=== PATIENT | female | born 1995 | race Caucasian/White ===

== ENCOUNTER 2023-01-25 14:54 | Outpatient (OUT) | payer OTHER, SELFPAY ==
[2023-01-25 15:48] LABS: Basophils Absolute Auto 0.1 10^3/uL (0.0-0.1); Basophils Percent Auto 0.7 % (0.2-2.0); Eosinophils Absolute Auto 0.1 10^3/uL (0.0-0.7); Eosinophils Percent Auto 1.1 % (0.9-7.0); Hematocrit 38.8 % (36.0-48.0); Immature Granulocytes Abs Auto 0.04 10^3/uL (0.00-0.03); Immature Granulocytes Pct Auto 0.4 % (0.0-0.5); Lymphocytes Absolute Auto 3.5 10^3/uL (1.2-3.8); Lymphocytes Percent Auto 39.2 % (20.5-60.0); Mean Corpuscular HGB Conc 33.5 g/dL (29.9-35.2); Mean Corpuscular Hemoglobin 29.1 pg (26.7-34.0); Mean Platelet Volume 9.8 fL (9.5-13.5); Monocytes Absolute Auto 0.6 10^3/uL (0.3-0.8); Monocytes Percent Auto 6.6 % (1.7-12.0); Neutrophils Absolute Auto 4.6 10^3/uL (1.4-6.5); Platelet Count 337 10^3/uL (150-450); Red Blood Count 4.46 10^6/uL (4.20-5.40); Red Cell Distribution Width 12.4 % (11.0-15.0); White Blood Count 8.9 10^3/uL (4.0-11.0)
[2023-01-25 16:45] LABS: Percent Iron Saturation 22.5 %
[2023-01-25 17:31] LABS: Alanine Aminotransferase 46 U/L (14-59); Albumin Globulin Ratio 1.1; Alkaline Phosphatase 79 U/L (46-116); Aspartate Amino Transferase 17 U/L (15-37); Bilirubin Total 0.3 mg/dL (0.2-1.0); Calcium 8.3 mg/dL (8.5-10.1); Carbon Dioxide 25.7 mmol/L (21.0-32.0); Chloride 106 mmol/L (98-107); Estimated GFR (African America >60 (>=60); Estimated GFR (Non-African Ame >60 (>=60); Globulin 3.6 g/dL; Phosphorus 4.4 mg/dL (2.6-4.7); Potassium 3.7 mmol/L (3.5-5.1); Sodium 143 mmol/L (136-145); Total Protein 7.6 g/dL (6.4-8.2)
[2023-01-25 18:14] LABS: Glucose 47 mg/dL (74-106)
[2023-01-29 17:08] LABS: Vitamin B1 (Thiamine), Blood 143.1 nmol/L (66.5-200.0)
== END 2023-01-25 14:55 | disposition home or self-care (01) ==
LOC: LAB 14:54
DX: Z98.84 Bariatric surgery status (principal); K90.9 Intestinal malabsorption, unspecified
CPT/HCPCS: 36415; 80053; 80061; 82306; 82607; 82728; 82746; 83540; 83550; 83735; 84100; 84425; 85025

== ENCOUNTER 2023-08-13 11:31 | Outpatient (OUT) | payer OTHER, SELFPAY ==
--- NOTE | 2023-08-13 11:34 | US_ITS ---
The [address] [address] Patient Name: SAMREEN WEINER MRN: [id number] date: 1995 Sex: F Assigned Patient Location: [facility] Current Patient Location: [facility] Accession/Order Number: [id number] Exam Date: 08/13/2023 11:33 Report Date: 08/13/2023 14:53 At the request of: CLINTON GALLARDO Procedure: US pelvis w/ transvaginal EXAMINATION: US pelvis w/ transvaginal HISTORY: PELVIC PAIN COMPARISON: No relevant comparison available. FINDINGS: Transabdominal and transvaginal images The uterus is normal in size, contour and myometrial echotexture measuring 9.2 x 3.8 x 6.2 cm. The uterus is anteverted. No focal myometrial mass The endometrium measures 11 mm, normal. The right ovary is normal measuring 3.9 x 1.6 x 3.1 cm. Normal color Doppler flow. The left ovary measures 3.7 x 1.9 x 2.0 cm. Normal color Doppler flow. Area of anechoic echogenicity measuring 2.1 cm, simple cyst. No free fluid US/US pelvis w/ transvaginal IMPRESSION: No acute abnormality Electronically authenticated by: GENARO RODRÍGUEZ Date: 08/13/2023 14:53
== END 2023-08-13 11:32 | disposition home or self-care (01) ==
LOC: NOMS 11:32
PROVIDERS: PCP Family Medicine; Visit Provider Obstetrics & Gynecology
DX: R10.2 Pelvic and perineal pain (principal)
CPT/HCPCS: 76830; 76856

== ENCOUNTER 2023-11-05 20:33 | Outpatient (REF) | payer OTHER, SELFPAY | END 2023-11-05 20:34 | disposition home or self-care (01) | LOC: LAB 20:33 | PROVIDERS: PCP Family Medicine; Visit Provider Obstetrics & Gynecology | DX: Z01.419 Encounter for gynecological examination (general) (routine) without abnormal findings (principal) | CPT/HCPCS: 88175 ==

== ENCOUNTER 2024-02-03 15:54 | Outpatient (OUT) | payer OTHER, SELFPAY ==
[2024-02-03 16:30] LABS: Basophils Absolute Auto 0.1 10^3/uL (0.0-0.1); Basophils Percent Auto 0.6 % (0.2-2.0); Eosinophils Absolute Auto 0.1 10^3/uL (0.0-0.7); Eosinophils Percent Auto 0.9 % (0.9-7.0); Hematocrit 43.7 % (36.0-48.0); Hemoglobin 14.4 g/dL (12.0-16.0); Immature Granulocytes Abs Auto 0.03 10^3/uL (0.00-0.03); Immature Granulocytes Pct Auto 0.3 % (0.0-0.5); Lymphocytes Absolute Auto 4.2 10^3/uL (1.2-3.8); Lymphocytes Percent Auto 38.1 % (20.5-60.0); Mean Corpuscular Hemoglobin 28.5 pg (26.7-34.0); Mean Corpuscular Volume 86.4 fL (81.0-99.0); Mean Platelet Volume 9.8 fL (9.5-13.5); Monocytes Absolute Auto 0.7 10^3/uL (0.3-0.8); Monocytes Percent Auto 6.2 % (1.7-12.0); Neutrophils Absolute Auto 5.9 10^3/uL (1.4-6.5); Neutrophils Percent Auto 53.9 % (43.0-75.0); Platelet Count 430 10^3/uL (150-450); Red Blood Count 5.06 10^6/uL (4.20-5.40); Red Cell Distribution Width 12.4 % (11.0-15.0)
[2024-02-03 17:53] LABS: Alanine Aminotransferase 42 U/L (14-59); Albumin Globulin Ratio 1.1; Albumin Level 4.1 g/dL (3.4-5.0); Alkaline Phosphatase 77 U/L (46-116); Anion Gap 16.7; Aspartate Amino Transferase 22 U/L (15-37); BUN Creatinine Ratio 28.2; Bilirubin Total 0.3 mg/dL (0.2-1.0); Calcium 8.8 mg/dL (8.5-10.1); Carbon Dioxide 22.7 mmol/L (21.0-32.0); Chloride 101 mmol/L (98-107); Estimated GFR (African America >60 (>=60 mL/min/1.73m^2); Estimated GFR (Non-African Ame >60 (>=60 mL/min/1.73m^2); Globulin 3.8 g/dL; Glucose 96 mg/dL (74-106); Magnesium 1.9 mg/dL (1.8-2.4); Phosphorus 3.4 mg/dL (2.6-4.7); Potassium 3.4 mmol/L (3.5-5.1); Sodium 137 mmol/L (136-145); Total Protein 7.9 g/dL (6.4-8.2)
[2024-02-05 04:08] LABS: Vitamin B12 1080 pg/mL (232-1245)
== END 2024-02-03 15:55 | disposition home or self-care (01) ==
LOC: LAB 15:54
PROVIDERS: PCP Family Medicine; Visit Provider Nurse Practitioner Family
DX: K90.9 Intestinal malabsorption, unspecified (principal); Z98.84 Bariatric surgery status
CPT/HCPCS: 36415; 80053; 82306; 82607; 82728; 82746; 83540; 83550; 83735; 84100; 84425; 85025

== ENCOUNTER 2024-04-13 13:52 | Emergency (ER) | payer MEDICAID, SELFPAY ==
[2024-04-13 14:03] VITALS: BP 153/51; PULSE 74; TEMP 36.6; O2SAT 100; BMI 28.3
--- NOTE | 2024-04-13 14:14 | ED_ITS ---
HPI - Abdominal Pain General Chief Complaint: Abdominal Pain Stated Complaint: ABDOMINAL PAIN Time Seen by Provider: 04/13/24 14:08 History of Present Illness HPI narrative: 29 year old female presents to the ED for epigastric pain. Onset was this morning. Denies fever, chills, injury, N/V/D, urinary sx. She is 8 weeks ; she does not feel that is related to her pain today. States she has had numerous abd surgeries and has known abd hernias. Reports gastric sleeve in 2018. She had a revision with bypass surgery and a hernia repair in 2021. Reports abdominoplasty within the past 2-3 years as well. She has also had a c- section. Denies vaginal bleeding or discharge. Denies lower abd pain. Related Data Allergies Allergy/AdvReac Type Severity Reaction Status Date / Time clindamycin AdvReac Severe Anaphylaxis Verified 04/13/24 14:03 Penicillins AdvReac Severe Rash Verified 04/13/24 14:03 Review of Systems ROS Constitutional Denies: fever or chills Ears, nose, mouth, and throat Denies: throat pain or neck pain Cardiovascular Denies: chest pain Respiratory Denies: shortness of breath Gastrointestinal Reports: abdominal pain; Denies: nausea, vomiting or diarrhea Genitourinary Denies: painful urination or urinary frequency Musculoskeletal Denies: back pain or neck pain Integumentary/Breast Denies: rash Neurological Denies: headache or dizziness PFSH PFSH Social History Little interest or pleasure in doing things: not at all Feeling down, depressed, or hopeless: not at all Exam Constitutional Vital Signs, click to edit/add: Last Vital Signs Temp 97.9 F 04/13/24 14:03 Pulse 84 04/13/24 15:50 Resp 18 04/13/24 15:50 BP 120/84 04/13/24 15:50 Pulse Ox 98 04/13/24 15:50 O2 Del Method Room Air 04/13/24 15:50 Common normals: no apparent distress and oriented x3 General appearance: cooperative HENMT Mouth: lip normal and tongue normal Eye Common normals: conjunctivae normal and no scleral icterus Neck & C-Spine Common normals: supple Respiratory Common normals: normal respiratory effort Effort & inspection: able to speak in complete sentences Cardio Common normals: regular rate and regular rhythm GI Common normals: Normal to inspection, nondistended, normoactive bowel sounds present and soft to palpation Palpation: soft and tender Details: epigastric; no guarding and not rigid Neuro Common normals: oriented x3 and moves all extremities Sensorium/orientation: awake and alert Speech: speech normal Course Vital Signs Vital signs: Vital Signs Temperature 97.9 F 04/13/24 14:03 Pulse Rate 74 04/13/24 14:03 Respiratory Rate 18 04/13/24 14:03 Blood Pressure 153/51 H 04/13/24 14:03 Pulse Oximetry 100 04/13/24 14:03 Temperature 97.9 F 04/13/24 14:03 Pulse Rate 84 04/13/24 15:50 Respiratory Rate 18 04/13/24 15:50 Blood Pressure 120/84 04/13/24 15:50 Pulse Oximetry 98 04/13/24 15:50 Oxygen Delivery Method Room Air 04/13/24 15:50 MDM - Abdominal Pain MDM Narrative Medical decision making narrative: Laboratory studies were unremarkable. Pt is . She was given a GI cock tail and Tylenol with some improvement in her sx. She was comfortable being discharged home. Follow up with pcp, [facility], and bypass surgeon for a recheck, further evaluation and treatment. Differential Diagnosis Differential diagnosis: Likely abdominal pain, gastroenteritis and other (dyspepsia) Medical Records Attestation: I reviewed the patient's medical records. Lab Data Attestation: I reviewed the patient's lab results. Labs: Lab Results 04/13/24 04/13/24 Range/Units 14:10 14:55 WBC 12.0 H (4.0-11.0) 10^3/uL RBC 4.85 (4.20-5.40) 10^6/uL Hgb 14.0 (12.0-16.0) g/dL Hct 40.8 (36.0-48.0) % MCV 84.1 (81.0-99.0) fL MCH 28.9 (26.7-34.0) pg MCHC 34.3 (29.9-35.2) g/dL RDW 12.8 (11.0-15.0) % Plt Count 431 (150-450) 10^3/uL MPV 9.8 (9.5-13.5) fL Neut % (Auto) 61.4 (43.0-75.0) % Lymph % (Auto) 30.8 (20.5-60.0) % [place] % (Auto) 6.2 (1.7-12.0) % Eos % (Auto) 0.7 L (0.9-7.0) % Baso % (Auto) 0.6 (0.2-2.0) % Neut # (Auto) 7.4 H (1.4-6.5) 10^3/uL Lymph # (Auto) 3.7 (1.2-3.8) 10^3/uL [place] # (Auto) 0.7 (0.3-0.8) 10^3/uL Eos # (Auto) 0.1 (0.0-0.7) 10^3/uL Baso # (Auto) 0.1 (0.0-0.1) 10^3/uL Abs Immat Gran (auto) 0.04 H (0.00-0.03) 10^3/uL Imm/Tot Granulo (auto) 0.3 (0.0-0.5) % Sodium 138 (136-145) mmol/L Potassium 3.6 (3.5-5.1) mmol/L Chloride 103 (98-107) mmol/L Carbon Dioxide 23.5 (21.0-32.0) mmol/L Anion Gap 15.1 BUN 7.0 (7.0-18.0) mg/dL Creatinine 0.65 (0.55-1.02) mg/dL Est GFR ( Amer) >60 (>=60 mL/min/1.73m^2) Est GFR (Non-Af Amer) >60 (>=60 mL/min/1.73m^2) BUN/Creatinine Ratio 10.8 Glucose 85 (74-106) mg/dL Calcium 8.7 (8.5-10.1) mg/dL Total Bilirubin 0.3 (0.2-1.0) mg/dL AST 16 (15-37) U/L ALT 24 (14-59) U/L Alkaline Phosphatase 73 (46-116) U/L Total Protein 7.9 (6.4-8.2) g/dL Albumin 3.8 (3.4-5.0) g/dL Globulin 4.1 g/dL Albumin/Globulin Ratio 0.9 Lipase 46.0 (16.0-77.0) U/L Urine Color Lt. yellow (YELLOW) Urine Clarity Clear (CLEAR) Urine pH 5.5 (5.0-9.0) Ur Specific [place] >=1.030 A (1.005-1.025) Urine Protein Negative (NEG/TRACE) mg/dL Urine Glucose (UA) Negative (NEGATIVE) mg/dL Urine Ketones Negative (NEGATIVE) mg/dL Urine Occult Blood Negative (NEGATIVE) Urine Nitrite Negative (NEGATIVE) Urine Bilirubin Negative (NEGATIVE) Urine Urobilinogen 0.2 (0.2-1.0) EU/dL Ur Leukocyte Esterase Negative (NEGATIVE) Urine HCG, Qual Positive A (NEGATIVE) Discharge Plan Discharge Chief Complaint: Abdominal Pain Clinical Impression: Abdominal pain, epigastric Patient Disposition: Home, Self-Care Time of Disposition Decision: 16:31 Condition: Good Mode of Transportation: Private Vehicle Print Language: Bhutanese Instructions: Abdominal Pain in (ED), Epigastric Pain (ED) Additional Instructions: Return to the ER for worsening symptoms. Referrals: NARINDER HERNANDEZ [Primary Care Provider] - 1 week Discharge Date/Time: 04/13/24 16:59
[2024-04-13 14:25] LABS: Basophils Absolute Auto 0.1 10^3/uL (0.0-0.1); Basophils Percent Auto 0.6 % (0.2-2.0); Eosinophils Absolute Auto 0.1 10^3/uL (0.0-0.7); Eosinophils Percent Auto 0.7 % (0.9-7.0); Hematocrit 40.8 % (36.0-48.0); Immature Granulocytes Abs Auto 0.04 10^3/uL (0.00-0.03); Immature Granulocytes Pct Auto 0.3 % (0.0-0.5); Lymphocytes Absolute Auto 3.7 10^3/uL (1.2-3.8); Lymphocytes Percent Auto 30.8 % (20.5-60.0); Mean Corpuscular HGB Conc 34.3 g/dL (29.9-35.2); Mean Corpuscular Hemoglobin 28.9 pg (26.7-34.0); Mean Corpuscular Volume 84.1 fL (81.0-99.0); Mean Platelet Volume 9.8 fL (9.5-13.5); Monocytes Absolute Auto 0.7 10^3/uL (0.3-0.8); Monocytes Percent Auto 6.2 % (1.7-12.0); Neutrophils Absolute Auto 7.4 10^3/uL (1.4-6.5); Neutrophils Percent Auto 61.4 % (43.0-75.0); Platelet Count 431 10^3/uL (150-450); Red Blood Count 4.85 10^6/uL (4.20-5.40); Red Cell Distribution Width 12.8 % (11.0-15.0)
[2024-04-13 14:40] LABS: Alanine Aminotransferase 24 U/L (14-59); Albumin Globulin Ratio 0.9; Albumin Level 3.8 g/dL (3.4-5.0); Alkaline Phosphatase 73 U/L (46-116); Anion Gap 15.1; Aspartate Amino Transferase 16 U/L (15-37); BUN Creatinine Ratio 10.8; Bilirubin Total 0.3 mg/dL (0.2-1.0); Calcium 8.7 mg/dL (8.5-10.1); Carbon Dioxide 23.5 mmol/L (21.0-32.0); Chloride 103 mmol/L (98-107); Estimated GFR (African America >60 (>=60 mL/min/1.73m^2); Estimated GFR (Non-African Ame >60 (>=60 mL/min/1.73m^2); Globulin 4.1 g/dL; Glucose 85 mg/dL (74-106); Potassium 3.6 mmol/L (3.5-5.1); Sodium 138 mmol/L (136-145); Total Protein 7.9 g/dL (6.4-8.2)
[2024-04-13 15:04] LABS: Bilirubin Urine NEGATIVE (NEGATIVE); Blood Urine NEGATIVE (NEGATIVE); Clarity Urine CLEAR (CLEAR); Color Urine LT. YELLOW (YELLOW); Glucose Urine UA NEGATIVE (NEGATIVE); Ketones Urine NEGATIVE (NEGATIVE); Leukocyte Esterase Urine NEGATIVE (NEGATIVE); Nitrite Urine NEGATIVE (NEGATIVE); Protein Urine NEGATIVE (NEG/TRACE); Specific Gravity Urine >=1.030 (1.005-1.025); Urobilinogen Urine 0.2 EU/dL (0.2-1.0); pH Urine 5.5 (5.0-9.0)
[2024-04-13 15:07] LABS: HCG Qualitative Urine* POSITIVE (NEGATIVE); Internal Control Within Normal Limits
[2024-04-13 15:09] LABS: Urine Microscopic Indicated NO
[2024-04-13] MEDS: lidocaine HCL 15 ML, MAG HYDROX/ALUMINUM HYD/SIMETH 30 ML, HYOSCYAMINE SULFATE 0.25 MG PO (15:47)
[2024-04-13] MEDS: ACETAMINOPHEN 500 MG TABLET 1000 MG PO (15:48)
[2024-04-13 15:50] VITALS: BP 120/84; PULSE 84; O2SAT 98
== END 2024-04-13 16:59 | disposition home or self-care (01) ==
PROVIDERS: Nurse Practitioner Family; Emergency Provider Emergency Medicine; PCP Family Medicine
DX: O99.891 Other specified diseases and conditions complicating pregnancy (principal); R10.13 Epigastric pain; O99.841 Bariatric surgery status complicating pregnancy, first trimester; Z3A.08 8 weeks gestation of pregnancy; O34.219 Maternal care for unspecified type scar from previous cesarean delivery
CPT/HCPCS: 36415; 80053; 81003; 83690; 84703; 85025; 99284

== ENCOUNTER 2024-04-17 09:23 | Outpatient (OUT) | payer MEDICAID, SELFPAY ==
--- NOTE | 2024-04-17 09:27 | US_ITS ---
[address] [address] Patient Name: SAMREEN MARS MRN: [id number] date: 1995 Sex: F Assigned Patient Location: [facility] Current Patient Location: [facility] Accession/Order Number: [id number] Exam Date: 04/17/2024 09:28 Report Date: 04/17/2024 11:10 At the request of: CLINTON GALLARDO Procedure: US OB transvaginal EXAMINATION: US OB transvaginal HISTORY: MISSED MENSES COMPARISON: No relevant comparison available. FINDINGS: Transvaginal images Dooley intrauterine gestation Gestational sac: 3.53 cm, 8 weeks 5 days CRL: 2.72 cm Heart rate: 174 beats minute Cervix: Closed, 4.3 cm The uterus is normal, anteverted, anteflexed The ovaries are normal Clinical age: 9 weeks 1 day Clinical CALOS: 11/19/2024 Ultrasound age: 9 weeks 4 days Ultrasound [facility]OS: 11/16/2024 US/US OB transvaginal IMPRESSION: Viable dooley intrauterine gestation measuring 9 weeks 4 days Electronically authenticated by: GENARO RODRÍGUEZ Date: 04/17/2024 11:10
--- OUTSIDE RECORDS SUMMARY | 2024-04-17 09:46 | XMS_ITS | CCD ---
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 Name Role Phone XENA MCCALLUM Sheree Primary Care Physician [phone] DESMOND, DR DUNG English Admitting Unavailable COOK, DR DUNG English Attending Unavailable MARY, DR BARCENAS Primary Care Unavailable COOK, DR DUNG English Consulting Unavailable ZIEBSAHIL, DR MELLISSA Higgins Consulting Unavailable MISC, DR NINO Admitting Unavailable MISC, DR NINO Attending Unavailable MARY, DR BARCENAS Primary Care Unavailable MISC, DR NINO Consulting Unavailable MISC, DR NINO Admitting Unavailable MISC, DR NINO Attending Unavailable MARY, DR BARCENAS [facility] Care Unavailable MISC, DR NINO Consulting Unavailable PAULINA, DR ALONZO Admitting Unavailable PAULINA, DR ALONZO Attending Unavailable MARY, DR BARCENAS Primary Care Unavailable PAULINA, DR ALONZO Consulting Unavailable AGUBOSIM, BINU Consulting Unavailable UGBANA, KIMBERLEY Consulting Unavailable PAULINA, DR ALONZO Procedure Practitioner Unavailab CHERYL Reed Admitting Unavailable LALOR, CHERYL Attending Unavailable MARY, DR BARCENAS Primary Care Unavailable PAULINA, DR ALONZO Admitting Unavailable PAULINA, DR ALONZO Attending Unavailable MARY, DR BARCENAS [facility] Care Unavailable MISC, DR NINO Admitting Unavailable MISC, DR NINO Attending Unavailable MARY, DR BARCENAS Primary Care Unavailable MISC, DR NINO Consulting Unavailable LALORCHERYL Admitting Unavailable LALOR, CHERYL Attending Unavailable MARY, DR BARCENAS Primary Care Unavailable LACHERYL REYES Consulting Unavailable DESMOND, DR DUNG English Admitting Unavailable COOK, DR DUNG English Attending Unavailable MARY, DR BARCENAS Primary Care Unavailable COOK, DR DUNG English Consulting Unavailable MARCOS, DR GENARO Kwon Consulting Unavailable Dung LOGAN Attending Unavailable ISABEL MURERLL Attending Unavailable CLINTON LEWIS Attending Unavailable ISABEL MURRELL Attending Unavailable HANDY, ISABEL Higgins Attending Unavailable ISABEL MURRELL Attending Unavailable ISABEL MURRELL Attending Unavailable PAULINA, CLINTON Attending Unavailable XENA MCCALLUM Attending Unavailable XENA MCCALLUM Referring Unavailable Xena Mccallum MD Primary Care Provider Isabel Murrell NP Unavailable Allergies Allergy Classification Reported Allergen(s) Allergy Type Date of Onset Reaction(s) Facility (9 sources) Clindamycin; Translations: [clindamycin] Drug Allergy 4 Swelling [facility] (3 sources) Penicillin; Translations: [penicillin] Drug Allergy Rash [facility] (2 sources) Clindamycin Drug Allergy 1 [facility] (1 source) Penicillins Drug allergy (disorder) 4 [facility] (6 sources) Lamotrigine Allergy to substance 4 [facility] (6 sources) Morphine Drug Allergy 4 Hives [facility] (6 sources) Penicillins Drug Allergy 6 Rash, Unknown [facility] Medications Current Medications Medication Drug Class(es) Dates Sig (Normalized) Sig (Original) busPIRone hydrochloride 10 mg oral tablet (9 sources) Start: 12-10-2023 End: 01-08-2025 take 1 tablet by mouth every twenty-four hours as needed for anxiety and anxiety busPIRone (Buspar) 10 MG tablet Indications: Anxiety Take 1 tablet (10 mg) by mouth Daily as needed (anxiety) Taking half a tablet 90 tablet 1 01/09/2024 01/08/2025 Active Start: 03-22-2021 take 1 mg by mouth twice daily busPIRone 5 mg Tab mg tab(s), Oral, BID, Refills(s) 0 Start Date: 03/22/21 Status: Ordered cephalexin 500 mg oral capsule (2 sources) Cephalosporin Antibacterial Start: 03-22-2021 take 1 mg by mouth every twelve hours Keflex 500 mg Cap mg cap(s), Oral, q12hr, Refills(s) 0 Start Date: 03/22/21 Status: Ordered Metoclopramide (2 sources) Dopamine-2 Receptor Antagonist Start: 03-22-2021 Reglan Refills(s) 0 Start Date: 03/22/21 Status: Ordered Multi Vitamins oral tablet (2 sources) Start: 08-16-2021 Multi Vitamins oral tablet Oral, Daily Start Date: 08/16/21 Status: Ordered omeprazole 40 mg delayed release oral capsule (1 source) Proton Pump Inhibitor Start: 03-22-2021 take 1 mg by mouth once daily omeprazole 40 mg Cap-DR mg cap(s), Oral, Daily, Refills(s) 0 Start Date: 03/22/21 Status: Ordered omeprazole 40 mg Cap-DR (1 source) Start: 03-22-2021 take 1 mg by mouth once daily omeprazole 40 mg Cap-DR mg cap(s), Oral, Daily, Refills(s) 0 Start Date: 03/22/21 Status: Ordered oxybutynin (2 sources) Cholinergic Muscarinic Antagonist Start: 03-22-2021 Ditropan XL Oral, Daily, Refills(s) 0 Start Date: 03/22/21 Status: Ordered DHA (2 sources) Start: 03-22-2021 take 1 mg by mouth once daily DHA mg, Oral, Daily, Refill(s) 0 Start Date: 03/22/21 Status: Ordered sulfamethoxazole 800 mg / trimethoprim 160 mg oral tablet (4 sources) Dihydrofolate Reductase Inhibitor Antibacterial, Sulfonamide Antimicrobial Start: 01-09-2024 End: 01-16-2024 take 1 tablet by mouth once in the morning, then take 1 tablet by mouth once at bedtime sulfamethoxazole- trimethoprim (Bactrim DS) 800-160 MG per tablet Indications: Acute cystitis without hematuria Take 1 tablet by mouth in the morning and 1 tablet before bedtime. Do all this for 7 days. 14 tablet 01/09/2024 01/16/2024 Active tiZANidine 4 mg oral tablet (8 sources) Central alpha-2 Adrenergic Agonist Start: 12-10-2023 End: 05-20-2024 tiZANidine (Zanaflex) 4 MG tablet Indications: Neck pain , Cervicogenic headache Take 1 tablet (4 mg) by mouth as needed at bedtime for muscle spasms 90 tablet 01/09/2024 04/08/2024 Active topiramate 25 mg oral tablet (7 sources) Start: 08-08-2023 End: 01-08-2025 take 1 tablet by mouth in the morning topiramate (Topamax) 25 MG tablet Indications: Intractable chronic migraine without aura and with status migrainosus (CMS/HCC) Take 1 tablet (25 mg) by mouth in the morning and 1 tablet (25 mg) before bedtime. 180 tablet 3 01/09/2024 01/08/2025 Active traZODone hydrochloride 100 mg oral tablet (2 sources) Serotonin Reuptake Inhibitor Start: 03-22-2021 take 1 mg by mouth twice daily traZODONE 100 mg Tab mg tab(s), Oral, BID, Refills(s) 0 Start Date: 03/22/21 Status: Ordered ubrogepant 100 mg oral tablet (6 sources) Start: 08-08-2023 take 1 tablet by mouth once daily Ubrogepant (Ubrelvy) 100 MG tablet Indications: Intractable chronic migraine without aura and with status migrainosus (CMS/HCC) Take 100 mg by mouth Daily 30 tablet 08/08/2023 Active Problems Active Problems Problem Classification Problem Date Documented Da te Episodic/Chronic Anxiety disorders (7 sources) Anxiety; Translations: [Anxiety disorder, unspecified] Onset: 4 06-18-2023 Chronic Esophageal disorders (6 sources) Gastroesophageal reflux disease; Translations: [Gastro-esophageal reflux disease without esophagitis] Onset: 4 06-18-2023 Chronic Genitourinary symptoms and ill-defined conditions (3 sources) Microscopic hematuria; Translations: [Other microscopic hematuria] 01-11-2024 Episodic Headache; including migraine (1 source) Refractory migraine without aura; Translations: [Chronic migraine without aura, intractable, with status migrainosus] 01-09-2024 Chronic Headache; including migraine (2 sources) Cervicogenic headache; Translations: [Cervicogenic headache] 02-19-2024 Episodic Mood disorders (6 sources) Depressive disorder; Translations: [Depression] Onset: 4 06-18-2023 Chronic Neoplasms of unspecified nature or uncertain behavior (6 sources) Essential thrombocythemia; Translations: [Essential (hemorrhagic) thrombocythemia] Onset: 4 06-18-2023 Chronic Other gastrointestinal disorders (4 sources) Intestinal malabsorption, unspecified; Translations: [INTESTINAL MALABSORPTION UNS] Onset: 2 Chronic Other gastrointestinal disorders (5 sources) Bariatric surgery status; Translations: [BARIATRIC SURGERY STATUS] Onset: 2 Episodic Other nutritional; endocrine; and metabolic disorders (1 source) Obese class I; Translations: [Body mass index (BMI) 33.0-33.9, adult] Onset: 2 Chronic Other nutritional; endocrine; and metabolic disorders (2 sources) Body mass index 30+ - obesity 08-16-2021 Chronic Spondylosis; intervertebral disc disorders; other back problems (2 sources) Neck pain; Translations: [Cervicalgia] 02-19-2024 Episodic Unclassified (3 sources) CONTACT W/AND (SUSP) EXPOS COVID-19; Translations: [CONTACT W/AND (SUSP) EXPOS COVID-19] Onset: 2 Urinary tract infections (2 sources) Acute cystitis; Translations: [Acute cystitis without hematuria] 01-09-2024 Episodic Viral infection (1 source) COVID-19; Translations: [COVID-19] Onset: 2 Past or Other Problems Problem Classification Problem Date Documented Da te Episodic/Chronic Calculus of urinary tract (14 sources) Kidney stone; Translations: [Calculus of kidney] Onset: 09-05-2016 Episodic Deficiency and other anemia (6 sources) Anemia; Translations: [Anemia, unspecified] Onset: 06-18-2023 06-18-2023 Episodic Deficiency and other anemia (6 sources) Iron deficiency anemia secondary to inadequate dietary iron intake; Translations: [Other iron deficiency anemias] Onset: 08-10-2021 06-18-2023 Episodic Other aftercare (1 source) Other prison (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; Translations: [OTH VEHICLE UPHOLSTERER CURRENT DRUG THERAPY] Onset: 06-09-2021 Episodic Other complications of ; puerperium affecting management of mother (1 source) Other viral diseases complicating childbirth; Translations: [OTH VIRAL DISEASES COMP CHILDBIRTH] Onset: 06-09-2021 Episodic Other complications of ; puerperium affecting management of mother (1 source) Abnormality in heart rate and rhythm complicating labor and delivery; Translations: [ABN FETL HEART RATE RHYTHM COMP L AND D] Onset: 06-09-2021 Episodic Other complications of ; puerperium affecting management of mother (1 source) Bariatric surgery status complicating childbirth; Translations: [BARIATRIC SURG STS COMP CHILDBIRTH] Onset: 06-09-2021 Episodic Other complications of (3 sources) Maternal care for excessive growth, third trimester, not applicable or unspecified; Translations: [MAT CARE EXCSS FTL GRTH 3RD TRI UNS] Onset: 05-11-2021 Episodic Other gastrointestinal disorders (6 sources) History of bypass of stomach; Translations: [Bariatric surgery status] Onset: 08-10-2021 06-18-2023 Episodic Other and delivery including normal (5 sources) Encounter for care and examination of lactating mother; Translations: [Single live ] Onset: 05-22-2021 Episodic Residual codes; unclassified (1 source) 39 weeks gestation of ; Translations: [39 WEEKS GESTATION OF ] Onset: 06-09-2021 Episodic Residual codes; unclassified (6 sources) Insomnia; Translations: [Insomnia, unspecified] Onset: 06-18-2023 06-18-2023 Episodic Umbilical cord complication (1 source) Labor and delivery complicated by cord around neck, without compression, not applicable or unspecified; Translations: [L AND D COMP CORD NECK NO COMPRS NA/UNS] Onset: 06-09-2021 Episodic Unclassified (1 source) CONTACT W/AND (SUSP) EXPOS COVID-19; Translations: [CONTACT W/AND (SUSP) EXPOS COVID-19] Onset: 12-28-2021 Results Test Name Value Interpretation Reference Range Facility ALL CBC WITH AUTO DIFFon BASOPHILS ABSOLUTE AUTO 0.1 [facility] Basophils/100 WBC (Bld) 0.6 % 0.2 - 2.0 % [facility] Eosinophils/100 WBC (Bld) 0.9 % 0.9 - 7.0 % [facility] Erythrocyte distribution width (RBC) [Ratio] 12.4 % 11.0 - 15.0 % [facility] Hematocrit (Bld) [Volume fraction] 43.7 % 36.0 - 48.0 % [facility] Hemoglobin (Bld) [Mass/Vol] 14.4 g/dL 12.0 - 16.0 g/dL [facility] IMMATURE GRANULOCYTES ABS AUTO 0.03 [facility] Immature granulocytes/100 WBC (Bld) 0.3 % 0.0 - 0.5 % [facility] Interpretation and review of laboratory results Abnormal [facility] LYMPHOCYTES ABSOLUTE AUTO 4.2 High [facility] Lymphocytes/100 WBC (Bld) 38.1 % 20.5 - 60.0 % [facility] MCH (RBC) [Entitic mass] 28.5 pg 26.7 - 34.0 pg [facility] MCHC (RBC) [Mass/Vol] 33.0 g/dL 29.9 - 35.2 g/dL [facility] MCV (RBC) [Entitic vol] 86.4 fL 81.0 - 99.0 fL [facility] MONOCYTES ABSOLUTE AUTO 0.7 [facility] Monocytes/100 WBC (Bld) 6.2 % 1.7 - 12.0 % [facility] NEUTROPHILS ABSOLUTE AUTO 5.9 [facility] Neutrophils/100 WBC (Bld) 53.9 % 43.0 - 75.0 % [facility] Platelet mean volume (Bld) [Entitic vol] 9.8 fL 9.5 - 13.5 fL [facility] TB EO # 0.1 [facility] PLT 430 [facility] RBC 5.06 [facility] WBC 11.0 [facility] CT ABDOMEN PELVIS WO IV CONT STEPHENTon 01-16-2024 CT ABDOMEN PELVIS WO IV CONTRAST EXAM: CT Abdomen and Pelvis without Contrast: REASON FOR EXAM: Pelvic pain, pressure, hematuria, history of kidney stones. COMPARISON: None. TECHNIQUE: Spiral images are obtained through the abdomen and pelvis. IV CONTRAST: None. FINDINGS, Abdomen: Lower Chest: Heart is not enlarged. No coronary calcifications are apparent. Surgical changes at the gastroesophageal junction noted. Lung bases appear clear. Liver: The liver is slightly enlarged at 18.7 cm. No focal abnormality is apparent. Spleen: Unremarkable. Gallbladder/Biliary system: Gallbladder is absent. No biliary dilatation identified. Pancreas: Unremarkable. Adrenals: Unremarkable and symmetric. Kidneys: No hydronephrosis is apparent. There are several 2 to 4 mm calcifications in the right mid and lower collecting system. There is a 3 mm calcification in the left mid pole collecting system. There is a 1.5 cm fluid density lesion in the left upper pole cortex likely representing a small cyst. Ureters appear clear. Retroperitoneum: Unremarkable. Aorta is normal in caliber. No adenopathy identified. Bowel: Changes of gastric bypass surgery noted. There is fluid distention of the proximal small bowel measuring as great as 3 cm. Suture line is noted in the small bowel. At the anastomosis, there is some wall thickening. More distal small bowel loops are collapsed. There is moderate stool in the colon. Appendix is not discretely visualized. Peritoneum/Mesentery : A small amount of fluid is seen subjacent to the umbilicus, although this is discretely marginated and measures 1.9 x 1.1 cm. This may relate to prior surgery. FINDINGS, Pelvis: No mass, adenopathy or free fluid is apparent. Bladder is unremarkable. Inguinal regions are clear. Uterus is typical in configuration. Adnexal regions are unremarkable. IMPRESSION: 1. Mild distention and wall thickening of the proximal small bowel. This is notable as it approaches the enteroenteric anastomosis. More distally, the small bowel is largely collapsed. Although not definitive, early, intermittent or partial small bowel obstruction may be a possibility. Followup radiographs and clinical correlation advised in this regard. 2. Bilateral intrarenal calculi. No ureteral calculi or hydronephrosis identified, however. 3. Small probable seroma subjacent to the umbilicus. This may relate to prior surgery. All CT scans at this institution are performed using dose optimization techniques as appropriate for the performed exam including the following: Automated exposure control Adjustment of the mA and/or kV according to patient size Use of iterative reconstruction technique *This report is generated using voice recognition reporting ([employer]). On occasion [employer] erroneously drops words from the report or replaces the spoken word with similar sounding words. Please call with any questions/concerns regarding this report.* Dictated and transcribed 01/17/2024/anna Preliminary report sent to [facility] on 01/17/2024 at 9:45 a.m. Nikkie confirmed doctor has report in hand. This report has been electronically signed and approved by the interpreting radiologist. Electronically Signed Ab Retana M.D. 2024-01-17 11:31:48 Normal Not Available Comment on above: Order Comment: PEKVI C PAIN, PRESSURE, HEMATURIA, HX KIDNEY STONES Bacteria identified Cx Nom ( U)on 01-11-2024 Appearance (U) Adequate [facility] Internal identifier for Provider [id number] [facility] Specimen source Nom (Unsp spec) URINE [facility] STATUS FINAL [facility] Laboratory - Microbiology an d Antimicrobial susceptibilityon 01-11-2024 Bacteria identified Cx Nom (U) SEE NOTE [facility] Comment on above: Less than 10,000 CFU/mL of single Gram negative organism isolated. No further testing will be performed. If clinically indicated, recollection using a method to minimize contamination, with prompt transfer to Urine Culture Transport Tube, is recommended. Laboratory - Miscellaneous t estson 01-11-2024 Service comment (Unsp spec) [Interp] [facility] Comment on above: This urine was sanju zed for the presence of WBC, RBC, bacteria, casts, and other formed elements. Only those elements seen were reported. No Panel Informationon 01-10 Performing Organization Information Site ID: QPT Name: [facility] Address: [address] [place] [address], [address] [place] [phone] Director: Brenden Conde MD [facility] Urinalysis complete panel (U )on 01-11-2024 Appearance (U) CLEAR CLEAR [facility] Bacteria LM.HPF (Urine sed) [#/Area] NONE SEEN NONE SEEN /HPF [facility] Bilirubin Ql (U) Negative NEGATIVE [facility] Color (U) YELLOW YELLOW [facility] Epithelial cells.squamous LM.HPF (Urine sed) [#/Area] 0-5 < OR = 5 /HPF [facility] Glucose Ql (U) Negative NEGATIVE [facility] Hemoglobin Ql (U) Negative NEGATIVE [facility] Hyaline casts (Urine sed) [#/Area] NONE SEEN NONE SEEN /LPF [facility] Interpretation and review of laboratory results Abnormal [facility] Ketones Ql (U) Negative NEGATIVE [facility] Leukocyte esterase Test strip Ql (U) 1+ Abnormal NEGATIVE [facility] Nitrite Ql (U) Negative NEGATIVE [facility] pH (U) 7.0 [pH] 5.0 - 8.0 [facility] Protein Ql (U) Negative NEGATIVE [facility] RBC LM.HPF (Urine sed) [#/Area] 3-10 Abnormal < OR = 2 /HPF [facility] Specific gravity (U) [Rel density] 1.015 1.001 - 1.035 [facility] WBC LM.HPF (Urine sed) [#/Area] 0-5 < OR = 5 /HPF [facility] Urinalysis macro (dipstick) panel (U)on 01-09-2024 Bilirubin, UA Negative Negative - 4(70) +++ mg/dL [facility] Blood, UA Positive Negative - 50 Liam/mcL [facility] Clarity, UA Clear [facility] Color, UA Light Yellow [facility] Glucose, UA Negative Negative - 1999(110) ++++ mg/dL [facility] Interpretation and review of laboratory results Abnormal [facility] Ketones, UA Negative Negative - 160(16) ++++ mg/dL [facility] Leukocytes, UA 1+ Negative - 500+++ Mele/mcL [facility] Nitrite, UA Negative Negative - Positive [facility] pH, UA 6.0 5 - 9 [facility] Protein, UA Trace Negative - 1999(20) ++++ mg/dL [facility] Spec Grav, UA 1.020 1 - 1.03 [facility] Urobilinogen, UA 1.0 0.2 - 12 mg/dL [facility] Physician Orderon 03-26-2023 Physician Order [id number] #[id number] Normal [facility] Formson 09-13-2022 Forms [id number] #[id number] Normal [facility] XR KUB 1 VIEWon 04-09-2022 XR KUB 1 VIEW EXAMINATION: XR KUB 1 VIEW HISTORY: Kidney stone COMPARISON: No relevant comparison available. FINDINGS: KIDNEY/URETER - RIGHT: No visible renal or ureteral calcifications. KIDNEY/URETER - LEFT: No visible renal or ureteral calcifications. PELVIS: No visible ureteral calcifications. Any visible calcifications favor phleboliths. BOWEL: No abnormal dilation or deviation. BONES: No acute abnormality. OTHER: Suture lines and surgical clips. No abnormal gaseous collections. IMPRESSION: No definite urinary tract calculi Electronically authenticated by: GENARO RODRÍGUEZ Date: 2022-04-09 18:02 Normal [facility] VITAMIN B1 (THIAMINE)on Vit. B1, Whole Blood 117.7 nmol/L Normal 66.5-200.0 [facility] Comment on above: Performed By: #### [facility] #### [facility] [address] [address] [address] Kerrie Russell CBC AUTO DIFFon 02-28-2022 BASO # 0.1 103/ul Normal 0.0-0.1 [facility] Comment on above: Performed By: #### C BC #### [facility] [address] [place] [address] Dr. Kerrie Russell Basophils/100 WBC (Bld) 0.6 % Normal 0.2-2.0 [facility] Comment on above: Performed By: #### C BC #### [facility] [address] [place] [address] Dr. Kerrie Russell EO # 0.1 103/ul Normal 0.0-0.7 [facility] Comment on above: Performed By: #### C BC #### [facility] [address] [place] [address] Dr. Kerrie Russell Eosinophils/100 WBC (Bld) 1.3 % Normal 0.9-7.0 [facility] Comment on above: Performed By: #### C BC #### [facility] [address] [place] [address] Dr. Kerrie Russell Erythrocyte distribution width (RBC) [Ratio] 13.2 % Normal 11.0-15.0 [facility] Comment on above: Performed By: #### C BC #### [facility] [address] [place] [address] Dr. Kerrie Russell Hematocrit (Bld) [Volume fraction] 40.6 % Normal 36.0-48.0 [facility] Comment on above: Performed By: #### C BC #### [facility] [address] [place] [address] Dr. Kerrie Russell Hemoglobin (Bld) [Mass/Vol] 13.8 g/dL Normal 12.0-16.0 [facility] Comment on above: Performed By: #### C BC #### [facility] [address] [place] [address] Dr. Kerrie Russell IG # 0.02 10e3/ul Normal 0.00-0.03 [facility] Comment on above: Performed By: #### C BC #### [facility] [address] [place] [address] Dr. Kerrie Russell IG % 0.2 % Normal 0.0-0.5 [facility] Comment on above: Performed By: #### C BC #### [facility] [address] [place] [address] Dr. Kerrie Russell LYMPH # 4.3 103/ul Critically high 1.2-3.8 [facility] Comment on above: Performed By: #### C BC #### [facility] [address] [place] [address] Dr. Kerrie Russell Lymphocytes/100 WBC (Bld) 49.2 % Normal 20.5-60.0 [facility] Comment on above: Performed By: #### C BC #### [facility] [address] [place] [address] Dr. Kerrie Russell MANUAL DIFF REQ NO Normal [facility] Comment on above: Performed By: #### C BC #### [facility] [address] [place] [address] Dr. Kerrie Russell MCH (RBC) [Entitic mass] 28.3 pg Normal 26.7-34.0 [facility] Comment on above: Performed By: #### C BC #### [facility] [address] [place] [address] Dr. Kerrie Russell MCHC (RBC) [Mass/Vol] 34.0 g/dL Normal 29.9-35.2 [facility] Comment on above: Performed By: #### C BC #### [facility] [address] [place] [address] Dr. Kerrie Russell MCV (RBC) [Entitic vol] 83.2 fL Normal 81.0-99.0 [facility] Comment on above: Performed By: #### C BC #### [facility] [address] [place] [address] Dr. Kerrie Russell MONO # 0.5 103/ul Normal 0.3-0.8 [facility] Comment on above: Performed By: #### C BC #### [facility] [address] [address] [address] Kerrie Russell Monocytes/100 WBC (Bld) 5.9 % Normal 1.7-12.0 [facility] Comment on above: Performed By: #### C BC #### [facility] [address] [place] [address] Dr. Kerrie Russell NEUT # 3.7 103/ul Normal 1.4-6.5 [facility] Comment on above: Performed By: #### C BC #### [facility] [address] [place] [address] Dr. Kerrie Russell Neutrophils/100 WBC (Bld) 42.8 % Critically low 43.0-75.0 [facility] Comment on above: Performed By: #### C BC #### [facility] [address] [place] [address] Dr. Kerrie Russell Platelet mean volume (Bld) [Entitic vol] 9.6 fL Normal 9.5-13.5 [facility] Comment on above: Performed By: #### C BC #### [facility] [address] [place] [address] Dr. Kerrie Russell PLT 403 103/ul Normal 150-450 [facility] Comment on above: Performed By: #### C BC #### [facility] [address] [place] [address] Dr. Kerrie Russell RBC 4.88 106/ul Normal 4.20-5.40 [facility] Comment on above: Performed By: #### C BC #### [facility] [address] [place] [address] Dr. Kerrie Russell WBC 8.7 103/ul Normal 4.0-11.0 [facility] Comment on above: Performed By: #### C BC #### [facility] [address] [place] [address] Dr. Kerrie Russell FERRITINon 02-28-2022 Ferritin [Mass/Vol] 73.0 ng/mL Normal 6.2-137.0 [facility] Comment on above: Performed By: #### P HOS, MG, CMP #### [facility] [address] [place] [address] Dr. Kerrie Russell IRON AND TIBCon 02-28-2022 % SATURATION 12.4 % Normal [facility] Comment on above: Performed By: #### P HOS, MG, CMP #### [facility] [address] [place] [address] Dr. Kerrie Russell Iron [Mass/Vol] 44.0 ug/dL Critically low 50.0-170.0 [facility] Comment on above: Performed By: #### P HOS, MG, CMP #### [facility] [address] [place] [address] Dr. Kerrie Russell TIBC DIRECT 354.0 ug/dL Normal 250.0-450.0 [facility] Comment on above: Performed By: #### P HOS, MG, CMP #### [facility] [address] [place] [address] Dr. Kerrie Russell MAGNESIUMon 02-28-2022 Magnesium [Mass/Vol] 1.9 mg/dL Normal 1.8-2.4 [facility] Comment on above: Performed By: #### M G, PHOS, CMP #### [facility] [address] [place] [address] Dr. Kerrie Russell PHOSPHORUSon 02-28-2022 Phosphate [Mass/Vol] 3.7 mg/dL Normal 2.6-4.7 [facility] Comment on above: Performed By: #### M G, PHOS, CMP #### [facility] [address] [place] [address] Dr. Kerrie Russell PROF 14(COMP METB)on 022 Albumin [Mass/Vol] 3.9 g/dL Normal 3.4-5.0 [facility] Comment on above: Performed By: #### M G, PHOS, CMP #### [facility] [address] [place] [address] Dr. Kerrie Russell Albumin/Globulin [Mass ratio] 1.1 {ratio} Normal [facility] Comment on above: Performed By: #### M G, PHOS, CMP #### [facility] [address] [place] [address] Dr. Kerrie Russell ALP [Catalytic activity/Vol] 99 U/L Normal 46-116 [facility] Comment on above: Performed By: #### SUZANNE Cook, CMP #### [facility] [address] [place] [address] Dr. Kerrie Russell ALT [Catalytic activity/Vol] 32 U/L Normal 14-59 [facility] Comment on above: Performed By: #### NATHALY CookS, CMP #### [facility] [address] [place] [address] Dr. Kerrie Russell Anion gap [Moles/Vol] 9.3 mmol/L Normal [facility] Comment on above: Performed By: #### SUZANNE Cook, CMP #### [facility] [address] [place] [address] Dr. Kerrie Russell AST [Catalytic activity/Vol] 17 U/L Normal 15-37 [facility] Comment on above: Performed By: #### SUZANNE Cook, CMP #### [facility] [address] [place] [address] Dr. Kerrie Russell Bilirubin [Mass/Vol] 0.2 mg/dL Normal 0.2-1.0 [facility] Comment on above: Performed By: #### SUZANNE Cook, CMP #### [facility] [address] [place] [address] Dr. Kerrie Russell Calcium [Mass/Vol] 8.5 mg/dL Normal 8.5-10.1 [facility] Comment on above: Performed By: #### NATHALY CookS, CMP #### [facility] [address] [place] [address] Dr. Kerrie Russell Chloride [Moles/Vol] 107 mmol/L Normal 98-107 [facility] Comment on above: Performed By: #### SUZANNE Cook, CMP #### [facility] [address] [place] [address] Dr. Kerrie Russell CO2 [Moles/Vol] 27.0 mmol/L Normal 21.0-32.0 [facility] Comment on above: Performed By: #### M G, PHOS, CMP #### [facility] [address] [address] [address] Kerrie Russell Creatinine [Mass/Vol] 0.65 mg/dL Normal 0.55-1.02 [facility] Comment on above: Performed By: #### M Daisha, PHOS, CMP #### [facility] [address] [address] [address] Kerrie Russell EGFR-AF [place] >60 Normal >=60 [facility] Comment on above: Performed By: #### M Daisha, PHOS, CMP #### [facility] [address] [address] [address] Kerrie Russell EGFR-NON AF [place] >60 Normal >=60 [facility] Comment on above: Performed By: #### M Daisha, PHOS, CMP #### [facility] [address] [address] [address] Kerrie Russell Globulin (S) [Mass/Vol] 3.6 g/dL Normal [facility] Comment on above: Performed By: #### M Daisha PHOS, CMP #### [facility] [address] [address] [address] Kerrie Russell Glucose [Mass/Vol] 89 mg/dL Normal 74-106 [facility] Comment on above: Performed By: #### M Daisha PHOS, CMP #### [facility] [address] [address] [address] Kerrie Russell Potassium [Moles/Vol] 3.3 mmol/L Critically low 3.5-5.1 [facility] Comment on above: Performed By: #### M Daisha, PHOS, CMP #### [facility] [address] [address] [address] Kerrie Russell Protein [Mass/Vol] 7.5 g/dL Normal 6.4-8.2 [facility] Comment on above: Performed By: #### M Daisha, PHOS, CMP #### [facility] [address] [address] [address] Kerrie Russell Sodium [Moles/Vol] 140 mmol/L Normal 136-145 [facility] Comment on above: Performed By: #### M G PHOS, CMP #### [facility] [address] [address] [address] Kerrie Russell Urea nitrogen [Mass/Vol] 9.0 mg/dL Normal 7.0-18.0 [facility] Comment on above: Performed By: #### M G, PHOS, CMP #### [facility] [address] [address] [address] Kerrie Russell Urea nitrogen/Creatinine [Mass ratio] 13.8 mg/mg Normal [facility] Comment on above: Performed By: #### M Daisha PHOS, CMP #### [facility] [address] [address] [address] Kerrie Russell VIT B12 AND FOLATEon 022 Cobalamin (Vitamin B12) [Mass/Vol] 538.0 pg/mL Normal 193.0-986.0 [facility] Comment on above: Performed By: #### P HOS, MG, CMP #### [facility] [address] [place] [address] Dr. Kerrie Russell FOLATE 8.50 ng/mL Critically low 8.60-58.90 [facility] Comment on above: Performed By: #### P HOS, MG, CMP #### [facility] [address] [place] [address] Dr. Kerrie Russell VITAMIN D 25 OHon 02-28-2022 VIT D 25-OH 33.0 ng/mL Normal [facility] Comment on above: Performed By: #### P HOS, MG, CMP #### [facility] [address] [place] [address] Dr. Kerrie Russell VIT D RANGES SEE BELOW Normal [facility] Comment on above: Result Comment: <20 ng/mL Vit D deficient 20 - <30 ng/mL Vit D insufficient 30 - 100 ng/mL Vit D sufficient >100 ng/mL Potential Toxicity Performed By: #### P HOS, MG, CMP #### [facility] [address] [place] [address] Dr. Kerrie Russell Covid-19 PCR (CVDTBH)on SARS-CoV-2 (COVID-19) RNA DEZ+probe Ql (Unsp spec) Not detected Normal NOT DETECTED [facility] Comment on above: Result Comment: This test is not yet approved or cleared by the [place] FDA. When there are no FDA-approved or cleared tests available, and other criteria are met, FDA can make tests available under an emergency access mechanism called an Emergency Use Authorization (EUA). The EUA for this test is supported by the Outcome Analyst of Health and Human Service's (HHS's) declaration that circumstances exist to justify the emergency use of in vitro diagnostics for the detection and/or diagnosis of the virus that causes COVID-19. This EUA will remain in effect (meaning this test can be used) for the duration of the COVID-19 declaration justifying emergency of IVDs, unless it is terminated or revoked by FDA (after which the test may no longer be used). When diagnostic testing is negative, the possibility of a false negative should be considered in the context of a patient's recent exposures and the presence of clinical signs and symptoms consistent with SARS-CoV-2. Performed By: #### C VDTB #### [facility] [address] [place] [address] Dr. Kerrie Russell Covid-19 PCR ([facility])on SARS-CoV-2 (COVID-19) RNA DEZ+probe Ql (Unsp spec) Not detected Normal NOT DETECTED [facility] Comment on above: Result Comment: This test is not yet approved or cleared by the [place] FDA. When there are no FDA-approved or cleared tests available, and other criteria are met, FDA can make tests available under an emergency access mechanism called an Emergency Use Authorization (EUA). The EUA for this test is supported by the Welches of Health and Human Service's (HHS's) declaration that circumstances exist to justify the emergency use of in vitro diagnostics for the detection and/or diagnosis of the virus that causes COVID-19. This EUA will remain in effect (meaning this test can be used) for the duration of the COVID-19 declaration justifying emergency of IVDs, unless it is terminated or revoked by FDA (after which the test may no longer be used). When diagnostic testing is negative, the possibility of a false negative should be considered in the context of a patient's recent exposures and the presence of clinical signs and symptoms consistent with SARS-CoV-2. Performed By: #### P HOS, MG, CMP #### [facility] [address] [place] [address] Dr. Kerrie Russell VITAMIN B1 (THIAMINE)on 07-29 Vit. B1, Whole Blood 118.6 nmol/L Normal 66.5-200.0 [facility] Comment on above: Performed By: #### C VDTBH #### [facility] [address] [place] [address] Dr. Kerrie Russell CBC AUTO DIFFon 08-11-2021 BASO # 0.0 103/ul Normal 0.0-0.1 [facility] Comment on above: Performed By: #### P HOS, MG, CMP #### [facility] [address] [place] [address] Dr. Kerrie Russell Basophils/100 WBC (Bld) 0.3 % Normal 0.2-2.0 [facility] Comment on above: Performed By: #### P HOS, MG, CMP #### [facility] [address] [place] [address] Dr. Kerrie Russell EO # 0.1 103/ul Normal 0.0-0.7 [facility] Comment on above: Performed By: #### P HOS, MG, CMP #### [facility] [address] [place] [address] Dr. Kerrie Russell Eosinophils/100 WBC (Bld) 1.5 % Normal 0.9-7.0 [facility] Comment on above: Performed By: #### P HOS, MG, CMP #### [facility] [address] [place] [address] Dr. Kerrie Russell Erythrocyte distribution width (RBC) [Ratio] 15.9 % Critically high 11.0-15.0 [facility] Comment on above: Performed By: #### P HOS, MG, CMP #### [facility] [address] [place] [address] Dr. Kerrie Russell Hematocrit (Bld) [Volume fraction] 34.2 % Critically low 36.0-48.0 [facility] Comment on above: Performed By: #### P HOS, MG, CMP #### [facility] [address] [place] [address] Dr. Kerrie Russell Hemoglobin (Bld) [Mass/Vol] 10.1 g/dL Critically low 12.0-16.0 [facility] Comment on above: Performed By: #### P HOS, MG, CMP #### [facility] [address] [place] [address] Dr. Kerrie Russell IG # 0.03 10e3/ul Normal 0.00-0.03 [facility] Comment on above: Performed By: #### P HOS, MG, CMP #### [facility] [address] [place] [address] Dr. Kerrie Russell IG % 0.3 % Normal 0.0-0.5 [facility] Comment on above: Performed By: #### P HOS, MG, CMP #### [facility] [address] [place] [address] Dr. Kerrie Russell LYMPH # 3.3 103/ul Normal 1.2-3.8 [facility] Comment on above: Performed By: #### P HOS, MG, CMP #### [facility] [address] [place] [address] Dr. Kerrie Russell Lymphocytes/100 WBC (Bld) 37.2 % Normal 20.5-60.0 [facility] Comment on above: Performed By: #### P HOS, MG, CMP #### [facility] [address] [place] [address] Dr. Kerrie Russell MANUAL DIFF REQ NO Normal [facility] Comment on above: Performed By: #### P HOS, MG, CMP #### [facility] [address] [place] [address] Dr. Kerrie Russell MCH (RBC) [Entitic mass] 20.7 pg Critically low 26.7-34.0 [facility] Comment on above: Performed By: #### P HOS, MG, CMP #### [facility] [address] [place] [address] Dr. Kerrie Russell MCHC (RBC) [Mass/Vol] 29.5 g/dL Critically low 29.9-35.2 [facility] Comment on above: Performed By: #### P HOS, MG, CMP #### [facility] [address] [place] [address] Dr. Kerrie Russell MCV (RBC) [Entitic vol] 70.1 fL Critically low 81.0-99.0 [facility] Comment on above: Performed By: #### P HOS, MG, CMP #### [facility] [address] [place] [address] Dr. Kerrie Russell MONO # 0.6 103/ul Normal 0.3-0.8 [facility] Comment on above: Performed By: #### P HOS, MG, CMP #### [facility] [address] [place] [address] Dr. Kerrie Russell Monocytes/100 WBC (Bld) 7.3 % Normal 1.7-12.0 [facility] Comment on above: Performed By: #### P HOS, MG, CMP #### [facility] [address] [place] [address] Dr. Kerrie Russell NEUT # 4.7 103/ul Normal 1.4-6.5 [facility] Comment on above: Performed By: #### P HOS, MG, CMP #### [facility] [address] [place] [address] Dr. Kerrie Russell Neutrophils/100 WBC (Bld) 53.4 % Normal 43.0-75.0 [facility] Comment on above: Performed By: #### P HOS, MG, CMP #### [facility] [address] [place] [address] Dr. Kerrie Russell Platelet mean volume (Bld) [Entitic vol] 9.1 fL Critically low 9.5-13.5 [facility] Comment on above: Performed By: #### P HOS, MG, CMP #### [facility] [address] [place] [address] Dr. Kerrie Russell PLT 339 103/ul Normal 150-450 [facility] Comment on above: Performed By: #### P HOS, MG, CMP #### [facility] [address] [place] [address] Dr. Kerrie Russell RBC 4.88 106/ul Normal 4.20-5.40 [facility] Comment on above: Performed By: #### P HOS, MG, CMP #### [facility] [address] [place] [address] Dr. Kerrie Russell WBC 8.8 103/ul Normal 4.0-11.0 [facility] Comment on above: Performed By: #### P HOS, MG, CMP #### [facility] [address] [place] [address] Dr. Kerrie Russell FERRITINon 08-11-2021 Ferritin [Mass/Vol] 4.0 ng/mL Critically low 6.2-137.0 [facility] Comment on above: Performed By: #### C VDTBH #### [facility] [address] [place] [address] Dr. Kerrie Russell IRON AND TIBCon 08-11-2021 % SATURATION 3.7 % Normal [facility] Comment on above: Performed By: #### C VDTBH #### [facility] [address] [place] [address] Dr. Kerrie Russell Iron [Mass/Vol] 19.0 ug/dL Critically low 37.0-170.0 [facility] Comment on above: Performed By: #### C VDTBH #### [facility] [address] [place] [address] Dr. Kerrie Russell TIBC DIRECT 513.0 ug/dL Critically high 261.0-497.0 [facility] Comment on above: Performed By: #### C VDTBH #### [facility] [address] [place] [address] Dr. Kerrie Russell MAGNESIUMon 08-11-2021 Magnesium [Mass/Vol] 2.0 mg/dL Normal 1.6-2.3 [facility] Comment on above: Performed By: #### P HOS, MG, CMP #### [facility] [address] [place] [address] Dr. Kerrie Russell PHOSPHORUSon 08-11-2021 Phosphate [Mass/Vol] 4.8 mg/dL Critically high 2.5-4.5 [facility] Comment on above: Performed By: #### P HOS, MG, CMP #### [facility] [address] [address] [address] Kerrie Russell PROF 14(COMP METB)on 022 Albumin [Mass/Vol] 3.8 g/dL Normal 3.4-5.0 [facility] Comment on above: Performed By: #### P HOS, MG, CMP #### [facility] [address] [address] [address] Kerrie Russell Albumin/Globulin [Mass ratio] 0.9 {ratio} Normal [facility] Comment on above: Performed By: #### P HOS, MG, CMP #### [facility] [address] [address] [address] Kerrie Russell ALP [Catalytic activity/Vol] 74 U/L Normal 46-116 [facility] Comment on above: Performed By: #### P HOS, MG, CMP #### [facility] [address] [address] [address] Kerrie Russell ALT [Catalytic activity/Vol] 15 U/L Normal 14-59 [facility] Comment on above: Performed By: #### P HOS, MG, CMP #### [facility] [address] [address] [address] Kerrie Russell Anion gap [Moles/Vol] 13.3 mmol/L Normal [facility] Comment on above: Performed By: #### P HOS, MG, CMP #### [facility] [address] [address] [address] Kerrie Russell AST [Catalytic activity/Vol] 11 U/L Critically low 15-37 [facility] Comment on above: Performed By: #### P HOS, MG, CMP #### [facility] [address] [address] [address] Kerrie Russell Bilirubin [Mass/Vol] 0.2 mg/dL Normal 0.2-1.3 [facility] Comment on above: Performed By: #### P HOS, MG, CMP #### [facility] [address] [address] [address] Kerrie Russell Calcium [Mass/Vol] 8.3 mg/dL Critically low 8.5-10.1 [facility] Comment on above: Performed By: #### P HOS, MG, CMP #### [facility] [address] [address] [address] Kerrie Russell Chloride [Moles/Vol] 104 mmol/L Normal 98-107 [facility] Comment on above: Performed By: #### P HOS, MG, CMP #### [facility] [address] [place] [address] Dr. Kerrie Russell CO2 [Moles/Vol] 26.5 mmol/L Normal 22.0-30.0 [facility] Comment on above: Performed By: #### P HOS, MG, CMP #### [facility] [address] [place] [address] Dr. Krerie Russell Creatinine [Mass/Vol] 0.60 mg/dL Normal 0.52-1.04 [facility] Comment on above: Performed By: #### P HOS, MG, CMP #### [facility] [address] [place] [address] Dr. Kerrie Russell EGFR-AF [place] >60 Normal >=60 [facility] Comment on above: Performed By: #### P HOS, MG, CMP #### [facility] [address] [place] [address] Dr. Kerrie Russell EGFR-NON AF [place] >60 Normal >=60 [facility] Comment on above: Performed By: #### P HOS, MG, CMP #### [facility] [address] [place] [address] Dr. Kerrie Russell Globulin (S) [Mass/Vol] 4.1 g/dL Normal [facility] Comment on above: Performed By: #### P HOS, MG, CMP #### [facility] [address] [place] [address] Dr. Kerrie Russell Glucose [Mass/Vol] 93 mg/dL Normal 74-106 [facility] Comment on above: Performed By: #### P HOS, MG, CMP #### [facility] [address] [place] [address] Dr. Kerrie Russell Potassium [Moles/Vol] 3.8 mmol/L Normal 3.4-5.0 [facility] Comment on above: Performed By: #### P HOS, MG, CMP #### [facility] [address] [place] [address] Dr. Kerrie Russell Protein [Mass/Vol] 7.9 g/dL Normal 6.1-8.2 [facility] Comment on above: Performed By: #### P HOS, MG, CMP #### [facility] [address] [place] [address] Dr. Kerrie Russell Sodium [Moles/Vol] 140 mmol/L Normal 137-145 [facility] Comment on above: Performed By: #### P HOS, MG, CMP #### [facility] [address] [place] [address] Dr. Kerrie Russell Urea nitrogen [Mass/Vol] 14.0 mg/dL Normal 7.0-18.0 [facility] Comment on above: Performed By: #### P HOS, MG, CMP #### [facility] [address] [place] [address] Dr. Kerrie Russell Urea nitrogen/Creatinine [Mass ratio] 23.3 mg/mg Normal [facility] Comment on above: Performed By: #### P HOS, MG, CMP #### [facility] [address] [place] [address] Dr. Kerrie Russell VIT B12 AND FOLATEon 022 Cobalamin (Vitamin B12) [Mass/Vol] 546.0 pg/mL Normal 239.0-931.0 [facility] Comment on above: Performed By: #### C VDTBH #### [facility] [address] [place] [address] Dr. Kerrie Russell FOLATE 17.80 ng/mL Normal >=2.76 [facility] Comment on above: Performed By: #### C VDTBH #### [facility] [address] [address] [address] Kerrie Russell VITAMIN D 25 OHon 08-11-2021 VIT D 25-OH 35.1 ng/mL Normal [facility] Comment on above: Performed By: #### C VDTBH #### [facility] [address] [address] [address] Kerrie Russell VIT D RANGES SEE BELOW Normal [facility] Comment on above: Result Comment: <20 ng/mL Vit D deficient 20 - <30 ng/mL Vit D insufficient 30 - 100 ng/mL Vit D sufficient >100 ng/mL Potential Toxicity Performed By: #### C VDTBH #### [facility] [address] [address] [address] Kerrie Russell XR KUB 1 VIEWon 08-11-2021 XR KUB 1 VIEW EXAMINATION: XR KUB 1 VIEW HISTORY: Kidney stone ; acute bilateral flank pain, history of kidney stones COMPARISON: XR KUB 02/15/2021 FINDINGS: KIDNEY/URETER - RIGHT: 2 mm calcification projecting over superior pole of right kidney. No visible ureteral stones. KIDNEY/URETER - LEFT: No visible renal or ureteral calcifications. PELVIS: No visible ureteral stones. BOWEL: No abnormal dilation or deviation. BONES: No acute abnormality. OTHER: Negative. No abnormal gaseous collections. IMPRESSION: 1. Right nephrolithiasis. 2. No appreciable ureteral stones or acute findings. Electronically authenticated by: MELLISSA SEGAL Date: 2021-08-11 09:44 Normal [facility] Complete Blood Count with Au to Diffon 07-12-2021 Basophils (Bld) [#/Vol] 0.01 10*3/uL Normal 0.00-0.20 [facility] Comment on above: Performed By: #### F ERR, CBCAD, FE Prof, smear, CMP #### [facility] [address] [place] [id number] Basophils/100 WBC (Bld) 0.2 % Normal [facility] Comment on above: Performed By: #### F ERR, CBCAD, FE Prof, smear, CMP #### [facility] [address], [place] [id number] Eosinophils (Bld) [#/Vol] 0.14 10*3/uL Normal 0.02-0.50 [facility] Special[facility] Comment on above: Performed By: #### F ERR, CBCAD, FE Prof, smear, CMP #### [facility] [address], [place] [id number] Eosinophils/100 WBC (Bld) 2.8 % Normal [facility] Special[facility] Comment on above: Performed By: #### F ERR, CBCAD, FE Prof, smear, CMP #### [facility] [address], [place] [id number] Erythrocyte distribution width (RBC) [Ratio] 17.0 % High 11.0-15.0 [facility] Special[facility] Comment on above: Performed By: #### F ERR, CBCAD, FE Prof, smear, CMP #### [facility] [address], [place] [id number] Hematocrit (Bld) [Volume fraction] 34.8 % Low 35.0-47.0 [facility] Comment on above: Performed By: #### F ERR, CBCAD, FE Prof, smear, CMP #### [facility] [address] [place], [place] [id number] Hemoglobin (Bld) [Mass/Vol] 9.8 g/dL Low 11.6-15.5 [facility] Comment on above: Performed By: #### F ERR, CBCAD, FE Prof, smear, CMP #### [facility] [address], [place] [id number] Lymphocytes (Bld) [#/Vol] 2.1 10*3/uL Normal 0.9-3.9 [facility] Specialist Comment on above: Performed By: #### F ERR, CBCAD, FE Prof, smear, CMP #### [facility] [address], [place] [id number] Lymphocytes/100 WBC (Bld) 42.3 % Normal [facility] Specialist Comment on above: Performed By: #### F ERR, CBCAD, FE Prof, smear, CMP #### [facility] [address], [place] [id number] MCH (RBC) [Entitic mass] 20.3 pg Low 27.0-33.0 [facility] Manager Branch Comment on above: Performed By: #### F ERR, CBCAD, FE Prof, smear, CMP #### [facility] [address], [place] [id number] MCHC (RBC) [Mass/Vol] 28.2 g/dL Low 32.0-36.0 [facility] Specialist Comment on above: Performed By: #### F ERR, CBCAD, FE Prof, smear, CMP #### [facility] [address], [place] [id number] MCV (RBC) [Entitic vol] 72 fL Low 80-100 [facility] Specialist Comment on above: Performed By: #### F ERR, CBCAD, FE Prof, smear, CMP #### [facility] [address], [place] [id number] Monocytes (Bld) [#/Vol] 0.6 10*3/uL Normal 0.2-0.9 [facility] Specialist Comment on above: Performed By: #### F ERR, CBCAD, FE Prof, smear, CMP #### [facility] [address], [place] [id number] Monocytes/100 WBC (Bld) 11.4 % Normal [facility] Specialist Comment on above: Performed By: #### F ERR, CBCAD, FE Prof, smear, CMP #### [facility] [address], [place] [id number] Neutrophils (Bld) [#/Vol] 2.1 10*3/uL Normal 1.5-7.8 [facility] Specialist Comment on above: Performed By: #### F ERR, CBCAD, FE Prof, smear, CMP #### [facility] [address], [place] [id number] Neutrophils/100 WBC (Bld) 42.9 % Normal [facility] Specialist Comment on above: Performed By: #### F ERR, CBCAD, FE Prof, smear, CMP #### [facility] [address], [place] [id number] Platelet mean volume (Bld) [Entitic vol] 10.10 fL Normal 7.50-12.50 [facility] Specialist Comment on above: Performed By: #### F ERR, CBCAD, FE Prof, smear, CMP #### [facility] [address], [place] [id number] Platelets (Bld) [#/Vol] 368 10*3/uL Normal 140-400 [facility] Specialist Comment on above: Performed By: #### F ERR, CBCAD, FE Prof, smear, CMP #### [facility] [address], [place] [id number] RBC (Bld) [#/Vol] 4.82 10*6/uL Normal 3.90-5.20 [facility] Specialist Comment on above: Performed By: #### F ERR, CBCAD, FE Prof, smear, CMP #### [facility] [address], [place] [id number] RDW-SD 43.4 fL Normal 37.0-50.0 [facility] Specialist Comment on above: Performed By: #### F ERR, CBCAD, FE Prof, smear, CMP #### [facility] [address], [place] [id number] REFLEX Smear Review Normal [facility] Comment on above: Performed By: #### F ERR, CBCAD, FE Prof, smear, CMP #### [facility] [address], [place] [id number] WBC (Bld) [#/Vol] 4.9 10*3/uL Normal 3.8-11.0 [facility] Manager Branch Comment on above: Performed By: #### F ERR, CBCAD, FE Prof, smear, CMP #### [facility] [address], [place] [id number] [facility] 07-12-2021 Albumin [Mass/Vol] 4.5 g/dL Normal 3.6-5.1 [facility] Manager Branch Comment on above: Performed By: #### F ERR, CBCAD, FE Prof, smear, CMP #### [facility] [address], [place] [id number] Albumin/Globulin [Mass ratio] 1.7 {ratio} Normal 1.0-2.5 [facility] Specialist Comment on above: Performed By: #### F ERR, CBCAD, FE Prof, smear, CMP #### [facility] [address], [place] [id number] ALP [Catalytic activity/Vol] 80 U/L Normal 35-119 [facility] Comment on above: Performed By: #### F ERR, CBCAD, FE Prof, smear, CMP #### [facility] [address], [place] [id number] ALT [Catalytic activity/Vol] 12 U/L Normal 6-33 [facility] Comment on above: Result Comment: 03/29 Female reference range changed. Performed By: #### F ERR, CBCAD, FE Prof, smear, CMP #### [facility] [address], [place] [id number] Anion gap [Moles/Vol] 18 mmol/L Normal 12-20 [facility] Specialist Comment on above: Result Comment: Effe ctive 05/04/2019 reference range changed. Performed By: #### F ERR, CBCAD, FE Prof, smear, CMP #### [facility] [address], [place] [id number] AST [Catalytic activity/Vol] 20 U/L Normal 9-34 [facility] Specialist Comment on above: Performed By: #### F ERR, CBCAD, FE Prof, smear, CMP #### [facility] [address], [place] [id number] BUN/CREA 19 Ratio Normal 6-22 [facility] Comment on above: Performed By: #### F ERR, CBCAD, FE Prof, smear, CMP #### [facility] [address], [place] [id number] Calcium [Mass/Vol] 8.8 mg/dL Normal 8.6-10.2 [facility] Comment on above: Performed By: #### F ERR, CBCAD, FE Prof, smear, CMP #### [facility] [address] [facility] [place] [id number] Chloride [Moles/Vol] 104 mmol/L Normal 98-107 [facility] Comment on above: Performed By: #### F ERR, CBCAD, FE Prof, smear, CMP #### [facility] [address] [facility] [place] [id number] CO2 [Moles/Vol] 22 mmol/L Normal 20-31 [facility] Comment on above: Performed By: #### F ERR, CBCAD, FE Prof, smear, CMP #### [facility] [address], [place] [id number] Creatinine [Mass/Vol] 0.6 mg/dL Normal 0.6-1.4 [facility] Specialist Comment on above: Performed By: #### F ERR, CBCAD, FE Prof, smear, CMP #### [facility] [address], [place] [id number] eGFRAA 155 mL/min/1.73m2 Normal >60 [facility] Specialist Comment on above: Performed By: #### F ERR, CBCAD, FE Prof, smear, CMP #### [facility] [address], [place] [id number] eGFRNAA 128 mL/min/1.73m2 Normal >60 [facility] Specialist Comment on above: Performed By: #### F ERR, CBCAD, FE Prof, smear, CMP #### [facility] [address], [place] [id number] Globulin (S) [Mass/Vol] 2.6 g/dL Normal 1.9-3.7 [facility] Specialist Comment on above: Performed By: #### F ERR, CBCAD, FE Prof, smear, CMP #### [facility] [address], [place] [id number] Glucose [Mass/Vol] 80 mg/dL Normal 65-99 [facility] Manager Branch Comment on above: Result Comment: For FASTING Glucose --- ADA reference ranges: Normal 65-99 mg/dl Prediabetes 100-125 Diabetes >/= 126 Performed By: #### F ERR, CBCAD, FE Prof, smear, CMP #### [facility] [address], [place] [id number] Potassium [Moles/Vol] 4.2 mmol/L Normal 3.5-5.5 [facility] Manager Branch Comment on above: Performed By: #### F ERR, CBCAD, FE Prof, smear, CMP #### [facility] [address], [place] [id number] Protein [Mass/Vol] 7.1 g/dL Normal 6.1-8.1 [facility] Manager Branch Comment on above: Performed By: #### F ERR, CBCAD, FE Prof, smear, CMP #### [facility] [address], [place] [id number] Sodium [Moles/Vol] 139 mmol/L Normal 135-146 [facility] Comment on above: Performed By: #### F ERR, CBCAD, FE Prof, smear, CMP #### [facility] [address], [place] [id number] TBIL <0.3 Normal [facility] Comment on above: Performed By: #### F ERR, CBCAD, FE Prof, smear, CMP #### [facility] [address], [place] [id number] Urea nitrogen [Mass/Vol] 11 mg/dL Normal 7-25 [facility] Comment on above: Performed By: #### F ERR, CBCAD, FE Prof, smear, CMP #### [facility] [address], [place] [id number] Ferritinon 07-12-2021 FERR 12.1 ng/mL Low 15.0-150.0 [facility] Comment on above: Performed By: #### F ERR, CBCAD, FE Prof, smear, CMP #### [facility] [address], [place] [id number] Iron Profileon 07-12-2021 %FESAT 6 % Low 11-50 [facility] Comment on above: Performed By: #### F ERR, CBCAD, FE Prof, smear, CMP #### [facility] [address], [place] [id number] FE 25 ug/dL Low 40-190 [facility] Specialist Comment on above: Result Comment: Refe rence range change 03/15/2017. Prior reference range F 37-145 ug/dL, M 59-158 ug/dL. Performed By: #### F ERR, CBCAD, FE Prof, smear, CMP #### [facility] [address], [place] [id number] TIBC 441 ug/dL Normal 250-450 [facility] Comment on above: Performed By: #### F ERR, CBCAD, FE Prof, smear, CMP #### [facility] [address], [place] [id number] UIBC 416 ug/dL High 112-347 [facility] Specialist Comment on above: Performed By: #### F ERR, CBCAD, FE Prof, smear, CMP #### [facility] [address], [place] [id number] Smear Reviewon 07-12-2021 PLT EST Adequate Normal [facility] Comment on above: Performed By: #### F ERR, CBCAD, FE Prof, smear, CMP #### [facility] [address], [place] [id number] RBC morphology finding Nom (Bld) RBC morphology review confirms RBC indices Normal [facility] Comment on above: Performed By: #### F ERR, CBCAD, FE Prof, smear, CMP #### [facility] [address], [place] [id number] CBC AUTO DIFFon 05-13-2021 BASO # 0.0 103/ul Normal 0.0-0.1 [facility] Comment on above: Performed By: #### C BC #### [facility] [address] [address] [address] Kerrie Russell Basophils/100 WBC (Bld) 0.1 % Critically low 0.2-2.0 [facility] Comment on above: Performed By: #### C BC #### [facility] [address] [address] [address] Kerrie Russell EO # 0.0 103/ul Normal 0.0-0.7 [facility] Comment on above: Performed By: #### C BC #### [facility] [address] [address] [address] Kerrie Russell Eosinophils/100 WBC (Bld) 0.0 % Critically low 0.9-7.0 [facility] Comment on above: Performed By: #### C BC #### [facility] [address] [address] [address] Kerrie Russell Erythrocyte distribution width (RBC) [Ratio] 15.0 % Normal 11.0-15.0 [facility] Comment on above: Performed By: #### C BC #### [facility] [address] [address] [address] Kerrie Russell Hematocrit (Bld) [Volume fraction] 25.2 % Critically low 36.0-48.0 [facility] Comment on above: Performed By: #### C BC #### [facility] [address] [place] [address] Dr. Kerrie Russell Hemoglobin (Bld) [Mass/Vol] 7.6 g/dL Critically low 12.0-16.0 [facility] Comment on above: Result Comment: Post delivery Performed By: #### C BC #### [facility] [address] [place] [address] Dr. Kerrie Russell IG # 0.08 10e3/ul Critically high 0.00-0.03 [facility] Comment on above: Performed By: #### C BC #### [facility] [address] [place] [address] Dr. Kerrie Russell IG % 1.0 % Critically high 0.0-0.5 [facility] Comment on above: Performed By: #### C BC #### [facility] [address] [place] [address] Dr. Kerrie Russell LYMPH # 2.2 103/ul Normal 1.2-3.8 [facility] Comment on above: Performed By: #### C BC #### [facility] [address] [place] [address] Dr. Kerrie Russell Lymphocytes/100 WBC (Bld) 26.5 % Normal 20.5-60.0 [facility] Comment on above: Performed By: #### C BC #### [facility] [address] [place] [address] Dr. Kerrie Russell MANUAL DIFF REQ NO Normal [facility] Comment on above: Performed By: #### C BC #### [facility] [address] [place] [address] Dr. Kerrie Russell MCH (RBC) [Entitic mass] 21.7 pg Critically low 26.7-34.0 [facility] Comment on above: Performed By: #### C BC #### [facility] [address] [place] [address] Dr. Kerrie Russell MCHC (RBC) [Mass/Vol] 30.2 g/dL Normal 29.9-35.2 [facility] Comment on above: Performed By: #### C BC #### [facility] [address] [address] [address] Kerrie Russell MCV (RBC) [Entitic vol] 72.0 fL Critically low 81.0-99.0 [facility] Comment on above: Performed By: #### C BC #### [facility] [address] [place] [address] Dr. Kerrie Russell MONO # 0.7 103/ul Normal 0.3-0.8 [facility] Comment on above: Performed By: #### C BC #### [facility] [address] [place] [address] Dr. Kerrie Russell Monocytes/100 WBC (Bld) 9.1 % Normal 1.7-12.0 [facility] Comment on above: Performed By: #### C BC #### [facility] [address] [place] [address] Dr. Kerrie Russell NEUT # 5.1 103/ul Normal 1.4-6.5 [facility] Comment on above: Performed By: #### C BC #### [facility] [address] [place] [address] Dr. Kerrie Russell Neutrophils/100 WBC (Bld) 63.3 % Normal 43.0-75.0 [facility] Comment on above: Performed By: #### C BC #### [facility] [address] [place] [address] Dr. Kerrie Russell Platelet mean volume (Bld) [Entitic vol] 10.1 fL Normal 9.5-13.5 [facility] Comment on above: Performed By: #### C BC #### [facility] [address] [place] [address] Dr. Kerrie Russell PLT 181 103/ul Normal 150-450 [facility] Comment on above: Performed By: #### C BC #### [facility] [address] [place] [address] Dr. Kerrie Russell RBC 3.50 106/ul Critically low 4.20-5.40 [facility] Comment on above: Performed By: #### C BC #### [facility] [address] [place] [address] Dr. Kerrie Russell WBC 8.1 103/ul Normal 4.0-11.0 [facility] Comment on above: Performed By: #### C BC #### [facility] [address] [place] [address] Dr. Kerrie Russell CBC AUTO DIFFon 05-11-2021 BASO # 0.0 103/ul Normal 0.0-0.1 [facility] Comment on above: Performed By: #### C VDTBH #### [facility] [address] [place] [address] Dr. Kerrie Russell Basophils/100 WBC (Bld) 0.4 % Normal 0.2-2.0 [facility] Comment on above: Performed By: #### C VDTBH #### [facility] [address] [place] [address] Dr. Kerrie Russell EO # 0.0 103/ul Normal 0.0-0.7 [facility] Comment on above: Performed By: #### C VDTBH #### [facility] [address] [place] [address] Dr. Kerrie Russell Eosinophils/100 WBC (Bld) 0.3 % Critically low 0.9-7.0 [facility] Comment on above: Performed By: #### C VDTBH #### [facility] [address] [place] [address] Dr. Kerrie Russell Erythrocyte distribution width (RBC) [Ratio] 14.8 % Normal 11.0-15.0 [facility] Comment on above: Performed By: #### C VDTBH #### [facility] [address] [place] [address] Dr. Kerrie Russell Hematocrit (Bld) [Volume fraction] 31.2 % Critically low 36.0-48.0 [facility] Comment on above: Performed By: #### C VDTBH #### [facility] [address] [place] [address] Dr. Kerrie Russell Hemoglobin (Bld) [Mass/Vol] 9.6 g/dL Critically low 12.0-16.0 [facility] Comment on above: Performed By: #### C VDTBH #### [facility] [address] [place] [address] Dr. Kerrie Russell IG # 0.07 10e3/ul Critically high 0.00-0.03 [facility] Comment on above: Performed By: #### C VDTBH #### [facility] [address] [place] [address] Dr. Kerrie Russell IG % 1.0 % Critically high 0.0-0.5 [facility] Comment on above: Performed By: #### C VDTBH #### [facility] [address] [place] [address] Dr. Kerrie Russell LYMPH # 1.5 103/ul Normal 1.2-3.8 [facility] Comment on above: Performed By: #### C VDTBH #### [facility] [address] [place] [address] Dr. Kerrie Russell Lymphocytes/100 WBC (Bld) 21.7 % Normal 20.5-60.0 [facility] Comment on above: Performed By: #### C VDTBH #### [facility] [address] [place] [address] Dr. Kerrie Russell MANUAL DIFF REQ NO Normal [facility] Comment on above: Performed By: #### C VDTBH #### [facility] [address] [place] [address] Dr. Kerrie Russell MCH (RBC) [Entitic mass] 21.8 pg Critically low 26.7-34.0 [facility] Comment on above: Performed By: #### C VDTBH #### [facility] [address] [place] [address] Dr. Kerrie Russell MCHC (RBC) [Mass/Vol] 30.8 g/dL Normal 29.9-35.2 [facility] Comment on above: Performed By: #### C VDTBH #### [facility] [address] [place] [address] Dr. Kerrie Russell MCV (RBC) [Entitic vol] 70.7 fL Critically low 81.0-99.0 [facility] Comment on above: Performed By: #### C VDTBH #### [facility] [address] [place] [address] Dr. Kerrie Russell MONO # 0.7 103/ul Normal 0.3-0.8 [facility] Comment on above: Performed By: #### C VDTBH #### [facility] [address] [place] [address] Dr. Kerrie Russell Monocytes/100 WBC (Bld) 9.7 % Normal 1.7-12.0 [facility] Comment on above: Performed By: #### C VDTBH #### [facility] [address] [place] [address] Dr. Kerrie Russell NEUT # 4.7 103/ul Normal 1.4-6.5 [facility] Comment on above: Performed By: #### C VDTB #### [facility] [address] [place] [address] Dr. Kerrie Russell Neutrophils/100 WBC (Bld) 66.9 % Normal 43.0-75.0 [facility] Comment on above: Performed By: #### C VDTB #### [facility] [address] [place] [address] Dr. Kerrie Russell Platelet mean volume (Bld) [Entitic vol] 10.0 fL Normal 9.5-13.5 [facility] Comment on above: Performed By: #### C VDTBH #### [facility] [address] [place] [address] Dr. Kerrie Russell PLT 272 103/ul Normal 150-450 [facility] Comment on above: Performed By: #### C VDTBH #### [facility] [address] [place] [address] Dr. Kerrie Russell RBC 4.41 106/ul Normal 4.20-5.40 [facility] Comment on above: Performed By: #### C VDTBH #### [facility] [address] [place] [address] Dr. Kerrie Russell WBC 7.0 103/ul Normal 4.0-11.0 [facility] Comment on above: Performed By: #### C VDTBH #### [facility] [address] [place] [address] Dr. Kerrie Russell Covid-19 PCR ([facility])on 04-29 SARS-CoV-2 (COVID-19) RNA DEZ+probe Ql (Unsp spec) Detected Critically abnormal NOT DETECTED [facility] Comment on above: Result Comment: This test is not yet approved or cleared by the [place] FDA. When there are no FDA-approved or cleared tests available, and other criteria are met, FDA can make tests available under an emergency access mechanism called an Emergency Use Authorization (EUA). The EUA for this test is supported by the Outcome Analyst of Health and Human Service's declaration that circumstances exist to justify the emergency use of in vitro diagnostics for the detection and/or diagnosis of the virus that causes COVID-19. This EUA will remain in effect for the duration of the COVID-19 declaration justifying emergency of IVDs, unless it is terminated or revoked by the FDA (after which the test may no longer be used). Performed By: #### C VDTBH #### [facility] [address] [place] [address] Dr. Kerrie Russell DRUG SCREEN RAPID (URINE)on 05-11-2021 AMP Negative Normal NEGATIVE [facility] Comment on above: Performed By: #### C VDTBH #### [facility] [address] [place] [address] Dr. Kerrie Russell BAR Negative Normal NEGATIVE [facility] Comment on above: Performed By: #### C VDTBH #### [facility] [address] [place] [address] Dr. Kerrie Russell BUP Negative Normal NEGATIVE [facility] Comment on above: Performed By: #### C VDTBH #### [facility] [address] [place] [address] Dr. Kerrie Russell BZO Negative Normal NEGATIVE [facility] Comment on above: Performed By: #### C VDTBH #### [facility] [address] [place] [address] Dr. Kerrie Russell ESTRELLA Negative Normal NEGATIVE [facility] Comment on above: Performed By: #### C VDTBH #### [facility] [address] [place] [address] Dr. Kerrie Russell CUT-OFFS SEE BELOW Normal [facility] Comment on above: Result Comment: AMP (Amphetamine): 500ng/mL, BAR (Barbituates): 200 ng/mL, BZO (Benzodiazepines): 150 ng/mL, BUP (Buprenorphine): 10 ng/mL, ESTRELLA (Cocaine): 150 ng/mL, mAMP (Methamphetamine): 500 ng/mL, MTD (Methadone): 200 ng/mL, OPI (Opiates): 100 ng/mL, OXY (Oxycodone): 100 ng/mL, PCP (Phencyclidine): 25 ng/mL, PPX (Propoxyphene): 300 ng/mL, THC (Cannabinoids): 50 ng/mL, TCA (Trycyclic Antidepressants): 300 ng/mL Performed By: #### C VDTBH #### [facility] [address] [place] [address] Dr. Kerrie Russell DRUG CUT HEADER DRUG CLASS TEST SYSTEM CUT-OFF CONCENTRATIONS ARE FOLLOWS: Normal [facility] Comment on above: Performed By: #### C VDTBH #### [facility] [address] [place] [address] Dr. Kerrie Russell mAMP Negative Normal NEGATIVE [facility] Comment on above: Performed By: #### C VDTBH #### [facility] [address] [place] [address] Dr. Kerrie Russell MTD Negative Normal NEGATIVE [facility] Comment on above: Performed By: #### C VDTBH #### [facility] [address] [place] [address] Dr. Kerrie Russell OPI Negative Normal NEGATIVE [facility] Comment on above: Performed By: #### C VDTBH #### [facility] [address] [place] [address] Dr. Kerrie Russell OXY Negative Normal NEGATIVE [facility] Comment on above: Performed By: #### C VDTBH #### [facility] [address] [address] [address] Kerrie Russell PCP Negative Normal NEGATIVE [facility] Comment on above: Performed By: #### C VDTBH #### [facility] [address] [place] [address] Dr. Kerrie Russell PPX Negative Normal NEGATIVE [facility] Comment on above: Performed By: #### C VDTBH #### [facility] [address] [place] [address] Dr. Kerrie Russell TCA Negative Normal NEGATIVE [facility] Comment on above: Performed By: #### C VDTBH #### [facility] [address] [address] [address] Kerrie Russell THC Negative Normal NEGATIVE [facility] Comment on above: Performed By: #### C VDTBH #### [facility] [address] [place] [address] Dr. Kerrie Russell TYPE AND SCREENon 05-11-2021 TYPE AND SCREEN Negative Normal [facility] Comment on above: Performed By: #### P HOS, MG, CMP #### [facility] [address] [place] [address] Dr. Kerrie Russell Complete Blood Count Auto Di ffon 07-25-2020 Basophils (Bld) [#/Vol] 0.1 10*3/uL Normal 0.0-0.2 [facility] Comment on above: Result Comment: PERF ORMED BY: [facility] [address] [place] [address] PATHOLOGIST AERONAUTICAL ENGINEERING TECHNOLOGIST TOLU MANUEL M.D. Performed By: #### F E PRO, [id number], CMP, MG, [id number], PHOS, CBC #### [facility] [address] [place] [address] [place] #### VITB1 #### [facility] , Basophils/100 WBC (Bld) 0.7 % Normal . [facility] Comment on above: Performed By: #### F E PRO, [id number], CMP, MG, [id number], PHOS, CBC #### [address] #### VITB1 #### [facility] , Eosinophils (Bld) [#/Vol] 0.1 10*3/uL Normal 0.0-0.45 [facility] Comment on above: Performed By: #### F E PRO, [id number], CMP, MG, [id number], PHOS, CBC #### [address] #### VITB1 #### [facility] , Eosinophils/100 WBC (Bld) 1.6 % Normal . [facility] Comment on above: Performed By: #### F E PRO, [id number], CMP, MG, [id number], PHOS, CBC #### [address] #### VITB1 #### [facility] , Erythrocyte distribution width (RBC) [Ratio] 13.0 % Normal 11.9-15.3 [facility] Comment on above: Performed By: #### F E PRO, [id number], CMP, MG, [id number], PHOS, CBC #### [address] #### VITB1 #### [facility] , Hematocrit (Bld) [Volume fraction] 38.3 % Normal 34.0-46.4 [facility] Comment on above: Performed By: #### F E PRO, [id number], CMP, MG, [id number], PHOS, CBC #### [address] #### VITB1 #### [facility] , Hemoglobin (Bld) [Mass/Vol] 12.9 g/dL Normal 11.8-15.4 [facility] Comment on above: Performed By: #### F E PRO, [id number], CMP, MG, [id number], PHOS, CBC #### [facility] [address] [place] [address] #### VITB1 #### [facility] , Lymphocytes (Bld) [#/Vol] 4.6 10*3/uL Normal 1.00-4.8 [facility] Comment on above: Performed By: #### F E PRO, [id number], CMP, MG, [id number], PHOS, CBC #### [address] #### VITB1 #### [facility] , Lymphocytes/100 WBC (Bld) 49.5 % Normal . [facility] Comment on above: Performed By: #### F E PRO, [id number], CMP, MG, [id number], PHOS, CBC #### [address] #### VITB1 #### [facility] , MCH (RBC) [Entitic mass] 28.6 pg Normal 24.7-34.3 [facility] Comment on above: Performed By: #### F E PRO, [id number], CMP, MG, [id number], PHOS, CBC #### [address] #### VITB1 #### [facility] , MCV (RBC) [Entitic vol] 84.5 fL Normal 80-100 [facility] Comment on above: Performed By: #### F E PRO, [id number], CMP, MG, [id number], PHOS, CBC #### [facility] [address] [place] [address] #### VITB1 #### [facility] , Mean Corpuscular HGB Conc 33.8 g/dL Normal 32.0-35.0 [facility] Comment on above: Performed By: #### F E PRO, [id number], CMP, MG, [id number], PHOS, CBC #### [facility] [address] [place] [address] #### VITB1 #### [facility] , Monocytes (Bld) [#/Vol] 0.7 10*3/uL Normal 0.0-0.8 [facility] Comment on above: Performed By: #### F E PRO, [id number], CMP, MG, [id number], PHOS, CBC #### [address] #### VITB1 #### [facility] , Monocytes/100 WBC (Bld) 7.5 % Normal . [facility] Comment on above: Performed By: #### F E PRO, [id number], CMP, MG, [id number], PHOS, CBC #### [address] #### VITB1 #### [facility] , Neutrophils (Bld) [#/Vol] 3.8 10*3/uL Normal 1.8-7.7 [facility] Comment on above: Performed By: #### F E PRO, [id number], CMP, MG, [id number], PHOS, CBC #### [address] #### VITB1 #### [facility] , Neutrophils/100 WBC (Bld) 40.7 % Normal . [facility] Comment on above: Performed By: #### F E PRO, [id number], CMP, MG, [id number], PHOS, CBC #### [facility] [address] [place] [address] [place] #### VITB1 #### [facility] , Nucleated RBC/100 WBC (Bld) [Ratio] 0.4 % Normal 0-0.5 [facility] Comment on above: Performed By: #### F E PRO, [id number], CMP, MG, [id number], PHOS, CBC #### [facility] [address] [place] [address] [place] #### VITB1 #### [facility] , Platelet mean volume (Bld) [Entitic vol] 7.8 fL Normal 6.3-10.7 [facility] Comment on above: Performed By: #### F E PRO, [id number], CMP, MG, [id number], PHOS, CBC #### [facility] [address] [place] [address] #### VITB1 #### [facility] , Platelets (Bld) [#/Vol] 354 10*3/uL Normal 150-450 [facility] Comment on above: Performed By: #### F E PRO, [id number], CMP, MG, [id number], PHOS, CBC #### [address] #### VITB1 #### [facility] , RBC (Bld) [#/Vol] 4.53 10*6/uL Normal 3.60-5.00 [facility] Comment on above: Performed By: #### F E PRO, [id number], CMP, MG, [id number], PHOS, CBC #### [facility] [address] [place] [address] [place] #### VITB1 #### [facility] , WBC (Bld) [#/Vol] 9.3 10*3/uL Normal 4.5-11.0 [facility] Comment on above: Performed By: #### F E PRO, [id number], CMP, MG, [id number], PHOS, CBC #### [facility] [address] [place] [address] [place] #### VITB1 #### [facility] , Comprehensive Metabolic Pane celestino 07-25-2020 Albumin [Mass/Vol] 4.0 g/dL Normal 3.2-5.5 [facility] Comment on above: Performed By: #### F E PRO, [id number], CMP, MG, [id number], PHOS, CBC #### [facility] [address] [place] [address] #### VITB1 #### [facility] , Albumin/Globulin [Mass ratio] 1.4 {ratio} Normal [facility] Comment on above: Performed By: #### F E PRO, [id number], CMP, MG, [id number], PHOS, CBC #### [facility] [address] [place] [address] #### VITB1 #### [facility] , ALP [Catalytic activity/Vol] 58 U/L Normal 32-92 [facility] Comment on above: Performed By: #### F E PRO, [id number], CMP, MG, [id number], PHOS, CBC #### [facility] [address] [place] [address] #### VITB1 #### [facility] , ALT [Catalytic activity/Vol] 12 U/L Normal 10-60 [facility] Comment on above: Performed By: #### F E PRO, [id number], CMP, MG, [id number], PHOS, CBC #### [facility] [address] [place] [address] [place] #### VITB1 #### [facility] , AST [Catalytic activity/Vol] 19 U/L Normal 10-42 [facility] Comment on above: Performed By: #### F E PRO, [id number], CMP, MG, [id number], PHOS, CBC #### [facility] [address] [place] [address] [place] #### VITB1 #### [facility] , Bilirubin [Mass/Vol] 0.5 mg/dL Normal 0.3-1.2 [facility] Comment on above: Performed By: #### F E PRO, [id number], CMP, MG, [id number], PHOS, CBC #### [facility] [address] [place] [address] #### VITB1 #### [facility] , Calcium [Mass/Vol] 9.0 mg/dL Normal 8.2-10.2 [facility] Comment on above: Performed By: #### F E PRO, [id number], CMP, MG, [id number], PHOS, CBC #### [facility] [address] [place] [address] #### VITB1 #### [facility] , Chloride [Moles/Vol] 100 mmol/L Normal 95-114 [facility] Comment on above: Performed By: #### F E PRO, [id number], CMP, MG, [id number], PHOS, CBC #### [facility] [address] [place] [address] #### VITB1 #### [facility] , CO2 [Moles/Vol] 27.3 mmol/L Normal 22.0-30.[address] [facility] Comment on above: Performed By: #### F E PRO, [id number], CMP, MG, [id number], PHOS, CBC #### [facility] [address] [place] [address] [place] #### VITB1 #### [facility] , Creatinine [Mass/Vol] 0.59 mg/dL Normal 0.44-1.03 [facility] Comment on above: Performed By: #### F E PRO, [id number], CMP, MG, [id number], PHOS, CBC #### [facility] [address] [place] [address] #### VITB1 #### [facility] , Estimated GFR ( Monica > 60 Normal [facility] Comment on above: Result Comment: GFR estimated reference range: According to KDOQI guidelines, <60 ml/min/1.73m2 is sufficient to diagnose a patient with chronic kidney disease. Performed By: #### F E PRO, [id number], CMP, MG, [id number], PHOS, CBC #### [place] [address] [place] #### VITB1 #### [facility] , Estimated GFR (Non- Am > 60 Normal [facility] Comment on above: Performed By: #### F E PRO, [id number], CMP, MG, [id number], PHOS, CBC #### [address] #### VITB1 #### [facility] , Globulin (S) [Mass/Vol] 2.8 g/dL Normal [facility] Comment on above: Performed By: #### F E PRO, [id number], CMP, MG, [id number], PHOS, CBC #### [address] #### VITB1 #### [facility] , Glucose [Mass/Vol] 118 mg/dL High 70-100 [facility] Comment on above: Result Comment: S [place] om Glucose Reference Range is dependent on time and content of last meal. Glucose of more than 200 mg/dL in a nonstressed, ambulatory subject supports the diagnosis of Diabetes Mellitus. ADA recommended reference range Performed By: #### F E PRO, [id number], CMP, MG, [id number], PHOS, CBC #### [place] [address] [place] #### VITB1 #### [facility] , Potassium [Moles/Vol] 3.6 mmol/L Normal 3.5-5.1 [facility] Comment on above: Performed By: #### F E PRO, [id number], CMP, MG, [id number], PHOS, CBC #### [address] [place] [address] [place] #### VITB1 #### [facility] , Protein [Mass/Vol] 6.8 g/dL Normal 6.1-7.9 [facility] Comment on above: Performed By: #### F E PRO, [id number], CMP, MG, [id number], PHOS, CBC #### [facility] [address] [place] [address] [place] #### VITB1 #### [facility] , Sodium [Moles/Vol] 136 mmol/L Normal 136-146 [facility] Comment on above: Performed By: #### F E PRO, [id number], CMP, MG, [id number], PHOS, CBC #### [address] #### VITB1 #### [facility] , Urea nitrogen [Mass/Vol] 10 mg/dL Normal 9-23 [facility] Comment on above: Performed By: #### F E PRO, [id number], CMP, MG, [id number], PHOS, CBC #### [facility] [address] [place] [address] #### VITB1 #### [facility] , FE PROon 07-25-2020 % Iron Saturation 15.0 % Low 20-50 [facility] Comment on above: Performed By: #### F E PRO, [id number], CMP, MG, [id number], PHOS, CBC #### [facility] [address] [place] [address] [place] #### VITB1 #### [facility] , Ferritin [Mass/Vol] 8.8 ng/mL Low 11-306.8 [facility] Comment on above: Performed By: #### F E PRO, [id number], CMP, MG, [id number], PHOS, CBC #### [facility] [address] [place] [address] #### VITB1 #### [facility] , Iron [Mass/Vol] 68 ug/dL Normal 40-150 [facility] Comment on above: Performed By: #### F E PRO, [id number], CMP, MG, [id number], PHOS, CBC #### [facility] [address] [place] [address] #### VITB1 #### [facility] , Total Iron Binding Capacity 441 ug/dL Normal 255-450 [facility] Comment on above: Performed By: #### F E PRO, [id number], CMP, MG, [id number], PHOS, CBC #### [facility] [address] [place] [address] #### VITB1 #### [facility] , Transferrin [Mass/Vol] 315 mg/dL Normal 180-380 [facility] Comment on above: Performed By: #### F E PRO, [id number], CMP, MG, [id number], PHOS, CBC #### [facility] [address] [place] [address] #### VITB1 #### [facility] , Magnesiumon 07-25-2020 Magnesium [Mass/Vol] 1.9 mg/dL Normal 1.6-2.6 [facility] Comment on above: Performed By: #### F E PRO, [id number], CMP, MG, [id number], PHOS, CBC #### [facility] [address] [place] [address] [place] #### VITB1 #### [facility] , Phosphoruson 07-25-2020 Phosphate [Mass/Vol] 3.8 mg/dL Normal 2.5-4.6 [facility] Comment on above: Performed By: #### F E PRO, [id number], CMP, MG, [id number], PHOS, CBC #### [facility] [address] [place] [address] #### VITB1 #### [facility] , Vit. B12/Folate Profileon Cobalamin (Vitamin B12) [Mass/Vol] 613 pg/mL Normal 180-914 [facility] Comment on above: Performed By: #### F E PRO, [id number], CMP, MG, [id number], PHOS, CBC #### [facility] [address] [place] [address] [place] #### VITB1 #### [facility] , Folate 21.8 ng/mL Normal >5.9 [facility] Comment on above: Result Comment: Hiral te reference range: >5.9 ng/ml The WHO technical consultation on folate and vitamin b12 deficiencies has determined that folate concentrations less than 4 ng/ml are considered deficient. Performed By: #### F E PRO, [id number], CMP, MG, [id number], PHOS, CBC #### [facility] [address] [place] [address] #### VITB1 #### [facility] , Vitamin B1 (Thiamine) Bloodo n 07-25-2020 Vitamin B1 (Thiamine) Blood 120.7 Normal 66.5-200.0 [facility] Comment on above: Order Comment: Speci men Comment: Test(s) 717193-Gbl. B1, Whole Blood Specimen Comment: was developed and its performance characteristics Specimen Comment: determined by [facility]. It has not been cleared or approved Specimen Comment: by the Food and Drug Administration. Result Comment: Perf ormed at: - [facility] [address] [id number] Director Financial Planning: Jaren Bishop MD, Phone: [phone] PERFORMED BY: [place] [address] PATHOLOGIST AERONAUTICAL ENGINEERING TECHNOLOGIST TOLU MANUEL M.D. Performed By: #### F E PRO, [id number], CMP, MG, [id number], PHOS, CBC #### [address] #### VITB1 #### [facility] , Vitamin D 25 Hydroxy Totalon 07-25-2020 Vitamin D 25 Hydroxy Total 33.5 ng/mL Normal 30-100 [facility] Comment on above: Result Comment: LISANDRO MIN D STATUS 25(OH)VITAMIN D RANGE (ng/mL) Deficient <20 Insufficient 20 to <30 Sufficient 30 to 100 Reference: Sejal MF,Shraddha NC, Filiberto GREENBERG, et al. Evaluation,treatment, and prevention of vitamin D deficiency; an Endocrine Society clinical practice guideline. JCEM. 2010; 96(7):1911-30. PERFORMED BY: [place] [address] PATHOLOGIST AERONAUTICAL ENGINEERING TECHNOLOGIST TOLU MANUEL M.D. Performed By: #### F E PRO, [id number], CMP, MG, [id number], PHOS, CBC #### [address] #### VITB1 #### [facility] , COVID-19 Antigenon 1 COVID-19 Antigen Healthcare Worker?: Y Sharda Reference Sharda Reference Negative SARS-CoV+SARS-CoV-2 (COVID-19) Ag [Presence] in Respiratory specimen by Rapid immunoassay Negative for SARS Antigen by [facility] COVID19 Blank Space Sharda Disclaimer Negative results, from patients with symptom Sharda Disclaimer onset beyond five days, should be treated as Sharda Disclaimer presumptive and confirmation with a molecular Sharda Disclaimer assay, if necessary, for patient management, Sharda Disclaimer may be performed. Negative results do not rule Sharda Disclaimer out COVID-19 and should not be used as the sole Sharda Disclaimer basis for treatment or patient management Sharda Disclaimer decisions, including infection control decisions. Sharda Disclaimer Negative results should be considered in the Sharda Disclaimer context of a patient's recent exposures, history Sharda Disclaimer and the presence of clinical signs and symptoms Sharda Disclaimer consistent with COVID-19. COVID19 Blank Space Sharda Disclaimer The Sharda SARS Antigen [facility] does not differentiate Sharda Disclaimer between SARS-CoV and SARS-CoV-2. COVID19 Blank Space Sharda Disclaimer This test was developed and its performance Sharda Disclaimer characteristic determined by [employer] and Sharda Disclaimer validated at [facility]. This Sharda Disclaimer test has not been FDA cleared or approved. This Sharda Disclaimer test has been authorized by FDA under an Emergency Use Sharda Disclaimer Authorization (EUA). This test has been validated Sharda Disclaimer in accordance with the FDA's Guidance Document (Policy Sharda Disclaimer for Diagnostics Testing in Laboratories Certified to Sharda Disclaimer Perform High Complexity Testing under CLIA prior to Sharda Disclaimer Emergency Use Authorization for Coronavirus Sharda Disclaimer during the Public Health Emergency) Sharda Disclaimer issued on July 30, 2019. This test is only authorized Sharda Disclaimer for the duration of time the declaration that Sharda Disclaimer circumstances exist justifying the authorization of Sharda Disclaimer the emergency use of in vitro diagnostic tests for Sharda Disclaimer detection of SARS-CoV-2 virus and/or diagnosis of Sharda Disclaimer COVID-19 infection under section 564(b)(1) of the Sharda Disclaimer Act, 21 U.S.C. 360bbb-3(b)(1), unless the Sharda Disclaimer authorization is terminated or revoked sooner. PERFORMED BY: [facility] [address] [place] [address] PATHOLOGIST AERONAUTICAL ENGINEERING TECHNOLOGIST TOLU MANUEL M.D. [facility] Comment on above: Performed By: #### C OVID-19 SHARDA, SOFIANEG #### [place] [id number] [facility] Sharda Ag Negativeon 07-21-19 21 Sharda Ag Negative Negative Normal Negative [facility] Comment on above: Result Comment: This is a duplicate Sharda SARS Antigen ([facility]) result to be used for statistical tracking purpose only. PERFORMED BY: [place] [address] PATHOLOGIST AERONAUTICAL ENGINEERING TECHNOLOGIST TOLU MANUEL M.D. Performed By: #### C OVID-19 SHARDA, SOFIANEG #### [place] [id number] [facility] Vitamin B1 (Thiamine) Whl Bl ood LCon 10-05-2018 Vit B1 Whl Bld LC 154.0 nmol/L 66.5-200.0 [facility] Comment on above: Result Comment: This test was developed and its performance characteristics determined by [facility]. It has not been cleared or approved by the Food and Drug Administration. Performed At: [address] [id number] Dario Eastman MD Ph:[phone] Performed By: #### 9 056112, [id number], 8167832, [id number], 7412265, 317390027, 5615963, 7928289, 4610881, 9599262 #### [facility] (DEFAULT) [address] [place] [address] Provider Orderson 10-03-2018 Protein mass conc [id number] 1.00OTGTIFF Normal [facility] Coding Summaryon 10-02-2018 Coding Summary CODING DATE: 10/02/2018 FINAL [facility] STATUS: Home PAYOR: Commercial Insurance ADMIT DX: REASON FOR VISIT DX: Z98.84 Bariatric surgery status FINAL DX: PRINCIPAL: Z98.84 Bariatric surgery status SECONDARY: M54.9 Dorsalgia, unspecified M25.569 Pain in unspecified knee PROCEDURES DOCTOR NAME DATE NOTE: The code number assigned matches the documented diagnosis and / or procedure in the patient's chart. However, the narrative phrase printed from the coding software may appear abbreviated, or result in slightly different terminology. Coded By: Jordyn Martinez Date Saved: 10/02/2018 03:39 pm Normal [facility] .Auto Diff 10-01-2018 Auto Baso % 0.3 % Normal 0.2-2.0 [facility] Comment on above: Performed By: #### 9 512891, 95113563, 2322609, [id number], 0183498, 498766783, 0200897, 0714568, 3136954, 9553262 #### [facility] (DEFAULT) [address] [place] [address] Auto Weston % 6 % Normal 1-12 [facility] Comment on above: Performed By: #### 9 825679, 35226451, 1412342, 4363565862, 1037401, 694040000, 0503081, 4143747, 0959630, 0293168 #### [facility] (DEFAULT) [address] [place] [address] Auto Neut % 60 % Normal 44-88 [facility] Comment on above: Performed By: #### 9 841852, 76180945, 4664009, 3407829381, 0135528, 794734767, 0241943, 2133377, 8127389, 4115611 #### [facility] (DEFAULT) [address] [place] [address] Baso Abs# 0.0 x10 Normal 0.0-0.2 [facility] Comment on above: Performed By: #### 9 177996, 61369166, 4340122, 0220411027, 2518407, 963541208, 7263119, 9741053, 2865456, 6625883 #### [facility] (DEFAULT) [address] [place] [address] Eos Abs# 0.1 x10 Normal 0.0-0.4 [facility] Comment on above: Performed By: #### 9 574136, 95953209, 2475332, 6238624824, 6890350, 389785376, 9623096, 8567053, 3303500, 7364224 #### [facility] (DEFAULT) [address] [place] [address] Eosinophils/100 WBC (Bld) 0.9 % Normal 0.9-4.0 [facility] Comment on above: Performed By: #### 9 128715, 69804706, 3240923, 0505142882, 2146080, 429471728, 1800459, 9914844, 8496212, 5898774 #### [facility] (DEFAULT) [address] [place] [address] Lymphocytes #/vol (Bld) 3.4 x10 High 1.3-2.9 [facility] Comment on above: Performed By: #### 9 975744, 68514948, 7758537, 7333059774, 2606832, 019516959, 2164965, 6581164, 5156661, 2761541 #### [facility] (DEFAULT) [address] [place] [address] Lymphocytes/100 WBC (Bld) 33 % Normal 14-48 [facility] Comment on above: Performed By: #### 9 373238, 23256832, 6479187, 4975927168, 5609951, 554906490, 6986167, 6878212, 1047216, 4085450 #### [facility] (DEFAULT) [address] [place] [address] Weston Abs# 0.6 x10 Normal 0.0-0.8 [facility] Comment on above: Performed By: #### 9 169114, 94759265, 1806821, 4994983770, 1549878, 316593139, 6955553, 8444796, 7961656, 9769263 #### [facility] (DEFAULT) [address] [place] [address] Neut Abs# 6.2 x10 Normal 1.5-9.2 [facility] Comment on above: Performed By: #### 9 979343, 06750534, 3845634, 3834322679, 3592120, 709380309, 2194504, 1925159, 7451965, 5519095 #### [facility] (DEFAULT) [address] [place] [address] CBC w/ Auto Diffon 9 Erythrocyte distribution width Ratio (RBC) 14.6 % Normal 11.5-15.0 [facility] Comment on above: Performed By: #### 9 542964, 56218457, 7903193, 9567791368, 8849640, 938403826, 2935157, 9666997, 6808401, 5859589 #### [facility] (DEFAULT) [address] [place] [address] Hematocrit Volume Fraction (Bld) 41.2 % High 33.7-40.4 [facility] Comment on above: Performed By: #### 9 595466, 38686018, 2835359, 2757489761, 6045186, 647724445, 7319542, 7225687, 5961145, 7977315 #### [facility] (DEFAULT) [address] [place] [address] Hemoglobin mass conc (Bld) 13.7 g/dL Normal 11.3-15.9 [facility] Comment on above: Performed By: #### 9 013269, 02149269, 3545050, 3829903856, 3226826, 420382878, 4285839, 3432707, 8664307, 2029157 #### [facility] (DEFAULT) [address] [place] [address] Man Diff? Auto Normal [facility] Comment on above: Performed By: #### 9 360104, 63165213, 9448771, 6693411884, 7416509, 816677610, 4672705, 8820495, 3914503, 0024316 #### [facility] (DEFAULT) [address] [place] [address] MCH Entitic mass (RBC) 28 pg Normal 24-34 [facility] Comment on above: Performed By: #### 9 646437, 93766003, 8620822, 3374797210, 1102380, 306102821, 7463724, 4150851, 9646568, 1607817 #### [facility] (DEFAULT) [address] [place] [address] MCHC mass conc (RBC) 33 g/dL Normal 26-37 [facility] Comment on above: Performed By: #### 9 141705, 50380470, 8965656, 6456471016, 1071819, 245206150, 4752173, 3082040, 2312206, 4864764 #### [facility] (DEFAULT) [address] [place] [address] MCV Entitic volume (RBC) 85 fL Normal 81-100 [facility] Comment on above: Performed By: #### 9 872286, 79048782, 8795823, 6108625863, 9421579, 856814115, 0038946, 0137996, 5155761, 0931178 #### [facility] (DEFAULT) [address] [place] [address] Platelet mean volume Entitic volume (Bld) 9.8 fL Normal 6.3-10.2 [facility] Comment on above: Performed By: #### 9 451046, 13193818, 7172167, 7165993138, 5683063, 678559344, 1769830, 9289919, 7918120, 0244714 #### [facility] (DEFAULT) [address] [place] [address] Platelets #/vol (Bld) 378 x10 Normal 138-427 [facility] Comment on above: Performed By: #### 9 338491, 58527084, 9041127, 0905504945, 3355271, 424872767, 3717042, 8411517, 8254869, 5182939 #### [facility] (DEFAULT) [address] [place] [address] RBC #/vol (Bld) 4.84 x10 Normal 3.70-5.30 [facility] Comment on above: Performed By: #### 9 107887, 43676166, 1447477, 7714327734, 3457567, 496587505, 9983488, 0495795, 6142766, 6094105 #### [facility] (DEFAULT) [address] [place] [address] WBC #/vol (Bld) 10.4 x10 Normal 3.5-10.5 [facility] Comment on above: Performed By: #### 9 [id number], [id number], 3582758, [id number], 7141564, 070076730, 7193494, 5288483, 3474708, 8317474 #### [facility] (DEFAULT) [address] [place] [address] CMP Standardon 10-01-2018 eGFR Non AA >60 [facility] Comment on above: Performed By: #### 9 775045, 30523035, 3782559, [id number], 5332215, 243334396, 1756123, 7665828, 8484601, 8528729 #### [facility] (DEFAULT) [address] [place] [address] eGFR AA >60 [facility] Comment on above: Result Comment: Pie Bottomer richard Kidney disease could be indicated at eGFRs of less than 60 ml/min/1.73m2. Kidney Failure is indicated at less than 15 ml/min/1.73m2 Performed By: #### 9 849428, 78983387, 3996156, 8752197175, 5253089, 886820644, 3558152, 0597293, 8440583, 8937576 #### [facility] (DEFAULT) [address] [place] [address] Albumin mass conc 4.1 g/dL Normal 3.5-5.0 [facility] Comment on above: Performed By: #### 9 421304, 57377766, 4846281, 3258101528, 3736511, 599536225, 2411061, 7414971, 8208450, 0472615 #### [facility] (DEFAULT) [address] [place] [address] Albumin/Globulin mass ratio 1.2 {ratio} Low 1.4-2.6 [facility] Comment on above: Performed By: #### 9 599598, 09111481, 2917226, 6322677426, 3901667, 403618065, 5718969, 7796182, 9937136, 3844768 #### [facility] (DEFAULT) [address] [place] [address] Alk Phos 57 IU/L Normal 32-91 [facility] Comment on above: Performed By: #### 9 495186, 77147036, 8971418, 4701087890, 9201530, 810538100, 8787184, 8792157, 0702181, 0313855 #### [facility] (DEFAULT) [address] [place] [address] ALT/SGPT 68.0 IU/L High 14.0-54.0 [facility] Comment on above: Performed By: #### 9 459668, 33105248, 6036374, 3498162598, 3710922, 654149410, 5996884, 4186976, 5087095, 7827639 #### [facility] (DEFAULT) [address] [place] [address] Anion gap molar conc 15.0 mmol/L Normal 5.0-19.0 [facility] Comment on above: Performed By: #### 9 879100, 65690283, 9535120, 3099960815, 4681695, 604398955, 3190929, 1259882, 6688460, 3964488 #### [facility] (DEFAULT) [address] [place] [address] AST/SGOT 40 IU/L Normal 15-41 [facility] Comment on above: Performed By: #### 9 323436, 02303929, 2102330, 0723983536, 3459679, 696041158, 0788888, 3100466, 9606880, 0073047 #### [facility] (DEFAULT) [address] [place] [address] Bili Total 0.2 mg/dL Low 0.3-1.2 [facility] Comment on above: Performed By: #### 9 981986, 73836163, 8794012, 2538579097, 7498990, 663159657, 9071761, 1519108, 4857338, 1451791 #### [facility] (DEFAULT) [address] [place] [address] Calcium mass conc 9.1 mg/dL Normal 8.9-10.3 [facility] Comment on above: Performed By: #### 9 589945, 70762520, 8599776, 5177311801, 0269525, 217124103, 9523715, 4277302, 1415735, 9905536 #### [facility] (DEFAULT) [address] [place] [address] Chloride molar conc 103 mmol/L Normal 101-111 [facility] Comment on above: Performed By: #### 9 639154, 75856612, 6987838, 6181113881, 3034491, 864722793, 0337546, 7349507, 1625490, 4094293 #### [facility] (DEFAULT) [address] [place] [address] CO2 molar conc 24 mmol/L Normal 21-32 [facility] Comment on above: Performed By: #### 9 851816, 20288519, 4791088, 8906051023, 2619303, 575331009, 0351386, 5158939, 6609350, 5230879 #### [facility] (DEFAULT) [address] [place] [address] Creatinine mass conc 0.71 mg/dL Normal 0.60-1.30 [facility] Comment on above: Performed By: #### 9 882383, 29798115, 2359310, 7772886558, 0069227, 463840885, 5255567, 5568384, 7625404, 1236992 #### [facility] (DEFAULT) [address] [place] [address] Globulin mass conc (S) 3.3 g/dL Normal 1.5-4.3 [facility] Comment on above: Performed By: #### 9 846519, 40856840, 6172898, 9375167388, 3391346, 287385726, 4316996, 9184866, 7682700, 1714239 #### [facility] (DEFAULT) [address] [place] [address] Glucose mass conc 94.0 mg/dL Normal 74.0-118.0 [facility] Comment on above: Performed By: #### 9 941002, 24709327, 9932888, 1010594681, 6308495, 468218971, 8661343, 6182534, 5108253, 6797326 #### [facility] (DEFAULT) [address] [place] [address] Osmolality 274 mOsm/L [facility] Comment on above: Performed By: #### 9 945772, 13478308, 9881790, 3052164743, 3937596, 995845252, 6473656, 4518154, 7270132, 3933257 #### [facility] (DEFAULT) [address] [place] [address] Potassium molar conc 3.8 mmol/L Normal 3.6-5.1 [facility] Comment on above: Performed By: #### 9 070802, 38818583, 6855274, 9875460578, 2064844, 615333196, 9041931, 9248535, 7805373, 0933776 #### [facility] (DEFAULT) [address] [place] [address] Protein mass conc 7.4 g/dL Normal 6.5-8.1 [facility] Comment on above: Performed By: #### 9 385563, 76697462, 3321166, 3647813724, 6310645, 424345472, 3056079, 3689477, 9401297, 4859613 #### [facility] (DEFAULT) [address] [place] [address] Sodium molar conc 138.0 mmol/L Normal 136.0-144.0 [facility] Comment on above: Performed By: #### 9 822410, 10680657, 7091757, 1931867110, 3959396, 444357237, 3393478, 3848666, 6249483, 2540231 #### [facility] (DEFAULT) [address] [place] [address] Urea nitrogen mass conc 10 mg/dL Normal 8-26 [facility] Comment on above: Performed By: #### 9 954902, 55136714, 6096579, 5216997353, 6506350, 538671706, 5100993, 3330264, 5904558, 4237050 #### [facility] (DEFAULT) [address] [place] [address] Urea nitrogen/Creatinine mass ratio 14.0 mg/mg Normal 4.6-16.2 [facility] Comment on above: Performed By: #### 9 213543, 49535983, 5674339, 5412418913, 9280604, 561185243, 0726723, 2786970, 3403730, 2705285 #### [facility] (DEFAULT) [address] [place] [address] Folateon 10-01-2018 Folic Acid Level 13.29 ng/mL Normal 5.90-24.80 [facility] Comment on above: Result Comment: Norm al folate results > 3.0 ng/mL. Performed By: #### 9 839462, 06639274, 0242122, 7133056352, 7379025, 496123025, 5536080, 5415026, 7540371, 1551892 #### [facility] (DEFAULT) [address] [place] [address] Iron Levelon 10-01-2018 Iron mass conc 53.0 ug/dL Normal 28.0-170.0 [facility] Comment on above: Performed By: #### 9 629381, 92446184, 9365398, 2178502259, 7717727, 878176968, 4034018, 8745525, 9602327, 2404591 #### [facility] (DEFAULT) [address] [place] [address] Magnesiumon 10-01-2018 Magnesium mass conc 2.01 mg/dL Normal 1.80-2.50 [facility] Comment on above: Result Comment: The reference range for magnesium has changed from 0.40-2.10 mg/dl to 1.80-2.50 mg/dl as of 08/15/15. Performed By: #### 9 390077, 43721339, 4730944, 9494111202, 1098640, 526761705, 1570794, 2381626, 9247997, 5030182 #### [facility] (DEFAULT) [address] [place] [address] Phoson 10-01-2018 Phosphate mass conc 3.1 mg/dL Normal 2.5-4.6 [facility] Comment on above: Performed By: #### 9 282267, 53345958, 2702345, 7576531113, 0959308, 142052377, 7652134, 0021395, 0199535, 5240383 #### [facility] (DEFAULT) [address] [place] [address] Vit B12 Lvlon 10-01-2018 Cobalamin (Vitamin B12) mass conc 1488 pg/mL High 180-914 [facility] Comment on above: Performed By: #### 9 939090, 49424972, 7043316, 5514900445, 3116621, 409437789, 3235526, 6635402, 2072602, 2616084 #### [facility] (DEFAULT) [address] [place] [address] Vit D25 OHon 10-01-2018 Vitamin D 25 OH 41 ng/mL [facility] Comment on above: Result Comment: In 2 , the Clinical Guidelines Subcommittee of the Endocrine Society Task Force established the guidelines below for recommended serum 25(OH) vitamin D levels. Vitamin D Status 25 (OH) Vitamin D Concentration Range (ng/mL) 25 (OH) Vitamin D Concentration Range (nmol/L) Deficient < 20 < 50 Insufficient 20 to < 30 50 to < 75 Sufficient 30 to 100 75 to 250 Upper Safety Limit >100 >250 Reference Sejal PETERSON et al. Evaluation, Treatment, and Prevention of Vitamin D Deficiency: An Endocrine Society Clinical Practice Guideline, J Clin Endocrinol Metab 2011; 96 (7): 8923-2581. Performed By: #### 9 947573, 06518446, 3463680, 3028297706, 2434442, 194992631, 6044389, 5927914, 6283657, 3831752 #### [facility] ([facility]) [address] [place] [address] Vital Signs Date Time Vital Sign Value Performing Clinician Facility 01-09-2024 15:59-0400 Body height 154.9 cm Xena Mccallum MD Work Phone: [facility] 01-09-2024 15:59-0400 Body mass index (BMI) [Ratio] 29.25 kg/m2 Xena Mccallum MD Work Phone: [facility] 01-09-2024 15:59-0400 Body weight 70.22 kg Xena Mccallum MD Work Phone: [facility] 01-09-2024 15:59-0400 Diastolic blood pressure 70 mm[Hg] Xena Mccallum MD Work Phone: [facility] 01-09-2024 15:59-0400 Heart rate 82 /min Xena Mccallum MD Work Phone: [facility] 01-09-2024 15:59-0400 Respiratory rate 18 /min Xena Mccallum MD Work Phone: [facility] 01-09-2024 15:59-0400 SaO2% (BldA) [Mass fraction] 99 % Xena Mccallum MD Work Phone: [facility] 01-09-2024 15:59-0400 Systolic blood pressure 122 mm[Hg] Xena Mccallum MD Work Phone: [facility] 08-16-2021 10:22-0400 Blood Pressure Location Dung DESMOND [facility] 08-16-2021 10:22-0400 Diastolic blood pressure 72 mm[Hg] Dung LOGAN [facility] 08-16-2021 10:22-0400 Heart rate 84 /min Dung LOGAN [facility] 08-16-2021 10:22-0400 Respiratory rate 16 /min Dung LOGAN [facility] 08-16-2021 10:22-0400 Systolic blood pressure 104 mm[Hg] Dung LOGAN [facility] Encounters Encounter Date Encounter Type Care Provider Facility Start: 02-19-2024 End: 02-20-2024 Refill Xena Mccallum MD Work Phone: [facility] Comment on above: Neck pain; Cervicogenic headache Start: 02-03-2024 End: 02-03-2024 Clinisync Result Encounter Generic External Data Provider [facility] Unsolicited Start: 02-03-2024 End: 02-03-2024 Clinisync Result Encounter Generic External Data Provider [facility] Unsolicited Start: 01-16-2024 End: 01-16-2024 ambulatory XENA MCCALLUM Not Available Start: 01-11-2024 End: 01-11-2024 Orders Only Xena Mccallum MD Work Phone: [facility] Comment on above: Other microscopic he maturia (Primary Dx) Start: 01-09-2024 End: 01-09-2024 Office outpatient visit 15 minutes Xena Mccallum MD Work Phone: [facility] Comment on above: Acute cystitis witho ut hematuria (Primary Dx); Dysuria Start: 01-09-2024 End: 01-09-2024 ambulatory XENA MCCALLUM [facility] Comment on above: Intractable chronic migraine without aura and with status migrainosus (CMS/HCC); Anxiety; Neck pain; Cervicogenic headache Start: 11-05-2023 End: 11-05-2023 ambulatory CLINTON LEWIS Not Available Start: 08-08-2023 End: 08-08-2023 ambulatory ISABEL MURRELL Not Available Start: 07-24-2023 End: 07-25-2023 ambulatory [facility] Start: 07-24-2023 End: 07-24-2023 Patient encounter procedure Dung LOGAN [facility] Start: 07-23-2023 End: 07-23-2023 ambulatory ISABEL R MURRELL Not Available Start: 07-18-2023 End: 07-18-2023 ambulatory ISABEL R MURRELL Not Available Start: 07-15-2023 End: 07-15-2023 ambulatory ISABEL R MURRELL Not Available Start: 06-25-2023 End: 06-25-2023 ambulatory CLINTON LEWIS Not Available Start: 06-18-2023 End: 06-18-2023 ambulatory ISABEL R MURRELL Not Available Start: 05-09-2022 ambulatory CHERYL TOTH Facility:[facility] Start: 04-09-2022 End: 04-10-[address] DUNG LOGAN Facility:[facility] Start: 02-28-2022 End: 03-01-2022 ambulatory CHERYL TOTH Facility:[facility] Start: 12-28-2021 End: 12-29-[address] DOCTOR WHALEN Facility:[facility] Start: 09-01-2021 End: 09-02-[address] DOCTOR WHALEN Facility:[facility] Start: 08-16-2021 End: 08-16-2021 Patient encounter procedure Dung LOGAN [facility] Start: 08-11-2021 End: 08-12-[address] DOCTOR WHALEN Facility:[facility] Start: 05-22-2021 End: 05-29-[address] CLINTON LEWIS Facility:[facility] Start: 05-11-2021 End: 05-14-2021 Evaluation and management of inpatient DR CLINTON LEWIS Facility:[facility] Procedures Date Procedure Procedure Detail Performing Clinician Start: 02-03-2024 ALL CBC WITH AUTO DIFF Generic External Data Provider Start: 01-09-2024 Culture bacterial quanttative colony count urine Xena Mccallum MD Work Phone: Start: 01-09-2024 NOTE Xean irizarry MD Work Phone: Start: 01-09-2024 End: 01-09-2024 Urnls dip stick/tablet rgnt non-auto w/o micrscp Xena Mccallum MD Work Phone: Start: 05-12-2021 Extraction of Produc ts of Conception, Low Cervical, Open Approach DR DUNG LOGAN Start: 05-12-2021 Drainage of Amniotic Fluid, Therapeutic from Products of Conception, Via Natural or Artificial Opening DR DUNG LOGAN Start: 05-12-2021 Introduction of Horm one into Female Reproductive, Via Natural or Artificial Opening DR DUNG LOGAN Start: 03-19-2021 Cystoscope, device ( physical object) Dung LOGAN Bypass of stomach Dung MALDONADO Cholecystectomy Dung LOGAN Plan of Treatment Date Care Activity Detail Author Start: 11-10-2024 End: 11-10-2024 Patient encounter procedure 11/10/2024 10:00 AM EDT Office Visit [facility] [address] [place] [address] Clinton Lewis, DO [address] Gabriela Wilson, [place] [address] [facility] Start: 10-26-2024 Influenza vaccination Influenza Vacc ine (#1) [facility] Comment on above: Postponed from 12/28 (Patient Refused) Start: 01-16-2024 End: 01-16-2024 Professional / ancillary services management 01/16/2024 10:00 AM EDT Ancillary Procedure [facility] [address] [place] [address] [facility] [address] Start: 01-11-2024 End: 01-10-2025 CT Abdomen and Pelvis WO contrast CT abdomen pelvis wo IV contrast Imaging Routine Other microscopic hematuria Expected: 01/11/2024, Expires: 01/10/2025 [facility] Work Phone: Comment on above: Expected: 01/11/2024 , Expires: 01/10/2025 Immunizations Immunization Date Immunization Notes Care Provider Fa cility 05-03-2020 influenza, injectabl e, quadrivalent, contains preservative Xena Mccallum MD Work Phone: [facility] 05-03-2020 influenza virus vacc ine, unspecified formulation Xena Mccallum MD Work Phone: [facility] 01-29-2018 influenza, injectabl e, quadrivalent, contains preservative Xena Mccallum MD Work Phone: [facility] 02-21-2016 influenza, seasonal, injectable, preservative free Xena Mccallum MD Work Phone: [facility] Payers Date Payer Category Payer Medicaid [id number] 2022 Medicaid [facility] [place] [employer] [id number] 2022-Present [address] [place] [id number] 2022 Medicaid (Managed Care) [employer] [id number] 1995 Unknown [id number] 2.16.840.1.095615.3.579.2. 593 1995 Unknown [id number] 2.16.840.1.117600.3.579.2. 593 1995 Unknown [id number] 2.16.840.1.496589.3.579.2. 593 1995 Unknown [id number] 2.16.840.1.202251.3.579.2. 593 1995 Unknown [id number] 2.16.840.1.008295.3.579.2. 593 1995 Unknown [id number] 2.16.840.1.689774.3.579.2. 593 1995 Unknown [id number] 2.16.840.1.870375.3.579.2. 593 1995 Unknown [id number] 2.16.840.1.602002.3.579.2. 593 1995 Unknown [id number] 2.16.840.1.045615.3.579.2. 593 1995 Unknown [id number] 2.16.840.1.122354.3.579.2. 727 1995 Unknown [id number] 2.16.840.1.558784.3.579.2. 1259 1995 Unknown [id number] 2.16.840.1.852897.3.579.2. 1259 1995 Unknown [id number] 2.16.840.1.533949.3.579.2. 1259 1995 Unknown [id number] 2.16.840.1.005396.3.579.2. 1259 1995 Unknown [id number] 2.16.840.1.391080.3.579.2. 1259 1995 Unknown [id number] 2.16.840.1.092319.3.579.2. 1259 1995 Unknown [id number] 2.16.840.1.791229.3.579.2. 1259 1995 Unknown [id number] 2.16.840.1.418429.3.579.2. 1259 1995 Unknown [id number] 2.16.840.1.208494.3.579.2. 1259 1959 Self-pay [id number] 1959 Unknown [id number] Social History Date Type Detail Facility Start: 04-29-2020 End: 06-18-2023 Tobacco smoking status Never smoked tobacco (finding) [facility] Comment on above: Pt. denies Tobacco smoking status Never [facility] Comment on above: Pt. denies Start: 06-18-2023 End: 01-09-2024 Sex Assigned At Female [facility] Start: 06-18-2023 Tobacco use and exposure Smokeless tobacco non-user [facility] Start: 01-09-2024 End: 01-13-2024 Alcoholic beverage intake Current drinker of alcohol (finding) [facility] Start: 06-18-2023 End: 01-09-2024 History of Social function [facility] How often to you hav e a drink containing alcohol? Monthly or less [facility] How many standard drinks containing alcohol do you have on a typical day? 1 or 2 [facility] How often do you hav e 6 or more drinks on 1 occasion? Never [facility] Start: 06-24-2023 Alcohol Comment caffeine: 1-2 cups per day [facility] Start: 1995 Sex assigned at Not on file [facility] Clinical Notes 05-11-2021 to 02-20-2024 Telephone Encounter - Xena Mccallum MD - 02/20/2024 9:11 AM EDTTelephone Encounter - Xena Mccallum MD - 02/20/2024 9:11 AM Leslie Mccallum MD - 01/09/2024 4:00 PM EDT Note Date & Type Note Facility 02-20-2024 Telephone encounter Note Approvals with refills [facility] 02-20-2024 Miscellaneous Notes Approvals with refills documented in this encounter [facility] 01-09-2024 History of Presen t illness Narrative Tan Colon is a 28 y.o. female presents with chief complaint of UTI (Patient presents today for painful urination, pink colored urine. Patient states that it started about 2 days ago.) HPI: HPI SUBJECTIVE: MEDICATIONS: Current Outpatient Medications Medication Instructions busPIRone (BUSPAR) 10 mg, Oral, Daily PRN, Taking half a tablet tiZANidine (ZANAFLEX) 4 mg, Oral, Nightly PRN topiramate (TOPAMAX) 25 mg, Oral, 2 times daily Ubrelvy 100 mg, Oral, Daily ALLERGIES: Allergies Allergen Reactions Clindamycin Swelling Other Reaction(s): Tongue swelling Lamotrigine Other Reaction(s): worsened depression Morphine Hives Penicillins Rash and Unknown SURGICAL HISTORY: Past Surgical History: Procedure Laterality Date BARIATRIC SURGERY 07/2018 CHOLECYSTECTOMY 05/2014 Laparoscopic COSMETIC SURGERY 05/17/2020 [facility] [place] ELBOW SURGERY Left 1999 OTHER SURGICAL HISTORY 2014 kidney stent WRIST SURGERY Left 2000 FAMILY HISTORY: Family History Problem Relation Name Age of Onset Hypertension Mother Asthma Mother Kidney failure Father Diabetes Father Hypertension Father Heart disease Father Alcohol abuse Father Cancer Other Grandparents Stroke Other Grandparents SOCIAL HISTORY: Social History Tobacco Use Smoking status: Never Smokeless tobacco: Never Substance Use Topics Alcohol use: Yes Comment: caffeine: 1-2 cups per day Drug use: Never Depression: Not at risk (06/18/2023) PHQ-2 PHQ-2 Score: 0 REVIEW OF SYMPTOMS: Review of Systems OBJECTIVE: Visit Vitals BP 122/70 (BP Location: Left arm, Patient Position: Sitting, BP Cuff Size: Adult) Pulse 82 Resp 18 Ht 5' 1 Wt 154 lb 12.8 oz SpO2 99% BMI 29.25 kg/m OB Status Having periods Smoking Status Never BSA 1.74 m Physical Exam Constitutional: Appearance: Normal appearance. She is normal weight. Musculoskeletal: Cervical back: Normal range of motion and neck supple. Skin: General: Skin is warm and dry. Neurological: General: No focal deficit present. Mental Status: She is alert and oriented to person, place, and time. Mental status is at baseline. Psychiatric: Mood and Affect: Mood normal. Behavior: Behavior normal. Thought Content: Thought content normal. Judgment: Judgment normal. ASSESSMENT AND PLAN: Assessment/Plan Problem List Items Addressed This Visit None Visit Diagnoses Acute cystitis without hematuria - Primary Relevant Medications sulfamethoxazole-trimethoprim (Bactrim DS) 800-160 MG per tablet Dysuria Relevant Orders POCT Urinalysis dipstick (Completed) Urinalysis with reflex microscopic (clean catch) (Completed) Urine culture (clean catch) (Completed) Assessment & Plan documented in this encounter [facility] 01-09-2024 Telephone encounter Note Patient is losing her insurance any day now. Can you refill all these for 90 days? [facility]ses [facility] [place]. She recently got and is switching to her husbands insurance. Thank you [facility] 01-09-2024 Miscellaneous Notes Patient is losing her insurance any day now. Can you refill all these for 90 days? [facility] [place]. She recently got and is switching to her husbands insurance. Thank you documented in this encounter [facility] 08-16-2021 Hospital Discharg e instructions Follow Up Care 08/16/2021 11:11:34 With:DESMOND BURKS, Dung English, URL Address: [address] [place] [address]- When: Unknown [facility] 08-16-2021 Hospital Discharg e instructions Patient Education 08/16/2021 11:04:11 Kidney Stones, [id number] Kidney Stones Kidney stones are rock-like masses that form inside of the kidneys. Kidneys are organs that make pee (urine). A kidney stone may move into other parts of the urinary tract, including: The tubes that connect the kidneys to the bladder (ureters). The bladder. The tube that carries urine out of the body (urethra). Kidney stones can cause very bad pain and can block the flow of pee. The stone usually leaves your body (passes) through your pee. You may need to have a doctor take out the stone. What are the causes? Kidney stones may be caused by: A condition in which certain glands make too much parathyroid hormone (primary hyperparathyroidism). A buildup of a type of crystals in the bladder made of a chemical called uric acid. The body makes uric acid when you eat certain foods. Narrowing (stricture) of one or both of the ureters. A kidney blockage that you were born with. Past surgery on the kidney or the ureters, such as gastric bypass surgery. What increases the risk? You are more likely to develop this condition if: You have had a kidney stone in the past. You have a family history of kidney stones. You do not drink enough water. You eat a diet that is high in protein, salt (sodium), or sugar. You are overweight or very overweight (obese). What are the signs or symptoms? Symptoms of a kidney stone may include: Pain in the side of the belly, right below the ribs (flank pain). Pain usually spreads (radiates) to the groin. Needing to pee often or right away (urgently). Pain when going pee (urinating). Blood in your pee (hematuria). Feeling like you may vomit (nauseous). Vomiting. Fever and chills. How is this treated? Treatment depends on the size, location, and makeup of the kidney stones. The stones will often pass out of the body through peeing. You may need to: Drink more fluid to help pass the stone. In some cases, you may be given fluids through an IV tube put into one of your veins at the hospital. Take medicine for pain. Make changes in your diet to help keep kidney stones from coming back. Sometimes, medical procedures are needed to remove a kidney stone. This may involve: A procedure to break up kidney stones using a beam of light (laser) or shock waves. Surgery to remove the kidney stones. Follow these instructions at home: Medicines Take yusr-vwn-ocpsfei and prescription medicines only as told by your doctor. Ask your doctor if the medicine prescribed to you requires you to avoid driving or using heavy machinery. Eating and drinking Drink enough fluid to keep your pee pale yellow. You may be told to drink at least 8 10 glasses of water each day. This will help you pass the stone. If told by your doctor, change your diet. This may include: ?Limiting how much salt you eat. ?Eating more fruits and vegetables. ?Limiting how much meat, poultry, fish, and eggs you eat. Follow instructions from your doctor about eating or drinking restrictions. General instructions Collect pee samples as told by your doctor. You may need to collect a pee sample: ?24 hours after a stone comes out. ?8 12 weeks after a stone comes out, and every 6 12 months after that. Strain your pee every time you pee (urinate), for as long as told. Use the strainer that your doctor recommends. Do not throw out the stone. Keep it so that it can be tested by your doctor. Keep all follow-up visits as told by your doctor. This is important. You may need follow-up tests. How is this prevented? To prevent another kidney stone: Drink enough fluid to keep your pee pale yellow. This is the best way to prevent kidney stones. Eat healthy foods. Avoid certain foods as told by your doctor. You may be told to eat less protein. Stay at a healthy weight. Where to find more information National Kidney Foundation (NKF): www.kidney.org [facility] (UCF): www.urologyhealth.org Contact a doctor if: You have pain that gets worse or does not get better with medicine. Get help right away if: You have a fever or chills. You get very bad pain. You get new pain in your belly (abdomen). You pass out (faint). You cannot pee. Summary Kidney stones are rock-like masses that form inside of the kidneys. Kidney stones can cause very bad pain and can block the flow of pee. The stones will often pass out of the body through peeing. Drink enough fluid to keep your pee pale yellow. This information is not intended to replace advice given to you by your health care provider. Make sure you discuss any questions you have with your health care provider. Document Released: 10/01/2008 Document Revised: 09/01/2019 Document Reviewed: 09/01/2019 [employer] Patient Education 2020 [employer]. 08/16/2021 11:04:10 Calorie Counting for Weight Loss Calorie Counting for Weight Loss Calories are units of energy. Your body needs a certain amount of calories from food to keep you going throughout the day. When you eat more calories than your body needs, your body stores the extra calories as fat. When you eat fewer calories than your body needs, your body spaulding fat to get the energy it needs. Calorie counting means keeping track of how many calories you eat and drink each day. Calorie counting can be helpful if you need to lose weight. If you make sure to eat fewer calories than your body needs, you should lose weight. Ask your health care provider what a healthy weight is for you. For calorie counting to work, you will need to eat the right number of calories in a day in order to lose a healthy amount of weight per week. A dietitian can help you determine how many calories you need in a day and will give you suggestions on how to reach your calorie goal. A healthy amount of weight to lose per week is usually 1 2 lb (0.5 0.9 kg). This usually means that your daily calorie intake should be reduced by 500 750 calories. Eating 1,200 1,500 calories per day can help most women lose weight. Eating 1,500 1,800 calories per day can help most men lose weight. What is my plan? My goal is to have calories per day. If I have this many calories per day, I should lose around pounds per week. What do I need to know about calorie counting? In order to meet your daily calorie goal, you will need to: Find out how many calories are in each food you would like to eat. Try to do this before you eat. Decide how much of the food you plan to eat. Write down what you ate and how many calories it had. Doing this is called keeping a food log. To successfully lose weight, it is important to balance calorie counting with a healthy lifestyle that includes regular activity. Aim for 150 minutes of moderate exercise (such as walking) or 75 minutes of vigorous exercise (such as running) each week. Where do I find calorie information? The number of calories in a food can be found on a Nutrition Facts label. If a food does not have a Nutrition Facts label, try to look up the calories online or ask your dietitian for help. Remember that calories are listed per serving. If you choose to have more than one serving of a food, you will have to multiply the calories per serving by the amount of servings you plan to eat. For example, the label on a package of bread might say that a serving size is 1 slice and that there are 90 calories in a serving. If you eat 1 slice, you will have eaten 90 calories. If you eat 2 slices, you will have eaten 180 calories. How do I keep a food log? Immediately after each meal, record the following information in your food log: What you ate. Don't forget to include toppings, sauces, and other extras on the food. How much you ate. This can be measured in cups, ounces, or number of items. How many calories each food and drink had. The total number of calories in the meal. Keep your food log near you, such as in a small notebook in your pocket, or use a mobile juli or website. Some programs will calculate calories for you and show you how many calories you have left for the day to meet your goal. What are some calorie counting tips? Use your calories on foods and drinks that will fill you up and not leave you hungry: ?Some examples of foods that fill you up are nuts and nut butters, vegetables, lean proteins, and high-fiber foods like whole grains. High-fiber foods are foods with more than 5 g fiber per serving. ?Drinks such as sodas, specialty coffee drinks, alcohol, and juices have a lot of calories, yet do not fill you up. Eat nutritious foods and avoid empty calories. Empty calories are calories you get from foods or beverages that do not have many vitamins or protein, such as candy, sweets, and soda. It is better to have a nutritious high-calorie food (such as an avocado) than a food with few nutrients (such as a bag of chips). Know how many calories are in the foods you eat most often. This will help you calculate calorie counts faster. Pay attention to calories in drinks. Low-calorie drinks include water and unsweetened drinks. Pay attention to nutrition labels for low fat or fat free foods. These foods sometimes have the same amount of calories or more calories than the full fat versions. They also often have added sugar, starch, or salt, to make up for flavor that was removed with the fat. Find a way of tracking calories that works for you. Get creative. Try different apps or programs if writing down calories does not work for you. What are some portion control tips? Know how many calories are in a serving. This will help you know how many servings of a certain food you can have. Use a measuring cup to measure serving sizes. You could also try weighing out portions on a kitchen scale. With time, you will be able to estimate serving sizes for some foods. Take some time to put servings of different foods on your favorite plates, bowls, and cups so you know what a serving looks like. Try not to eat straight from a bag or box. Doing this can lead to overeating. Put the amount you would like to eat in a cup or on a plate to make sure you are eating the right portion. Use smaller plates, glasses, and bowls to prevent overeating. Try not to multitask (for example, watch TV or use your computer) while eating. If it is time to eat, sit down at a table and enjoy your food. This will help you to know when you are full. It will also help you to be aware of what you are eating and how much you are eating. What are tips for following this plan? Reading food labels Check the calorie count compared to the serving size. The serving size may be smaller than what you are used to eating. Check the source of the calories. Make sure the food you are eating is high in vitamins and protein and low in saturated and trans fats. Shopping Read nutrition labels while you shop. This will help you make healthy decisions before you decide to purchase your food. Make a grocery list and stick to it. Cooking Try to cook your favorite foods in a healthier way. For example, try baking instead of frying. Use low-fat dairy products. Meal planning Use more fruits and vegetables. Half of your plate should be fruits and vegetables. Include lean proteins like poultry and fish. How do I count calories when eating out? Ask for smaller portion sizes. Consider sharing an entree and sides instead of getting your own entree. If you get your own entree, eat only half. Ask for a box at the beginning of your meal and put the rest of your entree in it so you are not tempted to eat it. If calories are listed on the menu, choose the lower calorie options. Choose dishes that include vegetables, fruits, whole grains, low-fat dairy products, and lean protein. Choose items that are boiled, broiled, grilled, or steamed. Stay away from items that are buttered, battered, fried, or served with cream sauce. Items labeled crispy are usually fried, unless stated otherwise. Choose water, low-fat milk, unsweetened iced tea, or other drinks without added sugar. If you want an alcoholic beverage, choose a lower calorie option such as a glass of wine or light beer. Ask for dressings, sauces, and syrups on the side. These are usually high in calories, so you should limit the amount you eat. If you want a salad, choose a garden salad and ask for grilled meats. Avoid extra toppings like estrada, cheese, or fried items. Ask for the dressing on the side, or ask for olive oil and vinegar or lemon to use as dressing. Estimate how many servings of a food you are given. For example, a serving of cooked rice is cup or about the size of half a baseball. Knowing serving sizes will help you be aware of how much food you are eating at restaurants. The list below tells you how big or small some common portion sizes are based on everyday objects: ?1 oz 4 stacked dice. ?3 oz 1 deck of cards. ?1 tsp 1 . ?1 Tbsp a ping-pong ball. ?2 Tbsp 1 ping-pong ball. ? cup baseball. ?1 cup 1 baseball. Summary Calorie counting means keeping track of how many calories you eat and drink each day. If you eat fewer calories than your body needs, you should lose weight. A healthy amount of weight to lose per week is usually 1 2 lb (0.5 0.9 kg). This usually means reducing your daily calorie intake by 500 750 calories. The number of calories in a food can be found on a Nutrition Facts label. If a food does not have a Nutrition Facts label, try to look up the calories online or ask your dietitian for help. Use your calories on foods and drinks that will fill you up, and not on foods and drinks that will leave you hungry. Use smaller plates, glasses, and bowls to prevent overeating. This information is not intended to replace advice given to you by your health care provider. Make sure you discuss any questions you have with your health care provider. Document Released: 04/15/2006 Document Revised: 01/02/2019 Document Reviewed: 03/15/2017 [employer] Patient Education 2020 [employer]. Follow Up Care 03/22/2021 11:46:26 With:DESMOND BURKS, Dung Amador, URL Address: When:Within 6 Month(s) Comments:w/MAGALYS [facility] 05-11-2021 Note DISCHARGE SUMMARY PRIMARY DIAGNOSES: 1. Intrauterine 39 weeks. 2. Non-reassuring heart tones. PROCEDURE: Primary low transverse section. HOSPITAL COURSE: As expected. Please see chart for full details. LABORATORY DATA: Please see chart. COMPLICATIONS: None. DISCHARGE CONDITION: Stable. CONSULTATION: Anesthesia. DISCHARGE INSTRUCTIONS: 1. Diet: Regular. 2. Medications: a. Percocet 5/325 one to two p.o. every 4-6 hours p.r.n. pain. b. Motrin 800 one p.o. every 8 hours p.r.n. pain. 3. Follow up in one week. Restrictions: Pelvic rest for 6 weeks. No heavy lifting. May drive when pain free and no longer on narcotics. [facility] Signed and Approved by: DR CLINTON LEWIS . 06/08/2021 22:19:00 [facility] 05-11-2021 Note OPERATIVE NOTE PROCEDURE: Primary low transverse section. PREOPERATIVE DIAGNOSIS: 1. Intrauterine at 39 weeks. 2. Non-reassuring heart tones. POSTOPERATIVE DIAGNOSIS: 1. Intrauterine at 39 weeks. 2. Non-reassuring heart tones. SURGEON: Clinton Lewis D.O. HAT AND CAP PARTS CUTTER HAND: MELINA ANESTHESIA: Epidural with Duramorph. BLOOD LOSS: 575 mL. URINE OUTPUT: Yellow and clear. FINDINGS: Viable infant. Apgars unknown at this time. PROCEDURE: Patient was taken back to the Operating Room where she was given a spinal anesthesia with Duramorph without difficulty. She was prepped and draped in the normal sterile fashion. A Pfannenstiel skin incision was then made 2 cm above the symphysis pubis and carried down to underlying rectus fascia using a Bovie. The fascia was incised in the midline and extended laterally using Thomas scissors. Two Tone clamps were placed on the superior aspect of the fascia and dissected off the underlying rectus muscles. The same was performed on the inferior aspect as well. The muscles were then in the midline. Peritoneum was identified and entered bluntly. The peritoneum was then extended superiorly and inferiorly with good visualization of the bladder. The bladder blade was inserted. Vesicouterine peritoneum was identified, tented up, and entered with Metzenbaum scissors. A bladder flap was then created digitally. The bladder blade was reinserted. A low transverse incision was made on the patient's uterus and extended laterally digitally. The infant was then delivered atraumatically after the bladder blade was removed in the cephalic position. The cord was clamped and cut. Cord blood was obtained. The was handed off to awaiting team. The patient's placenta was spontaneously delivered. The uterus was then exteriorized. The uterus was cleared of all clots and debris. The bladder blade was reinserted. The patient's uterine incision was closed using #0 Vicryl in a running lock fashion. Excellent hemostasis was assured. The uterus was then returned to the patient's abdomen. The patient's abdomen was copiously irrigated using warm saline. Peritoneal gutters were cleared of all clots and debris. Again excellent hemostasis was assured. The patient's peritoneum was closed using 3-0 Vicryl in a running fashion. The patient's fascia was closed using #0 Vicryl in a running fashion. The patient's skin was closed using 4-0 Vicryl subcuticularly. The patient tolerated the procedure well. Sponge, lap, and needle counts were correct x2. The patient was taken to the Recovery Room in stable condition. [facility] Signed and Approved by: DR CLINTON LEWIS . 06/08/2021 22:19:00 [facility] Evaluation + Plan note Future Appointments Appointment Date:09/19/2021 11:00:00 AM Scheduled Provider:Dung LOGAN MD Location:[facility] [place] Appointment Type:URO Phone Visit Appointment Date:02/21/2022 11:15:00 AM Scheduled Provider:Dung LOGAN MD Location:[facility] Appointment Type:URO Office Visit [facility] Evaluation note Diagnosis Neck pain Cervicalgia Cervicogenic headache Headache [facility] Diagnosis Intractable chronic migraine without aura and with status migrainosus (CMS/HCC) Anxiety Anxiety state, unspecified Neck pain Cervicalgia Cervicogenic headache Headache [facility]* Diagnosis Other microscopic hematuria- Primary documented in this encounter [facility]* Diagnosis Acute cystitis without hematuria- Primary Dysuria [facility] Narrative No data available for this section [facility] Progress note No data available for this section [facility] Summary Purpose Family History No Family History Records FoundNo Family History Records FoundNo Family History Records FoundNo Family History Records Found No data available for this section No Family History Records FoundNo Family History Records Found Advance Directives No Advanced Directives Records FoundNo Advanced Directives Records FoundNo Advanced Directives Records FoundNo Advanced Directives Records FoundNo Advanced Directives Records FoundNo Advanced Directives Records Found Reason for Referral Specialty Diagnoses / Procedures Referred By Contac t Referred To Contact Radiology Diagnoses Other microscopic hematuria Procedures CT abdomen pelvis wo IV contrast Xena Mccallum MD [address] [place] [address] Referral ID Status Reason Start Date Expiration Date V isits Requested Visits Authorized [id number] Pending Review 01/11/2024 07/09/2024 1 1 Additional Source Comments INFORMATION SOURCE (unrecogn ized section and content) DATE CREATED AUTHOR 10/05/2018 [facility] DATE CREATED AUTHOR AUTHOR'S ORGANIZ ATION 06/06/2021 [facility] DATE CREATED AUTHOR AUTHOR'S ORGANIZ ATION 07/13/2021 [facility] Special[facility] DATE CREATED AUTHOR AUTHOR'S ORGANIZ ATION 05/09/2022 [facility] DATE CREATED AUTHOR AUTHOR'S ORGANIZ ATION 07/26/2023 [facility] DATE CREATED AUTHOR AUTHOR'S ORGANIZ ATION 01/21/2024 [facility] dical Specialists EPIC Patient Care team informatio n (unrecognized section and content) Plastic Boat Patcher Relationship Specialty Start Date End Date Xena Mccallum MD [address] [place] [address] PCP - General Family Medicine 09/04/22 Isabel Murrell, MOLD STAMPER [address] [place] [address] PCP - [facility] 10/28/23 Plastic Boat Patcher Relationship Specialty Start Date End Date Xena Mccallum MD [address] [place] [address] PCP - [facility] 09/04/22 Isabel Murrell, MOLD STAMPER [address] [place] [address] PCP - [facility] 10/28/23 Plastic Boat Patcher Relationship Specialty Start Date End Date Xena Mccallum MD [address] [place] [address] PCP - General Family [facility] 09/04/22 Isabel Murrell, MOLD STAMPER [address] [place] [address] PCP - [facility] 10/28/23 Plastic Boat Patcher Relationship Specialty Start Date End Date Xena Mccallum MD [address] [place] [address] PCP - General Family Medicine 09/04/22 Isabel Murrell, MOLD STAMPER [address] [place] [address] PCP - [facility] 10/28/23 Plastic Boat Patcher Relationship Specialty Start Date End Date Xena Mccallum MD [address] [place] [id number] PCP - General Family Medicine 09/04/22 Isabel Murrell NP [address] [place] [id number] PCP - [facility] 10/28/23 Reason for Visit (unrecogniz ed section and content) Reason Comments UTI Patient presents tod ay for painful urination, pink colored urine. Patient states that it started about 2 days ago. FOR RECORDS PERTAINING TO PATIENTS WHO ARE OR HAVE BEEN ENROLLED IN A CHEMICAL DEPENDENCY/SUBSTANCEABUSE PROGRAM, SOME INFORMATION MAY BE OMITTED. This clinical summary was aggregated from multiple sources. Caution should be exercised in using it in the provision of clinical care. This summary normalizes information from multiple sources, and as a consequence, information in this document may materially change the coding, format and clinical context of patient data. In addition, data may be omitted in some cases. CLINICAL DECISIONS SHOULD BE BASED ON THE PRIMARY CLINICAL RECORDS. [facility]. provides no warranty or guarantee of the accuracy or completeness of information in this document.
== END 2024-04-17 09:24 | disposition home or self-care (01) ==
LOC: NOMS 09:24
PROVIDERS: PCP Family Medicine; Visit Provider Obstetrics & Gynecology
DX: Z34.01 Encounter for supervision of normal first pregnancy, first trimester (principal); Z3A.09 9 weeks gestation of pregnancy; N92.6 Irregular menstruation, unspecified
CPT/HCPCS: 76817

== ENCOUNTER 2024-05-11 10:48 | Outpatient (OUT) | payer MEDICAID, SELFPAY ==
[2024-05-11 11:11] LABS: BOX Test Reference Lab UNITY; BOX Test Sent Out UNITY
[2024-05-11 11:34] LABS: Basophils Percent Auto 0.4 % (0.2-2.0); Eosinophils Absolute Auto 0.1 10^3/uL (0.0-0.7); Eosinophils Percent Auto 0.8 % (0.9-7.0); Hemoglobin 14.1 g/dL (12.0-16.0); Immature Granulocytes Abs Auto 0.03 10^3/uL (0.00-0.03); Immature Granulocytes Pct Auto 0.3 % (0.0-0.5); Lymphocytes Absolute Auto 3.3 10^3/uL (1.2-3.8); Mean Corpuscular HGB Conc 33.6 g/dL (29.9-35.2); Mean Corpuscular Hemoglobin 28.7 pg (26.7-34.0); Mean Corpuscular Volume 85.4 fL (81.0-99.0); Mean Platelet Volume 9.7 fL (9.5-13.5); Monocytes Absolute Auto 0.8 10^3/uL (0.3-0.8); Monocytes Percent Auto 8.1 % (1.7-12.0); Neutrophils Absolute Auto 5.5 10^3/uL (1.4-6.5); Neutrophils Percent Auto 56.4 % (43.0-75.0); Platelet Count 400 10^3/uL (150-450); Red Blood Count 4.92 10^6/uL (4.20-5.40); Red Cell Distribution Width 12.8 % (11.0-15.0); White Blood Count 9.7 10^3/uL (4.0-11.0)
[2024-05-11 11:40] LABS: Estimated Average Glucose 100 mg/dL; Glycohemoglobin A1C 5.1 % (4.5-6.2)
[2024-05-11 13:05] LABS: Amphetamine Screen Urine NEGATIVE (NEGATIVE); Barbiturates Screen Urine NEGATIVE (NEGATIVE); Benzodiazepines Screen Urine NEGATIVE (NEGATIVE); Buprenorphine Screen Urine NEGATIVE (NEGATIVE); Cannabinoid Screen Urine NEGATIVE (NEGATIVE); Cocaine Screen Urine NEGATIVE (NEGATIVE); Methadone Screen Urine NEGATIVE (NEGATIVE); Methamphetamines Screen Urine NEGATIVE (NEGATIVE); Opiate Screen Urine NEGATIVE (NEGATIVE); Oxycodone Screen Urine NEGATIVE (NEGATIVE); Phencyclidine Screen Urine NEGATIVE (NEGATIVE); Tricyclic Antidepressant Urine NEGATIVE (NEGATIVE)
[2024-05-12 06:08] LABS: HBsAg Screen Negative (Negative); HCV Ab Non Reactive (Non Reactive); HIV Ab/p24 Ag Screen Non Reactive (Non Reactive)
[2024-05-12 07:09] LABS: Rubella Antibodies, IgG 4.99 index (Immune >0.99)
[2024-05-12 12:08] LABS: Rapid Plasma Reagin, Quant Non Reactive titer (NonRea<1:1)
== END 2024-05-11 10:49 | disposition home or self-care (01) ==
LOC: LAB 10:48
PROVIDERS: PCP Family Medicine; Visit Provider Obstetrics & Gynecology
DX: Z34.01 Encounter for supervision of normal first pregnancy, first trimester (principal); Z36.0 Encounter for antenatal screening for chromosomal anomalies; N92.6 Irregular menstruation, unspecified
CPT/HCPCS: 36415; 80307; 83036; 85025; 86592; 86762; 86803; 86850; 86900; 86901; 87086; 87340; 87389

== ENCOUNTER 2024-07-22 13:07 | Outpatient (OUT) | payer BC, SELFPAY ==
[2024-07-22 14:12] LABS: Basophils Percent Auto 0.4 % (0.2-2.0); Eosinophils Absolute Auto 0.1 10^3/uL (0.0-0.7); Eosinophils Percent Auto 0.7 % (0.9-7.0); Hematocrit 34.7 % (36.0-48.0); Hemoglobin 11.3 g/dL (12.0-16.0); Immature Granulocytes Abs Auto 0.05 10^3/uL (0.00-0.03); Immature Granulocytes Pct Auto 0.5 % (0.0-0.5); Lymphocytes Absolute Auto 2.7 10^3/uL (1.2-3.8); Lymphocytes Percent Auto 25.7 % (20.5-60.0); Mean Corpuscular HGB Conc 32.6 g/dL (29.9-35.2); Mean Corpuscular Hemoglobin 27.5 pg (26.7-34.0); Mean Corpuscular Volume 84.4 fL (81.0-99.0); Monocytes Absolute Auto 0.7 10^3/uL (0.3-0.8); Monocytes Percent Auto 6.8 % (1.7-12.0); Neutrophils Absolute Auto 6.9 10^3/uL (1.4-6.5); Neutrophils Percent Auto 65.9 % (43.0-75.0); Platelet Count 400 10^3/uL (150-450); Red Blood Count 4.11 10^6/uL (4.20-5.40); Red Cell Distribution Width 12.8 % (11.0-15.0); White Blood Count 10.5 10^3/uL (4.0-11.0)
[2024-07-22 14:13] LABS: Alanine Aminotransferase 17 U/L (14-59); Albumin Globulin Ratio 0.7; Albumin Level 2.9 g/dL (3.4-5.0); Alkaline Phosphatase 72 U/L (46-116); Anion Gap 11.3; Aspartate Amino Transferase 17 U/L (15-37); BUN Creatinine Ratio 20.4; Bilirubin Direct <0.1 mg/dL (0.0-0.2); Bilirubin Total 0.2 mg/dL (0.2-1.0); Calcium 8.5 mg/dL (8.5-10.1); Carbon Dioxide 25.6 mmol/L (21.0-32.0); Chloride 104 mmol/L (98-107); Estimated GFR (African America >60 (>=60 mL/min/1.73m^2); Estimated GFR (Non-African Ame >60 (>=60 mL/min/1.73m^2); Globulin 4.1 g/dL; Glucose 85 mg/dL (74-106); Potassium 3.9 mmol/L (3.5-5.1); Sodium 137 mmol/L (136-145)
[2024-07-22 15:37] LABS: Estimated Average Glucose 100 mg/dL; Glycohemoglobin A1C 5.1 % (4.5-6.2)
== END 2024-07-22 13:08 | disposition home or self-care (01) ==
LOC: LAB 13:08
PROVIDERS: PCP Family Medicine; Visit Provider Obstetrics & Gynecology
DX: O99.842 Bariatric surgery status complicating pregnancy, second trimester (principal); O26.892 Other specified pregnancy related conditions, second trimester; Z13.1 Encounter for screening for diabetes mellitus; R51.9 Headache, unspecified; Z3A.22 22 weeks gestation of pregnancy
CPT/HCPCS: 36415; 80053; 82248; 83036; 85025

== ENCOUNTER 2024-10-07 08:02 | Outpatient (OUT) | payer BC, SELFPAY ==
--- NOTE | 2024-10-07 08:05 | US_ITS ---
[facility] [place] [id number] Patient Name: SAMREEN MARS MRN: [id number] date: 1995 Sex: F Assigned Patient Location: [facility] Current Patient Location: Accession/Order Number: [id number] Exam Date: 10/07/2024 09:20 Report Date: 10/07/2024 09:21 At the request of: CLINTON GALLARDO DO Procedure: US OB BPP w non-stress BIOPHYSICAL PROFILE: CLINICAL INFORMATION: H/O gastric bypass COMPARISON: None There is a single live intrauterine gestation in transverse position, head to the maternal left. Reported gestational age is 33 weeks 6 days. The heart rate measures 134 beats per minute. FINDINGS: TONE: 1 or more episodes of activity extension and flexion of extremity or opening and closing of the hand [Y] 2/2 GROSS BODY MOVEMENTS: 3 or more discrete body or limb movements [Y] 2/2 BREATHING MOVEMENTS: 1 or more episodes of breathing lasting at least 30 seconds [Y] 2/2 PATITO: A single deepest vertical pocket of amniotic fluid greater than 2 cm [Y] 2/2 PATITO: 15.8 cm. This is in normal range. Total score: 8/8 US/ OB BPP w non-stress IMPRESSION: NORMAL BIOPHYSICAL PROFILE . Impression dictated by: Thelma Morales M.D. 10/07/2024 9:21 AM Dictation Location: [place] [address] Electronically authenticated by: [id number] Y Date: 10/07/2024 09:21
--- OUTSIDE RECORDS SUMMARY | 2024-10-07 08:23 | XMS_ITS | CCD ---
Author Organization [facility] Care Team Providers Care Vocational Aide Name Role Phone XENA MCCALLUM Primary Care Physician DESMOND, DR SCOTTY English Admitting Unavailable COOK, DR SCOTTY English Attending Unavailable MARY, DR BARCENAS Primary Care Unavailable COOK, DR SCOTTY English Consulting Unavailable ZIEBSAHIL, DR MELLISSA Higgins Consulting Unavailable MISC, DR NINO Admitting Unavailable MISC, DR NINO Attending Unavailable MARY, DR BARCENAS Primary Care Unavailable MISC, DR NINO Consulting Unavailable MISC, DR NINO Admitting Unavailable MISC, DR NINO Attending Unavailable MARY, DR BARCENAS Primary Care Unavailable MISC, DR NINO Consulting Unavailable DEBBIE, DR ALONZO Admitting Unavailable DEBBIE, DR ALONZO Attending Unavailable MARY, DR BARCENAS Primary Care Unavailable DEBBIE, DR ALONZO Consulting Unavailable AGUBOSIM, BINU Consulting Unavailable UGBANA, KIMBERLEY Consulting Unavailable DEBBIE, DR ALONZO Procedure Practitioner Unavailab le LALOR, CHERYL Admitting Unavailable LALOR, CHERYL Attending Unavailable MARY, DR BARCENAS Primary Care Unavailable DEBBIE, DR ALONZO Admitting Unavailable DEBBIE, DR ALONZO Attending Unavailable MARY, DR BARCENAS Primary Care Unavailable MISC, DR NINO Admitting Unavailable MISC, DR NINO Attending Unavailable MARY, DR BARCENAS Primary Care Unavailable MISC, DR NINO Consulting Unavailable LALOR, CHERYL Admitting Unavailable LALOR, CHERYL Attending Unavailable MARY, DR BARCENAS Primary Care Unavailable LALOR, CHERYL Consulting Unavailable DESMOND, DR SCOTTY English Admitting Unavailable COOK, DR SCOTTY English Attending Unavailable MARY, DR BARCENAS Primary Care Unavailable COOK, DR SCOTTY English Consulting Unavailable MARCOS, DR GENARO Kwon Consulting Unavailable Scotty LOGAN Attending Unavailable Xena Mccallum MD Primary Care Provider Guillermo ALVARADO, Isabel Higgins Unavailable Guillermo SUPERVISOR POWDERED SUGARIsabel Unavailable DOUGLAS LEWIS Attending Unavailable MADDIE HARP Attending Unavailable MADDIE HARP Referring Unavailable DEBBIE, DOUGLAS Attending Unavailable DEBBIE, DOUGLAS Attending Unavailable DEBBIE, DUOGLAS Attending Unavailable DEBBIE, DOUGLAS Attending Unavailable MARY, XENA Bentley Attending Unavailable MARY, XENA Bentley Referring Unavailable DEBBIE, DOUGLAS Referring Unavailable DEBBIE, DOUGLAS Attending Unavailable Allergies Allergy Classification Reported Allergen(s) Allergy Type Date of Onset Reaction(s) Facility (20 sources) Clindamycin; Translations: [clindamycin] Drug Allergy 4 [address] [facility] (3 sources) Penicillin; Translations: [penicillin] Drug Allergy Rash [facility] (2 sources) Clindamycin Drug Allergy 1 [facility] (1 source) Penicillins Drug allergy (disorder) 4 [facility] (20 sources) Lamotrigine Allergy to substance 4 [facility] (20 sources) Morphine Drug Allergy 4 Hives [facility] (20 sources) Penicillins Drug Allergy 6 Rash, Unknown [facility] Medications Current Medications Medication Drug Class(es) Dates Sig (Normalized) Sig (Original) busPIRone hydrochloride 10 mg oral tablet (20 sources) Start: 12-10-2023 End: 01-08-2025 take 1 [...] Refills(s) 0 Start Date: 03/22/21 Status: Ordered Calcium Carbonate (2 sources) take 1 tablet by mouth once daily Calcium Carbonate (CALCIUM 500 PO) Take 1 tablet by mouth Daily Active cephalexin 500 mg oral capsule (2 sources) Cephalosporin Antibacterial Start: take 1 mg by mouth every twelve hours Keflex 500 mg Cap mg cap(s), Oral, q12hr, Refills(s) 0 Start Date: 03/22/21 Status: Ordered citalopram 20 mg oral tablet (5 sources) Serotonin Reuptake Inhibitor Start: End: take 1 tablet by mouth once daily citalopram (CeleXA) 20 MG tablet Indications: Mood changes Take 1 tablet (20 mg) by mouth Daily 30 tablet 11 09/08/2024 09/08/2025 Active cyclobenzaprine hydrochloride 5 mg oral tablet (9 sources) Muscle Relaxant Start: End: take 1 tablet by mouth twice daily as needed for muscle spasms cyclobenzaprine (Flexeril) 5 MG tablet Indications: Nonintractable headache, unspecified chronicity pattern, unspecified headache type , Cramp and spasm Take 1 tablet (5 mg) by mouth 2 (two) times a day as needed for muscle spasms 60 tablet 09/16/2024 10/16/2024 Active Start: 08-03-2024 End: 09-02-2024 take 1 tablet by mouth in the morning cyclobenzaprine (Flexeril) 5 MG tablet Indications: Cramp and spasm Take 1 tablet (5 mg) by mouth in the morning and 1 tablet (5 mg) before bedtime. 60 tablet 08/03/2024 09/02/2024 Active ferrous sulfate 325 mg oral tablet (2 sources) take 1 tablet by mouth once daily Ferrous Sulfate (iron) 325 (65 Fe) MG tablet Take 1 tablet by mouth Daily Active magnesium oxide 400 mg oral tablet (18 sources) Start: 07-16-2024 End: 09-23-2024 take 1.5 tablets by mouth once daily magnesium oxide (Mag-Ox) 400 MG tablet Indications: Nonintractable headache, unspecified chronicity pattern, unspecified headache type Take 1.5 tablets (600 mg) by mouth Daily 45 tablet 3 08/13/2024 09/23/2024 Active Start: 06-17-2024 End: 07-17-2024 take 1 tablet by mouth once daily magnesium oxide (Mag-Ox) 400 MG tablet Indications: Nonintractable headache, unspecified chronicity pattern, unspecified headache type Take 1 tablet (400 mg) by mouth Daily 30 tablet 6 06/17/2024 07/16/2024 Discontinued (Reorder) Metoclopramide (2 sources) Dopamine-2 Receptor Antagonist Start: [...] Refill(s) 0 Start Date: 03/22/21 Status: Ordered MV-Min-Fe Fum-FA-DHA ( 1 PO) (2 sources) MV-Min-Fe Fum-FA-DHA ( 1 PO) Take 1 tablet by mouth Daily Active promethazine hydrochloride 12.5 mg oral tablet (15 sources) Phenothiazine Start: 08-03-2024 take 1 tablet by mouth every six hours as needed for nausea and vomiting and nausea and nausea promethazine (Phenergan) 12.5 MG tablet Indications: Nausea Take 1 tablet (12.5 mg) by mouth every 6 (six) hours if needed for nausea or vomiting for up to 30 doses Take 1 tablet by mouth every 6 hours as needed for nausea. 30 tablet 2 08/03/2024 Active Start: 06-17-2024 take 1 tablet by naomie th every six hours as needed for nausea and vomiting and nausea and nausea promethazine (Phenergan) 12.5 MG tablet Indications: Nausea Take 1 tablet (12.5 mg) by mouth every 6 (six) hours if needed for nausea or vomiting for up to 30 doses Take 1 tablet by mouth every 6 hours as needed for nausea. 30 tablet 2 06/17/2024 Active sulfamethoxazole 800 mg / trimethoprim 160 mg oral tablet (4 sources) Dihydrofolate Reductase Inhibitor Antibacterial, Sulfonamide Antimicrobial Start: 01-09-2024 End: 01-16-2024 take 1 tablet by mouth once in the morning, then take 1 tablet by mouth once at bedtime sulfamethoxazole-trimethoprim (Bactrim DS) 800-160 MG per tablet Indications: Acute cystitis without hematuria Take 1 tablet by mouth in the morning and 1 tablet before bedtime. Do all this for 7 days. 14 tablet 01/09/2024 01/16/2024 Active tiZANidine 4 mg oral tablet (20 sources) Central alpha-2 Adrenergic Agonist Start: 12-10-2023 End: 09-23-2024 tiZANidine (Zanaflex) 4 MG tablet Indications: Neck pain , Cervicogenic headache Take 1 tablet (4 mg) by mouth as needed at bedtime for muscle spasms 270 tablet 02/20/2024 09/23/2024 Discontinued topiramate 25 mg oral tablet (20 sources) Start: 08-08-2023 End: 01-08-2025 take 1 tablet by mouth in the morning topiramate (Topamax) 25 MG tablet Indications: Intractable chronic migraine without aura and with status migrainosus (CMS/HCC) Take 1 tablet (25 mg) by mouth in the morning and 1 tablet (25 mg) before bedtime. 180 tablet 3 01/09/2024 09/23/2024 Discontinued traZODone hydrochloride 100 mg oral tablet (2 sources) Serotonin Reuptake Inhibitor Start: 03-22-2021 take 1 mg by mouth twice daily traZODONE 100 mg Tab mg tab(s), Oral, BID, Refills(s) 0 Start Date: 03/22/21 Status: Ordered ubrogepant 100 mg oral tablet (20 sources) Start: 08-08-2023 End: 09-23-2024 take 1 tablet by mouth once daily Ubrogepant (Ubrelvy) 100 MG tablet Indications: Intractable chronic migraine without aura and with status migrainosus (CMS/HCC) Take 100 mg by mouth Daily 30 tablet 08/08/2023 09/23/2024 Discontinued Problems Active Problems Problem Classification Problem Date Documented Da te Episodic/Chronic Anxiety disorders (20 sources) Anxiety; Translations: [Anxiety disorder, unspecified] Onset: 4 06-18-2023 Chronic Esophageal disorders (20 sources) Gastroesophageal reflux disease; Translations: [Gastro-esophageal reflux disease without esophagitis] Onset: 4 06-18-2023 Chronic Genitourinary symptoms and ill-defined conditions (3 sources) Microscopic hematuria; Translations: [Other microscopic hematuria] 01-11-2024 Episodic Headache; including migraine (1 source) Refractory migraine without aura; Translations: [Chronic migraine without aura, intractable, with status migrainosus] 01-09-2024 Chronic Headache; including migraine (8 sources) Cervicogenic headache; Translations: [Cervicogenic headache] 02-19-2024 Episodic Immunizations and screening for infectious disease (6 sources) Patient encounter status; Translations: [Encounter for screening for infections with a predominantly sexual mode of transmission] 06-17-2024 Episodic Menstrual disorders (1 source) Missed period; Translations: [Irregular menstruation, unspecified] 04-17-2024 Chronic Mood disorders (20 sources) Depressive disorder; Translations: [Depression] Onset: 4 06-18-2023 Chronic Mood disorders (2 sources) Disturbance in mood; Translations: [Emotional lability] 09-08-2024 Episodic Nausea and vomiting (2 sources) Nausea; Translations: [Nausea] 06-17-2024 Episodic Neoplasms of unspecified nature or uncertain behavior (20 sources) Essential thrombocythemia; Translations: [Essential (hemorrhagic) thrombocythemia] [...] mass index 30+ - obesity 08-16-2021 Chronic Other and delivery including normal (20 sources) Encounter for care and examination of lactating mother; Translations: [Single live ] Onset: 2 Episodic Other screening for suspected conditions (not mental disorders or infectious disease) (2 sources) Alpha-fetoprotein blood test status; Translations: [Encounter for screening for raised alphafetoprotein level] 06-17-2024 Episodic Residual codes; unclassified (1 source) Gestation period, 9 weeks; Translations: [9 weeks gestation of ] 04-17-2024 Episodic Residual codes; unclassified (2 sources) Gestation period, 13 weeks; Translations: [13 weeks gestation of ] 05-20-2024 Episodic Residual codes; unclassified (2 sources) Gestation period, 17 weeks; Translations: [17 weeks gestation of ] 06-17-2024 Episodic Residual codes; unclassified (14 sources) Gestation period, 22 weeks; Translations: [22 weeks gestation of ] Onset: 5 07-16-2024 Episodic Residual codes; unclassified (2 sources) Gestation period, 26 weeks; Translations: [26 weeks gestation of ] 08-13-2024 Episodic Residual codes; unclassified (2 sources) Gestation period, 29 weeks; Translations: [29 weeks gestation of ] 09-08-2024 Episodic Residual codes; unclassified (2 sources) Gestation period, 31 weeks; Translations: [31 weeks gestation of ] 09-23-2024 Episodic Spondylosis; intervertebral disc disorders; other back problems [...] Da te Episodic/Chronic Calculus of urinary tract (20 sources) Kidney stone; Translations: [Calculus of kidney] Onset: 09-05-2016 Episodic Deficiency and other anemia (20 sources) Anemia; Translations: [Anemia, unspecified] Onset: 06-18-2023 06-18-2023 Episodic Deficiency and other anemia (20 sources) Iron deficiency anemia secondary to inadequate dietary iron intake; Translations: [Other iron deficiency anemias] Onset: 08-10-2021 06-18-2023 Episodic Other aftercare (1 source) Other 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 (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; Translations: [OTH SKILLED NURSING CURRENT DRUG THERAPY] Onset: 06-09-2021 Episodic Other [...] UNS] Onset: 05-11-2021 Episodic Other gastrointestinal disorders (20 sources) History of bypass of stomach; Translations: [Bariatric surgery status] Onset: 08-10-2021 06-18-2023 Episodic Residual codes; unclassified (1 source) 39 weeks gestation of ; Translations: [39 WEEKS GESTATION OF ] Onset: 06-09-2021 Episodic Residual codes; unclassified (20 sources) Insomnia; Translations: [Insomnia, unspecified] Onset: 06-18-2023 [...] Test Name Value Interpretation Reference Range Facility Urinalysis macro (dipstick) panel (U)on 09-23-2024 Bilirubin, UA Negative Negative - 4(70) +++ mg/dL [facility] Blood, UA Negative Negative - 50 Liam/mcL [facility] Clarity, UA Clear [facility] Color, UA Yellow [facility] Glucose, UA Negative Negative - 2000(110) ++++ mg/dL [facility] Interpretation and review of laboratory results Abnormal [facility] Ketones, UA Negative Negative - 160(16) ++++ mg/dL [facility] Leukocytes, UA Trace Negative - 500+++ Mele/mcL [facility] Nitrite, UA Negative Negative - Positive [facility] pH, UA 7.5 5 - 9 [facility] Protein, UA Negative Negative - 2000(20) ++++ mg/dL [facility] Spec Grav, UA 1.02 1 - 1.03 [facility] Urobilinogen, UA 0.2 0.2 - 12 mg/dL [facility] US OB FOLLOW UP TRANSABDOMIN AL APPROACHon 09-15-2024 US OB FOLLOW UP TRANSABDOMINAL APPROACH EXAM: US OB FOLLOW UP TRANSABDOMINAL APPROACH HISTORY: History of gastric bypass. COMPARISON: Ob ultrasound 07/09/2024. TECHNIQUE: Two-dimensional transabdominal grayscale ultrasound imaging of the pelvis was performed. FINDINGS: Gestation: Single Presentation: Transverse Cardiac Activity: 146 beats per minute Amniotic Fluid Index: 17 cm MEASUREMENTS: BPD: 7.9 cm EGA: 31 weeks 5 days HC: 30.5 cm EGA: 34 weeks 0 days AC: 29.2 cm EGA: 33 weeks 1 days FL: 5.6 cm EGA: 29 weeks 4 days HC/AC Ratio: 1.05 The gestational age by today's ultrasound is 32 weeks 1 days (+/- 16 days gestation). Estimated Weight: 1898 grams, +/- 285 grams ( 4 lb 3 oz). Weight Percentile for gestational age: 83 % IMPRESSION: 1. Single, live intrauterine gestation 30 weeks, 5 days by LMP. Today's ultrasound measurements correlate with a gestational age of 32 weeks 1 days. Estimated weight is 1898 grams, +/- 285 grams ( 4 lb 3 oz) which correlates to 83 %. CALOS is 11/09/2024. Interpreted by: Electronically signed by STARR PALOMINO II, MD, PHD at 15-Sep-2024 10:59:56 PM [facility] Normal Not Available Comment on above: Order Comment: US OB SCAN FOR GROWTH Estimated Date of Delivery: 11/19/24 Gestational Age as of 09/08/2024: 29w5d [facility] CMP (CMP) (FOR REMOTE FH C USE)on 07-22-2024 Albumin [Mass/Vol] 2.9 g/dL Low 3.4 - 5.0 g/dL [facility] ALP [Catalytic activity/Vol] 72 U/L 46 - 116 U/L [facility] ALT [Catalytic activity/Vol] 17 U/L 14 - 59 U/L [facility] Anion gap [Moles/Vol] 11.3 mmol/L [facility] AST [Catalytic activity/Vol] 17 U/L 15 - 37 U/L [facility] Bilirubin [Mass/Vol] 0.2 mg/dL 0.2 - 1 .0 mg/dL [facility] Calcium [Mass/Vol] 8.5 mg/dL 8.5 - 10. 1 mg/dL [facility] Chloride [Moles/Vol] 104 mmol/L 98 - 10 7 mmol/L [facility] CO2 [Moles/Vol] 25.6 mmol/L 21.0 - 32.0 mmol/L [facility] Creatinine [Mass/Vol] 0.49 mg/dL Low 0.55 - 1.02 mg/dL [facility] GFR/1.73 sq M.predicted CKD-EPI (S/P/Bld) [Vol rate/Area] >60 >=60 mL/min/1.73m 2 [facility] Globulin (S) [Mass/Vol] 4.1 g/dL [facility] Glucose [Mass/Vol] 85 mg/dL 74 - 106 mg/dL [facility] Interpretation and review of laboratory results Abnormal [facility] Potassium [Moles/Vol] 3.9 mmol/L 3.5 - 5.1 mmol/L [facility] Protein [Mass/Vol] 7 g/dL 6.4 - 8.2 g/dL [facility] Sodium [Moles/Vol] 137 mmol/L 136 - 145 mmol/L [facility] TBH EGFR-NON AF COLOMBIAN >60 >=60 mL/min/1.73m 2 [facility] Urea nitrogen [Mass/Vol] 10 mg/dL 7.0 - 18.0 mg/dL [facility] Urea nitrogen/Creatinine [Mass ratio] 20.4 mg/mg [facility] [employer], DIRECTon Bilirubin.indirect [Mass/Vol] mg/dL 0.0 - 0.2 mg/dL [facility] No Panel Informationon 07-22 [facility] Urinalysis macro (dipstick) panel (U)on 07-16-2024 Bilirubin, UA Negative Negative - 4(70) +++ mg/dL [facility] Blood, UA Negative Negative - 50 Liam/mcL [facility] Clarity, UA Cloudy [facility] Color, UA Yellow [facility] Glucose, UA 1+ Negative - 2000(110) ++++ mg/dL [facility] Comment on above: 500mg Interpretation and review of laboratory results Abnormal [facility] Ketones, UA Positive Negative - 160(16) ++++ mg/dL [facility] Comment on above: trace Leukocytes, UA Trace Negative - 500+++ Mele/mcL [facility] Nitrite, UA Negative Negative - Positive [facility] pH, UA 7 5 - 9 [facility] Protein, UA Negative Negative - 2000(20) ++++ mg/dL [facility] Spec Grav, UA 1.015 1 - 1.03 [facility] Urobilinogen, UA 0.2 0.2 - 12 mg/dL [facility] US OB 14+ WEEKS ANATOMY SCAN on 07-09-2024 US OB 14+ WEEKS ANATOMY SCAN EXAM: US OB 14+ WEEKS ANATOMY SCAN HISTORY: anatomy. COMPARISON: None available. TECHNIQUE: Two-dimensional transabdominal grayscale ultrasound imaging of the pelvis was performed. FINDINGS: Gestation: Single Presentation: Transverse Cardiac Activity: 141 beats per minute Placental Location: Posterior with no sonographic abnormalities identified. Distance from Placental Tip to Cervix: 4.9 cm Cervical Length: 4.9 cm Amniotic Fluid: Appears adequate MEASUREMENTS: BPD: 4.7 cm EGA: 20 weeks 1 days HC: 18.8 cm EGA: 21 weeks 1 days AC: 15.6 cm EGA: 20 weeks 5 days FL: 3.4 cm EGA: 20 weeks 4 days HC/AC Ratio: 1.21 The gestational age by today's ultrasound is 20 weeks 5 days (+/- 10 days gestation). Estimated Weight: 371 grams, +/- 56 grams ( 0 lb 13 oz). Weight Percentile for gestational age: 29 % ANATOMY C-Spine: Unremarkable T-Spine: Unremarkable L-Spine: Unremarkable Sacrum: Unremarkable Four Chamber Heart: Unremarkable LVOT: Unremarkable RVOT: Unremarkable Stomach: Unremarkable Kidneys: Unremarkable Bladder: Unremarkable Diaphragm: Unremarkable Cord insertion: Unremarkable Cord vessels: Three Lateral Ventricles: Unremarkable Cerebellum: Unremarkable Cisterna Magna: Unremarkable Posterior Fossa: Unremarkable Right Femur: Unremarkable Left Femur: Unremarkable Right Tib/Fib: Unremarkable Left Tib/Fib: Unremarkable Right Rad/Ulnar: Unremarkable Left Rad/Ulnar: Unremarkable Right Humerus: Unremarkable Left Humerus: Unremarkable Nose/Lips: Unremarkable Orbits: Unremarkable IMPRESSION: 1. Single, live intrauterine gestation 21 weeks, 0 days by LMP. Today's ultrasound measurements correlate with a gestational age of 20 weeks 5 days. Estimated weight is 371 grams, +/- 56 grams ( 0 lb 13 oz) which correlates to 29 %. CALOS is 11/21/2024. 2. Unremarkable ultrasound of the anatomy. Electronically Signed: Electronically Signed:Electronicall y signed by STARR PALOMINO II, MD, PHD at 11-Jul-2024 06:17:29 PM [facility] Normal Not Available Comment on above: Order Comment: US OB ANATOMY SINGLE W US OB CERVICAL LENGTH Estimated Date of Delivery: 11/19/24 Gestational Age as of 06/17/2024: 17w6d Urinalysis macro (dipstick) panel (U)on 06-17-2024 Bilirubin, UA Negative Negative - 4(70) +++ mg/dL [facility] Blood, UA Negative Negative - 50 Liam/mcL [facility] Clarity, UA Clear [facility] Color, UA Yellow [facility] Glucose, UA Negative Negative - 2000(110) ++++ mg/dL [facility] Interpretation and review of laboratory results Abnormal [facility] Ketones, UA Negative Negative - 160(16) ++++ mg/dL [facility] Leukocytes, UA Positive Negative - 500+++ Mele/mcL [facility] Comment on above: small Nitrite, UA Negative Negative - Positive [facility] pH, UA 7 5 - 9 [facility] Protein, UA Positive Negative - 1999(20) ++++ mg/dL [facility] Comment on above: 30 mg Spec Grav, UA 1.015 1 - 1.03 [facility] Urobilinogen, UA 0.2 0.2 - 12 mg/dL [facility] Urinalysis macro (dipstick) panel (U)on 05-20-2024 Bilirubin, UA Negative Negative - 4(70) +++ mg/dL [facility] Blood, UA Negative Negative - 50 Liam/mcL [facility] Clarity, UA Clear [facility] Color, UA Yellow [facility] Glucose, UA Negative Negative - 1999(110) ++++ mg/dL [facility] Interpretation and review of laboratory results Normal [facility] Ketones, UA Negative Negative - 160(16) ++++ mg/dL [facility] Leukocytes, UA Negative Negative - 500+++ Mele/mcL [facility] Nitrite, UA Negative Negative - Positive [facility] pH, UA 5.5 5 - 9 [facility] Protein, UA Negative Negative - 1999(20) ++++ mg/dL [facility] Spec Grav, UA 1.03 1 - 1.03 [facility] Urobilinogen, UA 0.2 0.2 - 12 mg/dL [facility] BOX TESTon 05-11-2024 BOX TEST SENT OUT [facility] BOX1 [facility] B[address] 05/11/2024 [facility] HCG ( test) Ql (U)o n 04-17-2024 Interpretation and review of laboratory results Abnormal [facility] Preg Test, Ur Positive Negative [facility] Urinalysis macro (dipstick) panel (U)on 04-17-2024 Bilirubin, UA Negative Negative - 4(70) +++ mg/dL [facility] Blood, UA Negative Negative - 50 Liam/mcL [facility] Clarity, UA Clear [facility] Color, UA Yellow [facility] Glucose, UA Negative Negative - 1999(110) ++++ mg/dL [facility] Interpretation and review of laboratory results Normal [facility] Ketones, UA Negative Negative - 160(16) ++++ mg/dL [facility] Leukocytes, UA Negative Negative - 500+++ Mele/mcL [facility] Nitrite, UA Negative Negative - Positive [facility] pH, UA 6.5 5 - 9 [facility] Protein, UA Negative Negative - 1999(20) ++++ mg/dL [facility] Spec Grav, UA 1.02 1 - 1.03 [facility] Urobilinogen, UA 0.2 0.2 - 12 mg/dL [facility] ALL CBC WITH AUTO DIFFon BASOPHILS ABSOLUTE AUTO 0.1 [facility] Basophils/100 WBC (Bld) 0.6 % 0.2 - 2.0 % [facility] Eosinophils/100 WBC (Bld) 0.9 % 0.9 - 7.0 % [facility] Erythrocyte distribution width (RBC) [Ratio] 12.4 % 11.0 - 15.0 % [facility] Hematocrit (Bld) [Volume fraction] 43.7 % 36.0 - 48.0 % [facility] Hemoglobin (Bld) [Mass/Vol] 14.4 g/dL 12.0 - 16.0 g/dL [facility] IMMATURE GRANULOCYTES ABS AUTO 0.03 [facility] Immature granulocytes/100 WBC (Bld) 0.3 % 0.0 - 0.5 % [facility] Interpretation and review of laboratory results Abnormal [facility] LYMPHOCYTES ABSOLUTE AUTO 4.2 High [facility] Lymphocytes/100 WBC (Bld) 38.1 % 20.5 - 60.0 % [facility] MCH (RBC) [Entitic mass] 28.5 pg 26.7 - 34.0 pg [facility] MCHC (RBC) [Mass/Vol] 33.0 g/dL 29.9 - 35.2 g/dL [facility] MCV (RBC) [Entitic vol] 86.4 fL 81.0 - 99.0 fL [facility] MONOCYTES ABSOLUTE AUTO 0.7 [facility] Monocytes/100 WBC (Bld) 6.2 % 1.7 - 12.0 % [facility] NEUTROPHILS ABSOLUTE AUTO 5.9 [facility] Neutrophils/100 WBC (Bld) 53.9 % 43.0 - 75.0 % [facility] Platelet mean volume (Bld) [Entitic vol] 9.8 fL 9.5 - 13.5 fL [facility] TBH EO # 0.1 [facility] PLT 430 [facility] RBC 5.06 [facility] WBC 11.0 [facility] CT ABDOMEN PELVIS WO IV CONT Luzmaria 01-16-2024 CT ABDOMEN PELVIS WO IV CONTRAST [...] report is generated using voice recognition reporting ([employer]). On occasion [employer] erroneously drops words from the report or replaces the spoken word with similar sounding words. Please call with any questions/concerns regarding this report.* Dictated and transcribed 01/17/2024/anna Preliminary report sent to [facility] on 01/17/2024 at 9:45 a.m. Nikkie confirmed doctor has report in hand. This report has been electronically signed and approved by the interpreting radiologist. Electronically Signed Ab Retana M.D. 2024-01-17 11:31:48 Normal Not Available Comment on above: Order Comment: PEKVI C PAIN, PRESSURE, HEMATURIA, HX KIDNEY STONES Bacteria identified Cx Nom ( U)on 01-11-2024 Appearance (U) Adequate [facility] Internal identifier for Provider [id number] [facility] Specimen source Nom (Unsp spec) URINE [facility] Healthcare STATUS FINAL [facility] Laboratory - Microbiology an d Antimicrobial susceptibilityon 01-11-2024 Bacteria identified Cx Nom (U) SEE NOTE [facility] Comment on above: Less than 10,000 CFU/mL of single Gram negative organism isolated. No further testing will be performed. If clinically indicated, recollection using a method to minimize contamination, with prompt transfer to Urine Culture Transport Tube, is recommended. Laboratory - Miscellaneous t estson 01-11-2024 Service comment (Unsp spec) [Interp] [facility] Comment on above: This urine was sanju zed for the presence of WBC, RBC, bacteria, casts, and other formed elements. Only those elements seen were reported. No Panel Informationon 01-10 Performing Organization Information Site ID: QPT Name: [facility] Address: [address] [place] [address], [address] [place] [phone] Director: Brenden Conde MD [facility] Urinalysis complete panel (U )on 01-11-2024 Appearance (U) CLEAR CLEAR [facility] Bacteria LM.HPF (Urine sed) [#/Area] NONE SEEN NONE SEEN /HPF [facility] Bilirubin Ql (U) Negative NEGATIVE [facility] Color (U) YELLOW YELLOW [facility] Epithelial cells.squamous LM.HPF (Urine sed) [#/Area] 0-5 < OR = 5 /[facility]PF [facility] Glucose Ql (U) Negative NEGATIVE [facility] Hemoglobin Ql (U) Negative NEGATIVE [facility] Hyaline casts (Urine sed) [#/Area] NONE SEEN NONE SEEN /LPF [facility] Interpretation and review of laboratory results Abnormal [facility] Ketones Ql (U) Negative NEGATIVE [facility] Leukocyte esterase Test strip Ql (U) 1+ Abnormal NEGATIVE [facility] Nitrite Ql (U) Negative NEGATIVE [facility] pH (U) 7.0 [pH] 5.0 - 8.0 [facility] Protein Ql (U) Negative NEGATIVE [facility] RBC LM.HPF (Urine sed) [#/Area] 3-10 Abnormal < OR = 2 /HPF [facility] Specific gravity (U) [Rel density] 1.015 1.001 - 1.035 [facility] WBC LM.HPF (Urine sed) [#/Area] 0-5 < OR = 5 /HPF [facility] Urinalysis macro (dipstick) panel (U)on 01-09-2024 Bilirubin, UA Negative Negative - 4(70) +++ mg/dL [facility] Blood, UA Positive Negative - 50 Liam/mcL [facility] Clarity, UA Clear [facility] Color, UA Light Yellow [facility] Glucose, UA Negative Negative - 1999(110) ++++ mg/dL [facility] Interpretation and review of laboratory results Abnormal [facility] Ketones, UA Negative Negative - 160(16) ++++ mg/dL [facility] Leukocytes, UA 1+ Negative - 500+++ Mele/mcL [facility] Nitrite, UA Negative Negative - Positive [facility] pH, UA 6.0 5 - 9 [facility] Protein, UA Trace Negative - 1999(20) ++++ mg/dL [facility] Spec Grav, UA 1.020 1 - 1.03 [facility] Urobilinogen, UA 1.0 0.2 - 12 mg/dL [facility] Physician Orderon 03-26-2023 Physician Order [id number] #[id number] Normal [facility] Formson 09-13-2022 Forms [id number] #1.00CD:127 Normal [facility] XR KUB 1 VIEWon 04-09-2022 XR KUB [...] by: GENARO RODRÍGUEZ Date: 2022-04-09 18:02 Normal [facility] VITAMIN B1 (THIAMINE)on Vit. B1, Whole Blood 117.7 nmol/L Normal 66.5-200.0 [facility] Comment on above: Performed By: #### C VDTBH #### [facility] [address] [place] [address] Dr. Kerrie Russell CBC AUTO DIFFon 02-28-2022 BASO # 0.1 103/ul Normal 0.0-0.1 [facility] Comment on above: Performed By: #### C BC #### [facility] [address] [place] [address] Dr. Kerrie Russell Basophils/100 WBC (Bld) 0.6 % Normal 0.2-2.0 [facility] Comment on above: Performed By: #### C BC #### [facility] [address] [place] [address] Dr. Kerrie Russell EO # 0.1 103/ul Normal 0.0-0.7 [facility] Comment on above: Performed By: #### C BC #### [facility] [address] [place] [address] Dr. Kerrie Russell Eosinophils/100 WBC (Bld) 1.3 % Normal 0.9-7.0 [facility] Comment on above: Performed By: #### C BC #### [facility] [address] [place] [address] Dr. Kerrie Russell Erythrocyte distribution width (RBC) [Ratio] 13.2 % Normal 11.0-15.0 [facility] Comment on above: Performed By: #### C BC #### [facility] [address] [place] [address] Dr. Kerrie Russell Hematocrit (Bld) [Volume fraction] 40.6 % Normal 36.0-48.0 [facility] Comment on above: Performed By: #### C BC #### [facility] [address] [place] [address] Dr. Kerrie Russell Hemoglobin (Bld) [Mass/Vol] 13.8 g/dL Normal 12.0-16.0 [facility] Comment on above: Performed By: #### C BC #### [facility] [address] [place] [address] Dr. Kerrie Russell IG # 0.02 10e3/ul Normal 0.00-0.03 [facility] Comment on above: Performed By: #### C BC #### [facility] [address] [place] [address] Dr. Kerrie Russell IG % 0.2 % Normal 0.0-0.5 [facility] Comment on above: Performed By: #### C BC #### [facility] [address] [place] [address] Dr. Kerrie Russell LYMPH # 4.3 103/ul Critically high 1.2-3.8 [facility] Comment on above: Performed By: #### C BC #### [facility] [address] [place] [address] Dr. Kerrie Russell Lymphocytes/100 WBC (Bld) 49.2 % Normal 20.5-60.0 [facility] Comment on above: Performed By: #### C BC #### [facility] [address] [place] [address] Dr. Kerrie Russell MANUAL DIFF REQ NO Normal [facility] Comment on above: Performed By: #### C BC #### [facility] [address] [place] [address] Dr. Kerrie Russell MCH (RBC) [Entitic mass] 28.3 pg Normal 26.7-34.0 [facility] Comment on above: Performed By: #### C BC #### [facility] [address] [place] [address] Dr. Kerrie Russell MCHC (RBC) [Mass/Vol] 34.0 g/dL Normal 29.9-35.2 [facility] Comment on above: Performed By: #### C BC #### [facility] [address] [place] [address] Dr. Kerrie Russell MCV (RBC) [Entitic vol] 83.2 fL Normal 81.0-99.0 [facility] Comment on above: Performed By: #### C BC #### [facility] [address] [place] [address] Dr. Kerrie Russell MONO # 0.5 103/ul Normal 0.3-0.8 [facility] Comment on above: Performed By: #### C BC #### [facility] [address] [place] [address] Dr. Kerrie Russell Monocytes/100 WBC (Bld) 5.9 % Normal 1.7-12.0 [facility] Comment on above: Performed By: #### C BC #### [facility] [address] [place] [address] Dr. Kerrie Russell NEUT # 3.7 103/ul Normal 1.4-6.5 [facility] Comment on above: Performed By: #### C BC #### [facility] [address] [place] [address] Dr. Kerrie Russell Neutrophils/100 WBC (Bld) 42.8 % Critically low 43.0-75.0 [facility] Comment on above: Performed By: #### C BC #### [facility] [address] [place] [address] Dr. Kerrie Russell Platelet mean volume (Bld) [Entitic vol] 9.6 fL Normal 9.5-13.5 [facility] Comment on above: Performed By: #### C BC #### [facility] [address] [address] [address] Kerrie Russell PLT 403 103/ul Normal 150-450 [facility] Comment on above: Performed By: #### C BC #### [facility] [address] [place] [address] Dr. Kerrie Russell RBC 4.88 106/ul Normal 4.20-5.40 [facility] Comment on above: Performed By: #### C BC #### [facility] [address] [place] [address] Dr. Kerrie Russell WBC 8.7 103/ul Normal 4.0-11.0 [facility] Comment on above: Performed By: #### C BC #### [facility] [address] [place] [address] Dr. Kerrie Russell FERRITINon 02-28-2022 Ferritin [Mass/Vol] 73.0 ng/mL Normal 6.2-137.0 [facility] Comment on above: Performed By: #### P HOS, MG, CMP #### [facility] [address] [place] [address] Dr. Kerrie Russell IRON AND TIBCon 02-28-2022 % SATURATION 12.4 % Normal [facility] Comment on above: Performed By: #### P HOS, MG, CMP #### [facility] [address] [place] [address] Dr. Kerrie Russell Iron [Mass/Vol] 44.0 ug/dL Critically low 50.0-170.0 [facility] Comment on above: Performed By: #### P HOS, MG, CMP #### [facility] [address] [place] [address] Dr. Kerrie Russell TIBC DIRECT 354.0 ug/dL Normal 250.0-450.0 [facility] Comment on above: Performed By: #### P HOS, MG, CMP #### [facility] [address] [place] [address] Dr. Kerrie Russell MAGNESIUMon 02-28-2022 Magnesium [Mass/Vol] 1.9 mg/dL Normal 1.8-2.4 [facility] Comment on above: Performed By: #### M Daisha PHOS, CMP #### [facility] [address] [place] [address] Dr. Kerrie Russell PHOSPHORUSon 02-28-2022 Phosphate [Mass/Vol] 3.7 mg/dL Normal 2.6-4.7 [facility] Comment on above: Performed By: #### Bryan Ashton PHOS, CMP #### [facility] [address] [place] [address] Dr. Kerrie Russell PROF 14(COMP METB)on 022 Albumin [Mass/Vol] 3.9 g/dL Normal 3.4-5.0 [facility] Comment on above: Performed By: #### SUZANNE Cook, CMP #### [facility] [address] [place] [address] Dr. Kerrie Russell Albumin/Globulin [Mass ratio] 1.1 {ratio} Normal [facility] Comment on above: Performed By: #### NATHALY CookS, CMP #### [facility] [address] [place] [address] Dr. Kerrie Russell ALP [Catalytic activity/Vol] 99 U/L Normal 46-116 [facility] Comment on above: Performed By: #### NATHALY CookS, CMP #### [facility] [address] [place] [address] Dr. Kerrie Russell ALT [Catalytic activity/Vol] 32 U/L Normal 14-59 [facility] Comment on above: Performed By: #### NATHALY CookS, CMP #### [facility] [address] [place] [address] Dr. Kerrie Russell Anion gap [Moles/Vol] 9.3 mmol/L Normal [facility] Comment on above: Performed By: #### Brayn Ashton PHOS, CMP #### [facility] [address] [place] [address] Dr. Kerrie Russell AST [Catalytic activity/Vol] 17 U/L Normal 15-37 [facility] Comment on above: Performed By: #### Bryan Ashton PHOS, CMP #### [facility] [address] [address] [address] Kerrie Russell Bilirubin [Mass/Vol] 0.2 mg/dL Normal 0.2-1.0 [facility] Comment on above: Performed By: #### NATHALY CookS, CMP #### [facility] [address] [place] [address] Dr. Kerrie Russell Calcium [Mass/Vol] 8.5 mg/dL Normal 8.5-10.1 [facility] Comment on above: Performed By: #### Bryan Ashton PHOS, CMP #### [facility] [address] [address] [address] Kerrie Russell Chloride [Moles/Vol] 107 mmol/L Normal 98-107 [facility] Comment on above: Performed By: #### NATHALY CookS, CMP #### [facility] [address] [place] [address] Dr. Kerrie Russell CO2 [Moles/Vol] 27.0 mmol/L Normal 21.0-32.[address] [facility] Comment on above: Performed By: #### NATHALY CookS, CMP #### [facility] [address] [place] [address] Dr. Kerrie Russell Creatinine [Mass/Vol] 0.65 mg/dL Normal 0.55-1.02 [facility] Comment on above: Performed By: #### NATHALY CookS, CMP #### [facility] [address] [place] [address] Dr. Kerrie Russell EGFR-AF COLOMBIAN >60 Normal >=60 The [facility] Comment on above: Performed By: #### Bryan Ashton PHOS, CMP #### [facility] [address] [place] [address] Dr. Kerrie Russell EGFR-NON AF COLOMBIAN >60 Normal >=60 [facility] Comment on above: Performed By: #### Bryan Ashton PHOS, CMP #### [facility] [address] [place] [address] Dr. Kerrie Russell Globulin (S) [Mass/Vol] 3.6 g/dL Normal [facility] Comment on above: Performed By: #### Bryan Ashton PHOS, CMP #### [facility] [address] [address] [address] Kerrie Russell Glucose [Mass/Vol] 89 mg/dL Normal 74-106 [facility] Comment on above: Performed By: #### M G, PHOS, CMP #### [facility] [address] [address] [address] Kerrie Russell Potassium [Moles/Vol] 3.3 mmol/L Critically low 3.5-5.1 [facility] Comment on above: Performed By: #### M G, PHOS, CMP #### [facility] [address] [place] [address] Dr. Kerrie Russell Protein [Mass/Vol] 7.5 g/dL Normal 6.4-8.2 [facility] Comment on above: Performed By: #### M G, PHOS, CMP #### [facility] [address] [place] [address] Dr. Kerrie Russell Sodium [Moles/Vol] 140 mmol/L Normal 136-145 [facility] Comment on above: Performed By: #### M G, PHOS, CMP #### [facility] [address] [place] [address] Dr. Kerrie Russell Urea nitrogen [Mass/Vol] 9.0 mg/dL Normal 7.0-18.0 [facility] Comment on above: Performed By: #### M G, PHOS, CMP #### [facility] [address] [place] [address] Dr. Kerrie Russell Urea nitrogen/Creatinine [Mass ratio] 13.8 mg/mg Normal [facility] Comment on above: Performed By: #### M G, PHOS, CMP #### [facility] [address] [place] [address] Dr. Kerrie Russell VIT B12 AND FOLATEon 022 Cobalamin (Vitamin B12) [Mass/Vol] 538.0 pg/mL Normal 193.0-986.0 [facility] Comment on above: Performed By: #### P HOS, MG, CMP #### [facility] [address] [address] [address] Kerrie Russell FOLATE 8.50 ng/mL Critically low 8.60-58.90 [facility] Comment on above: Performed By: #### P HOS, MG, CMP #### [facility] [address] [place] [address] Dr. Kerrie Russell VITAMIN D 25 OHon 02-28-2022 VIT D 25-OH 33.0 ng/mL Normal [facility] Comment on above: Performed By: #### P HOS, MG, CMP #### [facility] [address] [address] [address] Kerrie Russell VIT D RANGES SEE BELOW Normal [facility] Comment on above: Result Comment: <20 ng/mL Vit D deficient 20 - <30 ng/mL Vit D insufficient 30 - 100 ng/mL Vit D sufficient >100 ng/mL Potential Toxicity Performed By: #### P HOS, MG, CMP #### [facility] [address] [place] [address] Dr. Kerrie Russell [facility]on SARS-CoV-2 (COVID-19) RNA DEZ+probe Ql (Unsp spec) Not detected Normal NOT DETECTED [facility] Comment on above: Result Comment: This test is not yet approved or cleared by the [place] FDA. When there are no FDA-approved or cleared tests available, and other criteria are met, FDA can make tests available under an emergency access mechanism called an Emergency Use Authorization (EUA). The EUA for this test is supported by the [place] of Health and Human Service's (HHS's) declaration [...] consistent with SARS-CoV-2. Performed By: #### C VDTBH #### [facility] [address] [place] [address] Dr. Kerrie Russell [facility]on SARS-CoV-2 (COVID-19) RNA DEZ+probe Ql (Unsp spec) Not detected Normal NOT DETECTED [facility] Comment on above: Result Comment: This test is not yet approved or cleared by the [place] FDA. When there are no FDA-approved or cleared tests available, and other criteria are met, FDA can make tests available under an emergency access mechanism called an Emergency Use Authorization (EUA). The EUA for this test is supported by the [place] of Health and Human Service's (HHS's) declaration [...] By: #### P HOS, MG, CMP #### [facility] [address] [place] [address] Dr. Kerrie Russell VITAMIN B1 (THIAMINE)on 07-29 Vit. B1, Whole Blood 118.6 nmol/L Normal 66.5-200.0 [facility] Comment on above: Performed By: #### C VDTBH #### [facility] [address] [place] [address] Dr. Kerrie Russell CBC AUTO DIFFon 08-11-2021 BASO # 0.0 103/ul Normal 0.0-0.1 [facility] Comment on above: Performed By: #### P HOS, MG, CMP #### [facility] [address] [place] [address] Dr. Kerrie Russell Basophils/100 WBC (Bld) 0.3 % Normal 0.2-2.0 [facility] Comment on above: Performed By: #### P HOS, MG, CMP #### [facility] [address] [place] [address] Dr. Kerrie Russell EO # 0.1 103/ul Normal 0.0-0.7 [facility] Comment on above: Performed By: #### P HOS, MG, CMP #### [facility] [address] [place] [address] Dr. Kerrie Russell Eosinophils/100 WBC (Bld) 1.5 % Normal 0.9-7.0 [facility] Comment on above: Performed By: #### P HOS, MG, CMP #### [facility] [address] [place] [address] Dr. Kerrie Russell Erythrocyte distribution width (RBC) [Ratio] 15.9 % Critically high 11.0-15.0 [facility] Comment on above: Performed By: #### P HOS, MG, CMP #### [facility] [address] [place] [address] Dr. Kerrie Russell Hematocrit (Bld) [Volume fraction] 34.2 % Critically low 36.0-48.0 [facility] Comment on above: Performed By: #### P HOS, MG, CMP #### [facility] [address] [place] [address] Dr. Kerrie Russell Hemoglobin (Bld) [Mass/Vol] 10.1 g/dL Critically low 12.0-16.0 [facility] Comment on above: Performed By: #### P HOS, MG, CMP #### [facility] [address] [place] [address] Dr. Kerrie Russell IG # 0.03 10e3/ul Normal 0.00-0.03 [facility] Comment on above: Performed By: #### P HOS, MG, CMP #### [facility] [address] [place] [address] Dr. Kerrie Russell IG % 0.3 % Normal 0.0-0.5 [facility] Comment on above: Performed By: #### P HOS, MG, CMP #### [facility] [address] [place], [place] [id number] Dr. Kerrie Russell LYMPH # 3.3 103/ul Normal 1.2-3.8 [facility] Comment on above: Performed By: #### P HOS, MG, CMP #### [facility] [address] [place] [address] Dr. Kerrie Russell Lymphocytes/100 WBC (Bld) 37.2 % Normal 20.5-60.0 [facility] Comment on above: Performed By: #### P HOS, MG, CMP #### [facility] [address] [place] [address] Dr. Kerrie Russell MANUAL DIFF REQ NO Normal [facility] Comment on above: Performed By: #### P HOS, MG, CMP #### [facility] [address] [place] [address] Dr. Kerrie Russell MCH (RBC) [Entitic mass] 20.7 pg Critically low 26.7-34.0 [facility] Comment on above: Performed By: #### P HOS, MG, CMP #### [facility] [address] [place] [address] Dr. Kerrie Russell MCHC (RBC) [Mass/Vol] 29.5 g/dL Critically low 29.9-35.2 [facility] Comment on above: Performed By: #### P HOS, MG, CMP #### [facility] [address] [place] [address] Dr. Kerrie Russell MCV (RBC) [Entitic vol] 70.1 fL Critically low 81.0-99.0 [facility] Comment on above: Performed By: #### P HOS, MG, CMP #### [facility] [address] [place] [address] Dr. Kerrie Russell MONO # 0.6 103/ul Normal 0.3-0.8 [facility] Comment on above: Performed By: #### P HOS, MG, CMP #### [facility] [address] [place] [address] Dr. Kerrie Russell Monocytes/100 WBC (Bld) 7.3 % Normal 1.7-12.0 [facility] Comment on above: Performed By: #### P HOS, MG, CMP #### [facility] [address] [address] [address] Kerrie Russell NEUT # 4.7 103/ul Normal 1.4-6.5 [facility] Comment on above: Performed By: #### P HOS, MG, CMP #### [facility] [address] [place] [address] Dr. Kerrie Russell Neutrophils/100 WBC (Bld) 53.4 % Normal 43.0-75.0 [facility] Comment on above: Performed By: #### P HOS, MG, CMP #### [facility] [address] [place] [address] Dr. Kerrie Russell Platelet mean volume (Bld) [Entitic vol] 9.1 fL Critically low 9.5-13.5 [facility] Comment on above: Performed By: #### P HOS, MG, CMP #### [facility] [address] [place] [address] Dr. Kerrie Russell PLT 339 103/ul Normal 150-450 [facility] Comment on above: Performed By: #### P HOS, MG, CMP #### [facility] [address] [place] [address] Dr. Kerrie Russell RBC 4.88 106/ul Normal 4.20-5.40 [facility] Comment on above: Performed By: #### P HOS, MG, CMP #### [facility] [address] [place] [address] Dr. Kerrie Russell WBC 8.8 103/ul Normal 4.0-11.0 [facility] Comment on above: Performed By: #### P HOS, MG, CMP #### [facility] [address] [place] [address] Dr. Kerrie Russell FERRITINon 08-11-2021 Ferritin [Mass/Vol] 4.0 ng/mL Critically low 6.2-137.0 [facility] Comment on above: Performed By: #### C VDTBH #### [facility] [address] [place] [address] Dr. Kerrie Russell IRON AND TIBCon 08-11-2021 % SATURATION 3.7 % Normal [facility] Comment on above: Performed By: #### C VDTBH #### [facility] [address] [place] [address] Dr. Kerrie Russell Iron [Mass/Vol] 19.0 ug/dL Critically low 37.0-170.0 [facility] Comment on above: Performed By: #### C VDTBH #### [facility] [address] [place] [address] Dr. Kerrie Russell TIBC DIRECT 513.0 ug/dL Critically high 261.0-497.0 [facility] Comment on above: Performed By: #### C VDTBH #### [facility] [address] [place] [address] Dr. Kerrie Russell MAGNESIUMon 08-11-2021 Magnesium [Mass/Vol] 2.0 mg/dL Normal 1.6-2.3 [facility] Comment on above: Performed By: #### P HOS, MG, CMP #### [facility] [address] [place] [address] Dr. Kerrie Russell PHOSPHORUSon 08-11-2021 Phosphate [Mass/Vol] 4.8 mg/dL Critically high 2.5-4.5 [facility] Comment on above: Performed By: #### P HOS, MG, CMP #### [facility] [address] [place] [address] Dr. Kerrie Russell PROF 14(COMP METB)on 022 Albumin [Mass/Vol] 3.8 g/dL Normal 3.4-5.0 [facility] Comment on above: Performed By: #### P HOS, MG, CMP #### [facility] [address] [place] [address] Dr. Kerrie Russell Albumin/Globulin [Mass ratio] 0.9 {ratio} Normal [facility] Comment on above: Performed By: #### P HOS, MG, CMP #### [facility] [address] [place] [address] Dr. Kerrie Russell ALP [Catalytic activity/Vol] 74 U/L Normal 46-116 [facility] Comment on above: Performed By: #### P HOS, MG, CMP #### [facility] [address] [address] [address] Kerrie Russell ALT [Catalytic activity/Vol] 15 U/L Normal 14-59 [facility] Comment on above: Performed By: #### P HOS, MG, CMP #### [facility] [address] [address] [address] Kerrie Russell Anion gap [Moles/Vol] 13.3 mmol/L Normal [facility] Comment on above: Performed By: #### P HOS, MG, CMP #### [facility] [address] [address] [address] Kerrie Russell AST [Catalytic activity/Vol] 11 U/L Critically low 15-37 [facility] Comment on above: Performed By: #### P HOS, MG, CMP #### [facility] [address] [address] [address] Kerrie Russell Bilirubin [Mass/Vol] 0.2 mg/dL Normal 0.2-1.3 [facility] Comment on above: Performed By: #### P HOS, MG, CMP #### [facility] [address] [address] [address] Kerrie Russell Calcium [Mass/Vol] 8.3 mg/dL Critically low 8.5-10.1 [facility] e [facility] Comment on above: Performed By: #### P HOS, MG, CMP #### [facility] [address] [address] [address] Kerrie Russell Chloride [Moles/Vol] 104 mmol/L Normal 98-107 [facility] Comment on above: Performed By: #### P HOS, MG, CMP #### [facility] [address] [address] [address] Kerrie Russell CO2 [Moles/Vol] 26.5 mmol/L Normal 22.0-30.[address] [facility] Comment on above: Performed By: #### P HOS, MG, CMP #### [facility] [address] [address] [address] Kerrie Russell Creatinine [Mass/Vol] 0.60 mg/dL Normal 0.52-1.04 [facility] Comment on above: Performed By: #### P HOS, MG, CMP #### [facility] [address] [place] [address] Dr. Kerrie Russell EGFR-AF COLOMBIAN >60 Normal >=[address] [facility] Comment on above: Performed By: #### P HOS, MG, CMP #### [facility] [address] [place] [address] Dr. Kerrie Russell EGFR-NON AF COLOMBIAN >60 Normal >=60 [facility] Comment on above: Performed By: #### P HOS, MG, CMP #### [facility] [address] [place] [address] Dr. Kerrie Russell Globulin (S) [Mass/Vol] 4.1 g/dL Normal [facility] Comment on above: Performed By: #### P HOS, MG, CMP #### [facility] [address] [place] [address] Dr. Kerrie Russell Glucose [Mass/Vol] 93 mg/dL Normal 74-106 [facility] Comment on above: Performed By: #### P HOS, MG, CMP #### [facility] [address] [place] [address] Dr. Kerrie Russell Potassium [Moles/Vol] 3.8 mmol/L Normal 3.4-5.0 [facility] Comment on above: Performed By: #### P HOS, MG, CMP #### [facility] [address] [place] [address] Dr. eKrrie Russell Protein [Mass/Vol] 7.9 g/dL Normal 6.1-8.2 [facility] Comment on above: Performed By: #### P HOS, MG, CMP #### [facility] [address] [place] [address] Dr. Kerrie Russell Sodium [Moles/Vol] 140 mmol/L Normal 137-145 [facility] Comment on above: Performed By: #### P HOS, MG, CMP #### [facility] [address] [place] [address] Dr. Kerrie Russell Urea nitrogen [Mass/Vol] 14.0 mg/dL Normal 7.0-18.0 [facility] Comment on above: Performed By: #### P HOS, MG, CMP #### [facility] [address] [place] [address] Dr. Kerrie Russell Urea nitrogen/Creatinine [Mass ratio] 23.3 mg/mg Normal [facility] Comment on above: Performed By: #### P HOS, MG, CMP #### [facility] [address] [place] [address] Dr. Kerrie Russell VIT B12 AND FOLATEon 022 Cobalamin (Vitamin B12) [Mass/Vol] 546.0 pg/mL Normal 239.0-931.0 [facility] Comment on above: Performed By: #### C VDTBH #### [facility] [address] [place] [address] Dr. Kerrie Russell FOLATE 17.80 ng/mL Normal >=2.76 [facility] Comment on above: Performed By: #### C VDTBH #### [facility] [address] [place] [address] Dr. Kerrie Russell VITAMIN D 25 OHon 08-11-2021 VIT D 25-OH 35.1 ng/mL Normal [facility] Comment on above: Performed By: #### C VDTBH #### [facility] [address] [place] [address] Dr. Kerrie Russell VIT D RANGES SEE BELOW Normal [facility] Comment on above: Result Comment: <20 ng/mL Vit D deficient 20 - <30 ng/mL Vit D insufficient 30 - 100 ng/mL Vit D sufficient >100 ng/mL Potential Toxicity Performed By: #### C VDTBH #### [facility] [address] [place] [address] Dr. Kerrie Russell XR KUB 1 VIEWon [...] MELLISSA SEGAL Date: 2021-08-11 09:44 Normal [facility] Complete Blood Count with Au to Diffon 07-12-2021 Basophils (Bld) [#/Vol] 0.01 10*3/uL Normal 0.00-0.20 [facility] Comment on above: Performed By: #### F ERR, CBCAD, FE Prof, smear, CMP #### [facility] [address], [place] [id number] Basophils/100 WBC (Bld) 0.2 % Normal [facility] Comment on above: Performed By: #### F ERR, CBCAD, FE Prof, smear, CMP #### [facility] [address], [place] [id number] Eosinophils (Bld) [#/Vol] 0.14 10*3/uL Normal 0.02-0.50 [facility] Comment on above: Performed By: #### F ERR, CBCAD, FE Prof, smear, CMP #### [facility] [address], [place] [id number] Eosinophils/100 WBC (Bld) 2.8 % Normal [facility] Comment on above: Performed By: #### F ERR, CBCAD, FE Prof, smear, CMP #### [facility] [address], [place] [id number] Erythrocyte distribution width (RBC) [Ratio] 17.0 % High 11.0-15.0 [facility] Comment on above: Performed By: #### F ERR, CBCAD, FE Prof, smear, CMP #### [facility] [address], [place] [id number] Hematocrit (Bld) [Volume fraction] 34.8 % Low 35.0-47.0 [facility] Comment on above: Performed By: #### F ERR, CBCAD, FE Prof, smear, CMP #### [facility] [address], [place] [id number] Hemoglobin (Bld) [Mass/Vol] 9.8 g/dL Low 11.6-15.5 [facility] Comment on above: Performed By: #### F ERR, CBCAD, FE Prof, smear, CMP #### [facility] [address], [place] [id number] Lymphocytes (Bld) [#/Vol] 2.1 10*3/uL Normal 0.9-3.9 [facility] Comment on above: Performed By: #### F ERR, CBCAD, FE Prof, smear, CMP #### [facility] [address], [place] [id number] Lymphocytes/100 WBC (Bld) 42.3 % Normal [facility] Comment on above: Performed By: #### F ERR, CBCAD, FE Prof, smear, CMP #### [facility] [address], [place] [id number] MCH (RBC) [Entitic mass] 20.3 pg Low 27.0-33.0 [facility] Comment on above: Performed By: #### F ERR, CBCAD, FE Prof, smear, CMP #### [facility] [address], [place] [id number] MCHC (RBC) [Mass/Vol] 28.2 g/dL Low 32.0-36.0 [facility] Comment on above: Performed By: #### F ERR, CBCAD, FE Prof, smear, CMP #### [facility] [address], [place] [id number] MCV (RBC) [Entitic vol] 72 fL Low 80-100 [facility] Comment on above: Performed By: #### F ERR, CBCAD, FE Prof, smear, CMP #### [facility] [address], [place] [id number] Monocytes (Bld) [#/Vol] 0.6 10*3/uL Normal 0.2-0.9 [facility] Comment on above: Performed By: #### F ERR, CBCAD, FE Prof, smear, CMP #### [facility] [address], [place] [id number] Monocytes/100 WBC (Bld) 11.4 % Normal [facility] Comment on above: Performed By: #### F ERR, CBCAD, FE Prof, smear, CMP #### [facility] [address], [place] [id number] Neutrophils (Bld) [#/Vol] 2.1 10*3/uL Normal 1.5-7.8 [facility] Comment on above: Performed By: #### F ERR, CBCAD, FE Prof, smear, CMP #### [facility] [address], [place] [id number] Neutrophils/100 WBC (Bld) 42.9 % Normal [facility] Comment on above: Performed By: #### F ERR, CBCAD, FE Prof, smear, CMP #### [facility] [address], [place] [id number] Platelet mean volume (Bld) [Entitic vol] 10.10 fL Normal 7.50-12.50 [facility] Comment on above: Performed By: #### F ERR, CBCAD, FE Prof, smear, CMP #### [facility] [address], [place] [id number] Platelets (Bld) [#/Vol] 368 10*3/uL Normal 140-400 [facility] Comment on above: Performed By: #### F ERR, CBCAD, FE Prof, smear, CMP #### [facility] [address], [place] [id number] RBC (Bld) [#/Vol] 4.82 10*6/uL Normal 3.90-5.20 [facility] Comment on above: Performed By: #### F ERR, CBCAD, FE Prof, smear, CMP #### [facility] [address], [place] [id number] RDW-SD 43.4 fL Normal 37.0-50.0 [facility] Comment on above: Performed By: #### F ERR, CBCAD, FE Prof, smear, CMP #### [facility] [address], [place] [id number] REFLEX Smear Review Normal [facility] Comment on above: Performed By: #### F ERR, CBCAD, FE Prof, smear, CMP #### [facility] [address], [place] [id number] WBC (Bld) [#/Vol] 4.9 10*3/uL Normal 3.8-11.0 [facility] [place] [facility] Comment on above: Performed By: #### F ERR, CBCAD, FE Prof, smear, CMP #### [facility] [address], [place] [id number] Comprehensive Metabolic Pane celestino 07-12-2021 Albumin [Mass/Vol] 4.5 g/dL Normal 3.6-5.1 [facility] [place] [facility] Comment on above: Performed By: #### F ERR, CBCAD, FE Prof, smear, CMP #### [facility] [address], [place] [id number] Albumin/Globulin [Mass ratio] 1.7 {ratio} Normal 1.0-2.5 [facility] Comment on above: Performed By: #### F ERR, CBCAD, FE Prof, smear, CMP #### [facility] [address], [place] [id number] ALP [Catalytic activity/Vol] 80 U/L Normal 35-119 [facility] Comment on above: Performed By: #### F ERR, CBCAD, FE Prof, smear, CMP #### [facility] [address], [place] [id number] ALT [Catalytic activity/Vol] 12 U/L Normal 6-33 [facility] Comment on above: Result Comment: 03/29 Female reference range changed. Performed By: #### F ERR, CBCAD, FE Prof, smear, CMP #### [facility] [address], [place] [id number] Anion gap [Moles/Vol] 18 mmol/L Normal 12-20 [facility] Comment on above: Result Comment: Effe ctive 05/04/2019 reference range changed. Performed By: #### F ERR, CBCAD, FE Prof, smear, CMP #### [facility] [address], [place] [id number] AST [Catalytic activity/Vol] 20 U/L Normal 9-34 [facility] Comment on above: Performed By: #### F ERR, CBCAD, FE Prof, smear, CMP #### [facility] [address], [place] [id number] BUN/CREA 19 Ratio Normal 6-22 [facility] Comment on above: Performed By: #### F ERR, CBCAD, FE Prof, smear, CMP #### [facility] [address], [place] [id number] Calcium [Mass/Vol] 8.8 mg/dL Normal 8.6-10.2 [facility] Comment on above: Performed By: #### F ERR, CBCAD, FE Prof, smear, CMP #### [facility] [address], [place] [id number] Chloride [Moles/Vol] 104 mmol/L Normal 98-107 [facility] Comment on above: Performed By: #### F ERR, CBCAD, FE Prof, smear, CMP #### [facility] [address], [place] [id number] CO2 [Moles/Vol] 22 mmol/L Normal 20-31 [facility] Comment on above: Performed By: #### F ERR, CBCAD, FE Prof, smear, CMP #### [facility] [address], [place] [id number] Creatinine [Mass/Vol] 0.6 mg/dL Normal 0.6-1.4 [facility] Comment on above: Performed By: #### F ERR, CBCAD, FE Prof, smear, CMP #### [facility] [address], [place] [id number] eGFRAA 155 mL/min/1.73m2 Normal >60 [facility] Comment on above: Performed By: #### F ERR, CBCAD, FE Prof, smear, CMP #### [facility] [address], [place] [id number] eGFRNAA 128 mL/min/1.73m2 Normal >60 [facility] Comment on above: Performed By: #### F ERR, CBCAD, FE Prof, smear, CMP #### [facility] [address], [place] [id number] Globulin (S) [Mass/Vol] 2.6 g/dL Normal 1.9-3.7 [facility] Comment on above: Performed By: #### F ERR, CBCAD, FE Prof, smear, CMP #### [facility] [address], [place] [id number] Glucose [Mass/Vol] 80 mg/dL Normal 65-99 [facility] Comment on above: Result Comment: For FASTING Glucose --- ADA reference ranges: Normal 65-99 mg/dl Prediabetes 100-125 Diabetes >/= 126 Performed By: #### F ERR, CBCAD, FE Prof, smear, CMP #### [facility] [address], [place] [id number] Potassium [Moles/Vol] 4.2 mmol/L Normal 3.5-5.5 [facility] Comment on above: Performed By: #### F ERR, CBCAD, FE Prof, smear, CMP #### [facility] [address], [place] [id number] Protein [Mass/Vol] 7.1 g/dL Normal 6.1-8.1 [facility] Comment on above: Performed By: #### F ERR, CBCAD, FE Prof, smear, CMP #### [facility] [address], [place] [id number] Sodium [Moles/Vol] 139 mmol/L Normal 135-146 [facility] Comment on above: Performed By: #### F ERR, CBCAD, FE Prof, smear, CMP #### [facility] [address], [place] [id number] TBIL <0.3 Normal [facility] Comment on above: Performed By: #### F ERR, CBCAD, FE Prof, smear, CMP #### [facility] [address], [place] [id number] Urea nitrogen [Mass/Vol] 11 mg/dL Normal 7-25 [facility] Comment on above: Performed By: #### F ERR, CBCAD, FE Prof, smear, CMP #### [facility] [address], [place] [id number] Ferritinon 07-12-2021 FERR 12.1 ng/mL Low 15.0-150.0 [facility] Comment on above: Performed By: #### F ERR, CBCAD, FE Prof, smear, CMP #### [facility] [address], [place] [id number] Iron Profileon 07-12-2021 %FESAT 6 % Low 11-50 [facility] Comment on above: Performed By: #### F ERR, CBCAD, FE Prof, smear, CMP #### [facility] [address], [place] [id number] FE 25 ug/dL Low 40-190 [facility] Comment on above: Result Comment: Refe rence range change 03/15/2017. Prior reference range F 37-145 ug/dL, M 59-158 ug/dL. Performed By: #### F ERR, CBCAD, FE Prof, smear, CMP #### [facility] [address], [place] [id number] TIBC 441 ug/dL Normal 250-450 [facility] Comment on above: Performed By: #### F ERR, CBCAD, FE Prof, smear, CMP #### [facility] [address], [place] [id number] UIBC 416 ug/dL High 112-347 [facility] Comment on above: Performed By: #### F ERR, CBCAD, FE Prof, smear, CMP #### [facility] [address], [place] [id number] Smear Reviewon 07-12-2021 PLT EST Adequate Normal [facility] Comment on above: Performed By: #### F ERR, CBCAD, FE Prof, smear, CMP #### [facility] [address], [place] [id number] RBC morphology finding Nom (Bld) RBC morphology review confirms RBC indices Normal [facility] Comment on above: Performed By: #### F ERR, CBCAD, FE Prof, smear, CMP #### [facility] [address], [place] [id number] CBC AUTO DIFFon 05-13-2021 BASO # 0.0 103/ul Normal 0.0-0.1 [facility] Comment on above: Performed By: #### C BC #### [facility] [address] [address] [address] Kerrie Russell Basophils/100 WBC (Bld) 0.1 % Critically low 0.2-2.0 [facility] Comment on above: Performed By: #### C BC #### [facility] [address] [address] [address] Kerrie Russell EO # 0.0 103/ul Normal 0.0-0.7 [facility] Comment on above: Performed By: #### C BC #### [facility] [address] [place] [address] Dr. Kerrie Russell Eosinophils/100 WBC (Bld) 0.0 % Critically low 0.9-7.0 [facility] Comment on above: Performed By: #### C BC #### [facility] [address] [place] [address] Dr. Kerrie Russell Erythrocyte distribution width (RBC) [Ratio] 15.0 % Normal 11.0-15.0 [facility] Comment on above: Performed By: #### C BC #### [facility] [address] [place] [address] Dr. Kerrie Russell Hematocrit (Bld) [Volume fraction] 25.2 % Critically low 36.0-48.0 [facility] Comment on above: Performed By: #### C BC #### [facility] [address] [place] [address] Dr. Kerrie Russell Hemoglobin (Bld) [Mass/Vol] 7.6 g/dL Critically low 12.0-16.0 [facility] Comment on above: Result Comment: Post delivery Performed By: #### C BC #### [facility] [address] [place] [address] Dr. Kerrie Russell IG # 0.08 10e3/ul Critically high 0.00-0.03 [facility] Comment on above: Performed By: #### C BC #### [facility] [address] [place] [address] Dr. Kerrie Russell IG % 1.0 % Critically high 0.0-0.5 [facility] Comment on above: Performed By: #### C BC #### [facility] [address] [address] [address] Kerrie Russell LYMPH # 2.2 103/ul Normal 1.2-3.8 [facility] Comment on above: Performed By: #### C BC #### [facility] [address] [address] [address] Kerrie Russell Lymphocytes/100 WBC (Bld) 26.5 % Normal 20.5-60.0 [facility] Comment on above: Performed By: #### C BC #### [facility] [address] [place] [address] Dr. Kerrie Russell MANUAL DIFF REQ NO Normal [facility] Comment on above: Performed By: #### C BC #### [facility] [address] [place] [address] Dr. Kerrie Russell MCH (RBC) [Entitic mass] 21.7 pg Critically low 26.7-34.0 [facility] Comment on above: Performed By: #### C BC #### [facility] [address] [place] [address] Dr. Kerrie Russell MCHC (RBC) [Mass/Vol] 30.2 g/dL Normal 29.9-35.2 [facility] Comment on above: Performed By: #### C BC #### [facility] [address] [place] [address] Dr. Kerrie Russell MCV (RBC) [Entitic vol] 72.0 fL Critically low 81.0-99.0 [facility] Comment on above: Performed By: #### C BC #### [facility] [address] [place] [address] Dr. Kerrie Russell MONO # 0.7 103/ul Normal 0.3-0.8 [facility] Comment on above: Performed By: #### C BC #### [facility] [address] [place] [address] Dr. Kerrie Russell Monocytes/100 WBC (Bld) 9.1 % Normal 1.7-12.0 [facility] Comment on above: Performed By: #### C BC #### [facility] [address] [place] [address] Dr. Kerrie Russell NEUT # 5.1 103/ul Normal 1.4-6.5 [facility] Comment on above: Performed By: #### C BC #### [facility] [address] [place] [address] Dr. Kerrie Russell Neutrophils/100 WBC (Bld) 63.3 % Normal 43.0-75.0 [facility] Comment on above: Performed By: #### C BC #### [facility] [address] [place] [address] Dr. Kerrie Russell Platelet mean volume (Bld) [Entitic vol] 10.1 fL Normal 9.5-13.5 [facility] Comment on above: Performed By: #### C BC #### [facility] [address] [place] [address] Dr. Kerrie Russell PLT 181 103/ul Normal 150-450 [facility] Comment on above: Performed By: #### C BC #### [facility] [address] [place] [address] Dr. Kerrie Russell RBC 3.50 106/ul Critically low 4.20-5.40 [facility] Comment on above: Performed By: #### C BC #### [facility] [address] [place] [address] Dr. Kerrie Russell WBC 8.1 103/ul Normal 4.0-11.0 [facility] Comment on above: Performed By: #### C BC #### [facility] [address] [place] [address] Dr. Kerrie Russell CBC AUTO DIFFon 05-11-2021 BASO # 0.0 103/ul Normal 0.0-0.1 [facility] Comment on above: Performed By: #### C VDTBH #### [facility] [address] [place] [address] Dr. Kerrie Russell Basophils/100 WBC (Bld) 0.4 % Normal 0.2-2.0 [facility] Comment on above: Performed By: #### C VDTBH #### [facility] [address] [place] [address] Dr. Kerrie Russell EO # 0.0 103/ul Normal 0.0-0.7 [facility] Comment on above: Performed By: #### C VDTBH #### [facility] [address] [place] [address] Dr. Kerrie Russell Eosinophils/100 WBC (Bld) 0.3 % Critically low 0.9-7.0 [facility] Comment on above: Performed By: #### C VDTBH #### [facility] [address] [place] [address] Dr. Kerrie Russell Erythrocyte distribution width (RBC) [Ratio] 14.8 % Normal 11.0-15.0 [facility] Comment on above: Performed By: #### C VDTBH #### [facility] [address] [place] [address] Dr. Kerrie Russell Hematocrit (Bld) [Volume fraction] 31.2 % Critically low 36.0-48.0 [facility] Comment on above: Performed By: #### C VDTBH #### [facility] [address] [place] [address] Dr. Kerrie Russell Hemoglobin (Bld) [Mass/Vol] 9.6 g/dL Critically low 12.0-16.0 [facility] Comment on above: Performed By: #### C VDTBH #### [facility] [address] [place] [address] Dr. Kerrie Russell IG # 0.07 10e3/ul Critically high 0.00-0.03 [facility] Comment on above: Performed By: #### C VDTBH #### [facility] [address] [place] [address] Dr. Kerrie Russell IG % 1.0 % Critically high 0.0-0.5 [facility] Comment on above: Performed By: #### C VDTBH #### [facility] [address] [place] [address] Dr. Kerrie Russell LYMPH # 1.5 103/ul Normal 1.2-3.8 [facility] Comment on above: Performed By: #### C VDTBH #### [facility] [address] [place] [address] Dr. Kerrie Russell Lymphocytes/100 WBC (Bld) 21.7 % Normal 20.5-60.0 [facility] Comment on above: Performed By: #### C VDTBH #### [facility] [address] [place] [address] Dr. Kerrie Russell MANUAL DIFF REQ NO Normal [facility] Comment on above: Performed By: #### C VDTBH #### [facility] [address] [place] [address] Dr. Kerrie Russell MCH (RBC) [Entitic mass] 21.8 pg Critically low 26.7-34.0 [facility] Comment on above: Performed By: #### C VDTBH #### [facility] [address] [place] [address] Dr. Kerrie Russell MCHC (RBC) [Mass/Vol] 30.8 g/dL Normal 29.9-35.2 [facility] Comment on above: Performed By: #### C VDTBH #### [facility] [address] [place] [address] Dr. Kerrie Russell MCV (RBC) [Entitic vol] 70.7 fL Critically low 81.0-99.0 [facility] Comment on above: Performed By: #### C VDTBH #### [facility] [address] [place] [address] Dr. Kerrie Russell MONO # 0.7 103/ul Normal 0.3-0.8 [facility] Comment on above: Performed By: #### C VDTBH #### [facility] [address] [place] [address] Dr. Kerrie Russell Monocytes/100 WBC (Bld) 9.7 % Normal 1.7-12.0 [facility] Comment on above: Performed By: #### C VDTBH #### [facility] [address] [place] [address] Dr. Kerrie Russell NEUT # 4.7 103/ul Normal 1.4-6.5 [facility] Comment on above: Performed By: #### C VDTBH #### [facility] [address] [place] [address] Dr. Kerrie Russell Neutrophils/100 WBC (Bld) 66.9 % Normal 43.0-75.0 [facility] Comment on above: Performed By: #### C VDTBH #### [facility] [address] [place] [address] Dr. Kerrie Russell Platelet mean volume (Bld) [Entitic vol] 10.0 fL Normal 9.5-13.5 [facility] Comment on above: Performed By: #### C VDTBH #### [facility] [address] [place] [address] Dr. Kerrie Russell PLT 272 103/ul Normal 150-450 [facility] Comment on above: Performed By: #### C VDTBH #### [facility] [address] [place] [address] Dr. Kerrie Russell RBC 4.41 106/ul Normal 4.20-5.40 [facility] Comment on above: Performed By: #### C VDTBH #### [facility] [address] [place] [address] Dr. Kerrie Russell WBC 7.0 103/ul Normal 4.0-11.0 [facility] Comment on above: Performed By: #### C VDTBH #### [facility] [address] [place] [address] Dr. Kerrie Russell [facility] SARS-CoV-2 (COVID-19) RNA DEZ+probe Ql (Unsp spec) Detected Critically abnormal NOT DETECTED [facility] Comment on above: Result Comment: This test is not yet approved or cleared by the [place] FDA. When there are no FDA-approved or cleared tests available, and other criteria are met, FDA can make tests available under an emergency access mechanism called an Emergency Use Authorization (EUA). The EUA for this test is supported by the [employer] of Health and Human Service's declaration that [...] used). Performed By: #### C VDTBH #### [facility] [address] [place] [address] Dr. Kerrie Russell DRUG SCREEN RAPID (URINE)on 05-11-2021 AMP Negative Normal NEGATIVE [facility] Comment on above: Performed By: #### C VDTBH #### [facility] [address] [place] [address] Dr. Kerrie Russell BAR Negative Normal NEGATIVE [facility] Comment on above: Performed By: #### C VDTBH #### [facility] [address] [place] [address] Dr. Kerrie Russell BUP Negative Normal NEGATIVE [facility] Comment on above: Performed By: #### C VDTBH #### [facility] [address] [place] [address] Dr. Kerrie Russell BZO Negative Normal NEGATIVE [facility] Comment on above: Performed By: #### C VDTBH #### [facility] [address] [place] [address] Dr. Kerrie Russell ESTRELLA Negative Normal NEGATIVE [facility] Comment on above: Performed By: #### C VDTBH #### [facility] [address] [place] [address] Dr. Kerrie Russell CUT-OFFS SEE BELOW Normal [facility] Comment on above: Result Comment: AMP [...] ng/mL Performed By: #### C VDTBH #### [facility] [address] [place] [address] Dr. Kerrie Russell DRUG CUT HEADER DRUG CLASS TEST SYSTEM CUT-OFF CONCENTRATIONS ARE FOLLOWS: Normal [facility] Comment on above: Performed By: #### C VDTBH #### [facility] [address] [place] [address] Dr. Kerrie Russell mAMP Negative Normal NEGATIVE [facility] Comment on above: Performed By: #### C VDTBH #### [facility] [address] [place] [address] Dr. Kerrie Russell MTD Negative Normal NEGATIVE [facility] Comment on above: Performed By: #### C VDTBH #### [facility] [address] [place] [address] Dr. Kerrie Russell OPI Negative Normal NEGATIVE [facility] Comment on above: Performed By: #### C VDTBH #### [facility] [address] [place] [address] Dr. Kerrie Russell OXY Negative Normal NEGATIVE [facility] Comment on above: Performed By: #### C VDTBH #### [facility] [address] [place] [address] Dr. Kerrie Russell PCP Negative Normal NEGATIVE [facility] Comment on above: Performed By: #### C VDTBH #### [facility] [address] [place] [address] Dr. Kerrie Russell PPX Negative Normal NEGATIVE [facility] Comment on above: Performed By: #### C VDTBH #### [facility] [address] [place] [address] Dr. Kerrie Russell TCA Negative Normal NEGATIVE [facility] Comment on above: Performed By: #### C VDTBH #### [facility] [address] [place] [address] Dr. Kerrie Russell THC Negative Normal NEGATIVE [facility] Comment on above: Performed By: #### C VDTBH #### [facility] [address] [place] [address] Dr. Kerrie Russell TYPE AND SCREENon 05-11-2021 TYPE AND SCREEN Negative Normal [facility] Comment on above: Performed By: #### P HOS, MG, CMP #### [facility] [address] [place] [address] Dr. Kerrie Russell Complete Blood Count Auto Di ffon 07-25-2020 Basophils (Bld) [#/Vol] 0.1 10*3/uL Normal 0.0-0.2 [facility] Comment on above: Result Comment: PERF ORMED BY: [place] [address] PATHOLOGIST LAB TECHNOLOGIST TOLU MANUEL M.D. Performed By: #### F E PRO, [id number], CMP, MG, [id number], PHOS, CBC #### [address] #### VITB1 #### [facility] , Basophils/100 WBC (Bld) 0.7 % Normal . [facility] Comment on above: Performed By: #### F E PRO, [id number], CMP, MG, [id number], PHOS, CBC #### [facility] [address] [place] [address] #### VITB1 #### [facility] , Eosinophils (Bld) [#/Vol] 0.1 10*3/uL Normal 0.0-0.45 [facility] Comment on above: Performed By: #### F E PRO, [id number], CMP, MG, [id number], PHOS, CBC #### [facility] [address] [place] [address] [place] #### VITB1 #### [facility] , Eosinophils/100 WBC (Bld) 1.6 % Normal . [facility] Comment on above: Performed By: #### F E PRO, [id number], CMP, MG, [id number], PHOS, CBC #### [place] [address] [place] #### VITB1 #### [facility] , Erythrocyte distribution width (RBC) [Ratio] 13.0 % Normal 11.9-15.3 [facility] Comment on above: Performed By: #### F E PRO, [id number], CMP, MG, [id number], PHOS, CBC #### [facility] [address] [place] [address] #### VITB1 #### [facility] , Hematocrit (Bld) [Volume fraction] 38.3 % Normal 34.0-46.4 [facility] Comment on above: Performed By: #### F E PRO, [id number], CMP, MG, [id number], PHOS, CBC #### [address] #### VITB1 #### [facility] , Hemoglobin (Bld) [Mass/Vol] 12.9 g/dL Normal 11.8-15.4 [facility] Comment on above: Performed By: #### F E PRO, [id number], CMP, MG, [id number], PHOS, CBC #### [facility] [address] [place] [address] #### VITB1 #### [facility] , Lymphocytes (Bld) [#/Vol] 4.6 10*3/uL Normal 1.00-4.8 [facility] Comment on above: Performed By: #### F E PRO, [id number], CMP, MG, [id number], PHOS, CBC #### [facility] [address] [place] [address] #### VITB1 #### [facility] , Lymphocytes/100 WBC (Bld) 49.5 % Normal . [facility] Comment on above: Performed By: #### F E PRO, [id number], CMP, MG, [id number], PHOS, CBC #### [facility] [address] [place] [address] #### VITB1 #### [facility] , MCH (RBC) [Entitic mass] 28.6 pg Normal 24.7-34.3 [facility] Comment on above: Performed By: #### F E PRO, [id number], CMP, MG, [id number], PHOS, CBC #### [facility] [address] [place] [address] #### VITB1 #### [facility] , MCV (RBC) [Entitic vol] 84.5 fL Normal 80-100 [facility] Comment on above: Performed By: #### F E PRO, [id number], CMP, MG, [id number], PHOS, CBC #### [facility] [address] [place] [address] #### VITB1 #### [facility] , Mean Corpuscular HGB Conc 33.8 g/dL Normal 32.0-35.0 [facility] Comment on above: Performed By: #### F E PRO, [id number], CMP, MG, [id number], PHOS, CBC #### [facility] [address] [place] [address] #### VITB1 #### [facility] , Monocytes (Bld) [#/Vol] 0.7 10*3/uL Normal 0.0-0.8 [facility] Comment on above: Performed By: #### F E PRO, [id number], CMP, MG, [id number], PHOS, CBC #### [facility] [address] [place] [address] #### VITB1 #### [facility] , Monocytes/100 WBC (Bld) 7.5 % Normal . [facility] Comment on above: Performed By: #### F E PRO, [id number], CMP, MG, [id number], PHOS, CBC #### [facility] [address] [place] [address] #### VITB1 #### [facility] , Neutrophils (Bld) [#/Vol] 3.8 10*3/uL Normal 1.8-7.7 [facility] Comment on above: Performed By: #### F E PRO, [id number], CMP, MG, [id number], PHOS, CBC #### [facility] [address] [place] [address] [place] #### VITB1 #### [facility] , Neutrophils/100 WBC (Bld) 40.7 % Normal . [facility] Comment on above: Performed By: #### F E PRO, [id number], CMP, MG, [id number], PHOS, CBC #### [address] #### VITB1 #### [facility] , Nucleated RBC/100 WBC (Bld) [Ratio] 0.4 % Normal 0-0.5 [facility] Comment on above: Performed By: #### F E PRO, [id number], CMP, MG, [id number], PHOS, CBC #### [facility] [address] [place] [address] #### VITB1 #### [facility] , Platelet mean volume (Bld) [Entitic vol] 7.8 fL Normal 6.3-10.7 [facility] Comment on above: Performed By: #### F E PRO, [id number], CMP, MG, [id number], PHOS, CBC #### [facility] [address] [place] [address] [place] #### VITB1 #### [facility] , Platelets (Bld) [#/Vol] 354 10*3/uL Normal 150-450 [facility] Comment on above: Performed By: #### F E PRO, [id number], CMP, MG, [id number], PHOS, CBC #### [address] #### VITB1 #### [facility] , RBC (Bld) [#/Vol] 4.53 10*6/uL Normal 3.60-5.00 [facility] Comment on above: Performed By: #### F E PRO, [id number], CMP, MG, [id number], PHOS, CBC #### [facility] [address] [place] [address] #### VITB1 #### [facility] , WBC (Bld) [#/Vol] 9.3 10*3/uL Normal 4.5-11.0 [facility] Comment on above: Performed By: #### F E PRO, [id number], CMP, MG, [id number], PHOS, CBC #### [address] #### VITB1 #### [facility] , Comprehensive Metabolic Pane celestino 07-25-2020 Albumin [Mass/Vol] 4.0 g/dL Normal 3.2-5.5 [facility] Comment on above: Performed By: #### F E PRO, [id number], CMP, MG, [id number], PHOS, CBC #### [address] #### VITB1 #### [facility] , Albumin/Globulin [Mass ratio] 1.4 {ratio} Normal [facility] Comment on above: Performed By: #### F E PRO, [id number], CMP, MG, [id number], PHOS, CBC #### [facility] [address] [place] [address] [place] #### VITB1 #### [facility] , ALP [Catalytic activity/Vol] 58 U/L Normal 32-92 [facility] Comment on above: Performed By: #### F E PRO, [id number], CMP, MG, [id number], PHOS, CBC #### [facility] [address] [place] [address] #### VITB1 #### [facility] , ALT [Catalytic activity/Vol] 12 U/L Normal 10-60 [facility] Comment on above: Performed By: #### F E PRO, [id number], CMP, MG, [id number], PHOS, CBC #### [facility] [address] [place] [address] #### VITB1 #### [facility] , AST [Catalytic activity/Vol] 19 U/L Normal 10-42 [facility] Comment on above: Performed By: #### F E PRO, [id number], CMP, MG, [id number], PHOS, CBC #### [address] #### VITB1 #### [facility] , Bilirubin [Mass/Vol] 0.5 mg/dL Normal 0.3-1.2 [facility] Comment on above: Performed By: #### F E PRO, [id number], CMP, MG, [id number], PHOS, CBC #### [facility] [address] [place] [address] #### VITB1 #### [facility] , Calcium [Mass/Vol] 9.0 mg/dL Normal 8.2-10.2 [facility] Comment on above: Performed By: #### F E PRO, [id number], CMP, MG, [id number], PHOS, CBC #### [facility] [address] [place] [address] [place] #### VITB1 #### [facility] , Chloride [Moles/Vol] 100 mmol/L Normal 95-114 [facility] Comment on above: Performed By: #### F E PRO, [id number], CMP, MG, [id number], PHOS, CBC #### [facility] [address] [place] [address] [place] #### VITB1 #### [facility] , CO2 [Moles/Vol] 27.3 mmol/L Normal 22.0-30.0 [facility] Comment on above: Performed By: #### F E PRO, [id number], CMP, MG, [id number], PHOS, CBC #### [facility] [address] [place] [address] [place] #### VITB1 #### [facility] , Creatinine [Mass/Vol] 0.59 mg/dL Normal 0.44-1.03 [facility] Comment on above: Performed By: #### F E PRO, [id number], CMP, MG, [id number], PHOS, CBC #### [address] #### VITB1 #### [facility] , Estimated GFR ( Monica > 60 [facility] Comment on above: Result Comment: GFR estimated reference range: According to KDOQI guidelines, <60 ml/min/1.73m2 is sufficient to diagnose a patient with chronic kidney disease. Performed By: #### F E PRO, [id number], CMP, MG, [id number], PHOS, CBC #### [place] [address] [place] #### VITB1 #### [facility] , Estimated GFR (Non- Am > 60 Normal [facility] Comment on above: Performed By: #### F E PRO, [id number], CMP, MG, [id number], PHOS, CBC #### [facility] [address] [place] [address] [place] #### VITB1 #### [facility] , Globulin (S) [Mass/Vol] 2.8 g/dL Normal [facility] Comment on above: Performed By: #### F E PRO, [id number], CMP, MG, [id number], PHOS, CBC #### [facility] [address] [place] [address] [place] #### VITB1 #### [facility] , Glucose [Mass/Vol] 118 mg/dL High 70-100 [facility] Comment on above: Result Comment: [facility] [place] Glucose Reference Range is dependent on time and content of last meal. Glucose of more than 200 mg/dL in a nonstressed, ambulatory subject supports the diagnosis of Diabetes Mellitus. ADA recommended reference range Performed By: #### F E PRO, [id number], CMP, MG, [id number], PHOS, CBC #### [facility] [address] [place] [address] [place] #### VITB1 #### [facility] , Potassium [Moles/Vol] 3.6 mmol/L Normal 3.5-5.1 [facility] Comment on above: Performed By: #### F E PRO, [id number], CMP, MG, [id number], PHOS, CBC #### [facility] [address] [place] [address] #### VITB1 #### [facility] , Protein [Mass/Vol] 6.8 g/dL Normal 6.1-7.9 [facility] Comment on above: Performed By: #### F E PRO, [id number], CMP, MG, [id number], PHOS, CBC #### [facility] [address] [place] [address] [place] #### VITB1 #### [facility] , Sodium [Moles/Vol] 136 mmol/L Normal 136-146 [facility] Comment on above: Performed By: #### F E PRO, [id number], CMP, MG, [id number], PHOS, CBC #### [facility] [address] [place] [address] [place] #### VITB1 #### [facility] , Urea nitrogen [Mass/Vol] 10 mg/dL Normal 9-23 [facility] Comment on above: Performed By: #### F E PRO, [id number], CMP, MG, [id number], PHOS, CBC #### [facility] [address] [place] [address] [place] #### VITB1 #### [facility] , FE PROon 07-25-2020 % Iron Saturation 15.0 % Low 20-50 [facility] Comment on above: Performed By: #### F E PRO, [id number], CMP, MG, [id number], PHOS, CBC #### [facility] [address] [place] [address] [place] #### VITB1 #### [facility] , Ferritin [Mass/Vol] 8.8 ng/mL Low 11-306.8 [facility] Comment on above: Performed By: #### F E PRO, [id number], CMP, MG, [id number], PHOS, CBC #### [address] #### VITB1 #### [facility] , Iron [Mass/Vol] 68 ug/dL Normal 40-150 [facility] Comment on above: Performed By: #### F E PRO, [id number], CMP, MG, [id number], PHOS, CBC #### [facility] [address] [place] [address] [place] #### VITB1 #### [facility] , Total Iron Binding Capacity 441 ug/dL Normal 255-450 [facility] Comment on above: Performed By: #### F E PRO, [id number], CMP, MG, [id number], PHOS, CBC #### [facility] [address] [place] [address] [place] #### VITB1 #### [facility] , Transferrin [Mass/Vol] 315 mg/dL Normal 180-380 [facility] Comment on above: Performed By: #### F E PRO, [id number], CMP, MG, [id number], PHOS, CBC #### [facility] [address] [place] [address] [place] #### VITB1 #### [facility] , Magnesiumon 07-25-2020 Magnesium [Mass/Vol] 1.9 mg/dL Normal 1.6-2.6 [facility] Comment on above: Performed By: #### F E PRO, [id number], CMP, MG, [id number], PHOS, CBC #### [facility] [address] [place] [address] #### VITB1 #### [facility] , Phosphoruson 07-25-2020 Phosphate [Mass/Vol] 3.8 mg/dL Normal 2.5-4.6 [facility] Comment on above: Performed By: #### F E PRO, [id number], CMP, MG, [id number], PHOS, CBC #### [facility] [address] [place] [address] [place] #### VITB1 #### [facility] , Vit. B12/Folate Profileon Cobalamin (Vitamin B12) [Mass/Vol] 613 pg/mL Normal 180-914 [facility] Comment on above: Performed By: #### F E PRO, [id number], CMP, MG, [id number], PHOS, CBC #### [facility] [address] [place] [address] [place] #### VITB1 #### [facility] , Folate 21.8 ng/mL Normal >5.9 [facility] Comment on above: Result Comment: Hiral te reference range: >5.9 ng/ml The WHO technical consultation on folate and vitamin b12 deficiencies has determined that folate concentrations less than 4 ng/ml are considered deficient. Performed By: #### F E PRO, [id number], CMP, MG, [id number], PHOS, CBC #### [facility] [address] [place] [address] #### VITB1 #### [facility] , Vitamin B1 (Thiamine) Bloodo n 07-25-2020 Vitamin B1 (Thiamine) Blood 120.7 Normal 66.5-200.0 [facility] Comment on above: Order Comment: Speci men Comment: Test(s) 601206-Ejd. B1, Whole Blood Specimen Comment: was developed and its performance characteristics Specimen Comment: determined by [facility]. It has not been cleared or approved Specimen Comment: by the Food and Drug Administration. Result Comment: Perf ormed at: - [facility] [address] [id number] Computer Science Teacher: Jaren Bishop MD, Phone: [phone] PERFORMED BY: [place] [address] PATHOLOGIST LAB TECHNOLOGIST TOLU MANUEL M.D. Performed By: #### F E PRO, [id number], CMP, MG, [id number], PHOS, CBC #### [address] #### VITB1 #### [facility] , Vitamin D 25 Hydroxy Totalon 07-25-2020 Vitamin D 25 Hydroxy Total 33.5 ng/mL Normal 30-100 [facility] Comment on above: Result Comment: LISANDRO MIN D STATUS 25(OH)VITAMIN D RANGE (ng/mL) Deficient <20 Insufficient 20 to <30 Sufficient 30 to 100 Reference: Sejal MF,Shraddha NC, Filiberto GREENBERG, et al. Evaluation,treatment, and prevention of vitamin D deficiency; an Endocrine Society clinical practice guideline. JCEM. 2010; 96(7):1911-30. PERFORMED BY: [place] [address] PATHOLOGIST LAB TECHNOLOGIST TOLU MANUEL M.D. Performed By: #### F E PRO, [id number], CMP, MG, [id number], PHOS, CBC #### [address] #### VITB1 #### [facility] , COVID-19 [...] its performance Sharda Disclaimer characteristic determined by [employer] and Sharda Disclaimer validated at [facility]. This Sharda Disclaimer test has not [...] Emergency Use Authorization for Coronavirus Sharda Disclaimer iseas during the Public Health Emergency) Sharda Disclaimer [...] is terminated or revoked sooner. PERFORMED BY: [place] [address] PATHOLOGIST LAB TECHNOLOGIST TOLU MANUEL M.D. [facility] Comment on above: Performed By: #### C OVID-19 SHARDA, SOFIANEG #### [facility] [address] [place], [place] [id number] [facility] Sharda Ag Negativeon 07-21-19 21 Sharda Ag Negative Negative Normal Negative [facility] Comment on above: Result Comment: This is a duplicate Sharda SARS Antigen (SIERRA) result to be used for statistical tracking purpose only. PERFORMED BY: [place] [address] PATHOLOGIST LAB TECHNOLOGIST TOLU MANUEL M.D. Performed By: #### C OVID-19 SHARDA, SOFIANEG #### [facility] [address] [place] [address] [facility] Vitamin B1 (Thiamine) Whl Bl ood LCon 10-05-2018 Vit B1 Whl Bld LC 154.0 nmol/L 66.5-200.0 [facility] Comment on above: Result Comment: This test was developed and its performance characteristics determined by [facility]. It has not been cleared or approved by the Food and Drug Administration. 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 ADMIT [...] Jordyn Martinez Date Saved: 10/02/2018 03:39 pm [facility] .Auto Diff 110-01-2018 Auto Baso % 0.3 % Normal 0.2-2.0 [facility] Comment on above: Performed By: #### 9 251810, 57418174, 9464520, 2096587550, 8660167, 355779371, 2739712, 1374980, 7889738, 1926624 #### [facility] (DEFAULT) [address] [place] [address] Auto [place] % 6 % Normal 1-12 [facility] Comment on above: Performed By: #### 9 898541, 62338345, 9352859, 0007506937, 9082260, 224634728, 2308728, 0813282, 4569447, 9218833 #### [facility] (DEFAULT) [address] [place] [address] Auto Neut % 60 % Normal 44-88 [facility] Comment on above: Performed By: #### 9 011850, 27626871, 2110207, 6126226212, 7066894, 946715865, 8315516, 9450745, 3994141, 9765909 #### [facility] (DEFAULT) [address] [place] [address] Baso Abs# 0.0 x10 Normal 0.0-0.2 [facility] Comment on above: Performed By: #### 9 165394, 59434487, 0297349, 2468859344, 1436484, 802828378, 2248717, 3800576, 1296819, 9479853 #### [facility] (DEFAULT) [address] [place] [address] Eos Abs# 0.1 x10 Normal 0.0-0.4 [facility] Comment on above: Performed By: #### 9 532110, 41852409, 5152520, 7596724950, 5301662, 779340431, 1177267, 5120704, 8278068, 6567380 #### [facility] (DEFAULT) [address] [place] [address] Eosinophils/100 WBC (Bld) 0.9 % Normal 0.9-4.0 [facility] Comment on above: Performed By: #### 9 446081, 35298096, 2037803, 0046241342, 6979460, 261411836, 1235022, 4232505, 7047696, 3852345 #### [facility] (DEFAULT) [address] [place] [address] Lymphocytes #/vol (Bld) 3.4 x10 High 1.3-2.9 [facility] Comment on above: Performed By: #### 9 341267, 20554106, 5420444, 6989354340, 1427538, 760127095, 1717463, 4006636, 4659532, 0097864 #### [facility] (DEFAULT) [address] [place] [address] Lymphocytes/100 WBC (Bld) 33 % Normal 14-48 [facility] Comment on above: Performed By: #### 9 561558, 18123960, 9040354, 1463180405, 7181153, 201125603, 4406015, 1084717, 6950113, 6166936 #### [facility] (DEFAULT) [address] [place] [address] [place] Abs# 0.6 x10 Normal 0.0-0.8 [facility] Comment on above: Performed By: #### 9 185766, 45854329, 0042177, 6810683322, 2405075, 411153178, 5148291, 4142206, 2235759, 4625424 #### [facility] (DEFAULT) [address] [place] [address] Neut Abs# 6.2 x10 Normal 1.5-9.2 [facility] Comment on above: Performed By: #### 9 878680, 50458089, 0189896, 5543333478, 3487964, 051958894, 6158186, 3799589, 1080705, 7331579 #### [facility] (DEFAULT) [address] [place] [address] CBC w/ Auto Diffon 9 Erythrocyte distribution width Ratio (RBC) 14.6 % Normal 11.5-15.0 [facility] Comment on above: Performed By: #### 9 211942, 95978034, 3002171, 6328629752, 7055482, 001578421, 9025696, 6378626, 9706223, 1796363 #### [facility] (DEFAULT) [address] [place] [address] Hematocrit Volume Fraction (Bld) 41.2 % High 33.7-40.4 [facility] Comment on above: Performed By: #### 9 907910, 88344598, 4400316, 7585872135, 2667517, 889264503, 3795144, 1579292, 2319703, 2006780 #### [facility] (DEFAULT) [address] [place] [address] Hemoglobin mass conc (Bld) 13.7 g/dL Normal 11.3-15.9 [facility] Comment on above: Performed By: #### 9 140847, 99943866, 0600496, 9649535051, 9520450, 323963635, 2541055, 7702260, 8532250, 2008694 #### [facility] (DEFAULT) [address] [place] [address] Man Diff? Auto Normal [facility] Comment on above: Performed By: #### 9 132972, 27056582, 1272506, 2773078110, 0193601, 552190710, 1974535, 3306119, 4746921, 9472705 #### [facility] (DEFAULT) [address] [place] [address] MCH Entitic mass (RBC) 28 pg Normal 24-34 [facility] Comment on above: Performed By: #### 9 611341, 12123482, 1441054, 8349331104, 6452004, 536579821, 8172975, 9505522, 9559577, 6219293 #### [facility] (DEFAULT) [address] [place] [address] MCHC mass conc (RBC) 33 g/dL Normal 26-37 [facility] Comment on above: Performed By: #### 9 354901, 32439276, 8024303, 7316916672, 5305539, 491055920, 4449133, 7018290, 1042862, 9997842 #### [facility] (DEFAULT) [address] [place] [address] MCV Entitic volume (RBC) 85 fL Normal 81-100 [facility] Comment on above: Performed By: #### 9 941502, 55981631, 3219032, 7978853569, 1122936, 354619184, 2202463, 4020239, 5290148, 3386659 #### [facility] (DEFAULT) [address] [place] [address] Platelet mean volume Entitic volume (Bld) 9.8 fL Normal 6.3-10.2 [facility] Comment on above: Performed By: #### 9 732783, 23359125, 2746129, 3881453509, 3609249, 210761368, 6191370, 6518867, 8822129, 2382562 #### [facility] (DEFAULT) [address] [place] [address] Platelets #/vol (Bld) 378 x10 Normal 138-427 [facility] Comment on above: Performed By: #### 9 480869, 06686181, 5419865, 2513020311, 0566176, 844685780, 8832213, 0756794, 7471678, 4313958 #### [facility] (DEFAULT) [address] [place] [address] RBC #/vol (Bld) 4.84 x10 Normal 3.70-5.30 [facility] Comment on above: Performed By: #### 9 471456, 80854200, 8581407, 6430500898, 0244344, 564235882, 4514388, 0902767, 6583126, 3514421 #### [facility] (DEFAULT) [address] [place] [address] WBC #/vol (Bld) 10.4 x10 Normal 3.5-10.5 [facility] Comment on above: Performed By: #### 9 551504, 43032977, 2406805, 8440638441, 2461027, 731201071, 1303953, 3687756, 4362543, 9331011 #### [facility] (DEFAULT) [address] [place] [address] CMP Standardon 10-01-2018 eGFR Non AA >60 [facility] Comment on above: Performed By: #### 9 408198, 45174705, 0614094, 3296639582, 7325786, 856498924, 4455992, 2189656, 9904637, 7327011 #### [facility] (DEFAULT) [address] [place] [address] eGFR AA >60 [facility] Comment on above: Result Comment: Vp Outcomes richard Kidney disease could be indicated at eGFRs of less than 60 ml/min/1.73m2. Kidney Failure is indicated at less than 15 ml/min/1.73m2 Performed By: #### 9 506870, 53922245, 8560131, 5373303466, 4862222, 047065098, 3137056, 0450209, 9393186, 1513447 #### [facility] (DEFAULT) [address] [place] [address] Albumin mass conc 4.1 g/dL Normal 3.5-5.0 [facility] Comment on above: Performed By: #### 9 039469, 95529380, 6051722, 5847243065, 8328373, 981710572, 6592626, 3830608, 5903039, 7900851 #### [facility] (DEFAULT) [address] [place] [address] Albumin/Globulin mass ratio 1.2 {ratio} Low 1.4-2.6 [facility] Comment on above: Performed By: #### 9 050365, 31715553, 6317726, 7975672793, 9193114, 526439300, 7025411, 0607848, 9264076, 3032743 #### [facility] (DEFAULT) [address] [place] [address] Alk Phos 57 IU/L Normal 32-91 [facility] Comment on above: Performed By: #### 9 812801, 23176231, 2425647, 8756700136, 5995350, 508532619, 9799757, 3813601, 9057244, 7079629 #### [facility] (DEFAULT) [address] [place] [address] ALT/SGPT 68.0 IU/L High 14.0-54.0 [facility] Comment on above: Performed By: #### 9 062720, 80150064, 8289169, 2280845361, 4701137, 579063078, 4698047, 7801095, 2796333, 1090627 #### [facility] (DEFAULT) [address] [place] [address] Anion gap molar conc 15.0 mmol/L Normal 5.0-19.0 [facility] Comment on above: Performed By: #### 9 126557, 00304571, 8448600, 2212757773, 0250375, 386087196, 6791744, 1218116, 6278958, 2537949 #### [facility] (DEFAULT) [address] [place] [address] AST/SGOT 40 IU/L Normal 15-41 [facility] Comment on above: Performed By: #### 9 955849, 15138443, 9282785, 4263494708, 2594277, 715350053, 3429843, 9610226, 7033036, 8952857 #### [facility] (DEFAULT) [address] [place] [address] Bili Total 0.2 mg/dL Low 0.3-1.2 [facility] Comment on above: Performed By: #### 9 894285, 07648010, 7701971, 3059997173, 3669585, 102462796, 0325720, 9123947, 4882139, 0801831 #### [facility] (DEFAULT) [address] [place] [address] Calcium mass conc 9.1 mg/dL Normal 8.9-10.3 [facility] Comment on above: Performed By: #### 9 462755, 64263176, 5077531, 8717415999, 6868203, 616610505, 3786767, 7033638, 5194771, 0943308 #### [facility] (DEFAULT) [address] [place] [address] Chloride molar conc 103 mmol/L Normal 101-111 [facility] Comment on above: Performed By: #### 9 606130, 95498554, 6506751, 5631222340, 2472444, 555327664, 1892554, 2394815, 9852332, 8297437 #### [facility] (DEFAULT) [address] [place] [address] CO2 molar conc 24 mmol/L Normal 21-32 [facility] Comment on above: Performed By: #### 9 512134, 94380766, 9490903, 7760119624, 5700896, 840713403, 6429783, 0676039, 6154313, 8833807 #### [facility] (DEFAULT) [address] [place] [address] Creatinine mass conc 0.71 mg/dL Normal 0.60-1.30 [facility] Comment on above: Performed By: #### 9 112663, 02566679, 9797151, 9732276225, 4118105, 366175225, 6137065, 2290523, 4372870, 8163782 #### [facility] (DEFAULT) [address] [place] [address] Globulin mass conc (S) 3.3 g/dL Normal 1.5-4.3 [facility] Comment on above: Performed By: #### 9 895717, 17578643, 8308503, 5828161230, 3576150, 418479261, 0955306, 5563962, 2200241, 3694538 #### [facility] (DEFAULT) [address] [place] [address] Glucose mass conc 94.0 mg/dL Normal 74.0-118.0 [facility] Comment on above: Performed By: #### 9 235808, 91060442, 4604080, 5855141532, 8505951, 243677207, 0012418, 9994603, 3053515, 6268382 #### [facility] (DEFAULT) [address] [place] [address] Osmolality 274 mOsm/L [facility] Comment on above: Performed By: #### 9 810915, 75148039, 9253775, 0163085044, 8694171, 442289717, 3566717, 2923044, 8737802, 2179451 #### [facility] (DEFAULT) [address] [place] [address] Potassium molar conc 3.8 mmol/L Normal 3.6-5.1 [facility] Comment on above: Performed By: #### 9 831386, 20192303, 6437614, 8270144080, 6518277, 477261412, 9549024, 5268559, 5921507, 5342228 #### [facility] (DEFAULT) [address] [place] [address] Protein mass conc 7.4 g/dL Normal 6.5-8.1 [facility] Comment on above: Performed By: #### 9 421511, 22324173, 1910984, 6795237324, 9548815, 236618930, 1616056, 1436773, 9889683, 8281256 #### [facility] (DEFAULT) [address] [place] [address] Sodium molar conc 138.0 mmol/L Normal 136.0-144.0 [facility] Comment on above: Performed By: #### 9 944834, 19342288, 5385630, 5760344610, 6540041, 355865290, 2455355, 1741185, 7935468, 2949779 #### [facility] (DEFAULT) [address] [place] [address] Urea nitrogen mass conc 10 mg/dL Normal 8-26 [facility] Comment on above: Performed By: #### 9 403505, 03224466, 5979278, 3457585671, 4315380, 671860742, 4663655, 1105880, 3118596, 0464853 #### [facility] (DEFAULT) [address] [place] [address] Urea nitrogen/Creatinine mass ratio 14.0 mg/mg Normal 4.6-16.2 [facility] Comment on above: Performed By: #### 9 845392, 79679530, 0234784, 2811601864, 5304856, 434656545, 8476048, 8868481, 2802467, 4059818 #### [facility] (DEFAULT) [address] [place] [address] Folateon 10-01-2018 Folic Acid Level 13.29 ng/mL Normal 5.90-24.80 [facility] Comment on above: Result Comment: Norm al folate results > 3.0 ng/mL. Performed By: #### 9 320838, 37066410, 9162296, 9628673172, 1774916, 153313614, 2288931, 2341007, 8716452, 7172895 #### [facility] (DEFAULT) [address] [place] [address] Iron Levelon 10-01-2018 Iron mass conc 53.0 ug/dL Normal 28.0-170.0 [facility] Comment on above: Performed By: #### 9 010925, 72991277, 2131537, 1814562166, 3548760, 482002572, 6480543, 0476987, 0189918, 5086154 #### [facility] (DEFAULT) [address] [place] [address] Magnesiumon 10-01-2018 Magnesium mass conc 2.01 mg/dL Normal 1.80-2.50 [facility] Comment on above: Result Comment: The reference range for magnesium has changed from 0.40-2.10 mg/dl to 1.80-2.50 mg/dl as of 08/15/15. Performed By: #### 9 134687, 15379613, 9027966, 3176935765, 1244160, 252500804, 2984229, 6836331, 6132226, 4359058 #### [facility] (DEFAULT) [address] [place] [address] Phoson 10-01-2018 Phosphate mass conc 3.1 mg/dL Normal 2.5-4.6 [facility] Comment on above: Performed By: #### 9 686622, 90436200, 2530236, 6994587158, 0235571, 172153193, 4736134, 5031711, 0238121, 3745553 #### [facility] (DEFAULT) [address] [place] [address] Vit B12 Lvlon 10-01-2018 Cobalamin (Vitamin B12) mass conc 1488 pg/mL High 180-914 [facility] Comment on above: Performed By: #### 9 767565, 85076750, 8798443, 7560465387, 8827021, 362967714, 8275849, 4641853, 9544627, 2433912 #### [facility] (DEFAULT) [address] [place] [address] Vit D25 OHon 10-01-2018 Vitamin D 25 OH 41 ng/mL [facility] Comment on above: Result Comment: In 2 011, the Clinical Guidelines Subcommittee of the Endocrine [...] J Clin Endocrinol Metab 2011; 96 (7): 9345-0461. Performed By: #### 9 799251, 04894065, 8971363, 3522836857, 0317070, 984341730, 5820383, 5967104, 3898932, 1334436 #### [facility] (DEFAULT) [address] [place] [address] Vital Signs Date Time Vital Sign Value Performing Clinician Facility 09-23-2024 11:46-0400 Body mass index (BMI) [Ratio] 33.09 kg/m2 [employer] Work Phone: [facility] 09-23-2024 11:46-0400 Body weight 79.43 kg [employer] DO Work Phone: [facility] 09-23-2024 11:46-0400 Diastolic blood pressure 74 mm[Hg] [employer] Work Phone: [facility] 09-23-2024 11:46-0400 Systolic blood pressure 110 mm[Hg] [employer] Work Phone: [facility] 09-08-2024 09:43-0400 Body mass index (BMI) [Ratio] 32.88 kg/m2 [employer] Work Phone: [facility] 09-08-2024 09:43-0400 Body weight 78.93 kg Douglas Debbie DO Work Phone: [facility] 09-08-2024 09:43-0400 Diastolic blood pressure 70 mm[Hg] Douglas Debbie DO Work Phone: [facility] 09-08-2024 09:43-0400 Systolic blood pressure 112 mm[Hg] Douglas Debbie DO Work Phone: [facility] 08-13-2024 09:32-0400 Body mass index (BMI) [Ratio] 32.08 kg/m2 Douglas Debbie DO Work Phone: [facility] 08-13-2024 09:32-0400 Body weight 77.02 kg Douglas Debbie DO Work Phone: [facility] 08-13-2024 09:32-0400 Diastolic blood pressure 76 mm[Hg] Douglas Debbie DO Work Phone: [facility] 08-13-2024 09:32-0400 Systolic blood pressure 116 mm[Hg] Douglas Debbie DO Work Phone: [facility] 07-16-2024 09:08-0400 Body mass index (BMI) [Ratio] 30.42 kg/m2 Douglas Debbie DO Work Phone: [facility] 07-16-2024 09:08-0400 Body weight 73.03 kg Douglas Debbie DO Work Phone: [facility] 07-16-2024 09:08-0400 Diastolic blood pressure 82 mm[Hg] Douglas Debbie DO Work Phone: [facility] 07-16-2024 09:08-0400 Systolic blood pressure 118 mm[Hg] Douglas Debbie DO Work Phone: [facility] 06-17-2024 08:57-0500 Body mass index (BMI) [Ratio] 30.42 kg/m2 Maddie WRIGHT Work Phone: [facility] 06-17-2024 08:57-0500 Body weight 73.03 kg Maddie Dustin WRIGHT Work Phone: [facility] 06-17-2024 08:57-0500 Diastolic blood pressure 72 mm[Hg] Maddie Garciaey PA Work Phone: [facility] 06-17-2024 08:57-0500 Systolic blood pressure 112 mm[Hg] Maddie Garciaey PA Work Phone: [facility] 05-20-2024 15:27-0500 Body mass index (BMI) [Ratio] 29.55 kg/m2 Douglas Debbie DO Work Phone: [facility] 05-20-2024 15:27-0500 Body weight 70.94 kg Douglas Debbie DO Work Phone: [facility] 05-20-2024 15:27-0500 Diastolic blood pressure 70 mm[Hg] Douglas Debbie DO Work Phone: [facility] 05-20-2024 15:27-0500 Systolic blood pressure 102 mm[Hg] Douglas Debbie DO Work Phone: [facility] 04-17-2024 11:01-0500 Body mass index (BMI) [Ratio] 28.72 kg/m2 [facility] 04-17-2024 11:01-0500 Body weight 68.95 kg [facility] 04-17-2024 11:01-0500 Diastolic blood pressure 70 mm[Hg] [facility] 04-17-2024 11:01-0500 Systolic blood pressure 118 mm[Hg] [facility] 01-09-2024 15:59-0400 Body height 154.9 cm Xena Mccallum MD Work Phone: [facility] 01-09-2024 15:59-0400 Body mass index (BMI) [Ratio] 29.25 kg/m2 Xena Mccallum MD Work Phone: [facility] 01-09-2024 15:59-0400 Body weight 70.22 kg Xena Mccallum MD Work Phone: [facility] 01-09-2024 15:59-0400 Diastolic blood pressure 70 mm[Hg] Xena Mccallum MD Work Phone: [facility] 01-09-2024 15:59-0400 Heart rate 82 /min Xena Mccallum MD Work Phone: [facility] 01-09-2024 15:59-0400 Respiratory rate 18 /min Xena Mccallum MD Work Phone: [facility] 01-09-2024 15:59-0400 SaO2% (BldA) [Mass fraction] 99 % Xena Mccallum MD Work Phone: [facility] 01-09-2024 15:59-0400 Systolic blood pressure 122 mm[Hg] Xena Mccallum MD Work Phone: [facility] 08-16-2021 10:22-0400 Blood Pressure Location Scotty LOG[facility] 08-16-2021 10:22-0400 Diastolic blood pressure 72 mm[Hg] [facility] [facility] 08-16-2021 10:22-0400 Heart rate 84 /min Scotty LOGAN [facility] 08-16-2021 10:22-0400 Respiratory rate 16 /min Sctoty LOGAN [facility] 08-16-2021 10:22-0400 Systolic blood pressure 104 mm[Hg] Scotty LOGAN [facility] Encounters Encounter Date Encounter Type Care Provider Facility Start: 09-23-2024 End: 09-23-2024 Nicoboo flowsheet Douglas Debbie DO Work Phone: [facility] Start: 09-23-2024 End: 09-23-2024 Bamboo flowsheet Douglas Debbie DO Work Phone: [facility] Start: 09-23-2024 End: 09-23-2024 ambulatory DOUGLAS DEBBIE Not Available Start: 09-23-2024 End: 09-23-2024 flow sheet Douglas Debbie DO Work Phone: [facility] Comment on above: 31 weeks gestation o f ; Third trimester Start: 09-15-2024 End: 09-15-2024 ambulatory DOUGLAS DEBBIE Not Available Start: 09-08-2024 End: 09-08-2024 Bamboo flowsheet Douglas Debbie DO Work Phone: [facility] Start: 09-08-2024 End: 09-08-2024 Bamboo flowsheet Douglas Debbie DO Work Phone: [facility] Start: 09-08-2024 End: 09-08-2024 ambulatory DOUGLAS DEBBIE Not Available Start: 09-08-2024 End: 09-08-2024 flow sheet Douglas Debbie DO Work Phone: [facility] Comment on above: Third trimester preg lian; 29 weeks gestation of ; History of gastric bypass; Mood changes Start: 08-13-2024 End: 08-13-2024 Bamboo flowsheet Douglas Debbie DO Work Phone: [facility] Start: 08-13-2024 End: 08-13-2024 Bamboo flowsheet Douglas Debbie DO Work Phone: [facility] Start: 08-13-2024 End: 08-13-2024 ambulatory DOUGLAS DEBBIE Not Available Start: 08-13-2024 End: 08-13-2024 flow sheet Douglas Debbie DO Work Phone: [facility] Comment on above: Second trimester pre gnancy; 26 weeks gestation of ; Nonintractable headache, unspecified chronicity pattern, unspecified headache type Start: 07-22-2024 End: 07-22-2024 Clinisync Result Encounter Generic External Data Provider [facility] External Department Unsolicited Start: 07-22-2024 End: 07-22-2024 Clinisync Result Encounter Generic External Data Provider [facility] External [facility] Unsolicited Start: 07-16-2024 End: 07-16-2024 Bamboo flowsheet Douglas Debbie DO Work Phone: [facility] Start: 07-16-2024 End: 07-16-2024 Bamboo flowsheet Douglas Debbie DO Work Phone: [facility] Start: 07-16-2024 End: 07-16-2024 flow sheet Douglas Debbie DO Work Phone: [facility] Comment on above: 22 weeks gestation o f ; Second trimester ; Diabetes mellitus screening; History of gastric bypass; Nonintractable headache, unspecified chronicity pattern, unspecified headache type Start: 07-16-2024 End: 07-16-2024 ambulatory DOUGLAS LEWIS Not Available Start: 07-09-2024 End: 07-09-2024 ambulatory MADDIE HARP Not Available Start: 06-17-2024 End: 06-17-2024 Bamboo flowsheet Maddie WRIGHT Work Phone: [facility] Start: 06-17-2024 End: 06-17-2024 Bamboo flowsheet Maddie WRIGHT Work Phone: [facility] Start: 06-17-2024 End: 06-17-2024 flow sheet Maddie WRIGHT Work Phone: [facility] Comment on above: Second trimester pre gnancy; 17 weeks gestation of ; Need for maternal serum alpha-protein (MSAFP) screening; Screening examination for STI; Screening, , for anatomic survey; Nausea; Nonintractable headache, unspecified chronicity pattern, unspecified headache type Start: 06-17-2024 End: 06-17-2024 ambulatory MADDIE HARP Not Available Start: 05-20-2024 End: 05-20-2024 flow sheet Douglas Debbie DO Work Phone: [facility] Comment on above: First trimester preg lian; 13 weeks gestation of Start: 05-20-2024 End: 05-20-2024 ambulatory DOUGLAS DEBBIE Not Available Start: 05-20-2024 End: 05-20-2024 Bamboo flowsheet Douglas Debbie DO Work Phone: [facility] Start: 05-20-2024 End: 05-20-2024 Bamboo flowsheet Douglas Debbie DO Work Phone: [facility] Start: 05-11-2024 End: 05-11-2024 Clinisync Result Encounter Generic External Data Provider [facility] External Department Unsolicited Start: 05-11-2024 End: 05-11-2024 Clinisync Result Encounter Generic External Data Provider [facility] Unsolicited Start: 04-17-2024 End: 04-17-2024 ambulatory [facility] Debbie Nurse [facility] Comment on above: GA: 9w1d Start: 02-19-2024 End: 02-20-2024 Refill Xena Mccallum [...] (Primary Dx); Dysuria Start: 01-09-2024 End: 01-09-2024 Refill Xena Mccallum MD Work Phone: [facility] Comment on above: Intractable chronic migraine without aura and with status migrainosus (CMS/HCC); Anxiety; Neck pain; Cervicogenic headache Start: 11-05-2023 End: 11-05-2023 ambulatory DOUGLAS LEWIS Not Available Start: 07-24-2023 End: 07-25-2023 ambulatory Scotty LOGAN Facility:[facility] [place] Start: 07-24-2023 End: 07-24-2023 Patient encounter procedure Scotty LOGAN [facility] Start: 05-09-2022 ambulatory CHERYL TOTH Facility:[facility] Start: 04-09-2022 End: 04-10-[address] SCOTTY LOGAN Facility:[facility] Start: 02-28-2022 End: 03-01-2022 ambulatory CHERYL TOTH Facility:[facility] Start: 12-28-2021 End: 12-29-[address] DOCTOR WHALEN Facility:[facility] Start: 09-01-2021 End: 09-02-[address] DOCTOR WHALEN Facility:[facility] Start: 08-16-2021 End: 08-16-2021 Patient encounter procedure Scotty LOGAN [facility] Start: 08-11-2021 End: 08-12-[address] DOCTOR WHALEN Facility:[facility] Start: 05-22-2021 End: 05-29-[address] DOUGLAS LEWIS Facility:[facility] Start: 05-11-2021 End: 05-14-2021 Evaluation and management of inpatient DR DOUGLAS LEWIS Facility:[facility] Procedures Date Procedure Procedure Detail Performing Clinician Start: 09-23-2024 Urnls dip stick/tabl et rgnt non-auto w/o micrscp Douglas Lewis DO Work Phone: Start: 07-22-2024 [facility] CMP (CMP) (FOR R [facility] USE) Douglas Debbie DO Work Phone: Start: 07-22-2024 [employer] BILIRUBIN, DIRECT Douglas Debbie DO Work Phone: Start: 07-16-2024 Urnls dip stick/tabl et rgnt non-auto w/o micrscp Maddie WRIGHT Work Phone: Start: 06-17-2024 Urnls dip stick/tabl et rgnt non-auto w/o micrscp Maddie WRIGHT Work Phone: Start: 05-20-2024 Urnls dip stick/tabl et rgnt non-auto w/o micrscp Douglas Debbie DO Work Phone: Start: 05-11-2024 BOX TEST Douglas Fazi o DO Work Phone: Start: 04-17-2024 Urine test visual color cmprsn meths Douglas Debbie DO Work Phone: Start: 04-17-2024 Urnls dip stick/tabl et rgnt non-auto w/o micrscp Douglas Debbie DO Work Phone: Start: 02-03-2024 ALL CBC WITH AUTO DIFF Generic External Data Provider Start: 01-09-2024 Culture bacterial quanttative colony count urine Xena Mccallum MD Work Phone: Start: 01-09-2024 NOTE Xena irizarry MD Work Phone: Start: 01-09-2024 End: 01-09-2024 Urnls dip stick/tablet rgnt non-auto w/o micrscp Xena Mccallum MD Work Phone: Start: 05-12-2021 Extraction of Produc ts of Conception, Low Cervical, Open Approach DR SCOTTY LOGAN Start: 05-12-2021 Drainage of Amniotic Fluid, Therapeutic from Products of Conception, Via Natural or Artificial Opening DR SCOTTY LOGAN Start: 05-12-2021 Introduction of Horm one into Female Reproductive, Via Natural or Artificial Opening DR SCOTTY LOGAN Start: 03-19-2021 Cystoscope, device ( physical object) Scotty LOGAN Bypass of stomach Scotty HEMANT [place] Cholecystectomy Scotty LOGAN Plan of Treatment Date Care Activity Detail Author Start: 12-28-2024 Influenza vaccination Influenz a Vaccine (Season Ended) [facility] Start: 11-10-2024 End: 11-10-2024 Patient encounter procedure 11/10/2024 10:00 AM EDT Office Visit [facility] [address] [place] [address] Douglas Lewis, DO [address] [place] [address] [facility] Start: 10-26-2024 Influenza vaccination Influenza Vacc ine (#1) [facility] Comment on above: Postponed from 12/28 (Patient Refused) Start: 10-07-2024 End: 10-07-2024 Patient encounter procedure 10/07/2024 1:50 PM EDT Routine [facility] [address] [place] [address] Douglas Lewis, DO [address] [place], [place] [id number] [facility] Start: 09-23-2024 End: 09-23-2024 Patient encounter procedure 09/23/2024 11:30 AM EDT Routine [facility] [address] [place] [address] Douglas Lewis, DO [address], [place] [id number] [facility] Start: 09-15-2024 End: 09-15-2024 Professional / ancillary services management 09/15/2024 11:30 AM EDT Ancillary Procedure [facility] [address] [place] [address] [facility] Start: 09-08-2024 End: 03-11-2025 US biophysical profile w non stress test US biophysical profile w non stress test Imaging Routine History of gastric bypass Expected: 09/08/2024 (Approximate), Expires: 03/11/2025 [facility] Work Phone: Comment on above: Expected: 09/08/2024 (Approximate), Expires: 03/11/2025 Start: 09-08-2024 End: 01-09-2025 US for US OB follow up transabdominal approach Imaging Routine History of gastric bypass Expected: 09/08/2024, Expires: 01/09/2025 [facility] Comment on above: Expected: 09/08/2024 , Expires: 01/09/2025 Start: 09-08-2024 End: 09-08-2024 Patient encounter procedure 09/08/2024 9:20 AM EDT Routine [facility] [address] [place] [id number] Douglas Lewis, DO [address] [place] [address] [facility] Start: 08-26-2024 End: 08-26-2024 Patient encounter procedure 08/26/2024 8:50 AM EDT Routine [facility] [address] [place] [phone] Ingrid Villalta, [employer] [address] [place] [id number] [facility] Start: 08-13-2024 End: 08-13-2024 Patient encounter procedure 08/13/2024 9:10 AM EDT Routine [facility] [address] [place] [phone] Douglas Lewis, DO [address] [place] [address] [facility] Start: 07-16-2024 End: 07-16-2025 CBC panel - Blood by Automated count CBC Lab Routine 22 weeks gestation of Second trimester Diabetes mellitus screening Expected: 07/16/2024 (Approximate), Expires: 07/16/2025 [facility] Work Phone: Comment on above: Expected: 07/16/2024 (Approximate), Expires: 07/16/2025 Start: 07-16-2024 End: 07-16-2024 Patient encounter procedure [facility] Comment on above: Arrived Start: 07-15-2024 End: 07-15-2024 Alpha fetoprotein, maternal Alpha fetoprotein, maternal Lab Routine Need for maternal serum alpha-protein (MSAFP) screening Expected: 07/15/2024 (Approximate), Expires: 07/15/2024 [facility] Comment on above: Expected: 07/15/2024 (Approximate), Expires: 07/15/2024 Start: 07-09-2024 End: 07-09-2024 Professional / ancillary services management 07/09/2024 8:00 AM EDT Ancillary Procedure [facility] [address] [facility] [place] [phone] [facility] Start: 06-17-2024 End: 06-17-2025 US for US OB 14+ weeks anatomy scan Imaging Routine Screening, , for anatomic survey Expected: 06/17/2024 (Approximate), Expires: 06/17/2025 [facility] Comment on above: Expected: 06/17/2024 (Approximate), Expires: 06/17/2025 Start: 06-17-2024 End: 06-17-2024 Patient encounter procedure [facility] Comment on above: Arrived Start: 05-20-2024 End: 05-20-2024 Patient encounter procedure [facility] Comment on above: Arrived Start: 04-17-2024 End: 04-17-2025 ABO/Rh ABO/Rh Lab Routine Missed menses , unspecified gestational age Expected: 04/17/2024 (Approximate), Expires: 04/17/2025 [facility] Comment on above: Expected: 04/17/2024 (Approximate), Expires: 04/17/2025 Start: 04-17-2024 End: 04-17-2025 Blood type and Indirect antibody screen panel - Blood Type and screen Lab Routine Missed menses , unspecified gestational age Expected: 04/17/2024 (Approximate), Expires: 04/17/2025 [facility] Work Phone: Comment on above: Expected: 04/17/2024 (Approximate), Expires: 04/17/2025 Start: 04-17-2024 End: 04-17-2025 Drugs of abuse panel - Urine by Screen method Rapid drug screen, urine Lab Routine , unspecified gestational age Encounter for supervision of normal first in first trimester Expected: 04/17/2024 (Approximate), Expires: 04/17/2025 [facility] Comment on above: Expected: 04/17/2024 (Approximate), Expires: 04/17/2025 Start: 04-17-2024 End: 04-17-2025 US Pelvis transvaginal US OB transvaginal Imaging Routine Missed menses Expected: 04/17/2024 (Approximate), Expires: 04/17/2025 [facility] Comment on above: Expected: 04/17/2024 (Approximate), Expires: 04/17/2025 Start: 01-16-2024 End: 01-16-2024 Professional / ancillary services management 01/16/2024 10:00 AM EDT Ancillary Procedure [facility] [address] [place] [address] [facility] R CT Start: 01-11-2024 End: 01-10-2025 CT Abdomen and Pelvis WO contrast CT abdomen pelvis wo IV contrast Imaging Routine Other microscopic hematuria Expected: 01/11/2024, Expires: 01/10/2025 [facility] Work Phone: Comment on above: Expected: 01/11/2024 , Expires: 01/10/2025 Bacteria identified in Urine by Culture Urine culture Microbiology Routine Missed menses Ordered: 04/17/2024 [facility] Comment on above: Ordered: 04/17/2024 CBC W Auto Different ial panel - Blood CBC and differential Lab Routine Missed menses , unspecified gestational age Ordered: 04/17/2024 [facility] Comment on above: Ordered: 04/17/2024 CHLAMYDIA TRACHOMATI S (GENITO/STI) CHLAMYDIA TRACHOMATIS (GENITO/STI) Lab Routine Screening examination for STI Ordered: 06/17/2024 [facility] Comment on above: Ordered: 06/17/2024 Hemoglobin A1c/Hemoglobin.total in Blood Hemoglobin A1c Lab Routine Missed menses , unspecified gestational age Ordered: 04/17/2024 [facility] Comment on above: Ordered: 04/17/2024 Hemoglobin A1c/Hemoglobin.total in Blood Hemoglobin A1c Lab Routine 22 weeks gestation of Second trimester Diabetes mellitus screening History of gastric bypass Ordered: 07/16/2024 [facility] Comment on above: Ordered: 07/16/2024 Hepatitis B virus surface Ag [Presence] in Serum or Plasma by Immunoassay Hepatitis B surface antigen Lab Routine Missed menses , unspecified gestational age Ordered: 04/17/2024 [facility] Comment on above: Ordered: 04/17/2024 Hepatitis C virus Ab [Presence] in Serum or Plasma by Immunoassay Hepatitis C antibody Lab Routine Missed menses , unspecified gestational age Ordered: 04/17/2024 [facility] Comment on above: Ordered: 04/17/2024 HIV-1/HIV-2 antigen/antibody combination immunoassay HIV-1 and HIV-2 antibodies Lab Routine Missed menses , unspecified gestational age Ordered: 04/17/2024 [facility] Comment on above: Ordered: 04/17/2024 Neisseria gonorrhoea e DNA [Presence] in Unspecified specimen by DEZ with probe detection Neisseria gonorrhea DNA probe, direct Lab Routine Screening examination for STI Ordered: 06/17/2024 [facility] Comment on above: Ordered: 06/17/2024 Reagin Ab [Presence] in Serum by RPR RPR Lab Routine Missed menses , unspecified gestational age Ordered: 04/17/2024 [facility] Comment on above: Ordered: 04/17/2024 Rubella antibody, IgG Rubella an tibody, IgG Lab Routine Missed menses , unspecified gestational age Ordered: 04/17/2024 [facility] Comment on above: Ordered: 04/17/2024 SURESWAB(R) ADVANCED VAGINITIS PLUS, TMA SURESWAB(R) ADVANCED VAGINITIS PLUS, TMA Pathology and Cytology Routine Screening examination for STI Ordered: 06/17/2024 [facility] Work Phone: Comment on above: Ordered: 06/17/2024 Immunizations Immunization Date Immunization Notes Care Provider Saúl mendieta 05-03-2020 influenza, injectabl e, quadrivalent, contains preservative Xena Mccallum MD Work Phone: [facility] 05-03-2020 influenza virus vacc ine, unspecified formulation Xena Mccallum MD Work Phone: [facility] 01-29-2018 influenza, injectabl e, quadrivalent, contains preservative Xena Mccallum MD Work Phone: [facility] 02-21-2016 influenza, seasonal, injectable, preservative free Xena Mccallum MD Work Phone: [facility] Payers Date Payer Category Payer [facility] [id number] 2023 Unknown [id number] 2022 Medicaid [facility] MEDICAID [place] [employer] [id number] 2022-Present [address] [place] [id number] 2022 Medicaid (Managed Care) [employer] [id number] 1995 Unknown [id number] 2.16.840.1.541822.3.579.2. 593 1995 Unknown [id number] 2.16.840.1.621535.3.579.2. 593 1995 Unknown [id number] 2.16.840.1.134494.3.579.2. 593 1995 Unknown [id number] 2.16.840.1.781982.3.579.2. 593 1995 Unknown [id number] 2.16.840.1.687795.3.579.2. 593 1995 Unknown [id number] 2.16.840.1.995159.3.579.2. 593 1995 Unknown [id number] 2.16.840.1.781098.3.579.2. 593 1995 Unknown [id number] 2.16.840.1.245133.3.579.2. 593 1995 Unknown [id number] 2.16.840.1.258198.3.579.2. 593 1995 Unknown [id number] 2.16.840.1.521873.3.579.2. 727 1995 Unknown [id number] 2.16.840.1.245468.3.579.2. 1259 1995 Unknown [id number] 2.16.840.1.362985.3.579.2. 1259 1995 Unknown [id number] 2.16.840.1.225607.3.579.2. 1259 1995 Unknown [id number] 2.16.840.1.405946.3.579.2. 1259 1995 Unknown [id number] 2.16.840.1.532016.3.579.2. 1259 1995 Unknown [id number] 2.16.840.1.949648.3.579.2. 1259 1995 Unknown [id number] 2.16.840.1.441759.3.579.2. 1259 1995 Unknown [id number] 2.16.840.1.999376.3.579.2. 1259 1995 Unknown [id number] 2.16.840.1.629335.3.579.2. 9 1995 Unknown [id number] 2.16.840.1.626583.3.579.2. 9 1995 Unknown [id number] 2.16.840.1.825987.3.579.2. 9 1995 Unknown [id number] 2.16.840.1.904117.3.579.2. 1259 1959 Self-pay [id number] 1959 Unknown [id number] Social History Date Type Detail Facility Start: 04-29-2020 End: 06-18-2023 Tobacco smoking status Never smoked tobacco (finding) [facility] Comment on above: Pt. denies Tobacco smoking status Never [facility] Comment on above: Pt. denies Start: 06-18-2023 End: 01-13-2024 Sex Assigned At Female [facility] Start: 06-18-2023 Tobacco use and exposure Smokeless tobacco non-user [facility] Start: 01-13-2024 End: 09-08-2024 Alcoholic beverage intake Current drinker of alcohol (finding) [facility] Start: 06-18-2023 End: 01-13-2024 History of Social function [facility] How [...] at Not on file [facility] Start: 02-27-2024 [facility] Clinical Notes 05-11-2021 to 09-23-2024 Thelma Perry, PRINCIPAL CONSULTING ENGINEER - 09/23/2024 11:30 AM EDLorenzoThelma Perry, PRINCIPAL CONSULTING ENGINEER - 09/08/2024 9:20 AM EDJujuaye Omkarryanr, PRINCIPAL CONSULTING ENGINEER - 08/13/2024 9:10 AM EDTSusaaye Spitler, PRINCIPAL CONSULTING ENGINEER - 07/16/2024 8:50 AM EDT Note Date & Type Note Facility 09-23-2024 History of Presen t illness Narrative Reason for Appointment: Patient ID: Tan Mars is a 29 y.o. female who presents for Routine Visit Patient presents today for Return OB appointment. MEDICATIONS Current Outpatient Medications Medication Instructions busPIRone (BUSPAR) 10 mg, Oral, Daily PRN, Taking half a tablet Calcium Carbonate (CALCIUM 500 PO) 1 tablet, Daily citalopram (CELEXA) 20 mg, Oral, Daily cyclobenzaprine (FLEXERIL) 5 mg, Oral, 2 times daily PRN Ferrous Sulfate (iron) 325 (65 Fe) MG tablet 1 tablet, Daily magnesium oxide (MAG-OX) 600 mg, Oral, Daily MV-Min-Fe Fum-FA-DHA ( 1 PO) 1 tablet, Daily promethazine (PHENERGAN) 12.5 mg, Oral, Every 6 hours PRN, Take 1 tablet by mouth every 6 hours as needed for nausea. ALLERGIES Allergies Allergen Reactions Clindamycin Swelling Other Reaction(s): Tongue swelling Lamotrigine Other Reaction(s): worsened depression Morphine Hives Penicillins Rash and Unknown PROBLEMS Active Ambulatory Problems Diagnosis Date Noted Depression ([facility]) 06/18/2023 Anemia 06/18/2023 Anxiety 06/18/2023 Recurrent nephrolithiasis 09/05/2016 Essential thrombocythemia (CMS/HCC) 06/18/2023 Gastric bypass status for obesity 08/10/2021 Gastroesophageal reflux disease 06/18/2023 Iron deficiency anemia secondary to inadequate dietary iron intake 08/10/2021 Insomnia 06/18/2023 22 weeks gestation of 07/16/2024 Second trimester 07/16/2024 Resolved Ambulatory Problems Diagnosis Date Noted No Resolved Ambulatory Problems Past Medical History: Diagnosis Date Gallstones H/O left wrist surgery History of ankle surgery Kidney stones Metal plate in upper extremity Nephrolithiasis Pneumonia 2017 HISTORY PAST MEDICAL HISTORY SOCIAL HISTORY Past Medical History: Diagnosis Date Gallstones H/O left wrist surgery tendons repaired History of ankle surgery R ankle tendons repaired Kidney stones Metal plate in upper extremity L elbow Nephrolithiasis Pneumonia 2017 Social History Tobacco Use Smoking status: Never Smokeless tobacco: Never Substance Use Topics Alcohol use: Yes Comment: caffeine: 1-2 cups per day Drug use: Never FAMILY HISTORY Family History Problem Relation Name Age of Onset Hypertension Mother Asthma Mother Kidney failure Father Diabetes Father Hypertension Father Heart disease Father Alcohol abuse Father Cancer Other Grandparents Stroke Other Grandparents SURGICAL HISTORY Past Surgical History: Procedure Laterality Date BARIATRIC SURGERY 07/2018 CHOLECYSTECTOMY 05/2014 Laparoscopic COSMETIC SURGERY 05/17/2020 [facility] in [place] ELBOW SURGERY Left 2000 OTHER SURGICAL HISTORY 2015 kidney stent WRIST SURGERY Left 2000 REVIEW OF SYSTEMS Review of Systems: Review of Systems Constitutional: Negative. HENT: Negative. Eyes: Negative. Respiratory: Negative. Cardiovascular: Negative. Gastrointestinal: Negative. Genitourinary: Negative. Musculoskeletal: Negative. Skin: Negative. Neurological: Negative. All other systems reviewed and are negative. Hematological: Negative. Endocrine: Negative. Allergic/Immunologic: Negative. OBJECTIVE Objective: Physical Exam Constitutional: Appearance: Normal appearance. She is well-developed. Cardiovascular: Rate and Rhythm: Normal rate and regular rhythm. Pulmonary: Effort: Pulmonary effort is normal. Breath sounds: Normal breath sounds. Abdominal: General: Bowel sounds are normal. There is no distension. Palpations: Abdomen is soft. Tenderness: There is no abdominal tenderness. There is no guarding or rebound. Musculoskeletal: General: No swelling. Normal range of motion. Right lower leg: No edema. Left lower leg: No edema. Neurological: Mental Status: She is alert and oriented to person, place, and time. Skin: General: Skin is warm and dry. Psychiatric: Mood and Affect: Mood normal. Behavior: Behavior normal. Vitals and nursing note reviewed. Exam conducted with a tag marker present. Vitals: Estimated body mass index is 33.09 kg/m as calculated from the following: Height as of 01/09/24: 5' 1 . Weight as of this encounter: 175 lb 1.9 oz. BP: 110/74 Patient's last menstrual period was 02/13/2024. ASSESSMENT & PLAN ICD-10-CM 1. 31 weeks gestation of Z3A.31 POCT urinalysis dipstick manually resulted 2. Third trimester Z34.93 POCT urinalysis dipstick manually resulted Return OB: Patient presents today for a routine obstetrics appointment. Patient is currently 31w6d . Patient states she is doing well but has complaints of being tired due to current . Patient has verbalizes frequent movement. labor precautions was discussed/given and patient was instructed to perform kick counts three times a day. Pt feeling better being on Celexa. Orders Placed This Encounter Procedures POCT urinalysis dipstick manually resulted Follow Up: Patient is to return to office in 2 week for routine OB appointment. Documented by Thelma Perry LPN on behalf of: Douglas Lewis DO documented in this encounter [facility] 09-08-2024 History of Presen t illness Narrative Reason for Appointment: Patient ID: Tan Mars is a 29 y.o. female who presents for Routine Visit Patient presents today for Return OB appointment. MEDICATIONS Current Outpatient Medications Medication Instructions busPIRone (BUSPAR) 10 mg, Oral, Daily PRN, Taking half a tablet magnesium oxide (MAG-OX) 600 mg, Oral, Daily promethazine (PHENERGAN) 12.5 mg, Oral, Every 6 hours PRN, Take 1 tablet by mouth every 6 hours as needed for nausea. tiZANidine (ZANAFLEX) 4 mg, Oral, Nightly PRN topiramate (TOPAMAX) 25 mg, Oral, 2 times daily Ubrelvy 100 mg, Oral, Daily ALLERGIES Allergies Allergen Reactions Clindamycin Swelling Other Reaction(s): Tongue swelling Lamotrigine Other Reaction(s): worsened depression Morphine Hives Penicillins Rash and Unknown PROBLEMS Active Ambulatory Problems Diagnosis Date Noted Depression ([facility]) 06/18/2023 Anemia 06/18/2023 Anxiety 06/18/2023 Recurrent nephrolithiasis 09/05/2016 Essential thrombocythemia ([facility]) 06/18/2023 Gastric bypass status for obesity 08/10/2021 Gastroesophageal reflux disease 06/18/2023 Iron deficiency anemia secondary to inadequate dietary iron intake 08/10/2021 Insomnia 06/18/2023 22 weeks gestation of 07/16/2024 Second trimester 07/16/2024 Resolved Ambulatory Problems Diagnosis Date Noted No Resolved Ambulatory Problems Past Medical History: Diagnosis Date Gallstones H/O left wrist surgery History of ankle surgery Kidney stones Metal plate in upper extremity Nephrolithiasis Pneumonia 2017 HISTORY PAST MEDICAL HISTORY SOCIAL HISTORY Past Medical History: Diagnosis Date Gallstones H/O left wrist surgery tendons repaired History of ankle surgery R ankle tendons repaired Kidney stones Metal plate in upper extremity L elbow Nephrolithiasis Pneumonia 2017 Social History Tobacco Use Smoking status: Never Smokeless tobacco: Never Substance Use Topics Alcohol use: Yes Comment: caffeine: 1-2 cups per day Drug use: Never FAMILY HISTORY Family History Problem Relation Name Age of Onset Hypertension Mother Asthma Mother Kidney failure Father Diabetes Father Hypertension Father Heart disease Father Alcohol abuse Father Cancer Other Grandparents Stroke Other Grandparents SURGICAL HISTORY Past Surgical History: Procedure Laterality Date BARIATRIC SURGERY 07/2018 CHOLECYSTECTOMY 05/2014 Laparoscopic COSMETIC SURGERY 05/17/2020 [facility] [place] ELBOW SURGERY Left 2000 OTHER SURGICAL HISTORY 2015 kidney stent WRIST SURGERY Left 2000 REVIEW OF SYSTEMS Review of Systems: Review of Systems Constitutional: Negative. HENT: Negative. Eyes: Negative. Respiratory: Negative. Cardiovascular: Negative. Gastrointestinal: Negative. Genitourinary: Negative. Musculoskeletal: Negative. Skin: Negative. Neurological: Positive for headaches. All other systems reviewed and are negative. Hematological: Negative. Endocrine: Negative. Allergic/Immunologic: Negative. OBJECTIVE Objective: Physical Exam Constitutional: Appearance: Normal appearance. She is well-developed. Cardiovascular: Rate and Rhythm: Normal rate and regular rhythm. Pulmonary: Effort: Pulmonary effort is normal. Breath sounds: Normal breath sounds. Abdominal: General: Bowel sounds are normal. There is no distension. Palpations: Abdomen is soft. Tenderness: There is no abdominal tenderness. There is no guarding or rebound. Musculoskeletal: General: No swelling. Normal range of motion. Right lower leg: No edema. Left lower leg: No edema. Neurological: Mental Status: She is alert and oriented to person, place, and time. Skin: General: Skin is warm and dry. Psychiatric: Mood and Affect: Mood normal. Behavior: Behavior normal. Vitals and nursing note reviewed. Exam conducted with a tag marker present. Vitals: Estimated body mass index is 32.88 kg/m as calculated from the following: Height as of 24: 5' 1 . Weight as of this encounter: 174 lb. BP: 112/70 Patient's last menstrual period was 02/13/2024. ASSESSMENT & PLAN ICD-10-CM 1. Third trimester Z34.93 2. 29 weeks gestation of Z3A.29 Return OB: Patient presents today for a routine obstetrics appointment. Patient is currently 29w5d . Patient states she is doing well but has complaints of being tired due to current . Patient has verbalizes frequent movement. labor precautions was discussed/given and patient was instructed to perform kick counts three times a day. Pt given NST/BPP and growth ultrasound to have scheduled. Pt has racing thoughts and frequent crying. Pt denies suicidal and homicidal ideations. Rx for celexa faxed to pharmacy. No orders of the defined types were placed in this encounter. Follow Up: Patient is to return to office in 2 week for routine OB appointment. Documented by Thelma Perry LPN on behalf of: Douglas Lewis DO documented in this encounter [facility] 08-13-2024 History of Presen t illness Narrative Reason for Appointment: Patient ID: Tan Mars is a 29 y.o. female who presents for Routine Visit Patient presents today for Return OB appointment. MEDICATIONS Current Outpatient Medications Medication Instructions busPIRone (BUSPAR) 10 mg, Oral, Daily PRN, Taking half a tablet cyclobenzaprine (FLEXERIL) 5 mg, Oral, 2 times daily magnesium oxide (MAG-OX) 600 mg, Oral, Daily promethazine (PHENERGAN) 12.5 mg, Oral, Every 6 hours PRN, Take 1 tablet by mouth every 6 hours as needed for nausea. tiZANidine (ZANAFLEX) 4 mg, Oral, Nightly PRN topiramate (TOPAMAX) 25 mg, Oral, 2 times daily Ubrelvy 100 mg, Oral, Daily ALLERGIES Allergies Allergen Reactions Clindamycin Swelling Other Reaction(s): Tongue swelling Lamotrigine Other Reaction(s): worsened depression Morphine Hives Penicillins Rash and Unknown PROBLEMS Active Ambulatory Problems Diagnosis Date Noted Depression ([facility]) 06/18/2023 Anemia 06/18/2023 Anxiety 06/18/2023 Recurrent nephrolithiasis 09/05/2016 Essential thrombocythemia ([facility]) 06/18/2023 Gastric bypass status for obesity 08/10/2021 Gastroesophageal reflux disease 06/18/2023 Iron deficiency anemia secondary to inadequate dietary iron intake 08/10/2021 Insomnia 06/18/2023 22 weeks gestation of 07/16/2024 Second trimester 07/16/2024 Resolved Ambulatory Problems Diagnosis Date Noted No Resolved Ambulatory Problems Past Medical History: Diagnosis Date Gallstones H/O left wrist surgery History of ankle surgery Kidney stones Metal plate in upper extremity Nephrolithiasis Pneumonia 2017 HISTORY PAST MEDICAL HISTORY SOCIAL HISTORY Past Medical History: Diagnosis Date Gallstones H/O left wrist surgery tendons repaired History of ankle surgery R ankle tendons repaired Kidney stones Metal plate in upper extremity L elbow Nephrolithiasis Pneumonia 2016 Social History Tobacco Use Smoking status: Never Smokeless tobacco: Never Substance Use Topics Alcohol use: Yes Comment: caffeine: 1-2 cups per day Drug use: Never FAMILY HISTORY Family History Problem Relation Name Age of Onset Hypertension Mother Asthma Mother Kidney failure Father Diabetes Father Hypertension Father Heart disease Father Alcohol abuse Father Cancer Other Grandparents Stroke Other Grandparents SURGICAL HISTORY Past Surgical History: Procedure Laterality Date BARIATRIC SURGERY 07/2018 CHOLECYSTECTOMY 05/2014 Laparoscopic COSMETIC SURGERY 05/17/2020 [facility] [place] ELBOW SURGERY Left 2000 OTHER SURGICAL HISTORY 2015 kidney stent WRIST SURGERY Left 2000 REVIEW OF SYSTEMS Review of Systems: Review of Systems Constitutional: Negative. HENT: Negative. Eyes: Negative. Respiratory: Negative. Cardiovascular: Negative. Gastrointestinal: Negative. Genitourinary: Negative. Musculoskeletal: Negative. Skin: Negative. Neurological: Negative. All other systems reviewed and are negative. Hematological: Negative. Endocrine: Negative. Allergic/Immunologic: Negative. OBJECTIVE Objective: Physical Exam Constitutional: Appearance: Normal appearance. She is well-developed. Cardiovascular: Rate and Rhythm: Normal rate and regular rhythm. Pulmonary: Effort: Pulmonary effort is normal. Breath sounds: Normal breath sounds. Abdominal: General: Bowel sounds are normal. There is no distension. Palpations: Abdomen is soft. Tenderness: There is no abdominal tenderness. There is no guarding or rebound. Musculoskeletal: General: No swelling. Normal range of motion. Right lower leg: No edema. Left lower leg: No edema. Neurological: Mental Status: She is alert and oriented to person, place, and time. Skin: General: Skin is warm and dry. Psychiatric: Mood and Affect: Mood normal. Behavior: Behavior normal. Vitals and nursing note reviewed. Exam conducted with a tag marker present. Vitals: Estimated body mass index is 32.08 kg/m as calculated from the following: Height as of 24: 5' 1 . Weight as of this encounter: 169 lb 12.8 oz. BP: 116/76 Patient's last menstrual period was 02/13/2024. ASSESSMENT & PLAN ICD-10-CM 1. Second trimester Z34.92 2. 26 weeks gestation of Z3A.26 Patient presents today for a routine obstetrics appointment. Patient is currently 26w0d with a Estimated Date of Delivery: 11/19/24. Patient to return to clinic in 2-3 weeks for routine appointment. Patient voiced just being in general uncomfortable with normal movements. Discussed growth scans, NST/BPP's will start around 32 weeks gestation. Patient is trying to incorporate different foods to help with recent constipation. Documented by Noemy Zapata LPN on behalf of: Douglas Lewis DO documented in this encounter [facility] 07-16-2024 History of Presen t illness Narrative Reason for Appointment: Patient ID: Tan Mars is a 29 y.o. female who presents for No chief complaint on file. Patient presents today for Return OB appointment. MEDICATIONS Current Outpatient Medications Medication Instructions busPIRone (BUSPAR) 10 mg, Oral, Daily PRN, Taking half a tablet magnesium oxide (MAG-OX) 400 mg, Oral, Daily promethazine (PHENERGAN) 12.5 mg, Oral, Every 6 hours PRN, Take 1 tablet by mouth every 6 hours as needed for nausea. tiZANidine (ZANAFLEX) 4 mg, Oral, Nightly PRN topiramate (TOPAMAX) 25 mg, Oral, 2 times daily Ubrelvy 100 mg, Oral, Daily ALLERGIES Allergies Allergen Reactions Clindamycin Swelling Other Reaction(s): Tongue swelling Lamotrigine Other Reaction(s): worsened depression Morphine Hives Penicillins Rash and Unknown PROBLEMS Active Ambulatory Problems Diagnosis Date Noted Depression ([facility]) 06/18/2023 Anemia 06/18/2023 Anxiety 06/18/2023 Recurrent nephrolithiasis 09/05/2016 Essential thrombocythemia ([facility]) 06/18/2023 Gastric bypass status for obesity 08/10/2021 Gastroesophageal reflux disease 06/18/2023 Iron deficiency anemia secondary to inadequate dietary iron intake 08/10/2021 Insomnia 06/18/2023 22 weeks gestation of 07/16/2024 Second trimester 07/16/2024 Resolved Ambulatory Problems Diagnosis Date Noted No Resolved Ambulatory Problems Past Medical History: Diagnosis Date Gallstones H/O left wrist surgery History of ankle surgery Kidney stones Metal plate in upper extremity Nephrolithiasis Pneumonia 2017 HISTORY PAST MEDICAL HISTORY SOCIAL HISTORY Past Medical History: Diagnosis Date Gallstones H/O left wrist surgery tendons repaired History of ankle surgery R ankle tendons repaired Kidney stones Metal plate in upper extremity L elbow Nephrolithiasis Pneumonia 2016 Social History Tobacco Use Smoking status: Never Smokeless tobacco: Never Substance Use Topics Alcohol use: Yes Comment: caffeine: 1-2 cups per day Drug use: Never FAMILY HISTORY Family History Problem Relation Name Age of Onset Hypertension Mother Asthma Mother Kidney failure Father Diabetes Father Hypertension Father Heart disease Father Alcohol abuse Father Cancer Other Grandparents Stroke Other Grandparents SURGICAL HISTORY Past Surgical History: Procedure Laterality Date BARIATRIC SURGERY 07/2018 CHOLECYSTECTOMY 05/2014 Laparoscopic COSMETIC SURGERY 05/17/2020 [facility] in [place] ELBOW SURGERY Left 1999 OTHER SURGICAL HISTORY 2014 kidney stent WRIST SURGERY Left 2000 REVIEW OF SYSTEMS Review of Systems: Review of Systems Musculoskeletal: Leg cramps Neurological: Positive for headaches. All other systems reviewed and are negative. OBJECTIVE Objective: Physical Exam Constitutional: Appearance: Normal appearance. She is well-developed. Cardiovascular: Rate and Rhythm: Normal rate and regular rhythm. Pulmonary: Effort: Pulmonary effort is normal. Breath sounds: Normal breath sounds. Abdominal: General: Bowel sounds are normal. There is no distension. Palpations: Abdomen is soft. Tenderness: There is no abdominal tenderness. There is no guarding or rebound. Musculoskeletal: General: No swelling. Normal range of motion. Right lower leg: No edema. Left lower leg: No edema. Neurological: Mental Status: She is alert and oriented to person, place, and time. Skin: General: Skin is warm and dry. Psychiatric: Mood and Affect: Mood normal. Behavior: Behavior normal. Vitals and nursing note reviewed. Exam conducted with a tag marker present. Vitals: Estimated body mass index is 30.42 kg/m as calculated from the following: Height as of 01/09/24: 5' 1 . Weight as of 06/17/24: 161 lb. BP: Patient's last menstrual period was 02/13/2024. ASSESSMENT & PLAN ICD-10-CM 1. 22 weeks gestation of Z3A.22 POCT urinalysis dipstick manually resulted CBC Glucose tolerance, 1 hour CBC Glucose tolerance, 1 hour 2. Second trimester Z34.92 POCT urinalysis dipstick manually resulted CBC Glucose tolerance, 1 hour CBC Glucose tolerance, 1 hour 3. Diabetes mellitus screening Z13.1 CBC Glucose tolerance, 1 hour CBC Glucose tolerance, 1 hour Patient presents today for a routine obstetrics appointment. Patient is currently 22w0d with a Estimated Date of Delivery: 11/19/24. Patient complaints of bilateral leg cramps (mainly left leg)that keep her up throughout the night. Patient also voiced she has not had much of an appetite. Discussed Compression Stockings to see if it symptoms improve. Patient advised to increase Magnesium by 1/2 tablet daily. Discussed Warm/heat compress as well on calf muscles. Patient given orders to have A1c & CBC done as patient has history of gastric sleeve w/ revision Bypass. Patient to return to clinic in 4 weeks. Documented by Noemy Zapata LPN on behalf of Maddie Harp PA-C documented in this encounter [facility] 06-17-2024 History of Presen t illness Narrative Reason for Appointment: Patient ID: Tan Mars is a 29 y.o. female who presents for Routine Visit Patient presents today for STD Check. and Return OB appointment. MEDICATIONS Current Outpatient Medications Medication Instructions busPIRone (BUSPAR) 10 mg, Oral, Daily PRN, Taking half a tablet tiZANidine (ZANAFLEX) 4 mg, Oral, Nightly PRN topiramate (TOPAMAX) 25 mg, Oral, 2 times daily Ubrelvy 100 mg, Oral, Daily ALLERGIES Allergies Allergen Reactions Clindamycin Swelling Other Reaction(s): Tongue swelling Lamotrigine Other Reaction(s): worsened depression Morphine Hives Penicillins Rash and Unknown PROBLEMS Active Ambulatory Problems Diagnosis Date Noted Depression ([facility]) 06/18/2023 Anemia 06/18/2023 Anxiety 06/18/2023 Recurrent nephrolithiasis 09/05/2016 Essential thrombocythemia ([facility]) 06/18/2023 Gastric bypass status for obesity 08/10/2021 Gastroesophageal reflux disease 06/18/2023 Iron deficiency anemia secondary to inadequate dietary iron intake 08/10/2021 Insomnia 06/18/2023 Resolved Ambulatory Problems Diagnosis Date Noted No Resolved Ambulatory Problems Past Medical History: Diagnosis Date Gallstones H/O left wrist surgery History of ankle surgery Kidney stones Metal plate in upper extremity Nephrolithiasis Pneumonia 2017 HISTORY PAST MEDICAL HISTORY SOCIAL HISTORY Past Medical History: Diagnosis Date Gallstones H/O left wrist surgery tendons repaired History of ankle surgery R ankle tendons repaired Kidney stones Metal plate in upper extremity L elbow Nephrolithiasis Pneumonia 2016 Social History Tobacco Use Smoking status: Never Smokeless tobacco: Never Substance Use Topics Alcohol use: Yes Comment: caffeine: 1-2 cups per day Drug use: Never FAMILY HISTORY Family History Problem Relation Name Age of Onset Hypertension Mother Asthma Mother Kidney failure Father Diabetes Father Hypertension Father Heart disease Father Alcohol abuse Father Cancer Other Grandparents Stroke Other Grandparents SURGICAL HISTORY Past Surgical History: Procedure Laterality Date BARIATRIC SURGERY 07/2018 CHOLECYSTECTOMY 05/2014 Laparoscopic COSMETIC SURGERY 05/17/2020 [facility] [place] ELBOW SURGERY Left 1999 OTHER SURGICAL HISTORY 2014 kidney stent WRIST SURGERY Left 2000 REVIEW OF SYSTEMS Review of Systems: Review of Systems Constitutional: Negative. HENT: Negative. Eyes: Negative. Respiratory: Negative. Cardiovascular: Negative. Gastrointestinal: Negative. Genitourinary: Negative. Musculoskeletal: Negative. Skin: Negative. Neurological: Negative. All other systems reviewed and are negative. Hematological: Negative. Endocrine: Negative. Allergic/Immunologic: Negative. OBJECTIVE Objective: Physical Exam Constitutional: Appearance: Normal appearance. Genitourinary: Right Adnexa: not tender and no mass present. Left Adnexa: not tender and no mass present. No cervical discharge. Breasts: Breasts are soft. Right: Normal. Left: Normal. HENT: Head: Normocephalic. Nose: Nose normal. Mouth/Throat: Mouth: Mucous membranes are moist. Cardiovascular: Rate and Rhythm: Normal rate. Pulmonary: Effort: Pulmonary effort is normal. Abdominal: General: Bowel sounds are normal. Palpations: Abdomen is soft. Musculoskeletal: General: Normal range of motion. Cervical back: Normal range of motion. Neurological: General: No focal deficit present. Mental Status: She is alert. Skin: General: Skin is warm and dry. Psychiatric: Mood and Affect: Mood normal. Vitals and nursing note reviewed. Exam conducted with a tag marker present. Vitals: Estimated body mass index is 30.42 kg/m as calculated from the following: Height as of 24: 5' 1 . Weight as of this encounter: 161 lb. BP: 112/72 Patient's last menstrual period was 02/13/2024. ASSESSMENT & PLAN ICD-10-CM 1. Second trimester Z34.92 POCT urinalysis dipstick manually resulted 2. 17 weeks gestation of Z3A.17 3. Need for maternal serum alpha-protein (MSAFP) screening Z36.1 Alpha fetoprotein, maternal Alpha fetoprotein, maternal 4. Screening examination for STI Z11.3 SURESWAB(R) ADVANCED VAGINITIS PLUS, TMA CHLAMYDIA TRACHOMATIS (GENITO/STI) Neisseria gonorrhea DNA probe, direct 5. Screening, , for anatomic survey Z36.89 US OB 14+ weeks anatomy scan 6. Nausea R11.0 7. Nonintractable headache, unspecified chronicity pattern, unspecified headache type R51.9 Annual Exam: Patient presents today for an Cx visit, patient has her annual set up for after her 6 week post . Patient states she is doing well and has no complaints. Cx's were obtained without difficulty. Orders Placed This Encounter Procedures US OB 14+ weeks anatomy scan CHLAMYDIA TRACHOMATIS (GENITO/STI) Neisseria gonorrhea DNA probe, direct Alpha fetoprotein, maternal POCT urinalysis dipstick manually resulted Follow Up: Patient is to return in one year for annual unless needed otherwise. Documented by Cecy Nicholas MA on behalf of: KYLE Martinez documented in this encounter [facility] 01-22-2025 History of Presen t illness Narrative Reason for Appointment: Patient ID: Tan MARS is a 29 y.o. female who presents for Routine Visit Patient presents today for Return OB appointment. MEDICATIONS Current Outpatient Medications Medication Instructions busPIRone (BUSPAR) 10 mg, Oral, Daily PRN, Taking half a tablet tiZANidine (ZANAFLEX) 4 mg, Oral, Nightly PRN topiramate (TOPAMAX) 25 mg, Oral, 2 times daily Ubrelvy 100 mg, Oral, Daily ALLERGIES Allergies Allergen Reactions Clindamycin Swelling Other Reaction(s): Tongue swelling Lamotrigine Other Reaction(s): worsened depression Morphine Hives Penicillins Rash and Unknown PROBLEMS Active Ambulatory Problems Diagnosis Date Noted Depression ([facility]) 06/18/2023 Anemia 06/18/2023 Anxiety 06/18/2023 Recurrent nephrolithiasis 09/05/2016 Essential thrombocythemia ([facility]) 06/18/2023 Gastric bypass status for obesity 08/10/2021 Gastroesophageal reflux disease 06/18/2023 Iron deficiency anemia secondary to inadequate dietary iron intake 08/10/2021 Insomnia 06/18/2023 Resolved Ambulatory Problems Diagnosis Date Noted No Resolved Ambulatory Problems Past Medical History: Diagnosis Date Gallstones H/O left wrist surgery History of ankle surgery Kidney stones Metal plate in upper extremity Nephrolithiasis Pneumonia 2017 HISTORY PAST MEDICAL HISTORY SOCIAL HISTORY Past Medical History: Diagnosis Date Gallstones H/O left wrist surgery tendons repaired History of ankle surgery R ankle tendons repaired Kidney stones Metal plate in upper extremity L elbow Nephrolithiasis Pneumonia 2016 Social History Tobacco Use Smoking status: Never Smokeless tobacco: Never Substance Use Topics Alcohol use: Yes Comment: caffeine: 1-2 cups per day Drug use: Never FAMILY HISTORY Family History Problem Relation Name Age of Onset Hypertension Mother Asthma Mother Kidney failure Father Diabetes Father Hypertension Father Heart disease Father Alcohol abuse Father Cancer Other Grandparents Stroke Other Grandparents SURGICAL HISTORY Past Surgical History: Procedure Laterality Date BARIATRIC SURGERY 07/2018 CHOLECYSTECTOMY 05/2014 Laparoscopic COSMETIC SURGERY 05/17/2020 [facility] [place] ELBOW SURGERY Left 1999 OTHER SURGICAL HISTORY 2015 kidney stent WRIST SURGERY Left 2000 REVIEW OF SYSTEMS Review of Systems: Review of Systems Constitutional: Negative. HENT: Negative. Eyes: Negative. Respiratory: Negative. Cardiovascular: Negative. Gastrointestinal: Negative. Genitourinary: Negative. Musculoskeletal: Negative. Skin: Negative. Neurological: Negative. All other systems reviewed and are negative. Hematological: Negative. Endocrine: Negative. Allergic/Immunologic: Negative. OBJECTIVE Objective: Physical Exam Constitutional: Appearance: Normal appearance. She is well-developed. Cardiovascular: Rate and Rhythm: Normal rate and regular rhythm. Pulmonary: Effort: Pulmonary effort is normal. Breath sounds: Normal breath sounds. Abdominal: General: Bowel sounds are normal. There is no distension. Palpations: Abdomen is soft. Tenderness: There is no abdominal tenderness. There is no guarding or rebound. Musculoskeletal: General: No swelling. Normal range of motion. Right lower leg: No edema. Left lower leg: No edema. Neurological: Mental Status: She is alert and oriented to person, place, and time. Skin: General: Skin is warm and dry. Psychiatric: Mood and Affect: Mood normal. Behavior: Behavior normal. Vitals and nursing note reviewed. Exam conducted with a tag marker present. Vitals: Estimated body mass index is 29.55 kg/m as calculated from the following: Height as of 01/09/24: 5' 1 . Weight as of this encounter: 156 lb 6.4 oz. BP: 102/70 Patient's last menstrual period was 02/13/2024. ASSESSMENT & PLAN ICD-10-CM 1. First trimester Z34.91 POCT urinalysis dipstick manually resulted 2. 13 weeks gestation of Z3A.13 New OB: Patient presents today for 1st time obstetrics appointment with provider. Patient is currently 13w6d . Patients history has been reviewed in great detail including any potential risks. Patient stated she currently has no complaints. Expectations throughout regarding labs, ultrasounds, and appointments have been discussed with the patient in detail. It was reiterated that the patient is to drink 6-8 glasses of water a day, eat 6 small meals a day, do not consume raw or undercooked meat, and stay away from [facility] [place]. Patient has been consulted regarding any further do's and don'ts of . Patient voiced understanding and all questions and concerns were answered. Orders Placed This Encounter Procedures POCT urinalysis dipstick manually resulted Follow Up: Patient is to return in 4 weeks for routine OB appointment. Documented by Thelma Perry LPN on behalf of: Douglas Lewis DO documented in this encounter [facility] 04-17-2024 History of Presen t illness Narrative Reason for Appointment: Patient ID: Tan MARS is a 29 y.o. female who presents for Amenorrhea Patient presents today for a Nurse OB Intake appointment. Patient is 9w1d with a Estimated Date of Delivery: 11/19/24 OB History Para Term AB Living 1 SAB IAB Ectopic Multiple Live Births # Outcome Date GA Lbr Abraham/2nd Weight Sex Type Anes PTL Lv 1 Current Current Medications: has a current medication list which includes the following prescription(s): buspirone, tizanidine, topiramate, and ubrelvy. Medical History: Active Ambulatory Problems Diagnosis Date Noted Depression ([facility]) 06/18/2023 Anemia 06/18/2023 Anxiety 06/18/2023 Recurrent nephrolithiasis 09/05/2016 Essential thrombocythemia ([facility]) 06/18/2023 Gastric bypass status for obesity 08/10/2021 Gastroesophageal reflux disease 06/18/2023 Iron deficiency anemia secondary to inadequate dietary iron intake 08/10/2021 Insomnia 06/18/2023 Resolved Ambulatory Problems Diagnosis Date Noted No Resolved Ambulatory Problems Past Medical History: Diagnosis Date Gallstones H/O left wrist surgery History of ankle surgery Kidney stones Metal plate in upper extremity Nephrolithiasis Pneumonia 2017 Family History Problem Relation Name Age of Onset Hypertension Mother Asthma Mother Kidney failure Father Diabetes Father Hypertension Father Heart disease Father Alcohol abuse Father Cancer Other Grandparents Stroke Other Grandparents Social History Tobacco Use Smoking status: Never Smokeless tobacco: Never Substance Use Topics Alcohol use: Yes Comment: caffeine: 1-2 cups per day Drug use: Never Past Surgical History: Procedure Laterality Date BARIATRIC SURGERY 07/2018 CHOLECYSTECTOMY 05/2014 Laparoscopic COSMETIC SURGERY 05/17/2020 [facility] [place] ELBOW SURGERY Left 1999 OTHER SURGICAL HISTORY 2014 kidney stent WRIST SURGERY Left 2000 Allergies Allergen Reactions Clindamycin Swelling Other Reaction(s): Tongue swelling Lamotrigine Other Reaction(s): worsened depression Morphine Hives Penicillins Rash and Unknown Vitals: Estimated body mass index is 28.72 kg/m as calculated from the following: Height as of 01/09/24: 5' 1 . Weight as of this encounter: 152 lb. BP: 118/70 Patient's last menstrual period was 02/13/2024. Assessment/Plan Diagnoses and all orders for this visit: Missed menses - Type and screen; Future - ABO/Rh; Future - CBC and differential - Hemoglobin A1c - RPR - Rubella antibody, IgG - Hepatitis B surface antigen - Hepatitis C antibody - HIV-1 and HIV-2 antibodies - Urine culture - US OB transvaginal; Future - POCT , urine manually resulted - POCT urinalysis dipstick manually resulted , unspecified gestational age - Type and screen; Future - ABO/Rh; Future - CBC and differential - Hemoglobin A1c - RPR - Rubella antibody, IgG - Hepatitis B surface antigen - Hepatitis C antibody - HIV-1 and HIV-2 antibodies - Rapid drug screen, urine; Future Encounter for supervision of normal first in first trimester - Rapid drug screen, urine; Future 9 weeks gestation of Nurse Note: OB Intake: Patient presents today for first OB visit. Patients history has been reviewed in great detail including any potential risks. Patient signed consent forms and patient desires testing in both trimesters. Patient currently has no complaints and has been advised to drink 6-8 glasses of water a day, eat no raw or undercooked meat, and stay away from [facility] [place]. Patient has also been advised to not change litter boxes and eat 6 small meals a day. Patient has been consulted regarding the do's and don'ts of . Patient was given labs and all questions and concerns were answered. Follow Up: Patient is to return in 4 weeks for routine OB appointment. Follow Up: Patient is to have labs drawn at directed and return to office for initial OB appointment with provider. Patient may call office as needed with any concerns or questions. Nurse Visit Completed by: Cecy Nicholas MA documented in this encounter [facility] 02-20-2024 Telephone encounter Note Approvals with refills [facility] 02-20-2024 Miscellaneous Notes Approvals with refills documented in this encounter [facility] 01-09-2024 History of Presen t illness Narrative [...] 07/2018 CHOLECYSTECTOMY 05/2014 Laparoscopic COSMETIC SURGERY 05/17/2020 [facility] in [place] ELBOW SURGERY Left 1999 OTHER SURGICAL HISTORY [...] Assessment & Plan documented in this encounter [facility] 01-09-2024 Telephone encounter Note Patient is losing her insurance any day now. Can you refill all these for 90 days? Uses [facility] [place]. She recently got and is switching to her husbands insurance. Thank you [facility] 01-09-2024 Miscellaneous Notes Patient is losing her insurance any day now. Can you refill all these for 90 days? [facility]ses [facility] [place]. She recently got and is switching to her husbands insurance. Thank you documented in this encounter [facility] 08-16-2021 [facility] Discharg e instructions Follow Up Care 08/16/2021 11:11:34 With:DESMOND BURKS, Scotty English, URL Address: [address] [place] [address]- When: Unknown [facility] 08-16-2021 Hospital Discharg e instructions Patient Education 08/16/2021 11:04:11 Kidney Stones, [id number] Kidney Stones Kidney stones are rock-like masses [...] Follow these instructions at home: Medicines Take kvgd-wme-iliziox and prescription medicines only as told by [...] 10/01/2008 Document Revised: 09/01/2019 Document Reviewed: 09/01/2019 [employer] Patient Education 2020 [employer]. 08/16/2021 11:04:10 Calorie Counting for Weight Loss [...] 04/15/2006 Document Revised: 01/02/2019 Document Reviewed: 03/15/2017 [employer] Patient Education 2020 [employer]. Follow Up Care 03/22/2021 11:46:26 With:DESMOND BURKS, Scotty Amador, URL Address: When:Within 6 Month(s) Comments:w/MAGALYS [facility] 05-11-2021 Note DISCHARGE SUMMARY PRIMARY DIAGNOSES: 1. [...] pain free and no longer on narcotics. [facility] Signed and Approved by: DR DOUGLAS LEWIS . 06/08/2021 22:19:00 [facility] 05-11-2021 Note OPERATIVE NOTE PROCEDURE: Primary low transverse section. PREOPERATIVE DIAGNOSIS: 1. Intrauterine at 39 weeks. 2. Non-reassuring heart tones. POSTOPERATIVE DIAGNOSIS: 1. Intrauterine at 39 weeks. 2. Non-reassuring heart tones. SURGEON: Douglas Lewis D.O. INTERVENTIONAL RADIOLOGIST: MELINA ANESTHESIA: Epidural with Duramorph. BLOOD LOSS: [...] and cut. Cord blood was obtained. The infant was handed off to awaiting team. The [...] to the Recovery Room in stable condition. [facility] Signed and Approved by: DR DOUGLAS LWEIS . 06/08/2021 22:19:00 [facility] Evaluation + Plan note Future Appointments Appointment Date:09/19/2021 11:00:00 AM Scheduled Provider:Scotty LOGAN MD Location:[facility] [place] Appointment Type:URO Phone Visit Appointment Date:02/21/2022 11:15:00 AM Scheduled Provider:Scotty LOGAN MD Location:[facility] Appointment Type:URO Office Visit [facility] Evaluation note Diagnosis Neck pain Cervicalgia Cervicogenic headache Headache [facility] Diagnosis Intractable chronic migraine without aura and with status migrainosus (CMS/HCC) Anxiety Anxiety state, unspecified Neck pain Cervicalgia Cervicogenic headache Headache [facility] Diagnosis Other microscopic hematuria- Primary [facility]* Diagnosis Acute cystitis without hematuria- Primary Dysuria [facility]* Diagnosis Missed menses , unspecified gestational age Encounter for supervision of normal first in first trimester 9 weeks gestation of [facility]* Diagnosis First trimester state, incidental 13 weeks gestation of [facility]* Diagnosis Second trimester state, incidental 17 weeks gestation of Need for maternal serum alpha-protein (MSAFP) screening Screening examination for STI Screening, , for anatomic survey Encounter for anatomic survey Nausea Nausea alone Nonintractable headache, unspecified chronicity pattern, unspecified headache type [facility] Diagnosis 22 weeks gestation of Second trimester state, incidental Diabetes mellitus screening Screening for diabetes mellitus History of gastric bypass Nonintractable headache, unspecified chronicity pattern, unspecified headache type [facility] Diagnosis Second trimester state, incidental 26 weeks gestation of Nonintractable headache, unspecified chronicity pattern, unspecified headache type [facility]* Diagnosis Third trimester state, incidental 29 weeks gestation of History of gastric bypass Mood changes Unspecified episodic mood disorder [facility]* Diagnosis 31 weeks gestation of Third trimester state, incidental [facility] Narrative No data available for this section [facility] [employer] Progress note No data available for this section [facility] [employer] Summary Purpose Family History No Family History [...] Referral Specialty Diagnoses / Procedures Referred By Roscoe gallo Referred To Contact Radiology Diagnoses Other microscopic hematuria Procedures CT abdomen pelvis wo IV contrast Xena Mccallum MD [address] [place] [facility] [place] [address] Referral ID Status Reason Start Date Expiration Date V isits Requested Visits Authorized [id number] Pending Review 01/11/2024 07/09/2024 1 1 Additional Source Comments INFORMATION SOURCE (unrecogn ized section and content) DATE CREATED AUTHOR 10/05/2018 [facility] DATE CREATED AUTHOR AUTHOR'S ORGANIZ ATION 06/06/2021 [facility] DATE CREATED AUTHOR AUTHOR'S ORGANIZ ATION 07/13/[address] [facility] dical Specialist DATE CREATED AUTHOR AUTHOR'S ORGANIZ ATION 05/09/2022 [facility] DATE CREATED AUTHOR AUTHOR'S ORGANIZ ATION 07/26/2023 Brogan Michael [facility] DATE CREATED AUTHOR AUTHOR'S ORGANIZ ATION 09/26/[address] [facility] dical Specialists EPIC Patient Care team informatio n (unrecognized section and content) Vocational Aide Relationship Specialty Start Date End Date Xena Mccallum MD [address] [place] [address] PCP - General Family Medicine 09/04/22 Isabel Li, SUPERVISOR POWDERED SUGAR [address] [place] [facility] [place] [address] PCP - [facility] 10/28/23 Vocational Aide Relationship Specialty Start Date End Date Xena Mccallum MD [address] [place] [facility] [place] [address] PCP - General Family Medicine 09/04/22 Isabel Li NP [address] [facility] [place] [address] PCP - [facility] 10/28/23 Vocational Aide Relationship Specialty Start Date End Date Xena Mccallum MD [address] [facility] [place] [address] PCP - General Family Medicine 09/04/22 Isabel Li NP [address] [facility] [place] [address] PCP - [facility] 10/28/23 Vocational Aide Relationship Specialty Start Date End Date Xena Mccallum MD [address] [facility] [place] [address] PCP - General Family Medicine 09/04/22 Isabel Li NP [address] [facility] [place] [address] PCP - [facility] 10/28/23 Vocational Aide Relationship Specialty Start Date End Date Xena Mccallum MD [address] [facility] [place] [address] PCP - General Family Medicine 09/04/22 Isabel Li SUPERVISOR POWDERED SUGAR [address] [facility] [place] [address] PCP - [facility] 10/28/23 Vocational Aide Relationship Specialty Start Date End Date Xena Mccallum MD [address] [facility] [place] [address] PCP - General Family Medicine 09/04/22 Isabel Li SUPERVISOR POWDER[employer] SUGAR PCP - [facility] 10/28/23 Vocational Aide Relationship Specialty Start Date End Date Xena Mccallum MD [address] [place] [address] PCP - General Family Medicine 09/04/22 Isabel Li SUPERVISOR POWDER[employer]GAR PCP - [facility] 10/28/23 Vocational Aide Relationship Specialty Start Date End Date Xena Mccallum MD [address] [facility] [place] [address] PCP - General Family Medicine 09/04/22 Isabel Li SUPERVISOR POWDERED SUGAR PCP [facility] 10/28/23 Vocational Aide Relationship Specialty Start Date End Date Xena Mccallum MD [address] [place] [address] PCP - General Family Medicine 09/04/22 Isabel Li NP PCP [facility] 10/28/23 Vocational Aide Relationship Specialty Start Date End Date Xena Mccallum MD [address] [place] [address] PCP - General Family Medicine 09/04/22 Isabel Li SUPERVISOR POWDER[employer] SUGAR PCP [facility] 10/28/23 Vocational Aide Relationship Specialty Start Date End Date Xena Mccallum MD [address] [place] [address] PCP - General Family Medicine 09/04/22 Isabel Li, SUPERVISOR POWDER[employer] SUGAR PCP [facility] 10/28/23 Vocational Aide Relationship Specialty Start Date End Date Xena Mccallum MD [address] [facility] [place] [address] PCP - General Family Medicine 09/04/22 Isabel Li, SUPERVISOR POWDERED SUGAR [facility] 10/28/23 Vocational Aide Relationship Specialty Start Date End Date Xena Mccallum MD [address] [facility] [place] [address] PCP - General Family Medicine 09/04/22 Isabel Li NP [facility] 10/28/23 Vocational Aide Relationship Specialty Start Date End Date Xena Mccallum MD [address] [facility] [place] [address] PCP - General Family Medicine 09/04/22 Isabel Li NP [facility] 10/28/23 Reason for Visit (unrecogniz ed section and content) Reason Comments UTI Patient presents tod for painful urination, pink colored urine. Patient states that it started about 2 days ago. Reason Comments Amenorrhea Reason Comments Routine Visit FOR RECORDS PERTAINING TO PATIENTS WHO ARE [...] BE BASED ON THE PRIMARY CLINICAL RECORDS. [facility]. provides no warranty or guarantee of the accuracy or completeness of information in this document.
[2024-10-07 08:32] VITALS: BP 109/75; PULSE 134
== END 2024-10-07 09:08 | disposition home or self-care (01) ==
LOC: US 08:02 → FBC 08:04
PROVIDERS: PCP Family Medicine; Visit Provider Obstetrics & Gynecology
DX: O26.893 Other specified pregnancy related conditions, third trimester (principal); O99.843 Bariatric surgery status complicating pregnancy, third trimester; Z3A.33 33 weeks gestation of pregnancy
CPT/HCPCS: 76818

== ENCOUNTER 2024-10-10 16:44 | Outpatient (OUT) | payer BC, SELFPAY ==
--- OUTSIDE RECORDS SUMMARY | 2024-03-19 09:15 | XMS_ITS | Continuity of Care Document ---
Author [facility] [place] [employer] Address [address] [place] [address] Phone Care Team Providers Care Refining Engineer Name Role Phone Sascha Anjali ARDON Unavailable [...] Providers Copied on Encounter OFFICE/OUTPATI ENT VISIT, [facility] [employer], [address] [facility] [address], [place], [place], [id number], [place] tel:[phone] [facility] No Information Sascha Alba. [address] [place] [address] [address], [place], [place], [address], [place]. tel:[phone] Referring Provider: Anjali Caicedo, [address] [place] [address] [address], [place], [address]. tel:[phone] OFFICE/OUTPATI ENT VISIT, [facility] [employer], [address] [place] [address] [address], [place], [place], [address], [place] tel:[phone] [facility] No Information Endy Cordero. [address] [place] [address] [address], [place], [place], [address], [place]. tel:[phone] Referring Provider: Gil Bentley, [address] [place] [address] [address], [place], [address]. tel:[phone] OFFICE/OUTPATI ENT VISIT, [facility] [employer], [address] [place] [address] [address], [place], [place], [address], [place] tel:[phone] [facility] No Information Endy Cordero. [address] [place] [address] [address], [place], [place], [address], [place]. tel:[phone] Referring Provider: Gil Bentley, [address] [place] [address] [address], [place], [address]. tel:[phone], [address] [place] [address] [address], [place], [place], [address], [place] tel:[phone] [facility] No Information Sascha Alba. [address] [place] [address] [address], [place], [place], [address], [place]. tel:[phone] Referring Provider: Anjali Caicedo, [address] [place] [address] [address], [place], [address]. tel:[phone], [address] [place] [address] [address], [place], [place], [address], [place] tel:[phone] [facility] No Information Sascha Alba. [address] [facility] [address], [place], [place], [address], [place]. tel:[phone] Referring Provider: Anjali Caicedo, [address] [place] [address] [address], [place], [address]. tel:[phone] [facility], [address] [place] [address] [address], [place], [place], [address], [place] tel:[phone] [facility] [employer] No Information Sascha Alba. [address] [place] [address] [address], [place], [place], [address], [place]. tel:[phone] Referring Provider: Anjali Caicedo, [address] [place] [address] [address], [place], [address]. tel:[phone] [employer], [address] [place] [address] [address], [place], [place], [address], [place] tel:[phone] [facility] IP No Information Endy Cordero. [address] [place] [address] [address], [place], [place], [address], [place]. tel:[phone] Referring Provider: Gil Bentley, [address] [place] [address] [address], [place], [address]. tel:[phone] OFFICE/OUTPATI ENT VISIT, [facility] [employer], [address] [place] [address] [address], [place], [place], [address], [place] tel:[phone] [facility] No Information Endy Cordero. [address] [place] [address] [address], [place], [place], [address], [place]. tel:[phone] Referring Provider: Gil Bentley, [address] [place] [address] [address], [place], [address]. tel:[phone] OFFICE/OUTPATI ENT VISIT, [facility] [employer], [address] [place] [address] [address], [place], [place], [address], [place] tel:[phone] [facility] No Information Sascha Alba. [address] [facility] [address], [place], [place], [address], [place]. tel:[phone] Referring Provider: Anjali Caicedo, [address] [place] [address] [address], [place], [address]. tel:[phone] [facility], [address] [place] [address] [address], [place], [place], [address], [place] tel:[phone] [facility] No Information Endy Cordero. [address] [facility] [address], [place], [place], [address], [place]. tel:[phone] Referring Provider: Gil Bentley, [address] [place] [address] [address], [place], [address]. tel:[phone] OFFICE/OUTPATI ENT VISIT, [facility] [employer], [address] [place] [address] [address], [place], [place], [address], [place] tel:[phone] [facility] No Information Sascha Alba. [address] [place] [address] [address], [place], [place], [address], [place]. tel:[phone] Referring Provider: Anjali Caicedo, [address] [place] [address] [address], [place], [address]. tel:[phone] OFFICE/OUTPATI ENT VISIT, [facility] [employer], [address] [place] [address] [address], [place], [place], [address], [place] tel:[phone] [facility] No Information Sascha Alba. [address] [place] [address] [address], [place], [place], [address], [place]. tel:[phone] Referring Provider: Anjali Caicedo, [address] [place] [address] [address], [place], [address]. tel:[phone] OFFICE/OUTPATI ENT VISIT, [facility] [employer], [address] [place] [address] [address], [place], [place], [address], [place] tel:[phone] [facility] No Information Sascha Alba. [address] [facility] [address], [place], [place], [address], [place]. tel:[phone] Referring Provider: Anjali Caicedo, [address] [place] [address] [address], [place], [address]. tel:[phone] OFFICE/OUTPATI ENT VISIT, [facility] [employer], [address] [place] [address] [address], [place], [place], [address], [place] tel:[phone] [facility] No Information Sascha Alba. [facility] [address], [place], [place], [address], [place]. tel:[phone] Referring Provider: Anjali Caicedo, [address] [place] [address] [address], [place], [address]. tel:[phone] OFFICE/OUTPATI ENT VISIT, [facility] [employer], [address] [place] [address] [address], [place], [place], [address], [place] tel:[phone] [facility] No Information Sascha Alba. [address] [place] [address] [address], [place], [place], [address], [place]. tel:[phone] Referring Provider: Anjali Caicedo, [address] [place] [address] [address], [place], [address]. tel:[phone], [address] [place] [address] [address], [place], [place], [address], [place] tel:[phone] [facility] No Information Sascha Alba. [address] [place] [address] [address], [place], [place], [address], [place]. tel:[phone] Referring Provider: Anjali Caicedo, [address] [place] [address] [address], [place], [address]. tel:[phone], [address] [place] [address] [address], [place], [place], [address], [place] tel:[phone] [facility] No Information Sascha Alba. [address] [facility] [address], [place], [place], [address], [place]. tel:[phone] Referring Provider: Anjali Caicedo, [address] [facility] [address], [place], [address]. tel:[phone], [address] [place] [address] [address], [place], [place], [address], [place] tel:[phone] [facility] [employer] No Information Endy Cordero. [address] [place] [address] [address], [place], [place], [address], [place]. tel:[phone] Referring Provider: Gil Bentley, [address] [place] [address] [address], [place], [address]. tel:[phone], [address] [place] [address] [address], [place], [place], [address], [place] tel:[phone] [facility] [employer] No Information Sascha Alba. [address] [place] [address] [address], [place], [place], [address], [place]. tel:[phone] Referring Provider: Anjali Caicedo, [address] [place] [address] [address], [place], [address]. tel:[phone] OFFICE/OUTPATI ENT VISIT, [facility] [employer], [address] [place] [address] [address], [place], [place], [address], [place] tel:[phone] [facility] No Information Endy Cordero. [address] [place] [address] [address], [place], [place], [address], [place]. tel:[phone] Referring Provider: Gil Bentley, [address] [place] [address] [address], [place], [address]. tel:[phone] OFFICE/OUTPATI ENT VISIT, [facility] [employer], [address] [place] [address] [address], [place], [place], [address], [place] tel:[phone] [facility] No Information Endy Cordero. [address] [facility] [address], [place], [place], [address], [place]. tel:[phone] Referring Provider: Gil Bentley, [address] [facility] [address], [place], [address]. tel:[phone] OFFICE CONSULTATION [facility], [address] [place] [address] [address], [place], [place], [address], tel:[phone] [facility] No Information Endy Cordero. [address] [place] [address] [address], [place], [place], [address], [place]. tel:[phone] Referring Provider: Gil Bentley, [address] [place] [address] [address], [place], [address]. tel:[phone] Family History Family Member Type Diagnosis Age At Onset No Information Payers Payer name Insurance type Covered libertarian ID James sanmarianne(s) [employer] [place] [employer] [place] [id number] Social History Type Description Quantity Date Captured [...]
--- OUTSIDE RECORDS SUMMARY | 2024-10-07 13:50 | XMS_ITS | Encounter Summary ---
Author Organization [facility] Address [address] [facility] [place] [address] Care Team Providers Care Blind Escort Name Role Phone Xena Mccallum MD Primary Care Provider [phone] Isabel Li CERAMIC PLATER Unavailable Reason for Visit * Reason Comments Routine Visit Encounter Details Date Type Department Care Team (Late Contact Info) Description 10/07/2024 1:50 PM EDT Routine [facility] [address] [place] [phone] Douglas Lewis, DO [address] [place], [place] [address] Third trimester ([facility]); 33 weeks gestation of ([facility]) Social History Tobacco Use Types Packs/Day Years Used Date Smoking Tobacco: Never Smokeless Tobacco: Never Alcohol Use Standard Drinks/Week Comments Yes 0 (1 standard drink = 0.6 oz pur e alcohol) caffeine: 1-2 cups per day AUDIT-C Answer Date Recorded Q1: How often do you have a drink containing alc ohol? Monthly or less 06/18/2023 Q2: How many drinks containi ng alcohol do you have on a typical day when you are drinking? 1 or 2 06/18/2023 Q3: How often do you have si x or more drinks on one occasion? Never 06/18/2023 PHQ-2 Answer Date Recorded Patient Health Questionnaire-2 Score 0 06/18/2023 Estimated Date of Delivery Comme nts Yes 11/19/2024 Based on last me nstrual period of 02/13/2024 Sex and Gender Information Value Date Recorded Sex Assigned at Not on file Legal Sex Female 6:33 PM EDT Gender Identity Not on file Sexual Orientation Not on file documented as of this encounter Last Filed Vital Signs Vital Sign Reading Time Taken Comments Blood Pressure 114/68 10/07/2024 2:10 PM EDT Pulse - - Temperature - - Respiratory Rate - - Oxygen Saturation - - Inhaled Oxygen Concentration - - Weight 81.1 kg (178 lb 12.8 oz) 10/07/2024 2:10 PM EDT Height - - Body Mass Index 33.78 01/09/2024 3:59 PM EDT documented in this encounter Progress Notes * Thelma Perry LPN - 10/07/2024 1:50 PM EDT Reason for Appointment: Patient ID: Tan Contreras is a 29 y.o. female who presents [...] (65 Fe) MG tablet 1 tablet, Daily MV-Min-Fe Fum-FA-DHA ( 1 PO) 1 tablet, Daily promethazine (PHENERGAN) 12.5 mg, Oral, Every 6 hours PRN, Take 1 tablet by mouth every 6 hours as needed for nausea. ALLERGIES Allergies Allergen Reactions Clindamycin Swelling Other Reaction(s): Tongue swelling Lamotrigine Other Reaction(s): worsened depression Morphine Hives Penicillins Rash and Unknown PROBLEMS Active Ambulatory Problems Diagnosis Date Noted Depression ([facility]) 06/18/2023 Anemia 06/18/2023 Anxiety 06/18/2023 Recurrent nephrolithiasis 09/05/2016 Essential thrombocythemia ([facility]) 06/18/2023 Gastric bypass status for obesity 08/10/2021 [...] COSMETIC SURGERY 05/17/2020 [facility] [place] ELBOW SURGERY Left 2000 OTHER SURGICAL HISTORY 2014 kidney stent WRIST [...] nursing note reviewed. Exam conducted with a senior insight manager present. Vitals: Estimated body mass index is 33.78 kg/m?? as calculated from the following: Height as of 9/12/24: 5' 1 . Weight as of this encounter: 178 lb 12.8 oz. BP: 114/68 Patient's last menstrual period was 02/13/2024. ASSESSMENT & PLAN ICD-10-CM 1. Third trimester Z34.93 2. 33 weeks gestation of Z3A.33 Return OB: Patient presents today for a routine obstetrics appointment. Patient is currently 33w6d . Patient states she is doing well but has complaints of being tired due to current . Patient has verbalizes frequent movement. labor precautions was discussed/given and patient was instructed to perform kick counts three times a day. No orders of the defined types were placed in this encounter. Follow Up: Patient is to return to office in 2 week for routine OB appointment. Documented by Thelma Perry LPN on behalf of: Douglas Lewis DO documented in this encounter Plan of Treatment Upcoming Encounters Date Type Department Care Team (Late st Contact Info) Description 10/21/2024 1:30 PM EDT Routine [facility] [address] [place] [phone] Douglas Lewis, [address] [place], [place] [address] [address] 10/28/2024 9:00 AM EDT Routine [facility] [address] [place], [place] [address] [address] Maddie Chan PA [address] [place] [address] 11/04/2024 10:50 AM EDT Routine [facility] [address] [place], [place] [address] [address] Douglas Lewis, [address] [place], [place] [address] [address] documented as of this encounter Visit Diagnoses Diagnosis Third trimester ([facility]) state, incidental 33 weeks gestation of ([facility]) documented in this encounter Care Teams Blind Escort Relationship Specialty Start Date End Date Xena Mccallum MD [address] [place] [address] PCP - General Family Medicine 09/04/22 Isabel Li NP PCP - [facility] 10/28/23 documented as of this encounter
--- OUTSIDE RECORDS SUMMARY | 2024-10-10 16:47 | XMS_ITS | Encounter Summary ---
Author Organization [facility] Address [address] [facility] [place] [address] Care Team Providers Care Director Of Business Operations Name Role Phone Narinder Hernandez MD Primary Care Provider [phone] Isabel Li ELECTRONIC WARFARE SPECIALIST Unavailable Encounter Details Date Type Department Care Team (Late Contact Info) Description 10/07/2024 Clinisync Result Encounter [facility] External Department Unsolicited Provider, Generic External Data Social History Tobacco Use Types Packs/Day Years [...] on file documented as of this encounter Plan of Treatment Upcoming Encounters Date Type Department Care Team (Late Contact Info) Description 10/21/2024 1:30 PM EDT Routine [facility] OB [address] [place] [phone] Clinton Lewis, [address] [facility] [place] [address] 10/28/2024 9:00 AM EDT Routine [facility] OB [address] [place] [address] [place] [phone] Maddie Chan PA [address] [facility] [place] [address] 11/04/2024 10:50 AM EDT Routine [facility] OB [address] [place] [address] [place] [phone] Clinton Lewis, [address] [place] [address] documented as of this encounter Procedures Procedure Name Priority Date/Time Associated Diagnosis Comments US OB BPP W NON-STRESS 10/07/2024 9:21 AM EDT documented in this encounter Results * US OB BPP W NON-STRESS (10/07/2024 9:21 AM EDT) Anatomical Region Laterality Modality Other 10/07/2024 9:21 AM EDT Narrative 10/07/2024 9:24 AM EDT The [address] [address] Ultrasound Report Signed Patient: TAN MARS MR#: [id number] : 1995 Acct:[id number] Age/Sex: 29 / F ADM Date: 10/07/24 Loc: US Attending Dr: Clinton Lewis D.O. Ordering Physician: Clinton Lewis D.O. Date of Service: 10/07/24 Procedure(s): US OB BPP w non-stress Accession Number(s): [id number] cc: NARINDER HERNANDEZ ; Clinton Lewis D.O. The [place] [id number] Patient Name: TAN MARS MRN: [id number] date: 1995 Sex: F Assigned Patient Location: [facility] Current Patient Location: Accession/Order Number: [id number] Exam Date: 10/07/2024 09:20 Report Date: 10/07/2024 09:21 At the request of: CLINTON LEWIS DO Procedure: US OB BPP w non-stress BIOPHYSICAL PROFILE: CLINICAL INFORMATION: H/O gastric bypass COMPARISON: None There is a single live intrauterine gestation in transverse position, head to the maternal left. Reported gestational age is 33 weeks 6 days. The heart rate measures 134 beats per minute. FINDINGS: TONE: 1 or more episodes of activity extension and flexion of extremity or opening and closing of the hand [Y] 2/2 GROSS BODY MOVEMENTS: 3 or more discrete body or limb movements [Y] 2/2 BREATHING MOVEMENTS: 1 or more episodes of breathing lasting at least 30 seconds [Y] 2/2 PATITO: A single deepest vertical pocket of amniotic fluid greater than 2 cm [Y] 2/2 PATITO: 15.8 cm. This is in normal range. Total score: 8/8 US/US OB BPP w non-stress IMPRESSION: NORMAL BIOPHYSICAL PROFILE . Impression dictated by: Thelma Morales M.D. 10/07/2024 9:21 AM Dictation Location: [place] [address] Electronically authenticated by: [id number] Y Date: 10/07/2024 09:21 Dictated By: Thelma Morales M.D. Signed By: 10/07/24923 DD/ 0 TD/TT: Machine I Cutter: Procedure Note Radiology, Radiologist, - 10/07/2024 [place] [address] Ultrasound Report Signed Patient: TAN MARS RMR#: [id number] : 1995Acct:[id number] Age/Sex: 29 / FADM Date: 10/07/24 Loc: US Attending Dr: Clinton Lewis D.O. Ordering Physician: Clinton Lewis D.O. Date of Service: 10/07/24 Procedure(s): US OB BPP w non-stress Accession Number(s): [id number] cc: NARINDER HERNANDEZ ; Clinton Lewis D.O. [place] [address] Patient Name: TAN MARS MRN: [facility]:[id number] date: 1995 Sex: F Assigned Patient Location: [facility] Current Patient Location: Accession/Order Number: [id number] Exam Date: 10/07/2024 09:20 Report Date: 10/07/2024 09:21 At the request of: CLINTON LEWIS DO Procedure: US OB BPP w non-stress BIOPHYSICAL PROFILE: CLINICAL INFORMATION: H/O gastric bypass COMPARISON: None There is a single live intrauterine gestation in transverse position, headto the maternal left. Reported gestational age is 33 weeks 6 days. Thefetal heart rate measures 134 beats per minute. FINDINGS: TONE: 1 or more episodes of activity extension and flexion of extremity or opening and closing of the hand [Y] 2/2 GROSS BODY MOVEMENTS: 3 or more discrete body or limb movements [Y] 2/2 BREATHING MOVEMENTS: 1 or more episodes of breathing lastingat least 30 seconds [Y] 2/2 PATITO: A single deepest vertical pocket of amniotic fluid greater than 2 cm [Y] 2/2 PATITO: 15.8 cm. This is in normal range. Total score: 8/8 US/US OB BPP w non-stress IMPRESSION: NORMAL BIOPHYSICAL PROFILE . Impression dictated by: Thelma Morales M.D. 10/07/2024 9:21 AM Dictation Location: [place] [address] Electronically authenticated by: [id number] Y Date: 9:21 Dictated By: Thelma Morales M.D. Signed By:10/07/24923 DD/ 0 TD/TT: Machine I Cutter: us Generic External Data Provider [facility] Final Result documented in this encounter Visit Diagnoses Not on filedocumented in this encounter Care Teams Director Of Business Operations Relationship Specialty Start Date End Date Narinder Hernandez MD [address] [place] [address] PCP - General Family Medicine 09/04/22 Isabel Li NP PCP - [facility] 10/28/23 documented as of this encounter
--- OUTSIDE RECORDS SUMMARY | 2024-10-10 16:47 | XMS_ITS | Encounter Summary ---
Author Organization [facility] Address [address] [facility] [place] [address] Care Team Providers Care Virtualization Engineer Name Role Phone Narinder Hernandez MD Primary Care Provider [phone] Narinder Hernandez MD Unavailable Isabel Li MARINE RAILWAY OPERATOR Unavailable Encounter Details Date Type Department Care Team (Late Contact Info) Description 08/13/2023 Clinisync Result Encounter [facility] External Department Unsolicited [...] Recorded Patient Health Questionnaire-2 Score 0 06/18/2023 Comments No Sex and Gender Information Value Date Recorded Sex Assigned at Not on file Legal Sex Female 6:33 PM EDT Gender Identity Not on file Sexual Orientation Not on file documented as of this encounter Plan of Treatment Upcoming Encounters Date Type Department Care Team (Late Contact Info) Description 10/21/2024 1:30 PM EDT Routine [facility] B[facility] OB [address] [place], [place] [address] [phone] Clinton Lewis, [address] [place] [address] 10/28/2024 9:00 AM EDT Routine [facility] B[facility] OB [address] [facility] [place] [phone] Maddie Chan, PA [address] [facility] [place] [address] 11/04/2024 10:50 AM EDT Routine [facility] OB [address] [facility] [place] [phone] Clinton Lewis, [address] [place] [address] documented as of this encounter Procedures Procedure Name Priority Date/Time Associated Diagnosis Comments US PELVIS W/ TRANSVAGINAL 08/13/2023 2:53 PM EDT documented in this encounter Results * US PELVIS W/ TRANSVAGINAL (08/13/2023 2:53 PM EDT) Anatomical Region Laterality Modality Other 08/13/2023 2:53 PM EDT Narrative 08/13/2023 2:56 PM EDT The [place] [id number] Ultrasound Report Signed Patient: Tan Weiner MR#: [id number] : 1995 Acct:[id number] Age/Sex: 28 / F ADM Date: 08/13/23 Loc: [facility]OM[facility] Attending Dr: Clinton Lewis D.O. Ordering Physician: Clinton Lewis D.O. Date of Service: 08/13/23 Procedure(s): US pelvis w/ transvaginal Accession Number(s): [id number] cc: NARINDER HERNANDEZ ; Clinton Lewis D.O. The [address] [address] Patient Name: TAN WEINER MRN: [id number] date: 1995 Sex: F Assigned Patient Location: [facility] Current Patient Location: [facility] Accession/Order Number: [id number] Exam Date: 08/13/2023 11:33 Report Date: 08/13/2023 14:53 At the request of: CLINTON LEWIS Procedure: US pelvis w/ transvaginal EXAMINATION: US pelvis w/ transvaginal HISTORY: PELVIC PAIN COMPARISON: No relevant comparison available. FINDINGS: Transabdominal and transvaginal images The uterus is normal in size, contour and myometrial echotexture measuring 9.2 x 3.8 x 6.2 cm. The uterus is anteverted. No focal myometrial mass The endometrium measures 11 mm, normal. The right ovary is normal measuring 3.9 x 1.6 x 3.1 cm. Normal color Doppler flow. The left ovary measures 3.7 x 1.9 x 2.0 cm. Normal color Doppler flow. Area of anechoic echogenicity measuring 2.1 cm, simple cyst. No free fluid US/US pelvis w/ transvaginal IMPRESSION: No acute abnormality Electronically authenticated by: GENARO RODRÍGUEZ Date: 08/13/2023 14:53 Dictated By: Genaro Rodríguez M.D. Signed By: 08/13/23 1456 DD/ 1453 TD/TT: Rivet Catcher: Procedure Note Radiology, Radiologist, MD - 08/13/2023 [place] [address] Ultrasound Report Signed Patient: Tan Weiner RMR#: [id number] : 1995Acct:[id number] Age/Sex: 28 / FADM Date: 08/13/23 Loc: [facility] Attending Dr: Clinton Lewis D.O. Ordering Physician: Clinton Lewis D.O. Date of Service: 08/13/23 Procedure(s): US pelvis w/ transvaginal Accession Number(s): [id number] cc: NARINDER HERNANDEZ ; Clinton Lewis D.O. [address] [address] Patient Name: TAN WEINER MRN: [id number] date: 1995 Sex: F Assigned Patient Location: [facility] Current Patient Location: [facility] Accession/Order Number: [id number] Exam Date: 08/13/2023 11:33 Report Date: 08/13/2023 14:53 At the request of: CLINTON LEWIS Procedure: US pelvis w/ transvaginal EXAMINATION: US pelvis w/ transvaginal HISTORY: PELVIC PAIN COMPARISON: No relevant comparison available. FINDINGS: Transabdominal and transvaginal images The uterus is normal in size, contour and myometrial echotexture measuring9.2 x 3.8 x 6.2 cm. The uterus is anteverted. No focal myometrial mass The endometrium measures 11 mm, normal. The right ovary is normal measuring 3.9 x 1.6 x 3.1 cm. Normal colorDoppler flow. The left ovary measures 3.7 x 1.9 x 2.0 cm. Normal color Doppler flow.Area of anechoic echogenicity measuring 2.1 cm, simple cyst. No free fluid US/US pelvis w/ transvaginal IMPRESSION: No acute abnormality Electronically authenticated by: GENARO RODRÍGUEZ Date: 08/13/2023 14:53 Dictated By: Genaro Rodríguez M.D. Signed By:08/13/23 1456 DD/ 1453 TD/TT: Rivet Catcher: us Generic External Data Provider [facility] Final Result documented in this encounter Visit Diagnoses Not on filedocumented in this encounter Care Teams Virtualization Engineer Relationship Specialty Start Date End Date Narinder Hernandez MD [address] [facility] [place] [address] PCP - General Family Medicine 09/04/22 Narinder Hernandez MD [address] [facility] [place] [address] PCP - [facility] 07/29/23 Isabel Li NP [facility] - [facility] 10/28/23 documented as of this encounter
--- OUTSIDE RECORDS SUMMARY | 2024-10-10 16:47 | XMS_ITS ---
Author Organization [facility] Source Produ ction (ClinicalSummary Clone) Address Unknown Care Team Providers Care Lathe Set Up Operator Name Role Phone Unavailable Primary Care Physician Unavailab le Results * [UNITY] ANEUPLOIDY NIPT Performed by: [facility] Component Value Range Date Fraction 7.1% 05/16/2024 06 :29 am [facility] Sex Chromosome Aneuploidy NOT DETECTED 06:29 am [facility] Monosomy X LOW RISK <1 in 10,000 2024 06:29 am [facility] Trisomy 13 LOW RISK <1 in 10,000 2024 06:29 am [facility] Trisomy 18 LOW RISK <1 in 10,000 2024 06:29 am [place] Trisomy 21 LOW RISK <1 in 10,000 2024 06:29 am [facility] Sex FEMALE 05/16/2024 06:2 9 am [facility] Gestation DONIS 05/16/19 06:29 am [facility] For detailed report, see PDF See PDF 05/16/2024 06:29 am [facility] 05/16/2024 06:2 9 am [facility] Social History Observation Value Start Date End Date
--- OUTSIDE RECORDS SUMMARY | 2024-10-10 16:47 | XMS_ITS | Encounter Summary ---
Author Organization [facility] Address [address] [facility] [place] [address] Care Team Providers Care Call Center Support Consultant Name Role Phone Xena Mccallum MD Primary Care Provider [phone] Xena Mccallum MD Unavailable Isabel Li NP Unavailable Encounter Details Date Type Department Care Team (Late st Contact Info) Description 08/10/2023 Abstract [facility] [address] [place] [address] Isabel Li GUYLINE OPERATOR Social History Tobacco Use Types Packs/Day Years [...] 1:30 PM EDT Routine [facility] B[facility] OB [address] [place] [address] [place] [phone] Douglas Lewis, [address] [place] [address] 10/28/2024 9:00 AM EDT Routine [facility] OB [address] [place] [address] [place] [phone] Maddie Chan PA [address] [facility] [place] [address] 11/04/2024 10:50 AM EDT Routine [facility] B[facility] OB [address] [place] [address] [place] [phone] Douglas Lewis, [address] [place] [address] documented as of this encounter Visit Diagnoses Not on filedocumented in this encounter Care Teams Call Center Support Consultant Relationship Specialty Start Date End Date Xena Mccallum MD [address] [place], [place] [phone] PCP - General Family Medicine 09/04/22 Xena Mccallum MD [address] [place], [place] [phone] PCP - [facility] 07/29/23 Isabel Li NP PCP - [facility] 10/28/23 documented as of this encounter
--- OUTSIDE RECORDS SUMMARY | 2024-10-10 16:47 | XMS_ITS | Clinical Summary ---
Author Organization [facility] Address [address] [facility] [place] [address] Care Team Providers Care Parachute Marker Name Role Phone Xena Mccallum MD Primary Care Provider [phone] Isabel Li PAINTING TECHNICIAN Unavailable Allergies Active Allergy Reactions Criticality Noted Date Comments Clindamycin Swelling 06/18/2023 Other Reaction(s): Tongue swelling Lamotrigine 06/18/2023 Other Reaction(s): worsened depression Morphine Hives 06/18/2023 Penicillins Rash,Unknown Low 04/26/2016 Medications busPIRone (Buspar) 10 MG tabletIndicatio ns:Anxiety Take 1 tablet (10 mg) by mouth Daily as needed (anxiety) Taking half a tablet 90 tablet 1 01/09/20 24 025 Active promethazine (Phenergan) 12.5 MG tabletIndicatio ns:Nausea Take 1 tablet (12.5 mg) by mouth every 6 (six) hours if needed for nausea or vomiting for up to 30 doses Take 1 tablet by mouth every 6 hours as needed for nausea. 30 tablet 2 08/04/19 25 Active citalopram (CeleXA) 20 MG tabletIndicatio ns:Mood changes Take 1 tablet (20 mg) by mouth Daily 30 tablet 11 09/09/19 25 026 Active cyclobenzaprine (Flexeril) 5 MG tabletIndicatio ns:Nonintractab le headache, unspecified chronicity pattern, unspecified headache type,Cramp and spasm Take 1 tablet (5 mg) by mouth 2 (two) times a day as needed for muscle spasms 60 tablet 09/17/19 25 025 Active MV-Min-Fe Fum-FA-DHA ( 1 PO) Take 1 tablet by mouth Daily Active Calcium Carbonate (CALCIUM 500 PO) Take 1 tablet by mouth Daily Active Ferrous Sulfate (iron) 325 (65 Fe) MG tablet Take 1 tablet by mouth Daily Active Ubrogepant (Ubrelvy) 100 MG tabletIndicatio ns:Intractable chronic migraine without aura and with status migrainosus Take 100 mg by mouth Daily 30 tablet 08/08/19 24 025 Discontinued topiramate (Topamax) 25 MG tabletIndicatio ns:Intractable chronic migraine without aura and with status migrainosus Take 1 tablet (25 mg) by mouth in the morning and 1 tablet (25 mg) before bedtime. 180 tablet 3 01/09/20 24 025 Discontinued tiZANidine (Zanaflex) 4 MG tabletIndicatio ns:Neck pain,Cervicogen ic headache Take 1 tablet (4 mg) by mouth as needed at bedtime for muscle spasms 270 tablet 02/20/20 24 025 Discontinued magnesium oxide (Mag-Ox) 400 MG tabletIndicatio ns:Nonintractab le headache, unspecified chronicity pattern, unspecified headache type Take 1.5 tablets (600 mg) by mouth Daily 45 tablet 3 08/14/19 25 025 cyclobenzaprine (Flexeril) 5 MG tabletIndicatio ns:Nonintractab le headache, unspecified chronicity pattern, unspecified headache type,Cramp and spasm Take 1 tablet (5 mg) by mouth in the morning and 1 tablet (5 mg) before bedtime. Do all this for 15 doses. 15 tablet 09/12/19 25 025 Discontinued Active Problems Problem Noted Date Diagnosed Date 22 weeks gestation of ([facility]) 2024 Second trimester ([facility]) 07/16/2024 Depression 06/18/2023 Anemia 06/18/2023 Anxiety 06/18/2023 Essential thrombocythemia 06/18/2023 Gastroesophageal reflux disease 06/18/2023 Insomnia 06/18/2023 Gastric bypass status for obesity 08/10/2021 Iron deficiency anemia chase schwartz to inadequate dietary iron intake 08/10/2021 Recurrent nephrolithiasis 09/05/2016 Estimated Date of Delivery Comme nts Yes 11/19/2024 Based on last me nstrual period of 02/13/2024 Encounters Date Type Department Care Team Description 10/07/2024 1:50 PM EDT Routine [facility] [address] [facility] [place] [address] Clinton Lewis, Third trimester ([facility]); 33 weeks gestation of ([facility]) 10/07/2024 Clinisync Result Encounter [facility] External Department Unsolicited Provider, Generic External Data 09/23/2024 11:30 AM EDT Routine [facility] [address] [place] [address] Clinton Lewis DO 31 weeks gestation of ([facility]); Third trimester ([facility]) 09/23/2024 Bamboo flowsheet [facility] [address] [place] [address] Clinton Lewis DO 09/15/2024 11:30 AM EDT Ancillary Procedure [facility] [place] [address] [place] [address] History of gastric bypass 09/10/2024 Telephone [facility] [place] [address] [place] [address] Leticia Pina MA 09/09/2024 Telephone [facility] OB [address] [place] [address] [place] [address] Leticia Pina MA 09/08/2024 9:20 AM EDT Routine [facility] OB [employer] [place] [address] Clinton Lewis, Third trimester ([facility]); 29 weeks gestation of ([facility]); History of gastric bypass; Mood changes 09/08/2024 Bamboo flowsheet [facility] [address] [place] [address] Clinton Lewis DO 08/13/2024 9:10 AM EDT Routine [facility] [address] [place] [address] Clinton Lewis, Second trimester ([facility]); 26 weeks gestation of ([facility]); Nonintractable headache, unspecified chronicity pattern, unspecified headache type 08/13/2024 Bamboo flowsheet [facility] [address] [place] [address] Clinton Lewis DO 08/03/20[address] [facility] [address] [place] [address] Cecy Nicholas MA 08/03/2024 [address] [facility] [address] [place] [address] Cecy Nicholas MA Nonintractable headache, unspecified chronicity pattern, unspecified headache type; Nausea 07/22/2024 Clinisync Result Encounter [facility] External Department Unsolicited Provider, Generic External Data 07/20/2024 Telephone [facility] [address] [place] [address] Clinton Lewis DO 07/16/2024 8:50 AM EDT Routine [facility] [address] [place] [address] Clinton Lewis DO 22 weeks gestation of ([facility]); Second trimester ([facility]); Diabetes mellitus screening; History of gastric bypass; Nonintractable headache, unspecified chronicity pattern, unspecified headache type 07/16/2024 Bamboo flowsheet [facility] [address] [place] [address] Clinton Lewis DO from Last 3 Months Immunizations Immunization Administration Dates Next Due Influenza, injectable, quadrivalent 05/03/2020,1 Influenza, seasonal, injectable, preservative fr ee 02/21/2016 Family History Medical History Relation Name Comments Alcohol abuse Father Diabetes Father Heart disease Father Hypertension Father Kidney failure Father Asthma Mother Hypertension Mother Cancer Other Grandparents Stroke Other Grandparents Relation Name Status Comments Father Mother Alive Other Grandparents Social History Tobacco Use Types Packs/Day Years Used Date Smoking Tobacco: Never Smokeless Tobacco: Never Tobacco Cessation:Counseling Given: Not Answered Alcohol Use Standard Drinks/Week Comments Yes 0 [...] on file Sexual Orientation Not on file Last Filed Vital Signs Vital Sign Reading Time Taken Comments Blood Pressure 114/68 10/07/2024 2:10 PM EDT Pulse 82 01/09/2024 3:59 PM EDT Temperature - - Respiratory Rate 18 01/09/2024 3:59 PM EDT Oxygen Saturation 99% 01/09/2024 3:59 PM EDT Inhaled Oxygen Concentration - - Weight 81.1 kg (178 lb 12.8 oz) 10/07/2024 2:10 PM EDT Height 154.9 cm (5' 1 ) 01/09/2024 3:59 PM EDT Body Mass Index 33.78 01/09/2024 3:59 PM EDT Plan of Treatment Upcoming Encounters Date Type Department Care Team (Late st Contact Info) Description 10/21/2024 1:30 PM EDT Routine [facility] OB [address] [facility] [address] Clinton Lewis, DO [address] [facility] [address] [place]riela [place], [place] [id number] 10/28/2024 9:00 AM EDT Routine [facility] OB [address] [place] [address] [place] [address] Maddie Chan PA [address] [facility] [address] [place], [place] [address] 11/04/2024 10:50 AM EDT Routine [facility] OB [address] [place] [address] [place] [address] Clinton Lewis, [address] [facility] [address] [place], [place] [address] Health Maintenance Due Date Last Done Comments Influenza Vaccine (Season Ended) 2024 05/03/2020, 01/29/2018, 02/21/2016 Procedures Procedure Name Priority Date/Time Associated Diagnosis Comments US OB BPP W NON-STRESS 10/07/2024 9:21 AM EDT POCT URINALYSIS DIPSTICK Routine 09/23/2024 11:52 AM EDT 31 weeks gestation of ([facility]) Third trimester ([facility]) US OB FOLLOW UP TRANSABDOMINAL APPROACH Routine 09/15/2024 12:02 PM EDT History of gastric bypass MLR HEMOGLOBIN A1C Routine 07/22/2024 1: 19 PM EDT ALL CBC WITH AUTO DIFF Routine 1:19 PM EDT METRO BILIRUBIN, DIRECT Routine 07/23/19 1:19 PM EDT [facility] CMP (CMP) (FOR REMOTE [facility] USE) Routine 07/22/2024 1:19 PM EDT POCT URINALYSIS DIPSTICK Routine 07/16/2024 9:14 AM EDT 22 weeks gestation of ([facility]) Second trimester ([facility]) from Last 3 Months Results * US OB BPP W NON-STRESS (10/07/2024 9:21 AM EDT) Anatomical Region Laterality Modality Other 10/07/2024 9:21 AM EDT Narrative 10/07/2024 9:24 [place] [address] Ultrasound Report Signed Patient: TAN MARS MR#: [id number] : 1995 Acct:[id number] Age/Sex: 29 / F ADM Date: 10/07/24 Loc: US Attending Dr: Clinton Lewis D.O. Ordering Physician: Clinton Lewis D.O. Date of Service: 10/07/24 Procedure(s): US OB BPP w non-stress Accession Number(s): [id number] cc: XENA MCCALLUM ; Clinton Lewis D.O. [place] [id number] Patient Name: TAN MARS MRN: [id number] date: 1995 Sex: F Assigned Patient [facility]: [facility] Current Patient Location: Accession/Order Number: [id number] Exam Date: 10/07/2024 09:20 Report Date: 10/07/2024 [...] Morales M.D. 10/07/2024 9:21 AM Dictation Location: [place] [address] Electronically authenticated by: [id number] Y Date: 10/07/2024 09:21 Dictated By: Thelma Morales M.D. Signed By: 10/07/24923 DD/ 0 TD/TT: Compensation Analyst: Procedure Note Radiology, Radiologist, MD - 10/07/2024 [place] [address] Ultrasound Report Signed Patient: TAN MARS RMR#: [id number] : 1995Acct:[id number] Age/Sex: 29 / FADM Date: 10/07/24 Loc: US Attending Dr: Clinton Lewis D.O. Ordering Physician: Clinton Lewis D.O. Date of Service: 10/07/24 Procedure(s): US OB BPP w non-stress Accession Number(s): [id number] cc: XENA MCCALLUM ; Clinton Lewis D.O. The [place] [id number] Patient Name: TAN MARS MRN: [id number] date: 1995 Sex: F Assigned Patient Location: [facility] Current Patient Location: Accession/Order Number: [id number] Exam Date: 10/07/2024 09:20 Report Date: 10/07/2024 [...] Morales M.D. 10/07/2024 9:21 AM Dictation Location: [place] [address] Electronically authenticated by: [id number] Y Date: 9:21 Dictated By: Thelma Morales M.D. Signed By:10/07/24923 DD/ 0 TD/TT: Compensation Analyst: Generic External Data Provider [facility] Final Result * (ABNORMAL) POCT urinalysis dipstick manually resulted (09/23/2024 11:52 AM EDT) Only the most recent of2 resultswithin the time period is included. Color, UA Yellow Clarity, UA Clear Glucose, UA Negative Negative - 1999(110) ++++ mg/dL Bilirubin, UA Negative Negative - 4(70) +++ mg/dL Ketones, UA Negative Negative - 160(16) ++++ mg/dL Spec Grav, UA 1.020 1 - 1.03 Blood, UA Negative Negative - 50 Liam/mcL pH, UA 7.5 5 - 9 Protein, UA Negative Negative - 1999(20) ++++ mg/dL Urobilinogen, UA 0.2 0.2 - 12 mg/dL Leukocytes, UA Trace Negative - 500+++ Mele/mcL Nitrite, UA Negative Negative - Positive Urine 09/23/2024 11:5 2 AM EDT Clinton Lewis DO POINT OF CARE TEST ENTER/EDIT OR DERABLES Final Result * US OB follow up transabdominal approach (09/15/2024 12:02 PM EDT) Anatomical Region Laterality Modality Body Ultrasound 09/15/2024 11:0 1 PM EDT Narrative 09/16/2024 7:01 AM EDT EXAM: US OB FOLLOW UP TRANSABDOMINAL APPROACH [...] 11/09/2024. Interpreted by: Electronically signed by STARR IPNTO II, MD, PHD at 15-Sep-2024 10:59:56 PM [facility] Procedure Note Starr Pinto MD - 09/16/2024 EXAM: US OB FOLLOW UP TRANSABDOMINAL APPROACH HISTORY: History of gastric bypass. COMPARISON: Ob ultrasound 07/09/2024. TECHNIQUE: Two-dimensional transabdominal grayscale ultrasound imaging ofthe pelvis was performed. FINDINGS: Gestation: Single Presentation: [...] is 32 weeks 1 days (+/- 16 daysgestation). Estimated Weight: 1898 grams, +/- 285 grams ( 4 lb 3 oz). Weight Percentile for gestational age: 83 % IMPRESSION: 1. Single, live intrauterine gestation 30 weeks, 5 days by LMP. Today'sultrasound measurements correlate with a gestational age of 32 weeks 1days. Estimated weight is 1898 grams, +/- 285 grams ( 4 lb 3 oz)which correlates to 83 %. [place] is 11/09/2024. Interpreted by: Electronically signed by STARR PINTO II, MD, PHD [id number] 10:59:56 PM [facility] us Clinton Debbie DO IMG OB US PROCEDURES Final Resul t * MLR HEMOGLOBIN A1C (07/22/2024 1:19 PM EDT) GLYCOHEMOGLOBIN A1C 5.1 4.5 - 6.2 % TBH Comment: ADA RECOMMENDED LIMIT 4.0 - 6.0 ADA THERAPEUTIC TARGET < 7.0 ACTION SUGGESTED > 7.0 ESTIMATED AVERAGE GLUCOSE 100 mg/dL TBH 07/22/2024 1:19 PM EDT 07/22/2024 1:48 PM EDT Narrative [facility] - 07/22/2024 3:57 PM EDT us Clinton Debbie DO [facility] Final Result [facility] * METRO BILIRUBIN, DIRECT (07/22/2024 1:19 PM EDT) BILIRUBIN DIRECT <0.1 0.0 - 0.2 mg/dL TBH 07/22/2024 1:19 PM EDT 07/22/2024 1:48 PM EDT Narrative [facility] - 07/22/2024 2:14 PM EDT us Clinton Debbie DO [facility] Final Result [facility] * (ABNORMAL) [facility] CMP (CMP) (FOR REMOTE [facility] USE) (07/22/2024 1:19 PM EDT) SODIUM 137 136 - 145 mmol/L TBH POTASSIUM 3.9 3.5 - 5.1 mmol/L TBH CHLORIDE 104 98 - 107 mmol/L TBH CARBON DIOXIDE 25.6 21.0 - 32.0 mmol/L TBH ANION GAP 11.3 TBH GLUCOSE 85 74 - 106 mg/dL TBH BLOOD UREA NITROGEN 10.0 7.0 - 18.0 mg/dL TBH CREATININE 0.49(L) 0.55 - 1.02 mg/dL TBH TBH EGFR-AF NIGERIEN >60 >=60 mL/min/1. 73m 2 TBH TBH EGFR-NON AF NIGERIEN >60 >=60 mL/min/1. 73m 2 TBH BUN CREATININE RATIO 20.4 TBH CALCIUM 8.5 8.5 - 10.1 mg/dL TBH BILIRUBIN TOTAL 0.2 0.2 - 1.0 mg/dL TBH ASPARTATE AMINO TRANSFERASE 17 15 - 37 U/L TBH ALANINE AMINOTRANSFERASE 17 14 - 59 U/L TBH ALKALINE PHOSPHATASE 72 46 - 116 U/L TBH TOTAL PROTEIN 7.0 6.4 - 8.2 g/dL TBH ALBUMIN LEVEL 2.9(L) 3.4 - 5.0 g/dL TBH GLOBULIN 4.1 g/dL TBH ALBUMIN GLOBULIN RATIO 0.7 TBH 07/22/2024 1:19 PM EDT 07/22/2024 1:48 PM EDT Narrative [facility] - 07/22/2024 2:14 PM EDT Clinton Debbie DO [facility] Final Result [facility] * (ABNORMAL) ALL CBC WITH AUTO DIFF (07/22/2024 1:19 PM EDT) TBH WBC 10.5 4.0 - 11.0 10 3/uL TBH TBH RBC 4.11(L) 4.20 - 5.40 10 6/uL TBH TBH HGB 11.3(L) 12.0 - 16.0 g/dL TBH TBH HCT 34.7(L) 36.0 - 48.0 % TBH TBH MCV 84.4 81.0 - 99.0 fL TBH TBH MCH 27.5 26.7 - 34.0 pg TBH TBH MCHC 32.6 29.9 - 35.2 g/dL TBH TBH RDW 12.8 11.0 - 15.0 % TBH TBH PLT 400 150 - 450 10 3/uL TBH TBH MPV 10.0 9.5 - 13.5 fL TBH NEUTROPHILS PERCENT AUTO 65.9 43.0 - 75.0 % TBH LYMPHOCYTES PERCENT AUTO 25.7 20.5 - 60.0 % TBH MONOCYTES PERCENT AUTO 6.8 1.7 - 12.0 % TBH TBH EO % 0.7(L) 0.9 - 7.0 % TBH BASOPHILS PERCENT AUTO 0.4 0.2 - 2.0 % TBH IMMATURE GRANULOCYTES PCT AUTO 0.5 0.0 - 0.5 % TBH NEUTROPHILS ABSOLUTE AUTO 6.9(H) 1.4 - 6.5 10 3/uL TBH LYMPHOCYTES ABSOLUTE AUTO 2.7 1.2 - 3.8 10 3/uL TBH MONOCYTES ABSOLUTE AUTO 0.7 0.3 - 0.8 10 3/uL TBH TBH EO # 0.1 0.0 - 0.7 10 3/uL TBH BASOPHILS ABSOLUTE AUTO 0.0 0.0 - 0.1 10 3/uL TBH IMMATURE GRANULOCYTES ABS AUTO 0.05(H) 0.00 - 0.03 10 3/uL TBH 07/22/2024 1:19 PM EDT 07/22/2024 1:48 PM EDT Narrative [facility] - 07/22/2024 2:16 PM EDT us Clinton Debbie DO [facility] Final Result [facility] from Last [address] [facility] Care Teams Parachute Marker Relationship Specialty Start Date End Date Xena Mccallum MD [address] [place] [address] PCP - General Family Medicine 09/04/22 Isabel Li NP PCP - [facility] 10/28/23
--- OUTSIDE RECORDS SUMMARY | 2024-10-10 16:47 | XMS_ITS | Encounter Summary ---
Author Organization [facility] Address [address] [facility] [place] [address] Care Team Providers Care Bulk Sealer Operator Name Role Phone Xena Mccallum MD Primary Care Provider [phone] Isabel Li BOTTLE BLOWER Unavailable Encounter Details Date Type Department Care Team (Late st Contact Info) Description 11/11/2023 Orders Only [facility] OB [address] [place] [address] Maribell Peraza LPN [address] [facility] [id number] Social History Tobacco Use Types Packs/Day Years [...] 1:30 PM EDT Routine [facility] OB [address] [place] [address] [place] [address] Douglas Lewis, [address] [place] [address] 10/28/2024 9:00 AM EDT Routine [facility] OB [address] [place] [address] [place] [address] Maddie Chan PA [address] [facility] [place] [address] 11/04/2024 10:50 AM EDT Routine [facility] BCP OB [address] [place] [address] [place] [address] Douglas Lewis, [address] [place], [facility] documented as of this encounter Procedures Procedure Name Priority Date/Time Associated Diagnosis Comments PAP SMEAR Routine 11/05/2023 12:00 AM EDT documented in this encounter Results * Pap Smear (11/05/2023 12:00 AM EDT) Swab Cervical swab / Unknown us [facility] Bcp Ob Debbie Nurse LAB CYTOLOGY ORDERABLES Final Result EXTERNAL LAB documented in this encounter Visit Diagnoses Not on filedocumented in this encounter Care Teams Bulk Sealer Operator Relationship Specialty Start Date End Date Xena Mccallum MD [address] [place] [address] PCP - General Family Medicine 09/04/22 Isabel Li NP PCP - [facility] 10/28/23 documented as of this encounter
--- OUTSIDE RECORDS SUMMARY | 2024-10-10 16:47 | XMS_ITS | Encounter Summary ---
Author Organization [facility] Address [address] [facility] [place] [address] Care Team Providers Care Fiberglass Fabricator Name Role Phone Xena Mccallum MD Primary Care Provider [phone] Xena Mccallum MD Unavailable Isabel Li NP Unavailable Encounter Details Date Type Department Care Team (Late st Contact Info) Description 07/22/2023 Abstract [facility]NR [address] [place] [address] Isabel Li CONTACT LENS LATHE OPERATOR Social History Tobacco Use Types Packs/Day [...] 1:30 PM EDT Routine [facility] BCP OB [address] [place] [address] [place] [phone] Douglas Lewis, [address] [place] [address] 10/28/2024 9:00 AM EDT Routine [facility] BCP OB [address] [place] [address] [place] [address] Maddie Chan PA [address] [facility] [place] [address] 11/04/2024 10:50 AM EDT Routine [facility] BCP OB [address] [place] [address] [place] [address] Douglas Lewis, [address] [place] [address] documented as of this encounter Visit Diagnoses Not on filedocumented in this encounter Care Teams Fiberglass Fabricator Relationship Specialty Start Date End Date Xena Mccallum MD [address] [place], [place] [phone] PCP - General Family Medicine 09/04/22 Xena Mccallum MD [address] [place], [place] [address] PCP - [facility] 07/29/23 Isabel Li NP PCP - [facility] 10/28/23 documented as of this encounter
--- OUTSIDE RECORDS SUMMARY | 2024-10-10 16:47 | XMS_ITS | Encounter Summary ---
Author Organization [facility] Address [address] [facility] [place] [address] Care Team Providers Care Button Cutting Machine Operator Name Role Phone Narinder Hernandez MD Primary Care Provider [phone] Isabel Li STAMPING OPERATOR Unavailable Encounter Details Date Type Department Care Team (Late Contact Info) Description 04/17/2024 Clinisync Result Encounter NOMS External Department Unsolicited [...] BCP OB [address] [place] [phone] Clinton Lewis, [address] [place] [address] 10/28/2024 9:00 AM EDT Routine [facility] BCP OB [address] [place] [address] [place] [address] Maddie Chan PA [address] [place] [address] [place] [address] 11/04/2024 10:50 AM EDT Routine [facility] BCP OB [address] [place] [address] [place] [phone] Clinton Lewis, [address] [place] [address] documented as of this encounter Procedures Procedure Name Priority Date/Time Associated Diagnosis Comments US OB TRANSVAGINAL 04/17/2024 11 :10 AM EST documented in this encounter Results * US OB TRANSVAGINAL (04/17/2024 11:10 AM EST) Anatomical Region Laterality Modality Other 04/17/2024 11:1 0 AM EST Narrative 04/17/2024 2:43 [place] [address] Ultrasound Report Signed Patient: TAN MARS MR#: [id number] : 1995 Acct:[id number] Age/Sex: 29 / F ADM Date: 04/17/24 Loc: NOMS Attending Dr: Clinton Lewis D.O. Ordering Physician: Clinton Lewis D.O. Date of Service: 04/17/24 Procedure(s): US OB transvaginal Accession Number(s): [id number] cc: NARINDER HERNANDEZ ; Clinton Lewis D.O. [place] [address] Patient Name: TAN MARS MRN: [id number] date: 1995 Sex: F Assigned Patient Location: [facility] Current Patient Location: [facility] Accession/Order Number: [id number] Exam Date: 04/17/2024 09:28 Report Date: 04/17/2024 11:10 At the request of: CLINTON LEWIS Procedure: US OB transvaginal EXAMINATION: US OB transvaginal HISTORY: MISSED MENSES COMPARISON: No relevant comparison available. FINDINGS: Transvaginal images Dooley intrauterine gestation Gestational sac: 3.53 cm, 8 weeks 5 days CRL: 2.72 cm Heart rate: 174 beats minute Cervix: Closed, 4.3 cm The uterus is normal, anteverted, anteflexed The ovaries are normal Clinical age: 9 weeks 1 day Clinical CALOS: 11/19/2024 Ultrasound age: 9 weeks 4 days Ultrasound CALOS: 11/16/2024 US/US OB transvaginal IMPRESSION: Viable dooley intrauterine gestation measuring 9 weeks 4 days Electronically authenticated by: GENARO RODRÍGUEZ Date: 04/17/2024 11:10 Dictated By: Genaro Rodríguez M.D. Signed By: 04/17/24 1443 DD/ 1110 TD/TT: Mail Carriers Supervisor: Procedure Note Radiology, Radiologist, MD - 04/17/2024 [place] [address] Ultrasound Report Signed Patient: TAN MARS RMR#: [id number] : 1995Acct:[id number] Age/Sex: 29 / FADM Date: 04/17/24 Loc: NOMS Attending Dr: Clinton Lewis D.O. Ordering Physician: Clinton Lewis D.O. Date of Service: 04/17/24 Procedure(s): US OB transvaginal Accession Number(s): [id number] cc: NARINDER HERNANDEZ ; Clinton Lewis D.O. The [place] [id number] Patient Name: TAN MARS MRN: [id number] date: 1995 Sex: F Assigned Patient Location: [facility] Current Patient Location: [facility] Accession/Order Number: [id number] Exam Date: 04/17/2024 09:28 Report Date: 04/17/2024 11:10 At the request of: CLINTON LEWIS Procedure: US OB transvaginal EXAMINATION: US OB transvaginal HISTORY: MISSED MENSES COMPARISON: No relevant comparison available. FINDINGS: Transvaginal images Dooley intrauterine gestation Gestational sac: 3.53 cm, 8 weeks 5 days CRL: 2.72 cm Heart rate: 174 beats minute Cervix: Closed, 4.3 cm The uterus is normal, anteverted, anteflexed The ovaries are normal Clinical age: 9 weeks 1 day Clinical CALOS: 11/19/2024 Ultrasound age: 9 weeks 4 days Ultrasound CALOS: 11/16/2024 US/US OB transvaginal IMPRESSION: Viable dooley intrauterine gestation measuring 9 weeks 4 days Electronically authenticated by: GENARO RODRÍGUEZ Date: 04/17/2024 11:10 Dictated By: Genaro Rodríguez M.D. Signed By:04/17/24 1443 DD/ 1110 TD/TT: Mail Carriers Supervisor: us Generic External Data Provider [facility] Final Result documented in this encounter Visit Diagnoses Not on filedocumented in this encounter Care Teams Button Cutting Machine Operator Relationship Specialty Start Date End Date Narinder Hernandez MD [address] [place] [address] PCP - General Family Medicine 09/04/22 Isabel Li NP PCP - [facility] 10/28/23 documented as of this encounter
--- OUTSIDE RECORDS SUMMARY | 2024-10-10 16:47 | XMS_ITS | Encounter Summary ---
Author Organization [facility] Address [address] [facility] [place] [address] Care Team Providers Care Instructor Programmable Controllers Name Role Phone Xena Mccallum MD Primary Care Provider [phone] Isabel Li REFRIGERATOR ASSEMBLER Unavailable Encounter Details Date Type Department Care Team (Late st Contact Info) Description 05/18/2024 Abstract [facility] [address] [place] [id number] Douglas Lewis, DO [address] Gabriela [place], [facility] Social History Tobacco Use Types Packs/Day Years [...] 1:30 PM EDT Routine [facility] [address] [place] [address] [place] [phone] Douglas Lewis, DO [address] [facility] [place] [address] 10/28/2024 9:00 AM EDT Routine [facility] [address] [place] [address] [place] [phone] Maddie Chan PA [address] [facility] [place] [address] 11/04/2024 10:50 AM EDT Routine [facility] [address] [place] [address] [place] [phone] Douglas Lewis, DO [address] [place] [address] [place] [address] documented as of this encounter Visit Diagnoses Not on filedocumented in this encounter Care Teams Instructor Programmable Controllers Relationship Specialty Start Date End Date Xena Mccallum MD [address] [place] [address] PCP - General Family Medicine 09/04/22 Isabel Li NP PCP - [facility] 10/28/23 documented as of this encounter
--- OUTSIDE RECORDS SUMMARY | 2024-10-10 16:48 | XMS_ITS | CCD ---
Author Organization [facility] Care Team Providers Care Stripe Matcher Name Role Phone XENA MCCALLUM Primary Care [...] Unavailable Xena Mccallum MD Primary Care Provider [phone] Guillermo ALVARADO, Isabel Higgins Unavailable Guillermo WEAPONS DESIGNERIsabel Unavailable DEBBIE, DOUGLAS Attending Unavailable KATIUSKA, MADDIE Attending Unavailable KATIUSKA, MADDIE Referring Unavailable DEBBIE, DOUGLAS Attending Unavailable DEBBIE, DOUGLAS Attending Unavailable DEBBIE, DOUGLAS Attending Unavailable DEBBIE, DOUGLAS Referring Unavailable DEBBIE, DOUGLAS Attending Unavailable DEBBIE, DOUGLAS Attending Unavailable DEBBIE, DOUGLAS Attending Unavailable MARY XENA F Attending Unavailable MARY XENA Bentley Referring Unavailable Allergies Allergy Classification Reported Allergen(s) Allergy Type Date of Onset Reaction(s) Facility (20 sources) Clindamycin; Translations: [clindamycin] Drug Allergy 4 Swelling [facility] (3 sources) Penicillin; Translations: [penicillin] Drug Allergy Rash [facility] (2 sources) Clindamycin Drug Allergy 1 [facility] (1 source) Penicillins Drug allergy (disorder) 4 [facility] Repository (20 sources) Lamotrigine Allergy to substance 4 [facility] (20 sources) Morphine Drug Allergy 4 Hives [facility] Healthcare (20 sources) Penicillins Drug Allergy 6 Rash, Unknown [facility] Medications Current Medications Medication Drug [...] Start Date: 03/22/21 Status: Ordered Calcium Carbonate (5 sources) take 1 tablet by mouth once daily Calcium Carbonate (CALCIUM 500 PO) Take 1 tablet by mouth Daily Active cephalexin 500 mg oral capsule (2 sources) Cephalosporin Antibacterial Start: take 1 mg by mouth every twelve hours Keflex 500 mg Cap mg cap(s), Oral, q12hr, Refills(s) 0 Start Date: 03/22/21 Status: Ordered citalopram 20 mg oral tablet (8 sources) Serotonin Reuptake Inhibitor Start: End: take 1 tablet by mouth once daily citalopram (CeleXA) 20 MG tablet Indications: Mood changes Take 1 tablet (20 mg) by mouth Daily 30 tablet 11 09/08/2024 09/08/2025 Active cyclobenzaprine hydrochloride 5 mg oral tablet (12 sources) Muscle Relaxant Start: End: take 1 [...] Active ferrous sulfate 325 mg oral tablet (5 sources) take 1 tablet by mouth once [...] Status: Ordered MV-Min-Fe Fum-FA-DHA ( 1 PO) (5 sources) MV-Min-Fe Fum-FA-DHA ( 1 PO) Take 1 tablet by mouth Daily Active promethazine hydrochloride 12.5 mg oral tablet (18 sources) Phenothiazine Start: 08-03-2024 take 1 tablet [...] of ] 06-17-2024 Episodic Residual codes; unclassified (17 sources) Gestation period, 22 weeks; Translations: [22 [...] [31 weeks gestation of ] 09-23-2024 Episodic Residual codes; unclassified (2 sources) Gestation period, 33 weeks; Translations: [33 weeks gestation of ] 10-07-2024 Episodic Spondylosis; intervertebral disc disorders; other back problems (2 sources) Neck pain; Translations: [Cervicalgia] 02-19-2024 Episodic Unclassified (3 sources) CONTACT W/AND (SUSP) EXPOS COVID-19; Translations: [CONTACT W/AND (SUSP) EXPOS COVID-19] Onset: 2 Urinary tract infections (2 sources) Acute cystitis; Translations: [Acute cystitis without hematuria] 01-09-2024 Episodic Viral infection (1 source) COVID-19; Translations: [COVID-19] Onset: Past or Other Problems Problem Classification Problem [...] Episodic Other aftercare (1 source) 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 Ordering Physician: Douglas Lewis D.O. Date of Service: 10/07/24 Procedure(s): US OB BPP w non-stress Accession Number(s): [id number] cc: XENA MCCALLUM ; Douglas Lewis D.O. [place] [address] Patient Name: TAN MARS MRN: [id number] date: 1995 Sex: F Assigned Patient Location: [facility] Current Patient Location: Accession/Order Number: [id number] Exam Date: 10/07/2024 09:20 Report Date: 10/07/2024 09:21 At the request of: DOUGLAS LEWIS DO Procedure: US OB BPP w [...] Morales M.D. 10/07/2024 9:21 AM Dictation Location: [place] [address] Electronically authenticated by: [id number] Y Date: 10/07/2024 09:21 Dictated By: Thelma Morales M.D. Signed By: 10/07/24923 DD/ 0 TD/TT: Director Economic: [facility] Radiology, Radiologist, - 10/07/2024 [place] [address] Ultrasound Report Signed Patient: TAN MARS MR#: [id number] : 1995 Acct:[id number] Age/Sex: 29 / F ADM Date: 10/07/24 Loc: US Attending Dr: Douglas Lewis D.O. Ordering Physician: Douglas Lewis D.O. Date of Service: 10/07/24 Procedure(s): US OB BPP w non-stress Accession Number(s): [id number] cc: XENA MCCALLUM ; Douglas Lewis D.O. The [place] [id number] Patient Name: TAN MARS MRN: [facility]:[id number] date: 1995 Sex: F Assigned Patient Location: [facility] Current Patient Location: Accession/Order Number: [id number] Exam Date: 10/07/2024 09:20 Report Date: 10/07/2024 09:21 At the request of: DOUGLAS LEWIS DO Procedure: US OB BPP w [...] NORMAL BIOPHYSICAL PROFILE . Impression dictated by: Tehlma Morales M.D. 10/07/2024 9:21 AM Dictation Location: [place] [address] Electronically authenticated by: [id number] Y Date: 10/07/2024 09:21 Dictated By: Thelma Morales M.D. Signed By: 10/07/24923 DD/ 0 TD/TT: Director Economic: [facility] Radiology Study observation (narrative) [facility] US OB BPP W NON-STRESS Ordered By: Radiologist Radiology on 10-07-[address] [facility] Work Phone: Urinalysis macro (dipstick) panel (U)on 09-23-2024 Bilirubin, UA Negative Negative - 4(70) +++ mg/dL [facility] Blood, UA Negative Negative - 50 Liam/mcL [facility] Clarity, UA Clear [facility] Color, UA Yellow [facility] Glucose, UA Negative Negative - 2000(110) ++++ mg/dL [facility] Interpretation and review of laboratory results Abnormal [facility] Ketones, UA Negative Negative - 160(16) ++++ mg/dL [facility] Leukocytes, UA Trace Negative - 500+++ Mele/mcL [facility] Nitrite, UA Negative Negative - Positive [facility] pH, UA 7.5 5 - [address] [facility] Protein, UA Negative Negative - 2000(20) ++++ mg/dL [facility] Spec Grav, UA 1.02 1 - 1.[address] [facility] Urobilinogen, UA 0.2 0.2 - 12 mg/dL [facility] US OB FOLLOW UP TRANSABDOMIN AL APPROACHon [...] II, MD, PHD at 15-Sep-2024 10:59:56 PM [facility] Normal Not Available Comment on above: Order Comment: US OB SCAN FOR GROWTH Estimated Date of Delivery: 11/19/24 Gestational Age as of 09/08/2024: 29w5d [facility] CMP (CMP) (FOR REMOTE FH C USE)on 07-22-2024 Albumin [Mass/Vol] 2.9 g/dL Low 3.4 - 5.0 g/dL [facility] ALBUMIN GLOBULIN [facility]ATIO 0.7 [facility] ALP [Catalytic activity/Vol] 72 U/L 46 - 116 U/L [facility] ALT [Catalytic activity/Vol] 17 U/L 14 - 59 U/L [facility] Anion gap [Moles/Vol] 11.3 mmol/L [facility] AST [Catalytic activity/Vol] 17 U/L 15 - 37 U/L [facility] Bilirubin [Mass/Vol] 0.2 mg/dL 0.2 - 1 .0 mg/dL [facility] Calcium [Mass/Vol] 8.5 mg/dL 8.5 - 10. 1 mg/dL [facility] Chloride [Moles/Vol] 104 mmol/L 98 - 10 7 mmol/L [facility] CO2 [Moles/Vol] 25.6 mmol/L 21.0 - 32.0 mmol/L [facility] Creatinine [Mass/Vol] 0.49 mg/dL Low 0.55 - 1.02 mg/dL [facility] GFR/1.73 sq M.predicted CKD-EPI (S/P/Bld) [Vol rate/Area] >60 >=60 mL/min/1.73m [address] [facility] Globulin (S) [Mass/Vol] 4.1 g/dL [facility] Glucose [Mass/Vol] 85 mg/dL 74 - 106 mg/dL [facility] Interpretation and review of laboratory results Abnormal [facility] Potassium [Moles/Vol] 3.9 mmol/L 3.5 - 5.1 mmol/L [facility] Protein [Mass/Vol] 7 g/dL 6.4 - 8.2 g/dL [facility] Sodium [Moles/Vol] 137 mmol/L 136 - 145 mmol/L [facility] TBH EGFR-NON AF IVORIAN >60 >=60 mL/min/1.73m [address] [facility] Urea nitrogen [Mass/Vol] 10 mg/dL 7.0 - 18.0 mg/dL [facility] Urea nitrogen/Creatinine [Mass ratio] 20.4 mg/mg [facility] [employer]RO BILIRUBIN, DIRECTon Bilirubin.indirect [Mass/Vol] mg/dL 0.0 - 0.2 mg/dL [facility] No Panel Informationon 07-[address] [facility] Urinalysis macro (dipstick) panel (U)on 07-16-2024 Bilirubin, UA Negative Negative - 4(70) +++ mg/dL [facility] Blood, UA Negative Negative - 50 Liam/mcL [facility] Clarity, UA Cloudy [facility] Color, UA Yellow [facility] Glucose, UA 1+ Negative - 2000(110) ++++ mg/dL [facility] Comment on above: 500mg Interpretation and review of laboratory results Abnormal [facility] Ketones, UA Positive Negative - 160(16) ++++ mg/dL [facility] Comment on above: trace Leukocytes, UA Trace Negative - 500+++ Mele/mcL [facility] Nitrite, UA Negative Negative - Positive [facility] pH, UA 7 5 - [address] [facility] Protein, UA Negative Negative - 2000(20) ++++ mg/dL [facility] Spec Grav, UA 1.015 1 - 1.[address] [facility] Urobilinogen, UA 0.2 0.2 - 12 mg/dL [facility] US OB 14+ WEEKS ANATOMY SCAN on [...] II, MD, PHD at 11-Jul-2024 06:17:29 PM [facility] Normal Not Available Comment on above: Order Comment: US OB ANATOMY SINGLE W US OB CERVICAL LENGTH Estimated Date of Delivery: 11/19/24 Gestational Age as of 06/17/2024: 17w6d Urinalysis macro (dipstick) panel (U)on 06-17-2024 Bilirubin, UA Negative Negative - 4(70) +++ mg/dL [facility] Blood, UA Negative Negative - 50 Liam/mcL [facility] Healthcare Clarity, UA Clear [facility] Color, UA Yellow [facility] Glucose, UA Negative Negative - 1999(110) ++++ mg/dL [facility] Interpretation and review of laboratory results Abnormal [facility] Healthcare Ketones, UA Negative Negative - 160(16) ++++ mg/dL [facility] Leukocytes, UA Positive Negative - 500+++ Mele/mcL [facility] Comment on above: small Nitrite, UA Negative Negative - Positive [facility] pH, UA 7 5 - 9 [facility] Protein, UA Positive Negative - 1999(20) ++++ mg/dL [facility] Healthcare Comment on above: 30 mg Spec Grav, UA 1.015 1 - 1.03 [facility] Urobilinogen, UA 0.2 0.2 - 12 mg/dL [facility] Urinalysis macro (dipstick) panel (U)on 05-20-2024 Bilirubin, UA Negative Negative - 4(70) +++ mg/dL [facility] Blood, UA Negative Negative - 50 Liam/mcL [facility] Clarity, UA Clear [facility] Color, UA Yellow [facility] Glucose, UA Negative Negative - 1999(110) ++++ mg/dL [facility] Interpretation and review of laboratory results Normal [facility] Ketones, UA Negative Negative - 160(16) ++++ mg/dL [facility] Leukocytes, UA Negative Negative - 500+++ Mele/mcL [facility] Nitrite, UA Negative Negative - Positive [facility] pH, UA 5.5 5 - 9 [facility] Protein, UA Negative Negative - 1999(20) ++++ mg/dL [facility] Spec Grav, UA 1.03 1 - 1.[address] [facility] Urobilinogen, UA 0.2 0.2 - 12 mg/dL [facility] BOX TESTon 05-11-2024 BOX TEST SENT OUT [facility] BOX1 [facility] BOX2 05/11/2024 [facility] BOX [facility] HCG ( test) Ql (U)o n 04-17-2024 Interpretation and review of laboratory results Abnormal [facility] Preg Test, Ur Positive Negative [facility] Urinalysis macro (dipstick) panel (U)on 04-17-2024 Bilirubin, UA Negative Negative - 4(70) +++ mg/dL [facility] Blood, UA Negative Negative - 50 Liam/mcL [facility] Clarity, UA Clear [facility] Color, UA Yellow [facility] Glucose, UA Negative Negative - 2000(110) ++++ mg/dL [facility] Interpretation and review of laboratory results Normal [facility] Ketones, UA Negative Negative - 160(16) ++++ mg/dL [facility] Leukocytes, UA Negative Negative - 500+++ Mele/mcL [facility] Nitrite, UA Negative Negative - Positive [facility] pH, UA 6.5 5 - [address] [facility] Protein, UA Negative Negative - 2000(20) ++++ mg/dL [facility] Spec Grav, UA 1.02 1 - 1.[address] [facility] Urobilinogen, UA 0.2 0.2 - 12 mg/dL [facility] ALL CBC WITH AUTO DIFFon BASOPHILS ABSOLUTE AUTO 0.[address] [facility] Basophils/100 WBC (Bld) 0.6 % 0.2 - 2.0 % [facility] Eosinophils/100 WBC (Bld) 0.9 % 0.9 - 7.0 % [facility] Erythrocyte distribution width (RBC) [Ratio] 12.4 % 11.0 - 15.0 % [facility] Hematocrit (Bld) [Volume fraction] 43.7 % 36.0 - 48.0 % [facility] Hemoglobin (Bld) [Mass/Vol] 14.4 g/dL 12.0 - 16.0 g/dL [facility] IMMATURE GRANULOCYTES ABS AUTO 0.[address] [facility] Immature granulocytes/100 WBC (Bld) 0.3 % 0.0 - 0.5 % [facility] Interpretation and review of laboratory results Abnormal [facility] LYMPHOCYTES ABSOLUTE AUTO 4.[address] [facility] Lymphocytes/100 WBC (Bld) 38.1 % 20.5 - 60.0 % [facility] MCH (RBC) [Entitic mass] 28.5 pg 26.7 - 34.[address] [facility] MCHC (RBC) [Mass/Vol] 33.0 g/dL 29.9 - 35.2 g/dL [facility] MCV (RBC) [Entitic vol] 86.4 fL 81.0 - 99.[address] [facility] MONOCYTES ABSOLUTE AUTO 0.[address] [facility] Monocytes/100 WBC (Bld) 6.2 % 1.7 - 12.0 % [facility] NEUTROPHILS ABSOLUTE AUTO 5.[address] [facility] Neutrophils/100 WBC (Bld) 53.9 % 43.0 - 75.0 % [facility] Platelet mean volume (Bld) [Entitic vol] 9.8 fL 9.5 - 13.[address] [facility] EO # 0.[address] [facility] PLT 430 [facility] RBC 5.06 [facility] WBC 11.[address] [facility] CT ABDOMEN PELVIS WO IV CONT [facility] 01-16-2024 CT ABDOMEN PELVIS WO IV CONTRAST [...] report is generated using voice recognition reporting (Bitnamie). On occasion ZOGOtenniscribe erroneously drops words from the report or replaces the spoken word with similar sounding words. Please call with any questions/concerns regarding this report.* Dictated and transcribed 01/17/2024/anna Preliminary report sent to [facility] on 01/17/2024 at 9:45 a.m. Nikkie confirmed doctor has report in hand. This report has been electronically signed and approved by the interpreting radiologist. Electronically Signed Ab Retana M.D. 2024-01-17 11:31:48 Normal Not Available Comment on above: Order Comment: PEKVI C PAIN, PRESSURE, HEMATURIA, HX KIDNEY STONES Bacteria identified Cx Nom ( U)on 01-11-2024 Appearance (U) Adequate [facility] Internal identifier for Provider [id number] [facility] Specimen source Nom (Unsp spec) URINE [facility] STATUS FINAL [facility] Laboratory - Microbiology an d Antimicrobial susceptibilityon 01-11-2024 Bacteria identified Cx Nom (U) SEE NOTE [facility] Comment on above: Less than 10,000 CFU/mL of single Gram negative organism isolated. No further testing will be performed. If clinically indicated, recollection using a method to minimize contamination, with prompt transfer to Urine Culture Transport Tube, is recommended. Laboratory - Miscellaneous t estson 01-11-2024 Service comment (Unsp spec) [Interp] [facility] Comment on above: This urine was sanju zed for the presence of WBC, RBC, bacteria, casts, and other formed elements. Only those elements seen were reported. No Panel Informationon 01-10 Performing Organization Information Site ID: QPT Name: [employer] [facility] Address: [address] [place] [address], [address] [place] [phone] Director: Brenden Conde MD [facility] Urinalysis complete panel (U )on 01-11-2024 Appearance (U) CLEAR CLEAR [facility] Bacteria LM.HPF (Urine sed) [#/Area] NONE SEEN NONE SEEN /HPF [facility] Bilirubin Ql (U) Negative NEGATIVE [facility] Color (U) YELLOW YELLOW [facility] Epithelial cells.squamous LM.HPF (Urine sed) [#/Area] 0-5 < OR = 5 /HPF [facility] Glucose Ql (U) Negative NEGATIVE [facility] Hemoglobin Ql (U) Negative NEGATIVE [facility] Hyaline casts (Urine sed) [#/Area] NONE SEEN NONE SEEN /LPF [facility] Interpretation and review of laboratory results Abnormal [facility] Ketones Ql (U) Negative NEGATIVE [facility] Leukocyte esterase Test strip Ql (U) 1+ Abnormal NEGATIVE [facility] Nitrite Ql (U) Negative NEGATIVE [facility] pH (U) 7.0 [pH] 5.0 - 8.[address] [facility] Protein Ql (U) Negative NEGATIVE [facility] RBC LM.HPF (Urine sed) [#/Area] 3-10 Abnormal < OR = 2 /HPF [facility] Specific gravity (U) [Rel density] 1.015 1.001 - 1.[address] [facility] WBC LM.HPF (Urine sed) [#/Area] 0-5 < OR = 5 /HPF [facility] Urinalysis macro (dipstick) panel (U)on 01-09-2024 Bilirubin, UA Negative Negative - 4(70) +++ mg/dL [facility] Blood, UA Positive Negative - 50 Liam/mcL [facility] Clarity, UA Clear [facility] Color, UA Light Yellow [facility] Glucose, UA Negative Negative - 1999(110) ++++ mg/dL [facility] Interpretation and review of laboratory results Abnormal [facility] Ketones, UA Negative Negative - 160(16) ++++ mg/dL [facility] Leukocytes, UA 1+ Negative - 500+++ Mele/mcL [facility] Nitrite, UA Negative Negative - Positive [facility] pH, UA 6.0 5 - [address] [facility] Protein, UA Trace Negative - 1999(20) ++++ mg/dL [facility] Spec Grav, UA 1.020 1 - 1.[address] [facility] Urobilinogen, UA 1.0 0.2 - 12 mg/dL [facility] Physician Orderon 03-26-2023 Physician Order [id number] #[id number] Normal [facility] 09-13-2022 Forms [id number] #[id number]:127 Normal [facility] XR KUB 1 VIEWon 04-09-2022 XR [...] by: GENARO RODRÍGUEZ Date: 2022-04-09 18:02 Normal [facility] VITAMIN B1 (THIAMINE)on Vit. B1, Whole Blood 117.7 nmol/L Normal 66.5-200.0 [facility] Comment on above: Performed By: #### [facility] #### [facility] [address] [place] [address] Dr. Kerrie Russell CBC AUTO DIFFon 02-28-2022 BASO # 0.1 103/ul Normal 0.0-0.1 [facility] Comment on above: Performed By: #### C BC #### [facility] [address] [place] [address] Dr. Kerrie Russell Basophils/100 WBC (Bld) 0.6 % Normal 0.2-2.0 [facility] Comment on above: Performed By: #### C BC #### [facility] [address] [place] [address] Dr. Kerrie Russell EO # 0.1 103/ul Normal 0.0-0.7 [facility] Comment on above: Performed By: #### C BC #### [facility] [address] [place] [address] Dr. Kerrie Russell Eosinophils/100 WBC (Bld) 1.3 % Normal 0.9-7.0 [facility] Comment on above: Performed By: #### C BC #### [facility] [address] [place] [address] Dr. Kerrie Russell Erythrocyte distribution width (RBC) [Ratio] 13.2 % Normal 11.0-15.0 [facility] Comment on above: Performed By: #### C BC #### [facility] [address] [place] [address] Dr. Kerrie Russell Hematocrit (Bld) [Volume fraction] 40.6 % Normal 36.0-48.0 [facility] Comment on above: Performed By: #### C BC #### [facility] [address] [place] [address] Dr. Kerrie Russell Hemoglobin (Bld) [Mass/Vol] 13.8 g/dL Normal 12.0-16.0 [facility] Comment on above: Performed By: #### C BC #### [facility] [address] [place] [address] Dr. Kerrie Russell IG # 0.02 10e3/ul Normal 0.00-0.03 [facility] Comment on above: Performed By: #### C BC #### [facility] [address] [place] [address] Dr. Kerrie Russell IG % 0.2 % Normal 0.0-0.5 [facility] Comment on above: Performed By: #### C BC #### [facility] [address] [place] [address] Dr. Kerrie Russell LYMPH # 4.3 103/ul Critically high 1.2-3.8 [facility] Comment on above: Performed By: #### C BC #### [facility] [address] [place] [address] Dr. Kerrie Russell Lymphocytes/100 WBC (Bld) 49.2 % Normal 20.5-60.0 [facility] Comment on above: Performed By: #### C BC #### [facility] [address] [place] [address] Dr. Kerrie Russell MANUAL DIFF REQ NO Normal [facility] Comment on above: Performed By: #### C BC #### [facility] [address] [place] [address] Dr. Kerrie Russell MCH (RBC) [Entitic mass] 28.3 pg Normal 26.7-34.0 [facility] Comment on above: Performed By: #### C BC #### [facility] [address] [place] [address] Dr. Kerrie Russell MCHC (RBC) [Mass/Vol] 34.0 g/dL Normal 29.9-35.2 [facility] Comment on above: Performed By: #### C BC #### [facility] [address] [place] [address] Dr. Kerrie Russell MCV (RBC) [Entitic vol] 83.2 fL Normal 81.0-99.0 [facility] Comment on above: Performed By: #### C BC #### [facility] [address] [place] [address] Dr. Kerrie Russell MONO # 0.5 103/ul Normal 0.3-0.8 [facility] Comment on above: Performed By: #### C BC #### [facility] [address] [place] [address] Dr. Kerrie Russell Monocytes/100 WBC (Bld) 5.9 % Normal 1.7-12.0 [facility] Comment on above: Performed By: #### C BC #### [facility] [address] [place] [address] Dr. Kerrie Russell NEUT # 3.7 103/ul Normal 1.4-6.5 [facility] Comment on above: Performed By: #### C BC #### [facility] [address] [place] [address] Dr. Kerrie Russell Neutrophils/100 WBC (Bld) 42.8 % Critically low 43.0-75.0 [facility] Comment on above: Performed By: #### C BC #### [facility] [address] [place] [address] Dr. Kerrie Russell Platelet mean volume (Bld) [Entitic vol] 9.6 fL Normal 9.5-13.5 [facility] Comment on above: Performed By: #### C BC #### [facility] [address] [place] [address] Dr. Kerrie Russell PLT 403 103/ul Normal 150-450 [facility] Comment on above: Performed By: #### C BC #### [facility] [address] [place] [address] Dr. Kerrie Russell RBC 4.88 106/ul Normal 4.20-5.40 [facility] Comment on above: Performed By: #### C BC #### [facility] [address] [place] [address] Dr. Kerrie Russell WBC 8.7 103/ul Normal 4.0-11.0 [facility] Comment on above: Performed By: #### C BC #### [facility] [address] [place] [address] Dr. Kerrie Russell FERRITINon 02-28-2022 Ferritin [Mass/Vol] 73.0 ng/mL Normal 6.2-137.0 [facility] Comment on above: Performed By: #### P HOS, MG, CMP #### [facility] [address] [place] [address] Dr. Kerrie Russell IRON AND TIBCon 02-28-2022 % SATURATION 12.4 % Normal [facility] Comment on above: Performed By: #### P HOS, MG, CMP #### [facility] [address] [place] [address] Dr. Kerrie Russell Iron [Mass/Vol] 44.0 ug/dL Critically low 50.0-170.0 [facility] Comment on above: Performed By: #### P HOS, MG, CMP #### [facility] [address] [address] [address] Kerrie Russell TIBC DIRECT 354.0 ug/dL Normal 250.0-450.0 [facility] Comment on above: Performed By: #### P HOS, MG, CMP #### [facility] [address] [place] [address] Dr. Kerrie Russell MAGNESIUMon 02-28-2022 Magnesium [Mass/Vol] 1.9 mg/dL Normal 1.8-2.4 [facility] Comment on above: Performed By: #### M G, PHOS, CMP #### [facility] [address] [place] [address] Dr. Kerrie Russell PHOSPHORUSon 02-28-2022 Phosphate [Mass/Vol] 3.7 mg/dL Normal 2.6-4.7 [facility] Comment on above: Performed By: #### M G, PHOS, CMP #### [facility] [address] [place] [address] Dr. Kerrie Russell PROF 14(COMP METB)on 022 Albumin [Mass/Vol] 3.9 g/dL Normal 3.4-5.0 [facility] Comment on above: Performed By: #### M G, PHOS, CMP #### [facility] [address] [place] [address] Dr. Kerrie Russell Albumin/Globulin [Mass ratio] 1.1 {ratio} Normal [facility] Comment on above: Performed By: #### M G, PHOS, CMP #### [facility] [address] [place] [address] Dr. Kerrie Russell ALP [Catalytic activity/Vol] 99 U/L Normal 46-116 [facility] Comment on above: Performed By: #### M Daisha PHOS, CMP #### [facility] [address] [place] [address] Dr. Kerrie Russell ALT [Catalytic activity/Vol] 32 U/L Normal 14-59 [facility] Comment on above: Performed By: #### M Daisha PHOS, CMP #### [facility] [address] [place] [address] Dr. Kerrie Russell Anion gap [Moles/Vol] 9.3 mmol/L Normal [facility] Comment on above: Performed By: #### Bryan Ashton PHOS, CMP #### [facility] [address] [place] [address] Dr. Kerrie Russell AST [Catalytic activity/Vol] 17 U/L Normal 15-37 [facility] Comment on above: Performed By: #### Bryan Ashton PHOS, CMP #### [facility] [address] [place] [address] Dr. Kerrie Russell Bilirubin [Mass/Vol] 0.2 mg/dL Normal 0.2-1.0 [facility] Comment on above: Performed By: #### Bryan Ashton PHOS, CMP #### [facility] [address] [place] [address] Dr. Kerrie Russell Calcium [Mass/Vol] 8.5 mg/dL Normal 8.5-10.1 [facility] Comment on above: Performed By: #### Bryan Ashton PHOS, CMP #### [facility] [address] [place] [address] Dr. Kerrie Russell Chloride [Moles/Vol] 107 mmol/L Normal 98-107 [facility] Comment on above: Performed By: #### Bryan Ashton PHOS, CMP #### [facility] [address] [place] [address] Dr. Kerrie Russell CO2 [Moles/Vol] 27.0 mmol/L Normal 21.0-32.0 [facility] Comment on above: Performed By: #### Bryan Ashton PHOS, CMP #### [facility] [address] [place], [place] [id number] Dr. Kerrie Russell Creatinine [Mass/Vol] 0.65 mg/dL Normal 0.55-1.02 [facility] Comment on above: Performed By: #### SUZANNE Cook, CMP #### [facility] [address] [address] [address] Kerrie Russell EGFR-AF IVORIAN >60 Normal >=60 [facility] Comment on above: Performed By: #### SUZANNE Cook, CMP #### [facility] [address] [address] [address] Kerrie Russell EGFR-NON AF IVORIAN >60 Normal >=60 [facility] Comment on above: Performed By: #### SUZANNE Cook, CMP #### [facility] [address] [place] [address] Dr. Kerrie Russell Globulin (S) [Mass/Vol] 3.6 g/dL Normal [facility] Comment on above: Performed By: #### SUZANNE Cook, CMP #### [facility] [address] [place] [address] Dr. Kerrie Russell Glucose [Mass/Vol] 89 mg/dL Normal 74-106 [facility] Comment on above: Performed By: #### SUZANNE Cook, CMP #### [facility] [address] [place] [address] Dr. Kerrie Russell Potassium [Moles/Vol] 3.3 mmol/L Critically low 3.5-5.1 [facility] Comment on above: Performed By: #### SUZANNE Cook, CMP #### [facility] [address] [place] [address] Dr. Kerrie Russell Protein [Mass/Vol] 7.5 g/dL Normal 6.4-8.2 [facility] Comment on above: Performed By: #### SUZANNE Cook, CMP #### [facility] [address] [address] [address] Kerrie Russell Sodium [Moles/Vol] 140 mmol/L Normal 136-145 [facility] Comment on above: Performed By: #### M G, PHOS, CMP #### [facility] [address] [address] [address] Kerrie Russell Urea nitrogen [Mass/Vol] 9.0 mg/dL Normal 7.0-18.0 [facility] Comment on above: Performed By: #### M Daisha PHOS, CMP #### [facility] [address] [place] [address] Dr. Kerrie Russell Urea nitrogen/Creatinine [Mass ratio] 13.8 mg/mg Normal [facility] Comment on above: Performed By: #### M NATHALY AshtonS, CMP #### [facility] [address] [place] [address] Dr. Kerrie Russell VIT B12 AND FOLATEon 022 Cobalamin (Vitamin B12) [Mass/Vol] 538.0 pg/mL Normal 193.0-986.0 [facility] Comment on above: Performed By: #### P HOS, MG, CMP #### [facility] [address] [place] [address] Dr. Kerrie Russell FOLATE 8.50 ng/mL Critically low 8.60-58.90 [facility] Comment on above: Performed By: #### P HOS, MG, CMP #### [facility] [address] [place] [address] Dr. Kerrie Russell VITAMIN D 25 OHon 02-28-2022 VIT D 25-OH 33.0 ng/mL Normal [facility] Comment on above: Performed By: #### P HOS, MG, CMP #### [facility] [address] [place] [address] Dr. Kerrie Russell VIT D RANGES SEE BELOW Normal [facility] Comment on above: Result Comment: <20 ng/mL Vit D deficient 20 - <30 ng/mL Vit D insufficient 30 - 100 ng/mL Vit D sufficient >100 ng/mL Potential Toxicity Performed By: #### P HOS, MG, CMP #### [facility] [address] [place] [address] Dr. Kerrie Russell Covid-19 PCR (CVDTB)on SARS-CoV-2 (COVID-19) RNA DEZ+probe Ql (Unsp spec) Not detected Normal NOT DETECTED [facility] Comment on above: Result Comment: This test is not yet approved or cleared by the [place] FDA. When there are no FDA-approved or cleared tests available, and other criteria are met, FDA can make tests available under an emergency access mechanism called an Emergency Use Authorization (EUA). The EUA for this test is supported by the [place] Operator of Health and Human Service's (HHS's) declaration [...] consistent with SARS-CoV-2. Performed By: #### [facility] #### [facility] [address] [place] [address] Dr. Kerrie Russell Covid-19 PCR ([facility])on SARS-CoV-2 (COVID-19) RNA DEZ+probe Ql (Unsp spec) Not detected Normal NOT DETECTED [facility] Comment on above: Result Comment: This test is not yet approved or cleared by the [place] FDA. When there are no FDA-approved or cleared tests available, and other criteria are met, FDA can make tests available under an emergency access mechanism called an Emergency Use Authorization (EUA). The EUA for this test is supported by the [place] Operator of Health and Human Service's (HHS's) declaration [...] By: #### P HOS, MG, CMP #### [facility] [address] [place] [address] Dr. Kerrie Russell VITAMIN B1 (THIAMINE)on 07-29 Vit. B1, Whole Blood 118.6 nmol/L Normal 66.5-200.0 [facility] Comment on above: Performed By: #### C VDTBH #### [facility] [address] [place] [address] Dr. Kerrie Russell CBC AUTO DIFFon 08-11-2021 BASO # 0.0 103/ul Normal 0.0-0.1 [facility] Comment on above: Performed By: #### P HOS, MG, CMP #### [facility] [address] [place] [address] Dr. Kerrie Russell Basophils/100 WBC (Bld) 0.3 % Normal 0.2-2.0 [facility] Comment on above: Performed By: #### P HOS, MG, CMP #### [facility] [address] [place] [address] Dr. Kerrie Russell EO # 0.1 103/ul Normal 0.0-0.7 [facility] Comment on above: Performed By: #### P HOS, MG, CMP #### [facility] [address] [place] [address] Dr. Kerrie Russell Eosinophils/100 WBC (Bld) 1.5 % Normal 0.9-7.0 [facility] Comment on above: Performed By: #### P HOS, MG, CMP #### [facility] [address] [place] [address] Dr. Kerrie Russell Erythrocyte distribution width (RBC) [Ratio] 15.9 % Critically high 11.0-15.0 [facility] Comment on above: Performed By: #### P HOS, MG, CMP #### [facility] [address] [place] [address] Dr. Kerrie Russell Hematocrit (Bld) [Volume fraction] 34.2 % Critically low 36.0-48.0 [facility] Comment on above: Performed By: #### P HOS, MG, CMP #### [facility] [address] [address] [address] Kerrie Russell Hemoglobin (Bld) [Mass/Vol] 10.1 g/dL Critically low 12.0-16.0 [facility] Comment on above: Performed By: #### P HOS, MG, CMP #### [facility] [address] [place] [address] Dr. Kerrie Russell IG # 0.03 10e3/ul Normal 0.00-0.03 [facility] Comment on above: Performed By: #### P HOS, MG, CMP #### [facility] [address] [place] [address] Dr. Kerrie Russell IG % 0.3 % Normal 0.0-0.5 [facility] Comment on above: Performed By: #### P HOS, MG, CMP #### [facility] [address] [place] [address] Dr. Kerrie Russell LYMPH # 3.3 103/ul Normal 1.2-3.8 [facility] Comment on above: Performed By: #### P HOS, MG, CMP #### [facility] [address] [place] [address] Dr. Kerrie Russell Lymphocytes/100 WBC (Bld) 37.2 % Normal 20.5-60.0 [facility] Comment on above: Performed By: #### P HOS, MG, CMP #### [facility] [address] [place] [address] Dr. Kerrie Russell MANUAL DIFF REQ NO Normal [facility] Comment on above: Performed By: #### P HOS, MG, CMP #### [facility] [address] [place] [address] Dr. Kerrie Russell MCH (RBC) [Entitic mass] 20.7 pg Critically low 26.7-34.0 [facility] Comment on above: Performed By: #### P HOS, MG, CMP #### [facility] [address] [place] [address] Dr. Kerrie Russell MCHC (RBC) [Mass/Vol] 29.5 g/dL Critically low 29.9-35.2 [facility] Comment on above: Performed By: #### P HOS, MG, CMP #### [facility] [address] [place] [address] Dr. Kerrie Russell MCV (RBC) [Entitic vol] 70.1 fL Critically low 81.0-99.0 [facility] Comment on above: Performed By: #### P HOS, MG, CMP #### [facility] [address] [place] [address] Dr. Kerrie Russell MONO # 0.6 103/ul Normal 0.3-0.8 [facility] Comment on above: Performed By: #### P HOS, MG, CMP #### [facility] [address] [place] [address] Dr. Kerrie Russell Monocytes/100 WBC (Bld) 7.3 % Normal 1.7-12.0 [facility] Comment on above: Performed By: #### P HOS, MG, CMP #### [facility] [address] [place] [address] Dr. Kerrie Russell NEUT # 4.7 103/ul Normal 1.4-6.5 [facility] Comment on above: Performed By: #### P HOS, MG, CMP #### [facility] [address] [place] [address] Dr. Kerrie Russell Neutrophils/100 WBC (Bld) 53.4 % Normal 43.0-75.0 [facility] Comment on above: Performed By: #### P HOS, MG, CMP #### [facility] [address] [place] [address] Dr. Kerrie Russell Platelet mean volume (Bld) [Entitic vol] 9.1 fL Critically low 9.5-13.5 [facility] Comment on above: Performed By: #### P HOS, MG, CMP #### [facility] [address] [place] [address] Dr. Kerrie Russell PLT 339 103/ul Normal 150-450 [facility] Comment on above: Performed By: #### P HOS, MG, CMP #### [facility] [address] [address] [address] Kerrie Russell RBC 4.88 106/ul Normal 4.20-5.40 [facility] Comment on above: Performed By: #### P HOS, MG, CMP #### [facility] [address] [address] [address] Kerrie Russell WBC 8.8 103/ul Normal 4.0-11.0 [facility] Comment on above: Performed By: #### P HOS, MG, CMP #### [facility] [address] [address] [address] Kerrie Russell FERRITINon 08-11-2021 Ferritin [Mass/Vol] 4.0 ng/mL Critically low 6.2-137.0 [facility] Comment on above: Performed By: #### C VDTBH #### [facility] [address] [place] [address] Dr. Kerrie Russell IRON AND TIBCon 08-11-2021 % SATURATION 3.7 % Normal [facility] Comment on above: Performed By: #### C VDTBH #### [facility] [address] [address] [address] Kerrie Russell Iron [Mass/Vol] 19.0 ug/dL Critically low 37.0-170.0 [facility] Comment on above: Performed By: #### C VDTBH #### [facility] [address] [address] [address] Kerrie Russell TIBC DIRECT 513.0 ug/dL Critically high 261.0-497.0 [facility] Comment on above: Performed By: #### C VDTBH #### [facility] [address] [address] [address] Kerrie Russell MAGNESIUMon 08-11-2021 Magnesium [Mass/Vol] 2.0 mg/dL Normal 1.6-2.3 [facility] Comment on above: Performed By: #### P HOS, MG, CMP #### [facility] [address] [address] [address] Kerrie Russell PHOSPHORUSon 08-11-2021 Phosphate [Mass/Vol] 4.8 mg/dL Critically high 2.5-4.5 [facility] Comment on above: Performed By: #### P HOS, MG, CMP #### [facility] [address] [address] [address] Kerrie Russell PROF 14(COMP METB)on 022 Albumin [Mass/Vol] 3.8 g/dL Normal 3.4-5.0 [facility] Comment on above: Performed By: #### P HOS, MG, CMP #### [facility] [address] [address] [address] Kerrie Russell Albumin/Globulin [Mass ratio] 0.9 {ratio} Normal [facility] Comment on above: Performed By: #### P HOS, MG, CMP #### [facility] [address] [place] [address] Dr. Kerrie Russell ALP [Catalytic activity/Vol] 74 U/L Normal 46-116 [facility] Comment on above: Performed By: #### P HOS, MG, CMP #### [facility] [address] [place] [address] Dr. Kerrie Russell ALT [Catalytic activity/Vol] 15 U/L Normal 14-59 [facility] Comment on above: Performed By: #### P HOS, MG, CMP #### [facility] [address] [place] [address] Dr. Kerrie Russell Anion gap [Moles/Vol] 13.3 mmol/L Normal [facility] Comment on above: Performed By: #### P HOS, MG, CMP #### [facility] [address] [place] [address] Dr. Kerrie Russell AST [Catalytic activity/Vol] 11 U/L Critically low 15-37 [facility] Comment on above: Performed By: #### P HOS, MG, CMP #### [facility] [address] [place] [address] Dr. Kerrie Russell Bilirubin [Mass/Vol] 0.2 mg/dL Normal 0.2-1.3 [facility] Comment on above: Performed By: #### P HOS, MG, CMP #### [facility] [address] [address] [address] Kerrie Russell Calcium [Mass/Vol] 8.3 mg/dL Critically low 8.5-10.1 [facility] Comment on above: Performed By: #### P HOS, MG, CMP #### [facility] [address] [address] [address] Kerrie Russell Chloride [Moles/Vol] 104 mmol/L Normal 98-107 [facility] Comment on above: Performed By: #### P HOS, MG, CMP #### [facility] [address] [address] [address] Kerrie Russell CO2 [Moles/Vol] 26.5 mmol/L Normal 22.0-30.0 [facility] Comment on above: Performed By: #### P HOS, MG, CMP #### [facility] [address] [place] [address] Dr. Kerrie Russell Creatinine [Mass/Vol] 0.60 mg/dL Normal 0.52-1.04 [facility] Comment on above: Performed By: #### P HOS, MG, CMP #### [facility] [address] [place] [address] Dr. Kerrie Russell EGFR-AF IVORIAN >60 Normal >=60 [facility] Comment on above: Performed By: #### P HOS, MG, CMP #### [facility] [address] [place] [address] Dr. Kerrie Russell EGFR-NON AF IVORIAN >60 Normal >=60 [facility] Comment on above: Performed By: #### P HOS, MG, CMP #### [facility] [address] [place] [address] Dr. Kerrie Russell Globulin (S) [Mass/Vol] 4.1 g/dL Normal [facility] Comment on above: Performed By: #### P HOS, MG, CMP #### [facility] [address] [place] [address] Dr. Kerrie Russell Glucose [Mass/Vol] 93 mg/dL Normal 74-106 [facility] Comment on above: Performed By: #### P HOS, MG, CMP #### [facility] [address] [place] [address] Dr. Kerrie Russell Potassium [Moles/Vol] 3.8 mmol/L Normal 3.4-5.0 [facility] Comment on above: Performed By: #### P HOS, MG, CMP #### [facility] [address] [place] [address] Dr. Kerrie Russell Protein [Mass/Vol] 7.9 g/dL Normal 6.1-8.2 [facility] Comment on above: Performed By: #### P HOS, MG, CMP #### [facility] [address] [place] [address] Dr. Kerrie Russell Sodium [Moles/Vol] 140 mmol/L Normal 137-145 [facility] Comment on above: Performed By: #### P HOS, MG, CMP #### [facility] [address] [place] [address] Dr. Kerrie Russell Urea nitrogen [Mass/Vol] 14.0 mg/dL Normal 7.0-18.0 [facility] Comment on above: Performed By: #### P HOS, MG, CMP #### [facility] [address] [place] [address] Dr. Kerrie Russell Urea nitrogen/Creatinine [Mass ratio] 23.3 mg/mg Normal [facility] Comment on above: Performed By: #### P HOS, MG, CMP #### [facility] [address] [place] [address] Dr. Kerrie Russell VIT B12 AND FOLATEon 022 Cobalamin (Vitamin B12) [Mass/Vol] 546.0 pg/mL Normal 239.0-931.0 [facility] Comment on above: Performed By: #### C VDTBH #### [facility] [address] [place] [address] Dr. Kerrie Russell FOLATE 17.80 ng/mL Normal >=2.76 [facility] Comment on above: Performed By: #### C VDTBH #### [facility] [address] [place] [address] Dr. Kerrie Russell VITAMIN D 25 OHon 08-11-2021 VIT D 25-OH 35.1 ng/mL Normal [facility] Comment on above: Performed By: #### C VDTBH #### [facility] [address] [place] [address] Dr. Kerrie Russell VIT D RANGES SEE BELOW Normal [facility] Comment on above: Result Comment: <20 ng/mL Vit D deficient 20 - <30 ng/mL Vit D insufficient 30 - 100 ng/mL Vit D sufficient >100 ng/mL Potential Toxicity Performed By: #### C VDTBH #### [facility] [address] [place], [place] [address] Dr. Kerrie Russell XR KUB 1 VIEWon [...] by: MELLISSA SEGAL Date: 2021-08-11 09:44 Normal [facility] Complete Blood Count with Au to Diffon 07-12-2021 Basophils (Bld) [#/Vol] 0.01 10*3/uL Normal 0.00-0.20 [facility] Comment on above: Performed By: #### F ERR, CBCAD, FE Prof, smear, CMP #### [facility] [address], [place] [id number] Basophils/100 WBC (Bld) 0.2 % Normal [facility] Comment on above: Performed By: #### F ERR, CBCAD, FE Prof, smear, CMP #### [facility] [address], [place] [id number] Eosinophils (Bld) [#/Vol] 0.14 10*3/uL Normal 0.02-0.50 [facility] Comment on above: Performed By: #### F ERR, CBCAD, FE Prof, smear, CMP #### [facility] [address], [place] [id number] Eosinophils/100 WBC (Bld) 2.8 % Normal [facility] Comment on above: Performed By: #### F ERR, CBCAD, FE Prof, smear, CMP #### [facility] [address], [place] [id number] Erythrocyte distribution width (RBC) [Ratio] 17.0 % High 11.0-15.0 [facility] Comment on above: Performed By: #### F ERR, CBCAD, FE Prof, smear, CMP #### [facility] [address], [place] [id number] Hematocrit (Bld) [Volume fraction] 34.8 % Low 35.0-47.0 [facility] Comment on above: Performed By: #### F ERR, CBCAD, FE Prof, smear, CMP #### [facility] [address], [place] [id number] Hemoglobin (Bld) [Mass/Vol] 9.8 g/dL Low 11.6-15.5 [facility] Comment on above: Performed By: #### F ERR, CBCAD, FE Prof, smear, CMP #### [facility] [address], [place] [id number] Lymphocytes (Bld) [#/Vol] 2.1 10*3/uL Normal 0.9-3.9 [facility] Comment on above: Performed By: #### F ERR, CBCAD, FE Prof, smear, CMP #### [facility] [address], [place] [id number] Lymphocytes/100 WBC (Bld) 42.3 % Normal [facility] Comment on above: Performed By: #### F ERR, CBCAD, FE Prof, smear, CMP #### [facility] [address], [place] [id number] MCH (RBC) [Entitic mass] 20.3 pg Low 27.0-33.0 [facility] Comment on above: Performed By: #### F ERR, CBCAD, FE Prof, smear, CMP #### [facility] [address] [place], [place] [id number] MCHC (RBC) [Mass/Vol] 28.2 g/dL Low 32.0-36.0 [facility] Comment on above: Performed By: #### F ERR, CBCAD, FE Prof, smear, CMP #### [facility] [address], [place] [id number] MCV (RBC) [Entitic vol] 72 fL Low 80-100 [facility] Comment on above: Performed By: #### F ERR, CBCAD, FE Prof, smear, CMP #### [facility] [address], [place] [id number] Monocytes (Bld) [#/Vol] 0.6 10*3/uL Normal 0.2-0.9 [facility] Comment on above: Performed By: #### F ERR, CBCAD, FE Prof, smear, CMP #### [facility] [address], [place] [id number] Monocytes/100 WBC (Bld) 11.4 % Normal [facility] Comment on above: Performed By: #### F ERR, CBCAD, FE Prof, smear, CMP #### [facility] [address], [place] [id number] Neutrophils (Bld) [#/Vol] 2.1 10*3/uL Normal 1.5-7.8 [facility] Comment on above: Performed By: #### F ERR, CBCAD, FE Prof, smear, CMP #### [facility] [address], [place] [id number] Neutrophils/100 WBC (Bld) 42.9 % Normal [facility] Comment on above: Performed By: #### F ERR, CBCAD, FE Prof, smear, CMP #### [facility] [address], [place] [id number] Platelet mean volume (Bld) [Entitic vol] 10.10 fL Normal 7.50-12.50 [facility] Comment on above: Performed By: #### F ERR, CBCAD, FE Prof, smear, CMP #### [facility] [address], [place] [id number] Platelets (Bld) [#/Vol] 368 10*3/uL Normal 140-400 [facility] Comment on above: Performed By: #### F ERR, CBCAD, FE Prof, smear, CMP #### [facility] [address], [place] [id number] RBC (Bld) [#/Vol] 4.82 10*6/uL Normal 3.90-5.20 [facility] Comment on above: Performed By: #### F ERR, CBCAD, FE Prof, smear, CMP #### [facility] [address], [place] [id number] RDW-SD 43.4 fL Normal 37.0-50.0 [facility] Comment on above: Performed By: #### F ERR, CBCAD, FE Prof, smear, CMP #### [facility] [address], [place] [id number] REFLEX Smear Review Normal [facility] Comment on above: Performed By: #### F ERR, CBCAD, FE Prof, smear, CMP #### [facility] [address], [place] [id number] WBC (Bld) [#/Vol] 4.9 10*3/uL Normal 3.8-11.0 [facility] Comment on above: Performed By: #### F ERR, CBCAD, FE Prof, smear, CMP #### [facility] [address], [place] [id number] Comprehensive Metabolic Pane celestino 07-12-2021 Albumin [Mass/Vol] 4.5 g/dL Normal 3.6-5.1 [facility] Comment on above: Performed By: #### F ERR, CBCAD, FE Prof, smear, CMP #### [facility] [address], [place] [id number] Albumin/Globulin [Mass ratio] 1.7 {ratio} Normal 1.0-2.5 [facility] Director Of Guidance Comment on above: Performed By: #### F ERR, CBCAD, FE Prof, smear, CMP #### [facility] [address], [place] [id number] ALP [Catalytic activity/Vol] 80 U/L Normal 35-119 [facility] Comment on above: Performed By: #### F ERR, CBCAD, FE Prof, smear, CMP #### [facility] [address], [place] [id number] ALT [Catalytic activity/Vol] 12 U/L Normal 6-33 [facility] Comment on above: Result Comment: 03/29 Female reference range changed. Performed By: #### F ERR, CBCAD, FE Prof, smear, CMP #### [facility] [address], [place] [id number] Anion gap [Moles/Vol] 18 mmol/L Normal 12-20 [facility] Comment on above: Result Comment: Effe ctive 05/04/2019 reference range changed. Performed By: #### F ERR, CBCAD, FE Prof, smear, CMP #### [facility] [address], [place] [id number] AST [Catalytic activity/Vol] 20 U/L Normal 9-34 [facility] Comment on above: Performed By: #### F ERR, CBCAD, FE Prof, smear, CMP #### [facility] [address], [place] [id number] BUN/CREA 19 Ratio Normal 6-22 [facility] Comment on above: Performed By: #### F ERR, CBCAD, FE Prof, smear, CMP #### [facility] [address], [place] [id number] Calcium [Mass/Vol] 8.8 mg/dL Normal 8.6-10.2 [facility] Comment on above: Performed By: #### F ERR, CBCAD, FE Prof, smear, CMP #### [facility] [address], [place] [id number] Chloride [Moles/Vol] 104 mmol/L Normal 98-107 [facility] Comment on above: Performed By: #### F ERR, CBCAD, FE Prof, smear, CMP #### [facility] [address], [place] [id number] CO2 [Moles/Vol] 22 mmol/L Normal 20-31 [facility] Comment on above: Performed By: #### F ERR, CBCAD, FE Prof, smear, CMP #### [facility] [address], [place] [id number] Creatinine [Mass/Vol] 0.6 mg/dL Normal 0.6-1.4 [facility] Comment on above: Performed By: #### F ERR, CBCAD, FE Prof, smear, CMP #### [facility] [address], [place] [id number] eGFRAA 155 mL/min/1.73m2 Normal >60 [facility]ist Comment on above: Performed By: #### F ERR, CBCAD, FE Prof, smear, CMP #### [facility] [address], [place] [id number] eGFRNAA 128 mL/min/1.73m2 Normal >60 [facility] Comment on above: Performed By: #### F ERR, CBCAD, FE Prof, smear, CMP #### [facility] [address], [place] [id number] Globulin (S) [Mass/Vol] 2.6 g/dL Normal 1.9-3.7 [facility] Comment on above: Performed By: #### F ERR, CBCAD, FE Prof, smear, CMP #### [facility] [address], [place] [id number] Glucose [Mass/Vol] 80 mg/dL Normal 65-99 [facility] Director Of Guidance Comment on above: Result Comment: For FASTING Glucose --- ADA reference ranges: Normal 65-99 mg/dl Prediabetes 100-125 Diabetes >/= 126 Performed By: #### F ERR, CBCAD, FE Prof, smear, CMP #### [facility] [address], [place] [id number] Potassium [Moles/Vol] 4.2 mmol/L Normal 3.5-5.5 [facility] Comment on above: Performed By: #### F ERR, CBCAD, FE Prof, smear, CMP #### [facility] [address], [place] [id number] Protein [Mass/Vol] 7.1 g/dL Normal 6.1-8.1 [facility] Director Of Guidance Comment on above: Performed By: #### F ERR, CBCAD, FE Prof, smear, CMP #### [facility] [address], [place] [id number] Sodium [Moles/Vol] 139 mmol/L Normal 135-146 [facility] Comment on above: Performed By: #### F ERR, CBCAD, FE Prof, smear, CMP #### [facility] [address], [place] [id number] TBIL <0.3 Normal [facility] Comment on above: Performed By: #### F ERR, CBCAD, FE Prof, smear, CMP #### [facility] [address], [place] [id number] Urea nitrogen [Mass/Vol] 11 mg/dL Normal 7-25 [facility] Comment on above: Performed By: #### F ERR, CBCAD, FE Prof, smear, CMP #### [facility] [address], [place] [id number] Ferritinon 07-12-2021 FERR 12.1 ng/mL Low 15.0-150.0 [facility] Comment on above: Performed By: #### F ERR, CBCAD, FE Prof, smear, CMP #### [facility] [address], [place] [id number] Iron Profileon 07-12-2021 %FESAT 6 % Low 11-50 [facility] Comment on above: Performed By: #### F ERR, CBCAD, FE Prof, smear, CMP #### [facility] [address], [place] [id number] FE 25 ug/dL Low 40-190 [facility] Comment on above: Result Comment: Refe rence range change 03/15/2017. Prior reference range F 37-145 ug/dL, M 59-158 ug/dL. Performed By: #### F ERR, CBCAD, FE Prof, smear, CMP #### [facility] [address], [place] [id number] TIBC 441 ug/dL Normal 250-450 [facility] Comment on above: Performed By: #### F ERR, CBCAD, FE Prof, smear, CMP #### [facility] [address], [place] [id number] UIBC 416 ug/dL High 112-347 [facility] Comment on above: Performed By: #### F ERR, CBCAD, FE Prof, smear, CMP #### [facility] [address], [place] [id number] Smear Reviewon 07-12-2021 PLT EST Adequate Normal [facility] Comment on above: Performed By: #### F ERR, CBCAD, FE Prof, smear, CMP #### [facility] [address], [place] [id number] RBC morphology finding Nom (Bld) RBC morphology review confirms RBC indices Normal [facility] Comment on above: Performed By: #### F ERR, CBCAD, FE Prof, smear, CMP #### [facility] [address], [place] [id number] CBC AUTO DIFFon 05-13-2021 BASO # 0.0 103/ul Normal 0.0-0.1 [facility] Comment on above: Performed By: #### C BC #### [facility] [address] [place] [address] Dr. Kerrie Russell Basophils/100 WBC (Bld) 0.1 % Critically low 0.2-2.0 [facility] Comment on above: Performed By: #### C BC #### [facility] [address] [place] [address] Dr. Kerrie Russell EO # 0.0 103/ul Normal 0.0-0.7 [facility] Comment on above: Performed By: #### C BC #### [facility] [address] [address] [address] Kerrie Russell Eosinophils/100 WBC (Bld) 0.0 % Critically low 0.9-7.0 [facility] Comment on above: Performed By: #### C BC #### [facility] [address] [place] [address] Dr. Kerrie Russell Erythrocyte distribution width (RBC) [Ratio] 15.0 % Normal 11.0-15.0 [facility] Comment on above: Performed By: #### C BC #### [facility] [address] [place] [address] Dr. Kerrie Russell Hematocrit (Bld) [Volume fraction] 25.2 % Critically low 36.0-48.0 [facility] Comment on above: Performed By: #### C BC #### [facility] [address] [place] [address] Dr. Kerrie Russell Hemoglobin (Bld) [Mass/Vol] 7.6 g/dL Critically low 12.0-16.0 [facility] Comment on above: Result Comment: Post delivery Performed By: #### C BC #### [facility] [address] [place] [address] Dr. Kerrie Russell IG # 0.08 10e3/ul Critically high 0.00-0.03 [facility] Comment on above: Performed By: #### C BC #### [facility] [address] [place] [address] Dr. Kerrie Russell IG % 1.0 % Critically high 0.0-0.5 [facility] Comment on above: Performed By: #### C BC #### [facility] [address] [place] [address] Dr. Kerrie Russell LYMPH # 2.2 103/ul Normal 1.2-3.8 [facility] Comment on above: Performed By: #### C BC #### [facility] [address] [place] [address] Dr. Kerrie Russell Lymphocytes/100 WBC (Bld) 26.5 % Normal 20.5-60.0 [facility] Comment on above: Performed By: #### C BC #### [facility] [address] [place] [address] Dr. Kerrie Russell MANUAL DIFF REQ NO Normal [facility] Comment on above: Performed By: #### C BC #### [facility] [address] [place] [address] Dr. Kerrie Russell MCH (RBC) [Entitic mass] 21.7 pg Critically low 26.7-34.0 [facility] Comment on above: Performed By: #### C BC #### [facility] [address] [place] [address] Dr. Kerrie Russell MCHC (RBC) [Mass/Vol] 30.2 g/dL Normal 29.9-35.2 [facility] Comment on above: Performed By: #### C BC #### [facility] [address] [place] [address] Dr. Kerrie Russell MCV (RBC) [Entitic vol] 72.0 fL Critically low 81.0-99.0 [facility] Comment on above: Performed By: #### C BC #### [facility] [address] [place] [address] Dr. Kerrie Russell MONO # 0.7 103/ul Normal 0.3-0.8 [facility] Comment on above: Performed By: #### C BC #### [facility] [address] [place] [address] Dr. Kerrie Russell Monocytes/100 WBC (Bld) 9.1 % Normal 1.7-12.0 [facility] Comment on above: Performed By: #### C BC #### [facility] [address] [place] [address] Dr. Kerrie Russell NEUT # 5.1 103/ul Normal 1.4-6.5 [facility] Comment on above: Performed By: #### C BC #### [facility] [address] [place] [address] Dr. Kerrie Russell Neutrophils/100 WBC (Bld) 63.3 % Normal 43.0-75.0 [facility] Comment on above: Performed By: #### C BC #### [facility] [address] [place] [address] Dr. Kerrie Russell Platelet mean volume (Bld) [Entitic vol] 10.1 fL Normal 9.5-13.5 [facility] Comment on above: Performed By: #### C BC #### [facility] [address] [place] [address] Dr. Kerrie Russell PLT 181 103/ul Normal 150-450 [facility] Comment on above: Performed By: #### C BC #### [facility] [address] [place] [address] Dr. Kerrie Russell RBC 3.50 106/ul Critically low 4.20-5.40 [facility] Comment on above: Performed By: #### C BC #### [facility] [address] [place] [address] Dr. Kerrie Russell WBC 8.1 103/ul Normal 4.0-11.0 [facility] Comment on above: Performed By: #### C BC #### [facility] [address] [place] [address] Dr. Kerrie Russell CBC AUTO DIFFon 05-11-2021 BASO # 0.0 103/ul Normal 0.0-0.1 [facility] Comment on above: Performed By: #### C VDTBH #### [facility] [address] [place] [address] Dr. Kerrie Russell Basophils/100 WBC (Bld) 0.4 % Normal 0.2-2.0 [facility] Comment on above: Performed By: #### C VDTBH #### [facility] [address] [place] [address] Dr. Kerrie Russell EO # 0.0 103/ul Normal 0.0-0.7 [facility] Comment on above: Performed By: #### C VDTBH #### [facility] [address] [place] [address] Dr. Kerrie Russell Eosinophils/100 WBC (Bld) 0.3 % Critically low 0.9-7.0 [facility] Comment on above: Performed By: #### C VDTBH #### [facility] [address] [place] [address] Dr. Kerrie Russell Erythrocyte distribution width (RBC) [Ratio] 14.8 % Normal 11.0-15.0 [facility] Comment on above: Performed By: #### C VDTBH #### [facility] [address] [place] [address] Dr. Kerrie Russell Hematocrit (Bld) [Volume fraction] 31.2 % Critically low 36.0-48.0 [facility] Comment on above: Performed By: #### C VDTBH #### [facility] [address] [place] [address] Dr. Kerrie Russell Hemoglobin (Bld) [Mass/Vol] 9.6 g/dL Critically low 12.0-16.0 [facility] Comment on above: Performed By: #### C VDTBH #### [facility] [address] [place] [address] Dr. Kerrie Russell IG # 0.07 10e3/ul Critically high 0.00-0.03 [facility] Comment on above: Performed By: #### C VDTBH #### [facility] [address] [place] [address] Dr. Kerrie Russell IG % 1.0 % Critically high 0.0-0.5 [facility] Comment on above: Performed By: #### C VDTBH #### [facility] [address] [place] [address] Dr. Kerrie Russell LYMPH # 1.5 103/ul Normal 1.2-3.8 [facility] Comment on above: Performed By: #### C VDTBH #### [facility] [address] [place] [address] Dr. Kerrie Russell Lymphocytes/100 WBC (Bld) 21.7 % Normal 20.5-60.0 [facility] Comment on above: Performed By: #### C VDTBH #### [facility] [address] [place] [address] Dr. Kerrie Russell MANUAL DIFF REQ NO Normal [facility] Comment on above: Performed By: #### C VDTBH #### [facility] [address] [place] [address] Dr. Kerrie Russell MCH (RBC) [Entitic mass] 21.8 pg Critically low 26.7-34.0 [facility] Comment on above: Performed By: #### C VDTBH #### [facility] [address] [place] [address] Dr. Kerrie Russell MCHC (RBC) [Mass/Vol] 30.8 g/dL Normal 29.9-35.2 [facility] Comment on above: Performed By: #### C VDTBH #### [facility] [address] [place] [address] Dr. Kerrie Russell MCV (RBC) [Entitic vol] 70.7 fL Critically low 81.0-99.0 [facility] Comment on above: Performed By: #### C VDTBH #### [facility] [address] [place] [address] Dr. Kerrie Russell MONO # 0.7 103/ul Normal 0.3-0.8 [facility] Comment on above: Performed By: #### C VDTBH #### [facility] [address] [place] [address] Dr. Kerrie Russell Monocytes/100 WBC (Bld) 9.7 % Normal 1.7-12.0 [facility] Comment on above: Performed By: #### C VDTBH #### [facility] [address] [place] [address] Dr. Kerrie Russell NEUT # 4.7 103/ul Normal 1.4-6.5 [facility] Comment on above: Performed By: #### C VDTBH #### [facility] [address] [place] [address] Dr. Kerrie Russell Neutrophils/100 WBC (Bld) 66.9 % Normal 43.0-75.0 [facility] Comment on above: Performed By: #### C VDTBH #### [facility] [address] [place] [address] Dr. Kerrie Russell Platelet mean volume (Bld) [Entitic vol] 10.0 fL Normal 9.5-13.5 [facility] Comment on above: Performed By: #### C VDTBH #### [facility] [address] [place] [address] Dr. eKrrie Russell PLT 272 103/ul Normal 150-450 [facility] Comment on above: Performed By: #### C VDTBH #### [facility] [address] [place] [address] Dr. Kerrie Russell RBC 4.41 106/ul Normal 4.20-5.40 [facility] Comment on above: Performed By: #### C VDTBH #### [facility] [address] [address] [address] Kerrie Rsusell WBC 7.0 103/ul Normal 4.0-11.0 [facility] Comment on above: Performed By: #### C VDTBH #### [facility] [address] [place] [address] Dr. Kerrie Russell Covid-19 PCR ([facility])on 04-29 SARS-CoV-2 (COVID-19) RNA DEZ+probe Ql (Unsp spec) Detected Critically abnormal NOT DETECTED [facility] Comment on above: Result Comment: This test is not yet approved or cleared by the [place] FDA. When there are no FDA-approved or cleared tests available, and other criteria are met, FDA can make tests available under an emergency access mechanism called an Emergency Use Authorization (EUA). The EUA for this test is supported by the [employer] Operator of Health and Human Service's declaration that [...] used). Performed By: #### C VDTBH #### [facility] [address] [place] [address] Dr. Kerrie Russell DRUG SCREEN RAPID (URINE)on 05-11-2021 AMP Negative Normal NEGATIVE [facility] Comment on above: Performed By: #### C VDTBH #### [facility] [address] [place] [address] Dr. Kerrie Russell BAR Negative Normal NEGATIVE [facility] Comment on above: Performed By: #### C VDTBH #### [facility] [address] [place] [address] Dr. Kerrie Russell BUP Negative Normal NEGATIVE [facility] Comment on above: Performed By: #### C VDTBH #### [facility] [address] [place] [address] Dr. Kerrie Russell BZO Negative Normal NEGATIVE [facility] Comment on above: Performed By: #### C VDTBH #### [facility] [address] [place] [address] Dr. Kerrie Russell ESTRELLA Negative Normal NEGATIVE [facility] Comment on above: Performed By: #### C VDTBH #### [facility] [address] [place] [address] Dr. Kerrie Russell CUT-OFFS SEE BELOW Normal [facility] Comment on above: Result Comment: AMP (Amphetamine): 500ng/mL, BAR (Barbituates): 200 ng/mL, BZO (Benzodiazepines): 150 ng/mL, BUP (Buprenorphine): 10 ng/mL, ESTRELLA (Cocaine): 150 ng/mL, mAMP (Methamphetamine): 500 ng/mL, MTD (Methadone): 200 ng/mL, OPI (Opiates): 100 ng/mL, OXY (Oxycodone): 100 ng/mL, PCP (Phencyclidine): 25 ng/mL, PPX (Propoxyphene): 300 ng/mL, THC (Cannabinoids): 50 ng/mL, TCA (Trycyclic Antidepressants): 300 ng/mL Performed By: #### C VDTBH #### [facility] [address] [place] [address] Dr. Kerrie Russell DRUG CUT HEADER DRUG CLASS TEST SYSTEM CUT-OFF CONCENTRATIONS ARE FOLLOWS: Normal [facility] Comment on above: Performed By: #### C VDTBH #### [facility] [address] [place] [address] Dr. Kerrie Russell mAMP Negative Normal NEGATIVE [facility] Comment on above: Performed By: #### C VDTBH #### [facility] [address] [place] [address] Dr. Kerrie Russell MTD Negative Normal NEGATIVE [facility] Comment on above: Performed By: #### C VDTBH #### [facility] [address] [place] [address] Dr. Kerrie Russell OPI Negative Normal NEGATIVE [facility] Comment on above: Performed By: #### C VDTBH #### [facility] [address] [place] [address] Dr. Kerrie Russell OXY Negative Normal NEGATIVE [facility] Comment on above: Performed By: #### C VDTBH #### [facility] [address] [address] [address] Kerrie Russell PCP Negative Normal NEGATIVE [facility] Comment on above: Performed By: #### C VDTBH #### [facility] [address] [address] [address] Kerrie Russell PPX Negative Normal NEGATIVE [facility] Comment on above: Performed By: #### C VDTBH #### [facility] [address] [address] [address] Kerrie Russell TCA Negative Normal NEGATIVE [facility] Comment on above: Performed By: #### C VDTBH #### [facility] [address] [place] [address] Dr. Kerrie Russell THC Negative Normal NEGATIVE [facility] Comment on above: Performed By: #### C VDTBH #### [facility] [address] [place] [address] Dr. Kerrie Russell TYPE AND SCREENon 05-11-2021 TYPE AND SCREEN Negative Normal [facility] Comment on above: Performed By: #### P HOS, MG, CMP #### [facility] [address] [place] [address] Dr. Kerrie Russell Complete Blood Count Auto Di ffon 07-25-2020 Basophils (Bld) [#/Vol] 0.1 10*3/uL Normal 0.0-0.2 [facility] Comment on above: Result Comment: PERF ORMED BY: [facility] [address] [place] [address] PATHOLOGIST [employer]IAN TOLU MANUEL M.D. Performed By: #### F E PRO, [id number], CMP, MG, [id number], PHOS, CBC #### [facility] [address] [place] [address] [place] #### VITB1 #### [facility] , Basophils/100 WBC (Bld) 0.7 % Normal . [facility] Comment on above: Performed By: #### F E PRO, [id number], CMP, MG, [id number], PHOS, CBC #### [address] #### VITB1 #### [facility] , Eosinophils (Bld) [#/Vol] 0.1 10*3/uL Normal 0.0-0.45 [facility] Comment on above: Performed By: #### F E PRO, [id number], CMP, MG, [id number], PHOS, CBC #### [address] #### VITB1 #### [facility] , Eosinophils/100 WBC (Bld) 1.6 % Normal . [facility] Comment on above: Performed By: #### F E PRO, [id number], CMP, MG, [id number], PHOS, CBC #### [address] #### VITB1 #### [facility] , Erythrocyte distribution width (RBC) [Ratio] 13.0 % Normal 11.9-15.3 [facility] Comment on above: Performed By: #### F E PRO, [id number], CMP, MG, [id number], PHOS, CBC #### [address] #### VITB1 #### [facility] , Hematocrit (Bld) [Volume fraction] 38.3 % Normal 34.0-46.4 [facility] Comment on above: Performed By: #### F E PRO, [id number], CMP, MG, [id number], PHOS, CBC #### [place] [address] [place] #### VITB1 #### [facility] , Hemoglobin (Bld) [Mass/Vol] 12.9 g/dL Normal 11.8-15.4 [facility] Comment on above: Performed By: #### F E PRO, [id number], CMP, MG, [id number], PHOS, CBC #### [address] #### VITB1 #### [facility] , Lymphocytes (Bld) [#/Vol] 4.6 10*3/uL Normal 1.00-4.8 [facility] Comment on above: Performed By: #### F E PRO, [id number], CMP, MG, [id number], PHOS, CBC #### [address] #### VITB1 #### [facility] , Lymphocytes/100 WBC (Bld) 49.5 % Normal . [facility] Comment on above: Performed By: #### F E PRO, [id number], CMP, MG, [id number], PHOS, CBC #### [address] #### VITB1 #### [facility] , MCH (RBC) [Entitic mass] 28.6 pg Normal 24.7-34.3 [facility] Comment on above: Performed By: #### F E PRO, [id number], CMP, MG, [id number], PHOS, CBC #### [address] #### VITB1 #### [facility] , MCV (RBC) [Entitic vol] 84.5 fL Normal 80-100 [facility] Comment on above: Performed By: #### F E PRO, [id number], CMP, MG, [id number], PHOS, CBC #### [facility] [address] [place] [address] [place] #### VITB1 #### [facility] , Mean Corpuscular HGB Conc 33.8 g/dL Normal 32.0-35.0 [facility] Comment on above: Performed By: #### F E PRO, [id number], CMP, MG, [id number], PHOS, CBC #### [address] #### VITB1 #### [facility] , Monocytes (Bld) [#/Vol] 0.7 10*3/uL Normal 0.0-0.8 [facility] Comment on above: Performed By: #### F E PRO, [id number], CMP, MG, [id number], PHOS, CBC #### [address] #### VITB1 #### [facility] , Monocytes/100 WBC (Bld) 7.5 % Normal . [facility] Comment on above: Performed By: #### F E PRO, [id number], CMP, MG, [id number], PHOS, CBC #### [address] #### VITB1 #### [facility] , Neutrophils (Bld) [#/Vol] 3.8 10*3/uL Normal 1.8-7.7 [facility] Comment on above: Performed By: #### F E PRO, [id number], CMP, MG, [id number], PHOS, CBC #### [address] #### VITB1 #### [facility] , Neutrophils/100 WBC (Bld) 40.7 % Normal . [facility] Comment on above: Performed By: #### F E PRO, [id number], CMP, MG, [id number], PHOS, CBC #### [place] [address] [place] #### VITB1 #### [facility] , Nucleated RBC/100 WBC (Bld) [Ratio] 0.4 % Normal 0-0.5 [facility] Comment on above: Performed By: #### F E PRO, [id number], CMP, MG, [id number], PHOS, CBC #### [facility] [address] [place] [address] #### VITB1 #### [facility] , Platelet mean volume (Bld) [Entitic vol] 7.8 fL Normal 6.3-10.7 [facility] Comment on above: Performed By: #### F E PRO, [id number], CMP, MG, [id number], PHOS, CBC #### [address] #### VITB1 #### [facility] , Platelets (Bld) [#/Vol] 354 10*3/uL Normal 150-450 [facility] Comment on above: Performed By: #### F E PRO, [id number], CMP, MG, [id number], PHOS, CBC #### [address] #### VITB1 #### [facility] , RBC (Bld) [#/Vol] 4.53 10*6/uL Normal 3.60-5.00 [facility] Comment on above: Performed By: #### F E PRO, [id number], CMP, MG, [id number], PHOS, CBC #### [address] #### VITB1 #### [facility] , WBC (Bld) [#/Vol] 9.3 10*3/uL Normal 4.5-11.0 [facility] Comment on above: Performed By: #### F E PRO, [id number], CMP, MG, [id number], PHOS, CBC #### [facility] [address] [place] [address] [place] #### VITB1 #### [facility] , Comprehensive Metabolic Pane celestino 07-25-2020 Albumin [Mass/Vol] 4.0 g/dL Normal 3.2-5.5 [facility] Comment on above: Performed By: #### F E PRO, [id number], CMP, MG, [id number], PHOS, CBC #### [facility] [address] [place] [address] #### VITB1 #### [facility] , Albumin/Globulin [Mass ratio] 1.4 {ratio} Normal [facility] Comment on above: Performed By: #### F E PRO, [id number], CMP, MG, [id number], PHOS, CBC #### [facility] [address] [place] [address] #### VITB1 #### [facility] , ALP [Catalytic activity/Vol] 58 U/L Normal 32-92 [facility] Comment on above: Performed By: #### F E PRO, [id number], CMP, MG, [id number], PHOS, CBC #### [facility] [address] [place] [address] #### VITB1 #### [facility] , ALT [Catalytic activity/Vol] 12 U/L Normal 10-60 [facility] Comment on above: Performed By: #### F E PRO, [id number], CMP, MG, [id number], PHOS, CBC #### [facility] [address] [place] [address] [place] #### VITB1 #### [facility] , AST [Catalytic activity/Vol] 19 U/L Normal 10-42 [facility] Comment on above: Performed By: #### F E PRO, [id number], CMP, MG, [id number], PHOS, CBC #### [facility] [address] [place] [address] [place] #### VITB1 #### [facility] , Bilirubin [Mass/Vol] 0.5 mg/dL Normal 0.3-1.2 [facility] Comment on above: Performed By: #### F E PRO, [id number], CMP, MG, [id number], PHOS, CBC #### [facility] [address] [place] [address] #### VITB1 #### [facility] , Calcium [Mass/Vol] 9.0 mg/dL Normal 8.2-10.2 [facility] Comment on above: Performed By: #### F E PRO, [id number], CMP, MG, [id number], PHOS, CBC #### [facility] [address] [place] [address] #### VITB1 #### [facility] , Chloride [Moles/Vol] 100 mmol/L Normal 95-114 [facility] Comment on above: Performed By: #### F E PRO, [id number], CMP, MG, [id number], PHOS, CBC #### [facility] [address] [place] [address] #### VITB1 #### [facility] , CO2 [Moles/Vol] 27.3 mmol/L Normal 22.0-30.0 [facility] Comment on above: Performed By: #### F E PRO, [id number], CMP, MG, [id number], PHOS, CBC #### [facility] [address] [place] [address] #### VITB1 #### [facility] , Creatinine [Mass/Vol] 0.59 mg/dL Normal 0.44-1.03 [facility] Comment on above: Performed By: #### F E PRO, [id number], CMP, MG, [id number], PHOS, CBC #### [facility] [address] [place] [address] #### VITB1 #### [facility] , Estimated GFR ( Monica > 60 Normal [facility] Comment on above: Result Comment: GFR estimated reference range: According to KDOQI guidelines, <60 ml/min/1.73m2 is sufficient to diagnose a patient with chronic kidney disease. Performed By: #### F E PRO, [id number], CMP, MG, [id number], PHOS, CBC #### [place] [address] [place] #### VITB1 #### [facility] , Estimated GFR (Non- Am > 60 Normal [facility] Comment on above: Performed By: #### F E PRO, [id number], CMP, MG, [id number], PHOS, CBC #### [place] [address] [place] #### VITB1 #### [facility] , Globulin (S) [Mass/Vol] 2.8 g/dL Normal [facility] Comment on above: Performed By: #### F E PRO, [id number], CMP, MG, [id number], PHOS, CBC #### [place] [address] [place] #### VITB1 #### [facility] , Glucose [Mass/Vol] 118 mg/dL High 70-100 [facility] Comment on above: Result Comment: [place] Glucose Reference Range is dependent on time and content of last meal. Glucose of more than 200 mg/dL in a nonstressed, ambulatory subject supports the diagnosis of Diabetes Mellitus. ADA recommended reference range Performed By: #### F E PRO, [id number], CMP, MG, [id number], PHOS, CBC #### [place] [address] [place] #### VITB1 #### [facility] , Potassium [Moles/Vol] 3.6 mmol/L Normal 3.5-5.1 [facility] Comment on above: Performed By: #### F E PRO, [id number], CMP, MG, [id number], PHOS, CBC #### [place] [address] [place] #### VITB1 #### [facility] , Protein [Mass/Vol] 6.8 g/dL Normal 6.1-7.9 [facility] Comment on above: Performed By: #### F E PRO, [id number], CMP, MG, [id number], PHOS, CBC #### [facility] [address] [place] [address] [place] #### VITB1 #### [facility] , Sodium [Moles/Vol] 136 mmol/L Normal 136-146 [facility] Comment on above: Performed By: #### F E PRO, [id number], CMP, MG, [id number], PHOS, CBC #### [facility] [address] [place] [address] #### VITB1 #### [facility] , Urea nitrogen [Mass/Vol] 10 mg/dL Normal 9-23 [facility] Comment on above: Performed By: #### F E PRO, [id number], CMP, MG, [id number], PHOS, CBC #### [facility] [address] [place] [address] [place] #### VITB1 #### [facility] , FE PROon 07-25-2020 % Iron Saturation 15.0 % Low 20-50 [facility] Comment on above: Performed By: #### F E PRO, [id number], CMP, MG, [id number], PHOS, CBC #### [facility] [address] [place] [address] [place] #### VITB1 #### [facility] , Ferritin [Mass/Vol] 8.8 ng/mL Low 11-306.8 [facility] Comment on above: Performed By: #### F E PRO, [id number], CMP, MG, [id number], PHOS, CBC #### [facility] [address] [place] [address] [place] #### VITB1 #### [facility] , Iron [Mass/Vol] 68 ug/dL Normal 40-150 [facility] Comment on above: Performed By: #### F E PRO, [id number], CMP, MG, [id number], PHOS, CBC #### [facility] [address] [place] [address] #### VITB1 #### [facility] , Total Iron Binding Capacity 441 ug/dL Normal 255-450 [facility] Comment on above: Performed By: #### F E PRO, [id number], CMP, MG, [id number], PHOS, CBC #### [facility] [address] [place] [address] #### VITB1 #### [facility] , Transferrin [Mass/Vol] 315 mg/dL Normal 180-380 [facility] Comment on above: Performed By: #### F E PRO, [id number], CMP, MG, [id number], PHOS, CBC #### [facility] [address] [place] [address] #### VITB1 #### [facility] , Magnesiumon 07-25-2020 Magnesium [Mass/Vol] 1.9 mg/dL Normal 1.6-2.6 [facility] Comment on above: Performed By: #### F E PRO, [id number], CMP, MG, [id number], PHOS, CBC #### [facility] [address] [place] [address] #### VITB1 #### [facility] , Phosphoruson 07-25-2020 Phosphate [Mass/Vol] 3.8 mg/dL Normal 2.5-4.6 [facility] Comment on above: Performed By: #### F E PRO, [id number], CMP, MG, [id number], PHOS, CBC #### [facility] [address] [place] [address] [place] #### VITB1 #### [facility] , Vit. B12/Folate Profileon Cobalamin (Vitamin B12) [Mass/Vol] 613 pg/mL Normal 180-914 [facility] Comment on above: Performed By: #### F E PRO, [id number], CMP, MG, [id number], PHOS, CBC #### [facility] [address] [place] [address] #### VITB1 #### [facility] , Folate 21.8 ng/mL Normal >5.9 [facility] Comment on above: Result Comment: Hiral te reference range: >5.9 ng/ml The WHO technical consultation on folate and vitamin b12 deficiencies has determined that folate concentrations less than 4 ng/ml are considered deficient. Performed By: #### F E PRO, [id number], CMP, MG, [id number], PHOS, CBC #### [facility] [address] [place] [address] #### VITB1 #### [facility] , Vitamin B1 (Thiamine) Bloodo n 07-25-2020 Vitamin B1 (Thiamine) Blood 120.7 Normal 66.5-200.0 [facility] Comment on above: Order Comment: Speci men Comment: Test(s) 637522-Tfi. B1, Whole Blood Specimen Comment: was developed and its performance characteristics Specimen Comment: determined by [facility]. It has not been cleared or approved Specimen Comment: by the Food and Drug Administration. Result Comment: Perf ormed at: - [facility] [address] [id number] Timber Framer: Jaren Bishop MD, Phone: [phone] PERFORMED BY: [place] [address] PATHOLOGIST PLANT CUSTODIAN TOLU MANUEL M.D. Performed By: #### F E PRO, [id number], CMP, MG, [id number], PHOS, CBC #### [facility] [address] [place] [address] #### VITB1 #### [facility] , Vitamin D 25 Hydroxy Totalon 07-25-2020 Vitamin D 25 Hydroxy Total 33.5 ng/mL Normal 30-100 [facility] Comment on above: Result Comment: LISANDRO MIN D STATUS 25(OH)VITAMIN D RANGE (ng/mL) Deficient <20 Insufficient 20 to <30 Sufficient 30 to 100 Reference: Sejal MF,Shraddha NC, Filiberto GREENBERG, et al. Evaluation,treatment, and prevention of vitamin D deficiency; an Endocrine Society clinical practice guideline. JCEM. 2010; 96(7):1911-30. PERFORMED BY: [place] [address] PATHOLOGIST [employer] CUSTODIAN TOLU MANUEL M.D. Performed By: #### F E PRO, [id number], CMP, MG, [id number], PHOS, CBC #### [address] #### VITB1 #### [facility] , COVID-19 [...] its performance Sharda Disclaimer characteristic determined by [employer] and Sharda Disclaimer validated at [facility]. This Sharda Disclaimer test has not been [...] Emergency Use Authorization for Coronavirus Sharda Disclaimer is during the Public Health Emergency) Sharda Disclaimer [...] is terminated or revoked sooner. PERFORMED BY: [facility] [place] [address] PATHOLOGIST [employer]UST[employer]IAN TOLU MANUEL M.D. Normal [facility] Comment on above: Performed By: #### C OVID-19 SHARDA, SOFIANEG #### [facility] [address] [place] [address] Sharda Ag Negativeon 07-21-19 21 Sharda Ag Negative Negative Normal Negative [facility] Comment on above: Result Comment: This is a duplicate Sharda SARS Antigen (SIERRA) result to be used for statistical tracking purpose only. PERFORMED BY: [place] [address] PATHOLOGIST [employer] CUSTODIAN TOLU MANUEL M.D. Performed By: #### C OVID-19 SHARDA, SOFIANEG #### [facility] [address] [place] [address] Vitamin B1 (Thiamine) Whl Bl ood LCon 10-05-2018 Vit B1 Whl Bld LC 154.0 nmol/L 66.5-200.0 [facility] Comment on above: Result Comment: This test was developed and its performance characteristics determined by [facility]. It has not been cleared or approved by the Food and Drug Administration. 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 ADMIT DX: [...] Martinez Date Saved: 10/02/2018 03:39 pm Normal [facility] .Auto Diff 1on 10-01-2018 Auto Baso % 0.3 % Normal 0.2-2.0 [facility] Comment on above: Performed By: #### 9 308741, 07341567, 4453254, 1397607228, 9474223, 903272355, 4147623, 1304420, 4820906, 9553980 #### [facility] (DEFAULT) [address] [place] [address] Auto Kane % 6 % Normal 1-12 [facility] Comment on above: Performed By: #### 9 421675, 70174522, 0033638, 1622305603, 3786463, 920639779, 7677115, 7398474, 6605993, 7858285 #### [facility] (DEFAULT) [address] [place] [address] Auto Neut % 60 % Normal 44-88 [facility] Comment on above: Performed By: #### 9 636177, 83376598, 0862686, 6347972517, 0795597, 551612554, 4229274, 8831963, 8715838, 6439232 #### [facility] (DEFAULT) [address] [place] [address] Baso Abs# 0.0 x10 Normal 0.0-0.2 [facility] Comment on above: Performed By: #### 9 295792, 93004033, 4727606, 2723272135, 9854952, 848022993, 7445147, 5246511, 7954892, 2923988 #### [facility] (DEFAULT) [address] [place] [address] Eos Abs# 0.1 x10 Normal 0.0-0.4 [facility] Comment on above: Performed By: #### 9 652388, 39993942, 3642683, 3556124864, 2900213, 586373883, 2581553, 0336016, 8887875, 8367112 #### [facility] (DEFAULT) [address] [place] [address] Eosinophils/100 WBC (Bld) 0.9 % Normal 0.9-4.0 [facility] Comment on above: Performed By: #### 9 155160, 40100288, 0323873, 7343162442, 9682942, 718221787, 0222115, 1741749, 8131683, 2091285 #### [facility] (DEFAULT) [address] [place] [address] Lymphocytes #/vol (Bld) 3.4 x10 High 1.3-2.9 [facility] Comment on above: Performed By: #### 9 797849, 19695499, 4186947, 4813566201, 7237578, 360384806, 0383061, 4432415, 3048123, 6796799 #### [facility] (DEFAULT) [address] [place] [address] Lymphocytes/100 WBC (Bld) 33 % Normal 14-48 [facility] Comment on above: Performed By: #### 9 006777, 29570244, 4423581, 1361021260, 6653044, 462547663, 7315723, 1025097, 0720010, 2681848 #### [facility] (DEFAULT) [address] [place] [address] Kane Abs# 0.6 x10 Normal 0.0-0.8 [facility] Comment on above: Performed By: #### 9 281170, 87658449, 6322203, 4513489555, 0809891, 996270636, 5505183, 6064848, 1976553, 7252947 #### [facility] (DEFAULT) [address] [place] [address] Neut Abs# 6.2 x10 Normal 1.5-9.2 [facility] Comment on above: Performed By: #### 9 325013, 82254242, 9654740, 0721427637, 4034688, 006147492, 4595288, 0496485, 4234033, 7193301 #### [facility] (DEFAULT) [address] [place] [address] CBC w/ Auto Diffon 9 Erythrocyte distribution width Ratio (RBC) 14.6 % Normal 11.5-15.0 [facility] Comment on above: Performed By: #### 9 702466, 63704341, 1756770, 6496214942, 3161795, 959287160, 8079376, 9231770, 8855758, 9736028 #### [facility] (DEFAULT) [address] [place] [address] Hematocrit Volume Fraction (Bld) 41.2 % High 33.7-40.4 [facility] Comment on above: Performed By: #### 9 584256, 42035423, 9819777, 0267585907, 6319695, 841297725, 2273169, 3581417, 5321147, 2804370 #### [facility] (DEFAULT) [address] [place] [address] Hemoglobin mass conc (Bld) 13.7 g/dL Normal 11.3-15.9 [facility] Comment on above: Performed By: #### 9 133231, 63866757, 7339889, 5214932432, 3734962, 303841811, 5431363, 2988971, 6796367, 6245952 #### [facility] (DEFAULT) [address] [place] [address] Man Diff? Auto Normal [facility] Comment on above: Performed By: #### 9 113936, 24977489, 4764674, 0685477189, 9254150, 705072882, 6120880, 7092992, 1477315, 5945414 #### [facility] (DEFAULT) [address] [place] [address] MCH Entitic mass (RBC) 28 pg Normal 24-34 [facility] Comment on above: Performed By: #### 9 066285, 80421834, 2912933, 2180515416, 1558526, 544024517, 0621514, 6014737, 7903639, 9334303 #### [facility] (DEFAULT) [address] [place] [address] MCHC mass conc (RBC) 33 g/dL Normal 26-37 [facility] Comment on above: Performed By: #### 9 263146, 25364322, 5443178, 6247278893, 0456474, 161796400, 5767617, 8616915, 7398517, 7111018 #### [facility] (DEFAULT) [address] [place] [address] MCV Entitic volume (RBC) 85 fL Normal 81-100 [facility] Comment on above: Performed By: #### 9 791305, 31760961, 8756719, 2929383793, 8412959, 410573504, 0185864, 8745746, 6910064, 8341408 #### [facility] (DEFAULT) [address] [place] [address] Platelet mean volume Entitic volume (Bld) 9.8 fL Normal 6.3-10.2 [facility] Comment on above: Performed By: #### 9 216881, 46959506, 4426471, 9885485805, 5429821, 187121671, 1555668, 6191568, 0480817, 9492136 #### [facility] (DEFAULT) [address] [place] [address] Platelets #/vol (Bld) 378 x10 Normal 138-427 [facility] Comment on above: Performed By: #### 9 940716, 79928580, 0453418, 1404532678, 8683330, 158988785, 2719071, 9307797, 2202908, 0040710 #### [facility] (DEFAULT) [address] [place] [address] RBC #/vol (Bld) 4.84 x10 Normal 3.70-5.30 [facility] Comment on above: Performed By: #### 9 836579, 35983178, 0032458, 0617854668, 3252196, 974073696, 6574693, 0819770, 0455046, 0759914 #### [facility] (DEFAULT) [address] [place] [address] WBC #/vol (Bld) 10.4 x10 Normal 3.5-10.5 [facility] Comment on above: Performed By: #### 9 003924, 63329984, 3454409, 1262456540, 8097029, 425818176, 8914289, 4029134, 9126768, 0490307 #### [facility] (DEFAULT) [address] [place] [address] CMP Standardon 10-01-2018 eGFR Non AA >60 [facility] Comment on above: Performed By: #### 9 180969, 70698931, 2666858, 4791221213, 0693562, 439111308, 6570557, 9130847, 5860625, 0725120 #### [facility] (DEFAULT) [address] [place] [address] eGFR AA >60 [facility] Comment on above: Result Comment: Label Cutter richard Kidney disease could be indicated at eGFRs of less than 60 ml/min/1.73m2. Kidney Failure is indicated at less than 15 ml/min/1.73m2 Performed By: #### 9 419930, 44710174, 1884444, 7232520080, 6475276, 483446113, 0013589, 2375062, 3027727, 4509438 #### [facility] (DEFAULT) [address] [place] [address] Albumin mass conc 4.1 g/dL Normal 3.5-5.0 [facility] Comment on above: Performed By: #### 9 583052, 22013926, 5088974, 8873383200, 2330674, 762883475, 9832326, 1834561, 5600999, 6394920 #### [facility] (DEFAULT) [address] [place] [address] Albumin/Globulin mass ratio 1.2 {ratio} Low 1.4-2.6 [facility] Comment on above: Performed By: #### 9 198918, 86727447, 0206102, 7035053726, 1761014, 771895287, 1758245, 9241130, 9577710, 8178703 #### [facility] (DEFAULT) [address] [place] [address] Alk Phos 57 IU/L Normal 32-91 [facility] Comment on above: Performed By: #### 9 806374, 39106681, 6580358, 7227405667, 7793897, 641961695, 7507682, 0777606, 1686874, 2594625 #### [facility] (DEFAULT) [address] [place] [address] ALT/SGPT 68.0 IU/L High 14.0-54.0 [facility] Comment on above: Performed By: #### 9 327016, 01523509, 0189126, 1474939747, 8428030, 699275401, 0448436, 0245775, 6606054, 7208098 #### [facility] (DEFAULT) [address] [place] [address] Anion gap molar conc 15.0 mmol/L Normal 5.0-19.0 [facility] Comment on above: Performed By: #### 9 731629, 79243923, 7936433, 3567331394, 9123254, 964415449, 4587636, 0385013, 7575277, 8219514 #### [facility] (DEFAULT) [address] [place] [address] AST/SGOT 40 IU/L Normal 15-41 [facility] Comment on above: Performed By: #### 9 452502, 03203234, 8501481, 5420812250, 1314833, 129467454, 0552942, 6511168, 0795823, 0245545 #### [facility] (DEFAULT) [address] [place] [address] Bili Total 0.2 mg/dL Low 0.3-1.2 [facility] Comment on above: Performed By: #### 9 312262, 57754159, 2900022, 6233794563, 5613880, 762482031, 2360423, 7452953, 2853699, 4379700 #### [facility] (DEFAULT) [address] [place] [address] Calcium mass conc 9.1 mg/dL Normal 8.9-10.3 [facility] Comment on above: Performed By: #### 9 127944, 26738100, 4594064, [id number], 5737571, [id number], 8465819, 1543254, 9546859, 8293107 #### [facility] (DEFAULT) [address] [place] [address] Chloride molar conc 103 mmol/L Normal 101-111 [facility] Comment on above: Performed By: #### 9 [id number], [id number], [id number], [id number], [id number], [id number], 0021385, 6896349, 0721369, [id number] #### [facility] (DEFAULT) [address] [place] [address] CO2 molar conc 24 mmol/L Normal 21-32 [facility] Comment on above: Performed By: #### 9 [id number], [id number], 2992926, [id number], 7062782, [id number], 4712139, 7708498, 9056163, [id number] #### [facility] (DEFAULT) [address] [place] [address] Creatinine mass conc 0.71 mg/dL Normal 0.60-1.30 [facility] Comment on above: Performed By: #### 9 [id number], [id number], 5744934, [id number], 2169475, [id number], 5765537, 9482018, 2271390, 1028035 #### [facility] (DEFAULT) [address] [place] [address] Globulin mass conc (S) 3.3 g/dL Normal 1.5-4.3 [facility] Comment on above: Performed By: #### 9 [id number], [id number], 4242115, [id number], 0623796, [id number], 4504463, 6166488, 5860655, 8606713 #### [facility] (DEFAULT) [address] [place] [address] Glucose mass conc 94.0 mg/dL Normal 74.0-118.0 [facility] Comment on above: Performed By: #### 9 [id number], [id number], 9290840, [id number], 1355108, 446884254, 6564086, 2675635, 9333011, 2330636 #### [facility] (DEFAULT) [address] [place] [address] Osmolality 274 mOsm/L [facility] Comment on above: Performed By: #### 9 613037, 27988401, 4989374, [id number], 5551095, 439140667, 1638185, 9666426, 8795373, 9060540 #### [facility] (DEFAULT) [address] [place] [address] Potassium molar conc 3.8 mmol/L Normal 3.6-5.1 [facility] Comment on above: Performed By: #### 9 192900, 21391419, 2506757, [id number], 9949955, 255176208, 5089968, 6106110, 0334364, 9801474 #### [facility] (DEFAULT) [address] [place] [address] Protein mass conc 7.4 g/dL Normal 6.5-8.1 [facility] Comment on above: Performed By: #### 9 936059, 87720627, 0060876, [id number], 2600613, 276455844, 3062189, 3592581, 4165314, 1020841 #### [facility] (DEFAULT) [address] [place] [address] Sodium molar conc 138.0 mmol/L Normal 136.0-144.0 [facility] Comment on above: Performed By: #### 9 571110, 25660741, 4523819, 1729798614, 4873090, 012279455, 4907360, 5050563, 0436501, 8892744 #### [facility] (DEFAULT) [address] [place] [address] Urea nitrogen mass conc 10 mg/dL Normal 8-26 [facility] Comment on above: Performed By: #### 9 672977, 35955687, 9464111, [id number], 1991407, 787551819, 1661636, 6540848, 0090612, 2283733 #### [facility] (DEFAULT) [address] [place] [address] Urea nitrogen/Creatinine mass ratio 14.0 mg/mg Normal 4.6-16.2 [facility] Comment on above: Performed By: #### 9 373791, 74926417, 6054272, [id number], 8253568, 901532374, 8853407, 5806007, 8902751, 1353909 #### [facility] (DEFAULT) [address] [place] [address] Folateon 10-01-2018 Folic Acid Level 13.29 ng/mL Normal 5.90-24.80 [facility] Comment on above: Result Comment: Norm al folate results > 3.0 ng/mL. Performed By: #### 9 468883, 85872580, 4254665, 5801234092, 9769307, 085303809, 2817119, 6570557, 1081077, 9317370 #### [facility] (DEFAULT) [address] [place] [address] Iron Levelon 10-01-2018 Iron mass conc 53.0 ug/dL Normal 28.0-170.0 [facility] Comment on above: Performed By: #### 9 218934, 91688683, 8188548, [id number], 4526100, 053687283, 8038408, 2503050, 0623470, 1386167 #### [facility] (DEFAULT) [address] [place] [address] Magnesiumon 10-01-2018 Magnesium mass conc 2.01 mg/dL Normal 1.80-2.50 [facility] Comment on above: Result Comment: The reference range for magnesium has changed from 0.40-2.10 mg/dl to 1.80-2.50 mg/dl as of 08/15/15. Performed By: #### 9 983221, 95884581, 4840552, [id number], 9437676, 398796835, 2742384, 8332187, 5636357, 3816289 #### [facility] (DEFAULT) [address] [place] [address] Phoson 10-01-2018 Phosphate mass conc 3.1 mg/dL Normal 2.5-4.6 [facility] Comment on above: Performed By: #### 9 457335, 85769438, 3221048, [id number], 1202199, 476097996, 2304479, 5669396, 1938762, 6882997 #### [facility] (DEFAULT) [address] [place] [address] Vit B12 Lvlon 10-01-2018 Cobalamin (Vitamin B12) mass conc 1488 pg/mL High 180-914 [facility] Comment on above: Performed By: #### 9 953662, 44045514, 9632903, [id number], 1588152, 629494426, 9980979, 0763976, 3891698, 0260562 #### [facility] (DEFAULT) [address] [place] [address] Vit D25 OHon 10-01-2018 Vitamin D 25 OH 41 ng/mL [facility] Comment on above: Result Comment: In , the Clinical Guidelines Subcommittee of the [...] Upper Safety Limit >100 >250 Reference Sejal MF et al. Evaluation, Treatment, and Prevention of Vitamin D Deficiency: An Endocrine Society Clinical Practice Guideline, J Clin Endocrinol Metab 2011; 96 (7): 2505-8686. Performed By: #### 9 619458, 10946767, 5763214, [id number], 5258671, 689988087, 6890353, 2615489, 5223941, 0516077 #### [facility] (DEFAULT) [address] [place] [address] Vital Signs Date Time Vital Sign Value Performing Clinician Facility 10-07-2024 14:10-0400 Body mass index (BMI) [Ratio] 33.78 kg/m2 Douglas Debbie DO Work Phone: [facility] 10-07-2024 14:10-0400 Body weight 81.1 kg Douglas Debbie DO Work Phone: [facility] 10-07-2024 14:10-0400 Diastolic blood pressure 68 mm[Hg] Douglas Debbie DO Work Phone: [facility] 10-07-2024 14:10-0400 Systolic blood pressure 114 mm[Hg] Douglas Debbie DO Work Phone: [facility] 09-23-2024 11:46-0400 Body mass index (BMI) [Ratio] 33.09 kg/m2 Douglas Debbie DO Work Phone: [facility] 09-23-2024 11:46-0400 Body weight 79.43 kg Douglas Debbie DO Work Phone: [facility] 09-23-2024 11:46-0400 Diastolic blood pressure 74 mm[Hg] Douglas Debbie DO Work Phone: [facility] 09-23-2024 11:46-0400 Systolic blood pressure 110 mm[Hg] Douglas Debbie DO Work Phone: [facility] 09-08-2024 09:43-0400 Body mass index (BMI) [Ratio] 32.88 kg/m2 Douglas Debbie DO Work Phone: [facility] 09-08-2024 09:43-0400 Body weight 78.93 kg Douglas Debbie DO Work Phone: [facility] 09-08-2024 09:43-0400 Diastolic blood pressure 70 mm[Hg] Douglas Debbie DO Work Phone: [facility] 09-08-2024 09:43-0400 Systolic blood pressure 112 mm[Hg] Douglas Debbie DO Work Phone: [facility] 08-13-2024 09:32-0400 Body mass index (BMI) [Ratio] 32.08 kg/m2 Douglas Debbie DO Work Phone: [facility] 08-13-2024 09:32-0400 Body weight 77.02 kg Douglas Debbie DO Work Phone: [facility] 08-13-2024 09:32-0400 Diastolic blood pressure 76 mm[Hg] Douglas Debbie DO Work Phone: [facility] 08-13-2024 09:32-0400 Systolic blood pressure 116 mm[Hg] Douglas Debbie DO Work Phone: [facility] 07-16-2024 09:08-0400 Body mass index (BMI) [Ratio] 30.42 kg/m2 Douglas Debbie DO Work Phone: [facility] 07-16-2024 09:08-0400 Body weight 73.03 kg Douglas Debbie DO Work Phone: [facility] 07-16-2024 09:08-0400 Diastolic blood pressure 82 mm[Hg] Douglas Debbie DO Work Phone: [facility] 07-16-2024 09:08-0400 Systolic blood pressure 118 mm[Hg] Douglas Debbie DO Work Phone: [facility] 06-17-2024 08:57-0500 Body mass index (BMI) [Ratio] 30.42 kg/m2 Maddie WRIGHT Work Phone: [facility] 06-17-2024 08:57-0500 Body weight 73.03 kg Maddie WRIGHT Work Phone: [facility] 06-17-2024 08:57-0500 Diastolic blood pressure 72 mm[Hg] Maddie WRIGHT Work Phone: [facility] 06-17-2024 08:57-0500 Systolic blood pressure 112 mm[Hg] Maddie WRIGHT Work Phone: [facility] 05-20-2024 15:27-0500 Body mass index (BMI) [Ratio] 29.55 kg/m2 Douglas Debbie DO Work Phone: [facility] 05-20-2024 15:27-0500 Body weight 70.94 kg Douglas Debbie DO Work Phone: [facility] 05-20-2024 15:27-0500 Diastolic blood pressure 70 mm[Hg] Douglas Debbie DO Work Phone: [facility] 05-20-2024 15:27-0500 Systolic blood pressure 102 mm[Hg] Douglas Debbie DO Work Phone: [facility] 04-17-2024 11:01-0500 Body mass index (BMI) [Ratio] 28.72 kg/m2 Nom Nurse [facility] 04-17-2024 11:01-0500 Body weight 68.95 kg [facility] Nurse [facility] 04-17-2024 11:01-0500 Diastolic blood pressure 70 mm[Hg] [facility] Nurse [facility] 04-17-2024 11:01-0500 Systolic blood pressure 118 mm[Hg] Nom Nurse [facility] 01-09-2024 15:59-0400 Body height 154.9 cm Xena Mccallum MD Work Phone: [facility] 01-09-2024 15:59-0400 Body mass index (BMI) [Ratio] 29.25 kg/m2 Xena Mccallum MD Work Phone: [facility] 01-09-2024 15:59-0400 Body weight 70.22 kg Xena Mccallum MD Work Phone: [facility] 01-09-2024 15:59-0400 Diastolic blood pressure 70 mm[Hg] Xena Mccallum MD Work Phone: [facility] 01-09-2024 15:59-0400 Heart rate 82 /min Xena Mccallum MD Work Phone: [facility] 01-09-2024 15:59-0400 Respiratory rate 18 /min Xena Mccallum MD Work Phone: [facility] 01-09-2024 15:59-0400 SaO2% (BldA) [Mass fraction] 99 % Xena Mccallum MD Work Phone: [facility] 01-09-2024 15:59-0400 Systolic blood pressure 122 mm[Hg] Xena Mccallum MD Work Phone: [facility] 08-16-2021 10:22-0400 Blood Pressure Location Scotty LOGAN [facility] 08-16-2021 10:22-0400 Diastolic blood pressure 72 mm[Hg] Scotty LOGAN [facility] 08-16-2021 10:22-0400 Heart rate 84 /min Scotty LOGAN [facility] 08-16-2021 10:22-0400 Respiratory rate 16 /min Scotty LOGAN [facility] [employer] 08-16-2021 10:22-0400 Systolic blood pressure 104 mm[Hg] Scotty LOGAN [facility] Encounters Encounter Date Encounter Type Care Provider Facility Start: 10-07-2024 End: 10-07-2024 Clinisync Result Encounter Generic External Data Provider [facility] External Department Unsolicited Start: 10-07-2024 End: 10-07-2024 Clinisync Result Encounter Generic External Data Provider [facility] External Department Unsolicited Start: 10-07-2024 End: 10-07-2024 ambulatory DOUGLAS DEBBIE Not Available Start: 10-07-2024 End: 10-07-2024 Office outpatient visit 15 minutes Douglas Debbie DO Work Phone: [facility] Comment on above: Third trimester preg lian; 33 weeks gestation of Start: 09-23-2024 End: 09-23-2024 Bamboo flowsheet Douglas [...] flow sheet Douglas Debbie DO Work Phone: [facility] Comment on above: Second [...] Bamboo flowsheet Douglas Debbie DO Work Phone: [facility] Start: 07-16-2024 End: 07-16-2024 Bamboo flowsheet Douglas Debbie DO Work Phone: [facility] Start: 07-16-2024 End: 07-16-2024 flow sheet Douglas Debbie DO Work Phone: [facility] Comment on above: 22 weeks gestation o f ; Second trimester ; Diabetes mellitus screening; History of gastric bypass; Nonintractable headache, unspecified chronicity pattern, unspecified headache type Start: 07-16-2024 End: 07-16-2024 ambulatory DOUGLAS SZYMANSKIZIO Not Available Start: 07-09-2024 End: 07-09-2024 ambulatory MADDIE HARP Not Available Start: 06-17-2024 End: 06-17-2024 Bamboo flowsheet Maddie WRIGHT Work Phone: [facility] Start: 06-17-2024 End: 06-17-2024 Bamboo flowsheet Maddie WRIGHT Work Phone: [facility] Start: 06-17-2024 End: 06-17-2024 flow sheet Maddie WRIGHT Work Phone: [facility] Comment on above: Second [...] Phone: [facility] Comment on above: Intractable chronic migraine without aura and with status migrainosus (CMS/HCC); Anxiety; Neck pain; Cervicogenic headache Start: 11-05-2023 End: 11-05-2023 ambulatory DOUGLAS LEWIS Not Available Start: 07-24-2023 End: 07-25-2023 ambulatory Scotty LOGAN Facility:[facility] Start: 07-24-2023 End: 07-24-2023 Patient encounter procedure Scotty LOGAN [facility] Start: 05-09-2022 ambulatory CHERYL TOTH Facility:[facility] 1 Start: 04-09-2022 End: 04-10-[address] SCOTTY LOGAN Facility:[facility] Start: 02-28-2022 End: 03-01-2022 ambulatory CHERYL TOTH Facility:[facility] Start: 12-28-2021 End: 12-29-[address] DOCTOR WHALEN Facility:[facility] Start: 09-01-2021 End: 09-02-[address] DOCTOR WHALEN Facility:[facility] Start: 08-16-2021 End: 08-16-2021 Patient encounter procedure Scotty LOGAN [facility] Start: 08-11-2021 End: 08-12-[address] DOCTOR WHALEN Facility:[facility] Start: 05-22-2021 End: 05-29-[address] DOUGLAS LEWIS Facility:[facility] Start: 05-11-2021 End: 05-14-2021 Evaluation and management of inpatient DR DOUGLAS LEWIS Facility:[facility] Procedures Date Procedure Procedure Detail Performing Clinician Start: 10-07-2024 US OB BPP W NON-STRESS Generic External Data Provider Start: 09-23-2024 Urnls dip stick/tabl et rgnt non-auto w/o micrscp Douglas Debbie DO Work Phone: Start: 07-22-2024 [facility] CMP (CMP) (FOR R EMOTE [facility] USE) Douglas Debbie DO Work Phone: [...] object) Scotty LOGAN Bypass of stomach Scotty MARCOS [place] Cholecystectomy Scotty LOGAN Plan of Treatment Date Care Activity Detail Author Start: 12-28-2024 Influenza vaccination Influenz a Vaccine (Season Ended) [facility] Start: 11-10-2024 End: 11-10-2024 Patient encounter procedure 11/10/2024 10:00 AM EDT Office Visit [facility] [address] [place] [phone] Douglas Lewis, DO [address], [place] [address] [facility] Start: 11-04-2024 End: 11-04-2024 Patient encounter procedure 11/04/2024 10:50 AM EDT Routine [facility] [address] [place] [place] [phone] Douglas Lewis, DO [address] [place] [address] [facility] Start: 10-28-2024 End: 10-28-2024 Patient encounter procedure 10/28/2024 9:00 AM EDT Routine [facility] [address] [place] [phone] Maddie Harp PA [address] [place], [place] [id number] [facility] Start: 10-26-2024 Influenza vaccination Influenza Vacc ine (#1) [facility] Comment on above: Postponed from 12/28 (Patient Refused) Start: 10-21-2024 End: 10-21-2024 Patient encounter procedure 10/21/2024 1:30 PM EDT Routine [facility] [address] [place] [phone] Douglas Lewis, DO [address] [place] [address] [facility] Start: 10-07-2024 End: 10-07-2024 Patient encounter procedure 10/07/2024 1:50 PM EDT Routine [facility] [address] [place] [address] Douglas Lewis, DO [address] [place] [address] [facility] Start: 09-23-2024 End: 09-23-2024 Patient encounter procedure 09/23/2024 11:30 AM EDT Routine [facility] [address] [place] [phone] Douglas Lewis, DO [address] [place] [address] [facility] Start: 09-15-2024 End: 09-15-2024 Professional / ancillary services management 09/15/2024 11:30 AM EDT Ancillary Procedure [facility] [address] [place] [phone] [facility] Start: 09-08-2024 End: 03-11-2025 [...] of gastric bypass Expected: 09/08/2024, Expires: 01/09/2025 [facility] Comment on above: Expected: 09/08/2024 , Expires: 01/09/2025 Start: 09-08-2024 End: 09-08-2024 Patient encounter procedure 09/08/2024 9:20 AM EDT Routine [facility] [address] [place] [phone] Douglas Lewis, DO [address] [place] [address] [facility] Start: 08-26-2024 End: 08-26-2024 Patient encounter procedure 08/26/2024 8:50 AM EDT Routine [facility] [address] [place] [phone] Ingrid Villalta, [employer] [address] [place] [phone] [facility] Start: 08-13-2024 End: 08-13-2024 Patient encounter procedure 08/13/2024 9:10 AM EDT Routine [facility] [address] [place] [phone] Douglas Lewis, DO [address] [place] [address] [facility] Start: 07-16-2024 End: 07-16-2025 CBC panel - Blood by Automated count CBC Lab Routine 22 weeks gestation of Second trimester Diabetes mellitus screening Expected: 07/16/2024 (Approximate), Expires: 07/16/2025 [facility] Work Phone: Comment on above: Expected: [...] EDT Ancillary Procedure [facility] [address] [place] [address] [facility] Start: 06-17-2024 End: 06-17-2025 [...] gestational age Expected: 04/17/2024 (Approximate), Expires: 04/17/2025 [facility] Work Phone: Comment on above: Expected: 04/17/2024 (Approximate), Expires: 04/17/2025 Start: 04-17-2024 End: 04-17-2025 Drugs of abuse panel - Urine by Screen method Rapid drug screen, urine Lab Routine , unspecified gestational age Encounter for supervision of normal first in first trimester Expected: 04/17/2024 (Approximate), Expires: 04/17/[address] [facility] Comment on above: Expected: 04/17/2024 (Approximate), Expires: 04/17/2025 Start: 04-17-2024 End: 04-17-2025 US Pelvis transvaginal US OB transvaginal Imaging Routine Missed menses Expected: 04/17/2024 (Approximate), Expires: 04/17/[address] [facility] Comment on above: Expected: 04/17/2024 (Approximate), Expires: 04/17/2025 Start: 01-16-2024 End: 01-16-2024 Professional / ancillary services management 01/16/2024 10:00 AM EDT Ancillary Procedure [facility] [address] [place] [address] [facility] Start: 01-11-2024 End: 01-10-2025 CT Abdomen and Pelvis WO contrast CT abdomen pelvis wo IV contrast Imaging Routine Other microscopic hematuria Expected: 01/11/2024, Expires: 01/10/[address] [facility] Work Phone: Comment on above: Expected: 01/11/2024 , Expires: 01/10/2025 Bacteria identified in Urine by Culture Urine culture Microbiology Routine Missed menses Ordered: 04/17/[address] [facility] Comment on above: Ordered: 04/17/2024 CBC W Auto Different ial panel - Blood CBC and differential Lab Routine Missed menses , unspecified gestational age Ordered: 04/17/[address] [facility] Comment on above: Ordered: 04/17/2024 CHLAMYDIA TRACHOMATI S (GENITO/STI) CHLAMYDIA TRACHOMATIS (GENITO/STI) Lab Routine Screening examination for STI Ordered: 06/17/[address] [facility] Comment on above: Ordered: 06/17/2024 Hemoglobin A1c/Hemoglobin.total in Blood Hemoglobin A1c Lab Routine Missed menses , unspecified gestational age Ordered: 04/17/[address] [facility] Comment on above: Ordered: 04/17/2024 Hemoglobin A1c/Hemoglobin.total in Blood Hemoglobin A1c Lab Routine 22 weeks gestation of Second trimester Diabetes mellitus screening History of gastric bypass Ordered: 07/16/[address] [facility] Comment on above: Ordered: 07/16/2024 Hepatitis B virus surface Ag [Presence] in Serum or Plasma by Immunoassay Hepatitis B surface antigen Lab Routine Missed menses , unspecified gestational age Ordered: 04/17/[address] [facility] Comment on above: Ordered: 04/17/2024 Hepatitis C virus Ab [Presence] in Serum or Plasma by Immunoassay Hepatitis C antibody Lab Routine Missed menses , unspecified gestational age Ordered: 04/17/[address] [facility] Comment on above: Ordered: 04/17/2024 HIV-1/HIV-2 antigen/antibody combination immunoassay HIV-1 and HIV-2 antibodies Lab Routine Missed menses , unspecified gestational age Ordered: 04/17/[address] [facility] Comment on above: Ordered: 04/17/2024 Neisseria gonorrhoea e DNA [Presence] in Unspecified specimen by DEZ with probe detection Neisseria gonorrhea DNA probe, direct Lab Routine Screening examination for STI Ordered: 06/17/[address] [facility] Comment on above: Ordered: 06/17/2024 Reagin Ab [Presence] in Serum by RPR RPR Lab Routine Missed menses , unspecified gestational age Ordered: 04/17/[address] [facility] Comment on above: Ordered: 04/17/2024 Rubella antibody, IgG Rubella an tibody, IgG Lab Routine Missed menses , unspecified gestational age Ordered: 04/17/[address] [facility] Comment on above: Ordered: 04/17/2024 SURESWAB(R) ADVANCED VAGINITIS PLUS, TMA SURESWAB(R) ADVANCED VAGINITIS PLUS, TMA Pathology and Cytology Routine Screening examination for STI Ordered: 06/17/[address] [facility] Work Phone: Comment on above: Ordered: 06/17/2024 Immunizations Immunization Date Immunization Notes Care Provider Fa cility 05-03-2020 influenza, injectabl e, quadrivalent, contains preservative Xena Mccallum MD Work Phone: [facility] 05-03-2020 influenza virus vacc ine, unspecified formulation Xena Mccallum MD Work Phone: [facility] 10-03-2018 influenza, injectabl e, quadrivalent, contains preservative Xena Mccallum MD Work Phone: [facility] 02-21-2016 influenza, seasonal, injectable, preservative free Xena Mccallum MD Work Phone: [facility] Payers Date Payer Category Payer [facility] [id number] [id number] 2023 Unknown [id number] 2022 Medicaid [facility] MEDICAID [place] [id number] 2022-Present [address] [place] [id number] 2022 Medicaid (Managed Care) [employer] [id number] 1995 Unknown [id number] 2.840.1.454626.3.579.2. 593 1995 Unknown [id number] 2.16840.1.197035.3.579.2. 593 1995 Unknown [id number] 2.16.840.1.682718.3.579.2. 593 1995 Unknown [id number] 2.16.840.1.201678.3.579.2. 593 1995 Unknown [id number] 2.16.840.1.715797.3.579.2. 593 1995 Unknown [id number] 2.16.840.1.593306.3.579.2. 593 1995 Unknown [id number] 2.16.840.1.353977.3.579.2. 593 1995 Unknown [id number] 2.16.840.1.547348.3.579.2. 593 1995 Unknown [id number] 2.16.840.1.664482.3.579.2. 593 1995 Unknown [id number] 2.16.840.1.538545.3.579.2. 727 1995 Unknown [id number] 2.16.840.1.068096.3.579.2. 1259 1995 Unknown [id number] 2.16.840.1.910709.3.579.2. 1259 1995 Unknown [id number] 2.16.840.1.866853.3.579.2. 1259 1995 Unknown [id number] 2.16.840.1.877294.3.579.2. 1259 1995 Unknown [id number] 2.16.840.1.481066.3.579.2. 1259 1995 Unknown [id number] 2.16.840.1.487283.3.579.2. 1259 1995 Unknown [id number] 2.16.840.1.724999.3.579.2. 1259 1995 Unknown [id number] 2.16.840.1.369205.3.579.2. 1259 1995 Unknown [id number] 2.16.840.1.156830.3.579.2. 1259 1995 Unknown [id number] 2.16.840.1.115676.3.579.2. 1259 1995 Unknown [id number] 2.16.840.1.616956.3.579.2. 1259 1995 Unknown [id number] 2.16.840.1.026698.3.579.2. 1259 1995 Unknown [id number] 2.16.840.1.546425.3.579.2. 1259 1959 Self-pay [id number] 1959 Unknown [id number] Social History Date Type Detail Facility Start: 04-29-2020 End: 06-18-2023 Tobacco smoking status Never smoked tobacco (finding) [facility] Comment on above: Pt. denies Tobacco smoking status Never [facility] Comment on above: Pt. denies Start: 06-18-2023 End: 01-13-2024 Sex Assigned At Female [facility] Start: 06-18-2023 Tobacco use and exposure [...] on file [facility] Start: 02-27-2024 [facility] dominguez Clinical Notes 05-11-2021 to 10-07-2024 Thelma Perry LPN - 10/07/2024 1:50 PM López Perry LPN - 09/23/2024 11:30 AM López Perry LPN - 09/08/2024 9:20 AM Claudine Zapata LPN - 08/13/2024 9:10 AM EDT Note Date & Type Note Facility 10-07-2024 History of Presen t illness Narrative Reason [...] Active Ambulatory Problems Diagnosis Date Noted Depression ([facility]) 06/18/2023 Anemia 06/18/2023 Anxiety 06/18/2023 Recurrent nephrolithiasis 09/05/2016 Essential thrombocythemia ([facility]) 06/18/2023 Gastric bypass status for [...] COSMETIC SURGERY 05/17/2020 [facility] [place] ELBOW SURGERY Left 1999 OTHER SURGICAL HISTORY [...] nursing note reviewed. Exam conducted with a associate brand manager present. Vitals: Estimated body mass index is 33.78 kg/m as calculated from the following: Height [...] Douglas Lewis DO documented in this encounter [facility] 09-23-2024 History of Presen t illness Narrative [...] Active Ambulatory Problems Diagnosis Date Noted Depression ([facility]) 06/18/2023 Anemia 06/18/2023 Anxiety 06/18/2023 Recurrent nephrolithiasis 09/05/2016 Essential thrombocythemia ([facility]) 06/18/2023 Gastric bypass status for [...] COSMETIC SURGERY 05/17/2020 [facility] [place] ELBOW SURGERY Left 2000 OTHER SURGICAL HISTORY [...] nursing note reviewed. Exam conducted with a associate brand manager present. Vitals: Estimated body mass index [...] Douglas Lewis DO documented in this encounter [facility] 09-08-2024 History of Presen t illness Narrative [...] Active Ambulatory Problems Diagnosis Date Noted Depression ([facility]) 06/18/2023 Anemia 06/18/2023 Anxiety 06/18/2023 Recurrent nephrolithiasis 09/05/2016 Essential thrombocythemia ([facility]) 06/18/2023 Gastric bypass status for [...] COSMETIC SURGERY 05/17/2020 [facility] [place] ELBOW SURGERY Left 2000 OTHER SURGICAL HISTORY [...] nursing note reviewed. Exam conducted with a associate brand manager present. Vitals: Estimated body mass index [...] Douglas Lewis DO documented in this encounter [facility] 08-13-2024 History of Presen t illness Narrative [...] Active Ambulatory Problems Diagnosis Date Noted Depression (CMS/HCC) 06/18/2023 Anemia 06/18/2023 Anxiety 06/18/2023 Recurrent nephrolithiasis [...] COSMETIC SURGERY 05/17/2020 [facility] [place] ELBOW SURGERY Left 2000 OTHER SURGICAL HISTORY [...] nursing note reviewed. Exam conducted with a associate brand manager present. Vitals: Estimated body mass index [...] Douglas Lewis DO documented in this encounter [facility] 07-16-2024 History of Presen t illness Narrative [...] Active Ambulatory Problems Diagnosis Date Noted Depression (CMS/HCC) 06/18/2023 Anemia 06/18/2023 Anxiety 06/18/2023 Recurrent nephrolithiasis [...] COSMETIC SURGERY 05/17/2020 [facility] [place] ELBOW SURGERY Left 2000 OTHER SURGICAL HISTORY [...] nursing note reviewed. Exam conducted with a associate brand manager present. Vitals: Estimated body mass index [...] Maddie Harp PA-C documented in this encounter [facility] 06-17-2024 History of Presen t illness Narrative [...] Active Ambulatory Problems Diagnosis Date Noted Depression ([facility]) 06/18/2023 Anemia 06/18/2023 Anxiety 06/18/2023 Recurrent nephrolithiasis 09/05/2016 Essential thrombocythemia ([facility]) 06/18/2023 Gastric bypass status for [...] COSMETIC SURGERY 05/17/2020 [facility] [place] ELBOW SURGERY Left 2000 OTHER SURGICAL HISTORY [...] nursing note reviewed. Exam conducted with a associate brand manager present. Vitals: Estimated body mass index [...] of: KYLE Martinez documented in this encounter [facility] 05-20-2024 History of Presen t illness Narrative Reason [...] Active Ambulatory Problems Diagnosis Date Noted Depression ([facility]) 06/18/2023 Anemia 06/18/2023 Anxiety 06/18/2023 Recurrent nephrolithiasis 09/05/2016 Essential thrombocythemia ([facility]) 06/18/2023 Gastric bypass status for [...] COSMETIC SURGERY 05/17/2020 [facility] [place] ELBOW SURGERY Left 2000 OTHER SURGICAL HISTORY [...] nursing note reviewed. Exam conducted with a associate brand manager present. Vitals: Estimated body mass index [...] or undercooked meat, [facility] Patient has been consulted regarding any further do's and don'ts of . Patient voiced understanding and all questions and concerns were answered. Orders Placed This Encounter Procedures POCT urinalysis dipstick manually resulted Follow Up: Patient is to return in 4 weeks for routine OB appointment. Documented by Thelma Perry LPN on behalf of: Douglas Lewis DO documented in this encounter [facility] 04-17-2024 History of Presen t illness Narrative [...] Active Ambulatory Problems Diagnosis Date Noted Depression ([facility]) 06/18/2023 Anemia 06/18/2023 Anxiety 06/18/2023 Recurrent nephrolithiasis 09/05/2016 Essential thrombocythemia ([facility]) 06/18/2023 Gastric bypass status for [...] COSMETIC SURGERY 05/17/2020 [facility] [place] ELBOW SURGERY Left 1999 OTHER SURGICAL HISTORY [...] or undercooked meat, [facility]. Patient has also been advised to not [...] Cecy Nicholas MA documented in this encounter [facility] 02-20-2024 Telephone encounter Note Approvals with refills [facility] 02-20-2024 Miscellaneous Notes Approvals with refills documented in this encounter [facility] 01-09-2024 History of Presen t illness Narrative Tan R Tritch is a 28 y.o. female presents with [...] COSMETIC SURGERY 05/17/2020 [facility] [place] ELBOW SURGERY Left 1999 OTHER SURGICAL HISTORY [...] Assessment & Plan documented in this encounter [facility] 01-09-2024 Telephone encounter Note Patient is losing her insurance any day now. Can you refill all these for 90 days? Uses [facility] in [place]. She recently got and is switching to her husbands insurance. Thank you [facility] 01-09-2024 Miscellaneous Notes Patient is losing her insurance any day now. Can you refill all these for 90 days? Uses [facility] [place]. She recently got and is switching to her husbands insurance. Thank you documented in this encounter [facility] 08-16-2021 Hospital Discharg e instructions Follow Up Care 08/16/2021 11:11:34 With:DESMOND BURKS, Scotty English, URL Address: [address] [place] [address]- When: Unknown [facility] 08-16-2021 Hospital Discharg e instructions Patient Education 08/16/2021 11:04:11 Kidney Stones, Ulge-oz-Xjtz Kidney Stones Kidney stones are rock-like masses [...] Follow these instructions at home: Medicines Take keux-nbj-cftuzfg and prescription medicines only as told by [...] 10/01/2008 Document Revised: 09/01/2019 Document Reviewed: 09/01/2019 [employer] Patient Education 2020 [employer] 08/16/2021 11:04:10 Calorie Counting for Weight Loss [...] 04/15/2006 Document Revised: 01/02/2019 Document Reviewed: 03/15/2017 [employer] Patient Education 2020 [employer] Follow Up Care 03/22/2021 11:46:26 With:DESMOND BURKS, Scotty Amador, URL Address: When:Within 6 Month(s) Comments:w/MAGALYS [facility] 05-11-2021 Note DISCHARGE SUMMARY PRIMARY DIAGNOSES: [...] pain free and no longer on narcotics. [facility] Signed and Approved by: DR DOUGLAS LEWIS . 06/08/2021 22:19:00 [facility] 05-11-2021 Note OPERATIVE NOTE PROCEDURE: Primary low transverse section. PREOPERATIVE DIAGNOSIS: 1. Intrauterine at 39 weeks. 2. Non-reassuring heart tones. POSTOPERATIVE DIAGNOSIS: 1. Intrauterine at 39 weeks. 2. Non-reassuring heart tones. SURGEON: Douglas Lewis D.O. [employer] GENERAL MANAGER: DATABASE SOFTWARE TECHNICIAN ANESTHESIA: Epidural with Duramorph. BLOOD LOSS: 575 mL. URINE OUTPUT: Yellow and clear. FINDINGS: Viable . Apgars unknown at this time. PROCEDURE: Patient [...] patient's uterus and extended laterally digitally. The was then delivered atraumatically after the bladder [...] to the Recovery Room in stable condition. [facility] Signed and Approved by: DR DOUGLAS LEWIS . 06/08/2021 22:19:00 [facility] Evaluation + Plan note Future Appointments Appointment Date:09/19/2021 11:00:00 AM Scheduled Provider:Scotty LOGAN MD Location:Critical access hospital Appointment Type:URO Phone Visit Appointment Date:02/21/2022 11:15:00 AM Scheduled Provider:Scotty LOGAN MD Location:[facility] Appointment Type:URO Office Visit [facility] Evaluation note Diagnosis Neck pain Cervicalgia [...] state, incidental [facility] Diagnosis Third trimester state, incidental 33 weeks gestation of [facility] Narrative No data available for this section [facility] Progress note No data available for this section [facility] Summary Purpose Family History No Family History [...] pelvis wo IV contrast Xena Mccallum MD [address] [place] [address] Referral ID Status Reason Start Date Expiration Date V isits Requested Visits Authorized [id number] Pending Review 01/11/2024 07/09/2024 1 1 Additional Source Comments INFORMATION SOURCE (unrecogn ized section and content) DATE CREATED AUTHOR 10/05/2018 [facility] DATE CREATED AUTHOR AUTHOR'S ORGANIZ ATION 06/06/2021 [facility] DATE CREATED AUTHOR AUTHOR'S ORGANIZ ATION 07/13/2021 [facility] dical Specialist DATE CREATED AUTHOR AUTHOR'S ORGANIZ ATION 05/09/2022 [facility] DATE CREATED AUTHOR AUTHOR'S ORGANIZ ATION 07/26/2023 Candelaria Kaufman [facility] DATE CREATED AUTHOR AUTHOR'S ORGANIZ ATION 10/10/2024 [facility] dical Specialists EPIC Patient Care team informatio n (unrecognized section and content) Stripe Matcher Relationship Specialty Start Date End Date Xena Mccallum MD [address] [facility] [place] [address] PCP - General Family Medicine 09/04/22 Isabel Li, WEAPONS DESIGNER [address] [facility] [place] [address] PCP - [facility] 10/28/23 Stripe Matcher Relationship Specialty Start Date End Date Xena Mccallum MD [address] [facility] [place] [address] PCP - General Family Medicine 09/04/22 Isabel Li WEAPONS DESIGNER [address] [facility] [place] [address] PCP - [facility] 10/28/23 Stripe Matcher Relationship Specialty Start Date End Date Xena Mccallum MD [address] [facility] [place] [address] PCP - General Family [facility] 09/04/22 Isabel Li, WEAPONS DESIGNER [address] [place] [place] [address] PCP - [facility] 10/28/23 Stripe Matcher Relationship Specialty Start Date End Date Xena Mccallum MD [address] [place] [place] [address] PCP - General Family [facility] 09/04/22 Isabel Li, WEAPONS DESIGNER [address] [place] [place] [address] PCP - [facility] 10/28/23 Stripe Matcher Relationship Specialty Start Date End Date Xena Mccallum MD [address] [place] [place] [address] PCP - General Family [facility] 09/04/22 Isabel Li, WEAPONS DESIGNER [address] [place] [place] [address] PCP - [facility] 10/28/23 Stripe Matcher Relationship Specialty Start Date End Date Xena Mccallum MD [address] [place] [place] [address] PCP - General Family Medicine 09/04/22 Isabel Li, WEAPONS DESIGNER PCP - [facility] 10/28/23 Stripe Matcher Relationship Specialty Start Date End Date Xena Mccallum MD [address] [place] [place] [address] PCP - General Family Medicine 09/04/22 Isabel Li, WEAPONS DESIGNER PCP - [facility] 10/28/23 Stripe Matcher Relationship Specialty Start Date End Date Xena Mccallum MD [address] [place] [place] [address] PCP - General Family Medicine 09/04/22 Isabel Li WEAPONS DESIGNER PCP [facility] 10/28/23 Stripe Matcher Relationship Specialty Start Date End Date Xena Mccallum MD [address] [place] [place] [address] PCP - [facility] 09/04/22 Isabel Li WEAPONS DESIGNER PCP - [facility] 10/28/23 Stripe Matcher Relationship Specialty Start Date End Date Xena Mccallum MD [address] [place] [place] [address] PCP - General Family Medicine 09/04/22 Isabel Li, WEAPONS DESIGNER PCP - [facility] 10/28/23 Stripe Matcher Relationship Specialty Start Date End Date Xena Mccallum MD [address] [place] [place] [address] PCP - General Family Medicine 09/04/22 Isabel Li, WEAPONS DESIGNER PCP [facility] 10/28/23 Stripe Matcher Relationship Specialty Start Date End Date Xena Mccallum MD [address] [place] [address] PCP - General Family Medicine 09/04/22 Isabel Li, WEAPONS DESIGNER [facility] 10/28/23 Stripe Matcher Relationship Specialty Start Date End Date Xena Mccallum MD [address] [place] [address] PCP - [facility] 09/04/22 Isabel Li NP [facility] 10/28/23 Stripe Matcher Relationship Specialty Start Date End Date Xena Mccallum MD [address] [facility] [place], [place] [id number] PCP - [facility] 09/04/22 Isabel Li, WEAPONS DESIGNER [facility] 10/28/23 Reason for Visit (unrecogniz ed section [...] BE BASED ON THE PRIMARY CLINICAL RECORDS. [employer] [facility]. provides no warranty or guarantee of the accuracy or completeness of information in this document.
[2024-10-10 16:52] VITALS: BP 123/85; PULSE 96
== END 2024-10-10 17:20 | disposition home or self-care (01) ==
LOC: FBCO 16:45 → FBC 16:47
PROVIDERS: PCP Family Medicine; Visit Provider Obstetrics & Gynecology
DX: O26.893 Other specified pregnancy related conditions, third trimester (principal)
CPT/HCPCS: 59025

== ENCOUNTER 2024-10-14 08:54 | Outpatient (OUT) | payer BC, SELFPAY ==
--- NOTE | 2024-10-14 | US_ITS ---
[address] [address] Patient Name: SAMREEN MARS MRN: [id number] date: 1995 Sex: F Assigned Patient Location: [facility] Current Patient Location: Accession/Order Number: [id number] Exam Date: 10/14/2024 09:47 Report Date: 10/14/2024 09:51 At the request of: CLINTON GALLARDO DO Procedure: US OB BPP w non-stress BIOPHYSICAL PROFILE: CLINICAL INFORMATION: History of gastric bypass Z98.84 COMPARISON: 10/07/2024 There is a single live intrauterine gestation in cephalic presentation. The reported gestational age is 34 weeks 6 days. The heart rate measures 139 beats per minute. FINDINGS: TONE: 1 or more episodes of activity extension and flexion of extremity or opening and closing of the hand [Y] 2/2 GROSS BODY MOVEMENTS: 3 or more discrete body or limb movements [Y] 2/2 BREATHING MOVEMENTS: 1 or more episodes of breathing lasting at least 30 seconds [Y] 2/2 PATITO: A single deepest vertical pocket of amniotic fluid greater than 2 cm [Y] 2/2 PATITO: 23.6 cm. The 95th percentile is 24.9. The PATITO on the comparison was 15.8 cm. Total score: 8/8 US/US OB BPP w non-stress IMPRESSION: NORMAL BIOPHYSICAL PROFILE. INCREASE IN PATITO SINCE THE PRIOR. FOLLOW-UP ON SUBSEQUENT STUDIES IS SUGGESTED. Impression dictated by: Thelma Morales M.D. 10/14/2024 9:51 AM Dictation Location: [place] [address] Electronically authenticated by: [id number] Y Date: 10/14/2024 09:51
--- OUTSIDE RECORDS SUMMARY | 2024-10-14 09:14 | XMS_ITS | CCD ---
Author Organization [facility] Care Team Providers Care Import Export Manager Name Role Phone XENA MCCALLUM Primary Care Physician [phone] DESMOND, DR SCOTTY English Admitting Unavailable COOK, [...] Admitting Unavailable DEBBIE, DR ALONZO Attending Unavailable MRAY, DR BARCENAS Primary Care Unavailable MISC, DR [...] Provider Guillermo ALVARADO, Isabel Higgins Unavailable Guillermo MILLING MACHINISTIsabel Unavailable DEBBIE, DOUGLAS Attending Unavailable KATIUSKA, MADDIE Attending Unavailable KATIUSKA, MADDIE Referring Unavailable DEBBIE, DOUGLAS Attending Unavailable DEBBIE, DOUGLAS Attending Unavailable DEBBIE, DOUGLAS Attending Unavailable DEBBIE, DOUGLAS Referring Unavailable DEBBIE, DOUGLAS Attending Unavailable DEBBIE, DOUGLAS Attending Unavailable DEBBIE, DOUGLAS Attending Unavailable MARY XENA F Attending Unavailable MAYR XENA Bentley Referring Unavailable Allergies Allergy Classification Reported Allergen(s) Allergy Type Date of Onset Reaction(s) Facility (20 sources) Clindamycin; Translations: [clindamycin] Drug Allergy 4 Swelling [facility] (3 sources) Penicillin; Translations: [penicillin] Drug Allergy Rash [facility] (2 sources) Clindamycin Drug Allergy 1 [facility] Repository (1 source) Penicillins Drug allergy (disorder) 4 [facility] Repository (20 sources) Lamotrigine Allergy to substance 4 [facility] Healthcare (20 sources) Morphine Drug Allergy 4 Hives [facility] Healthcare (20 sources) Penicillins Drug Allergy 6 Rash, Unknown [facility] Healthcare Medications Current Medications Medication Drug [...] 06-18-2023 Episodic Other aftercare (1 source) Other extermination inspector (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; Translations: [OTH INTERMEDIATE CURRENT DRUG THERAPY] Onset: 06-09-2021 Episodic Other [...] US OB BPP W NON-STRESS on 10-07-2024 [place] [address] Ultrasound Report Signed Patient: TAN MARS MR#: [id number] : 1995 Acct:[id number] Age/Sex: 29 / F ADM Date: 10/07/24 Loc: US Attending Dr: Douglas Lewis D.O. Ordering Physician: Douglas Lewis D.O. Date of Service: 10/07/24 Procedure(s): US OB BPP w non-stress Accession Number(s): [id number] cc: XENA MCCALLUM ; Douglas Lewis D.O. [place] [address] Patient Name: TAN MARS MRN: [id number] date: 1995 Sex: F Assigned Patient Location: [facility] Current Patient Location: Accession/Order Number: [id number] Exam Date: 10/07/2024 09:20 Report Date: 10/07/2024 [...] Morales M.D. 10/07/2024 9:21 AM Dictation Location: [place] [address] Electronically authenticated by: [id number] Y Date: 10/07/2024 09:21 Dictated By: Thelma Morales M.D. Signed By: 10/07/24923 DD/ 0 TD/TT: Dolly Operator: [facility] Radiology, Radiologist, - 10/07/2024 [place] [address] Ultrasound Report Signed Patient: TAN MARS MR#: [id number] : 1995 Acct:[id number] Age/Sex: 29 / F ADM Date: 10/07/24 Loc: US Attending Dr: Douglas Lewis D.O. Ordering Physician: Douglas Lewis D.O. Date of Service: 10/07/24 Procedure(s): US OB BPP w non-stress Accession Number(s): [id number] cc: XENA MCCALLUM ; Douglas Lewis D.O. [place] [id number] Patient Name: TAN MARS MRN: [facility]:[id number] date: 1995 Sex: F Assigned Patient Location: [facility] Current Patient Location: Accession/Order Number: [id number] Exam Date: 10/07/2024 09:20 Report Date: 10/07/2024 [...] Morales M.D. 10/07/2024 9:21 AM Dictation Location: [place] [address] Electronically authenticated by: [id number] Y Date: 10/07/2024 09:21 Dictated By: Thelma Morales M.D. Signed By: 10/07/24923 DD/ 0 TD/TT: Dolly Operator: [facility] Radiology Study observation (narrative) [facility] US OB BPP W NON-STRESS Ordered By: Radiologist Radiology on 10-07-2024 [facility] Work Phone: Urinalysis macro (dipstick) panel (U)on 09-23-2024 Bilirubin, UA Negative Negative - 4(70) +++ mg/dL [facility] Blood, UA Negative Negative - 50 Liam/mcL [facility] Clarity, UA Clear [facility] Color, UA Yellow [facility] Glucose, UA Negative Negative - 2000(110) ++++ mg/dL [facility] Interpretation and review of laboratory results Abnormal [facility] Ketones, UA Negative Negative - 160(16) ++++ mg/dL [facility] Leukocytes, UA Trace Negative - 500+++ Mele/mcL [facility] Nitrite, UA Negative Negative - Positive [facility] pH, UA 7.5 5 - 9 [facility] Protein, UA Negative Negative - 2000(20) ++++ mg/dL [facility] Spec Grav, UA 1.02 1 - 1.03 [facility] Urobilinogen, UA 0.2 0.2 - 12 mg/dL Counts include 234 beds at the [facility] US OB FOLLOW UP TRANSABDOMIN AL [...] II, MD, PHD at 15-Sep-2024 10:59:56 PM [facility] Normal Not Available Comment on above: Order Comment: US OB SCAN FOR GROWTH Estimated Date of Delivery: 11/19/24 Gestational Age as of 09/08/2024: 29w5d [facility] CMP (CMP) (FOR REMOTE FH C USE)on 07-22-2024 Albumin [Mass/Vol] 2.9 g/dL Low 3.4 - 5.0 g/dL [facility] ALBUMIN GLOBULIN RATIO 0.7 [facility] ALP [Catalytic activity/Vol] 72 U/L 46 - 116 U/L [facility] ALT [Catalytic activity/Vol] 17 U/L 14 - 59 U/L [facility] Anion gap [Moles/Vol] 11.3 mmol/L [facility] AST [Catalytic activity/Vol] 17 U/L 15 - 37 U/L [facility] Bilirubin [Mass/Vol] 0.2 mg/dL 0.2 - 1 .0 mg/dL [facility] Calcium [Mass/Vol] 8.5 mg/dL 8.5 - 10. 1 mg/dL [facility] Chloride [Moles/Vol] 104 mmol/L 98 - 10 7 mmol/L [facility] CO2 [Moles/Vol] 25.6 mmol/L 21.0 - 32.0 mmol/L [facility] Creatinine [Mass/Vol] 0.49 mg/dL Low 0.55 - 1.02 mg/dL [facility] GFR/1.73 sq M.predicted CKD-EPI (S/P/Bld) [Vol rate/Area] >60 >=60 mL/min/1.73m 2 [facility] Globulin (S) [Mass/Vol] 4.1 g/dL [facility] Glucose [Mass/Vol] 85 mg/dL 74 - 106 mg/dL [facility] Interpretation and review of laboratory results Abnormal [facility] Potassium [Moles/Vol] 3.9 mmol/L 3.5 - 5.1 mmol/L [facility] Protein [Mass/Vol] 7 g/dL 6.4 - 8.2 g/dL [facility] Sodium [Moles/Vol] 137 mmol/L 136 - 145 mmol/L [facility] TBH EGFR-NON AF BOLIVIAN >60 >=60 mL/min/1.73m 2 [facility] Urea nitrogen [Mass/Vol] 10 mg/dL 7.0 - 18.0 mg/dL [facility] Urea nitrogen/Creatinine [Mass ratio] 20.4 mg/mg [facility] METRO BILIRUBIN, DIRECTon Bilirubin.indirect [Mass/Vol] mg/dL 0.0 - 0.2 mg/dL [facility] No Panel Informationon 07-22 [facility] Urinalysis macro (dipstick) panel (U)on 07-16-2024 Bilirubin, UA Negative Negative - 4(70) +++ mg/dL [facility] Blood, UA Negative Negative - 50 Liam/mcL [facility] Clarity, UA Cloudy [facility] Color, UA Yellow [facility] Glucose, UA 1+ Negative - 2000(110) ++++ mg/dL [facility] Comment on above: 500mg Interpretation and review of laboratory results Abnormal [facility] Ketones, UA Positive Negative - 160(16) ++++ mg/dL [facility] Comment on above: trace Leukocytes, UA Trace Negative - 500+++ Mele/mcL [facility] Nitrite, UA Negative Negative - Positive [facility] pH, UA 7 5 - 9 [facility] Protein, UA Negative Negative - 2000(20) ++++ mg/dL [facility] Spec Grav, UA 1.015 1 - 1.03 [facility] Urobilinogen, UA 0.2 0.2 - 12 mg/dL Counts include 234 beds at the [facility] US OB 14+ WEEKS ANATOMY SCAN [...] Signed: Electronically Signed:Electronicall y signed by STARR APLOMINO II, MD, PHD at 11-Jul-2024 06:17:29 PM [facility] Normal Not Available Comment on above: Order Comment: US OB ANATOMY SINGLE W US OB CERVICAL LENGTH Estimated Date of Delivery: 11/19/24 Gestational Age as of 06/17/2024: 17w6d Urinalysis macro (dipstick) panel (U)on 06-17-2024 Bilirubin, UA Negative Negative - 4(70) +++ mg/dL [facility] Blood, UA Negative Negative - 50 Liam/mcL [facility] Healthcare Clarity, UA Clear [facility] Color, UA Yellow [facility] Glucose, UA Negative Negative - 1999(110) ++++ mg/dL [facility] Interpretation and review of laboratory results Abnormal [facility] Healthcare Ketones, UA Negative Negative - 160(16) ++++ mg/dL [facility] Leukocytes, UA Positive Negative - 500+++ Mele/mcL [facility] Comment on above: small Nitrite, UA Negative Negative - Positive [facility] pH, UA 7 5 - 9 [facility] Healthcare Protein, UA Positive Negative - 1999(20) ++++ mg/dL [facility] Healthcare Comment on above: 30 mg Spec Grav, UA 1.015 1 - 1.[address] [facility] Urobilinogen, UA 0.2 0.2 - 12 mg/dL [facility] Urinalysis macro (dipstick) panel (U)on 05-20-2024 Bilirubin, UA Negative Negative - 4(70) +++ mg/dL [facility] Blood, UA Negative Negative - 50 Liam/mcL [facility] Healthcare Clarity, UA Clear [facility] Color, UA Yellow [facility] Glucose, UA Negative Negative - 1999(110) ++++ mg/dL [facility] Interpretation and review of laboratory results Normal [facility] Ketones, UA Negative Negative - 160(16) ++++ mg/dL [facility] Leukocytes, UA Negative Negative - 500+++ Mele/mcL [facility] Nitrite, UA Negative Negative - Positive [facility] pH, UA 5.5 5 - 9 [facility] Protein, UA Negative Negative - 1999(20) ++++ mg/dL [facility] Spec Grav, UA 1.03 1 - 1.03 [facility] Urobilinogen, UA 0.2 0.2 - 12 mg/dL Counts include 234 beds at the [facility] BOX TESTon 05-11-2024 BOX TEST SENT OUT [facility] BOX1 [facility] BOX2 05/11/2024 [facility] BOX [facility] HCG ( test) Ql (U)o n 04-17-2024 Interpretation and review of laboratory results Abnormal [facility] Preg Test, Ur Positive Negative Counts include 234 beds at the [facility] Urinalysis macro (dipstick) panel (U)on 04-17-2024 Bilirubin, UA Negative Negative - 4(70) +++ mg/dL [facility] Blood, UA Negative Negative - 50 Liam/mcL [facility] Clarity, UA Clear [facility] Color, UA Yellow [facility] Glucose, UA Negative Negative - 2000(110) ++++ mg/dL [facility] Interpretation and review of laboratory results Normal [facility] Ketones, UA Negative Negative - 160(16) ++++ mg/dL [facility] Leukocytes, UA Negative Negative - 500+++ Mele/mcL [facility] Nitrite, UA Negative Negative - Positive [facility] pH, UA 6.5 5 - 9 [facility] Protein, UA Negative Negative - 2000(20) ++++ mg/dL [facility] Spec Grav, UA 1.02 1 - 1.03 [facility] Urobilinogen, UA 0.2 0.2 - 12 mg/dL Counts include 234 beds at the [facility] ALL CBC WITH AUTO DIFFon BASOPHILS ABSOLUTE AUTO 0.1 [facility] Basophils/100 WBC (Bld) 0.6 % 0.2 - 2.0 % [facility] Eosinophils/100 WBC (Bld) 0.9 % 0.9 - 7.0 % [facility] Erythrocyte distribution width (RBC) [Ratio] 12.4 % 11.0 - 15.0 % [facility] Hematocrit (Bld) [Volume fraction] 43.7 % 36.0 - 48.0 % [facility] Hemoglobin (Bld) [Mass/Vol] 14.4 g/dL 12.0 - 16.0 g/dL [facility] IMMATURE GRANULOCYTES ABS AUTO 0.03 [facility] Immature granulocytes/100 WBC (Bld) 0.3 % 0.0 - 0.5 % [facility] Interpretation and review of laboratory results Abnormal [facility] LYMPHOCYTES ABSOLUTE AUTO 4.2 High [facility] Lymphocytes/100 WBC (Bld) 38.1 % 20.5 - 60.0 % [facility] MCH (RBC) [Entitic mass] 28.5 pg 26.7 - 34.0 pg [facility] MCHC (RBC) [Mass/Vol] 33.0 g/dL 29.9 - 35.2 g/dL [facility] MCV (RBC) [Entitic vol] 86.4 fL 81.0 - 99.0 fL [facility] MONOCYTES ABSOLUTE AUTO 0.7 [facility] Monocytes/100 WBC (Bld) 6.2 % 1.7 - 12.0 % [facility] NEUTROPHILS ABSOLUTE AUTO 5.9 [facility] Neutrophils/100 WBC (Bld) 53.9 % 43.0 - 75.0 % [facility] Platelet mean volume (Bld) [Entitic vol] 9.8 fL 9.5 - 13.5 fL [facility] EO # 0.1 [facility] PLT 430 [facility] RBC 5.06 [facility] WBC 11.0 [facility] CT ABDOMEN PELVIS WO IV CONT [facility] 01-16-2024 CT ABDOMEN PELVIS WO IV CONTRAST [...] report is generated using voice recognition reporting ([employer]). On occasion [employer] erroneously drops words from the report or replaces the spoken word with similar sounding words. Please call with any questions/concerns regarding this report.* Dictated and transcribed 01/17/2024/anna Preliminary report sent to [facility] on 01/17/2024 at 9:45 a.m. Nikkie confirmed doctor has report in hand. This report has been electronically signed and approved by the interpreting radiologist. Electronically Signed Ab Retana M.D. 2024-01-17 11:31:48 Normal Not Available Comment on above: Order Comment: PEKVI C PAIN, PRESSURE, HEMATURIA, HX KIDNEY STONES Bacteria identified Cx Nom ( U)on 01-11-2024 Appearance (U) Adequate [facility] Internal identifier for Provider [id number] [facility] Specimen source Nom (Unsp spec) URINE [facility] STATUS FINAL [facility] Laboratory - Microbiology an d Antimicrobial susceptibilityon 01-11-2024 Bacteria identified Cx Nom (U) SEE NOTE [facility] Comment on above: Less than 10,000 CFU/mL of single Gram negative organism isolated. No further testing will be performed. If clinically indicated, recollection using a method to minimize contamination, with prompt transfer to Urine Culture Transport Tube, is recommended. Laboratory - Miscellaneous t estson 01-11-2024 Service comment (Unsp spec) [Interp] [facility] Comment on above: This urine was sanju zed for the presence of WBC, RBC, bacteria, casts, and other formed elements. Only those elements seen were reported. No Panel Informationon 01-10 Performing Organization Information Site ID: QPT Name: [employer] [facility] Address: [address] [place] [address], [address] [place] [id number] Director: Brenden Conde MD Counts include 234 beds at the [facility] Urinalysis complete panel (U )on 01-11-2024 Appearance (U) CLEAR CLEAR [facility] Bacteria LM.HPF (Urine sed) [#/Area] NONE SEEN NONE SEEN /HPF [facility] Bilirubin Ql (U) Negative NEGATIVE [facility] Color (U) YELLOW YELLOW [facility] Epithelial cells.squamous LM.HPF (Urine sed) [#/Area] 0-5 < OR = 5 /HPF [facility] Glucose Ql (U) Negative NEGATIVE [facility] Hemoglobin Ql (U) Negative NEGATIVE [facility] Hyaline casts (Urine sed) [#/Area] NONE SEEN NONE SEEN /LPF [facility] Interpretation and review of laboratory results Abnormal [facility] Ketones Ql (U) Negative NEGATIVE [facility] Leukocyte esterase Test strip Ql (U) 1+ Abnormal NEGATIVE [facility] Nitrite Ql (U) Negative NEGATIVE [facility] pH (U) 7.0 [pH] 5.0 - 8.0 [facility] Protein Ql (U) Negative NEGATIVE [facility] RBC LM.HPF (Urine sed) [#/Area] 3-10 Abnormal < OR = 2 /HPF [facility] Specific gravity (U) [Rel density] 1.015 1.001 - 1.035 [facility] WBC LM.HPF (Urine sed) [#/Area] 0-5 < OR = 5 /HPF [facility] Urinalysis macro (dipstick) panel (U)on 01-09-2024 Bilirubin, UA Negative Negative - 4(70) +++ mg/dL [facility] Blood, UA Positive Negative - 50 Liam/mcL [facility] Clarity, UA Clear [facility] Color, UA Light Yellow [facility] Glucose, UA Negative Negative - 1999(110) ++++ mg/dL [facility] Interpretation and review of laboratory results Abnormal [facility] Ketones, UA Negative Negative - 160(16) ++++ mg/dL [facility] Leukocytes, UA 1+ Negative - 500+++ Mele/mcL [facility] Nitrite, UA Negative Negative - Positive [facility] pH, UA 6.0 5 - 9 [facility] Protein, UA Trace Negative - 1999(20) ++++ mg/dL [facility] Spec Grav, UA 1.020 1 - 1.03 [facility] Urobilinogen, UA 1.0 0.2 - 12 mg/dL Counts include 234 beds at the [facility] Physician Orderon 03-26-2023 Physician Order [id number] #[id number] Normal [facility] Formson 09-13-2022 Forms [id number] #1.00CD:127 Normal [facility] XR KUB 1 VIEWon 04-09-2022 XR [...] by: GENARO RODRÍGUEZ Date: 2022-04-09 18:02 Normal [facility] VITAMIN B1 (THIAMINE)on Vit. B1, Whole Blood 117.7 nmol/L Normal 66.5-200.0 Th e [facility] Comment on above: Performed By: #### [facility] #### [facility] [address] [place] [address] Dr. Kerrie Russell CBC AUTO DIFFon 02-28-2022 BASO # 0.1 103/ul Normal 0.0-0.1 [facility] Comment on above: Performed By: #### C BC #### [facility] [address] [place] [address] Dr. Kerrie Russell Basophils/100 WBC (Bld) 0.6 % Normal 0.2-2.0 [facility] Comment on above: Performed By: #### C BC #### [facility] [address] [place] [address] Dr. Kerrie Russell EO # 0.1 103/ul Normal 0.0-0.7 [facility] Comment on above: Performed By: #### C BC #### [facility] [address] [place] [address] Dr. Kerrie Russell Eosinophils/100 WBC (Bld) 1.3 % Normal 0.9-7.0 [facility] Comment on above: Performed By: #### C BC #### [facility] [address] [place] [address] Dr. Kerrie Russell Erythrocyte distribution width (RBC) [Ratio] 13.2 % Normal 11.0-15.0 [facility] Comment on above: Performed By: #### C BC #### [facility] [address] [place] [address] Dr. Kerrie Russell Hematocrit (Bld) [Volume fraction] 40.6 % Normal 36.0-48.0 [facility] Comment on above: Performed By: #### C BC #### [facility] [address] [place] [address] Dr. Kerrie Russell Hemoglobin (Bld) [Mass/Vol] 13.8 g/dL Normal 12.0-16.0 [facility] Comment on above: Performed By: #### C BC #### [facility] [address] [place] [address] Dr. Kerrie Russell IG # 0.02 10e3/ul Normal 0.00-0.03 [facility] Comment on above: Performed By: #### C BC #### [facility] [address] [place] [address] Dr. Kerrie Russell IG % 0.2 % Normal 0.0-0.5 [facility] Comment on above: Performed By: #### C BC #### [facility] [address] [place] [address] Dr. Kerrie Russell LYMPH # 4.3 103/ul Critically high 1.2-3.8 [facility] Comment on above: Performed By: #### C BC #### [facility] [address] [place] [address] Dr. Kerrie Russell Lymphocytes/100 WBC (Bld) 49.2 % Normal 20.5-60.0 [facility] Comment on above: Performed By: #### C BC #### [facility] [address] [place] [address] Dr. Kerrie Russell MANUAL DIFF REQ NO Normal [facility] Comment on above: Performed By: #### C BC #### [facility] [address] [place] [address] Dr. Kerrie Russell MCH (RBC) [Entitic mass] 28.3 pg Normal 26.7-34.0 [facility] Comment on above: Performed By: #### C BC #### [facility] [address] [place] [address] Dr. Kerrie Russell MCHC (RBC) [Mass/Vol] 34.0 g/dL Normal 29.9-35.2 [facility] Comment on above: Performed By: #### C BC #### [facility] [address] [place] [address] Dr. Kerrie Russell MCV (RBC) [Entitic vol] 83.2 fL Normal 81.0-99.0 [facility] Comment on above: Performed By: #### C BC #### [facility] [address] [place] [address] Dr. Kerrie Russell MONO # 0.5 103/ul Normal 0.3-0.8 [facility] Comment on above: Performed By: #### C BC #### [facility] [address] [place] [address] Dr. Kerrie Russell Monocytes/100 WBC (Bld) 5.9 % Normal 1.7-12.0 [facility] Comment on above: Performed By: #### C BC #### [facility] [address] [place] [address] Dr. Kerrie Russell NEUT # 3.7 103/ul Normal 1.4-6.5 [facility] Comment on above: Performed By: #### C BC #### [facility] [address] [place] [address] Dr. Kerrie Russell Neutrophils/100 WBC (Bld) 42.8 % Critically low 43.0-75.0 [facility] Comment on above: Performed By: #### C BC #### [facility] [address] [place] [address] Dr. Kerrie Russell Platelet mean volume (Bld) [Entitic vol] 9.6 fL Normal 9.5-13.5 [facility] Comment on above: Performed By: #### C BC #### [facility] [address] [place] [address] Dr. Kerrie Russell PLT 403 103/ul Normal 150-450 [facility] Comment on above: Performed By: #### C BC #### [facility] [address] [place] [address] Dr. Kerrie Russell RBC 4.88 106/ul Normal 4.20-5.40 [facility] Comment on above: Performed By: #### C BC #### [facility] [address] [place] [address] Dr. Kerrie Russell WBC 8.7 103/ul Normal 4.0-11.0 [facility] Comment on above: Performed By: #### C BC #### [facility] [address] [place] [address] Dr. Kerrie Russell FERRITINon 02-28-2022 Ferritin [Mass/Vol] 73.0 ng/mL Normal 6.2-137.0 [facility] Comment on above: Performed By: #### P HOS, MG, CMP #### [facility] [address] [place] [address] Dr. Kerrie Russell IRON AND TIBCon 02-28-2022 % SATURATION 12.4 % Normal [facility] Comment on above: Performed By: #### P HOS, MG, CMP #### [facility] [address] [place] [address] Dr. Kerrie Russell Iron [Mass/Vol] 44.0 ug/dL Critically low 50.0-170.0 [facility] Comment on above: Performed By: #### P HOS, MG, CMP #### [facility] [address] [place] [address] [address] Kerrie Russell TIBC DIRECT 354.0 ug/dL Normal 250.0-450.0 [facility] Comment on above: Performed By: #### P HOS, MG, CMP #### [facility] [address] [place] [address] Dr. Kerrie Russell MAGNESIUMon 02-28-2022 Magnesium [Mass/Vol] 1.9 mg/dL Normal 1.8-2.4 [facility] Comment on above: Performed By: #### M G, PHOS, CMP #### [facility] [address] [place] [address] Dr. Kerrie Russell PHOSPHORUSon 02-28-2022 Phosphate [Mass/Vol] 3.7 mg/dL Normal 2.6-4.7 [facility] Comment on above: Performed By: #### M G, PHOS, CMP #### [facility] [address] [place] [address] Dr. Kerrie Russell PROF 14(COMP METB)on 022 Albumin [Mass/Vol] 3.9 g/dL Normal 3.4-5.0 [facility] Comment on above: Performed By: #### M G, PHOS, CMP #### [facility] Laboratory [address] [place] [address] Dr. Kerrie Russell Albumin/Globulin [Mass ratio] 1.1 {ratio} Normal [facility] Comment on above: Performed By: #### M G, PHOS, CMP #### [facility] [address] [place] [address] Dr. Kerrie Russell ALP [Catalytic activity/Vol] 99 U/L Normal 46-116 [facility] Comment on above: Performed By: #### M Diasha PHOS, CMP #### [facility] [address] [place] [address] Dr. Kerrie Russell ALT [Catalytic activity/Vol] 32 U/L Normal 14-59 [facility] Comment on above: Performed By: #### M Daisha PHOS, CMP #### [facility] [address] [place] [address] Dr. Kerrie Russell Anion gap [Moles/Vol] 9.3 mmol/L Normal [facility] Comment on above: Performed By: #### Bryan Ashton PHOS, CMP #### [facility] [address] [place] [address] Dr. Kerrie Russell AST [Catalytic activity/Vol] 17 U/L Normal 15-37 [facility] Comment on above: Performed By: #### Bryan Ashton PHOS, CMP #### [facility] [address] [place] [address] Dr. Kerrie Russell Bilirubin [Mass/Vol] 0.2 mg/dL Normal 0.2-1.0 [facility] Comment on above: Performed By: #### Bryan Ashton PHOS, CMP #### [facility] [address] [place] [address] Dr. Kerrie Russell Calcium [Mass/Vol] 8.5 mg/dL Normal 8.5-10.1 [facility] Comment on above: Performed By: #### Bryan Ashton PHOS, CMP #### [facility] [address] [place] [address] Dr. Kerrie Russell Chloride [Moles/Vol] 107 mmol/L Normal 98-107 [facility] Comment on above: Performed By: #### Bryan Ashton PHOS, CMP #### [facility] [address] [place] [address] Dr. Kerrie Russell CO2 [Moles/Vol] 27.0 mmol/L Normal 21.0-32.0 [facility] Comment on above: Performed By: #### Bryan Ashton PHOS, CMP #### [facility] [address] [place], [place] [id number] Dr. Kerrie Russell Creatinine [Mass/Vol] 0.65 mg/dL Normal 0.55-1.02 [facility] Comment on above: Performed By: #### SUZANNE Cook, CMP #### [facility] [address] [address] [address] Kerrie Russell EGFR-AF BOLIVIAN >60 Normal >=60 [facility] Comment on above: Performed By: #### SUZANNE Cook, CMP #### [facility] [address] [address] [address] Kerrie Russell EGFR-NON AF BOLIVIAN >60 Normal >=60 [facility] Comment on above: Performed By: #### SUZANNE Cook, CMP #### [facility] [address] [place] [address] Dr. Kerrie Russell Globulin (S) [Mass/Vol] 3.6 g/dL Normal [facility] Comment on above: Performed By: #### SUZANNE Cook, CMP #### [facility] [address] [place] [address] Dr. Kerrie Russell Glucose [Mass/Vol] 89 mg/dL Normal 74-106 [facility] Comment on above: Performed By: #### SUZANNE Cook, CMP #### [facility] [address] [place] [address] Dr. Kerrie Russell Potassium [Moles/Vol] 3.3 mmol/L Critically low 3.5-5.1 [facility] Comment on above: Performed By: #### SUZANNE Cook, CMP #### [facility] [address] [place] [address] Dr. Kerrie Russell Protein [Mass/Vol] 7.5 g/dL Normal 6.4-8.2 [facility] Comment on above: Performed By: #### SUZANNE Cook, CMP #### [facility] [address] [address] [address] Kerrie Russell Sodium [Moles/Vol] 140 mmol/L Normal 136-145 [facility] Comment on above: Performed By: #### M G, PHOS, CMP #### [facility] [address] [address] [address] Kerrie Russell Urea nitrogen [Mass/Vol] 9.0 mg/dL Normal 7.0-18.0 [facility] Comment on above: Performed By: #### M Daisha PHOS, CMP #### [facility] [address] [place] [address] Dr. Kerrie Russell Urea nitrogen/Creatinine [Mass ratio] 13.8 mg/mg Normal [facility] Comment on above: Performed By: #### M NATHALY AshtonS, CMP #### [facility] [address] [place] [address] Dr. Kerrie Russell VIT B12 AND FOLATEon 022 Cobalamin (Vitamin B12) [Mass/Vol] 538.0 pg/mL Normal 193.0-986.0 [facility] Comment on above: Performed By: #### P HOS, MG, CMP #### [facility] [address] [place] [address] Dr. Kerrie Russell FOLATE 8.50 ng/mL Critically low 8.60-58.90 [facility] Comment on above: Performed By: #### P HOS, MG, CMP #### [facility] [address] [place] [address] Dr. Kerrie Russell VITAMIN D 25 OHon 02-28-2022 VIT D 25-OH 33.0 ng/mL Normal [facility] Comment on above: Performed By: #### P HOS, MG, CMP #### [facility] [address] [place] [address] Dr. Kerrie Russell VIT D RANGES SEE BELOW Normal [facility] Comment on above: Result Comment: <20 ng/mL Vit D deficient 20 - <30 ng/mL Vit D insufficient 30 - 100 ng/mL Vit D sufficient >100 ng/mL Potential Toxicity Performed By: #### P HOS, MG, CMP #### [facility] [address] [place] [address] Dr. Kerrie Russell Covid-19 PCR (CVDTB)on SARS-CoV-2 (COVID-19) RNA DEZ+probe Ql (Unsp spec) Not detected Normal NOT DETECTED [facility] Comment on above: Result Comment: This test is not yet approved or cleared by the [place] FDA. When there are no FDA-approved or cleared tests available, and other criteria are met, FDA can make tests available under an emergency access mechanism called an Emergency Use Authorization (EUA). The EUA for this test is supported by the [employer] of Health and Human Service's (HHS's) declaration [...] consistent with SARS-CoV-2. Performed By: #### [facility] #### [facility] [address] [place] [address] Dr. Kerrie Russell Covid-19 PCR ([facility])on SARS-CoV-2 (COVID-19) RNA DEZ+probe Ql (Unsp spec) Not detected Normal NOT DETECTED [facility] Comment on above: Result Comment: This test is not yet approved or cleared by the [place] FDA. When there are no FDA-approved or cleared tests available, and other criteria are met, FDA can make tests available under an emergency access mechanism called an Emergency Use Authorization (EUA). The EUA for this test is supported by the [employer] of Health and Human Service's (HHS's) declaration [...] By: #### P HOS, MG, CMP #### [facility] [address] [place] [address] Dr. Kerrie Russell VITAMIN B1 (THIAMINE)on 07-29 Vit. B1, Whole Blood 118.6 nmol/L Normal 66.5-200.0 Th e [facility] Comment on above: Performed By: #### C VDTBH #### [facility] [address] [place] [address] Dr. Kerrie Russell CBC AUTO DIFFon 08-11-2021 BASO # 0.0 103/ul Normal 0.0-0.1 [facility] Comment on above: Performed By: #### P HOS, MG, CMP #### [facility] [address] [place] [address] Dr. Kerrie Russell Basophils/100 WBC (Bld) 0.3 % Normal 0.2-2.0 [facility] Comment on above: Performed By: #### P HOS, MG, CMP #### [facility] [address] [place] [address] Dr. Kerrie Russell EO # 0.1 103/ul Normal 0.0-0.7 [facility] Comment on above: Performed By: #### P HOS, MG, CMP #### [facility] [address] [place] [address] Dr. Kerrie Russell Eosinophils/100 WBC (Bld) 1.5 % Normal 0.9-7.0 [facility] Comment on above: Performed By: #### P HOS, MG, CMP #### [facility] [address] [place] [address] Dr. Kerrie Russell Erythrocyte distribution width (RBC) [Ratio] 15.9 % Critically high 11.0-15.0 [facility] Comment on above: Performed By: #### P HOS, MG, CMP #### [facility] [address] [place] [address] Dr. Kerrie Russell Hematocrit (Bld) [Volume fraction] 34.2 % Critically low 36.0-48.0 [facility] Comment on above: Performed By: #### P HOS, MG, CMP #### [facility] [address] [address] [address] Kerrie Russell Hemoglobin (Bld) [Mass/Vol] 10.1 g/dL Critically low 12.0-16.0 [facility] Comment on above: Performed By: #### P HOS, MG, CMP #### [facility] [address] [place] [address] Dr. Kerrie Russell IG # 0.03 10e3/ul Normal 0.00-0.03 [facility] Comment on above: Performed By: #### P HOS, MG, CMP #### [facility] [address] [place] [address] Dr. Kerrie Russell IG % 0.3 % Normal 0.0-0.5 [facility] Comment on above: Performed By: #### P HOS, MG, CMP #### [facility] [address] [place] [address] Dr. Kerrie Russell LYMPH # 3.3 103/ul Normal 1.2-3.8 [facility] Comment on above: Performed By: #### P HOS, MG, CMP #### [facility] [address] [place] [address] Dr. Kerrie Russell Lymphocytes/100 WBC (Bld) 37.2 % Normal 20.5-60.0 [facility] Comment on above: Performed By: #### P HOS, MG, CMP #### [facility] [address] [place] [address] Dr. Kerrie Russell MANUAL DIFF REQ NO Normal [facility] Comment on above: Performed By: #### P HOS, MG, CMP #### [facility] [address] [place] [address] Dr. Kerrie Russell MCH (RBC) [Entitic mass] 20.7 pg Critically low 26.7-34.0 [facility] Comment on above: Performed By: #### P HOS, MG, CMP #### [facility] [address] [place] [address] Dr. Kerrie Russell MCHC (RBC) [Mass/Vol] 29.5 g/dL Critically low 29.9-35.2 [facility] Comment on above: Performed By: #### P HOS, MG, CMP #### [facility] [address] [place] [address] Dr. Kerrie Russell MCV (RBC) [Entitic vol] 70.1 fL Critically low 81.0-99.0 [facility] Comment on above: Performed By: #### P HOS, MG, CMP #### [facility] [address] [place] [address] Dr. Kerrie Russell MONO # 0.6 103/ul Normal 0.3-0.8 [facility] Comment on above: Performed By: #### P HOS, MG, CMP #### [facility] [address] [place] [address] Dr. Kerrie Russell Monocytes/100 WBC (Bld) 7.3 % Normal 1.7-12.0 [facility] Comment on above: Performed By: #### P HOS, MG, CMP #### [facility] [address] [place] [address] Dr. Kerrie Russell NEUT # 4.7 103/ul Normal 1.4-6.5 [facility] Comment on above: Performed By: #### P HOS, MG, CMP #### [facility] [address] [place] [address] Dr. Kerrie Russell Neutrophils/100 WBC (Bld) 53.4 % Normal 43.0-75.0 [facility] Comment on above: Performed By: #### P HOS, MG, CMP #### [facility] [address] [place] [address] Dr. Kerrie Russell Platelet mean volume (Bld) [Entitic vol] 9.1 fL Critically low 9.5-13.5 [facility] Comment on above: Performed By: #### P HOS, MG, CMP #### [facility] [address] [place] [address] Dr. Kerrie Russell PLT 339 103/ul Normal 150-450 [facility] Comment on above: Performed By: #### P HOS, MG, CMP #### [facility] [address] [address] [address] Kerrie Russell RBC 4.88 106/ul Normal 4.20-5.40 [facility] Comment on above: Performed By: #### P HOS, MG, CMP #### [facility] [address] [address] [address] Kerrie Russell WBC 8.8 103/ul Normal 4.0-11.0 [facility] Comment on above: Performed By: #### P HOS, MG, CMP #### [facility] [address] [address] [address] Kerrie Russell FERRITINon 08-11-2021 Ferritin [Mass/Vol] 4.0 ng/mL Critically low 6.2-137.0 [facility] Comment on above: Performed By: #### C VDTBH #### [facility] [address] [place] [address] Dr. Kerrie Russell IRON AND TIBCon 08-11-2021 % SATURATION 3.7 % Normal [facility] Comment on above: Performed By: #### C VDTBH #### [facility] [address] [address] [address] Kerrie Russell Iron [Mass/Vol] 19.0 ug/dL Critically low 37.0-170.0 [facility] Comment on above: Performed By: #### C VDTBH #### [facility] [address] [address] [address] Kerrie Russell TIBC DIRECT 513.0 ug/dL Critically high 261.0-497.0 [facility] Comment on above: Performed By: #### C VDTBH #### [facility] [address] [address] [address] Kerrie Russell MAGNESIUMon 08-11-2021 Magnesium [Mass/Vol] 2.0 mg/dL Normal 1.6-2.3 [facility] Comment on above: Performed By: #### P HOS, MG, CMP #### [facility] [address] [address] [address] Kerrie Russell PHOSPHORUSon 08-11-2021 Phosphate [Mass/Vol] 4.8 mg/dL Critically high 2.5-4.5 [facility] Comment on above: Performed By: #### P HOS, MG, CMP #### [facility] [address] [address] [address] Kerrie Russell PROF 14(COMP METB)on 022 Albumin [Mass/Vol] 3.8 g/dL Normal 3.4-5.0 [facility] Comment on above: Performed By: #### P HOS, MG, CMP #### [facility] [address] [address] [address] Kerrie Russell Albumin/Globulin [Mass ratio] 0.9 {ratio} Normal [facility] Comment on above: Performed By: #### P HOS, MG, CMP #### [facility] [address] [place] [address] Dr. Kerrie Russell ALP [Catalytic activity/Vol] 74 U/L Normal 46-116 [facility] Comment on above: Performed By: #### P HOS, MG, CMP #### [facility] [address] [place] [address] Dr. Kerrie Russell ALT [Catalytic activity/Vol] 15 U/L Normal 14-59 [facility] Comment on above: Performed By: #### P HOS, MG, CMP #### [facility] [address] [place] [address] Dr. Kerrie Russell Anion gap [Moles/Vol] 13.3 mmol/L Normal [facility] Comment on above: Performed By: #### P HOS, MG, CMP #### [facility] [address] [place] [address] Dr. Kerrie Russell AST [Catalytic activity/Vol] 11 U/L Critically low 15-37 [facility] Comment on above: Performed By: #### P HOS, MG, CMP #### [facility] [address] [place] [address] Dr. Kerrie Russell Bilirubin [Mass/Vol] 0.2 mg/dL Normal 0.2-1.3 [facility] Comment on above: Performed By: #### P HOS, MG, CMP #### [facility] [address] [address] [address] Kerrie Russell Calcium [Mass/Vol] 8.3 mg/dL Critically low 8.5-10.1 [facility] Comment on above: Performed By: #### P HOS, MG, CMP #### [facility] [address] [address] [address] Kerrie Russell Chloride [Moles/Vol] 104 mmol/L Normal 98-107 [facility] Comment on above: Performed By: #### P HOS, MG, CMP #### [facility] [address] [address] [address] Kerrie Russell CO2 [Moles/Vol] 26.5 mmol/L Normal 22.0-30.0 [facility] Comment on above: Performed By: #### P HOS, MG, CMP #### [facility] [address] [place] [address] Dr. Kerrie Russell Creatinine [Mass/Vol] 0.60 mg/dL Normal 0.52-1.04 [facility] Comment on above: Performed By: #### P HOS, MG, CMP #### [facility] [address] [place] [address] Dr. Kerrie Russell EGFR-AF BOLIVIAN >60 Normal >=60 [facility] Comment on above: Performed By: #### P HOS, MG, CMP #### [facility] [address] [place] [address] Dr. Kerrie Russell EGFR-NON AF BOLIVIAN >60 Normal >=60 [facility] Comment on above: Performed By: #### P HOS, MG, CMP #### [facility] [address] [place] [address] Dr. Kerrie Russell Globulin (S) [Mass/Vol] 4.1 g/dL Normal [facility] Comment on above: Performed By: #### P HOS, MG, CMP #### [facility] [address] [place] [address] Dr. Kerrie Russell Glucose [Mass/Vol] 93 mg/dL Normal 74-106 [facility] Comment on above: Performed By: #### P HOS, MG, CMP #### [facility] [address] [place] [address] Dr. Kerrie Russell Potassium [Moles/Vol] 3.8 mmol/L Normal 3.4-5.0 [facility] Comment on above: Performed By: #### P HOS, MG, CMP #### [facility] [address] [place] [address] Dr. Kerrie Russell Protein [Mass/Vol] 7.9 g/dL Normal 6.1-8.2 [facility] Comment on above: Performed By: #### P HOS, MG, CMP #### [facility] [address] [place] [address] Dr. Kerrie Russell Sodium [Moles/Vol] 140 mmol/L Normal 137-145 [facility] Comment on above: Performed By: #### P HOS, MG, CMP #### [facility] [address] [place] [address] Dr. Kerrie Russell Urea nitrogen [Mass/Vol] 14.0 mg/dL Normal 7.0-18.0 [facility] Comment on above: Performed By: #### P HOS, MG, CMP #### [facility] [address] [place] [address] Dr. Kerrie Russell Urea nitrogen/Creatinine [Mass ratio] 23.3 mg/mg Normal [facility] Comment on above: Performed By: #### P HOS, MG, CMP #### [facility] [address] [place] [address] Dr. Kerrie Russell VIT B12 AND FOLATEon 022 Cobalamin (Vitamin B12) [Mass/Vol] 546.0 pg/mL Normal 239.0-931.0 [facility] Comment on above: Performed By: #### C VDTBH #### [facility] [address] [place] [address] Dr. Kerrie Russell FOLATE 17.80 ng/mL Normal >=2.76 [facility] Comment on above: Performed By: #### C VDTBH #### [facility] [address] [place] [address] Dr. Kerrie Russell VITAMIN D 25 OHon 08-11-2021 VIT D 25-OH 35.1 ng/mL Normal [facility] Comment on above: Performed By: #### C VDTBH #### [facility] [address] [place] [address] Dr. Kerrie Russell VIT D RANGES SEE BELOW Normal [facility] Comment on above: Result Comment: <20 ng/mL Vit D deficient 20 - <30 ng/mL Vit D insufficient 30 - 100 ng/mL Vit D sufficient >100 ng/mL Potential Toxicity Performed By: #### C VDTBH #### [facility] [address] [place], [place] [address] Dr. Kerrie Russell XR KUB 1 VIEWon [...] by: MELLISSA SEGAL Date: 2021-08-11 09:44 Normal [facility] Complete Blood Count with Au to Diffon 07-12-2021 Basophils (Bld) [#/Vol] 0.01 10*3/uL Normal 0.00-0.20 [facility] [employer] Comment on above: Performed By: #### F ERR, CBCAD, FE Prof, smear, CMP #### [facility] [address], [place] [id number] Basophils/100 WBC (Bld) 0.2 % Normal [facility] [employer] Comment on above: Performed By: #### F ERR, CBCAD, FE Prof, smear, CMP #### [facility] [address], [place] [id number] Eosinophils (Bld) [#/Vol] 0.14 10*3/uL Normal 0.02-0.50 [facility] [employer] Comment on above: Performed By: #### F ERR, CBCAD, FE Prof, smear, CMP #### [facility] [address], [place] [id number] Eosinophils/100 WBC (Bld) 2.8 % Normal [facility] Comment on above: Performed By: #### F ERR, CBCAD, FE Prof, smear, CMP #### [facility] [address], [place] [id number] Erythrocyte distribution width (RBC) [Ratio] 17.0 % High 11.0-15.0 [facility] Comment on above: Performed By: #### F ERR, CBCAD, FE Prof, smear, CMP #### [facility] [address], [place] [id number] Hematocrit (Bld) [Volume fraction] 34.8 % Low 35.0-47.0 [facility] Comment on above: Performed By: #### F ERR, CBCAD, FE Prof, smear, CMP #### [facility] [address], [place] [id number] Hemoglobin (Bld) [Mass/Vol] 9.8 g/dL Low 11.6-15.5 [facility] Comment on above: Performed By: #### F ERR, CBCAD, FE Prof, smear, CMP #### [facility] [address], [place] [id number] Lymphocytes (Bld) [#/Vol] 2.1 10*3/uL Normal 0.9-3.9 [facility] [employer] Comment on above: Performed By: #### F ERR, CBCAD, FE Prof, smear, CMP #### [facility] [address], [place] [id number] Lymphocytes/100 WBC (Bld) 42.3 % Normal [facility] Comment on above: Performed By: #### F ERR, CBCAD, FE Prof, smear, CMP #### [facility] [address], [place] [id number] MCH (RBC) [Entitic mass] 20.3 pg Low 27.0-33.0 [facility] [employer] Comment on above: Performed By: #### F ERR, CBCAD, FE Prof, smear, CMP #### [facility] [address] [place], [place] [id number] MCHC (RBC) [Mass/Vol] 28.2 g/dL Low 32.0-36.0 [facility] Comment on above: Performed By: #### F ERR, CBCAD, FE Prof, smear, CMP #### [facility] [address], [place] [id number] MCV (RBC) [Entitic vol] 72 fL Low 80-100 [facility] Comment on above: Performed By: #### F ERR, CBCAD, FE Prof, smear, CMP #### [facility] [address], [place] [id number] Monocytes (Bld) [#/Vol] 0.6 10*3/uL Normal 0.2-0.9 [facility] Comment on above: Performed By: #### F ERR, CBCAD, FE Prof, smear, CMP #### [facility] [address], [place] [id number] Monocytes/100 WBC (Bld) 11.4 % Normal [facility] Comment on above: Performed By: #### F ERR, CBCAD, FE Prof, smear, CMP #### [facility] [address], [place] [id number] Neutrophils (Bld) [#/Vol] 2.1 10*3/uL Normal 1.5-7.8 [facility] Comment on above: Performed By: #### F ERR, CBCAD, FE Prof, smear, CMP #### [facility] [address], [place] [id number] Neutrophils/100 WBC (Bld) 42.9 % Normal [facility] Comment on above: Performed By: #### F ERR, CBCAD, FE Prof, smear, CMP #### [facility] [address], [place] [id number] Platelet mean volume (Bld) [Entitic vol] 10.10 fL Normal 7.50-12.50 [facility] Comment on above: Performed By: #### F ERR, CBCAD, FE Prof, smear, CMP #### [facility] [address], [place] [id number] Platelets (Bld) [#/Vol] 368 10*3/uL Normal 140-400 [facility] Comment on above: Performed By: #### F ERR, CBCAD, FE Prof, smear, CMP #### [facility] [address], [place] [id number] RBC (Bld) [#/Vol] 4.82 10*6/uL Normal 3.90-5.20 [facility] Comment on above: Performed By: #### F ERR, CBCAD, FE Prof, smear, CMP #### [facility] [address], [place] [id number] RDW-SD 43.4 fL Normal 37.0-50.0 [facility] Comment on above: Performed By: #### F ERR, CBCAD, FE Prof, smear, CMP #### [facility] [address], [place] [id number] REFLEX Smear Review Normal [facility] Comment on above: Performed By: #### F ERR, CBCAD, FE Prof, smear, CMP #### [facility] [address], [place] [id number] WBC (Bld) [#/Vol] 4.9 10*3/uL Normal 3.8-11.0 [facility] [employer] Comment on above: Performed By: #### F ERR, CBCAD, FE Prof, smear, CMP #### [facility] [address] [place] [id number] Comprehensive Metabolic Pane celestino 07-12-2021 Albumin [Mass/Vol] 4.5 g/dL Normal 3.6-5.1 [facility] [employer] Comment on above: Performed By: #### F ERR, CBCAD, FE Prof, smear, CMP #### [facility] [address] [place], [place] [id number] Albumin/Globulin [Mass ratio] 1.7 {ratio} Normal 1.0-2.5 [facility] [employer] Comment on above: Performed By: #### F ERR, CBCAD, FE Prof, smear, CMP #### [facility] [address] [place], [place] [id number] ALP [Catalytic activity/Vol] 80 U/L Normal 35-119 [facility] [employer] Comment on above: Performed By: #### F ERR, CBCAD, FE Prof, smear, CMP #### [facility] [address] [place], [place] [id number] ALT [Catalytic activity/Vol] 12 U/L Normal 6-33 [facility] Comment on above: Result Comment: 03/29 Female reference range changed. Performed By: #### F ERR, CBCAD, FE Prof, smear, CMP #### [facility] [address] [place], [place] [id number] Anion gap [Moles/Vol] 18 mmol/L Normal 12-20 [facility] Comment on above: Result Comment: Effe ctive 05/04/2019 reference range changed. Performed By: #### F ERR, CBCAD, FE Prof, smear, CMP #### [facility] [address] [place], [place] [id number] AST [Catalytic activity/Vol] 20 U/L Normal 9-34 [facility] Comment on above: Performed By: #### F ERR, CBCAD, FE Prof, smear, CMP #### [facility] [address] [place], [place] [id number] BUN/CREA 19 Ratio Normal 6-22 [facility] Comment on above: Performed By: #### F ERR, CBCAD, FE Prof, smear, CMP #### [facility] [address] [place], [place] [id number] Calcium [Mass/Vol] 8.8 mg/dL Normal 8.6-10.2 [facility] Comment on above: Performed By: #### F ERR, CBCAD, FE Prof, smear, CMP #### [facility] [address] [place], [place] [id number] Chloride [Moles/Vol] 104 mmol/L Normal 98-107 [facility] Comment on above: Performed By: #### F ERR, CBCAD, FE Prof, smear, CMP #### [facility] [address] [place], [place] [id number] CO2 [Moles/Vol] 22 mmol/L Normal 20-31 [facility] Comment on above: Performed By: #### F ERR, CBCAD, FE Prof, smear, CMP #### [facility] [address] [place], [place] [id number] Creatinine [Mass/Vol] 0.6 mg/dL Normal 0.6-1.4 [facility] Comment on above: Performed By: #### F ERR, CBCAD, FE Prof, smear, CMP #### [facility] [address] [place], [place] [id number] eGFRAA 155 mL/min/1.73m2 Normal >60 [facility] Comment on above: Performed By: #### F ERR, CBCAD, FE Prof, smear, CMP #### [facility] [address] [place], [place] [id number] eGFRNAA 128 mL/min/1.73m2 Normal >60 [facility] Comment on above: Performed By: #### F ERR, CBCAD, FE Prof, smear, CMP #### [facility] [address] [place], [place] [id number] Globulin (S) [Mass/Vol] 2.6 g/dL Normal 1.9-3.7 [facility] Comment on above: Performed By: #### F ERR, CBCAD, FE Prof, smear, CMP #### [facility] [address] [place], [place] [id number] Glucose [Mass/Vol] 80 mg/dL Normal 65-99 [facility] [employer] Operator Comment on above: Result Comment: For FASTING Glucose --- ADA reference ranges: Normal 65-99 mg/dl Prediabetes 100-125 Diabetes >/= 126 Performed By: #### F ERR, CBCAD, FE Prof, smear, CMP #### [facility] [address] [place], [place] [id number] Potassium [Moles/Vol] 4.2 mmol/L Normal 3.5-5.5 [facility] Comment on above: Performed By: #### F ERR, CBCAD, FE Prof, smear, CMP #### [facility] [address] [place], [place] [id number] Protein [Mass/Vol] 7.1 g/dL Normal 6.1-8.1 [facility] [employer] Comment on above: Performed By: #### F ERR, CBCAD, FE Prof, smear, CMP #### [facility] [address] [place], [place] [id number] Sodium [Moles/Vol] 139 mmol/L Normal 135-146 [facility] Comment on above: Performed By: #### F ERR, CBCAD, FE Prof, smear, CMP #### [facility] [address] [place], [place] [id number] TBIL <0.3 Normal [facility] Comment on above: Performed By: #### F ERR, CBCAD, FE Prof, smear, CMP #### [facility] [address] [place], [place] [id number] Urea nitrogen [Mass/Vol] 11 mg/dL Normal 7-25 [facility] Comment on above: Performed By: #### F ERR, CBCAD, FE Prof, smear, CMP #### [facility] [address] [place], [place] [id number] Ferritinon 07-12-2021 FERR 12.1 ng/mL Low 15.0-150.0 [facility] Comment on above: Performed By: #### F ERR, CBCAD, FE Prof, smear, CMP #### [facility] [address] [place], [place] [id number] Iron Profileon 07-12-2021 %FESAT 6 % Low 11-50 [facility] Comment on above: Performed By: #### F ERR, CBCAD, FE Prof, smear, CMP #### [facility] [address] [place], [place] [id number] FE 25 ug/dL Low 40-190 [facility] Comment on above: Result Comment: Refe rence range change 03/15/2017. Prior reference range F 37-145 ug/dL, M 59-158 ug/dL. Performed By: #### F ERR, CBCAD, FE Prof, smear, CMP #### [facility] [address] [place], [place] [id number] TIBC 441 ug/dL Normal 250-450 [facility] Comment on above: Performed By: #### F ERR, CBCAD, FE Prof, smear, CMP #### [facility] [address] [place], [place] [id number] UIBC 416 ug/dL High 112-347 [facility] Comment on above: Performed By: #### F ERR, CBCAD, FE Prof, smear, CMP #### [facility] [address] [place], [place] [id number] Smear Reviewon 07-12-2021 PLT EST Adequate Normal [facility] Comment on above: Performed By: #### F ERR, CBCAD, FE Prof, smear, CMP #### [facility] [address] [place], [place] [id number] RBC morphology finding Nom (Bld) RBC morphology review confirms RBC indices Normal [facility] Comment on above: Performed By: #### F ERR, CBCAD, FE Prof, smear, CMP #### [facility] [address] [place], [place] [id number] CBC AUTO DIFFon 05-13-2021 BASO # 0.0 103/ul Normal 0.0-0.1 [facility] Comment on above: Performed By: #### C BC #### [facility] [address] [place] [address] Dr. Kerrie Russell Basophils/100 WBC (Bld) 0.1 % Critically low 0.2-2.0 [facility] Comment on above: Performed By: #### C BC #### [facility] [address] [place] [address] Dr. Kerrie Russell EO # 0.0 103/ul Normal 0.0-0.7 [facility] Comment on above: Performed By: #### C BC #### [facility] [address] [address] [address] Kerrie Russell Eosinophils/100 WBC (Bld) 0.0 % Critically low 0.9-7.0 [facility] Comment on above: Performed By: #### C BC #### [facility] [address] [place] [address] Dr. Kerrie Russell Erythrocyte distribution width (RBC) [Ratio] 15.0 % Normal 11.0-15.0 [facility] Comment on above: Performed By: #### C BC #### [facility] [address] [place] [address] Dr. Kerrie Russell Hematocrit (Bld) [Volume fraction] 25.2 % Critically low 36.0-48.0 [facility] Comment on above: Performed By: #### C BC #### [facility] [address] [place] [address] Dr. Kerrie Russell Hemoglobin (Bld) [Mass/Vol] 7.6 g/dL Critically low 12.0-16.0 [facility] Comment on above: Result Comment: Post delivery Performed By: #### C BC #### [facility] [address] [place] [address] Dr. Kerrie Russell IG # 0.08 10e3/ul Critically high 0.00-0.03 [facility] Comment on above: Performed By: #### C BC #### [facility] [address] [place] [address] Dr. Kerrie Russell IG % 1.0 % Critically high 0.0-0.5 [facility] Comment on above: Performed By: #### C BC #### [facility] [address] [place] [address] Dr. Kerrie Russell LYMPH # 2.2 103/ul Normal 1.2-3.8 [facility] Comment on above: Performed By: #### C BC #### [facility] [address] [place] [address] Dr. Kerrie Russell Lymphocytes/100 WBC (Bld) 26.5 % Normal 20.5-60.0 [facility] Comment on above: Performed By: #### C BC #### [facility] [address] [place] [address] Dr. Kerrie Russell MANUAL DIFF REQ NO Normal [facility] Comment on above: Performed By: #### C BC #### [facility] [address] [place] [address] Dr. Kerrie Russell MCH (RBC) [Entitic mass] 21.7 pg Critically low 26.7-34.0 [facility] Comment on above: Performed By: #### C BC #### [facility] [address] [place] [address] Dr. Kerrie Russell MCHC (RBC) [Mass/Vol] 30.2 g/dL Normal 29.9-35.2 [facility] Comment on above: Performed By: #### C BC #### [facility] [address] [place] [address] Dr. Kerrie Russell MCV (RBC) [Entitic vol] 72.0 fL Critically low 81.0-99.0 [facility] Comment on above: Performed By: #### C BC #### [facility] [address] [place] [address] Dr. Kerrie Russell MONO # 0.7 103/ul Normal 0.3-0.8 [facility] Comment on above: Performed By: #### C BC #### [facility] [address] [place] [address] Dr. Kerrie Russell Monocytes/100 WBC (Bld) 9.1 % Normal 1.7-12.0 [facility] Comment on above: Performed By: #### C BC #### [facility] [address] [place] [address] Dr. Kerrie Russell NEUT # 5.1 103/ul Normal 1.4-6.5 [facility] Comment on above: Performed By: #### C BC #### [facility] [address] [place] [address] Dr. Kerrie Russell Neutrophils/100 WBC (Bld) 63.3 % Normal 43.0-75.0 [facility] Comment on above: Performed By: #### C BC #### [facility] [address] [place] [address] Dr. Kerrie Russell Platelet mean volume (Bld) [Entitic vol] 10.1 fL Normal 9.5-13.5 [facility] Comment on above: Performed By: #### C BC #### [facility] [address] [place] [address] Dr. Kerrie Russell PLT 181 103/ul Normal 150-450 [facility] Comment on above: Performed By: #### C BC #### [facility] [address] [place] [address] Dr. Kerrie Russell RBC 3.50 106/ul Critically low 4.20-5.40 [facility] Comment on above: Performed By: #### C BC #### [facility] [address] [place] [address] Dr. Kerrie Russell WBC 8.1 103/ul Normal 4.0-11.0 [facility] Comment on above: Performed By: #### C BC #### [facility] [address] [place] [address] Dr. Kerrie Russell CBC AUTO DIFFon 05-11-2021 BASO # 0.0 103/ul Normal 0.0-0.1 [facility] Comment on above: Performed By: #### C VDTBH #### [facility] [address] [place] [address] Dr. Kerrie Russell Basophils/100 WBC (Bld) 0.4 % Normal 0.2-2.0 [facility] Comment on above: Performed By: #### C VDTBH #### [facility] [address] [place] [address] Dr. Kerrie Russell EO # 0.0 103/ul Normal 0.0-0.7 [facility] Comment on above: Performed By: #### C VDTBH #### [facility] [address] [place] [address] Dr. Kerrie Russell Eosinophils/100 WBC (Bld) 0.3 % Critically low 0.9-7.0 [facility] Comment on above: Performed By: #### C VDTBH #### [facility] [address] [place] [address] Dr. Kerrie Russell Erythrocyte distribution width (RBC) [Ratio] 14.8 % Normal 11.0-15.0 [facility] Comment on above: Performed By: #### C VDTBH #### [facility] [address] [place] [address] Dr. Kerrie Russell Hematocrit (Bld) [Volume fraction] 31.2 % Critically low 36.0-48.0 [facility] Comment on above: Performed By: #### C VDTBH #### [facility] [address] [place] [address] Dr. Kerrie Russell Hemoglobin (Bld) [Mass/Vol] 9.6 g/dL Critically low 12.0-16.0 [facility] Comment on above: Performed By: #### C VDTBH #### [facility] [address] [place] [address] Dr. Kerrie Russell IG # 0.07 10e3/ul Critically high 0.00-0.03 [facility] Comment on above: Performed By: #### C VDTBH #### [facility] [address] [place] [address] Dr. Kerrie Russell IG % 1.0 % Critically high 0.0-0.5 [facility] Comment on above: Performed By: #### C VDTBH #### [facility] [address] [place] [address] Dr. Kerrie Russell LYMPH # 1.5 103/ul Normal 1.2-3.8 [facility] Comment on above: Performed By: #### C VDTBH #### [facility] [address] [place] [address] Dr. Kerrie Russell Lymphocytes/100 WBC (Bld) 21.7 % Normal 20.5-60.0 [facility] Comment on above: Performed By: #### C VDTBH #### [facility] [address] [place] [address] Dr. Kerrie Russell MANUAL DIFF REQ NO Normal [facility] Comment on above: Performed By: #### C VDTBH #### [facility] [address] [place] [address] Dr. Kerrie Russell MCH (RBC) [Entitic mass] 21.8 pg Critically low 26.7-34.0 [facility] Comment on above: Performed By: #### C VDTBH #### [facility] [address] [place] [address] Dr. Kerrie Russell MCHC (RBC) [Mass/Vol] 30.8 g/dL Normal 29.9-35.2 [facility] Comment on above: Performed By: #### C VDTBH #### [facility] [address] [place] [address] Dr. Kerrie Russell MCV (RBC) [Entitic vol] 70.7 fL Critically low 81.0-99.0 [facility] Comment on above: Performed By: #### C VDTBH #### [facility] [address] [place] [address] Dr. Kerrie Russell MONO # 0.7 103/ul Normal 0.3-0.8 [facility] Comment on above: Performed By: #### C VDTBH #### [facility] [address] [place] [address] Dr. Kerrie Russell Monocytes/100 WBC (Bld) 9.7 % Normal 1.7-12.0 [facility] Comment on above: Performed By: #### C VDTBH #### [facility] [address] [place] [address] Dr. Kerrie Russell NEUT # 4.7 103/ul Normal 1.4-6.5 [facility] Comment on above: Performed By: #### C VDTBH #### [facility] [address] [place] [address] Dr. Kerrie Russell Neutrophils/100 WBC (Bld) 66.9 % Normal 43.0-75.0 [facility] Comment on above: Performed By: #### C VDTBH #### [facility] [address] [place] [address] Dr. Kerrie Russell Platelet mean volume (Bld) [Entitic vol] 10.0 fL Normal 9.5-13.5 [facility] Comment on above: Performed By: #### C VDTBH #### [facility] [address] [place] [address] Dr. Kerrie Russell PLT 272 103/ul Normal 150-450 [facility] Comment on above: Performed By: #### C VDTBH #### [facility] [address] [place] [address] Dr. Kerrie Russell RBC 4.41 106/ul Normal 4.20-5.40 [facility] Comment on above: Performed By: #### C VDTBH #### [facility] [address] [address] [address] Kerrie Russell WBC 7.0 103/ul Normal 4.0-11.0 [facility] Comment on above: Performed By: #### C VDTBH #### [facility] [address] [place] [address] Dr. Kerrie uRssell Covid-19 PCR ([facility])on 04-29 SARS-CoV-2 (COVID-19) RNA DEZ+probe Ql (Unsp spec) Detected Critically abnormal NOT DETECTED [facility] Comment on above: Result Comment: This test is not yet approved or cleared by the [place] FDA. When there are no FDA-approved or cleared tests available, and other criteria are met, FDA can make tests available under an emergency access mechanism called an Emergency Use Authorization (EUA). The EUA for this test is supported by the [employer] of Health and Human Service's declaration that [...] used). Performed By: #### C VDTBH #### [facility] [address] [place] [address] Dr. Kerrie Russell DRUG SCREEN RAPID (URINE)on 05-11-2021 AMP Negative Normal NEGATIVE [facility] Comment on above: Performed By: #### C VDTBH #### [facility] [address] [place] [address] Dr. Kerrie Russell BAR Negative Normal NEGATIVE [facility] Comment on above: Performed By: #### C VDTBH #### [facility] [address] [place] [address] Dr. Kerrie Russell BUP Negative Normal NEGATIVE [facility] Comment on above: Performed By: #### C VDTBH #### [facility] [address] [place] [address] Dr. Kerrie Russell BZO Negative Normal NEGATIVE [facility] Comment on above: Performed By: #### C VDTBH #### [facility] [address] [place] [address] Dr. Kerrie Russell ESTRELLA Negative Normal NEGATIVE [facility] Comment on above: Performed By: #### C VDTBH #### [facility] [address] [place] [address] Dr. Kerrie Russell CUT-OFFS SEE BELOW Normal [facility] Comment on above: Result Comment: AMP [...] ng/mL Performed By: #### C VDTBH #### [facility] [address] [place] [address] Dr. Kerrie Russell DRUG CUT HEADER DRUG CLASS TEST SYSTEM CUT-OFF CONCENTRATIONS ARE FOLLOWS: Normal [facility] Comment on above: Performed By: #### C VDTBH #### [facility] [address] [place] [address] Dr. Kerrie Russell mAMP Negative Normal NEGATIVE [facility] Comment on above: Performed By: #### C VDTBH #### [facility] [address] [place] [address] Dr. Kerrie Russell MTD Negative Normal NEGATIVE [facility] Comment on above: Performed By: #### C VDTBH #### [facility] [address] [place] [address] Dr. Kerrie Russell OPI Negative Normal NEGATIVE [facility] Comment on above: Performed By: #### C VDTBH #### [facility] [address] [place] [address] Dr. Kerrie Russell OXY Negative Normal NEGATIVE [facility] Comment on above: Performed By: #### C VDTBH #### [facility] [address] [address] [address] Kerrie Russell PCP Negative Normal NEGATIVE [facility] Comment on above: Performed By: #### C VDTBH #### [facility] [address] [address] [address] Kerrie Russell PPX Negative Normal NEGATIVE [facility] Comment on above: Performed By: #### C VDTBH #### [facility] [address] [address] [address] Kerrie Russell TCA Negative Normal NEGATIVE [facility] Comment on above: Performed By: #### C VDTBH #### [facility] [address] [place] [address] Dr. Kerrie Russell THC Negative Normal NEGATIVE [facility] Comment on above: Performed By: #### C VDTBH #### [facility] [address] [place] [address] Dr. Kerrie Russell TYPE AND SCREENon 05-11-2021 TYPE AND SCREEN Negative Normal [facility] Comment on above: Performed By: #### P HOS, MG, CMP #### [facility] [address] [place] [address] Dr. Kerrie Russell Complete Blood Count Auto Di ffon 07-25-2020 Basophils (Bld) [#/Vol] 0.1 10*3/uL Normal 0.0-0.2 [facility] Comment on above: Result Comment: PERF ORMED BY: [facility] [address] [place] [address] PATHOLOGIST TURPENTINE FARMER TOLU MANUEL M.D. Performed By: #### F E PRO, [id number], CMP, MG, [id number], PHOS, CBC #### [facility] [address] [place] [address] [place] #### VITB1 #### [facility] , Basophils/100 WBC (Bld) 0.7 % Normal . [facility] Comment on above: Performed By: #### F E PRO, [id number], CMP, MG, [id number], PHOS, CBC #### [address] #### VITB1 #### [facility] , Eosinophils (Bld) [#/Vol] 0.1 10*3/uL Normal 0.0-0.45 [facility] Comment on above: Performed By: #### F E PRO, [id number], CMP, MG, [id number], PHOS, CBC #### [address] #### VITB1 #### [facility] , Eosinophils/100 WBC (Bld) 1.6 % Normal . [facility] Comment on above: Performed By: #### F E PRO, [id number], CMP, MG, [id number], PHOS, CBC #### [address] #### VITB1 #### [facility] , Erythrocyte distribution width (RBC) [Ratio] 13.0 % Normal 11.9-15.3 [facility] Comment on above: Performed By: #### F E PRO, [id number], CMP, MG, [id number], PHOS, CBC #### [address] #### VITB1 #### [facility] , Hematocrit (Bld) [Volume fraction] 38.3 % Normal 34.0-46.4 [facility] Comment on above: Performed By: #### F E PRO, [id number], CMP, MG, [id number], PHOS, CBC #### [place] [address] [place] #### VITB1 #### [facility] , Hemoglobin (Bld) [Mass/Vol] 12.9 g/dL Normal 11.8-15.4 [facility] Comment on above: Performed By: #### F E PRO, [id number], CMP, MG, [id number], PHOS, CBC #### [address] #### VITB1 #### [facility] , Lymphocytes (Bld) [#/Vol] 4.6 10*3/uL Normal 1.00-4.8 [facility] Comment on above: Performed By: #### F E PRO, [id number], CMP, MG, [id number], PHOS, CBC #### [address] #### VITB1 #### [facility] , Lymphocytes/100 WBC (Bld) 49.5 % Normal . [facility] Comment on above: Performed By: #### F E PRO, [id number], CMP, MG, [id number], PHOS, CBC #### [address] #### VITB1 #### [facility] , MCH (RBC) [Entitic mass] 28.6 pg Normal 24.7-34.3 [facility] Comment on above: Performed By: #### F E PRO, [id number], CMP, MG, [id number], PHOS, CBC #### [address] #### VITB1 #### [facility] , MCV (RBC) [Entitic vol] 84.5 fL Normal 80-100 [facility] Comment on above: Performed By: #### F E PRO, [id number], CMP, MG, [id number], PHOS, CBC #### [facility] [address] [place] [address] [place] #### VITB1 #### [facility] , Mean Corpuscular HGB Conc 33.8 g/dL Normal 32.0-35.0 [facility] Comment on above: Performed By: #### F E PRO, [id number], CMP, MG, [id number], PHOS, CBC #### [address] #### VITB1 #### [facility] , Monocytes (Bld) [#/Vol] 0.7 10*3/uL Normal 0.0-0.8 [facility] Comment on above: Performed By: #### F E PRO, [id number], CMP, MG, [id number], PHOS, CBC #### [address] #### VITB1 #### [facility] , Monocytes/100 WBC (Bld) 7.5 % Normal . [facility] Comment on above: Performed By: #### F E PRO, [id number], CMP, MG, [id number], PHOS, CBC #### [address] #### VITB1 #### [facility] , Neutrophils (Bld) [#/Vol] 3.8 10*3/uL Normal 1.8-7.7 [facility] Comment on above: Performed By: #### F E PRO, [id number], CMP, MG, [id number], PHOS, CBC #### [address] #### VITB1 #### [facility] , Neutrophils/100 WBC (Bld) 40.7 % Normal . [facility] Comment on above: Performed By: #### F E PRO, [id number], CMP, MG, [id number], PHOS, CBC #### [place] [address] [place] #### VITB1 #### [facility] , Nucleated RBC/100 WBC (Bld) [Ratio] 0.4 % Normal 0-0.5 [facility] Comment on above: Performed By: #### F E PRO, [id number], CMP, MG, [id number], PHOS, CBC #### [facility] [address] [place] [address] #### VITB1 #### [facility] , Platelet mean volume (Bld) [Entitic vol] 7.8 fL Normal 6.3-10.7 [facility] Comment on above: Performed By: #### F E PRO, [id number], CMP, MG, [id number], PHOS, CBC #### [address] #### VITB1 #### [facility] , Platelets (Bld) [#/Vol] 354 10*3/uL Normal 150-450 [facility] Comment on above: Performed By: #### F E PRO, [id number], CMP, MG, [id number], PHOS, CBC #### [address] #### VITB1 #### [facility] , RBC (Bld) [#/Vol] 4.53 10*6/uL Normal 3.60-5.00 [facility] Comment on above: Performed By: #### F E PRO, [id number], CMP, MG, [id number], PHOS, CBC #### [address] #### VITB1 #### [facility] , WBC (Bld) [#/Vol] 9.3 10*3/uL Normal 4.5-11.0 [facility] Comment on above: Performed By: #### F E PRO, [id number], CMP, MG, [id number], PHOS, CBC #### [facility] [address] [place] [address] [place] #### VITB1 #### [facility] , Comprehensive Metabolic Pane celestino 07-25-2020 Albumin [Mass/Vol] 4.0 g/dL Normal 3.2-5.5 [facility] Comment on above: Performed By: #### F E PRO, [id number], CMP, MG, [id number], PHOS, CBC #### [facility] [address] [place] [address] #### VITB1 #### [facility] , Albumin/Globulin [Mass ratio] 1.4 {ratio} Normal [facility] Comment on above: Performed By: #### F E PRO, [id number], CMP, MG, [id number], PHOS, CBC #### [facility] [address] [place] [address] #### VITB1 #### [facility] , ALP [Catalytic activity/Vol] 58 U/L Normal 32-92 [facility] Comment on above: Performed By: #### F E PRO, [id number], CMP, MG, [id number], PHOS, CBC #### [facility] [address] [place] [address] #### VITB1 #### [facility] , ALT [Catalytic activity/Vol] 12 U/L Normal 10-60 [facility] Comment on above: Performed By: #### F E PRO, [id number], CMP, MG, [id number], PHOS, CBC #### [facility] [address] [place] [address] [place] #### VITB1 #### [facility] , AST [Catalytic activity/Vol] 19 U/L Normal 10-42 [facility] Comment on above: Performed By: #### F E PRO, [id number], CMP, MG, [id number], PHOS, CBC #### [facility] [address] [place] [address] [place] #### VITB1 #### [facility] , Bilirubin [Mass/Vol] 0.5 mg/dL Normal 0.3-1.2 [facility] Comment on above: Performed By: #### F E PRO, [id number], CMP, MG, [id number], PHOS, CBC #### [facility] [address] [place] [address] #### VITB1 #### [facility] , Calcium [Mass/Vol] 9.0 mg/dL Normal 8.2-10.2 [facility] Comment on above: Performed By: #### F E PRO, [id number], CMP, MG, [id number], PHOS, CBC #### [facility] [address] [place] [address] #### VITB1 #### [facility] , Chloride [Moles/Vol] 100 mmol/L Normal 95-114 [facility] Comment on above: Performed By: #### F E PRO, [id number], CMP, MG, [id number], PHOS, CBC #### [facility] [address] [place] [address] #### VITB1 #### [facility] , CO2 [Moles/Vol] 27.3 mmol/L Normal 22.0-30.0 [facility] Comment on above: Performed By: #### F E PRO, [id number], CMP, MG, [id number], PHOS, CBC #### [facility] [address] [place] [address] #### VITB1 #### [facility] , Creatinine [Mass/Vol] 0.59 mg/dL Normal 0.44-1.03 [facility] Comment on above: Performed By: #### F E PRO, [id number], CMP, MG, [id number], PHOS, CBC #### [facility] [address] [place] [address] #### VITB1 #### [facility] , Estimated GFR ( Monica > 60 Normal [facility] Comment on above: Result Comment: GFR estimated reference range: According to KDOQI guidelines, <60 ml/min/1.73m2 is sufficient to diagnose a patient with chronic kidney disease. Performed By: #### F E PRO, [id number], CMP, MG, [id number], PHOS, CBC #### [place] [address] [place] #### VITB1 #### [facility] , Estimated GFR (Non- Am > 60 Normal [facility] Comment on above: Performed By: #### F E PRO, [id number], CMP, MG, [id number], PHOS, CBC #### [place] [address] [place] #### VITB1 #### [facility] , Globulin (S) [Mass/Vol] 2.8 g/dL Normal [facility] Comment on above: Performed By: #### F E PRO, [id number], CMP, MG, [id number], PHOS, CBC #### [place] [address] [place] #### VITB1 #### [facility] , Glucose [Mass/Vol] 118 mg/dL High 70-100 [facility] Comment on above: Result Comment: Sharon Glucose Reference Range is dependent on time and content of last meal. Glucose of more than 200 mg/dL in a nonstressed, ambulatory subject supports the diagnosis of Diabetes Mellitus. ADA recommended reference range Performed By: #### F E PRO, [id number], CMP, MG, [id number], PHOS, CBC #### [place] [address] [place] #### VITB1 #### [facility] , Potassium [Moles/Vol] 3.6 mmol/L Normal 3.5-5.1 [facility] Comment on above: Performed By: #### F E PRO, [id number], CMP, MG, [id number], PHOS, CBC #### [place] [address] [place] #### VITB1 #### [facility] , Protein [Mass/Vol] 6.8 g/dL Normal 6.1-7.9 [facility] Comment on above: Performed By: #### F E PRO, [id number], CMP, MG, [id number], PHOS, CBC #### [facility] [address] [place] [address] [place] #### VITB1 #### [facility] , Sodium [Moles/Vol] 136 mmol/L Normal 136-146 [facility] Comment on above: Performed By: #### F E PRO, [id number], CMP, MG, [id number], PHOS, CBC #### [facility] [address] [place] [address] #### VITB1 #### [facility] , Urea nitrogen [Mass/Vol] 10 mg/dL Normal 9-23 [facility] Comment on above: Performed By: #### F E PRO, [id number], CMP, MG, [id number], PHOS, CBC #### [facility] [address] [place] [address] [place] #### VITB1 #### [facility] , FE PROon 07-25-2020 % Iron Saturation 15.0 % Low 20-50 [facility] Comment on above: Performed By: #### F E PRO, [id number], CMP, MG, [id number], PHOS, CBC #### [facility] [address] [place] [address] [place] #### VITB1 #### [facility] , Ferritin [Mass/Vol] 8.8 ng/mL Low 11-306.8 [facility] Comment on above: Performed By: #### F E PRO, [id number], CMP, MG, [id number], PHOS, CBC #### [facility] [address] [place] [address] [place] #### VITB1 #### [facility] , Iron [Mass/Vol] 68 ug/dL Normal 40-150 [facility] Comment on above: Performed By: #### F E PRO, [id number], CMP, MG, [id number], PHOS, CBC #### [facility] [address] [place] [address] #### VITB1 #### [facility] , Total Iron Binding Capacity 441 ug/dL Normal 255-450 [facility] Comment on above: Performed By: #### F E PRO, [id number], CMP, MG, [id number], PHOS, CBC #### [facility] [address] [place] [address] #### VITB1 #### [facility] , Transferrin [Mass/Vol] 315 mg/dL Normal 180-380 [facility] Comment on above: Performed By: #### F E PRO, [id number], CMP, MG, [id number], PHOS, CBC #### [facility] [address] [place] [address] #### VITB1 #### [facility] , Magnesiumon 07-25-2020 Magnesium [Mass/Vol] 1.9 mg/dL Normal 1.6-2.6 [facility] Comment on above: Performed By: #### F E PRO, [id number], CMP, MG, [id number], PHOS, CBC #### [facility] [address] [place] [address] #### VITB1 #### [facility] , Phosphoruson 07-25-2020 Phosphate [Mass/Vol] 3.8 mg/dL Normal 2.5-4.6 [facility] Comment on above: Performed By: #### F E PRO, [id number], CMP, MG, [id number], PHOS, CBC #### [facility] [address] [place] [address] [place] #### VITB1 #### [facility] , Vit. B12/Folate Profileon Cobalamin (Vitamin B12) [Mass/Vol] 613 pg/mL Normal 180-914 [facility] Comment on above: Performed By: #### F E PRO, [id number], CMP, MG, [id number], PHOS, CBC #### [facility] [address] [place] [address] #### VITB1 #### [facility] , Folate 21.8 ng/mL Normal >5.9 [facility] Comment on above: Result Comment: Hiral te reference range: >5.9 ng/ml The WHO technical consultation on folate and vitamin b12 deficiencies has determined that folate concentrations less than 4 ng/ml are considered deficient. Performed By: #### F E PRO, [id number], CMP, MG, [id number], PHOS, CBC #### [facility] [address] [place] [address] #### VITB1 #### [facility] , Vitamin B1 (Thiamine) Bloodo n 07-25-2020 Vitamin B1 (Thiamine) Blood 120.7 Normal 66.5-200.0 [facility] Comment on above: Order Comment: Speci men Comment: Test(s) 930140-Gdl. B1, Whole Blood Specimen Comment: was developed and its performance characteristics Specimen Comment: determined by [facility]. It has not been cleared or approved Specimen Comment: by the Food and Drug Administration. Result Comment: Perf ormed at: - [facility] [address] [id number] [place] Inspector: Jaren Bishop MD, Phone: [phone] PERFORMED BY: [place] [address] PATHOLOGIST TURPENTINE FARMER TOLU MANUEL M.D. Performed By: #### F E PRO, [id number], CMP, MG, [id number], PHOS, CBC #### [facility] [address] [place] [address] #### VITB1 #### [facility] , Vitamin D 25 Hydroxy Totalon 07-25-2020 Vitamin D 25 Hydroxy Total 33.5 ng/mL Normal 30-100 [facility] Comment on above: Result Comment: LISANDRO MIN D STATUS 25(OH)VITAMIN D RANGE (ng/mL) Deficient <20 Insufficient 20 to <30 Sufficient 30 to 100 Reference: Sejal MF,Shraddha NC, Filiberto GREENBERG, et al. Evaluation,treatment, and prevention of vitamin D deficiency; an Endocrine Society clinical practice guideline. JCEM. 2010; 96(7):1911-30. PERFORMED BY: [place] [address] PATHOLOGIST TURPENTINE FARMER TOLU MANUEL M.D. Performed By: #### F E PRO, [id number], CMP, MG, [id number], PHOS, CBC #### [address] #### VITB1 #### [facility] , [...] its performance Sharda Disclaimer characteristic determined by [employer] and Sharda Disclaimer validated at [facility]. This Sharda Disclaimer test has not been FDA cleared or approved. This Shadra Disclaimer test has been authorized by FDA [...] is terminated or revoked sooner. PERFORMED BY: [facility] [place] [address] PATHOLOGIST TURPENTINE FARMER TOLU MANUEL M.D. Normal [facility] Comment on above: Performed By: #### C OVID-19 SHARDA, SOFIANEG #### [facility] [address] [place] [address] Sharda Ag Negativeon 07-21-19 21 Sharda Ag Negative Negative Normal Negative [facility] Comment on above: Result Comment: This is a duplicate Sharda SARS Antigen (SIERRA) result to be used for statistical tracking purpose only. PERFORMED BY: [place] [address] PATHOLOGIST TURPENTINE FARMER TOLU MANUEL M.D. Performed By: #### C OVID-19 SHARDA, SOFIANEG #### [facility] [address] [place] [address] Vitamin B1 (Thiamine) Whl Bl ood LCon 10-05-2018 Vit B1 Whl Bld LC 154.0 nmol/L 66.5-200.0 [facility] Comment on above: Result Comment: This test was developed and its performance characteristics determined by [facility]. It has not been cleared or approved by the Food and Drug Administration. 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: Commercial Insurance ADMIT [...] Martinez Date Saved: 10/02/2018 03:39 pm Normal [facility] .Auto Diff 1on 10-01-2018 Auto Baso % 0.3 % Normal 0.2-2.0 [facility] Comment on above: Performed By: #### 9 211202, 72332838, 1704383, 3384050721, 1186503, 646797912, 0813549, 2717361, 2049360, 7319646 #### [facility] (DEFAULT) [address] [place] [address] Auto Hitchcock % 6 % Normal 1-12 [facility] Comment on above: Performed By: #### 9 237993, 49176498, 0366565, 6426271253, 1050968, 287902390, 8770475, 3945901, 0432253, 8137994 #### [facility] (DEFAULT) [address] [place] [address] Auto Neut % 60 % Normal 44-88 [facility] Comment on above: Performed By: #### 9 545450, 24871544, 4496778, 2930883899, 9694540, 254980099, 2538527, 0037213, 3262383, 6530783 #### [facility] (DEFAULT) [address] [place] [address] Baso Abs# 0.0 x10 Normal 0.0-0.2 [facility] Comment on above: Performed By: #### 9 632792, 77183088, 0673545, 7346090630, 7674387, 882692361, 8435545, 7122052, 5089091, 6915503 #### [facility] (DEFAULT) [address] [place] [address] Eos Abs# 0.1 x10 Normal 0.0-0.4 [facility] Comment on above: Performed By: #### 9 458427, 06238842, 2001639, 4559457365, 9746448, 719630198, 1644912, 4015544, 5336410, 0531525 #### [facility] (DEFAULT) [address] [place] [address] Eosinophils/100 WBC (Bld) 0.9 % Normal 0.9-4.0 [facility] Comment on above: Performed By: #### 9 756120, 73491982, 2442511, 4945814430, 4747707, 704689119, 1117973, 2218131, 2190827, 2473595 #### [facility] (DEFAULT) [address] [place] [address] Lymphocytes #/vol (Bld) 3.4 x10 High 1.3-2.9 [facility] Comment on above: Performed By: #### 9 778429, 85176068, 3872326, 6459763792, 9632606, 191907111, 9849216, 2673171, 4866768, 6378880 #### [facility] (DEFAULT) [address] [place] [address] Lymphocytes/100 WBC (Bld) 33 % Normal 14-48 [facility] Comment on above: Performed By: #### 9 182342, 93368578, 5020143, 1398552087, 8428553, 798717057, 6026340, 5146722, 6687490, 0311575 #### [facility] (DEFAULT) [address] [place] [address] Hitchcock Abs# 0.6 x10 Normal 0.0-0.8 [facility] Comment on above: Performed By: #### 9 255738, 38203444, 4439018, 5065981464, 4751589, 207518881, 7142125, 8741657, 6113360, 5684047 #### [facility] (DEFAULT) [address] [place] [address] Neut Abs# 6.2 x10 Normal 1.5-9.2 [facility] Comment on above: Performed By: #### 9 076327, 00858214, 0659389, 1450235880, 6730766, 741720739, 7075174, 1341153, 1970617, 9591547 #### [facility] (DEFAULT) [address] [place] [address] CBC w/ Auto Diffon 9 Erythrocyte distribution width Ratio (RBC) 14.6 % Normal 11.5-15.0 [facility] Comment on above: Performed By: #### 9 407713, 16383100, 0648928, 2277873314, 6848397, 479717805, 3902861, 4572919, 3732915, 9131721 #### [facility] (DEFAULT) [address] [place] [address] Hematocrit Volume Fraction (Bld) 41.2 % High 33.7-40.4 [facility] Comment on above: Performed By: #### 9 826785, 89773957, 4229735, 1436748400, 0982608, 919930136, 8546651, 3755631, 3219644, 0455443 #### [facility] (DEFAULT) [address] [place] [address] Hemoglobin mass conc (Bld) 13.7 g/dL Normal 11.3-15.9 [facility] Comment on above: Performed By: #### 9 355943, 30075601, 4355743, 3507629232, 6255691, 267012141, 4116308, 3306734, 9927436, 1014369 #### [facility] (DEFAULT) [address] [place] [address] Man Diff? Auto Normal [facility] Comment on above: Performed By: #### 9 521702, 28986814, 4524658, 2560098021, 3418014, 279861395, 8724944, 1288633, 5020875, 9076706 #### [facility] (DEFAULT) [address] [place] [address] MCH Entitic mass (RBC) 28 pg Normal 24-34 [facility] Comment on above: Performed By: #### 9 937608, 79236845, 5927122, 8511543645, 0680445, 268535592, 1160438, 2608248, 6230212, 2809153 #### [facility] (DEFAULT) [address] [place] [address] MCHC mass conc (RBC) 33 g/dL Normal 26-37 [facility] Comment on above: Performed By: #### 9 646018, 60862248, 8451279, 5869144996, 7111034, 303842422, 8823081, 7016310, 6011771, 8959107 #### [facility] (DEFAULT) [address] [place] [address] MCV Entitic volume (RBC) 85 fL Normal 81-100 [facility] Comment on above: Performed By: #### 9 196849, 86239651, 3975660, 5953079812, 3987736, 115075033, 5024447, 0571481, 7323495, 7448239 #### [facility] (DEFAULT) [address] [place] [address] Platelet mean volume Entitic volume (Bld) 9.8 fL Normal 6.3-10.2 [facility] Comment on above: Performed By: #### 9 455887, 40464742, 1065375, 5298423990, 1712925, 184336240, 6491014, 0983156, 5850962, 5431694 #### [facility] (DEFAULT) [address] [place] [address] Platelets #/vol (Bld) 378 x10 Normal 138-427 [facility] Comment on above: Performed By: #### 9 802619, 68512997, 8335930, 8498783937, 1239278, 117529287, 8598174, 1420001, 9163638, 5892582 #### [facility] (DEFAULT) [address] [place] [address] RBC #/vol (Bld) 4.84 x10 Normal 3.70-5.30 [facility] Comment on above: Performed By: #### 9 685610, 01056229, 5341246, 9980103181, 3361910, 648312428, 0589290, 5101671, 5420452, 5354247 #### [facility] (DEFAULT) [address] [place] [address] WBC #/vol (Bld) 10.4 x10 Normal 3.5-10.5 [facility] Comment on above: Performed By: #### 9 503095, 37291462, 1092153, 9358989838, 2138692, 521830791, 6503780, 5106468, 7061247, 4642776 #### [facility] (DEFAULT) [address] [place] [address] CMP Standardon 10-01-2018 eGFR Non AA >60 [facility] Comment on above: Performed By: #### 9 197260, 23393022, 1676217, 3215058390, 3169843, 077048061, 6378046, 0094442, 9166248, 9319931 #### [facility] (DEFAULT) [address] [place] [address] eGFR AA >60 [facility] Comment on above: Result Comment: [employer] Supervisor richard Kidney disease could be indicated at eGFRs of less than 60 ml/min/1.73m2. Kidney Failure is indicated at less than 15 ml/min/1.73m2 Performed By: #### 9 372406, 61193114, 4930643, 1948952405, 2462286, 165656341, 9638710, 5025535, 6394893, 9375197 #### [facility] (DEFAULT) [address] [place] [address] Albumin mass conc 4.1 g/dL Normal 3.5-5.0 [facility] Comment on above: Performed By: #### 9 623230, 36454112, 0573558, 1271900671, 6678024, 527623881, 4127646, 5238150, 8223203, 7113875 #### [facility] (DEFAULT) [address] [place] [address] Albumin/Globulin mass ratio 1.2 {ratio} Low 1.4-2.6 [facility] Comment on above: Performed By: #### 9 557677, 21406064, 7768525, 8872429743, 1164530, 067608532, 9630576, 8433950, 8872398, 6954443 #### [facility] (DEFAULT) [address] [place] [address] Alk Phos 57 IU/L Normal 32-91 [facility] Comment on above: Performed By: #### 9 256633, 14689106, 0580177, 1158577469, 2975301, 684523966, 8580497, 2287357, 2393796, 9423573 #### [facility] (DEFAULT) [address] [place] [address] ALT/SGPT 68.0 IU/L High 14.0-54.0 [facility] Comment on above: Performed By: #### 9 483099, 46895466, 7564591, 4412716296, 6949120, 065949066, 9662274, 7276571, 6465313, 0958443 #### [facility] (DEFAULT) [address] [place] [address] Anion gap molar conc 15.0 mmol/L Normal 5.0-19.0 [facility] Comment on above: Performed By: #### 9 734061, 71862690, 6792887, 7973151657, 5694472, 041549917, 4576018, 5740544, 6935780, 2609126 #### [facility] (DEFAULT) [address] [place] [address] AST/SGOT 40 IU/L Normal 15-41 [facility] Comment on above: Performed By: #### 9 281012, 62640108, 1446037, 6300198233, 4472295, 279843525, 9662434, 7696390, 5691003, 6012284 #### [facility] (DEFAULT) [address] [place] [address] Bili Total 0.2 mg/dL Low 0.3-1.2 [facility] Comment on above: Performed By: #### 9 897446, 41835187, 3995144, 1853633992, 7562185, 678077175, 2649954, 4034489, 5646071, 9650412 #### [facility] (DEFAULT) [address] [place] [address] Calcium mass conc 9.1 mg/dL Normal 8.9-10.3 [facility] Comment on above: Performed By: #### 9 806518, 72513901, 5775724, 0142858780, 9079814, 645233800, 3352338, 1397345, 0044438, 7880579 #### [facility] (DEFAULT) [address] [place] [address] Chloride molar conc 103 mmol/L Normal 101-111 [facility] Comment on above: Performed By: #### 9 290750, 35327678, 3639289, 3694620940, 8989393, 195779331, 4325096, 4697424, 1651384, 1464342 #### [facility] (DEFAULT) [address] [place] [address] CO2 molar conc 24 mmol/L Normal 21-32 [facility] Comment on above: Performed By: #### 9 073242, 00969150, 8481464, 3237765598, 9280044, 628822561, 8642889, 0752173, 5569092, 5036296 #### [facility] (DEFAULT) [address] [place] [address] Creatinine mass conc 0.71 mg/dL Normal 0.60-1.30 [facility] Comment on above: Performed By: #### 9 383737, 30074594, 2891392, 1757566375, 1206058, 601635658, 4466432, 7650135, 9030490, 3826109 #### [facility] (DEFAULT) [address] [place] [address] Globulin mass conc (S) 3.3 g/dL Normal 1.5-4.3 [facility] Comment on above: Performed By: #### 9 604725, 98087850, 9047064, 4025443242, 0982970, 961863409, 7381396, 5399983, 0476963, 0384731 #### [facility] (DEFAULT) [address] [place] [address] Glucose mass conc 94.0 mg/dL Normal 74.0-118.0 [facility] Comment on above: Performed By: #### 9 443444, 16256735, 1477459, 2562684870, 0333250, 720003643, 6822874, 8178245, 6316356, 1223156 #### [facility] (DEFAULT) [address] [place] [address] Osmolality 274 mOsm/L [facility] Comment on above: Performed By: #### 9 161047, 47034056, 6932035, 8663010078, 7509580, 213874060, 0985791, 7702830, 0137041, 0513773 #### [facility] (DEFAULT) [address] [place] [address] Potassium molar conc 3.8 mmol/L Normal 3.6-5.1 [facility] Comment on above: Performed By: #### 9 198510, 90916375, 7979581, 5692826099, 2618161, 964281883, 0045615, 4435783, 1462741, 3505191 #### [facility] (DEFAULT) [address] [place] [address] Protein mass conc 7.4 g/dL Normal 6.5-8.1 [facility] Comment on above: Performed By: #### 9 166662, 27638980, 7754487, 7150494176, 0905856, 383293679, 0364609, 4613230, 9555297, 4866352 #### [facility] (DEFAULT) [address] [place] [address] Sodium molar conc 138.0 mmol/L Normal 136.0-144.0 [facility] Comment on above: Performed By: #### 9 575615, 36355099, 4888290, 3390903466, 9618423, 281977643, 8078721, 1889746, 1269379, 8107155 #### [facility] (DEFAULT) [address] [place] [address] Urea nitrogen mass conc 10 mg/dL Normal 8-26 [facility] Comment on above: Performed By: #### 9 184302, 13825759, 0402699, 1916856489, [id number], [id number], 2051433, 6990522, 4203038, 9537916 #### [facility] (DEFAULT) [address] [place] [address] Urea nitrogen/Creatinine mass ratio 14.0 mg/mg Normal 4.6-16.2 [facility] Comment on above: Performed By: #### 9 [id number], [id number], 8676047, [id number], 6092010, [id number], 5630567, 2333556, 0277830, 7722574 #### [facility] (DEFAULT) [address] [place] [address] Folateon 10-01-2018 Folic Acid Level 13.29 ng/mL Normal 5.90-24.80 [facility] Comment on above: Result Comment: Norm al folate results > 3.0 ng/mL. Performed By: #### 9 [id number], [id number], 2855622, [id number], [id number], [id number], 2310251, 7389887, 5970522, [id number] #### [facility] (DEFAULT) [address] [place] [address] Iron Levelon 10-01-2018 Iron mass conc 53.0 ug/dL Normal 28.0-170.0 [facility] Comment on above: Performed By: #### 9 [id number], [id number], [id number], [id number], 2037263, [id number], 1558465, 2970691, 5065739, 3618113 #### [facility] (DEFAULT) [address] [place] [id number] Magnesiumon 10-01-2018 Magnesium mass conc 2.01 mg/dL Normal 1.80-2.50 [facility] Comment on above: Result Comment: The reference range for magnesium has changed from 0.40-2.10 mg/dl to 1.80-2.50 mg/dl as of 08/15/15. Performed By: #### 9 [id number], [id number] #### [facility] (DEFAULT) [address] [place] [address] 65651 Phoson 10-01-2018 Phosphate mass conc 3.1 mg/dL Normal 2.5-4.6 [facility] Comment on above: Performed By: #### 9 [id number], [id number], [id number], [id number] #### [facility] (DEFAULT) [address] [place] [address] 43832 Vit B12 Lvlon 10-01-2018 Cobalamin (Vitamin B12) mass conc 1488 pg/mL High 180-914 [facility] Comment on above: Performed By: #### 9 [id number], [id number], [id number], [id number], [id number], [id number] #### [facility] (DEFAULT) [address] [place] [address] 40520 Vit D25 OHon 10-01-2018 Vitamin D 25 OH 41 ng/mL [facility] Comment on above: Result Comment: In , [...] J Clin Endocrinol Metab 2011; 96 (7): 3622-8240. Performed By: #### 9 [id number], [id number], [id number], [id number], [id number], [id number] #### [facility] (DEFAULT) [address] [place] [address] 10766 Vital Signs Date Time Vital Sign Value Performing Clinician Facility 10-07-2024 14:10-0400 Body mass index (BMI) [Ratio] 33.78 kg/m2 Douglas Debbie DO Work Phone: [facility] 10-07-2024 14:10-0400 Body weight 81.1 kg Douglas Debbie DO Work Phone: [facility] 10-07-2024 14:10-0400 Diastolic blood pressure 68 mm[Hg] Douglas Debbie DO Work Phone: [facility] 10-07-2024 14:10-0400 Systolic blood pressure 114 mm[Hg] Douglas Debbie DO Work Phone: [facility] 09-23-2024 11:46-0400 Body mass index (BMI) [Ratio] 33.09 kg/m2 Douglas Debbie DO Work Phone: [facility] 09-23-2024 11:46-0400 Body weight 79.43 kg Douglas Debbie DO Work Phone: [facility] 09-23-2024 11:46-0400 Diastolic blood pressure 74 mm[Hg] Douglas Debbie DO Work Phone: [facility] 09-23-2024 11:46-0400 Systolic blood pressure 110 mm[Hg] Douglas Debbie DO Work Phone: [facility] 09-08-2024 09:43-0400 Body mass index (BMI) [Ratio] 32.88 kg/m2 Douglas Debbie DO Work Phone: [facility] 09-08-2024 09:43-0400 Body weight 78.93 kg Douglas Debbie DO Work Phone: [facility] 09-08-2024 09:43-0400 Diastolic blood pressure 70 mm[Hg] Douglas Debbie DO Work Phone: [facility] 09-08-2024 09:43-0400 Systolic blood pressure 112 mm[Hg] Douglas Debbie DO Work Phone: [facility] 08-13-2024 09:32-0400 Body mass index (BMI) [Ratio] 32.08 kg/m2 Douglas Debbie DO Work Phone: [facility] 08-13-2024 09:32-0400 Body weight 77.02 kg Douglas Debbie DO Work Phone: [facility] 08-13-2024 09:32-0400 Diastolic blood pressure 76 mm[Hg] Douglas Debbie DO Work Phone: [facility] 08-13-2024 09:32-0400 Systolic blood pressure 116 mm[Hg] Douglas Debbie DO Work Phone: [facility] 07-16-2024 09:08-0400 Body mass index (BMI) [Ratio] 30.42 kg/m2 Douglas Debbie DO Work Phone: [facility] 07-16-2024 09:08-0400 Body weight 73.03 kg Douglas Debbie DO Work Phone: [facility] 07-16-2024 09:08-0400 Diastolic blood pressure 82 mm[Hg] Douglas Debbie DO Work Phone: [facility] 07-16-2024 09:08-0400 Systolic blood pressure 118 mm[Hg] Douglas Debbie DO Work Phone: [facility] 06-17-2024 08:57-0500 Body mass index (BMI) [Ratio] 30.42 kg/m2 Maddie WRIGHT Work Phone: [facility] 06-17-2024 08:57-0500 Body weight 73.03 kg Maddie WRIGHT Work Phone: [facility] 06-17-2024 08:57-0500 Diastolic blood pressure 72 mm[Hg] Maddie WRIGHT Work Phone: [facility] 06-17-2024 08:57-0500 Systolic blood pressure 112 mm[Hg] Maddie WRIGHT Work Phone: [facility] 05-20-2024 15:27-0500 Body mass index (BMI) [Ratio] 29.55 kg/m2 Douglas Debbie DO Work Phone: [facility] 05-20-2024 15:27-0500 Body weight 70.94 kg Douglas Debbie DO Work Phone: [facility] 05-20-2024 15:27-0500 Diastolic blood pressure 70 mm[Hg] Douglas Debbie DO Work Phone: [facility] 05-20-2024 15:27-0500 Systolic blood pressure 102 mm[Hg] Douglas Debbie DO Work Phone: [facility] 04-17-2024 11:01-0500 Body mass index (BMI) [Ratio] 28.72 kg/m2 [facility] 04-17-2024 11:01-0500 Body weight 68.[address] [facility] Nurse [facility] 04-17-2024 11:01-0500 Diastolic blood pressure 70 mm[Hg] [facility] 04-17-2024 11:01-0500 Systolic blood pressure 118 mm[Hg] [facility] 01-09-2024 15:59-0400 Body height 154.9 cm Xena Mccallum MD Work Phone: [facility] 01-09-2024 15:59-0400 Body mass index (BMI) [Ratio] 29.25 kg/m2 Xena Mccallum MD Work Phone: [facility] 01-09-2024 15:59-0400 Body weight 70.22 kg Xena Mccallum MD Work Phone: [facility] 01-09-2024 15:59-0400 Diastolic blood pressure 70 mm[Hg] Xena Mccallum MD Work Phone: [facility] 01-09-2024 15:59-0400 Heart rate 82 /min Xena Mccallum MD Work Phone: [facility] 01-09-2024 15:59-0400 Respiratory rate 18 /min Xena Mccallum MD Work Phone: [facility] 01-09-2024 15:59-0400 SaO2% (BldA) [Mass fraction] 99 % Xena Mccallum MD Work Phone: [facility] 01-09-2024 15:59-0400 Systolic blood pressure 122 mm[Hg] Xena Mccallum MD Work Phone: [facility] 08-16-2021 10:22-0400 Blood Pressure Location Scotty LOGAN [facility] 08-16-2021 10:22-0400 Diastolic blood pressure 72 mm[Hg] Scotty LOGAN [facility] 08-16-2021 10:22-0400 Heart rate 84 /min Scotty LOGAN [facility] 08-16-2021 10:22-0400 Respiratory rate 16 /min Scotty LOGAN [facility] 08-16-2021 10:22-0400 Systolic blood pressure 104 mm[Hg] Scotty LOGAN [facility] Encounters Encounter Date Encounter Type Care [...] Available Start: 09-23-2024 End: 09-23-2024 flow sheet Douglsa Debbie DO Work Phone: [facility] [...] Start: 09-08-2024 End: 09-08-2024 flow sheet Douglas Dbebie DO Work Phone: [facility] Comment [...] flow sheet Douglas Debbie DO Work Phone: [facility] Comment on above: Second [...] Bamboo flowsheet Douglas Debbie DO Work Phone: [facility] Start: 07-16-2024 End: 07-16-2024 Bamboo flowsheet Douglas Debbie DO Work Phone: [facility] Start: 07-16-2024 End: 07-16-2024 flow sheet Douglas Debbie DO Work Phone: [facility] Comment on above: 22 weeks gestation o f ; Second trimester ; Diabetes mellitus screening; History of gastric bypass; Nonintractable headache, unspecified chronicity pattern, unspecified headache type Start: 07-16-2024 End: 07-16-2024 ambulatory DOUGLAS SZYMANSKIZIO Not Available Start: 07-09-2024 End: 07-09-2024 ambulatory MADDIE HARP Not Available Start: 06-17-2024 End: 06-17-2024 Bamboo flowsheet Maddie WRIGHT Work Phone: [facility] Start: 06-17-2024 End: 06-17-2024 Bamboo flowsheet Maddie WRIGHT Work Phone: [facility] Start: 06-17-2024 End: 06-17-2024 flow sheet Maddie WRIGHT Work Phone: [facility] Comment on above: Second [...] Start: 07-24-2023 End: 07-25-2023 ambulatory Scotty LOGAN Facility:[facility] Start: 07-24-2023 End: 07-24-2023 Patient encounter procedure Scotty LOGAN [facility] Start: 05-09-2022 ambulatory CHERYL TOTH Facility:[facility] Start: 04-09-2022 End: 04-10-[address] SCOTTY LOGAN Facility:[facility] Start: 02-28-2022 End: 03-01-2022 ambulatory CHERYL TOTH Facility:[facility] Start: 12-28-2021 End: 12-29-[address] DOCTOR WHALEN Facility:[facility] Start: 09-01-2021 End: 09-02-[address] DOCTOR WHALEN Facility:[facility] Start: 08-16-2021 End: 08-16-2021 Patient encounter procedure Scotty LOGAN [facility] Start: 08-11-2021 End: 08-12-[address] [...] 07-22-2024 [facility] CMP (CMP) (FOR R EMOTE [facility] USE) Douglas Debbie DO Work Phone: Start: [...] Influenza vaccination Influenz a Vaccine (Season Ended) [facility] Start: 11-10-2024 End: 11-10-2024 Patient encounter procedure 11/10/2024 10:00 AM EDT Office Visit [facility] [address] [facility] [address] [place] [phone] Douglas Lewis, DO [address], [place] [address] [facility] Start: 11-04-2024 End: 11-04-2024 Patient encounter procedure 11/04/2024 10:50 AM EDT Routine [facility] [address] [facility] [place] [phone] Douglas Lewis, DO [address] [place] [address] [facility] Start: 10-28-2024 End: 10-28-2024 Patient encounter procedure 10/28/2024 9:00 AM EDT Routine [facility] [address] [place] [phone] Maddie Harp PA [address] [place], [place] [id number] [facility] Start: 10-26-2024 Influenza vaccination Influenza Vacc ine (#1) [facility] Comment on above: Postponed from 12/28 (Patient Refused) Start: 10-21-2024 End: 10-21-2024 Patient encounter procedure 10/21/2024 1:30 PM EDT Routine [facility] [address] [place] [phone] Douglas Lewis, DO [address] [place] [address] [facility] Start: 10-07-2024 End: 10-07-2024 Patient encounter procedure 10/07/2024 1:50 PM EDT Routine [facility] [address] [place] [address] Douglas Lewis, DO [address] [place] [address] [facility] Start: 09-23-2024 End: 09-23-2024 Patient encounter procedure 09/23/2024 11:30 AM EDT Routine [facility] [address] [place] [phone] Douglas Lewis, DO [address] [place] [address] [facility] Start: 09-15-2024 End: 09-15-2024 Professional / ancillary services management 09/15/2024 11:30 AM EDT Ancillary Procedure [facility] [address] [place] [phone] [facility] Start: 09-08-2024 End: 03-11-2025 [...] AM EDT Routine [facility] [address] [facility] [place] [phone] Douglas Lewis, DO [address] [place] [address] [facility] Start: 08-26-2024 End: 08-26-2024 Patient encounter procedure 08/26/2024 8:50 AM EDT Routine [facility] [address] [facility] [place] [phone] Ingrid Villalta, MILLING MACHINIST [address] [facility] [place] [phone] [facility] Start: 08-13-2024 End: 08-13-2024 Patient encounter procedure 08/13/2024 9:10 AM EDT Routine [facility] [address] [facility] [place] [phone] Douglas Lewis, DO [address] [place] [address] [facility] Start: 07-16-2024 End: 07-16-2025 CBC panel - Blood by Automated count CBC Lab Routine 22 weeks gestation of Second trimester Diabetes mellitus screening Expected: 07/16/2024 (Approximate), Expires: 07/16/2025 [facility] Work Phone: Comment on above: [...] EDT Ancillary Procedure [facility] [address] [place] [phone] [facility] Start: 06-17-2024 End: 06-17-2025 [...] gestational age Expected: 04/17/2024 (Approximate), Expires: 04/17/2025 [facility] Work Phone: Comment on above: Expected: 04/17/2024 (Approximate), Expires: 04/17/2025 Start: 04-17-2024 End: 04-17-2025 Drugs of abuse panel - Urine by Screen method Rapid drug screen, urine Lab Routine , unspecified gestational age Encounter for supervision of normal first in first trimester Expected: 04/17/2024 (Approximate), Expires: 04/17/2025 [facility] Comment on above: Expected: 04/17/2024 (Approximate), Expires: 04/17/2025 Start: 04-17-2024 End: 04-17-2025 US Pelvis transvaginal US OB transvaginal Imaging Routine Missed menses Expected: 04/17/2024 (Approximate), Expires: 04/17/2025 [facility] Comment on above: Expected: 04/17/2024 (Approximate), Expires: 04/17/2025 Start: 01-16-2024 End: 01-16-2024 Professional / ancillary services management 01/16/2024 10:00 AM EDT Ancillary Procedure [facility] [address] [place] [address] [facility] [address] Start: 01-11-2024 End: 01-10-2025 CT Abdomen and Pelvis WO contrast CT abdomen pelvis wo IV contrast Imaging Routine Other microscopic hematuria Expected: 01/11/2024, Expires: 01/10/2025 [facility] Work Phone: Comment on above: Expected: 01/11/2024 , Expires: 01/10/2025 Bacteria identified in Urine by Culture Urine culture Microbiology Routine Missed menses Ordered: 04/17/2024 [facility] Comment on above: Ordered: 04/17/2024 CBC W Auto Different ial panel - Blood CBC and differential Lab Routine Missed menses , unspecified gestational age Ordered: 04/17/2024 [facility] Comment on above: Ordered: 04/17/2024 CHLAMYDIA TRACHOMATI S (GENITO/STI) CHLAMYDIA TRACHOMATIS (GENITO/STI) Lab Routine Screening examination for STI Ordered: 06/17/2024 [facility] Comment on above: Ordered: 06/17/2024 Hemoglobin A1c/Hemoglobin.total in Blood Hemoglobin A1c Lab Routine Missed menses , unspecified gestational age Ordered: 04/17/2024 [facility] Comment on above: Ordered: 04/17/2024 Hemoglobin A1c/Hemoglobin.total in Blood Hemoglobin A1c Lab Routine 22 weeks gestation of Second trimester Diabetes mellitus screening History of gastric bypass Ordered: 07/16/2024 [facility] Comment on above: Ordered: 07/16/2024 Hepatitis B virus surface Ag [Presence] in Serum or Plasma by Immunoassay Hepatitis B surface antigen Lab Routine Missed menses , unspecified gestational age Ordered: 04/17/2024 [facility] Comment on above: Ordered: 04/17/2024 Hepatitis C virus Ab [Presence] in Serum or Plasma by Immunoassay Hepatitis C antibody Lab Routine Missed menses , unspecified gestational age Ordered: 04/17/2024 [facility] Comment on above: Ordered: 04/17/2024 HIV-1/HIV-2 antigen/antibody combination immunoassay HIV-1 and HIV-2 antibodies Lab Routine Missed menses , unspecified gestational age Ordered: 04/17/2024 [facility] Comment on above: Ordered: 04/17/2024 Neisseria gonorrhoea e DNA [Presence] in Unspecified specimen by DEZ with probe detection Neisseria gonorrhea DNA probe, direct Lab Routine Screening examination for STI Ordered: 06/17/2024 [facility] Comment on above: Ordered: 06/17/2024 Reagin Ab [Presence] in Serum by RPR RPR Lab Routine Missed menses , unspecified gestational age Ordered: 04/17/2024 [facility] Comment on above: Ordered: 04/17/2024 Rubella antibody, IgG Rubella an tibody, IgG Lab Routine Missed menses , unspecified gestational age Ordered: 04/17/2024 [facility] Comment on above: Ordered: 04/17/2024 SURESWAB(R) ADVANCED VAGINITIS PLUS, TMA SURESWAB(R) ADVANCED VAGINITIS PLUS, TMA Pathology and Cytology Routine Screening examination for STI Ordered: 06/17/2024 [facility] Work Phone: Comment on above: Ordered: 06/17/2024 Immunizations Immunization Date Immunization Notes Care Provider Fa cility 05-03-2020 influenza, injectabl e, quadrivalent, contains preservative Xena Mccallum MD Work Phone: [facility] 05-03-2020 influenza virus vacc ine, unspecified formulation Xena Mccallum MD Work Phone: [facility] 10-03-2018 influenza, injectabl e, quadrivalent, contains preservative Xena Mccallum MD Work Phone: [facility] 02-21-2016 influenza, seasonal, injectable, preservative free Xena Mccallum MD Work Phone: [facility] Payers Date Payer Category Payer [facility] [id number] 2023 Unknown [id number] 2022 Medicaid [facility] MEDICAID [place] [employer] [id number] 2022-Present [address] [place] [id number] 2022 Medicaid (Managed Care) [employer] [id number] 1995 Unknown [id number] 2.840.1.213254.3.579.2. 593 1995 Unknown [id number] 2.16840.1.654569.3.579.2. 593 1995 Unknown [id number] 2.16.840.1.953561.3.579.2. 593 1995 Unknown [id number] 2.16.840.1.556283.3.579.2. 593 1995 Unknown [id number] 2.16.840.1.553551.3.579.2. 593 1995 Unknown [id number] 2.16.840.1.993086.3.579.2. 593 1995 Unknown [id number] 2.16.840.1.915744.3.579.2. 593 1995 Unknown [id number] 2.16.840.1.736925.3.579.2. 593 1995 Unknown [id number] 2.16.840.1.336531.3.579.2. 593 1995 Unknown [id number] 2.16.840.1.710475.3.579.2. 727 1995 Unknown [id number] 2.16.840.1.479672.3.579.2. 1259 1995 Unknown [id number] 2.16.840.1.676406.3.579.2. 1259 1995 Unknown [id number] 2.16.840.1.645563.3.579.2. 1259 1995 Unknown [id number] 2.16.840.1.617066.3.579.2. 1259 1995 Unknown [id number] 2.16.840.1.709716.3.579.2. 1259 1995 Unknown [id number] 2.16.840.1.306382.3.579.2. 1259 1995 Unknown [id number] 2.16.840.1.937307.3.579.2. 1259 1995 Unknown [id number] 2.16.840.1.126437.3.579.2. 1259 1995 Unknown [id number] 2.16.840.1.930641.3.579.2. 1259 1995 Unknown [id number] 2.16.840.1.865384.3.579.2. 1259 1995 Unknown [id number] 2.16.840.1.304998.3.579.2. 1259 1995 Unknown [id number] 2.16.840.1.700950.3.579.2. 1259 1995 Unknown [id number] 2.16.840.1.866897.3.579.2. 1259 1959 Self-pay [id number] 1959 Unknown [id number] Social History Date Type Detail Facility Start: 04-29-2020 End: 06-18-2023 Tobacco smoking status Never smoked tobacco (finding) [facility] Comment on above: Pt. denies Tobacco smoking status Never [facility] Comment on above: Pt. denies Start: 06-18-2023 End: 01-13-2024 Sex Assigned At Female [facility] Start: 06-18-2023 Tobacco use and exposure [...] Diagnosis Date Noted Depression ([facility]) 06/18/2023 Anemia 06/18/2023 Anxiety 06/18/2023 Recurrent nephrolithiasis 09/05/2016 Essential thrombocythemia ([facility]) 06/18/2023 Gastric bypass status for [...] COSMETIC SURGERY 05/17/2020 [facility] [place] ELBOW SURGERY Left 1999 OTHER SURGICAL HISTORY [...] nursing note reviewed. Exam conducted with a train control technician present. Vitals: Estimated body mass index is [...] Douglas Lewis DO documented in this encounter [facility] 09-23-2024 History of Presen t illness Narrative [...] Diagnosis Date Noted Depression ([facility]) 06/18/2023 Anemia 06/18/2023 Anxiety 06/18/2023 Recurrent nephrolithiasis 09/05/2016 Essential thrombocythemia ([facility]) 06/18/2023 Gastric bypass status for [...] COSMETIC SURGERY 05/17/2020 [facility] [place] ELBOW SURGERY Left 2000 OTHER SURGICAL HISTORY [...] nursing note reviewed. Exam conducted with a train control technician present. Vitals: Estimated body mass index is [...] Douglas Lewis DO documented in this encounter [facility] 09-08-2024 History of Presen t illness [...] Diagnosis Date Noted Depression ([facility]) 06/18/2023 Anemia 06/18/2023 Anxiety 06/18/2023 Recurrent nephrolithiasis 09/05/2016 Essential thrombocythemia ([facility]) 06/18/2023 Gastric bypass status for [...] COSMETIC SURGERY 05/17/2020 [facility] [place] ELBOW SURGERY Left 2000 OTHER SURGICAL HISTORY [...] nursing note reviewed. Exam conducted with a train control technician present. Vitals: Estimated body mass index is [...] Douglas Lewis DO documented in this encounter [facility] 08-13-2024 History of Presen t illness [...] COSMETIC SURGERY 05/17/2020 [facility] [place] ELBOW SURGERY Left 2000 OTHER SURGICAL HISTORY [...] nursing note reviewed. Exam conducted with a train control technician present. Vitals: Estimated body mass index is [...] Douglas Lewis DO documented in this encounter [facility] 07-16-2024 History of Presen t illness [...] COSMETIC SURGERY 05/17/2020 [facility] [place] ELBOW SURGERY Left 2000 OTHER SURGICAL HISTORY [...] nursing note reviewed. Exam conducted with a train control technician present. Vitals: Estimated body mass index is [...] Maddie Harp PA-C documented in this encounter [facility] 06-17-2024 History of Presen t illness [...] Diagnosis Date Noted Depression ([facility]) 06/18/2023 Anemia 06/18/2023 Anxiety 06/18/2023 Recurrent nephrolithiasis 09/05/2016 Essential thrombocythemia ([facility]) 06/18/2023 Gastric bypass status for [...] COSMETIC SURGERY 05/17/2020 [facility] [place] ELBOW SURGERY Left 2000 OTHER SURGICAL HISTORY [...] nursing note reviewed. Exam conducted with a train control technician present. Vitals: Estimated body mass index is [...] of: KYLE Martinez documented in this encounter [facility] 05-20-2024 History of Presen t illness Narrative [...] Diagnosis Date Noted Depression ([facility]) 06/18/2023 Anemia 06/18/2023 Anxiety 06/18/2023 Recurrent nephrolithiasis 09/05/2016 Essential thrombocythemia ([facility]) 06/18/2023 Gastric bypass status for [...] COSMETIC SURGERY 05/17/2020 [facility] [place] ELBOW SURGERY Left 2000 OTHER SURGICAL HISTORY [...] nursing note reviewed. Exam conducted with a train control technician present. Vitals: Estimated body mass index is [...] or undercooked meat, and stay away from [facility]. Patient has been consulted regarding any further do's and don'ts of . Patient voiced understanding and all questions and concerns were answered. Orders Placed This Encounter Procedures POCT urinalysis dipstick manually resulted Follow Up: Patient is to return in 4 weeks for routine OB appointment. Documented by Thelma Perry LPN on behalf of: Douglas Lewis DO documented in this encounter [facility] 04-17-2024 History of Presen t illness [...] Diagnosis Date Noted Depression ([facility]) 06/18/2023 Anemia 06/18/2023 Anxiety 06/18/2023 Recurrent nephrolithiasis 09/05/2016 Essential thrombocythemia ([facility]) 06/18/2023 Gastric bypass status for [...] COSMETIC SURGERY 05/17/2020 [facility] [place] ELBOW SURGERY Left 1999 OTHER SURGICAL HISTORY [...] or undercooked meat, and stay away from [facility]. Patient has also been advised to [...] Cecy Nicholas MA documented in this encounter [facility] 02-20-2024 Telephone encounter Note Approvals with refills [facility] 02-20-2024 Miscellaneous Notes Approvals with refills documented in this encounter [facility] 01-09-2024 History of Presen t illness [...] COSMETIC SURGERY 05/17/2020 [facility] [place] ELBOW SURGERY Left 1999 OTHER SURGICAL HISTORY [...] Assessment & Plan documented in this encounter [facility] 01-09-2024 Telephone encounter Note Patient is losing her insurance any day now. Can you refill all these for 90 days? Uses [facility] [place]. She recently got and is switching to her husbands insurance. Thank you [facility] 01-09-2024 Miscellaneous Notes Patient is losing her insurance any day now. Can you refill all these for 90 days? [facility]ses [facility] [place]. She recently got and is switching to her husbands insurance. Thank you documented in this encounter [facility] 08-16-2021 Hospital Discharg e instructions Follow Up Care 08/16/2021 11:11:34 With:DESMOND BURKS, Scotty English, URL Address: [address] [place] [address]- When: Unknown [facility] 08-16-2021 Hospital Discharg e instructions Patient Education 08/16/2021 11:04:11 Kidney Stones, [id number] Kidney Stones Kidney stones are rock-like masses [...] Follow these instructions at home: Medicines Take nxuc-ozl-[id number] and prescription medicines only as told by [...] 10/01/2008 Document Revised: 09/01/2019 Document Reviewed: 09/01/2019 [employer] Patient Education 2020 [employer] 08/16/2021 11:04:10 Calorie Counting for Weight [...] 04/15/2006 Document Revised: 01/02/2019 Document Reviewed: 03/15/2017 [employer] Patient Education 2020 [employer] Follow Up Care 03/22/2021 11:46:26 With:DESMOND BURKS, Scotty Amador, URL Address: When:Within 6 Month(s) Comments:w/MAGALYS [facility] 05-11-2021 Note DISCHARGE SUMMARY PRIMARY DIAGNOSES: [...] pain free and no longer on narcotics. [facility] Signed and Approved by: DR DOUGLAS LEWIS . 06/08/2021 22:19:00 [facility] 05-11-2021 Note OPERATIVE NOTE PROCEDURE: Primary low transverse section. PREOPERATIVE DIAGNOSIS: 1. Intrauterine at 39 weeks. 2. Non-reassuring heart tones. POSTOPERATIVE DIAGNOSIS: 1. Intrauterine at 39 weeks. 2. Non-reassuring heart tones. SURGEON: Douglas Lewis D.O. AUTOMOTIVE PARTS COUNTER PERSON: MUSIC PUBLISHER ANESTHESIA: Epidural with Duramorph. BLOOD LOSS: 575 [...] to the Recovery Room in stable condition. [facility] Signed and Approved by: DR DOUGLAS LEWIS . 06/08/2021 22:19:00 [facility] Evaluation + Plan note Future Appointments Appointment Date:09/19/2021 11:00:00 AM Scheduled Provider:Scotty LOGAN MD Location:[facility] Appointment Type:URO Phone Visit Appointment Date:02/21/2022 11:15:00 AM Scheduled Provider:Scotty LOGAN MD Location:[facility] Appointment Type:URO Office Visit [facility] Evaluation note Diagnosis Neck pain Cervicalgia [...] available for this section [facility] Progress note No data available for this section [facility] Summary Purpose Family History No Family [...] IV contrast Xena Mccallum MD [address] [place] [address] Referral ID Status Reason Start Date Expiration Date V isits Requested Visits Authorized [id number] Pending Review 01/11/2024 07/09/2024 1 1 Additional Source Comments INFORMATION SOURCE (unrecogn ized section and content) DATE CREATED AUTHOR 10/05/2018 [facility] DATE CREATED AUTHOR AUTHOR'S ORGANIZ ATION 06/06/2021 [facility] DATE CREATED AUTHOR AUTHOR'S ORGANIZ ATION 07/13/2021 [facility] dical Specialist DATE CREATED AUTHOR AUTHOR'S ORGANIZ ATION 05/09/2022 [facility] DATE CREATED AUTHOR AUTHOR'S ORGANIZ ATION 07/26/2023 [facility]el[facility] DATE CREATED AUTHOR AUTHOR'S ORGANIZ ATION 10/10/2024 [facility] dical Specialists EPIC Patient Care team informatio n (unrecognized section and content) Import Export Manager Relationship Specialty Start Date End Date Xena Mccallum MD [address] [facility] [place] [address] PCP - General Family Medicine 09/04/22 Isabel Li, MILLING MACHINIST [address] [facility] [place] [address] PCP - [facility] 10/28/23 Import Export Manager Relationship Specialty Start Date End Date Xena Mccallum MD [address] [facility] [place] [address] PCP - General Family Medicine 09/04/22 Isabel Li MILLING MACHINIST [address] [facility] [place] [address] PCP - [facility] 10/28/23 Import Export Manager Relationship Specialty Start Date End Date Xena Mccallum MD [address] [facility] [place] [address] PCP - General Family [facility] 09/04/22 Isabel Li, MILLING MACHINIST [address] [facility] [place] [address] PCP - [facility] 10/28/23 Import Export Manager Relationship Specialty Start Date End Date Xena Mccallum MD [address] [facility] [place] [address] PCP - General Family [facility] 09/04/22 Isabel Li, MILLING MACHINIST [address] [facility] [place] [address] PCP - [facility] 10/28/23 Import Export Manager Relationship Specialty Start Date End Date Xena Mccallum MD [address] [facility] [place] [address] PCP - General Family [facility] 09/04/22 Isabel Li, MILLING MACHINIST [address] [facility] [place] [address] PCP - [facility] 10/28/23 Import Export Manager Relationship Specialty Start Date End Date Xena Mccallum MD [address] [facility] [place] [address] PCP - General Family Medicine 09/04/22 Isabel Li, MILLING MACHINIST PCP - [facility] 10/28/23 Import Export Manager Relationship Specialty Start Date End Date Xena Mccallum MD [address] [facility] [place] [address] PCP - General Family Medicine 09/04/22 Isabel Li, MILLING MACHINIST PCP - [facility] 10/28/23 Import Export Manager Relationship Specialty Start Date End Date Xena Mccallum MD [address] [facility] [place] [address] PCP - General Family Medicine 09/04/22 Isabel Li MILLING MACHINIST PCP [facility] 10/28/23 Import Export Manager Relationship Specialty Start Date End Date Xena Mccallum MD [address] [facility] [place] [facility] [place] [address] PCP - [facility] 09/04/22 Isabel Li MILLING MACHINIST PCP - [facility] 10/28/23 Import Export Manager Relationship Specialty Start Date End Date Xena Mccallum MD [address] [facility] [place] [address] PCP - General Family Medicine 09/04/22 Isabel Li, MILLING MACHINIST PCP - [facility] 10/28/23 Import Export Manager Relationship Specialty Start Date End Date Xena Mccallum MD [address] [facility] [place] [address] PCP - General Family Medicine 09/04/22 Isabel Li, MILLING MACHINIST PCP [facility] 10/28/23 Import Export Manager Relationship Specialty Start Date End Date Xena Mccallum MD [address] [facility] [place] [address] PCP - General Family Medicine 09/04/22 Isabel Li, MILLING MACHINIST [facility] - [facility] 10/28/23 Import Export Manager Relationship Specialty Start Date End Date Xena Mccallum MD [address] [facility] [place] [address] PCP - [facility] 09/04/22 Isabel Li NP [facility] - [facility] 10/28/23 Import Export Manager Relationship Specialty Start Date End Date Xena Mccallum MD [address] [facility] [place], [place] [address] PCP - [facility] 09/04/22 Isabel Li, MILLING MACHINIST [facility] - [facility] 10/28/23 Reason for Visit (unrecogniz ed [...] BE BASED ON THE PRIMARY CLINICAL RECORDS. [employer] [facility]. provides no warranty or guarantee of the accuracy or completeness of information in this document.
[2024-10-14 09:48] VITALS: BP 106/55; PULSE 102
== END 2024-10-14 09:52 | disposition home or self-care (01) ==
LOC: US 08:55 → FBC 08:57
PROVIDERS: PCP Family Medicine; Visit Provider Obstetrics & Gynecology
DX: O26.893 Other specified pregnancy related conditions, third trimester (principal); Z3A.34 34 weeks gestation of pregnancy; Z98.84 Bariatric surgery status
CPT/HCPCS: 76818

== ENCOUNTER 2024-10-21 14:57 | Outpatient (OUT) | payer BC, SELFPAY ==
--- OUTSIDE RECORDS SUMMARY | 2024-03-19 09:15 | XMS_ITS | Continuity of Care Document ---
Author [facility] [employer] [facility] Address [address] [place] [address] Phone Care Team Providers Care Controller Operations And Hr Manager Name Role Phone Sascha Anjali ARDON Unavailable Unavailable Procedures Procedure Date OFFICE/OUTPATIENT VISIT, EST OFFICE/OUTPATIENT VISIT, EST OFFICE/OUTPATIENT VISIT, EST POSTOP FOLLOW-UP VISIT POSTOP FOLLOW-UP VISIT Gastric Bypass LAP GASTRIC BYPASS/TIFFANI-EN-Y OFFICE/OUTPATIENT VISIT, EST OFFICE/OUTPATIENT VISIT, EST UPPER GI ENDOSCOPY, BIOPSY OFFICE/OUTPATIENT VISIT, EST OFFICE/OUTPATIENT VISIT, EST OFFICE/OUTPATIENT VISIT, EST OFFICE/OUTPATIENT VISIT, EST OFFICE/OUTPATIENT VISIT, EST POSTOP FOLLOW-UP VISIT POSTOP FOLLOW-UP VISIT LAP SLEEVE GASTRECTOMY Sleeve Gastrectomy OFFICE/OUTPATIENT VISIT, EST OFFICE/OUTPATIENT VISIT, NEW OFFICE CONSULTATION Advance Directives Directive Yes / No Effective Date File Name No Information Encounters Encounter Description Practice Location Reason(s) For Visit Diagnoses Date Provider Providers Copied on Encounter OFFICE/OUTPATI ENT VISIT, [facility] [employer] [facility], [address] [facility] [address], [place], [place], [id number], [place] tel:[phone] [facility] No Information Sascha Alba. [address] [place] [address] [address], [place], [place], [id number], [place]. tel:[phone] Referring Provider: Anjali Caicedo, [address] [place] [address] [address], [place], [address]. tel:[phone] OFFICE/OUTPATI ENT VISIT, [facility] [employer] [facility], [address] [place] [address] [address], [place], [place], [id number], [place] tel:[phone] [facility] No Information Endy Cordero. [address] [place] [address] [address], [place], [place], [id number], [place]. tel:[phone] Referring Provider: Gil Bentley, [address] [place] [address] [address], [place], [address]. tel:[phone] OFFICE/OUTPATI ENT VISIT, [facility] [employer] [facility], [address] [place] [address] [address], [place], [place], [id number], [place] tel:[phone] [facility] No Information Endy Cordero. [address] [place] [address] [address], [place], [place], [address], [place]. tel:[phone] Referring Provider: Gil Bentley, [address] [place] [address] [address], [place], [address]. tel:[phone] [facility], [address] [place] [address] [address], [place], [place], [id number], [place] tel:[phone] [facility] No Information Sascha Alba. [address] [place] [address] [address], [place], [place], [address], [place]. tel:[phone] Referring Provider: Anjali Caicedo, [address] [place] [address] [address], [place], [address]. tel:[phone] [facility], [address] [place] [address] [address], [place], [place], [id number], [place] tel:[phone] [facility] No Information Sascha Alba. [address] [facility] [address], [place], [place], [address], [place]. tel:[phone] Referring Provider: Anjali Caicedo, [address] [place] [address] [address], [place], [address]. tel:[phone] [facility], [address] [place] [address] [address], [place], [place], [id number], [place] tel:[phone] [facility] IP No Information Sascha Alba. [address] [place] [address] [address], [place], [place], [address], [place]. tel:[phone] Referring Provider: Anjali Caicedo, [address] [place] [address] [address], [place], [address]. tel:[phone] [employer] [facility], [address] [place] [address] [address], [place], [place], [id number], [place] tel:[phone] [facility] IP No Information Endy Cordero. [address] [place] [address] [address], [place], [place], [address], [place]. tel:[phone] Referring Provider: Gil Bentley, [address] [place] [address] [address], [place], [address]. tel:[phone] OFFICE/OUTPATI ENT VISIT, [facility] [employer] [facility], [address] [place] [address] [address], [place], [place], [id number], [place] tel:[phone] [facility] No Information Endy Cordero. [address] [place] [address] [address], [place], [place], [id number], [place]. tel:[phone] Referring Provider: Gil Bentley, [address] [place] [address] [address], [place], [address]. tel:[phone] OFFICE/OUTPATI ENT VISIT, [facility] [employer] [facility], [address] [place] [address] [address], [place], [place], [id number], [place] tel:[phone] [facility] No Information Sascha Alba. [address] [facility] [address], [place], [place], [id number], [place]. tel:[phone] Referring Provider: Anjali Caicedo, [address] [place] [address] [address], [place], [address]. tel:[phone] [facility], [address] [place] [address] [address], [place], [place], [address], [place] tel:[phone] [facility] No Information Endy Cordero. [address] [facility] [address], [place], [place], [address], [place]. tel:[phone] Referring Provider: Gil Bentley, [address] [place] [address] [address], [place], [address]. tel:[phone] OFFICE/OUTPATI ENT VISIT, [facility] [employer] [facility], [address] [place] [address] [address], [place], [place], [id number], [place] tel:[phone] [facility] No Information Sascha Alba. [address] [place] [address] [address], [place], [place], [id number], [place]. tel:[phone] Referring Provider: Anjali Caicedo, [address] [place] [address] [address], [place], [address]. tel:[phone] OFFICE/OUTPATI ENT VISIT, [facility] [employer] [facility], [address] [place] [address] [address], [place], [address], [place] tel:[phone] [facility] No Information Sascha Alba. [address] [place] [address] [address], [place], [place], [address], [place]. tel:[phone] Referring Provider: Anjali Caicedo, [address] [place] [address] [address], [place], [address]. tel:[phone] OFFICE/OUTPATI ENT VISIT, [facility] [employer] [facility], [address] [place] [address] [address], [place], [place], [address], [place] tel:[phone] [facility] No Information Sascha Alba. [address] [facility] [address], [place], [place], [id number], [place]. tel:[phone] Referring Provider: Anjali Caicedo, [address] [place] [address] [address], [place], [address]. tel:[phone] OFFICE/OUTPATI ENT VISIT, [facility] [employer] [facility], [address] [place] [address] [address], [place], [place], [address], [place] tel:[phone] [facility] No Information Sascha Alba. [facility] [address], [place], [place], [address], [place]. tel:[phone] Referring Provider: Anjali Caicedo, [address] [place] [address] [address], [place], [address]. tel:[phone] OFFICE/OUTPATI ENT VISIT, [facility] [employer] [facility], [address] [place] [address] [address], [place], [place], [address], [place] tel:[phone] [facility] No Information Sascha Alba. [address] [place] [address] [address], [place], [place], [address], [place]. tel:[phone] Referring Provider: Anjali Caicedo, [address] [place] [address] [address], [place], [address]. tel:[phone] [facility], [address] [place] [address] [address], [place], [place], [id number], [place] tel:[phone] [facility] No Information Sascha Alba. [address] [place] [address] [address], [place], [place], [address], [place]. tel:[phone] Referring Provider: Anjali Caicedo, [address] [place] [address] [address], [place], [address]. tel:[phone] [facility], [address] [place] [address] [address], [place], [id number], [place] tel:[phone] [facility] No Information Sascha Alba. [address] [facility] [address], [place], [place], [address], [place]. tel:[phone] Referring Provider: Anjali Caicedo, [address] [facility] [address], [place], [address]. tel:[phone] [facility], [address] [place] [address] [address], [place], [place], [address], [place] tel:[phone] [facility] IP No Information Endy Cordero. [address] [place] [address] [address], [place], [place], [address], [place]. tel:[phone] Referring Provider: Gil Bentley, [address] [place] [address] [address], [place], [address]. tel:[phone] [facility], [address] [place] [address] [address], [place], [place], [address], [place] tel:[phone] [facility] IP No Information Sascha Alba. [address] [place] [address] [address], [place], [place], [address], [place]. tel:[phone] Referring Provider: Anjali Caicedo, [address] [place] [address] [address], [place], [address]. tel:[phone] OFFICE/OUTPATI ENT VISIT, [facility] [employer] [facility], [address] [place] [address] [address], [place], [place], [address], [place] tel:[phone] [facility] No Information Endy Cordero. [address] [place] [address] [address], [place], [place], [address], [place]. tel:[phone] Referring Provider: Gil Bentley, [address] [place] [address] [address], [place], [address]. tel:[phone] OFFICE/OUTPATI ENT VISIT, [facility] [employer] [facility], [address] [place] [address] [address], [place], [place], [id number], [place] tel:[phone] [facility] No Information Endy Cordero. [address] [facility] [address], [place], [place], [id number], [place]. tel:[phone] Referring Provider: Gil Bentley, [address] [facility] [address], [place], [address]. tel:[phone] OFFICE CONSULTATION [facility], [address] [place] [address] [address], [place], [place], [address], tel:[phone] [facility] No Information Endy Cordero. [address] [place] [address] [address], [place], [place], [address], [place]. tel:[phone] Referring Provider: Gil Bentley, [address] [place] [address] [address], [place], [address]. tel:[phone] Family History Family Member Type Diagnosis Age At Onset No Information Payers Payer name Insurance type Covered democrat ID James sanmarianne(s) [employer] [place] [employer] CI [id number] Social History Type Description Quantity Date Captured Comments Sex Female Smoking Status No Information Chief Complaint And Reason For Visit No Information Reason For Referral Reason For Referral No Information History Of Present Illness Encounter Date Complaint History Of Prese nt Illness No Information Functional Status Date Functional Assessmen t No Information Instructions Date Instruction Additional Infor mation No Information Assessments Type Assessment Date No Information Patient Care Teams Name Effective Dates (start - stop) Status Members No Information
--- OUTSIDE RECORDS SUMMARY | 2024-09-22 06:14 | XMS_ITS | Continuity of Care Document ---
[facility] Address [address] [place] [address] Phone Care Team Providers Care Rail Equipment Operator Name Role Phone Lauri Jimenez DMD Unavailable Unavailable Allergies, Adverse Reactions, Alerts Substance Reaction Status Criticality CLINDAMYCIN HCL Active No Informati on Penicillins Active No Information Medications Medication Instructions Dosage Effective Dates (start - stop) Status Comments magnesium 200 mg tablet - Active Phenagil 3.5 mg-10 mg tablet - Active cyclobenzaprine (bulk) 100 % powder - Active omeprazole 40 mg capsule,delayed release take 1 capsule by oral route every day before a meal 40 MG - Active buspirone 5 mg tablet take 1 tablet by o ral route 2 times every day 5 MG - Active iron 325 mg (65 mg iron) tablet take 1 tablet by oral route every day 325 MG - Active Problems Condition Type Effective Dates (start - stop) [facility] Status Comments No Known Problems Procedures Procedure Date Intraoral-periapical 1st Film 5 Bitewig-single Film Oral Hygiene Instruction Limited Oral Eval High Risk Prophylaxis Adult Nutrit Couns For Control Of [place] Dis Jul Oral Hygiene Instruction Periodic Oral Eval Estab Patient 2024 Oral Hygiene Instruction Resin Composite 1s; Posterior 4 Resin Composite 1s; Posterior 4 Prophylaxis Adult Nutrit Couns For Control Of [place] Dis Oct Oral Hygiene Instruction Prophylaxis Adult Nutrit Couns For Control Of [place] Dis Jan Oral Hygiene Instruction Oral Hygiene Instruction Resin Composite 2s; Posterior Intraoral-complete Series (bw) Oral Hygiene Instruction Comp Oral Eval New/estab Patient 2022 Advance Directives Directive Yes / No Effective Date File Name No Information Encounters Encounter Description Practice Location Reason(s) For Visit Diagnoses Date Provider Providers Copied on Encounter [facility], [address] [place] [address], [id number], [place] tel:[phone] [facility] (chief complaint) Body mass index [BMI] 32.0-32.9, adultEncounter for screening for dental disorders Tony Proctoral. [address] [place] [address], [id number] , [place]. tel:[phone] [facility], [address] [place] [address], [id number], [place] tel:[phone] [facility] (chief complaint) Encounter for screening for dental disordersBody mass index [BMI] 32.0-32.9, adult Tony DMD Lauri. [address] [place], [place], [id number] , [place]. tel:[phone] [facility], [address] [place] [address], [id number], [place] tel:[phone] [facility] filling (chief complaint) Encounter for screening for dental disorders Tony DMD Lauri. [address] [place], [place], [id number] , [place]. tel:[phone] [facility], [address] [place] [address], [id number], [place] tel:[phone] [facility] [place] (chief complaint) Encounter for screening for dental disorders Tony DMD Lauri. [address] [place], [place], [id number] , [place]. tel:[phone] [facility], [address] [place] [address], [id number], [place] tel:[phone] [facility] [place] ([place] complaint) Encounter for screening for dental disorders Tony Carreon. [address], [place], [id number] , [place]. tel:[phone] [facility], [address] [place] [address], [id number], [place] tel:[phone] [facility] DAVIDA (chief complaint) Encounter for screening for dental disorders Tony Carreon. [address], [place], [id number] , [place]. tel:[phone] [facility], [address] [place] [address], [id number], tel:[phone] [facility] (chief complaint) Encounter for screening for dental disorders Tony Carreon. [address], [place], [id number] , [place]. [phone] Family History Family Member Type Diagnosis Age At Onset No Information Payers Payer name Insurance type Covered alliance party ID Authoriza tion(s) No Information Social History Type Description Quantity Date Captured Comments Alcohol Use Details Unknown Caffeine Use Details Unknown Tobacco Use Status Current non-smoker Smoking Status Never smoker Non-Smoking Tobacco Use Details : No Details Available : No Details Available Sex Female Sexual Orientation Straight or heterosexual Gender Identity Female Vital Signs Date / Time: Height Weight BMI Pulse Rate Blood Pressure Temperature Respiratory Rate Body Surface Area Head Circumference Head Circ. Percentile Wt./Abraham. Percentile BMI percentile Pulse Ox Inhaled Ox 10:36 AM 61.00 in 78.925 kg (174.00 lbs) 32.8 8 kg/m eter (2) 91 /min 126/91 mm[Hg] 98.70 F 1.84 meter(2) Chief Complaint And Reason For Visit From encounter dated '09/22/2024 10:14'. DL (chief complaint) Reason For Referral Reason For Referral No Information Plan Of Treatment Date Type Action Status Goal Tdap Vaccine. Due on 2024 due Goal Depression screening. Due on due Goal PRAPARE ASSESSMENT. Due on M due Goal RLP. Due on due Goal Tdap. Due on due Goal Influenza vaccine. Due on Ma due Goal PAP. Due on due Goal Unhealthy drug use screening . Due on due Goal Hepatitis C screening. Due o n due Goal Dietary manageme nt education, guidance, and counseling completed Goal Tdap. Due on due Goal PAP. Due on due Goal Hepatitis C screening. Due o n due Goal Unhealthy drug use screening . Due on due Goal Depression screening. Due on due Goal PRAPARE ASSESSMENT. Due on A due Goal Tdap Vaccine. Due on 2024 due Goal RLP. Due on due Goal Influenza vaccine. Due on Ap r due Goal Hep A. Due on du e Goal Dietary manageme nt education, guidance, and counseling completed Goal RLP. Due on due Goal Influenza vaccine. Due on No due Goal Unhealthy drug use screening . Due on due Goal Depression screening. Due on due Goal Tdap. Due on due Goal PAP. Due on due Goal PRAPARE ASSESSMENT. Due on N due Goal Tdap Vaccine. Due on 2023 due Goal Hepatitis C screening. Due o n due Goal PAP. Due on due Goal Tdap Vaccine. Due on 2023 due Goal Unhealthy drug use screening . Due on due Goal Tdap. Due on due Goal Hepatitis C screening. Due o n due Goal PRAPARE ASSESSMENT. Due on J due Goal Depression screening. Due on due Goal Influenza vaccine. Due on due Goal RLP. Due on due Goal Hep A. Due on du e Goal RLP. Due on due Goal Tdap. Due on due Goal PAP. Due on due Goal Tdap Vaccine. Due on 2022 due Goal PRAPARE ASSESSMENT. Due on O due Goal Depression screening. Due on due Goal Influenza vaccine. Due on Oc due Goal Unhealthy drug use screening . Due on due Goal Hepatitis C screening. Due o n due Goal Tdap Vaccine. Due on 2022 due Goal PAP. Due on due Goal Depression screening. Due on due Goal Tdap. Due on due Goal PRAPARE ASSESSMENT. Due on S due Goal Influenza vaccine. Due on Se p due Goal RLP. Due on due Goal RLP. Due on due Goal Influenza vaccine. Due on Au due Goal PRAPARE ASSESSMENT. Due on A due Goal Tdap. Due on due Goal Depression screening. Due on due Goal PAP. Due on due Goal Tdap Vaccine. Due on 2022 due Referral Ordered: Xena Mccallum timeframe: 6 Months. (related to Body mass index [BMI] 32.0-32.9, adult) ordered Appointment Tan Colon BOOKED History Of Present Illness Encounter Date Complaint History Of Prese nt Illness DL pa sam filling filling PA SAM PA SAM DAVIDA DAVIDA DN Functional Status Date Functional Assessmen t No Information Instructions Date Instruction Additional Infor sabine Dietary management e ducation, guidance, and counseling Related to Body mass index [BMI] 32.0-32.9, adult Dietary management e ducation, guidance, and counseling Related to Body mass index [BMI] 32.0-32.9, adult Giving encouragement to exercise Related to Body mass index [BMI] 32.0-32.9, adult Assessments Type Assessment Date assessment Body mass index [BMI] 32.0-32.9, adult Patient Care Teams Name Effective Dates (start - stop) Status Members No Information
--- OUTSIDE RECORDS SUMMARY | 2024-10-07 13:50 | XMS_ITS | Encounter Summary ---
Author Organization [facility] Address [address] [facility] [place] [address] Care Team Providers Care Electric Meter Tester Shop Name Role Phone Xena Mccallum MD Primary Care Provider [phone] Isabel Li PACKAGE DELIVERY ROOM SERVICE RUNNER Unavailable Reason for Visit * Reason Comments Routine Visit Encounter Details Date Type Department Care Team (Late Contact Info) Description 10/07/2024 1:50 PM EDT Routine [facility] [address] [place] [phone] Douglas Lewis, DO [address] [place], [place] [address] Third trimester ([facility]); 33 weeks gestation of ([facility]) Social History Tobacco Use Types Packs/Day Years [...] Active Ambulatory Problems Diagnosis Date Noted Depression ([facility]) 06/18/2023 Anemia 06/18/2023 Anxiety 06/18/2023 Recurrent nephrolithiasis 09/05/2016 Essential thrombocythemia ([facility]) 06/18/2023 Gastric bypass status for obesity 08/10/2021 [...] COSMETIC SURGERY 05/17/2020 [facility] [place] ELBOW SURGERY Left 2000 OTHER SURGICAL HISTORY [...] nursing note reviewed. Exam conducted with a sunglass clip attacher present. Vitals: Estimated body mass index is [...] Care Team (Late st Contact Info) Description 10/28/2024 9:00 AM EDT Routine [facility] [address] [place] [phone] Maddie Chan PA [address] [facility] [address] [place] [address] 11/04/2024 10:50 AM EDT Routine [facility] [address] [place] [phone] Douglas Lewis DO [address] [facility] [place] [address] documented as of this encounter Visit Diagnoses Diagnosis Third trimester ([facility]) state, incidental 33 weeks gestation of ([facility]) documented in this encounter Care Teams Electric Meter Tester Shop Relationship Specialty Start Date End Date Xena Mccallum MD [address] [place] [address] PCP - General Family Medicine 09/04/22 Isabel Li PACKAGE DELIVERY ROOM SERVICE RUNNER [facility] 10/28/23 documented as of this encounter
--- OUTSIDE RECORDS SUMMARY | 2024-10-21 13:30 | XMS_ITS | Encounter Summary ---
Author Organization [facility] Address [address] [facility] [place] [address] Care Team Providers Care Lasting Machine Operator Bed Name Role Phone Xena Mccallum MD Primary Care Provider [phone] Isabel Li STOREROOM SUPERVISOR Unavailable Reason for Visit * Reason Comments Routine Visit Encounter Details Date Type Department Care Team (Late Contact Info) Description 10/21/2024 1:30 PM EDT Routine [facility] OB [address] [place] [address] Douglas Lewis, DO [address] [place], [facility]11 Nausea (Primary Dx); Third trimester ([facility]); 35 weeks gestation of ([facility] Anxiety, generalized Social History Tobacco Use Types [...] AM EDT Routine [facility] BCP OB [address] [facility] [place] [phone] Maddie Chan PA [address] [facility] [address] [place], [place] [address] 11/04/2024 10:50 AM EDT Routine [facility] B[facility] OB [address] [facility] [place] [phone] Douglas Lewis DO [address] [facility] [address] [place], [place] [id number] Scheduled Orders Name Type Priority Associated Diagnoses Orde r Schedule CULTURE, GROUP B STREP WITH SUSCEPTIBLITY Lab Routine Third trimester ([facility]) Expected: 10/21/2024, Expires: 10/21/2025 documented as of this encounter Procedures Procedure Name Priority Date/Time Associated Diagnosis Comments POCT URINALYSIS DIPSTICK Routine 10/21/2024 2:12 PM EDT Third trimester ([facility]) documented in this encounter Results * (ABNORMAL) [...] - Positive Urine 10/21/2024 2:12 PM EDT Douglas Lewis DO POINT OF CARE TEST ENTER/EDIT OR DERABLES Edited Result - Final documented in this encounter Visit Diagnoses Diagnosis Nausea- Primary Nausea alone Third trimester ([facility]) state, incidental 35 weeks gestation of ([facility]) Anxiety, generalized documented in this encounter Care Teams Lasting Machine Operator Bed Relationship Specialty Start Date End Date Xena Mccallum MD [address] [place] [address] PCP - General Family Medicine 09/04/22 Isabel Li NP [facility] 10/28/23 documented as of this encounter
--- NOTE | 2024-10-21 14:40 | US_ITS ---
[address] [address] Patient Name: SAMREEN MARS MRN: [id number] date: 1995 Sex: F Assigned Patient Location: US Current Patient Location: US Accession/Order Number: [id number] Exam Date: 10/21/2024 16:11 Report Date: 10/21/2024 16:12 At the request of: CLINTON GALLARDO DO Procedure: US OB BPP w non-stress Biophysical profile. Reason for exam: History of gastric bypass. COMPARISON: BPP 10/14/2024. TECHNIQUE: Transabdominal imaging of the gravid uterus was obtained. FINDINGS: Freight Adjuster reports a BPP of 8 out of 8. PATITO is normal at 20.6 cm. heart rate 147 bpm. US/US OB BPP w non-stress IMPRESSION: BPP 8 out of 8. Impression dictated by: Isac Becker Jr., D.O. 10/21/2024 4:12 PM Dictation Location: [place] [address] Electronically authenticated by: [id number] Y Date: 10/21/2024 16:12
--- OUTSIDE RECORDS SUMMARY | 2024-10-21 15:00 | XMS_ITS | Encounter Summary ---
Author Organization [facility] Address [address] [place] [address] Care Team Providers Care Ship Yard Electrical Person Name Role Phone Narinder Hernandez MD Primary Care Provider [phone] Isabel Li DENTAL RECEPTIONIST Unavailable Encounter Details Date Type Department Care [...] Department Care Team (Late Contact Info) Description 10/28/2024 9:00 AM EDT Routine [facility] OB [address] [place] [phone] Maddie Chan PA [address] [facility] [place] [address] 11/04/2024 10:50 AM EDT Routine [facility] B[facility] OB [address] [place] [address] [place] [phone] Clinton Lewis [address] [facility] [place] [address] documented as of this encounter Procedures Procedure Name Priority Date/Time Associated Diagnosis Comments US OB TRANSVAGINAL 04/17/2024 11 :10 AM EST documented in this encounter Results * US OB TRANSVAGINAL (04/17/2024 11:10 AM EST) Anatomical Region Laterality Modality Other 04/17/2024 11:1 0 AM EST Narrative 04/17/2024 2:43 PM EST [address] [address] Ultrasound Report Signed Patient: TAN MARS MR#: [id number] : 1995 Acct:[id number] Age/Sex: 29 / F ADM Date: 04/17/24 Loc: [facility] Attending Dr: Clinton Lewis D.O. Ordering Physician: Clinton Lewis D.O. Date of Service: 04/17/24 Procedure(s): US OB transvaginal Accession Number(s): [id number] cc: NARINDER HERNANDEZ ; Clinton Lewis D.O. The [address] [address] Patient Name: TAN MARS MRN: [id number] date: 1995 Sex: F Assigned Patient Location: [facility] Current Patient Location: [facility] Accession/Order Number: [id number] Exam Date: 04/17/2024 09:28 Report Date: 04/17/2024 [...] Signed By: 04/17/24 1443 DD/ 1110 TD/TT: Sand Mixer: Procedure Note Radiology, Radiologist, MD - 04/17/2024 [place] [address] Ultrasound Report Signed Patient: TAN MARS RMR#: [id number] : 1995Acct:[id number] Age/Sex: 29 / FADM Date: 04/17/24 Loc: [facility] Attending Dr: Clinton Lewis D.O. Ordering Physician: Clinton Lewis D.O. Date of Service: 04/17/24 Procedure(s): US OB transvaginal Accession Number(s): [id number] cc: NARINDER HERNANDEZ Corey D.O. The [address] [address] Patient Name: TAN MARS MRN: [id number] date: 1995 Sex: F Assigned Patient Location: [facility] Current Patient Location: [facility] Accession/Order Number: [id number] Exam Date: 04/17/2024 09:28 Report Date: 04/17/2024 [...] M.D. Signed By:04/17/24 1443 DD/ 1110 TD/TT: Sand Mixer: us Generic External Data Provider [facility] Final Result documented in this encounter Visit Diagnoses Not on filedocumented in this encounter Care Teams Ship Yard Electrical Person Relationship Specialty Start Date End Date Narinder Hernandez MD [address] [place] [address] PCP - General Family Medicine 09/04/22 Isabel Li NP PCP - [facility] 10/28/23 documented as of this encounter
--- OUTSIDE RECORDS SUMMARY | 2024-10-21 15:00 | XMS_ITS | Encounter Summary ---
Author Organization [facility] Address [address] [facility] [place] [address] Care Team Providers Care Supervisor Beehive Kiln Name Role Phone Narinder Hernandez MD Primary Care Provider [phone] Isabel Li CESSPOOL CLEANER Unavailable Encounter Details Date Type Department Care [...] OB [address] [place] [phone] Maddie Chan PA [address] [facility] [place] [address] 11/04/2024 10:50 AM EDT Routine [facility] OB [address] [place] [address] [place] [address] Clinton Lewis DO [address] [facility] [address] [place]ela [place], [place] [address] documented as of this encounter Procedures Procedure Name Priority Date/Time Associated Diagnosis Comments US OB BPP W NON-STRESS 10/07/2024 9:21 AM EDT documented in this encounter Results * US OB BPP W NON-STRESS (10/07/2024 9:21 AM EDT) Anatomical Region Laterality Modality Other 10/07/2024 9:21 AM EDT Narrative 10/07/2024 9:24 AM EDT [address] [address] Ultrasound Report Signed Patient: TAN MARS MR#: [id number] : 1995 Acct:[id number] Age/Sex: 29 / F ADM Date: 10/07/24 Loc: US Attending Dr: Clinton Lewis D.O. Ordering Physician: Clinton Lewis D.O. Date of Service: 10/07/24 Procedure(s): US OB BPP w non-stress Accession Number(s): [id number] cc: NARINDER HERNANDEZ Corey D.O. The [address] [address] Patient Name: TAN MARS MRN: [id number] date: 1995 Sex: F Assigned Patient Location: [facility] Current Patient Location: Accession/Order Number: [id number] Exam Date: 10/07/2024 09:20 Report Date: 10/07/2024 [...] Morales M.D. 10/07/2024 9:21 AM Dictation Location: [place] [address] Electronically authenticated by: [id number] Y Date: 10/07/2024 09:21 Dictated By: Thelma Morales M.D. Signed By: 10/07/24923 DD/ 0 TD/TT: Industrial Sales Representative: Procedure Note Radiology, Radiologist, MD - 10/07/2024 [place] [address] Ultrasound Report Signed Patient: TAN MARS RMR#: [id number] : 1995Acct:[id number] Age/Sex: 29 / FADM Date: 10/07/24 Loc: US Attending Dr: Clinton Lewis D.O. Ordering Physician: Clinton Lewis D.O. Date of Service: 10/07/24 Procedure(s): US OB BPP w non-stress Accession Number(s): [id number] cc: NARINDER HERNANDEZ ; Clinton Lewis D.O. The [place] [id number] Patient Name: TAN MARS MRN: [id number] date: 1995 Sex: F Assigned Patient Location: [facility] Current Patient Location: Accession/Order Number: [id number] Exam Date: 10/07/2024 09:20 Report Date: 10/07/2024 [...] Morales M.D. 10/07/2024 9:21 AM Dictation Location: [place] [address] Electronically authenticated by: [id number] Y Date: 509:21 Dictated By: Thelma Morales M.D. Signed By:10/07/24923 DD/ 0 TD/TT: Industrial Sales Representative: us Generic External Data Provider [facility] Final Result documented in this encounter Visit Diagnoses Not on filedocumented in this encounter Care Teams Supervisor Beehive Kiln Relationship Specialty Start Date End Date Narinder Hernandez MD [address] [place] [address] PCP - General Family Medicine 09/04/22 Isabel Li NP [facility] 10/28/23 documented as of this encounter
--- OUTSIDE RECORDS SUMMARY | 2024-10-21 15:00 | XMS_ITS | Encounter Summary ---
Author Organization [facility] Address [address] [facility] [place] [address] Care Team Providers Care Automatic Toe Laster Name Role Phone Xena Mccallum MD Primary Care Provider [phone] Isabel Li MUNICIPAL CLERK Unavailable Encounter Details Date Type Department Care Team (Late st Contact Info) Description 11/11/2023 Orders Only [facility] OB [address] [place] [address] Maribell Peraza LPN [address] [facility] [place] [id number] Social History Tobacco Use Types Packs/Day Years [...] AM EDT Routine [facility] OB [address] [facility] [place] [address] Maddie Chan PA [address] [facility] [address] [place], [place] [id number] 11/04/2024 10:50 AM EDT Routine [facility] OB [address] [facility] [place] [address] Douglas Lewis [address] [facility] [place] [address] documented as of this encounter Procedures Procedure Name Priority Date/Time Associated Diagnosis Comments PAP SMEAR Routine 11/05/2023 12:00 AM EDT documented in this encounter Results * Pap Smear (11/05/2023 12:00 AM EDT) Swab Cervical swab / Unknown Debbie Nurse [facility] Bcp Ob LAB CYTOLOGY ORDERABLES Final Result EXTERNAL LAB documented in this encounter Visit Diagnoses Not on filedocumented in this encounter Care Teams Automatic Toe Laster Relationship Specialty Start Date End Date Xena Mccallum MD [address] [place] [address] PCP - General Family Medicine 09/04/22 Isabel Li NP PCP - [facility] 10/28/23 documented as of this encounter
--- OUTSIDE RECORDS SUMMARY | 2024-10-21 15:00 | XMS_ITS | Encounter Summary ---
Author Organization [facility] Address [address] [facility] [place] [address] Care Team Providers Care Junior Oracle Dba Name Role Phone Xena Mccallum MD Primary Care Provider [phone] Isabel Li LARRY CAR OPERATOR Unavailable Encounter Details Date Type Department Care Team (Late st Contact Info) Description 10/21/2024 Bamboo flowsheet [facility] OB [address] [place] [phone] Douglas Lewis, DO [address] [facility] [address] [place], [facility] Social History Tobacco Use Types Packs/Day Years [...] AM EDT Routine [facility] BCP OB [address] [facility] [place] [address] Maddie Chan PA [address] [facility] [place] [address] 11/04/2024 10:50 AM EDT Routine [facility] OB [address] [facility] [place] [address] Douglas Lewis DO [address] [facility] [address] [place], [place] [id number] documented as of this encounter Visit Diagnoses Not on filedocumented in this encounter Care Teams Junior Oracle Dba Relationship Specialty Start Date End Date Xena Mccallum MD [address] [place] [address] PCP - General Family Medicine 09/04/22 Isabel Li NP PCP - [facility] 10/28/23 documented as of this encounter
--- OUTSIDE RECORDS SUMMARY | 2024-10-21 15:00 | XMS_ITS | Encounter Summary ---
Author Organization [facility] Address [address] [facility] [place] [address] Care Team Providers Care Investigations Director Name Role Phone Xena Mccallum MD Primary Care Provider [phone] Isabel Li STAFF PHARMACIST [facility]PITAL Unavailable Reason for Visit * Reason Onset Date Comments Med Refill 10/20/2024 Encounter Details Date Type Department Care Team (Late st Contact Info) Description 10/20/2024 Refill [facility] OB [address] [place] [address] Douglas Lewis, DO [address] [place], [place] [address] Nausea; Mood changes Social History Tobacco Use Types Packs/Day Years [...] AM EDT Routine [facility] B[facility] OB [address] [facility] [place] [address] Maddie Chan PA [address] [facility] [address] [place], [place] [address] 11/04/2024 10:50 AM EDT Routine [facility] B[facility] OB [address] [place] [address] [place] [address] Douglas Lewis DO [address] [facility] [address] [place], [place] [id number] documented as of this encounter Visit Diagnoses Diagnosis Nausea Nausea alone Mood changes Unspecified episodic mood disorder documented in this encounter Care Teams Investigations Director Relationship Specialty Start Date End Date Xena Mccallum MD [address] [place] [address] PCP - General Family Medicine 09/04/22 Isabel Li NP PCP - [facility] 10/28/23 documented as of this encounter
--- OUTSIDE RECORDS SUMMARY | 2024-10-21 15:00 | XMS_ITS | Encounter Summary ---
Author Organization [facility] Address [address] [facility] [place] [address] Care Team Providers Care Account Service Representative Name Role Phone Xena Mccallum MD Primary Care Provider [phone] Isabel Li UROLOGY SURGEON Unavailable Encounter Details Date Type Department Care Team (Late st Contact Info) Description 05/18/2024 Abstract [facility] OB [address] [place] [address] Douglas Lewis, DO [address] [place], [facility] Social History Tobacco Use Types Packs/Day Years [...] EDT Routine [facility] BCP OB [address] [facility] [place] [address] Maddie Chan PA [address] [facility] [address] [place], [place] [address] 11/04/2024 10:50 AM EDT Routine [facility] B[facility] OB [address] [place] [address] [place] [address] Douglas Lewis DO [address] [facility] [address] [place], [place] [address] documented as of this encounter Visit Diagnoses Not on filedocumented in this encounter Care Teams Account Service Representative Relationship Specialty Start Date End Date Xena Mccallum MD [address] [place] [address] PCP - General Family Medicine 09/04/22 Isabel Li NP PCP - [facility] 10/28/23 documented as of this encounter
--- OUTSIDE RECORDS SUMMARY | 2024-10-21 15:00 | XMS_ITS | Encounter Summary ---
Author Organization [facility] Address [address] [facility] [place] [address] Care Team Providers Care Marble Mason Name Role Phone Xena Mccallum MD Primary Care Provider [phone] Xena Mccallum MD Unavailable Isabel Li NP Unavailable Encounter Details Date Type Department Care Team (Late st Contact Info) Description 08/10/2023 Abstract [facility] [address] [place] [address] Isabel Li SPEAR FISHER Social History Tobacco Use Types Packs/Day Years [...] AM EDT Routine [facility] BCP OB [address] [place] [address] Maddie Chan PA [address] [facility] [address] [place], [place] [address] 11/04/2024 10:50 AM EDT Routine [facility] B[facility] OB [address] [place] [address] Douglas Lewis, DO [address] [facility] [address] [place], [place] [address] documented as of this encounter Visit Diagnoses Not on filedocumented in this encounter Care Teams Marble Mason Relationship Specialty Start Date End Date Xena Mccallum MD [address] [place], [place] [phone] PCP - General Family Medicine 09/04/22 Xena Mccallum MD [address] [place], [place] [address] PCP - [facility] 07/29/23 Isabel Li NP PCP - [facility] 10/28/23 documented as of this encounter
--- OUTSIDE RECORDS SUMMARY | 2024-10-21 15:00 | XMS_ITS | Encounter Summary ---
Author Organization [facility] Address [address] [facility] [place] [address] Care Team Providers Care Oracle Hrms Developer Name Role Phone Xena Mccallum MD Primary Care Provider [phone] Xena Mccallum MD Unavailable Isabel Li NP Unavailable Encounter Details Date Type Department Care Team (Late st Contact Info) Description 07/22/2023 Abstract [facility] [address] [place] [address] Isabel Li BRIDGE SAW OPERATOR Social History Tobacco Use Types Packs/Day [...] AM EDT Routine [facility] B[facility] OB [address] [facility] [place] [address] Maddie Chan PA [address] [facility] [address] [place], [place] [address] 11/04/2024 10:50 AM EDT Routine [facility] OB [address] [facility] [place] [address] Douglas Lewis, DO [address] [facility] [address] [place], [place] [address] documented as of this encounter Visit Diagnoses Not on filedocumented in this encounter Care Teams Oracle Hrms Developer Relationship Specialty Start Date End Date Xnea Mccallum MD [address] [place], [place] [id number] PCP - General Family Medicine 09/04/22 Xena Mccallum MD [address] [place], [place] [address] PCP - [facility] 07/29/23 Isabel Li NP PCP - [facility] 10/28/23 documented as of this encounter
--- OUTSIDE RECORDS SUMMARY | 2024-10-21 15:00 | XMS_ITS | Clinical Summary ---
Author Organization [facility] Address [address] [facility] [place] [address] Care Team Providers Care Manager Publishing Name Role Phone Xena Hernandez MD Primary Care Provider [phone] Isabel Li DIRECTOR INDEPENDENT Unavailable Allergies Active Allergy Reactions Criticality Noted Date Comments Clindamycin Swelling 06/18/2023 Other Reaction(s): Tongue swelling Lamotrigine 06/18/2023 Other Reaction(s): worsened depression Morphine Hives 06/18/2023 Penicillins Rash,Unknown Low 04/26/2016 Medications busPIRone (Buspar) 10 MG tabletIndicatio ns:Anxiety Take 1 tablet (10 mg) by mouth Daily as needed (anxiety) Taking half a tablet 90 tablet 1 01/09/20 24 025 Active cyclobenzaprine (Flexeril) 5 MG tabletIndicatio ns:Nonintractab le headache, unspecified chronicity pattern, unspecified headache type,Cramp and spasm Take 1 tablet (5 mg) by mouth 2 (two) times a day as needed for muscle spasms 60 tablet 09/17/19 25 Active MV-Min-Fe Fum-FA-DHA ( 1 PO) Take 1 tablet by mouth Daily Active Calcium Carbonate (CALCIUM 500 PO) Take 1 tablet by mouth Daily Active Ferrous Sulfate (iron) 325 (65 Fe) MG tablet Take 1 tablet by mouth Daily Active promethazine (Phenergan) 12.5 MG tabletIndicatio ns:Nausea Take 1 tablet (12.5 mg) by mouth every 6 (six) hours if needed for nausea or vomiting for up to 30 doses Take 1 tablet by mouth every 6 hours as needed for nausea. 30 tablet 2 10/21/19 25 Active citalopram (CeleXA) 20 MG tabletIndicatio ns:Mood changes Take 1 tablet (20 mg) by mouth Daily 30 tablet 11 10/21/19 25 026 Active promethazine (Phenergan) 12.5 MG tabletIndicatio ns:Nausea Take 1 tablet (12.5 mg) by mouth every 6 (six) hours if needed for nausea or vomiting for up to 30 doses Take 1 tablet by mouth every 6 hours as needed for nausea. 30 tablet 10/22/19 25 Active busPIRone (Buspar) 10 MG tabletIndicatio ns:Anxiety, generalized Take 1 tablet (10 mg) by mouth if needed (1/2 tablet prn at bedtime) 60 tablet 10/22/19 25 025 Active Ubrogepant (Ubrelvy) 100 MG tabletIndicatio ns:Intractable [...] spasms 270 tablet 02/20/20 24 025 Discontinued promethazine (Phenergan) 12.5 MG tabletIndicatio ns:Nausea Take 1 tablet (12.5 mg) by mouth every 6 (six) hours if needed for nausea or vomiting for up to 30 doses Take 1 tablet by mouth every 6 hours as needed for nausea. 30 tablet 2 08/04/19 25 025 Discontinued(Re order) magnesium oxide (Mag-Ox) 400 MG tabletIndicatio ns:Nonintractab le headache, unspecified chronicity pattern, unspecified headache type Take 1.5 tablets (600 mg) by mouth Daily 45 tablet 3 08/14/19 25 025 citalopram (CeleXA) 20 MG tabletIndicatio ns:Mood changes Take 1 tablet (20 mg) by mouth Daily 30 tablet 11 09/09/19 25 025 Discontinued(Re order) cyclobenzaprine (Flexeril) 5 MG tabletIndicatio ns:Nonintractab le headache, unspecified chronicity pattern, unspecified headache type,Cramp and spasm Take 1 tablet (5 mg) by mouth in the morning and 1 tablet (5 mg) before bedtime. Do all this for 15 doses. 15 tablet 09/12/19 25 025 Discontinued Active Problems Problem Noted Date Diagnosed Date 22 weeks gestation of ([facility]) 2024 Second trimester ([facility]) 07/16/2024 Depression 06/18/2023 Anemia 06/18/2023 Anxiety 06/18/2023 Essential thrombocythemia 06/18/2023 Gastroesophageal reflux disease 06/18/2023 Insomnia 06/18/2023 Gastric bypass status for obesity 08/10/2021 Iron deficiency anemia secon efren to inadequate dietary iron intake 08/10/2021 Recurrent nephrolithiasis 09/05/2016 Estimated Date of Delivery Comme nts Yes 11/19/2024 Based on last me nstrual period of 02/13/2024 Encounters Date Type Department Care Team Description 10/21/2024 1:30 PM EDT Routine [facility] [address] [place] [address] Clinton Lewis DO Nausea (Primary Dx); Third trimester ([facility]); 35 weeks gestation of ([facility]); Anxiety, generalized 10/21/2024 Bamboo flowsheet [facility] OB [address] [place], [place] [address] [address] Clinton Lewis DO 10/20/2024 Refill [facility] OB [address] [place] [address] [place] [address] Clinton Lewis DO Nausea; Mood changes 10/20/2024 Refill [facility] [address] [place] [phone] Xena Hernandez MD Anxiety 10/14/2024 Clinisync Result Encounter [facility] External Department Unsolicited Provider, Generic External Data 10/07/2024 1:50 PM EDT Routine [facility] OB [address] [facility] [place] [address] Clinton Lewis, Third trimester ([facility]); 33 weeks gestation of ([facility]) 10/07/2024 Clinisync Result Encounter [facility] External Department Unsolicited Provider, Generic External Data 09/23/2024 11:30 AM EDT Routine [facility] OB [address] [place] [address] [place] [address] Clinton Lewis, 31 weeks gestation of ([facility]); Third trimester ([facility]) 09/23/2024 Bamboo flowsheet [facility] OB [address] [place] [address] [place] [address] Clinton Lewis DO 09/15/2024 11:30 AM EDT Ancillary Procedure [facility] [address] [place] [address] History of gastric bypass 09/10/2024 Telephone [facility] [address] [place] [address] Ag Pin[place]ET[place], [place] 09/09/2024 Telephone [facility] OB [address] [place] [address] [place] [address] Leticia PinaPRINCETON, [place] 09/08/2024 9:20 AM EDT Routine [facility] OB [address] [place] [address] [place] [address] Clinton Lewis, Third trimester ([facility]); 29 weeks gestation of ([facility]); History of gastric bypass; Mood changes 09/08/2024 Bamboo flowsheet [facility] OB [address] [place] [address] [place] [address] Clinton Lewis DO 08/13/2024 9:10 AM EDT Routine [facility] [address] [place] [address] Clinton Lewis DO Second trimester ([facility]); 26 weeks gestation of ([facility]); Nonintractable headache, unspecified chronicity pattern, unspecified headache type 08/13/2024 Bamboo flowsheet [facility] [address] [place] [address] Clinton Lewis DO 08/03/2024 Telephone [facility] [address] [place] [address] Cecy Nicholas MA 08/03/[address] [facility] [address] [place] [address] Cecy Nicholas MA Nonintractable headache, unspecified chronicity pattern, unspecified headache type; Nausea 07/22/2024 Clinisync Result Encounter [facility] External Department Unsolicited Provider, Generic External Data from Last 3 Months Immunizations Immunization Administration [...] Pressure 120/84 10/21/2024 2:00 PM EDT Pulse 82 01/09/2024 3:59 PM EDT Temperature - - Respiratory Rate 18 01/09/2024 3:59 PM EDT Oxygen Saturation 99% 01/09/2024 3:59 PM EDT Inhaled Oxygen Concentration - - Weight 80.1 kg (176 lb 8 oz) 10/21/2024 2:00 PM EDT Height 154.9 cm (5' 1 ) 01/09/2024 3:59 PM EDT Body Mass Index 33.35 01/09/2024 3:59 PM EDT Plan of Treatment Upcoming Encounters Date Type Department Care Team (Late st Contact Info) Description 10/28/2024 9:00 AM EDT Routine [facility] OB [address] [facility] [place] [address] Maddie Chan PA [address] [facility] [facility] [address] [place], [place] [phone] 11/04/2024 10:50 AM EDT Routine [facility] [address] [facility] [place] [address] Clinton Lewis DO [address] [facility] [place] [address] Health Maintenance Due Date Last Done Comments Influenza Vaccine (Season Ended) 2024 05/03/2020, 01/29/2018, 02/21/2016 Procedures Procedure Name Priority Date/Time Associated Diagnosis Comments POCT URINALYSIS DIPSTICK Routine 10/21/2024 2:12 PM EDT Third trimester ([facility]) US OB BPP W NON-STRESS 10/14/2024 9:51 AM EDT US OB BPP W NON-STRESS 10/07/2024 9:21 AM EDT POCT URINALYSIS DIPSTICK Routine 09/23/2024 11:52 AM EDT 31 weeks gestation of ([facility]) Third trimester ([facility]) US OB FOLLOW UP TRANSABDOMINAL APPROACH Routine 09/15/2024 12:02 PM EDT History of gastric bypass MLR HEMOGLOBIN A1C Routine 07/22/2024 1: 19 PM EDT ALL CBC WITH AUTO DIFF Routine 1:19 PM EDT METRO BILIRUBIN, DIRECT Routine 07/23/19 1:19 PM EDT [facility] CMP (CMP) (FOR REMOTE [facility] USE) Routine 07/22/2024 1:19 PM EDT from Last 3 Months Results * (ABNORMAL) POCT urinalysis dipstick manually resulted (10/21/2024 2:12 PM EDT) Only the most recent of2 resultswithin [...] - Positive Urine 10/21/2024 2:12 PM EDT us Clinton Lewis DO POINT OF CARE TEST ENTER/EDIT OR DERABLES Edited Result - Final * US OB BPP W NON-STRESS (10/14/2024 9:51 AM EDT) Only the most recent of2 resultswithin the time period is included. Anatomical Region Laterality Modality Other 10/14/2024 9:51 AM EDT Narrative 10/14/2024 9:[place] [address] Ultrasound Report Signed Patient: TAN MARS MR#: [id number] : 1995 Acct:[id number] Age/Sex: 29 / F ADM Date: 10/14/24 Loc: US Attending Dr: Clinton Lewis D.O. Ordering Physician: Clinton Lewis D.O. Date of Service: 10/14/24 Procedure(s): US OB BPP w non-stress Accession Number(s): [id number] cc: XENA HERNANDEZ ; Clinton Lewis D.O. The [place] [id number] Patient Name: TAN MARS MRN: [id number] date: 1995 Sex: F Assigned Patient Location: [facility] Current Patient Location: Accession/Order Number: [id number] Exam Date: 10/14/2024 09:47 Report Date: 10/14/2024 09:51 At the request of: CLINTON LEWIS DO Procedure: US OB BPP w non-stress BIOPHYSICAL PROFILE: CLINICAL INFORMATION: History of gastric bypass Z98.84 COMPARISON: 10/07/2024 There is a single live intrauterine gestation in cephalic presentation. The reported gestational age is 34 weeks 6 days. The heart rate measures 139 beats per minute. FINDINGS: TONE: 1 or [...] greater than 2 cm [Y] 2/2 PATITO: 23.6 cm. The 95th percentile is 24.9. The PATITO on the comparison was 15.8 cm. Total score: 8/8 US/US OB BPP w non-stress IMPRESSION: NORMAL BIOPHYSICAL PROFILE. INCREASE IN PATITO SINCE THE PRIOR. FOLLOW-UP ON SUBSEQUENT STUDIES IS SUGGESTED. Impression dictated by: Thelma Morales M.D. 10/14/2024 9:51 AM Dictation Location: [place] [address] Electronically authenticated by: [id number] Y Date: 10/14/2024 09:51 Dictated By: Thelma Morales M.D. Signed By: 10/14/24 0954 DD/ 0951 TD/TT: Substance Abuse Technician: Procedure Note Radiology, Radiologist, MD - 10/14/2024 [place] [address] Ultrasound Report Signed Patient: ATN MARS RMR#: [id number] : 1995Acct:[id number] Age/Sex: 29 / FADM Date: 10/14/24 Loc: US Attending Dr: Clinton Lewis D.O. Ordering Physician: Clinton Lewis D.O. Date of Service: 10/14/24 Procedure(s): US OB BPP w non-stress Accession Number(s): [id number] cc: XENA HERNANDEZ ; Clinton Lewis D.O. The [address] [address] Patient Name: TAN MARS MRN: [id number] date: 1995 Sex: F Assigned Patient Location: [facility] Current Patient Location: Accession/Order Number: [id number] Exam Date: 10/14/2024 09:47 Report Date: 10/14/2024 09:51 At the request of: CLINTON LEWIS DO Procedure: US OB BPP w non-stress BIOPHYSICAL PROFILE: CLINICAL INFORMATION: History of gastric bypass Z98.84 COMPARISON: 10/07/2024 There is a single live intrauterine gestation in cephalic presentation.The reported gestational age is 34 weeks 6 days. The heart ratemeasures 139 beats per minute. FINDINGS: TONE: 1 or [...] greater than 2 cm [Y] 2/2 PATITO: 23.6 cm. The 95th percentile is 24.9. The PATITO on thecomparison was 15.8 cm. Total score: 8/8 US/US OB BPP w non-stress IMPRESSION: NORMAL BIOPHYSICAL PROFILE. INCREASE IN PATITO SINCE THE PRIOR. FOLLOW-UP ON SUBSEQUENT STUDIES IS SUGGESTED. Impression dictated by: Thelma Morales M.D. 10/14/2024 9:51 AM Dictation Location: [place] [address] Electronically authenticated by: [id number] Y Date: 509:51 Dictated By: Thelma Morales M.D. Signed By:10/14/24 0954 DD/ 0951 TD/TT: Substance Abuse Technician: us Generic External Data Provider [facility] Final Result * US OB follow up [...] II, MD, PHD at 15-Sep-2024 10:59:56 PM [facility] Procedure Note Starr Palomino MD - 09/16/2024 EXAM: US OB FOLLOW [...] lb 3 oz)which correlates to 83 %. CALOS is 11/09/2024. Interpreted by: Electronically signed by STARR PALOMINO II, MD, PHD [id number] 10:59:56 PM [facility] us Clinton Debbie DO IMG OB US PROCEDURES Final Resul t * MLR HEMOGLOBIN A1C (07/22/2024 1:19 PM EDT) GLYCOHEMOGLOBIN A1C 5.1 4.5 - 6.2 % TB Comment: ADA RECOMMENDED LIMIT 4.0 - 6.0 ADA THERAPEUTIC TARGET < 7.0 ACTION SUGGESTED > 7.0 ESTIMATED AVERAGE GLUCOSE 100 mg/dL TBH 07/22/2024 1:19 PM EDT 07/22/2024 1:48 PM EDT Narrative [facility] - 07/22/2024 3:57 PM EDT us Clinton Debbie DO CLIN[facility] Final Result [facility] * METRO BILIRUBIN, DIRECT (07/22/2024 1:19 PM EDT) BILIRUBIN DIRECT <0.1 0.0 - 0.2 mg/dL [facility] 07/22/2024 1:19 PM EDT 07/22/2024 1:48 PM EDT Narrative [facility] - 07/22/2024 2:14 PM EDT us Clinton Debbie DO CL[facility] Final Result [facility] * (ABNORMAL) [facility]CF CMP (CMP) (FOR REMOTE [facility] USE) (07/22/2024 1:19 PM EDT) SODIUM 137 136 - 145 mmol/L TBH POTASSIUM 3.9 3.5 - 5.1 mmol/L TBH CHLORIDE 104 98 - 107 mmol/L TBH CARBON DIOXIDE 25.6 21.0 - 32.0 mmol/L TBH ANION GAP 11.3 TBH GLUCOSE 85 74 - 106 mg/dL TBH BLOOD UREA NITROGEN 10.0 7.0 - 18.0 mg/dL TBH CREATININE 0.49(L) 0.55 - 1.02 mg/dL TBH TBH EGFR-AF PERUVIAN >60 >=60 mL/min/1. 73m 2 TBH TBH EGFR-NON AF PERUVIAN >60 >=60 mL/min/1. 73m 2 TBH BUN [...] us Clinton Debbie DO [facility] Final [facility] * (ABNORMAL) ALL CBC WITH AUTO DIFF [...] Narrative [facility]IN[facility] - 07/22/2024 2:16 PM EDT Clinton Debbie DO CLIN[facility]NC Final Result [facility] from Last [address] [facility] Member Subscriber Plan / Payer (Ef fective 2023-Present) Name:Tan Mars Relation to Subscriber:Self Name:Tan Mars Payer ID:Not on file Type:Not on file Address: [facility] [id number] [place] [id number] Care Teams Manager Publishing Relationship Specialty Start Date End Date Xena Hernandez MD [address] [place] [address] PCP - General Family Medicine 09/04/22 Isabel Li NP PCP - [facility] 10/28/23
--- OUTSIDE RECORDS SUMMARY | 2024-10-21 15:00 | XMS_ITS | Encounter Summary ---
Author Organization [facility] Address [address] [facility] [place] [address] Care Team Providers Care Idea Man Name Role Phone Narinder Hernandez MD Primary Care Provider [phone] Isabel Li CREPE LAMINATOR OPERATOR Unavailable Encounter Details Date Type Department Care Team (Late Contact Info) Description 10/14/2024 Clinisync Result Encounter [facility] External Department [...] BCP OB [address] [place] [address] Maddie Chan PA [address] [facility] [address] [place], [place] [address] 11/04/2024 10:50 AM EDT Routine [facility] BCP OB [address] [place] [address] [place] [address] Clinton Lewis DO [address] [facility] [address] [place], [place] [address] documented as of this encounter Procedures Procedure Name Priority Date/Time Associated Diagnosis Comments US OB BPP W NON-STRESS 10/14/2024 9:51 AM EDT documented in this encounter Results * US OB BPP W NON-STRESS (10/14/2024 9:51 AM EDT) Anatomical Region Laterality Modality Other 10/14/2024 9:51 AM EDT Narrative 10/14/2024 9:54 AM EDT The [place] [id number] Ultrasound Report Signed Patient: TAN MARS MR#: [id number] : 1995 Acct:[id number] Age/Sex: 29 / F ADM Date: 10/14/24 Loc: US Attending Dr: Clinton Lewis D.O. Ordering Physician: Clinton Lewis D.O. Date of Service: 10/14/24 Procedure(s): US OB BPP w non-stress Accession Number(s): [id number] cc: NARINDER HERNANDEZ ; Clinton Lewis D.O. The [address] [address] Patient Name: TAN MARS MRN: [id number] date: 1995 Sex: F Assigned Patient Location: [facility] Current Patient Location: Accession/Order Number: [id number] Exam Date: 10/14/2024 09:47 Report Date: 10/14/2024 [...] Morales M.D. 10/14/2024 9:51 AM Dictation Location: [place] [address] Electronically authenticated by: [id number] Y Date: 10/14/2024 09:51 Dictated By: Thelma Morales M.D. Signed By: 10/14/24 0954 DD/ 0951 TD/TT: Vocational Education Teacher: Procedure Note Radiology, Radiologist, - 10/14/2024 [place] [address] Ultrasound Report Signed Patient: TAN MARS RMR#: [id number] : 1995Acct:[id number] Age/Sex: 29 / FADM Date: 10/14/24 Loc: US Attending Dr: Clinton Lewis D.O. Ordering Physician: Clinton Lewis D.O. Date of Service: 10/14/24 Procedure(s): US OB BPP w non-stress Accession Number(s): [id number] cc: NARINDER HERNANDEZ Corey D.O. [address] [address] Patient Name: TAN MARS MRN: [id number] date: 1995 Sex: F Assigned Patient Location: [facility] Current Patient Location: Accession/Order Number: [id number] Exam Date: 10/14/2024 09:47 Report Date: 10/14/2024 [...] Morales M.D. 10/14/2024 9:51 AM Dictation Location: [place] [address] Electronically authenticated by: [id number] Y Date: 9:51 Dictated By: Themla Morales M.D. Signed By:10/14/2454 DD/ 0 TD/TT: Vocational Education Teacher: us Generic External Data Provider [facility] Final Result documented in this encounter Visit Diagnoses Not on filedocumented in this encounter Care Teams Idea Man Relationship Specialty Start Date End Date Narinder Hernandez MD [address] [place] [address] PCP - General Family Medicine 09/04/22 Isabel Li NP PCP - [facility] 10/28/23 documented as of this encounter
--- OUTSIDE RECORDS SUMMARY | 2024-10-21 15:00 | XMS_ITS | Encounter Summary ---
Author Organization [facility] Address [address] [facility] [place] [address] Care Team Providers Care Student Development Dean Name Role Phone Narinder Hernandez MD Primary Care Provider [phone] Narinder Hernandez MD Unavailable Isabel Li SKIN DIVING TEACHER Unavailable Encounter Details Date Type Department Care [...] Description 10/28/2024 9:00 AM EDT Routine [facility] OB [address] [place] [address] [place] [address] Maddie Chan PA [address] [facility] [place] [address] 11/04/2024 10:50 AM EDT Routine [facility] BCP OB [address] [place] [address] [place] [phone] Clinton Lewis, DO [address] [facility] [address] [place], [facility] documented as of this encounter Procedures Procedure Name Priority Date/Time Associated Diagnosis Comments US PELVIS W/ TRANSVAGINAL 08/13/2023 2:53 PM EDT documented in this encounter Results * US PELVIS W/ TRANSVAGINAL (08/13/2023 2:53 PM EDT) Anatomical Region Laterality Modality Other 08/13/2023 2:53 PM EDT Narrative 08/13/2023 2:56 PM EDT The [address] [address] Ultrasound Report Signed Patient: Tan Weiner MR#: [id number] : 1995 Acct:[id number] Age/Sex: 28 / F ADM Date: 08/13/23 Loc: NOMS Attending Dr: Clinton Lewis D.O. Ordering Physician: Clinton Lewis D.O. Date of Service: 08/13/23 Procedure(s): US pelvis w/ transvaginal Accession Number(s): [id number] cc: NARINDER HERNANDEZ Corey D.O. The [address] [address] Patient Name: TAN WEINER MRN: [id number] date: 1995 Sex: F Assigned Patient Location: [facility] Current Patient Location: [facility] Accession/Order Number: [id number] Exam Date: 08/13/2023 11:33 Report Date: 08/13/2023 [...] Signed By: 08/13/23 1456 DD/ 1453 TD/TT: Marketing Project Specialist: Procedure Note Radiology, Radiologist, MD - 08/13/2023 [place] [address] Ultrasound Report Signed Patient: Tan Weiner RMR#: [id number] : 1995Acct:[id number] Age/Sex: 28 / FADM Date: 08/13/23 Loc: NOMS Attending Dr: Clinton Lewis D.O. Ordering Physician: Clinton Lewis D.O. Date of Service: 08/13/23 Procedure(s): US pelvis w/ transvaginal Accession Number(s): [id number] cc: NARINDER HERNANDEZ Corey D.O. The [address] [address] Patient Name: TAN WEINER MRN: [id number] date: 1995 Sex: F Assigned Patient Location: [facility] Current Patient Location: [facility] Accession/Order Number: [id number] Exam Date: 08/13/2023 11:33 Report Date: 08/13/2023 [...] M.D. Signed By:08/13/23 1456 DD/ 1453 TD/TT: Marketing Project Specialist: us Generic External Data Provider [facility] Final Result documented in this encounter Visit Diagnoses Not on filedocumented in this encounter Care Teams Student Development Dean Relationship Specialty Start Date End Date Narinder Hernandez MD [address] [place] [address] PCP - General Family Medicine 09/04/22 Narinder Hernandez MD [address] [place] [address] PCP - [facility] 07/29/23 Isabel Li NP PCP - [facility] 10/28/23 documented as of this encounter
[2024-10-21 16:00] VITALS: BP 136/89; PULSE 94
== END 2024-10-21 14:58 | disposition home or self-care (01) ==
LOC: US 14:57
PROVIDERS: PCP Family Medicine; Visit Provider Obstetrics & Gynecology
DX: Z34.93 Encounter for supervision of normal pregnancy, unspecified, third trimester (principal); Z3A.35 35 weeks gestation of pregnancy; Z98.84 Bariatric surgery status
CPT/HCPCS: 76818; 87081

== ENCOUNTER 2024-10-21 19:36 | Outpatient (REF) | payer BC, SELFPAY | END 2024-10-21 19:37 | disposition home or self-care (01) | LOC: LAB 19:36 | PROVIDERS: PCP Family Medicine; Visit Provider Obstetrics & Gynecology | DX: Z34.93 Encounter for supervision of normal pregnancy, unspecified, third trimester (principal); Z3A.35 35 weeks gestation of pregnancy | CPT/HCPCS: 87081 ==

== ENCOUNTER 2024-10-28 13:39 | Outpatient (OUT) | payer BC, SELFPAY ==
--- OUTSIDE RECORDS SUMMARY | 2024-03-19 09:15 | XMS_ITS | Continuity of Care Document ---
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 [address] [place] [address] [address], [place], [place], [address], [place]. tel:[phone] Referring Provider: Anjali Caicedo, [address] [place] [address] [address], [place], [address]. tel:[phone] OFFICE/OUTPATI ENT VISIT, [facility] [employer] [facility], [address] [place] [address] [address], [place], [place], [address], [place] tel:[phone] [facility] No Information Endy Cordero. [address] [place] [address] [address], [place], [place], [address], [place]. tel:[phone] Referring Provider: Gil Bentley, [address] [place] [address] [address], [place], [address]. tel:[phone] OFFICE/OUTPATI ENT VISIT, [facility] [employer] [facility], [address] [place] [address] [address], [place], [place], [address], [place] tel:[phone] [facility] No Information Endy Cordero. [address] [place] [address] [address], [place], [place], [address], [place]. tel:[phone] Referring Provider: Gil Bentley, [address] [place] [address] [address], [place], [address]. tel:[phone] [facility], [address] [place] [address] [address], [place], [place], [address], [place] tel:[phone] [facility] No Information Sascha Alba. [address] [place] [address] [address], [place], [place], [address], [place]. tel:[phone] Referring Provider: Anjali Caicedo, [address] [place] [address] [address], [place], [address]. tel:[phone] [facility], [address] [place] [address] [address], [place], [place], [address], [place] tel:[phone] [facility] No Information Sascha Alba. [address] [facility] [address], [place], [place], [address], [place]. tel:[phone] Referring Provider: Anjali Caicedo, [address] [place] [address] [address], [place], [address]. tel:[phone] [facility], [address] [place] [address] [address], [place], [place], [address], [place] tel:[phone] [facility] IP No Information Sascha Alba. [address] [place] [address] [address], [place], [place], [address], [place]. tel:[phone] Referring Provider: Anjali Caicedo, [address] [place] [address] [address], [place], [address]. tel:[phone] [employer] [facility], [address] [place] [address] [address], [place], [place], [address], [place] tel:[phone] [facility] IP No Information Endy Cordero. [address] [place] [address] [address], [place], [place], [address], [place]. tel:[phone] Referring Provider: Gil Bentley, [address] [place] [address] [address], [place], [address]. tel:[phone] OFFICE/OUTPATI ENT VISIT, [facility] [employer] [facility], [address] [place] [address] [address], [place], [place], [address], [place] tel:[phone] [facility] No Information Endy Cordero. [address] [place] [address] [address], [place], [place], [address], [place]. tel:[phone] Referring Provider: Gil Bentley, [address] [place] [address] [address], [place], [address]. tel:[phone] OFFICE/OUTPATI ENT VISIT, [facility] [employer] [facility], [address] [place] [address] [address], [place], [place], [address], [place] tel:[phone] [facility] No Information Sascha Alba. [address] [facility] [address], [place], [place], [address], [place]. tel:[phone] Referring Provider: Anjali Caicedo, [address] [place] [address] [address], [place], [address]. tel:[phone] [facility], [address] [place] [address] [address], [place], [place], [address], [place] tel:[phone] [facility] No Information Endy Cordero. [address] [facility] [address], [place], [place], [address], [place]. tel:[phone] Referring Provider: Gil Bentley, [address] [place] [address] [address], [place], [address]. tel:[phone] OFFICE/OUTPATI ENT VISIT, [facility] [employer] [facility], [address] [place] [address] [address], [place], [place], [address], [place] tel:[phone] [facility] No Information Sascha Alba. [address] [place] [address] [address], [place], [place], [address], [place]. tel:[phone] Referring Provider: Anjali Caicedo, [address] [place] [address] [address], [place], [address]. tel:[phone] OFFICE/OUTPATI ENT VISIT, [facility] [employer] [facility], [address] [place] [address] [address], [place], [place], [address], [place] tel:[phone] [facility] No Information Sascha Alba. [address] [place] [address] [address], [place], [place], [address], [place]. tel:[phone] Referring Provider: Anjali Caicedo, [address] [place] [address] [address], [place], [address]. tel:[phone] OFFICE/OUTPATI ENT VISIT, [facility] [employer] [facility], [address] [place] [address] [address], [place], [place], [address], [place] tel:[phone] [facility] No Information Sascha Alba. [address] [facility] [address], [place], [place], [address], [place]. tel:[phone] Referring Provider: Anjali Caicedo, [address] [place] [address] [address], [place], [address]. tel:[phone] OFFICE/OUTPATI ENT VISIT, [facility] [employer] [facility], [address] [place] [address] [address], [place], [place], [address], [place] tel:[phone] [facility] No Information Sascha Alba. [facility] [address] [facility] [address], [place], [place], [address], [place]. tel:[phone] Referring Provider: Anjali Caicedo, [address] [place] [address] [address], [place], [address]. tel:[phone] OFFICE/OUTPATI ENT VISIT, [facility] [employer] [facility], [address] [place] [address] [address], [place], [place], [address], [place] tel:[phone] [facility] No Information Sascha Alba. [address] [place] [address] [address], [place], [place], [address], [place]. tel:[phone] Referring Provider: Anjali Caicedo, [address] [place] [address] [address], [place], [address]. tel:[phone] [facility], [address] [place] [address] [address], [place], [place], [address], [place] tel:[phone] [facility] No Information Sascha Alba. [address] [place] [address] [address], [place], [place], [address], [place]. tel:[phone] Referring Provider: Anjali Caicedo, [address] [place] [address] [address], [place], [address]. tel:[phone] [facility], [address] [place] [address] [address], [place], [address], [place] tel:[phone] [facility] No Information Sascha Alba. [address] [facility] [address], [place], [place], [address], [place]. tel:[phone] Referring Provider: Anjali Caicedo, [address] [facility] [address], [place], [address]. tel:[phone] [facility], [address] [place] [address] [address], [place], [place], [address], [place] tel:[phone] [facility] IP No Information Endy Cordero. [address] [place] [address] [address], [place], [place], [address], [place]. tel:[phone] Referring Provider: Gil Bentley, [address] [place] [address] [address], [place], [address]. tel:[phone] [facility], [address] [place] [address] [address], [place], [place], [address], [place] tel:[phone] [facility] IP No Information Sascha Alba. [address] [place] [address] [address], [place], [place], [address], [place]. tel:[phone] Referring Provider: Anjali Caicedo, [address] [place] [address] [address], [place], [address]. tel:[phone] OFFICE/OUTPATI ENT VISIT, [facility] [employer] [facility], [address] [place] [address] [address], [place], [place], [address], [place] tel:[phone] [facility] No Information Endy Cordero. [address] [place] [address] [address], [place], [place], [address], [place]. tel:[phone] Referring Provider: Gil Bentley, [address] [place] [address] [address], [place], [address]. tel:[phone] OFFICE/OUTPATI ENT VISIT, [facility] [employer] [facility], [address] [place] [address] [address], [place], [place], [address], [place] tel:[phone] [facility] No Information Endy Cordero. [address] [facility] [address], [place], [place], [address], [place]. tel:[phone] Referring Provider: Gil Bentley, [address] [facility] [address], [place], [address]. tel:[phone] OFFICE CONSULTATION [facility], [address] [place] [address] [address], [place], [place], [address], tel:[phone] [facility] No Information Endy Cordero. [address] [place] [address] [address], [place], [place], [address], [place]. tel:[phone] Referring Provider: Gil Bentley, [address] [place] [address] [address], [place], [address]. tel:[phone] Family History Family Member Type Diagnosis Age At Onset No Information Payers Payer name Insurance type Covered constitution party ID James sanmarianne(s) [employer] [place] [employer] CI [id number] Social History Type Description Quantity Date Captured [...]
--- OUTSIDE RECORDS SUMMARY | 2024-09-22 06:14 | XMS_ITS | Continuity of Care Document ---
Author Organization [facility] Address [address] [place] [address] Phone Care Team Providers Care Buying Intern Name Role Phone Lauri Jimenez DMD Unavailable [...] Prophylaxis Adult Nutrit Couns For Control Of [place] Dis Jul Oral Hygiene Instruction Periodic Oral Eval Estab Patient 2024 Oral Hygiene Instruction Resin Composite 1s; Posterior 4 Resin Composite 1s; Posterior 4 Prophylaxis Adult Nutrit Couns For Control Of [place] Dis Oct Oral Hygiene Instruction Prophylaxis Adult Nutrit Couns For Control Of [place] Dis Jan Oral Hygiene Instruction Oral Hygiene Instruction Resin Composite 2s; Posterior Intraoral-complete Series (bw) Oral Hygiene Instruction Comp Oral Eval New/estab Patient 2022 Advance Directives Directive Yes / No Effective Date File Name No Information Encounters Encounter Description Practice Location Reason(s) For Visit Diagnoses Date Provider Providers Copied on Encounter [facility], [address] [place] [address], [id number], [place] tel:[phone] [facility] (chief complaint) Body mass index [BMI] 32.0-32.9, adultEncounter for screening for dental disorders Tony Proctoral. [address] [place] [address], [id number] , [place]. tel:[phone] [facility], [address] [place] [address], [id number], [place] tel:[phone] [facility] [place] (chief complaint) Encounter for screening for dental disordersBody mass index [BMI] 32.0-32.9, adult Tony DMD Lauri. [address] [place], [place], [id number] , [place]. tel:[phone] [facility], [address] [place] [address], [id number], [place] tel:[phone] [facility] filling (chief complaint) Encounter for screening for dental disorders Tony DMD Lauri. [address] [place], [place], [id number] , [place]. tel:[phone] [facility], [address] [place] [address], [id number], [place] tel:[phone] [facility] [place] (chief complaint) Encounter for screening for dental disorders Tony DMD Lauri. [address] [place], [place], [id number] , [place]. tel:[phone] [facility], [address] [place] [address], [id number], [place] tel:[phone] [facility] [place] (chief complaint) Encounter for screening for dental disorders Tony Carreon. [address] [place], [place], [id number] , [place]. tel:[phone] [facility], [address] [place] [address], [id number], [place] tel:[phone] [facility] DAVIDA (chief complaint) Encounter for screening for dental disorders Tony Carreon. [address] [place], [place], [id number] , [place]. tel:[phone] [facility], [address] [place] [address], [id number], tel:[phone] [facility] Dental Clinic DN (chief complaint) Encounter for screening for dental disorders Tony Carreon. [address] [place], [place], [id number] , [place]. [phone] Family History Family Member Type Diagnosis Age [...] Goal Depression screening. Due on due Goal Hep A. Due on du e Goal RLP. Due on due Goal Influenza vaccine. Due on due Goal Depression screening. Due on due Goal PRAPARE ASSESSMENT. Due on due Goal Hepatitis C screening. Due o n due Goal Tdap. Due on due Goal Unhealthy drug use screening . Due on due Goal Tdap Vaccine. Due on 2023 due Goal PAP. Due on due Goal RLP. Due on [...]
--- OUTSIDE RECORDS SUMMARY | 2024-10-21 13:30 | XMS_ITS | Encounter Summary ---
Author Organization [facility] Address [address] [facility] [place] [address] Care Team Providers Care Brim Pouncer Name Role Phone Xena Mccallum MD Primary Care Provider [phone] Isabel Li SENIOR HARDWARE DESIGN ENGINEER Unavailable Reason for Visit * Reason Comments Routine Visit Encounter Details Date Type Department Care Team (Late Contact Info) Description 10/21/2024 1:30 PM EDT Routine [facility] OB [address] [place] [address] Douglas Lewis, DO [address] [place], [facility]11 Nausea (Primary Dx); Third trimester ([facility]); 35 weeks gestation of ([facility]); Anxiety, generalized Social History Tobacco Use Types Packs/Day Years [...] Sign Reading Time Taken Comments Blood Pressure 120/84 10/21/2024 2:00 PM EDT Pulse - - Temperature - - Respiratory Rate - - Oxygen Saturation - - Inhaled Oxygen Concentration - - Weight 80.1 kg (176 lb 8 oz) 10/21/2024 2:00 PM EDT Height - - Body Mass Index 33.35 01/09/2024 3:59 PM EDT documented in this encounter Plan of Treatment Upcoming Encounters Date Type Department Care Team (Late st Contact Info) Description 11/04/2024 10:50 AM EDT Routine [facility] B[facility] OB [address] [facility] [place] [phone] Douglas Lewis, DO [address] [facility] [place] [address] documented as of this encounter Procedures Procedure Name Priority Date/Time Associated Diagnosis Comments POCT URINALYSIS DIPSTICK Routine 10/21/2024 2:12 PM EDT Third trimester ([facility]) CULTURE, GROUP B STREP WITH SUSCEPTIBLITY Routine 10/21/2024 1:52 PM EDT Third trimester ([facility]) documented in this encounter Results * (ABNORMAL) POCT urinalysis dipstick manually resulted (10/21/2024 2:12 PM EDT) Color, UA Yellow Clarity, UA Clear Glucose, UA Negative Negative - 1999(110) ++++ mg/dL Bilirubin, UA Negative Negative - 4(70) +++ mg/dL Ketones, UA Negative Negative - 160(16) ++++ mg/dL Spec Grav, UA 1.030 1 - 1.03 Blood, UA Negative Negative - 50 Liam/mcL pH, UA 6.0 5 - 9 Protein, UA Negative Negative - 1999(20) ++++ mg/dL Urobilinogen, UA 0.2 0.2 - 12 mg/dL Leukocytes, UA Positive Negative - 500+++ Mele/mcL Comment:small Nitrite, UA Negative Negative - Positive Urine 10/21/2024 2:12 PM EDT [employer] Debbie DO POINT OF CARE TEST ENTER/EDIT OR DERABLES Edited Result - Final * CULTURE, GROUP B STREP WITH SUSCEPTIBLITY (10/21/2024 1:52 PM EDT) Swab 10/21/2024 1:52 PM EDT [employer] DO LAB BLOOD ORDERABLES Final Resul t EXTERNAL LAB documented in this encounter Visit Diagnoses Diagnosis Nausea- Primary Nausea alone Third trimester ([facility]) state, incidental 35 weeks gestation of ([facility]) Anxiety, generalized documented in this encounter Care Teams Brim Pouncer Relationship Specialty Start Date End Date Xena Mccallum MD [address] [place] [address] PCP - General Family Medicine 09/04/22 Isabel Li NP PCP - [facility] 10/28/23 documented as of this encounter
--- NOTE | 2024-10-28 | US_ITS ---
[address] [address] Patient Name: SAMREEN MARS MRN: [id number] date: 1995 Sex: F Assigned Patient Location: [facility] Current Patient Location: Accession/Order Number: [id number] Exam Date: 10/28/2024 14:44 Report Date: 10/28/2024 14:46 At the request of: CLINTON GALLARDO DO Procedure: US OB BPP w non-stress Biophysical profile. Reason for exam: History of gastric bypass. COMPARISON: BPP 10/21/2024 TECHNIQUE: Transabdominal imaging of the gravid uterus was obtained. FINDINGS: Livestock Laborer reports a BPP of 8 out of 8. PATITO is normal at 23.7 cm. heart rate 145 bpm. US/US OB BPP w non-stress IMPRESSION: BPP 8 out of 8. Impression dictated by: Isac Becker Jr., D.O. 10/28/2024 2:46 PM Dictation Location: [place] [address] Electronically authenticated by: [id number] Y Date: 10/28/2024 14:46
--- OUTSIDE RECORDS SUMMARY | 2024-10-28 09:00 | XMS_ITS | Encounter Summary ---
Author Organization [facility] Address [address] [facility] [place] [address] Care Team Providers Care Envelope Folder Name Role Phone Xena Mccallum MD Primary Care Provider [phone] Isabel Li DISPATCH ASSOCIATE Unavailable Reason for Visit * Reason Comments Routine Visit Encounter Details Date Type Department Care Team (Late Contact Info) Description 10/28/2024 9:00 AM EDT Routine [facility] BCP OB [address] [facility] [place] [address] Maddie Chan PA [address] [facility] [address] [place], [place] [address] Third trimester ([facility]); 36 weeks gestation of ([facility]) Social History Tobacco Use Types Packs/Day Years [...] Sign Reading Time Taken Comments Blood Pressure 122/82 10/28/2024 8:58 AM EDT Pulse - - Temperature - - Respiratory Rate - - Oxygen Saturation - - Inhaled Oxygen Concentration - - Weight 78.8 kg (173 lb 12 oz) 10/28/2024 8:58 AM EDT Height - - Body Mass Index 32.83 01/09/2024 3:59 PM EDT documented in this encounter Progress Notes * KYLE Martinez - 10/28/2024 9:00 AM EDT Reason for Appointment: Patient ID: Tan Contreras is a 29 y.o. female who presents for Routine Visit Patient presents today for Return OB appointment. MEDICATIONS Current Outpatient Medications Medication Instructions busPIRone (BUSPAR) 10 mg, Oral, Daily PRN, Taking half a tablet busPIRone (BUSPAR) 10 mg, Oral, As needed Calcium Carbonate (CALCIUM 500 PO) 1 tablet, Daily citalopram (CELEXA) 20 mg, Oral, Daily cyclobenzaprine (FLEXERIL) 5 mg, Oral, 2 times daily PRN Ferrous Sulfate (iron) 325 (65 Fe) MG tablet 1 tablet, Daily MV-Min-Fe Fum-FA-DHA ( 1 PO) 1 tablet, Daily promethazine (PHENERGAN) 12.5 mg, Oral, Every 6 hours PRN, Take 1 tablet by mouth every 6 hours as needed for nausea. promethazine (PHENERGAN) 12.5 mg, Oral, Every 6 [...] 08/10/2021 Insomnia 06/18/2023 22 weeks gestation of ([facility]) 07/16/2024 Second trimester ([facility]) 07/16/2024 Resolved Ambulatory Problems Diagnosis Date Noted [...] COSMETIC SURGERY 05/17/2020 [facility] [place] ELBOW SURGERY Left 2000 OTHER SURGICAL HISTORY [...] Appearance: Normal appearance. She is normal weight. HENT: Head: Normocephalic. Cardiovascular: Rate and Rhythm: Normal rate. Pulses: Normal pulses. Pulmonary: Effort: Pulmonary effort is normal. Breath sounds: Normal breath sounds. Abdominal: Palpations: Abdomen is soft. Musculoskeletal: General: Normal range of motion. Neurological: General: No focal deficit present. Mental Status: She is alert and oriented to person, place, and time. Psychiatric: Mood and Affect: Mood normal. Behavior: Behavior normal. Thought Content: Thought content normal. Judgment: Judgment normal. Vitals and nursing note reviewed. Vitals: Estimated body mass index is 32.83 kg/m² as calculated from the following: Height as of 01/09/24: 5' 1 . Weight as of this encounter: 173 lb 12 oz. BP: 122/82 Patient's last menstrual period was 02/13/2024. ASSESSMENT & PLAN ICD-10-CM 1. Third trimester ([facility]) Z34.93 2. 36 weeks gestation of ([facility]) Z3A.36 Return OB: Patient presents today for a routine obstetrics appointment. Patient is currently 36w6d . Patient states she is doing well [...] week for routine OB appointment. Documented by KYLE Martinez on behalf of: KYLE Martinez documented in this encounter Plan of Treatment Upcoming Encounters Date Type Department Care Team (Late st Contact Info) Description 11/04/2024 10:50 AM EDT Routine [facility] BCP OB [address] [facility] [place] [address] Douglas Lewis DO [address] [facility] [address] [place], [place] [address] documented as of this encounter Visit Diagnoses Diagnosis Third trimester ([facility]) state, incidental 36 weeks gestation of ([facility]) documented in this encounter Care Teams Envelope Folder Relationship Specialty Start Date End Date Xena Mccallum MD [address] [place] [address] PCP - General Family Medicine 09/04/22 Isabel Li NP [facility] 10/28[facility]23 documented as of this encounter
--- OUTSIDE RECORDS SUMMARY | 2024-10-28 13:41 | XMS_ITS | Encounter Summary ---
Author Organization [facility] Address [address] [facility] [place] [address] Care Team Providers Care Head Grinder Name Role Phone Narinder Hernandez MD Primary Care Provider [phone] Narinder Hernandez MD Unavailable Isabel Li DOOR TO DOOR SELLING DISTRIBUTOR Unavailable Encounter Details Date Type Department Care [...] Department Care Team (Late Contact Info) Description 11/04/2024 10:50 AM EDT Routine [facility] BCP OB [address] [place] [address] [place] [address] [place] Lewis, DO [address] [place] [address] [place] [address] documented as of this encounter Procedures Procedure Name Priority Date/Time Associated Diagnosis Comments US PELVIS W/ TRANSVAGINAL 08/13/2023 2:53 PM EDT documented in this encounter Results * US PELVIS W/ TRANSVAGINAL (08/13/2023 2:53 PM EDT) Anatomical Region Laterality Modality Other 08/13/2023 2:53 PM EDT Narrative 08/13/2023 2:56 PM EDT [address] [address] Ultrasound Report Signed Patient: Tan Weiner MR#: [id number] : 1995 Acct:[id number] Age/Sex: 28 / F ADM Date: 08/13/23 Loc: [facility] Attending Dr: [place] Lewis D.O. Ordering Physician: [place] Lewis D.O. Date of Service: 08/13/23 Procedure(s): US pelvis w/ transvaginal Accession Number(s): [id number] cc: NARINDER HERNANDEZ ; Clinton Lewis D.O. The [address] [address] Patient Name: TAN WEINER MRN: [id number] date: 1995 Sex: F Assigned Patient Location: [facility] Current Patient Location: [facility] Accession/Order Number: [id number] Exam Date: 08/13/2023 11:33 Report Date: 08/13/2023 [...] Signed By: 08/13/23 1456 DD/ 1453 TD/TT: Risk Management Internship: Procedure Note Radiology, Radiologist, MD - 08/13/2023 [place] [address] Ultrasound Report Signed Patient: Tan Weiner R#: [id number] : 1995Acct:[id number] Age/Sex: 28 / FADM Date: 08/13/23 Loc: [facility] Attending Dr: [place] Lewis D.O. Ordering Physician: [place] Lewis D.O. Date of Service: 08/13/23 Procedure(s): US pelvis w/ transvaginal Accession Number(s): [id number] cc: NARINDER HERNANDEZ ; [place] Lewis D.O. The [place] [id number] Patient Name: TAN WEINER MRN: [id number] date: 1995 Sex: F Assigned Patient Location: [facility] Current Patient Location: [facility] Accession/Order Number: [id number] Exam Date: 08/13/2023 11:33 Report Date: 08/13/2023 [...] M.D. Signed By:08/13/23 1456 DD/ 1453 TD/TT: Risk Management Internship: us Generic External Data Provider [facility] Final Result documented in this encounter Visit Diagnoses Not on filedocumented in this encounter Care Teams Head Grinder Relationship Specialty Start Date End Date Narinder Hernandez MD [address] [place] [address] PCP - General Family Medicine 09/04/22 Narinder Hernandez MD [address] [place] [address] PCP - [facility] 07/29/23 Isabel Li NP PCP - [facility] 10/28/23 documented as of this encounter
--- OUTSIDE RECORDS SUMMARY | 2024-10-28 13:41 | XMS_ITS | Encounter Summary ---
Author Organization [facility] Address [address] [facility] [place] [address] Care Team Providers Care General Service Officer Name Role Phone Xena Mccallum MD Primary Care Provider [phone] Isabel Li WOOL HANKER Unavailable Encounter Details Date Type Department Care Team (Late st Contact Info) Description 11/11/2023 Orders Only [facility] BCP OB [address] [place] [address] Maribell Peraza LPN [address] [facility] [place] [id number] Social History Tobacco Use Types Packs/Day Years [...] [address] [facility] [place] [address] Douglas Lewis [address] [place] [address] documented as of this encounter Procedures Procedure Name Priority Date/Time Associated Diagnosis Comments PAP SMEAR Routine 11/05/2023 12:00 AM EDT documented in this encounter Results * Pap Smear (11/05/2023 12:00 AM EDT) Swab Cervical swab / Unknown Debbie Nurse [facility] B[facility] Ob LAB CYTOLOGY ORDERABLES Final Result EXTERNAL LAB documented in this encounter Visit Diagnoses Not on filedocumented in this encounter Care Teams General Service Officer Relationship Specialty Start Date End Date Xena Mccallum MD [address] [place] [address] PCP - General Family Medicine 09/04/22 Isabel Li NP PCP - [facility] 10/28/23 documented as of this encounter
--- OUTSIDE RECORDS SUMMARY | 2024-10-28 13:41 | XMS_ITS | Encounter Summary ---
Author Organization [facility] Address [address] [facility] [place] [address] Care Team Providers Care Manager Report Name Role Phone Narinder Hernandez MD Primary Care Provider [phone] Isabel Li MOLDER MACHINE Unavailable Encounter Details Date Type Department Care [...] BCP OB [address] [place] [address] [place] Lewis, DO [address] [facility] [place] [address] documented as of this encounter Procedures Procedure Name Priority Date/Time Associated Diagnosis Comments US OB TRANSVAGINAL 04/17/2024 11 :10 AM EST documented in this encounter Results * US OB TRANSVAGINAL (04/17/2024 11:10 AM EST) Anatomical Region Laterality Modality Other 04/17/2024 11:1 0 AM EST Narrative 04/17/2024 2:43 PM EST The [address] [address] Ultrasound Report Signed Patient: TAN MARS MR#: [id number] : 1995 Acct:[id number] Age/Sex: 29 / F ADM Date: 04/17/24 Loc: [facility] Attending Dr: [place] Lewis D.O. Ordering Physician: [place] Lewis D.O. Date of Service: 04/17/24 Procedure(s): US OB transvaginal Accession Number(s): [id number] cc: NARINDER HERNANDEZ ; Clinton Lewis D.O. The [address] [address] Patient Name: TAN MARS MRN: [id number] date: 1995 Sex: F Assigned Patient Location: [facility] Current Patient Location: [facility] Accession/Order Number: [id number] Exam Date: 04/17/2024 09:28 Report Date: 04/17/2024 [...] Signed By: 04/17/24 1443 DD/ 1110 TD/TT: Armature Winder Repairer: Procedure Note Radiology, Radiologist, MD - 04/17/2024 [place] [address] Ultrasound Report Signed Patient: TAN MARS RMR#: [id number] : 1995Acct:[id number] Age/Sex: 29 / FADM Date: 04/17/24 Loc: [facility] Attending Dr: [place] Lewis D.O. Ordering Physician: [place] Lewis D.O. Date of Service: 04/17/24 Procedure(s): US OB transvaginal Accession Number(s): [id number] cc: NARINDER HERNANDEZ ; Clinton Lewis D.O. The [address] [id number] Patient Name: TAN MARS MRN: [facility]:[id number] date: 1995 Sex: F Assigned Patient Location: [facility] Current Patient Location: [facility] Accession/Order Number: [id number] Exam Date: 04/17/2024 09:28 Report Date: 04/17/2024 [...] M.D. Signed By:04/17/24 1443 DD/ 1110 TD/TT: Armature Winder Repairer: us Generic External Data Provider [facility] Final Result documented in this encounter Visit Diagnoses Not on filedocumented in this encounter Care Teams Manager Report Relationship Specialty Start Date End Date Narinder Hernandez MD [address] [place] [address] PCP - General Family Medicine 09/04/22 Isabel Li NP PCP - [facility] 10/28/23 documented as of this encounter
--- OUTSIDE RECORDS SUMMARY | 2024-10-28 13:41 | XMS_ITS | Encounter Summary ---
Author Organization [facility] Address [address] [facility] [place] [address] Care Team Providers Care Fund Accountant Name Role Phone Xena Mccallum MD Primary Care Provider [phone] Isabel Li CENTER MANAGER Unavailable Reason for Visit * Reason Onset Date Comments Med Refill 10/20/2024 Encounter Details Date Type Department Care Team (Late st Contact Info) Description 10/20/2024 Refill [facility] OB [address] [place] [address] Douglas Lewis, DO [address] [place], [place] [address] Nausea; Mood changes Social History Tobacco Use [...] [address] [facility] [place] [address] Douglas Lewis DO [address] [facility] [place] [address] documented as of this encounter Visit Diagnoses Diagnosis Nausea Nausea alone Mood changes Unspecified episodic mood disorder documented in this encounter Care Teams Fund Accountant Relationship Specialty Start Date End Date Xena Mccallum MD [address] [place] [address] PCP - General Family Medicine 09/04/22 Isabel Li NP PCP - [facility] 10/28/23 documented as of this encounter
--- OUTSIDE RECORDS SUMMARY | 2024-10-28 13:41 | XMS_ITS | Encounter Summary ---
Author Organization [facility] Address [address] [facility] [place] [address] Care Team Providers Care Electric Stop Installer Name Role Phone Narinder Hernandez MD Primary Care Provider [phone] Isabel Li BLUEPRINTING MACHINE OPERATOR Unavailable Encounter Details Date Type Department Care Team (Late Contact Info) Description 10/21/2024 Clinisync Result Encounter [facility] External Department Unsolicited [...] BCP OB [address] [place] [address] [place] Lewis, DO [address] [facility] [place] [address] documented as of this encounter Procedures Procedure Name Priority Date/Time Associated Diagnosis Comments US OB BPP W NON-STRESS 10/21/2024 4:12 PM EDT STREP GP B CULTURE+RFLX Routine 10/21/2024 1:51 PM EDT documented in this encounter Results * US OB BPP W NON-STRESS (10/21/2024 4:12 PM EDT) Anatomical Region Laterality Modality Other 10/21/2024 4:12 PM EDT Narrative 10/21/2024 4:14 PM EDT The [place] [id number] Ultrasound Report Signed Patient: TAN MARS MR#: [id number] : 1995 Acct:[id number] Age/Sex: 29 / F ADM Date: 10/21/24 Loc: US Attending Dr: [place] Lewis D.O. Ordering Physician: Clinot[place] Lewis D.O. Date of Service: 10/21/24 Procedure(s): US OB BPP w non-stress Accession Number(s): [id number] cc: NARINDER HERNANDEZ ; [place] Lewis D.O. The [address] [address] Patient Name: TAN MARS MRN: [id number]:[id number] date: 1995 Sex: F Assigned Patient Location: US Current Patient Location: US Accession/Order Number: [id number] Exam Date: 10/21/2024 16:11 Report Date: 10/21/2024 16:12 At the request of: CLINTON LEWIS DO Procedure: US OB BPP w non-stress Biophysical profile. Reason for exam: History of gastric bypass. COMPARISON: BPP 10/14/2024. TECHNIQUE: Transabdominal imaging of the gravid uterus was obtained. FINDINGS: Cobol Mainframe Developer reports a BPP of 8 out of 8. PATITO is normal at 20.6 cm. heart rate 147 bpm. US/US OB BPP w non-stress IMPRESSION: BPP 8 out of 8. Impression dictated by: Isac Becker Jr., D.O. 10/21/2024 4:12 PM Dictation Location: [place] [address] Electronically authenticated by: [id number] Y Date: 10/21/2024 16:12 Dictated By: Isac Becker M.D. Signed By: 10/21/241613 DD/ 11 TD/TT: Occupational Medicine Officer: Procedure Note Radiology, Radiologist, MD - 10/21/2024 [place] [address] Ultrasound Report Signed Patient: TAN MARS RMR#: [id number] : 1995Acct:[id number] Age/Sex: 29 / FADM Date: 10/21/24 Loc: US Attending Dr: [place] Lewis D.O. Ordering Physician: [place] Lewis D.O. Date of Service: 10/21/24 Procedure(s): US OB BPP w non-stress Accession Number(s): [id number] cc: NARINDER HERNANDEZ ; [place] Lewis D.O. The [place] [id number] Patient Name: TAN MARS MRN: [id number] date: 1995 Sex: F Assigned Patient Location: US Current Patient Location: US Accession/Order Number: [id number] Exam Date: 10/21/2024 16:11 Report Date: 10/21/2024 16:12 At the request of: CLINTON LEWIS DO Procedure: US OB BPP w non-stress Biophysical profile. Reason for exam: History of gastric bypass. COMPARISON: BPP 10/14/2024. TECHNIQUE: Transabdominal imaging of the gravid uterus was obtained. FINDINGS: Cobol Mainframe Developer reports a BPP of 8 out of 8. PATITO is normal at 20.6cm. heart rate 147 bpm. US/US OB BPP w non-stress IMPRESSION: BPP 8 out of 8. Impression dictated by: Isac Becker Jr., D.O. 10/21/2024 4:12 PM Dictation Location: [place] [address] Electronically authenticated by: [id number] Y Date: 6:12 Dictated By: Isac Becker M.D. Signed By:10/21/244 DD/ 11 TD/TT: Occupational Medicine Officer: us Generic External Data Provider [facility] Final Result * STREP GP B CULTURE+RFLX (10/21/2024 1:51 PM EDT) STREP GP B CULTURE+RFLX Strep Gp B Culture+Rflx TBH STREP GP B CULTURE+RFLX Negative TBH STREP GP B CULTURE+RFLX Centers for Disease Control and Prevention (CDC) and TBH STREP GP B CULTURE+RFLX [employer] TBH STREP GP B CULTURE+RFLX (ACOG) guidelines for prevention of group B TBH STREP GP B CULTURE+RFLX streptococcal (GBS) disease specify co-collection of TBH STREP GP B CULTURE+RFLX a vaginal and rectal swab specimen to maximize TBH STREP GP B CULTURE+RFLX sensitivity of GBS detection. Per the CDC and ACOG, TBH STREP GP B CULTURE+RFLX swabbing both the lower vagina and rectum TBH STREP GP B CULTURE+RFLX substantially increases the yield of detection TBH STREP GP B CULTURE+RFLX compared with sampling the vagina alone. TBH STREP GP B CULTURE+RFLX Penicillin G, ampicillin, or cefazolin are indicated TBH STREP GP B CULTURE+RFLX for intrapartum prophylaxis of GBS TBH STREP GP B CULTURE+RFLX colonization. Reflex susceptibility testing should be TBH STREP GP B CULTURE+RFLX performed prior to use of clindamycin only on GBS TBH STREP GP B CULTURE+RFLX isolates from penicillin-allergi c women who are TBH STREP GP B CULTURE+RFLX considered a high risk for anaphylaxis. Treatment with TBH STREP GP B CULTURE+RFLX vancomycin without additional testing is warranted if TBH STREP GP B CULTURE+RFLX resistance to clindamycin is noted. TBH STREP GP B CULTURE+RFLX Performed at: [facility]H STREP GP B CULTURE+RFLX [address] [place], [place] [id number] TBH STREP GP B CULTURE+RFLX Farm Consultant: Braulio Armstrong PhD, Phone: [phone] [facility] 10/21/2024 1:51 PM EDT 10/21/2024 9:04 PM EDT Narrative [facility] - 10/26/2024 12:13 PM EDT us Generic External Data Provider LAB BLOOD ORDERAB LES Final Result Performing Organization Address City/State/[facility] Co de Phone Number [facility] documented in this encounter Visit Diagnoses Not on filedocumented in this encounter Care Teams Electric Stop Installer Relationship Specialty Start Date End Date Narinder Hernandez MD [address] [place] [address] PCP - General Family Medicine 09/04/22 Isabel Li NP PCP - [facility] 10/28/23 documented as of this encounter
--- OUTSIDE RECORDS SUMMARY | 2024-10-28 13:41 | XMS_ITS | Encounter Summary ---
Author Organization [facility] Address [address] [facility] [place] [address] Care Team Providers Care Phlebotomist Name Role Phone Xena Mccallum MD Primary Care Provider [phone] Isabel Li ASSOCIATE PUBLISHER Unavailable Encounter Details Date Type Department Care Team (Late st Contact Info) Description 05/18/2024 Abstract [facility] OB [address] [place] [address] Douglas Lewis, DO [address] [place], [id number] Social History Tobacco Use Types Packs/Day Years [...] AM EDT Routine [facility] BCP OB [address] [facility] [place] [address] Douglas Lewis, DO [address] [facility] [place] [address] documented as of this encounter Visit Diagnoses Not on filedocumented in this encounter Care Teams Phlebotomist Relationship Specialty Start Date End Date Xena Mccallum MD [address] [place] [address] PCP - General Family Medicine 09/04/22 Isabel Li NP PCP - [facility] 10/28/23 documented as of this encounter
--- OUTSIDE RECORDS SUMMARY | 2024-10-28 13:41 | XMS_ITS | Encounter Summary ---
Author Organization [facility] Address [address] [facility] [place] [address] Care Team Providers Care Tractor Engine Assembler Name Role Phone Xena Mccallum MD Primary Care Provider [phone] Xena Mccallum MD Unavailable Isabel Li NP Unavailable Encounter Details Date Type Department Care Team (Late st Contact Info) Description 07/22/2023 Abstract [facility] [address] [place] [address] Isabel Li NITROGEN OPERATOR Social History Tobacco Use Types Packs/Day [...] AM EDT Routine [facility]OM[facility] BCP OB [address] [place] [address] Douglas Lewis DO [address] [place] [address] [place] [address] documented as of this encounter Visit Diagnoses Not on filedocumented in this encounter Care Teams Tractor Engine Assembler Relationship Specialty Start Date End Date Xena Mccallum MD [address] [place], [place] [id number] PCP - General Family Medicine 09/04/22 Xena Mccallum MD [address] [place], [place] [id number] PCP - [facility] 07/29/23 Isabel Li NP PCP - [facility] 10/28/23 documented as of this encounter
--- OUTSIDE RECORDS SUMMARY | 2024-10-28 13:41 | XMS_ITS | Encounter Summary ---
Author Organization [facility] Address [address] [facility] [place] [address] Care Team Providers Care Weaver Wire Loom Name Role Phone Narinder Hernandez MD Primary Care Provider [phone] Isabel Li HOT BALLER Unavailable Encounter Details Date Type Department Care [...] OB [address] [place] [address] Clinton Lewis DO [address] [facility] [place] [address] documented as of this encounter Procedures Procedure Name Priority Date/Time Associated Diagnosis Comments US OB BPP W NON-STRESS 10/14/2024 9:51 AM EDT documented in this encounter Results * US OB BPP W NON-STRESS (10/14/2024 9:51 AM EDT) Anatomical Region Laterality Modality Other 10/14/2024 9:51 AM EDT Narrative 10/14/2024 9:54 AM EDT The [address] [address] Ultrasound Report Signed Patient: TAN MARS MR#: [id number] : 1995 Acct:[id number] Age/Sex: 29 / F ADM Date: 10/14/24 Loc: US Attending Dr: Clinton Lewis D.O. Ordering Physician: Clinton Lewis D.O. Date of Service: 10/14/24 Procedure(s): US OB BPP w non-stress Accession Number(s): [id number] cc: NARINDER HERNANDEZ ; Clinton Lewis D.O. The [address] [address] Patient Name: TAN MARS MRN: [id number] date: 1995 Sex: F Assigned Patient Location: [facility] Current Patient Location: Accession/Order Number: [id number] Exam Date: 10/14/2024 09:47 Report Date: 10/14/2024 [...] the comparison was 15.8 cm. Total score: 12/04 US/US OB BPP w non-stress IMPRESSION: NORMAL BIOPHYSICAL PROFILE. INCREASE IN PATITO SINCE THE PRIOR. FOLLOW-UP ON SUBSEQUENT STUDIES IS SUGGESTED. Impression dictated by: Thelma Morales M.D. 10/14/2024 9:51 AM Dictation Location: [place] [address] Electronically authenticated by: [id number] Y Date: 10/14/2024 09:51 Dictated By: Thelma Morales M.D. Signed By: 10/14/24 0954 DD/ 0951 TD/TT: Reducing System Operator: Procedure Note Radiology, Radiologist, - 10/14/2024 [place] [address] Ultrasound Report Signed Patient: TAN MARS RMR#: [id number] : 1995Acct:[id number] Age/Sex: 29 / FADM Date: 10/14/24 Loc: US Attending Dr: Clinton Lewis D.O. Ordering Physician: Clinton Lewis D.O. Date of Service: 10/14/24 Procedure(s): US OB BPP w non-stress Accession Number(s): [id number] cc: NARINDER HERNANDEZ ; Clinton Lewis D.O. The [place] [id number] Patient Name: TAN MARS MRN: [facility]:[id number] date: 1995 Sex: F Assigned Patient Location: [facility] Current Patient Location: Accession/Order Number: [id number] Exam Date: 10/14/2024 09:47 Report Date: 10/14/2024 [...] Morales M.D. 10/14/2024 9:51 AM Dictation Location: [place] [address] Electronically authenticated by: [id number] Y Date: 509:51 Dictated By: Thelma Morales M.D. Signed By:10/14/24 0954 DD/ TD/TT: Reducing System Operator: us Generic External Data Provider [facility] Final Result documented in this encounter Visit Diagnoses Not on filedocumented in this encounter Care Teams Weaver Wire Loom Relationship Specialty Start Date End Date Narinder Hernandez MD [address] [place] [address] PCP - General Family Medicine 09/04/22 Isabel Li NP [facility] 10/28/23 documented as of this encounter
--- OUTSIDE RECORDS SUMMARY | 2024-10-28 13:41 | XMS_ITS | Encounter Summary ---
Author Organization [facility] Address [address] [facility] [place] [address] Care Team Providers Care Lime Kiln Worker Helper Name Role Phone Xena Mccallum MD Primary Care Provider [phone] Xena Mccallum MD Unavailable Isabel Li NP Unavailable Encounter Details Date Type Department Care Team (Late st Contact Info) Description 08/10/2023 Abstract [facility] [address] [place] [address] Isabel Li MOTORS AND CONTROLS TESTER Social History Tobacco Use Types Packs/Day Years [...] AM EDT Routine [facility] BCP OB [address] [facility] [place] [address] Douglas Lewis DO [address] [place] [address] [place] [address] documented as of this encounter Visit Diagnoses Not on filedocumented in this encounter Care Teams Lime Kiln Worker Helper Relationship Specialty Start Date End Date Xena Mccallum MD [address] [place], [place] [id number] PCP - General Family Medicine 09/04/22 Xena Mccallum MD [address] [place], [place] [address] PCP - [facility] 07/29/23 Isabel Li NP PCP - [facility] 10/28/23 documented as of this encounter
--- OUTSIDE RECORDS SUMMARY | 2024-10-28 13:41 | XMS_ITS | Clinical Summary ---
Author Organization [facility] Address [address] [facility] [place] [address] Care Team Providers Care Cloud Operations Engineer Name Role Phone Xena Hernandez MD Primary Care Provider [phone] Isabel Li RETAIL LEADER Unavailable Allergies Active Allergy Reactions Criticality Noted Date Comments Clindamycin Swelling 06/18/2023 Other Reaction(s): Tongue swelling Lamotrigine 06/18/2023 Other Reaction(s): worsened depression Morphine Hives 06/18/2023 Penicillins Rash,Unknown Low 04/26/2016 Medications busPIRone (Buspar) 10 MG tabletIndication s:Anxiety Take 1 tablet (10 mg) by mouth Daily as needed (anxiety) Taking half a tablet 90 tablet 1 4 01/09/20 25 Active cyclobenzaprine (Flexeril) 5 MG tabletIndication s:Nonintractable headache, unspecified chronicity pattern, unspecified headache type,Cramp and spasm Take 1 tablet (5 mg) by mouth 2 (two) times a day as needed for muscle spasms 60 tablet 5 Active MV-Min-Fe Fum-FA-DHA ( 1 PO) Take 1 tablet by mouth Daily Active Calcium Carbonate (CALCIUM 500 PO) Take 1 tablet by mouth Daily Active Ferrous Sulfate (iron) 325 (65 Fe) MG tablet Take 1 tablet by mouth Daily Active promethazine (Phenergan) 12.5 MG tabletIndication s:Nausea Take 1 tablet (12.5 mg) by mouth every 6 (six) hours if needed for nausea or vomiting for up to 30 doses Take 1 tablet by mouth every 6 hours as needed for nausea. 30 tablet 2 5 Active citalopram (CeleXA) 20 MG tabletIndication s:Mood changes Take 1 tablet (20 mg) by mouth Daily 30 tablet 11 5 10/21/19 26 Active promethazine (Phenergan) 12.5 MG tabletIndication s:Nausea Take 1 tablet (12.5 mg) by mouth every 6 (six) hours if needed for nausea or vomiting for up to 30 doses Take 1 tablet by mouth every 6 hours as needed for nausea. 30 tablet 5 Active busPIRone (Buspar) 10 MG tabletIndication s:Anxiety, generalized Take 1 tablet (10 mg) by mouth if needed (1/2 tablet prn at bedtime) 60 tablet 5 11/21/19 25 Active promethazine (Phenergan) 12.5 MG tabletIndication s:Nausea Take 1 tablet (12.5 mg) by mouth every 6 (six) hours if needed for nausea or vomiting for up to 30 doses Take 1 tablet by mouth every 6 hours as needed for nausea. 30 tablet 2 5 10/21/19 25 Discontinu ed(Reorder ) citalopram (CeleXA) 20 MG tabletIndication s:Mood changes Take 1 tablet (20 mg) by mouth Daily 30 tablet 11 5 10/21/19 25 Discontinu ed(Reorder ) Active Problems Problem Noted Date Diagnosed Date 22 weeks gestation of ([facility]) 2024 Second trimester ([facility]) 07/16/2024 Depression 06/18/2023 Anemia 06/18/2023 Anxiety 06/18/2023 Essential thrombocythemia 06/18/2023 Gastroesophageal reflux disease 06/18/2023 Insomnia 06/18/2023 Gastric bypass status for obesity 08/10/2021 Iron deficiency anemia sudhakaron efren to inadequate dietary iron intake 08/10/2021 Recurrent nephrolithiasis 09/05/2016 Estimated Date of Delivery Comme nts Yes 11/19/2024 Based on last me nstrual period of 02/13/2024 Encounters Date Type Department Care Team Description 10/28/2024 9:00 AM EDT Routine [facility] OB [address] [place] [address] Maddie Chan PA Third trimester ([facility]); 36 weeks gestation of ([facility]) 10/28/2024 Bamboo flowsheet [facility] OB [address] [place] [address] [place] [address] Maddie Chan PA 10/21/2024 1:30 PM EDT Routine [facility] OB [address] [place] [address] [place] [address] Clinton Lewis DO Nausea (Primary Dx); Third trimester ([facility]); 35 weeks gestation of ([facility]); Anxiety, generalized 10/21/2024 Clinisync Result Encounter NOMS External Department Unsolicited Provider, Generic External Data 10/21/2024 Bamboo flowsheet [facility] OB [address] [place] [address] [place] [address] Clinton Lewis DO 10/20/2024 Refill [facility] OB [address] [place] [address] Clinton Lewis DO Nausea; Mood changes 10/20/2024 Refill [facility] FM [address] [facility] [place] [address] Xena Hernandez MD Anxiety 10/14/2024 Clinisync Result Encounter NOMS External Department Unsolicited Provider, Generic External Data 10/07/2024 1:50 PM EDT Routine [facility] OB [address] [place] [address] Clinton Lewis DO Third trimester ([facility]); 33 weeks gestation of ([facility]) 10/07/2024 Clinisync Result Encounter NOMS External Department Unsolicited Provider, Generic External Data 09/23/2024 11:30 AM EDT Routine [facility] OB [address] [place] [address] [place] [address] Clinton Lewis DO 31 weeks gestation of ([facility]); Third trimester ([facility]) 09/23/2024 Bamboo flowsheet [facility] OB [address] [place] [address] Clinton Lewis DO 09/15/2024 11:30 AM EDT Ancillary Procedure [facility] OB [address] [place] [address] History of gastric bypass 09/10/2024 Telephone [facility] OB [address] [place] [address] Leticia Pina UT 09/09/2024 Telephone [facility] OB [address] [place] [address] Leticia Pina UT 09/08/2024 9:20 AM EDT Routine [facility] OB [address] [place] [address] Clinton Lewis, Third trimester ([facility]); 29 weeks gestation of ([facility]); History of gastric bypass; Mood changes 09/08/2024 Bamboo flowsheet [facility] OB [address] [place] [address] [place] [address] Clinton Lewis DO 08/13/2024 9:10 AM EDT Routine [facility] OB [address] [place] [address] Clinton Lewis, Second trimester ([facility]); 26 weeks gestation of ([facility]); Nonintractable headache, unspecified chronicity pattern, unspecified headache type 08/13/2024 Bamboo flowsheet [facility] OB [address] [place] [address] Clinton Lewis DO 08/03/2024 Telephone [facility] OB [address] [place] [address] Cecy Nicholas MA 08/03/2024 Refill [facility] OB [address] [place] [address] [place] [address] Cecy Nicholas MA Nonintractable headache, unspecified chronicity pattern, unspecified headache type; Nausea from Last 3 Months Immunizations Immunization Administration [...] Pressure 122/82 10/28/2024 8:58 AM EDT Pulse 82 01/09/2024 3:59 PM EDT Temperature - - Respiratory Rate 18 01/09/2024 3:59 PM EDT Oxygen Saturation 99% 01/09/2024 3:59 PM EDT Inhaled Oxygen Concentration - - Weight 78.8 kg (173 lb 12 oz) 10/28/2024 8:58 AM EDT Height 154.9 cm (5' 1 ) 01/09/2024 3:59 PM EDT Body Mass Index 32.83 01/09/2024 3:59 PM EDT Plan of Treatment Upcoming Encounters Date Type Department Care Team (Late st Contact Info) Description 11/04/2024 10:50 AM EDT Routine [facility] OB [address] [place] [address] DebbieClinton garcia, DO [address] [facility] [place] [address] Health Maintenance Due Date Last Done Comments Influenza Vaccine (#1) 2024 05/03/2020, 2017, 02/21/2016 Procedures Procedure Name Priority Date/Time Associated Diagnosis Comments US OB BPP W NON-STRESS 10/21/2024 4:12 PM EDT POCT URINALYSIS DIPSTICK Routine 10/21/2024 2:12 PM EDT Third trimester ([facility]) CULTURE, GROUP B STREP WITH SUSCEPTIBLITY Routine 10/21/2024 1:52 PM EDT Third trimester ([facility]) STREP GP B CULTURE+RFLX Routine 10/22/19 1:51 PM EDT US OB BPP W NON-STRESS 10/14/2024 9:51 AM EDT US OB BPP W NON-STRESS 10/07/2024 9:21 AM EDT POCT URINALYSIS DIPSTICK Routine 09/23/2024 11:52 AM EDT 31 weeks gestation of ([facility]) Third trimester ([facility]) US OB FOLLOW UP TRANSABDOMINAL APPROACH Routine 09/15/2024 12:02 PM EDT History of gastric bypass from Last 3 Months Results * US OB BPP W NON-STRESS (10/21/2024 4:12 PM EDT) Only the most recent of3 resultswithin the time period is included. Anatomical Region Laterality Modality Other 10/21/2024 4:12 PM EDT Narrative 10/21/2024 4:14 PM EDT [address] [address] Ultrasound Report Signed Patient: TAN MARS MR#: [id number] : 1995 Acct:[id number] Age/Sex: 29 / F ADM Date: 10/21/24 Loc: US Attending Dr: Clinton Lewis D.O. Ordering Physician: Clinton Lewis D.O. Date of Service: 10/21/24 Procedure(s): US OB BPP w non-stress Accession Number(s): [id number] cc: XENA HERNANDEZ ; Clinton Lewis D.O. [address] [address] Patient Name: TAN MARS MRN: [id number] date: 1995 Sex: F Assigned Patient Location: US Current Patient Location: US Accession/Order Number: [id number] Exam Date: 10/21/2024 16:11 Report Date: 10/21/2024 16:12 At the request of: CLINTON LEWIS DO Procedure: US OB BPP w non-stress Biophysical profile. Reason for exam: History of gastric bypass. COMPARISON: BPP 10/14/2024. TECHNIQUE: Transabdominal imaging of the gravid uterus was obtained. FINDINGS: Civil Transportation Engineer reports a BPP of 8 out of 8. PATITO is normal at 20.6 cm. heart rate 147 bpm. US/US OB BPP w non-stress IMPRESSION: BPP 8 out of 8. Impression dictated by: Isac Becker Jr., D.O. 10/21/2024 4:12 PM Dictation Location: [place] [address] Electronically authenticated by: [id number] Y Date: 10/21/2024 16:12 Dictated By: Isac Becker M.D. Signed By: 10/21/244 DD/ 11 TD/TT: Manager Monitoring: Procedure Note Radiology, Radiologist, - 10/21/2024 [place] [address] Ultrasound Report Signed Patient: TAN MARS RMR#: [id number] : 1995Acct:[id number] Age/Sex: 29 / FADM Date: 10/21/24 Loc: US Attending Dr: Clinton Lewis D.O. Ordering Physician: Clinton Lewis D.O. Date of Service: 10/21/24 Procedure(s): US OB BPP w non-stress Accession Number(s): [id number] cc: XENA HERNANDEZ ; Clinton Lewis D.O. The [place] [address] Patient Name: TAN MARS MRN: [id number] date: 1995 Sex: F Assigned Patient Location: US Current Patient Location: US Accession/Order Number: [id number] Exam Date: 10/21/2024 16:11 Report Date: 10/21/2024 16:12 At the request of: CLINTON LEWIS DO Procedure: US OB BPP w non-stress Biophysical profile. Reason for exam: History of gastric bypass. COMPARISON: BPP 10/14/2024. TECHNIQUE: Transabdominal imaging of the gravid uterus was obtained. FINDINGS: Civil Transportation Engineer reports a BPP of 8 out of 8. PATITO is normal at 20.6cm. heart rate 147 bpm. US/US OB BPP w non-stress IMPRESSION: BPP 8 out of 8. Impression dictated by: Isac Becker Jr., D.O. 10/21/2024 4:12 PM Dictation Location: [place] [address] Electronically authenticated by: [id number] Y Date: 6:12 Dictated By: Isac Becker M.D. Signed By:10/21/241613 DD/ 11 TD/TT: Manager Monitoring: us Generic External Data Provider [facility] [...] - Positive Urine 10/21/2024 2:12 PM EDT Result [facility] Clinton Debbei DO POINT OF CARE TEST ENTER/EDIT OR DERABLES Edited Result - Final * CULTURE, GROUP B STREP WITH SUSCEPTIBLITY (10/21/2024 1:52 PM EDT) Swab 10/21/2024 1:52 PM EDT Clinton Debbie DO LAB BLOOD ORDERABLES Final Resul t EXTERNAL LAB * STREP GP B CULTURE+RFLX (10/21/2024 1:51 PM EDT) STREP GP B CULTURE+RFLX Strep Gp B Culture+Rflx [facility] STREP GP B CULTURE+RFLX Negative [facility] STREP GP B CULTURE+RFLX Centers for Disease Control and Prevention (CDC) and [facility] STREP GP B CULTURE+RFLX [employer] [facility] STREP [...] [facility] STREP GP B CULTURE+RFLX [facility] STREP GP B CULTURE+RFLX [address] [place], [place] [id number] [facility] STREP GP B CULTURE+RFLX At Risk Paraprofessional: Braulio Armstrong PhD, Phone: [phone] [facility] 10/21/2024 1:51 PM EDT 10/21/2024 9:04 PM EDT Narrative АНДРЕЙ - 10/26/2024 12:13 PM EDT us Generic External Data Provider LAB BLOOD ORDERAB LES Final Result [facility] * US OB follow up transabdominal approach [...] II, MD, PHD at 15-Sep-2024 10:59:56 PM [facility] Procedure Note Starr Palomino MD - [...] signed by STARR PALOMINO II, MD, PHD [id number] 10:59:56 PM [facility] us Clinton Debbie DO IMG OB US PROCEDURES Final Resul t from Last 3 Months Insurance BCBS Care Teams Cloud Operations Engineer Relationship Specialty Start Date End Date Xena Hernandez MD [address] [place] [address] PCP - General Family Medicine 09/04/22 Isabel Li NP PCP - [facility] 10/28/23
--- OUTSIDE RECORDS SUMMARY | 2024-10-28 13:41 | XMS_ITS | Encounter Summary ---
Author Organization [facility] Address [address] [facility] [place] [address] Care Team Providers Care Marine Electrician Apprentice Name Role Phone Xena Mccallum MD Primary Care Provider [phone] Isabel Li BENCH ASSEMBLER OPERATOR Unavailable Encounter Details Date Type Department Care Team (Late st Contact Info) Description 10/21/2024 Bamboo flowsheet [facility] BCP OB [address] [place] [address] Douglas Lewis, DO [address] [facility] [address] [place], [facility]11 Social History Tobacco Use Types [...] AM EDT Routine [facility] BCP OB [address] [facility] [place] [address] Douglas Lewsi, DO [address] [facility] [address] [place], [place] [address] documented as of this encounter Visit Diagnoses Not on filedocumented in this encounter Care Teams Marine Electrician Apprentice Relationship Specialty Start Date End Date Xena Mccallum MD [address] [place] [address] PCP - General Family Medicine 09/04/22 Isabel Li NP PCP - [facility] 10/28/23 documented as of this encounter
--- OUTSIDE RECORDS SUMMARY | 2024-10-28 13:41 | XMS_ITS | Encounter Summary ---
Author Organization [facility] Address [address] [facility] [place] [address] Care Team Providers Care Spray Drier Operator Name Role Phone Xena Mccallum MD Primary Care Provider [phone] Isabel Li WINDSHIELD REPAIR TECHNICIAN Unavailable Encounter Details Date Type Department Care Team (Late st Contact Info) Description 10/28/2024 Bamboo flowsheet [facility] BCP OB [address] [place] [address] Maddie Chan PA [address] [facility] [address] [place], [facility]11 Social History Tobacco Use Types Packs/Day [...] AM EDT Routine [facility] BCP OB [address] [facility] [place] [address] Douglas Lewis, DO [address] [facility] [address] [place], [place] [address] documented as of this encounter Visit Diagnoses Not on filedocumented in this encounter Care Teams Spray Drier Operator Relationship Specialty Start Date End Date Xena Mccallum MD [address] [place] [address] PCP - General Family Medicine 09/04/22 Isabel Li NP PCP - [facility] 10/28/23 documented as of this encounter
--- OUTSIDE RECORDS SUMMARY | 2024-10-28 13:41 | XMS_ITS | Encounter Summary ---
Author Organization [facility] Address [address] [facility] [place] [address] Care Team Providers Care Roads Supervisor Name Role Phone Xena Mccallum MD Primary Care Provider [phone] Isabel Li IN FILE OPERATOR Unavailable Reason for Visit * Reason Onset Date Comments Med Refill 10/20/2024 Encounter Details Date Type Department Care Team (Late st Contact Info) Description 10/20/2024 Refill [facility] [address] [place] [address] Xena Mccallum MD [address] [place] [address] Anxiety Social History Tobacco Use Types Packs/Day Years [...] on file documented as of this encounter Miscellaneous Notes * Telephone Encounter - Vero Nelson MA - 10/20/2024 12:28 PM EDT Attempted to call patient and LMOM to call back. documented in this encounter Plan of Treatment Upcoming Encounters Date Type Department Care Team (Late st Contact Info) Description 11/04/2024 10:50 AM EDT Routine [facility] BCP OB [address] [place] [address] Douglas Lewis, DO [address] [facility] [place] [address] documented as of this encounter Visit Diagnoses Diagnosis Anxiety Anxiety state, unspecified documented in this encounter Care Teams Roads Supervisor Relationship Specialty Start Date End Date Xena Mccallum MD [address] [place] [address] PCP - General Family Medicine 09/04/22 Isabel Li NP PCP - [facility] 10/28/23 documented as of this encounter
[2024-10-28 14:09] VITALS: BP 118/88; PULSE 86
--- OUTSIDE RECORDS SUMMARY | 2024-10-28 18:54 | XMS_ITS | CCD ---
Author Organization [facility] Care Team Providers Care Interlocker Maintainer Name Role Phone XENA MCCALLUM Primary Care Physician [phone] DESMOND, DR SCOTTY English Admitting Unavailable COOK, [...] Provider Guillermo ALVARADO, Isabel Higgins Unavailable Guillermo MAGAZINE PUBLISHERIsabel Unavailable DEBBIE, DOUGLAS Attending Unavailable KATIUSKA, MADDIE Attending Unavailable MADDIE HARP Referring Unavailable DEBBIE, DOUGLAS Attending Unavailable DEBBIE, DOUGLAS Attending Unavailable DEBBIE, DOUGLAS Attending Unavailable DEBBIE, DOUGLAS Attending Unavailable MARY, XENA Bentley Attending Unavailable MARY, XENA Bentley Referring Unavailable DEBBIE, DOUGLAS Referring Unavailable DEBBIE, DOUGLAS Attending Unavailable DEBBIE, DOUGLAS Attending Unavailable DEBBIE, DOUGLAS Attending Unavailable Allergies Allergy Classification Reported Allergen(s) Allergy Type Date of Onset Reaction(s) Facility (20 sources) Clindamycin; Translations: [clindamycin] Drug Allergy 4 Swelling [facility] (3 sources) Penicillin; Translations: [penicillin] Drug Allergy Rash [facility] (2 sources) Clindamycin Drug Allergy 1 [facility] (1 source) Penicillins Drug allergy (disorder) 4 [facility] (20 sources) Lamotrigine Allergy to substance 4 [facility] (20 sources) Morphine Drug Allergy 4 Hives [facility] Healthcare (20 sources) Penicillins Drug Allergy 6 Rash, Unknown [facility] Medications Current Medications Medication Drug Class(es) Dates Sig (Normalized) Sig (Original) busPIRone hydrochloride 10 mg oral tablet (20 sources) Start: 12-10-2023 End: 01-08-2025 busPIRone (Buspar) 10 MG tablet Indications: Anxiety, generalized Take 1 tablet (10 mg) by mouth if needed (1/2 tablet prn at bedtime) 60 tablet 10/21/2024 11/20/2024 Active Start: 03-22-2021 take 1 mg by mouth twice daily busPIRone 5 mg Tab mg tab(s), Oral, BID, Refills(s) 0 Start Date: 03/22/21 Status: Ordered Calcium Carbonate (12 sources) take 1 tablet by mouth once daily Calcium Carbonate (CALCIUM 500 PO) Take 1 tablet by mouth Daily Active cephalexin 500 mg oral capsule (2 sources) Cephalosporin Antibacterial Start: take 1 mg by mouth every twelve hours Keflex 500 mg Cap mg cap(s), Oral, q12hr, Refills(s) 0 Start Date: 03/22/21 Status: Ordered citalopram 20 mg oral tablet (15 sources) Serotonin Reuptake Inhibitor Start: End: take 1 tablet by mouth once daily citalopram (CeleXA) 20 MG tablet Indications: Mood changes Take 1 tablet (20 mg) by mouth Daily 30 tablet 11 10/20/2024 10/20/2025 Active cyclobenzaprine hydrochloride 5 mg oral tablet (19 sources) Muscle Relaxant Start: End: take 1 tablet by mouth twice daily as needed for muscle spasms cyclobenzaprine (Flexeril) 5 MG tablet Indications: Nonintractable headache, unspecified chronicity pattern, unspecified headache type , Cramp and spasm Take 1 tablet (5 mg) by mouth 2 (two) times a day as needed for muscle spasms 60 tablet 09/16/2024 Active Start: 08-03-2024 End: 09-02-2024 take 1 tablet by mouth in the morning cyclobenzaprine (Flexeril) 5 MG tablet Indications: Cramp and spasm Take 1 tablet (5 mg) by mouth in the morning and 1 tablet (5 mg) before bedtime. 60 tablet 08/03/2024 09/02/2024 Active ferrous sulfate 325 mg oral tablet (12 sources) take 1 tablet by mouth once [...] Status: Ordered MV-Min-Fe Fum-FA-DHA ( 1 PO) (12 sources) MV-Min-Fe Fum-FA-DHA ( 1 PO) Take 1 tablet by mouth Daily Active promethazine hydrochloride 12.5 mg oral tablet (20 sources) Phenothiazine Start: 10-20-2024 take 1 tablet by mouth every six hours as needed for nausea and vomiting and nausea and nausea promethazine (Phenergan) 12.5 MG tablet Indications: Nausea Take 1 tablet (12.5 mg) by mouth every 6 (six) hours if needed for nausea or vomiting for up to 30 doses Take 1 tablet by mouth every 6 hours as needed for nausea. 30 tablet 10/21/2024 Active Start: 08-03-2024 take 1 tablet by naomie th every [...] index 30+ - obesity 08-16-2021 Chronic Other screening for suspected conditions (not mental [...] of ] 06-17-2024 Episodic Residual codes; unclassified (2 sources) Gestation [...] [33 weeks gestation of ] 10-07-2024 Episodic Residual codes; unclassified (2 sources) Gestation period, 36 weeks; Translations: [36 weeks gestation of ] 10-28-2024 Episodic Spondylosis; intervertebral disc disorders; other back [...] 06-18-2023 Episodic Other aftercare (1 source) Other jail (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; Translations: [OTH [facility] CURRENT DRUG THERAPY] Onset: 06-09-2021 Episodic Other [...] 06-18-2023 Episodic Other and delivery including normal (20 sources) Encounter for care and examination of lactating mother; Translations: [Single live ] Onset: 05-22-2021 Episodic Residual codes; unclassified (1 source) 39 weeks gestation of ; Translations: [39 WEEKS GESTATION OF ] Onset: 06-09-2021 Episodic Residual codes; unclassified (20 sources) Insomnia; Translations: [Insomnia, unspecified] Onset: 06-18-2023 06-18-2023 Episodic Residual codes; unclassified (20 sources) Gestation period, 22 weeks; Translations: [22 weeks gestation of ] Onset: 07-16-2024 07-16-2024 Episodic Umbilical cord complication (1 source) Labor and delivery complicated by cord around neck, without compression, not applicable or unspecified; Translations: [L AND D COMP CORD NECK NO COMPRS NA/UNS] Onset: 06-09-2021 Episodic Unclassified (1 source) CONTACT W/AND (SUSP) EXPOS COVID-19; Translations: [CONTACT W/AND (SUSP) EXPOS COVID-19] Onset: 12-28-2021 Results Test Name Value Interpretation Reference Range Facility US OB BPP W NON-STRESS on 10-28-2024 [place] [address] Ultrasound Report Signed Patient: TAN MARS MR#: [id number] : 1995 Acct:[id number] Age/Sex: 29 / F ADM Date: 10/28/24 Loc: US Attending Dr: Douglas Lewis D.O. Ordering Physician: Douglas Lewis D.O. Date of Service: 10/28/24 Procedure(s): US OB BPP w non-stress Accession Number(s): [id number] cc: XENA MCCALLUM ; Douglas Lewis D.O. The [address] [address] Patient Name: TAN MARS MRN: [id number] date: 1995 Sex: F Assigned Patient Location: [facility] Current Patient Location: Accession/Order Number: [id number] Exam Date: 10/28/2024 14:44 Report Date: 10/28/2024 14:46 At the request of: DOUGLAS LEIWS DO Procedure: US OB BPP w non-stress Biophysical profile. Reason for exam: History of gastric bypass. COMPARISON: BPP 10/21/2024 TECHNIQUE: Transabdominal imaging of the gravid uterus was obtained. FINDINGS: Power Line Installer reports a BPP of 8 out of 8. PATITO is normal at 23.7 cm. heart rate 145 bpm. US/US OB BPP w non-stress IMPRESSION: BPP 8 out of 8. Impression dictated by: Isac Becker Jr., D.O. 10/28/2024 2:46 PM Dictation Location: [place] [address] Electronically authenticated by: [id number] Y Date: 10/28/2024 14:46 Dictated By: Isac Becker M.D. Signed By: 10/28/24 1449 DD/ 1446 TD/TT: Certified Executive Chef: [facility] Radiology, Radiologist, MD - 10/28/2024 [place] [address] Ultrasound Report Signed Patient: TAN MARS MR#: [id number] : 1995 Acct:[id number] Age/Sex: 29 / F ADM Date: 10/28/24 Loc: US Attending Dr: Douglas Lewis D.O. Ordering Physician: Douglas Lewis D.O. Date of Service: 10/28/24 Procedure(s): US OB BPP w non-stress Accession Number(s): [id number] cc: XENA MCCALLUM ; Douglas Lewis D.O. The [address] [address] Patient Name: TAN MARS MRN: [facility]:[id number] date: 1995 Sex: F Assigned Patient Location: [facility] Current Patient Location: Accession/Order Number: [id number] Exam Date: 10/28/2024 14:44 Report Date: 10/28/2024 14:46 At the request of: DOUGLAS LEWIS DO Procedure: US OB BPP w non-stress Biophysical profile. Reason for exam: History of gastric bypass. COMPARISON: BPP 10/21/2024 TECHNIQUE: Transabdominal imaging of the gravid uterus was obtained. FINDINGS: Power Line Installer reports a BPP of 8 out of 8. PATITO is normal at 23.7 cm. heart rate 145 bpm. US/US OB BPP w non-stress IMPRESSION: BPP 8 out of 8. Impression dictated by: Isac Becker Jr., D.O. 10/28/2024 2:46 PM Dictation Location: [place] [address] Electronically authenticated by: [id number] Y Date: 10/28/2024 14:46 Dictated By: Isac Becker M.D. Signed By: 10/28/24 1449 DD/ 144 TD/TT: Certified Executive Chef: [facility] Radiology Study observation (narrative) [facility] US OB BPP W NON-STRESS Ordered By: Radiologist Radiology on 10-28-[address] [facility] Work Phone: US OB BPP W NON-STRESS on 10-21-2024 [place] [address] Ultrasound Report Signed Patient: TAN MARS MR#: [id number] : 1995 Acct:[id number] Age/Sex: 29 / F ADM Date: 10/21/24 Loc: US Attending Dr: Douglas Lewis D.O. Ordering Physician: Douglas Lewis D.O. Date of Service: 10/21/24 Procedure(s): US OB BPP w non-stress Accession Number(s): [id number] cc: XENA MCCALLUM ; Douglas Lewis D.O. [address] [id number] Patient Name: TAN MARS MRN: [id number] date: 1995 Sex: F Assigned Patient Location: Current Patient Location: US Accession/Order Number: [id number] Exam Date: 10/21/2024 16:11 Report Date: 10/21/2024 16:12 At the request of: DOUGLAS LEWIS DO Procedure: US OB BPP w non-stress Biophysical profile. Reason for exam: History of gastric bypass. COMPARISON: BPP 10/14/2024. TECHNIQUE: Transabdominal imaging of the gravid uterus was obtained. FINDINGS: Power Line Installer reports a BPP of 8 out of 8. PATITO is normal at 20.6 cm. heart rate 147 bpm. US/US OB BPP w non-stress IMPRESSION: BPP 8 out of 8. Impression dictated by: Isac Becker Jr., D.O. 10/21/2024 4:12 PM Dictation Location: [place] [address] Electronically authenticated by: [id number] Y Date: 10/21/2024 16:12 Dictated By: Isac Becker M.D. Signed By: 10/21/241613 DD/ 11 TD/TT: Certified Executive Chef: [facility] Radiology, Radiologist, MD - 10/21/2024 [place] [address] Ultrasound Report Signed Patient: TAN MARS MR#: [id number] : 1995 Acct:[id number] Age/Sex: 29 / F ADM Date: 10/21/24 Loc: US Attending Dr: Douglas Lewis D.O. Ordering Physician: Douglas Lewis D.O. Date of Service: 10/21/24 Procedure(s): US OB BPP w non-stress Accession Number(s): [id number] cc: XENA MCCALLUM ; Douglas Lewis D.O. The [place] [id number] Patient Name: TAN MARS MRN: [facility]:[id number] date: 1995 Sex: F Assigned Patient Location: US Current Patient Location: US Accession/Order Number: [id number] Exam Date: 10/21/2024 16:11 Report Date: 10/21/2024 16:12 At the request of: DOUGLAS LEWIS DO Procedure: US OB BPP w non-stress Biophysical profile. Reason for exam: History of gastric bypass. COMPARISON: BPP 10/14/2024. TECHNIQUE: Transabdominal imaging of the gravid uterus was obtained. FINDINGS: Power Line Installer reports a BPP of 8 out of 8. PATITO is normal at 20.6 cm. heart rate 147 bpm. US/US OB BPP w non-stress IMPRESSION: BPP 8 out of 8. Impression dictated by: Isac Becker Jr., D.O. 10/21/2024 4:12 PM Dictation Location: [place] [address] Electronically authenticated by: [id number] Y Date: 10/21/2024 16:12 Dictated By: Isac Becker M.D. Signed By: 10/21/241613 DD/ 11 TD/TT: Certified Executive Chef: [facility] Radiology Study observation (narrative) [facility] US OB BPP W NON-STRESS Ordered By: Radiologist Radiology on 10-21-[address] [facility] Work Phone: US OB BPP W NON-STRESS on 10-14-2024 [place] [address] Ultrasound Report Signed Patient: TAN MARS MR#: [id number] : 1995 Acct:[id number] Age/Sex: 29 / F ADM Date: 10/14/24 Loc: US Attending Dr: Douglas Lewis D.O. Ordering Physician: Douglas Lewis D.O. Date of Service: 10/14/24 Procedure(s): US OB BPP w non-stress Accession Number(s): [id number] cc: XENA MCCALLUM ; Douglas Lewis D.O. The [address] [address] Patient Name: TAN MARS MRN: [id number] date: 1995 Sex: F Assigned Patient Location: [facility] Current Patient Location: Accession/Order Number: [id number] Exam Date: 10/14/2024 09:47 Report Date: 10/14/2024 09:51 At the request of: DOUGLAS DEBBIE DO Procedure: US OB BPP w non-stress [...] Morales M.D. 10/14/2024 9:51 AM Dictation Location: [place] [address] Electronically authenticated by: [id number] Y Date: 10/14/2024 09:51 Dictated By: Thelma Morales M.D. Signed By: 10/14/24 0954 DD/ 0951 TD/TT: Certified Executive Chef: [facility] Radiology, Radiologist, - 10/14/2024 [place] [address] Ultrasound Report Signed Patient: TAN MARS MR#: [id number] : 1995 Acct:[id number] Age/Sex: 29 / F ADM Date: 10/14/24 Loc: US Attending Dr: Douglas Lewis D.O. Ordering Physician: Douglas Lewis D.O. Date of Service: 10/14/24 Procedure(s): US OB BPP w non-stress Accession Number(s): [id number] cc: XENA MCCALLUM ; Douglas Lewis D.O. [address] [address] Patient Name: TAN MARS MRN: [id number] date: 1995 Sex: F Assigned Patient Location: [facility] Current Patient Location: Accession/Order Number: [id number] Exam Date: 10/14/2024 09:47 Report Date: 10/14/2024 09:51 At the request of: DOUGLAS LEWIS DO [...] non-stress IMPRESSION: NORMAL BIOPHYSICAL PROFILE. INCREASE IN PATIOT SINCE THE PRIOR. FOLLOW-UP ON SUBSEQUENT STUDIES IS SUGGESTED. Impression dictated by: Thelma Morales M.D. 10/14/2024 9:51 AM Dictation Location: [place] [address] Electronically authenticated by: [id number] Y Date: 10/14/2024 09:51 Dictated By: Thelma Morales M.D. Signed By: 10/14/2454 DD/ TD/TT: Certified Executive Chef: [facility] Radiology Study observation (narrative) [facility] OB BPP W NON-STRESS Ordered By: Radiologist Radiology on 10-14-[address] [facility] Work Phone: OB BPP W NON-STRESS on 10-07-[address] [address] Ultrasound Report Signed Patient: TAN MARS MR#: [id number] : 1995 Acct:[id number] Age/Sex: 29 / F ADM Date: 10/07/24 Loc: US Attending Dr: Douglas Lewis D.O. Ordering Physician: Douglas Lewis D.O. Date of Service: 10/07/24 Procedure(s): US OB BPP w non-stress Accession Number(s): [id number] cc: XENA MCCALLUM ; Douglas Lewis D.O. [place] [id number] Patient Name: TAN MARS MRN: [id number] date: 1995 Sex: F Assigned Patient Location: [facility] Current Patient Location: Accession/Order Number: [id number] Exam Date: 10/07/2024 09:20 Report Date: 10/07/2024 [...] Morales M.D. 10/07/2024 9:21 AM Dictation Location: [place] [address] Electronically authenticated by: [id number] Y Date: 10/07/2024 09:21 Dictated By: Thelma Morales M.D. Signed By: 10/07/24923 DD/ 0 TD/TT: Certified Executive Chef: [facility] Radiology, Radiologist, - 10/07/2024 [place] [address] Ultrasound Report Signed Patient: TAN MARS MR#: [id number] : 1995 Acct:[id number] Age/Sex: 29 / F ADM Date: 10/07/24 Loc: US Attending Dr: Douglas Lewis D.O. Ordering Physician: Douglas Lewis D.O. Date of Service: 10/07/24 Procedure(s): US OB BPP w non-stress Accession Number(s): [id number] cc: XENA MCCALLUM ; Douglas Lewis D.O. The [place] [address] Patient Name: TAN MARS MRN: [facility]:[id number] date: 1995 Sex: F Assigned Patient Location: [facility] Current Patient Location: Accession/Order Number: [id number] Exam Date: 10/07/2024 09:20 Report Date: 10/07/2024 [...] Morales M.D. 10/07/2024 9:21 AM Dictation Location: [place] [address] Electronically authenticated by: [id number] Y Date: 10/07/2024 09:21 Dictated By: Thelma Morales M.D. Signed By: 10/07/24923 DD/ 0 TD/TT: Certified Executive Chef: [facility] Radiology Study observation [...] Urobilinogen, UA 0.2 0.2 - 12 mg/dL [facility] US OB FOLLOW UP TRANSABDOMIN AL APPROACHon [...] II, MD, PHD at 15-Sep-2024 10:59:56 PM [facility] Normal Not Available Comment on above: Order Comment: US OB SCAN FOR GROWTH Estimated Date of Delivery: 11/19/24 Gestational Age as of 09/08/2024: 29w5d [facility] CMP (CMP) (FOR REMOTE FH C USE)on 07-22-2024 Albumin [Mass/Vol] 2.9 g/dL Low 3.4 - 5.0 g/dL [facility] ALBUMIN GLOBULIN RATIO 0.7 [facility] ALP [Catalytic activity/Vol] 72 U/L 46 - 116 U/L [facility] ALT [Catalytic activity/Vol] 17 U/L 14 - 59 U/L [facility] Anion gap [Moles/Vol] 11.3 mmol/L [facility] AST [Catalytic activity/Vol] 17 U/L 15 - 37 U/L [facility] Bilirubin [Mass/Vol] 0.2 mg/dL 0.2 - 1 .0 mg/dL [facility] Calcium [Mass/Vol] 8.5 mg/dL 8.5 - 10. 1 mg/dL [facility] Chloride [Moles/Vol] 104 mmol/L 98 - 10 7 mmol/L [facility] CO2 [Moles/Vol] 25.6 mmol/L 21.0 - 32.0 mmol/L [facility] Creatinine [Mass/Vol] 0.49 mg/dL Low 0.55 - 1.02 mg/dL [facility] GFR/1.73 sq M.predicted CKD-EPI (S/P/Bld) [Vol rate/Area] [...] [facility] EGFR-NON AF LAO >60 >=60 mL/min/1.73m [address] [facility] [facility] [place] Glucose, UA 1+ Negative - 1999(110) ++++ mg/dL [facility] Comment [...] [facility] [place] Protein, UA Negative Negative - 1999(20) ++++ mg/dL [facility] Spec Grav, UA 1.015 1 - 1.[address] [facility] Urobilinogen, UA 0.2 0.2 - 12 mg/dL [facility] US OB 14+ WEEKS ANATOMY SCAN on [...] ultrasound of the anatomy. Electronically Signed: Electronically Signed:Lisaall y signed by STARR PALOMINO II, MD, PHD at 11-Jul-2024 06:17:29 PM [facility] Normal Not Available Comment on above: Order [...] mg/dL [facility] Leukocytes, UA Positive Negative - 500+++ Mele/mcL [facility] Comment on above: small Nitrite, UA Negative Negative - Positive [facility] pH, UA 7 5 - [address] [facility] Protein, UA Positive Negative - 1999(20) ++++ mg/dL [facility] Comment on above: 30 mg Spec Grav, UA 1.015 1 - 1.[address] [facility] Urobilinogen, UA 0.2 0.2 - 12 mg/dL [facility] Urinalysis macro (dipstick) panel (U)on 05-20-2024 Bilirubin, [...] Positive [facility] pH, UA 5.5 5 - [address] [facility] Protein, UA Negative Negative - 1999(20) ++++ mg/dL [facility] Spec Grav, UA 1.03 1 - 1.[address] [facility] Urobilinogen, UA 0.2 0.2 - 12 mg/dL [facility] BOX TESTon 05-11-2024 BOX TEST SENT OUT [facility] BOX1 [facility] BOX2 05/11/2024 [facility] HCG ( test) Ql (U)o n 04-17-2024 Interpretation and review of laboratory results Abnormal [facility] Preg Test, Ur Positive Negative [facility] Urinalysis macro (dipstick) panel (U)on 04-17-2024 Bilirubin, [...] [facility] [place] Protein, UA Negative Negative - 1999(20) ++++ mg/dL [facility] Spec Grav, UA 1.02 1 - 1.[address] [facility] Urobilinogen, UA 0.2 0.2 - 12 mg/dL [facility] ALL CBC WITH AUTO DIFFon BASOPHILS ABSOLUTE [...] vol] 9.8 fL 9.5 - 13.5 [facility]L [facility] PLT 430 [facility] RBC 5.06 [facility] WBC 11.[address] [facility] CT ABDOMEN PELVIS WO IV CONT STEPHENTon [...] report is generated using voice recognition reporting (Kitani). On occasion [employer] erroneously drops words from the report or [...] Nom ( U)on 01-11-2024 Appearance (U) Adequate [facility] Internal identifier for Provider [id number] [facility] Specimen source Nom (Unsp spec) URINE [facility] STATUS FINAL [facility] - Microbiology an d Antimicrobial susceptibilityon 01-11-2024 Bacteria identified Cx Nom (U) SEE NOTE [facility] Comment on above: Less than 10,000 CFU/mL [...] Performing Organization Information Site ID: QPT Name: [facility] Address: [place] , [address] [place] [id number] Director: Brenden Conde MD [facility] Urinalysis complete panel (U )on 01-11-2024 Appearance [...] Urobilinogen, UA 1.0 0.2 - 12 mg/dL [facility] Physician Orderon 03-26-2023 Physician Order [id number] #1.00TIFF Normal [facility] Formson 09-13-2022 Forms [id number] #1.00CD:127 Normal [facility] XR KUB 1 VIEWon 04-09-2022 XR [...] by: GENARO RODRÍGUEZ Date: 2022-04-09 18:02 Normal [facility] VITAMIN B1 (THIAMINE)on Vit. B1, Whole Blood 117.7 nmol/L Normal 66.5-200.0 [facility] Comment on above: Performed By: #### C VDTBH #### [facility] [address] [place] [address] [address] Kerrie Russell CBC AUTO DIFFon 02-28-2022 BASO # 0.1 103/ul Normal 0.0-0.1 [facility] Comment on above: Performed By: #### C BC #### [facility] [address] [place] [address] [address] Kerrie Russell Basophils/100 WBC (Bld) 0.6 % Normal 0.2-2.0 [facility] Comment on above: Performed By: #### C BC #### [facility] [address] [place] [address] [address] Kerrie Russell EO # 0.1 103/ul Normal 0.0-0.7 [facility] Comment on above: Performed By: #### C BC #### [facility] [address] [place] [address] [address] Kerrie Russell Eosinophils/100 WBC (Bld) 1.3 % Normal 0.9-7.0 [facility] Comment on above: Performed By: #### C BC #### [facility] [address] [place] [address] Dr. Kerrie Russell Erythrocyte distribution width (RBC) [Ratio] 13.2 % Normal 11.0-15.0 [facility] Comment on above: Performed By: #### C BC #### [facility] [address] [place] [address] Dr. Kerrie Russell Hematocrit (Bld) [Volume fraction] 40.6 % Normal 36.0-48.0 [facility] Comment on above: Performed By: #### C BC #### [facility] [address] [place] [address] Dr. Kerrie Russell Hemoglobin (Bld) [Mass/Vol] 13.8 g/dL Normal 12.0-16.0 [facility] Comment on above: Performed By: #### C BC #### [facility] [address] [place] [address] Dr. Kerrie Russell IG # 0.02 10e3/ul Normal 0.00-0.03 [facility] Comment on above: Performed By: #### C BC #### [facility] [address] [place] [address] Dr. Kerrie Russell IG % 0.2 % Normal 0.0-0.5 [facility] Comment on above: Performed By: #### C BC #### [facility] [address] [place] [address] Dr. Kerrie Russell LYMPH # 4.3 103/ul Critically high 1.2-3.8 [facility] Comment on above: Performed By: #### C BC #### [facility] [address] [place] [address] Dr. Kerrie Russell Lymphocytes/100 WBC (Bld) 49.2 % Normal 20.5-60.0 [facility] Comment on above: Performed By: #### C BC #### [facility] [address] [place] [address] Dr. Kerrie Russell MANUAL DIFF REQ NO Normal [facility] Comment on above: Performed By: #### C BC #### [facility] [address] [place] [address] Dr. Kerrie Russell MCH (RBC) [Entitic mass] 28.3 pg Normal 26.7-34.0 [facility] Comment on above: Performed By: #### C BC #### [facility] [address] [place] [address] Dr. Kerrie Russell MCHC (RBC) [Mass/Vol] 34.0 g/dL Normal 29.9-35.2 [facility] [facility] Comment on above: Performed By: #### C BC #### [facility] [address] [place] [address] Dr. Kerrie Russell MCV (RBC) [Entitic vol] 83.2 fL Normal 81.0-99.0 [facility] Comment on above: Performed By: #### C BC #### [facility] [address] [place] [address] Dr. Kerrie Russell MONO # 0.5 103/ul Normal 0.3-0.8 [facility] Comment on above: Performed By: #### C BC #### [facility] [address] [place] [address] Dr. Kerrie Russell Monocytes/100 WBC (Bld) 5.9 % Normal 1.7-12.0 [facility] Comment on above: Performed By: #### C BC #### [facility] [address] [place] [address] Dr. Kerrie Russell NEUT # 3.7 103/ul Normal 1.4-6.5 [facility] Comment on above: Performed By: #### C BC #### [facility] [address] [address] [address] Kerrie Russell Neutrophils/100 WBC (Bld) 42.8 % Critically low 43.0-75.0 [facility] Comment on above: Performed By: #### C BC #### [facility] [address] [place] [address] Dr. Kerrie Russell Platelet mean volume (Bld) [Entitic vol] 9.6 fL Normal 9.5-13.5 [facility] Comment on above: Performed By: #### C BC #### [facility] [address] [address] [address] Kerrie Russell PLT 403 103/ul Normal 150-450 [facility] Comment on above: Performed By: #### C BC #### [facility] [address] [place] [address] Dr. Kerrie Russell RBC 4.88 106/ul Normal 4.20-5.40 [facility] Comment on above: Performed By: #### C BC #### [facility] [address] [place] [address] Dr. Kerrie Russell WBC 8.7 103/ul Normal 4.0-11.0 [facility] Comment on above: Performed By: #### C BC #### [facility] [address] [place] [address] Dr. Kerrie Russell FERRITINon 02-28-2022 Ferritin [Mass/Vol] 73.0 ng/mL Normal 6.2-137.0 The [facility] Comment on above: Performed By: #### P HOS, MG, CMP #### [facility] [address] [place] [address] Dr. Kerrie Russell IRON AND TIBCon 02-28-2022 % SATURATION 12.4 % Normal [facility] Comment on above: Performed By: #### P HOS, MG, CMP #### [facility] [address] [place] [address] Dr. Kerrie Russell Iron [Mass/Vol] 44.0 ug/dL Critically low 50.0-170.0 [facility] Comment on above: Performed By: #### P HOS, MG, CMP #### [facility] [address] [place] [address] Dr. Kerrie Russell TIBC DIRECT 354.0 ug/dL Normal 250.0-450.0 [facility] Comment on above: Performed By: #### P HOS, MG, CMP #### [facility] [address] [place] [address] Dr. Kerrie Russell MAGNESIUMon 02-28-2022 Magnesium [Mass/Vol] 1.9 mg/dL Normal 1.8-2.4 [facility] Comment on above: Performed By: #### M G, PHOS, CMP #### [facility] [address] [place] [address] Dr. Kerrie Russell PHOSPHORUSon 02-28-2022 Phosphate [Mass/Vol] 3.7 mg/dL Normal 2.6-4.7 [facility] Comment on above: Performed By: #### M Daisha PHOS, CMP #### [facility] [address] [place] [address] Dr. Kerrie Russell PROF 14(COMP METB)on 022 Albumin [Mass/Vol] 3.9 g/dL Normal 3.4-5.0 [facility] Comment on above: Performed By: #### M Daisha PHOS, CMP #### [facility] [address] [place] [address] Dr. Kerrie Russell Albumin/Globulin [Mass ratio] 1.1 {ratio} Normal [facility] Comment on above: Performed By: #### M G PHOS, CMP #### [facility] [address] [place] [address] Dr. Kerrie Russell ALP [Catalytic activity/Vol] 99 U/L Normal 46-116 [facility] Comment on above: Performed By: #### M G, PHOS, CMP #### [facility] [address] [place] [address] Dr. Kerrie Russell ALT [Catalytic activity/Vol] 32 U/L Normal 14-59 [facility] Comment on above: Performed By: #### M G PHOS, CMP #### [facility] [address] [address] [address] Kerrie Russell Anion gap [Moles/Vol] 9.3 mmol/L Normal [facility] Comment on above: Performed By: #### M SUZANNE [place]hton, CMP #### [facility] [address] [address] [address] Kerrie Russell AST [Catalytic activity/Vol] 17 U/L Normal 15-37 [facility] Comment on above: Performed By: #### M NATHALY AshtonS, CMP #### [facility] [address] [address] [address] Kerrie Russell Bilirubin [Mass/Vol] 0.2 mg/dL Normal 0.2-1.0 [facility] Comment on above: Performed By: #### M Daisha PHOS, CMP #### [facility] [address] [address] [address] Kerrie Russell Calcium [Mass/Vol] 8.5 mg/dL Normal 8.5-10.1 [facility] Comment on above: Performed By: #### NATHALY CookS, CMP #### [facility] [address] [address] [address] Kerrie Russell Chloride [Moles/Vol] 107 mmol/L Normal 98-107 [facility] Comment on above: Performed By: #### M NATHALY AshtonS, CMP #### [facility] [address] [address] [address] Kerrie Russell CO2 [Moles/Vol] 27.0 mmol/L Normal 21.0-32.0 The [facility] Comment on above: Performed By: #### M Daisha PHOS, CMP #### [facility] [address] [address] [address] Kerrie Russell Creatinine [Mass/Vol] 0.65 mg/dL Normal 0.55-1.02 [facility] Comment on above: Performed By: #### M Daisha PHOS, CMP #### [facility] [address] [address] [address] Kerrie Russell EGFR-AF LAO >60 Normal >=60 [facility] [place] Comment on above: Performed By: #### M G, PHOS, CMP #### [facility] [address] [address] [address] Kerrie Russell EGFR-NON AF LAO >60 Normal >=60 [facility] Comment on above: Performed By: #### M G, PHOS, CMP #### [facility] [address] [address] [address] Kerrie Russell Globulin (S) [Mass/Vol] 3.6 g/dL Normal [facility] Comment on above: Performed By: #### M G, PHOS, CMP #### [facility] [address] [address] [address] Kerrie Russell Glucose [Mass/Vol] 89 mg/dL Normal 74-106 [facility] Comment on above: Performed By: #### M G, PHOS, CMP #### [facility] [address] [place] [address] Dr. Kerrie Russell Potassium [Moles/Vol] 3.3 mmol/L Critically low 3.5-5.1 [facility] Comment on above: Performed By: #### M G, PHOS, CMP #### [facility] [address] [address] [address] Kerrie Russell Protein [Mass/Vol] 7.5 g/dL Normal 6.4-8.2 [facility] Comment on above: Performed By: #### M G, PHOS, CMP #### [facility] [address] [address] [address] Kerrie Russell Sodium [Moles/Vol] 140 mmol/L Normal 136-145 [facility] Comment on above: Performed By: #### M G, PHOS, CMP #### [facility] [address] [address] [address] Kerrie Russell Urea nitrogen [Mass/Vol] 9.0 mg/dL Normal 7.0-18.0 [facility] Comment on above: Performed By: #### M G, PHOS, CMP #### [facility] [address] [address] [address] Kerrie Russell Urea nitrogen/Creatinine [Mass ratio] 13.8 mg/mg Normal [facility] Comment on above: Performed By: #### M G PHOS, CMP #### [facility] [address] [address] [address] Kerrie Russell VIT B12 AND FOLATEon 022 Cobalamin (Vitamin B12) [Mass/Vol] 538.0 pg/mL Normal 193.0-986.0 [facility] Comment on above: Performed By: #### P HOS, MG, CMP #### [facility] [address] [address] [address] Kerrie Russell FOLATE 8.50 ng/mL Critically low 8.60-58.90 [facility] Comment on above: Performed By: #### P HOS, MG, CMP #### [facility] [address] [address] [address] Kerrie Russell VITAMIN D 25 OHon 02-28-2022 VIT D 25-OH 33.0 ng/mL Normal [facility] Comment on above: Performed By: #### P HOS, MG, CMP #### [facility] [address] [address] [address] Kerrie Russell VIT D RANGES SEE BELOW Normal [facility] Comment on above: Result Comment: <20 ng/mL Vit D deficient 20 - <30 ng/mL Vit D insufficient 30 - 100 ng/mL Vit D sufficient >100 ng/mL Potential Toxicity Performed By: #### P HOS, MG, CMP #### [facility] [address] [place] [address] Dr. Kerrie Russell Covid-19 PCR (CVDTB)on SARS-CoV-2 (COVID-19) RNA DEZ+probe Ql (Unsp spec) Not detected Normal NOT DETECTED [facility] Comment on above: Result Comment: This test is not yet approved or cleared by the [place] FDA. When there are no FDA-approved or cleared tests available, and other criteria are met, FDA can make tests available under an emergency access mechanism called an Emergency Use Authorization (EUA). The EUA for this test is supported by the [place] of Health and Human Service's (HHS's) declaration [...] SARS-CoV-2. Performed By: #### C VDTBH #### [facility] [address] [place] [address] Dr. Kerrie Russell Covid-19 PCR ([facility])on SARS-CoV-2 (COVID-19) RNA DEZ+probe Ql (Unsp spec) Not detected Normal NOT DETECTED [facility] Comment on above: Result Comment: This test is not yet approved or cleared by the [place] FDA. When there are no FDA-approved or cleared tests available, and other criteria are met, FDA can make tests available under an emergency access mechanism called an Emergency Use Authorization (EUA). The EUA for this test is supported by the [place] of Health and Human Service's (HHS's) declaration [...] By: #### P HOS, MG, CMP #### [facility] [address] [place] [address] [address] [address] Kerrie Russell VITAMIN B1 (THIAMINE)on 07-29 Vit. B1, Whole Blood 118.6 nmol/L Normal 66.5-200.0 [facility] Comment on above: Performed By: #### C VDTBH #### [facility] [address] [place] [address] Dr. Kerrie Russell CBC AUTO DIFFon 08-11-2021 BASO # 0.0 103/ul Normal 0.0-0.1 [facility] Comment on above: Performed By: #### P HOS, MG, CMP #### [facility] [address] [place] [address] Dr. Kerrie Russell Basophils/100 WBC (Bld) 0.3 % Normal 0.2-2.0 [facility] Comment on above: Performed By: #### P HOS, MG, CMP #### [facility] [address] [place] [address] Dr. Kerrie Russell EO # 0.1 103/ul Normal 0.0-0.7 [facility] Comment on above: Performed By: #### P HOS, MG, CMP #### [facility] [address] [place] [address] Dr. Kerrie Russell Eosinophils/100 WBC (Bld) 1.5 % Normal 0.9-7.0 [facility] Comment on above: Performed By: #### P HOS, MG, CMP #### [facility] [address] [place] [address] Dr. Kerrie Russell Erythrocyte distribution width (RBC) [Ratio] 15.9 % Critically high 11.0-15.0 [facility] Comment on above: Performed By: #### P HOS, MG, CMP #### [facility] [address] [place] [address] Dr. Kerrie Russell Hematocrit (Bld) [Volume fraction] 34.2 % Critically low 36.0-48.0 [facility] Comment on above: Performed By: #### P HOS, MG, CMP #### [facility] [address] [place] [address] Dr. Kerrie Russell Hemoglobin (Bld) [Mass/Vol] 10.1 g/dL Critically low 12.0-16.0 [facility] Comment on above: Performed By: #### P HOS, MG, CMP #### [facility] [address] [address] [address] Kerrie Russell IG # 0.03 10e3/ul Normal 0.00-0.03 [facility] Comment on above: Performed By: #### P HOS, MG, CMP #### [facility] [address] [address] [address] Kerrie Russell IG % 0.3 % Normal 0.0-0.5 [facility] Comment on above: Performed By: #### P HOS, MG, CMP #### [facility] [address] [address] [address] Kerrie Russell LYMPH # 3.3 103/ul Normal 1.2-3.8 [facility] Comment on above: Performed By: #### P HOS, MG, CMP #### [facility] [address] [place] [address] Dr. Kerrie Russell Lymphocytes/100 WBC (Bld) 37.2 % Normal 20.5-60.0 [facility] Comment on above: Performed By: #### P HOS, MG, CMP #### [facility] [address] [address] [address] Kerrie Russell MANUAL DIFF REQ NO Normal [facility] Comment on above: Performed By: #### P HOS, MG, CMP #### [facility] [address] [place] [address] Dr. Kerrie Russell MCH (RBC) [Entitic mass] 20.7 pg Critically low 26.7-34.0 [facility] Comment on above: Performed By: #### P HOS, MG, CMP #### [facility] [address] [place] [address] Dr. Kerrie Russell MCHC (RBC) [Mass/Vol] 29.5 g/dL Critically low 29.9-35.2 [facility] Comment on above: Performed By: #### P HOS, MG, CMP #### [facility] [address] [place] [address] Dr. Kerrie Russell MCV (RBC) [Entitic vol] 70.1 fL Critically low 81.0-99.0 [facility] Comment on above: Performed By: #### P HOS, MG, CMP #### [facility] [address] [address] [address] Kerrie Russell MONO # 0.6 103/ul Normal 0.3-0.8 [facility] Comment on above: Performed By: #### P HOS, MG, CMP #### [facility] [address] [place] [address] Dr. Kerrie Russell Monocytes/100 WBC (Bld) 7.3 % Normal 1.7-12.0 [facility] Comment on above: Performed By: #### P HOS, MG, CMP #### [facility] [address] [place] [address] Dr. Kerrie Russell NEUT # 4.7 103/ul Normal 1.4-6.5 [facility] Comment on above: Performed By: #### P HOS, MG, CMP #### [facility] [address] [place] [address] Dr. Kerrie Russell Neutrophils/100 WBC (Bld) 53.4 % Normal 43.0-75.0 [facility] Comment on above: Performed By: #### P HOS, MG, CMP #### [facility] [address] [place] [address] Dr. Kerrie Russell Platelet mean volume (Bld) [Entitic vol] 9.1 fL Critically low 9.5-13.5 [facility] Comment on above: Performed By: #### P HOS, MG, CMP #### [facility] [address] [place] [address] Dr. Kerrie Russell PLT 339 103/ul Normal 150-450 [facility] Comment on above: Performed By: #### P HOS, MG, CMP #### [facility] [address] [place] [address] Dr. Kerrie Russell RBC 4.88 106/ul Normal 4.20-5.40 [facility] Comment on above: Performed By: #### P HOS, MG, CMP #### [facility] [address] [place] [address] Dr. Kerrie Russell WBC 8.8 103/ul Normal 4.0-11.0 [facility] Comment on above: Performed By: #### P HOS, MG, CMP #### [facility] [address] [place] [address] Dr. Kerrie Russell FERRITINon 08-11-2021 Ferritin [Mass/Vol] 4.0 ng/mL Critically low 6.2-137.0 [facility] Comment on above: Performed By: #### C VDTBH #### [facility] [address] [place] [address] Dr. Kerrie Russell IRON AND TIBCon 08-11-2021 % SATURATION 3.7 % Normal [facility] Comment on above: Performed By: #### C VDTBH #### [facility] [address] [place] [address] Dr. Kerrie Russell Iron [Mass/Vol] 19.0 ug/dL Critically low 37.0-170.0 [facility] Comment on above: Performed By: #### C VDTBH #### [facility] [address] [place] [address] Dr. Kerrie Russell TIBC DIRECT 513.0 ug/dL Critically high 261.0-497.0 [facility] Comment on above: Performed By: #### C VDTBH #### [facility] [address] [place] [address] Dr. Kerrie Russell MAGNESIUMon 08-11-2021 Magnesium [Mass/Vol] 2.0 mg/dL Normal 1.6-2.3 [facility] Comment on above: Performed By: #### P HOS, MG, CMP #### [facility] [address] [place] [address] Dr. Kerrie Russell PHOSPHORUSon 08-11-2021 Phosphate [Mass/Vol] 4.8 mg/dL Critically high 2.5-4.5 [facility] Comment on above: Performed By: #### P HOS, MG, CMP #### [facility] [address] [place] [address] Dr. Kerrie Russell PROF 14(COMP METB)on 022 Albumin [Mass/Vol] 3.8 g/dL Normal 3.4-5.0 [facility] Comment on above: Performed By: #### P HOS, MG, CMP #### [facility] [address] [address] [address] Kerrie Russell Albumin/Globulin [Mass ratio] 0.9 {ratio} Normal [facility] Comment on above: Performed By: #### P HOS, MG, CMP #### [facility] [address] [address] [address] Kerrie Russell ALP [Catalytic activity/Vol] 74 U/L Normal 46-116 [facility] Comment on above: Performed By: #### P HOS, MG, CMP #### [facility] [address] [address] [address] Kerrie Russell ALT [Catalytic activity/Vol] 15 U/L Normal 14-59 [facility] Comment on above: Performed By: #### P HOS, MG, CMP #### [facility] [address] [address] [address] Kerrie Russell Anion gap [Moles/Vol] 13.3 mmol/L Normal [facility] Comment on above: Performed By: #### P HOS, MG, CMP #### [facility] [address] [address] [address] Kerrie Russell AST [Catalytic activity/Vol] 11 U/L Critically low 15-37 [facility] Comment on above: Performed By: #### P HOS, MG, CMP #### [facility] [address] [address] [address] Kerrie Russell Bilirubin [Mass/Vol] 0.2 mg/dL Normal 0.2-1.3 [facility] Comment on above: Performed By: #### P HOS, MG, CMP #### [facility] [address] [address] [address] Kerrie Russell Calcium [Mass/Vol] 8.3 mg/dL Critically low 8.5-10.1 [facility] Comment on above: Performed By: #### P HOS, MG, CMP #### [facility] [address] [address] [address] Kerrie Russell Chloride [Moles/Vol] 104 mmol/L Normal 98-107 [facility] Comment on above: Performed By: #### P HOS, MG, CMP #### [facility] [address] [place] [address] Dr. Kerrie Russell CO2 [Moles/Vol] 26.5 mmol/L Normal 22.0-30.0 [facility] Comment on above: Performed By: #### P HOS, MG, CMP #### [facility] [address] [place] [address] Dr. Kerrie Russell Creatinine [Mass/Vol] 0.60 mg/dL Normal 0.52-1.04 [facility] Comment on above: Performed By: #### P HOS, MG, CMP #### [facility] [address] [place] [address] Dr. Kerrie Russell EGFR-AF LAO >60 Normal >=60 [facility] Comment on above: Performed By: #### P HOS, MG, CMP #### [facility] [address] [place] [address] Dr. Kerrie Russell EGFR-NON AF LAO >60 Normal >=60 [facility] Comment on above: Performed By: #### P HOS, MG, CMP #### [facility] [address] [place] [address] Dr. Kerrie Russell Globulin (S) [Mass/Vol] 4.1 g/dL Normal [facility] Comment on above: Performed By: #### P HOS, MG, CMP #### [facility] [address] [place] [address] Dr. Kerrie Russell Glucose [Mass/Vol] 93 mg/dL Normal 74-106 [facility] Comment on above: Performed By: #### P HOS, MG, CMP #### [facility] [address] [place] [address] Dr. Kerrie Russell Potassium [Moles/Vol] 3.8 mmol/L Normal 3.4-5.0 [facility] Comment on above: Performed By: #### P HOS, MG, CMP #### [facility] [address] [place] [address] Dr. Kerrie Russell Protein [Mass/Vol] 7.9 g/dL Normal 6.1-8.2 [facility] Comment on above: Performed By: #### P HOS, MG, CMP #### [facility] [address] [place] [address] Dr. Kerrie Russell Sodium [Moles/Vol] 140 mmol/L Normal 137-145 [facility] Comment on above: Performed By: #### P HOS, MG, CMP #### [facility] [address] [place] [address] Dr. Kerrie Russell Urea nitrogen [Mass/Vol] 14.0 mg/dL Normal 7.0-18.0 [facility] Comment on above: Performed By: #### P HOS, MG, CMP #### [facility] [address] [place] [address] Dr. Kerrie Russell Urea nitrogen/Creatinine [Mass ratio] 23.3 mg/mg Normal [facility] Comment on above: Performed By: #### P HOS, MG, CMP #### [facility] [address] [place] [address] Dr. Kerrie Russell VIT B12 AND FOLATEon 022 Cobalamin (Vitamin B12) [Mass/Vol] 546.0 pg/mL Normal 239.0-931.0 [facility] Comment on above: Performed By: #### C VDTBH #### [facility] [address] [place] [address] Dr. Kerrie Russell FOLATE 17.80 ng/mL Normal >=2.76 [facility] Comment on above: Performed By: #### C VDTBH #### [facility] [address] [place] [address] Dr. Kerrie Russell VITAMIN D 25 OHon 08-11-2021 VIT D 25-OH 35.1 ng/mL Normal [facility] Comment on above: Performed By: #### C VDTBH #### [facility] [address] [place] [address] Dr. Kerrie Russell VIT D RANGES SEE BELOW Normal [facility] Comment on above: Result Comment: <20 ng/mL Vit D deficient 20 - <30 ng/mL Vit D insufficient 30 - 100 ng/mL Vit D sufficient >100 ng/mL Potential Toxicity Performed By: #### C VDTB #### [facility] [address] [place], [place] [address] Dr. Kerrie Russell XR KUB 1 VIEWon [...] MELLISSA SEGAL Date: 2021-08-11 09:44 Normal [facility] Complete Blood Count with Au to Diffon 07-12-2021 Basophils (Bld) [#/Vol] 0.01 10*3/uL Normal 0.00-0.20 [facility] Specialist Comment on above: Performed By: #### F ERR, CBCAD, FE Prof, smear, CMP #### [facility] [address] [place], [place] [id number] Basophils/100 WBC (Bld) 0.2 % Normal [facility] [employer] Member Comment on above: Performed By: #### F ERR, CBCAD, FE Prof, smear, CMP #### [facility] [address] [place], [place] [id number] Eosinophils (Bld) [#/Vol] 0.14 10*3/uL Normal 0.02-0.50 [facility] [employer] Member Comment on above: Performed By: #### F ERR, CBCAD, FE Prof, smear, CMP #### [facility] [address] [place], [place] [id number] Eosinophils/100 WBC (Bld) 2.8 % Normal [facility] City [employer] Member Comment on above: Performed By: #### F ERR, CBCAD, FE Prof, smear, CMP #### [facility] [address] [place], [place] [id number] Erythrocyte distribution width (RBC) [Ratio] 17.0 % High 11.0-15.0 [facility] Specialist Comment on above: Performed By: #### F ERR, CBCAD, FE Prof, smear, CMP #### [facility] [address] [place], [place] [id number] Hematocrit (Bld) [Volume fraction] 34.8 % Low 35.0-47.0 [facility] [employer] Member Comment on above: Performed By: #### F ERR, CBCAD, FE Prof, smear, CMP #### [facility] [address] [place], [place] [id number] Hemoglobin (Bld) [Mass/Vol] 9.8 g/dL Low 11.6-15.5 [facility] City [employer] Member Comment on above: Performed By: #### F ERR, CBCAD, FE Prof, smear, CMP #### [facility] [address] [place], [place] [id number] Lymphocytes (Bld) [#/Vol] 2.1 10*3/uL Normal 0.9-3.9 [facility] Specialist Comment on above: Performed By: #### F ERR, CBCAD, FE Prof, smear, CMP #### [facility] [address] [place], [place] [id number] Lymphocytes/100 WBC (Bld) 42.3 % Normal [facility] Specialist Comment on above: Performed By: #### F ERR, CBCAD, FE Prof, smear, CMP #### [facility] [address] [place], [place] [id number] MCH (RBC) [Entitic mass] 20.3 pg Low 27.0-33.0 [facility] City [employer] Member Comment on above: Performed By: #### F ERR, CBCAD, FE Prof, smear, CMP #### [facility] [address] [place], [place] [id number] MCHC (RBC) [Mass/Vol] 28.2 g/dL Low 32.0-36.0 [facility] City [employer] Member Comment on above: Performed By: #### F ERR, CBCAD, FE Prof, smear, CMP #### [facility] [address] [place], [place] [id number] MCV (RBC) [Entitic vol] 72 fL Low 80-100 [facility] Specialist Comment on above: Performed By: #### F ERR, CBCAD, FE Prof, smear, CMP #### [facility] [address] [place], [place] [id number] Monocytes (Bld) [#/Vol] 0.6 10*3/uL Normal 0.2-0.9 [facility] Specialist Comment on above: Performed By: #### F ERR, CBCAD, FE Prof, smear, CMP #### [facility] [address] [place] [id number] Monocytes/100 WBC (Bld) 11.4 % Normal [facility] Specialist Comment on above: Performed By: #### F ERR, CBCAD, FE Prof, smear, CMP #### [facility] [address] [facility] [place] [id number] Neutrophils (Bld) [#/Vol] 2.1 10*3/uL Normal 1.5-7.8 [facility] Specialist Comment on above: Performed By: #### F ERR, CBCAD, FE Prof, smear, CMP #### [facility] [address] [place], [place] [id number] Neutrophils/100 WBC (Bld) 42.9 % Normal [facility] Specialist Comment on above: Performed By: #### F ERR, CBCAD, FE Prof, smear, CMP #### [facility] [address] [place], [place] [id number] Platelet mean volume (Bld) [Entitic vol] 10.10 fL Normal 7.50-12.50 [facility] Comment on above: Performed By: #### F ERR, CBCAD, FE Prof, smear, CMP #### [facility] [address] [facility] [place] [id number] Platelets (Bld) [#/Vol] 368 10*3/uL Normal 140-400 [facility] Specialist Comment on above: Performed By: #### F ERR, CBCAD, FE Prof, smear, CMP #### [facility] [address] [facility] [place] [id number] RBC (Bld) [#/Vol] 4.82 10*6/uL Normal 3.90-5.20 [place] [employer] Member Comment on above: Performed By: #### F ERR, CBCAD, FE Prof, smear, CMP #### [facility] [address] [place], [place] [id number] RDW-SD 43.4 fL Normal 37.0-50.0 [facility] Specialist Comment on above: Performed By: #### F ERR, CBCAD, FE Prof, smear, CMP #### [facility] [address] [place], [place] [id number] REFLEX Smear Review Normal [facility] Specialist Comment on above: Performed By: #### F ERR, CBCAD, FE Prof, smear, CMP #### [facility] [address] [place], [place] [id number] WBC (Bld) [#/Vol] 4.9 10*3/uL Normal 3.8-11.0 [facility] City Council Member Comment on above: Performed By: #### F ERR, CBCAD, FE Prof, smear, CMP #### [facility] [address] [place], [place] [id number] Comprehensive Metabolic Pane celestino 07-12-2021 Albumin [Mass/Vol] 4.5 g/dL Normal 3.6-5.1 [facility] City [employer] Member Comment on above: Performed By: #### F ERR, CBCAD, FE Prof, smear, CMP #### [facility] [address] [place], [place] [id number] Albumin/Globulin [Mass ratio] 1.7 {ratio} Normal 1.0-2.5 [facility] City [employer] Member Comment on above: Performed By: #### F ERR, CBCAD, FE Prof, smear, CMP #### [facility] [address] [place], [place] [id number] ALP [Catalytic activity/Vol] 80 U/L Normal 35-119 [facility] City [employer] Member Comment on above: Performed By: #### F ERR, CBCAD, FE Prof, smear, CMP #### [facility] [address] [place], [place] [id number] ALT [Catalytic activity/Vol] 12 U/L Normal 6-33 [facility] [employer] Member Comment on above: Result Comment: 03/29 Female reference range changed. Performed By: #### F ERR, CBCAD, FE Prof, smear, CMP #### [facility] [address] [place], [place] [id number] Anion gap [Moles/Vol] 18 mmol/L Normal 12-20 [facility] Comment on above: Result Comment: Rach ctive 05/04/2019 reference range changed. Performed By: #### F ERR, CBCAD, FE Prof, smear, CMP #### [facility] [address] [place], [place] [id number] AST [Catalytic activity/Vol] 20 U/L Normal 9-34 [facility] Comment on above: Performed By: #### F ERR, CBCAD, FE Prof, smear, CMP #### [facility] [address] [place], [place] [id number] BUN/CREA 19 Ratio Normal 6-22 [facility] Comment on above: Performed By: #### F ERR, CBCAD, FE Prof, smear, CMP #### [facility] [address] [place], [place] [id number] Calcium [Mass/Vol] 8.8 mg/dL Normal 8.6-10.2 [facility] Comment on above: Performed By: #### F ERR, CBCAD, FE Prof, smear, CMP #### [facility] [address] [place], [place] [id number] Chloride [Moles/Vol] 104 mmol/L Normal 98-107 [facility] Comment on above: Performed By: #### F ERR, CBCAD, FE Prof, smear, CMP #### [facility] [address] [place], [place] [id number] CO2 [Moles/Vol] 22 mmol/L Normal 20-31 [facility] Comment on above: Performed By: #### F ERR, CBCAD, FE Prof, smear, CMP #### [facility] [address] [place], [place] [id number] Creatinine [Mass/Vol] 0.6 mg/dL Normal 0.6-1.4 [facility] Comment on above: Performed By: #### F ERR, CBCAD, FE Prof, smear, CMP #### [facility] [address] [facility] [place] [id number] eGFRAA 155 mL/min/1.73m2 Normal >60 [facility] City Council Member Comment on above: Performed By: #### F ERR, CBCAD, FE Prof, smear, CMP #### [facility] [address] [place], [place] [id number] eGFRNAA 128 mL/min/1.73m2 Normal >60 [facility] City Council Member Comment on above: Performed By: #### F ERR, CBCAD, FE Prof, smear, CMP #### [facility] [address] [place], [place] [id number] Globulin (S) [Mass/Vol] 2.6 g/dL Normal 1.9-3.7 [facility] City [employer] Member Comment on above: Performed By: #### F ERR, CBCAD, FE Prof, smear, CMP #### [facility] [address] [place], [place] [id number] Glucose [Mass/Vol] 80 mg/dL Normal 65-99 [facility] City [employer] Member Comment on above: Result Comment: For FASTING Glucose --- ADA reference ranges: Normal 65-99 mg/dl Prediabetes 100-125 Diabetes >/= 126 Performed By: #### F ERR, CBCAD, FE Prof, smear, CMP #### [facility] [address] [place], [place] [id number] Potassium [Moles/Vol] 4.2 mmol/L Normal 3.5-5.5 [facility] City [employer] Member Comment on above: Performed By: #### F ERR, CBCAD, FE Prof, smear, CMP #### [facility] [address] [place], [place] [id number] Protein [Mass/Vol] 7.1 g/dL Normal 6.1-8.1 [facility] rn [place] City Council Member Comment on above: Performed By: #### F ERR, CBCAD, FE Prof, smear, CMP #### [facility] [address] [place], [place] [id number] Sodium [Moles/Vol] 139 mmol/L Normal 135-146 Yg rn [place] [employer] Member Comment on above: Performed By: #### F ERR, CBCAD, FE Prof, smear, CMP #### [facility] [address] [place], [place] [id number] TBIL <0.3 Normal [place] City [employer] Member Comment on above: Performed By: #### F ERR, CBCAD, FE Prof, smear, CMP #### [facility] [address] [place], [place] [id number] Urea nitrogen [Mass/Vol] 11 mg/dL Normal 7-25 [facility] Specialist Comment on above: Performed By: #### F ERR, CBCAD, FE Prof, smear, CMP #### [facility] [address] [place], [place] [id number] Ferritinon 07-12-2021 FERR 12.1 ng/mL Low 15.0-150.0 [facility] Specialist Comment on above: Performed By: #### F ERR, CBCAD, FE Prof, smear, CMP #### [facility] [address] [place], [place] [id number] Iron Profileon 07-12-2021 %FESAT 6 % Low 11-50 [facility] Specialist Comment on above: Performed By: #### F ERR, CBCAD, FE Prof, smear, CMP #### [facility] [address] [place], [place] [id number] FE 25 ug/dL Low 40-190 [facility] Specialist Comment on above: Result Comment: Refe rence range change 03/15/2017. Prior reference range F 37-145 ug/dL, M 59-158 ug/dL. Performed By: #### F ERR, CBCAD, FE Prof, smear, CMP #### [facility] [address] [place], [place] [id number] TIBC 441 ug/dL Normal 250-450 [facility] Specialist Comment on above: Performed By: #### F ERR, CBCAD, FE Prof, smear, CMP #### [facility] [address] [place], [place] [id number] UIBC 416 ug/dL High 112-347 [facility] Specialist Comment on above: Performed By: #### F ERR, CBCAD, FE Prof, smear, CMP #### [facility] [address] [place], [place] [id number] Smear Reviewon 07-12-2021 PLT EST Adequate Normal [facility] Specialist Comment on above: Performed By: #### F ERR, CBCAD, FE Prof, smear, CMP #### [facility] [address] [place], [place] [id number] RBC morphology finding Nom (Bld) RBC morphology review confirms RBC indices Normal [facility] City [employer] Member Comment on above: Performed By: #### F ERR, CBCAD, FE Prof, smear, CMP #### [facility] [address] [place], [place] [id number] CBC AUTO DIFFon 05-13-2021 BASO # 0.0 103/ul Normal 0.0-0.1 [facility] Comment on above: Performed By: #### C BC #### [facility] [address] [place] [address] Dr. Kerrie Russell Basophils/100 WBC (Bld) 0.1 % Critically low 0.2-2.0 [facility] Comment on above: Performed By: #### C BC #### [facility] [address] [place] [address] Dr. Kerrie Russell EO # 0.0 103/ul Normal 0.0-0.7 [facility] Comment on above: Performed By: #### C BC #### [facility] [address] [place] [address] [address] Kerrie Russell Eosinophils/100 WBC (Bld) 0.0 % Critically low 0.9-7.0 [facility] Comment on above: Performed By: #### C BC #### [facility] [address] [place] [address] Dr. Kerrie Russell Erythrocyte distribution width (RBC) [Ratio] 15.0 % Normal 11.0-15.0 [facility] Comment on above: Performed By: #### C BC #### [facility] [address] [place] [address] [address] Kerrie Russell Hematocrit (Bld) [Volume fraction] 25.2 % Critically low 36.0-48.0 [facility] Comment on above: Performed By: #### C BC #### [facility] [address] [place] [address] [address] Kerrie Russell Hemoglobin (Bld) [Mass/Vol] 7.6 g/dL Critically low 12.0-16.0 [facility] Comment on above: Result Comment: Post delivery Performed By: #### C BC #### [facility] [address] [place] [address] Dr. Kerrie Russell IG # 0.08 10e3/ul Critically high 0.00-0.03 [facility] Comment on above: Performed By: #### C BC #### [facility] [address] [place] [address] Dr. Kerrie Russell IG % 1.0 % Critically high 0.0-0.5 [facility] Comment on above: Performed By: #### C BC #### [facility] [address] [place] [address] Dr. Kerrie Russell LYMPH # 2.2 103/ul Normal 1.2-3.8 [facility] Comment on above: Performed By: #### C BC #### [facility] [address] [place] [address] Dr. Kerrie Russell Lymphocytes/100 WBC (Bld) 26.5 % Normal 20.5-60.0 [facility] Comment on above: Performed By: #### C BC #### [facility] [address] [place] [address] Dr. Kerrie Russell MANUAL DIFF REQ NO Normal [facility] Comment on above: Performed By: #### C BC #### [facility] [address] [place] [address] Dr. Kerrie Russell MCH (RBC) [Entitic mass] 21.7 pg Critically low 26.7-34.0 [facility] Comment on above: Performed By: #### C BC #### [facility] [address] [place] [address] Dr. Kerrie Russell MCHC (RBC) [Mass/Vol] 30.2 g/dL Normal 29.9-35.2 [facility] Comment on above: Performed By: #### C BC #### [facility] [address] [place] [address] Dr. Kerrie Russell MCV (RBC) [Entitic vol] 72.0 fL Critically low 81.0-99.0 [facility] Comment on above: Performed By: #### C BC #### [facility] [address] [place] [address] Dr. Kerrie Russell MONO # 0.7 103/ul Normal 0.3-0.8 [facility] Comment on above: Performed By: #### C BC #### [facility] [address] [place] [address] [address] Kerrie Russell Monocytes/100 WBC (Bld) 9.1 % Normal 1.7-12.0 [facility] Comment on above: Performed By: #### C BC #### [facility] [address] [place] [address] Dr. Kerrie Russell NEUT # 5.1 103/ul Normal 1.4-6.5 [facility] Comment on above: Performed By: #### C BC #### [facility] [address] [place] [address] Dr. Kerrie Russell Neutrophils/100 WBC (Bld) 63.3 % Normal 43.0-75.0 [facility] Comment on above: Performed By: #### C BC #### [facility] [address] [place] [address] Dr. Kerrie Russell Platelet mean volume (Bld) [Entitic vol] 10.1 fL Normal 9.5-13.5 [facility] Comment on above: Performed By: #### C BC #### [facility] [address] [place] [address] Dr. Kerrie Russell PLT 181 103/ul Normal 150-450 [facility] Comment on above: Performed By: #### C BC #### [facility] [address] [place] [address] Dr. Kerrie Russell RBC 3.50 106/ul Critically low 4.20-5.40 [facility] Comment on above: Performed By: #### C BC #### [facility] [address] [place] [address] Dr. Kerrie Russell WBC 8.1 103/ul Normal 4.0-11.0 [facility] Comment on above: Performed By: #### C BC #### [facility] [address] [place] [address] Dr. Kerrie Russell CBC AUTO DIFFon 05-11-2021 BASO # 0.0 103/ul Normal 0.0-0.1 [facility] Comment on above: Performed By: #### C VDTBH #### [facility] [address] [place] [address] Dr. Kerrie Russell Basophils/100 WBC (Bld) 0.4 % Normal 0.2-2.0 [facility] Comment on above: Performed By: #### C VDTBH #### [facility] [address] [place] [address] Dr. Kerrie Russell EO # 0.0 103/ul Normal 0.0-0.7 [facility] Comment on above: Performed By: #### C VDTBH #### [facility] [address] [place] [address] Dr. Krerie Russell Eosinophils/100 WBC (Bld) 0.3 % Critically low 0.9-7.0 [facility] Comment on above: Performed By: #### C VDTBH #### [facility] [address] [place] [address] Dr. Kerrie Russell Erythrocyte distribution width (RBC) [Ratio] 14.8 % Normal 11.0-15.0 [facility] Comment on above: Performed By: #### C VDTBH #### [facility] [address] [place] [address] Dr. Kerrie Russell Hematocrit (Bld) [Volume fraction] 31.2 % Critically low 36.0-48.0 [facility] Comment on above: Performed By: #### C VDTBH #### [facility] [address] [place] [address] Dr. Kerrie Russell Hemoglobin (Bld) [Mass/Vol] 9.6 g/dL Critically low 12.0-16.0 [facility] Comment on above: Performed By: #### C VDTBH #### [facility] [address] [place] [address] Dr. Kerrie Russell IG # 0.07 10e3/ul Critically high 0.00-0.03 [facility] Comment on above: Performed By: #### C VDTBH #### [facility] [address] [place] [address] [address] Kerrie Russell IG % 1.0 % Critically high 0.0-0.5 [facility] Comment on above: Performed By: #### C VDTBH #### [facility] [address] [place] [address] [address] Kerrie Russell LYMPH # 1.5 103/ul Normal 1.2-3.8 [facility] Comment on above: Performed By: #### C VDTBH #### [facility] [address] [place] [address] Dr. Kerrie Russell Lymphocytes/100 WBC (Bld) 21.7 % Normal 20.5-60.0 [facility] Comment on above: Performed By: #### C VDTBH #### [facility] [address] [place] [address] Dr. Kerrie Russell MANUAL DIFF REQ NO Normal [facility] Comment on above: Performed By: #### C VDTBH #### [facility] [address] [place] [address] Dr. Kerrie Russell MCH (RBC) [Entitic mass] 21.8 pg Critically low 26.7-34.0 [facility] Comment on above: Performed By: #### C VDTBH #### [facility] [address] [place] [address] Dr. Kerrie Russell MCHC (RBC) [Mass/Vol] 30.8 g/dL Normal 29.9-35.2 [facility] Comment on above: Performed By: #### C VDTBH #### [facility] [address] [place] [address] Dr. Kerrie Russell MCV (RBC) [Entitic vol] 70.7 fL Critically low 81.0-99.0 [facility] Comment on above: Performed By: #### C VDTBH #### [facility] [address] [place] [address] Dr. Kerrie Russell MONO # 0.7 103/ul Normal 0.3-0.8 [facility] Comment on above: Performed By: #### C VDTBH #### [facility] [address] [place] [address] Dr. Kerrie Russell Monocytes/100 WBC (Bld) 9.7 % Normal 1.7-12.0 [facility] Comment on above: Performed By: #### C VDTBH #### [facility] [address] [place] [address] Dr. Kerrie Russell NEUT # 4.7 103/ul Normal 1.4-6.5 [facility] Comment on above: Performed By: #### C VDTBH #### [facility] [address] [place] [address] Dr. Kerrie Russell Neutrophils/100 WBC (Bld) 66.9 % Normal 43.0-75.0 [facility] Comment on above: Performed By: #### C VDTBH #### [facility] [address] [place] [address] Dr. Kerrie Russell Platelet mean volume (Bld) [Entitic vol] 10.0 fL Normal 9.5-13.5 [facility] Comment on above: Performed By: #### C VDTBH #### [facility] [address] [place] [address] Dr. Kerrie Russell PLT 272 103/ul Normal 150-450 [facility] Comment on above: Performed By: #### C VDTBH #### [facility] [address] [place] [address] Dr. Kerrie Russell RBC 4.41 106/ul Normal 4.20-5.40 [facility] Comment on above: Performed By: #### C VDTBH #### [facility] [address] [place] [address] Dr. Kerrie Russell WBC 7.0 103/ul Normal 4.0-11.0 [facility] Comment on above: Performed By: #### C VDTBH #### [facility] [address] [place] [address] Dr. Kerrie Russell Covid-19 PCR (CVDTB)on 04-29 SARS-CoV-2 (COVID-19) RNA DEZ+probe Ql (Unsp spec) Detected Critically abnormal NOT DETECTED [facility] Comment on above: Result Comment: This test is not yet approved or cleared by the [place] FDA. When there are no FDA-approved or cleared tests available, and other criteria are met, FDA can make tests available under an emergency access mechanism called an Emergency Use Authorization (EUA). The EUA for this test is supported by the Analytical Research Program Manager of Health and Human Service's declaration that [...] used). Performed By: #### C VDTBH #### [facility] [address] [place] [address] Dr. Kerrie Russell DRUG SCREEN RAPID (URINE)on 05-11-2021 AMP Negative Normal NEGATIVE [facility] Comment on above: Performed By: #### C VDTBH #### [facility] [address] [place] [address] Dr. Kerrie Russell BAR Negative Normal NEGATIVE [facility] Comment on above: Performed By: #### C VDTBH #### [facility] [address] [place] [address] Dr. Kerrie Russell BUP Negative Normal NEGATIVE The [facility] Comment on above: Performed By: #### C VDTBH #### [facility] [address] [place] [address] Dr. Kerrie Russell BZO Negative Normal NEGATIVE [facility] Comment on above: Performed By: #### C VDTBH #### [facility] [address] [address] [address] Kerrie Russell ESTRELLA Negative Normal NEGATIVE [facility] Comment on above: Performed By: #### C VDTBH #### [facility] [address] [place] [address] Dr. Kerrie Russell CUT-OFFS SEE BELOW Normal [facility] Comment on above: Result Comment: AMP [...] ng/mL Performed By: #### C VDTBH #### [facility] [address] [place] [address] Dr. Kerrie Russell DRUG CUT HEADER DRUG CLASS TEST SYSTEM CUT-OFF CONCENTRATIONS ARE FOLLOWS: Normal [facility] Comment on above: Performed By: #### C VDTBH #### [facility] [address] [place] [address] Dr. Kerrie Russell mAMP Negative Normal NEGATIVE [facility] Comment on above: Performed By: #### C VDTBH #### [facility] [address] [place] [address] Dr. Kerrie Russell MTD Negative Normal NEGATIVE [facility] Comment on above: Performed By: #### C VDTBH #### [facility] [address] [place] [address] Dr. Kerrie Russell OPI Negative Normal NEGATIVE [facility] Comment on above: Performed By: #### C VDTBH #### [facility] [address] [place] [address] Dr. Kerrie Russell OXY Negative Normal NEGATIVE [facility] Comment on above: Performed By: #### C VDTBH #### [facility] [address] [place] [address] Dr. Kerrie Russell PCP Negative Normal NEGATIVE [facility] Comment on above: Performed By: #### C VDTBH #### [facility] [address] [place] [address] Dr. Kerrie Russell PPX Negative Normal NEGATIVE [facility] Comment on above: Performed By: #### C VDTBH #### [facility] [address] [address] [address] Kerrie Russell TCA Negative Normal NEGATIVE [facility] Comment on above: Performed By: #### C VDTBH #### [facility] [address] [place] [address] Dr. Kerrie Russell THC Negative Normal NEGATIVE [facility] Comment on above: Performed By: #### C VDTBH #### [facility] [address] [address] [address] Kerrie Russell TYPE AND SCREENon 05-11-2021 TYPE AND SCREEN Negative Normal [facility] Comment on above: Performed By: #### P HOS, MG, CMP #### [facility] [address] [place] [address] Dr. Kerrie Russell Complete Blood Count Auto Di ffon 07-25-2020 Basophils (Bld) [#/Vol] 0.1 10*3/uL Normal 0.0-0.[address] [facility] Comment on above: Result Comment: PERF ORMED BY: [place] [address] PATHOLOGIST FILENET ARCHITECT TOLU MANUEL M.D. Performed By: #### F E PRO, [id number], CMP, MG, [id number], PHOS, CBC #### [facility] [address] [place] [address] #### VITB1 #### [facility] , Basophils/100 WBC (Bld) 0.7 % Normal . [facility] Comment on above: Performed By: #### F E PRO, [id number], CMP, MG, [id number], PHOS, CBC #### [facility] [address] [place] [address] #### VITB1 #### [facility] , Eosinophils (Bld) [#/Vol] 0.1 10*3/uL Normal 0.0-0.[address] [facility] Comment on above: Performed By: #### F E PRO, [id number], CMP, MG, [id number], PHOS, CBC #### [address] #### VITB1 #### [facility] , Eosinophils/100 WBC (Bld) 1.6 % Normal . [facility] Comment on above: Performed By: #### F E PRO, [id number], CMP, MG, [id number], PHOS, CBC #### [address] #### VITB1 #### [facility] , Erythrocyte distribution width (RBC) [Ratio] 13.0 % Normal 11.9-15.[address] [facility] Comment on above: Performed By: #### F E PRO, [id number], CMP, MG, [id number], PHOS, CBC #### [address] #### VITB1 #### [facility] , Hematocrit (Bld) [Volume fraction] 38.3 % Normal 34.0-46.[address] [facility] Comment on above: Performed By: #### F E PRO, [id number], CMP, MG, [id number], PHOS, CBC #### [address] #### VITB1 #### [facility] , Hemoglobin (Bld) [Mass/Vol] 12.9 g/dL Normal 11.8-15.[address] [facility] Comment on above: Performed By: #### F E PRO, [id number], CMP, MG, [id number], PHOS, CBC #### [place] [address] [place] #### VITB1 #### [facility] , Lymphocytes (Bld) [#/Vol] 4.6 10*3/uL Normal 1.00-4.[address] [facility] Comment on above: Performed By: #### F E PRO, [id number], CMP, MG, [id number], PHOS, CBC #### [address] #### VITB1 #### [facility] , Lymphocytes/100 WBC (Bld) 49.5 % Normal . [facility] Comment on above: Performed By: #### F E PRO, [id number], CMP, MG, [id number], PHOS, CBC #### [address] #### VITB1 #### [facility] , MCH (RBC) [Entitic mass] 28.6 pg Normal 24.7-34.[address] [facility] Comment on above: Performed By: #### F E PRO, [id number], CMP, MG, [id number], PHOS, CBC #### [address] #### VITB1 #### [facility] , MCV (RBC) [Entitic vol] 84.5 fL Normal 80-[address] [facility] Comment on above: Performed By: #### F E PRO, [id number], CMP, MG, [id number], PHOS, CBC #### [address] #### VITB1 #### [facility] , Mean Corpuscular HGB Conc 33.8 g/dL Normal 32.0-35.[address] [facility] Comment on above: Performed By: #### F E PRO, [id number], CMP, MG, [id number], PHOS, CBC #### [address] #### VITB1 #### [facility] , Monocytes (Bld) [#/Vol] 0.7 10*3/uL Normal 0.0-0.[address] [facility] Comment on above: Performed By: #### F E PRO, [id number], CMP, MG, [id number], PHOS, CBC #### [address] #### VITB1 #### [facility] , Monocytes/100 WBC (Bld) 7.5 % Normal . [facility] Comment on above: Performed By: #### F E PRO, [id number], CMP, MG, [id number], PHOS, CBC #### [address] #### VITB1 #### [facility] , Neutrophils (Bld) [#/Vol] 3.8 10*3/uL Normal 1.8-7.[address] [facility] Comment on above: Performed By: #### F E PRO, [id number], CMP, MG, [id number], PHOS, CBC #### [address] #### VITB1 #### [facility] , Neutrophils/100 WBC (Bld) 40.7 % Normal . [facility] Comment on above: Performed By: #### F E PRO, [id number], CMP, MG, [id number], PHOS, CBC #### [address] #### VITB1 #### [facility] , Nucleated RBC/100 WBC (Bld) [Ratio] 0.4 % Normal 0-0.[address] [facility] Comment on above: Performed By: #### F E PRO, [id number], CMP, MG, [id number], PHOS, CBC #### [facility] [address] [place] [address] [place] #### VITB1 #### [facility] , Platelet mean volume (Bld) [Entitic vol] 7.8 fL Normal 6.3-10.[address] [facility] Comment on above: Performed By: #### F E PRO, [id number], CMP, MG, [id number], PHOS, CBC #### [facility] [address] [place] [address] [place] #### VITB1 #### [facility] , Platelets (Bld) [#/Vol] 354 10*3/uL Normal 150-[address] [facility] Comment on above: Performed By: #### F E PRO, [id number], CMP, MG, [id number], PHOS, CBC #### [facility] [address] [place] [address] #### VITB1 #### [facility] , RBC (Bld) [#/Vol] 4.53 10*6/uL Normal 3.60-5.00 [facility] Comment on above: Performed By: #### F E PRO, [id number], CMP, MG, [id number], PHOS, CBC #### [address] #### VITB1 #### [facility] , WBC (Bld) [#/Vol] 9.3 10*3/uL Normal 4.5-11.0 [facility] Comment on above: Performed By: #### F E PRO, [id number], CMP, MG, [id number], PHOS, CBC #### [place] [address] [place] #### VITB1 #### [facility] , Comprehensive Metabolic Pane celestino 07-25-2020 Albumin [Mass/Vol] 4.0 g/dL Normal 3.2-5.5 [facility] Comment on above: Performed By: #### F E PRO, [id number], CMP, MG, [id number], PHOS, CBC #### [facility] [address] [place] [address] #### VITB1 #### [facility] , Albumin/Globulin [Mass ratio] 1.4 {ratio} Normal [facility] Comment on above: Performed By: #### F E PRO, [id number], CMP, MG, [id number], PHOS, CBC #### [facility] [address] [place] [address] #### VITB1 #### [facility] , ALP [Catalytic activity/Vol] 58 U/L Normal 32-[address] [facility] Comment on above: Performed By: #### F E PRO, [id number], CMP, MG, [id number], PHOS, CBC #### [facility] [address] [place] [address] #### VITB1 #### [facility] , ALT [Catalytic activity/Vol] 12 U/L Normal 10-[address] [facility] Comment on above: Performed By: #### F E PRO, [id number], CMP, MG, [id number], PHOS, CBC #### [facility] [address] [place] [address] #### VITB1 #### [facility] , AST [Catalytic activity/Vol] 19 U/L Normal 10-[address] [facility] Comment on above: Performed By: #### F E PRO, [id number], CMP, MG, [id number], PHOS, CBC #### [facility] [address] [place] [address] #### VITB1 #### [facility] , Bilirubin [Mass/Vol] 0.5 mg/dL Normal 0.3-1.2 [facility] Comment on above: Performed By: #### F E PRO, [id number], CMP, MG, [id number], PHOS, CBC #### [facility] [address] [place] [address] [place] #### VITB1 #### [facility] , Calcium [Mass/Vol] 9.0 mg/dL Normal 8.2-10.2 [facility] Comment on above: Performed By: #### F E PRO, [id number], CMP, MG, [id number], PHOS, CBC #### [facility] [address] [place] [address] #### VITB1 #### [facility] , Chloride [Moles/Vol] 100 mmol/L Normal 95-114 [facility] Comment on above: Performed By: #### F E PRO, [id number], CMP, MG, [id number], PHOS, CBC #### [address] #### VITB1 #### [facility] , CO2 [Moles/Vol] 27.3 mmol/L Normal 22.0-30.0 [facility] Comment on above: Performed By: #### F E PRO, [id number], CMP, MG, [id number], PHOS, CBC #### [facility] [address] [place] [address] #### VITB1 #### [facility] , Creatinine [Mass/Vol] 0.59 mg/dL Normal 0.44-1.[address] [facility] Comment on above: Performed By: #### F E PRO, [id number], CMP, MG, [id number], PHOS, CBC #### [facility] [address] [place] [address] #### VITB1 #### [facility] , Estimated GFR ( Monica > [address] [facility] Comment on above: Result Comment: GFR estimated reference range: According to KDOQI guidelines, <60 ml/min/1.73m2 is sufficient to diagnose a patient with chronic kidney disease. Performed By: #### F E PRO, [id number], CMP, MG, [id number], PHOS, CBC #### [facility] [address] [place] [address] [place] #### VITB1 #### [facility] , Estimated GFR (Non- Am > [address] [facility] Comment on above: Performed By: #### F E PRO, [id number], CMP, MG, [id number], PHOS, CBC #### [facility] [address] [place] [address] [place] #### VITB1 #### [facility] , Globulin (S) [Mass/Vol] 2.8 g/dL Normal [facility] Comment on above: Performed By: #### F E PRO, [id number], CMP, MG, [id number], PHOS, CBC #### [facility] [address] [place] [address] [place] #### VITB1 #### [facility] , Glucose [Mass/Vol] 118 mg/dL High 70-100 [facility] Comment on above: Result Comment: [place] Glucose Reference Range is dependent on time and content of last meal. Glucose of more than 200 mg/dL in a nonstressed, ambulatory subject supports the diagnosis of Diabetes Mellitus. ADA recommended reference range Performed By: #### F E PRO, [id number], CMP, MG, [id number], PHOS, CBC #### [facility] [address] [place] [address] [place] #### VITB1 #### [facility] , Potassium [Moles/Vol] 3.6 mmol/L Normal 3.5-5.[address] [facility] Comment on above: Performed By: #### F E PRO, [id number], CMP, MG, [id number], PHOS, CBC #### [facility] [address] [place] [address] [place] #### VITB1 #### [facility] , Protein [Mass/Vol] 6.8 g/dL Normal 6.1-7.9 [facility] Comment on above: Performed By: #### F E PRO, [id number], CMP, MG, [id number], PHOS, CBC #### [facility] [address] [place] [address] [place] #### VITB1 #### [facility] , Sodium [Moles/Vol] 136 mmol/L Normal 136-146 [facility] Comment on above: Performed By: #### F E PRO, [id number], CMP, MG, [id number], PHOS, CBC #### [facility] [address] [place] [address] #### VITB1 #### [facility] , Urea nitrogen [Mass/Vol] 10 mg/dL Normal 9-[address] [facility] Comment on above: Performed By: #### F E PRO, [id number], CMP, MG, [id number], PHOS, CBC #### [facility] [address] [place] [address] #### VITB1 #### [facility] , FE PROon 07-25-2020 % Iron Saturation 15.0 % Low 20-50 [facility] Comment on above: Performed By: #### F E PRO, [id number], CMP, MG, [id number], PHOS, CBC #### [facility] [address] [place] [address] #### VITB1 #### [facility] , Ferritin [Mass/Vol] 8.8 ng/mL Low 11-306.8 [facility] Comment on above: Performed By: #### F E PRO, [id number], CMP, MG, [id number], PHOS, CBC #### [facility] [address] [place] [address] [place] #### VITB1 #### [facility] , Iron [Mass/Vol] 68 ug/dL Normal 40-[address] [facility] Comment on above: Performed By: #### F E PRO, [id number], CMP, MG, [id number], PHOS, CBC #### [facility] [address] [place] [address] [place] #### VITB1 #### [facility] , Total Iron Binding Capacity 441 ug/dL Normal 255-[address] [facility] Comment on above: Performed By: #### F E PRO, [id number], CMP, MG, [id number], PHOS, CBC #### [facility] [address] [place] [address] [place] #### VITB1 #### [facility] , Transferrin [Mass/Vol] 315 mg/dL Normal 180-[address] [facility] Comment on above: Performed By: #### F E PRO, [id number], CMP, MG, [id number], PHOS, CBC #### [facility] [address] [place] [address] [place] #### VITB1 #### [facility] , Magnesiumon 07-25-2020 Magnesium [Mass/Vol] 1.9 mg/dL Normal 1.6-2.6 [facility] Comment on above: Performed By: #### F E PRO, [id number], CMP, MG, [id number], PHOS, CBC #### [facility] [address] [place] [address] [place] #### VITB1 #### [facility] , Phosphoruson 07-25-2020 Phosphate [Mass/Vol] 3.8 mg/dL Normal 2.5-4.6 [facility] Comment on above: Performed By: #### F E PRO, [id number], CMP, MG, [id number], PHOS, CBC #### [facility] [address] [place] [address] [place] #### VITB1 #### [facility] , Vit. B12/Folate Profileon Cobalamin (Vitamin B12) [Mass/Vol] 613 pg/mL Normal 180-[address] [facility] Comment on above: Performed By: #### F E PRO, [id number], CMP, MG, [id number], PHOS, CBC #### [facility] [address] [place] [address] [place] #### VITB1 #### [facility] , Folate 21.8 ng/mL Normal >5.[address] [facility] Comment on above: Result Comment: Hiral te reference range: >5.9 ng/ml The WHO technical consultation on folate and vitamin b12 deficiencies has determined that folate concentrations less than 4 ng/ml are considered deficient. Performed By: #### F E PRO, [id number], CMP, MG, [id number], PHOS, CBC #### [facility] [address] #### VITB1 #### [facility] , Vitamin B1 (Thiamine) Bloodo n 07-25-2020 Vitamin B1 (Thiamine) Blood 120.7 Normal 66.5-200.[address] [facility] Comment on above: Order Comment: Speci men Comment: Test(s) 983057-Yef. B1, Whole Blood Specimen Comment: was developed and its performance characteristics Specimen Comment: determined by [facility]. It has not been cleared or approved Specimen Comment: by the Food and Drug Administration. Result Comment: Perf ormed at: [facility] - [facility] [address] [id number] Multiple Cut Off Saw Operator: Jaren Bishop MD, Phone: [phone] PERFORMED BY: [place] [address] PATHOLOGIST FILENET ARCHITECT TOLU MANUEL M.D. Performed By: #### F E PRO, [id number], CMP, MG, [id number], PHOS, CBC #### [facility] [address] [place] [address] #### VITB1 #### [facility] , Vitamin D 25 Hydroxy Totalon 07-25-2020 Vitamin D 25 Hydroxy Total 33.5 ng/mL Normal 30-[address] [facility] Comment on above: Result Comment: LISANDRO MIN D STATUS 25(OH)VITAMIN D RANGE (ng/mL) Deficient <20 Insufficient 20 to <30 Sufficient 30 to 100 Reference: Sejal MF,Shraddha GANDHI, Filiberto GREENBERG, et al. Evaluation,treatment, and prevention of vitamin D deficiency; an Endocrine Society clinical practice guideline. JCEM. 2010; 96(7):1911-30. PERFORMED BY: [facility] [address] [facility] [place] [place] [address] PATHOLOGIST FILENET ARCHITECT TOLU MANUEL M.D. Performed By: #### F E PRO, [id number], CMP, MG, [id number], PHOS, CBC #### [facility] [address] #### VITB1 #### [facility] , COVID-19 [...] its performance Sharda Disclaimer characteristic determined by [employer] and Sharda Disclaimer validated at [facility]. This Sharda Disclaimer test has not [...] is terminated or revoked sooner. PERFORMED BY: [place] [address] PATHOLOGIST FILENET ARCHITECT TOLU MANUEL M.D. Normal [facility] Comment on above: Performed By: #### C OVID-19 SHARDA, SOFIANEG #### [address] Sharda Ag Negativeon 07-21-19 Sharda Ag Negative Negative Normal Negative [facility] Comment on above: Result Comment: This is a duplicate Sharda SARS Antigen (SIERRA) result to be used for statistical tracking purpose only. PERFORMED BY: [place] [address] PATHOLOGIST FILENET ARCHITECT TOLU MANUEL M.D. Performed By: #### C OVID-19 SHARDA, SOFIANEG #### [address] Vitamin B1 (Thiamine) Whl Bl ood LCon 10-05-2018 Vit B1 Whl Bld LC 154.0 nmol/L 66.5-200.0 [facility] Comment on above: Result Comment: This test was developed and its performance characteristics determined by [facility]. It has not been cleared or approved by the Food and Drug Administration. 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 ADMIT [...] Jordyn Martinez Date Saved: 10/02/2018 03:39 pm [facility] .Auto Diff 1on 10-01-2018 Auto Baso % 0.3 % Normal 0.2-2.0 [facility] Comment on above: Performed By: #### 9 891631, [id number], 4716696, [id number], 2531071, 210058717, 3225227, 0921567, 7868289, 5021439 #### [facility] (DEFAULT) [address] [place] [address] Auto [place] % 6 % Normal 1-12 [facility] Comment on above: Performed By: #### 9 070357, 20575386, 9577447, [id number], 1721958, 937226472, 4184899, 0569393, 1544349, 6249847 #### [facility] (DEFAULT) [address] [place] [address] Auto Neut % 60 % Normal 44-88 [facility] Comment on above: Performed By: #### 9 101590, 47068788, 6991327, [id number], 9505237, 218011568, 9106141, 0074828, 2315564, 4066374 #### [facility] (DEFAULT) [address] [place] [address] Baso Abs# 0.0 x10 Normal 0.0-0.2 [facility] Comment on above: Performed By: #### 9 024393, 83387821, 0748271, [id number], 6835187, 711398612, 4023605, 4907485, 9932180, 4417102 #### [facility] (DEFAULT) [address] [place] [address] Eos Abs# 0.1 x10 Normal 0.0-0.4 [facility] Comment on above: Performed By: #### 9 056489, 94630117, 6174003, [id number], 8758783, 011523852, 6595346, 8155435, 9982945, 8850507 #### [facility] (DEFAULT) [address] [place] [address] Eosinophils/100 WBC (Bld) 0.9 % Normal 0.9-4.0 [facility] Comment on above: Performed By: #### 9 870516, 67101987, 1432551, 4151945257, 2720978, 576352435, 6747161, 4964889, 9869411, 3589220 #### [facility] (DEFAULT) [address] [place] [address] Lymphocytes #/vol (Bld) 3.4 x10 High 1.3-2.9 [facility] Comment on above: Performed By: #### 9 141154, 30680194, 7228031, [id number], 4377398, 929543545, 1106494, 4337443, 6352925, 9318379 #### [facility] (DEFAULT) [address] [place] [address] Lymphocytes/100 WBC (Bld) 33 % Normal 14-48 [facility] Comment on above: Performed By: #### 9 376191, 06566085, 7756913, [id number], 8647525, 181895388, 5192207, 9880691, 8760574, 2825812 #### [facility] (DEFAULT) [address] [place] [address] [place] Abs# 0.6 x10 Normal 0.0-0.8 [facility] Comment on above: Performed By: #### 9 998292, 14168331, 5036434, 5758860215, 7999740, 244337541, 2374127, 7700541, 3171022, 5628549 #### [facility] (DEFAULT) [address] [place] [address] Neut Abs# 6.2 x10 Normal 1.5-9.2 [facility] Comment on above: Performed By: #### 9 085204, 46436719, 1649794, 1767546165, 4518784, 407912801, 3992430, 8003667, 6766709, 8836688 #### [facility] (DEFAULT) [address] [place] [address] CBC w/ Auto Diffon 9 Erythrocyte distribution width Ratio (RBC) 14.6 % Normal 11.5-15.0 [facility] Comment on above: Performed By: #### 9 680922, 13945960, 4007746, 8856066733, 7821180, 887805472, 9057163, 9903948, 4426585, 9215053 #### [facility] (DEFAULT) [address] [place] [address] Hematocrit Volume Fraction (Bld) 41.2 % High 33.7-40.4 [facility] Comment on above: Performed By: #### 9 081557, 80451152, 2622664, 9470905232, 4626540, 432493889, 9912913, 1493185, 2172385, 7994933 #### [facility] (DEFAULT) [address] [place] [address] Hemoglobin mass conc (Bld) 13.7 g/dL Normal 11.3-15.9 [facility] Comment on above: Performed By: #### 9 742366, 91756337, 6801409, 4094430516, 8816480, 856540526, 0750231, 1066662, 9946282, 7513061 #### [facility] (DEFAULT) [address] [place] [address] Man Diff? Auto Normal [facility] Comment on above: Performed By: #### 9 039637, 28311136, 7552296, 6981193788, 9956837, 765731177, 0954318, 4396952, 2965052, 9730365 #### [facility] (DEFAULT) [address] [place] [address] MCH Entitic mass (RBC) 28 pg Normal 24-34 [facility] Comment on above: Performed By: #### 9 331513, 72312341, 6988474, 6185896553, 4895268, 055031938, 7545013, 3068130, 0967454, 1175234 #### [facility] (DEFAULT) [address] [place] [address] MCHC mass conc (RBC) 33 g/dL Normal 26-37 [facility] Comment on above: Performed By: #### 9 632912, 04855103, 7535442, [id number], 1008376, 210875130, 1495744, 7058760, 1891538, 8844135 #### [facility] (DEFAULT) [address] [place] [address] MCV Entitic volume (RBC) 85 fL Normal 81-100 [facility] Comment on above: Performed By: #### 9 369299, 35675189, 8623882, 4890538740, 1576172, 707312139, 0425233, 8374873, 7887958, 0934489 #### [facility] (DEFAULT) [address] [place] [address] Platelet mean volume Entitic volume (Bld) 9.8 fL Normal 6.3-10.2 [facility] Comment on above: Performed By: #### 9 578338, 46908535, 7685462, 4835868233, 0968355, 743117180, 6581358, 6788653, 2336364, 9367801 #### [facility] (DEFAULT) [address] [place] [address] Platelets #/vol (Bld) 378 x10 Normal 138-427 [facility] Comment on above: Performed By: #### 9 111831, 64664456, 3688715, 1029232378, 1171335, 083464003, 1737569, 4363107, 0643927, 7310024 #### [facility] (DEFAULT) [address] [place] [address] RBC #/vol (Bld) 4.84 x10 Normal 3.70-5.30 [facility] Comment on above: Performed By: #### 9 868195, 05405321, 0490704, 5913419962, 8357625, 147244318, 1543279, 9934048, 1007923, 0208822 #### [facility] (DEFAULT) [address] [place] [address] WBC #/vol (Bld) 10.4 x10 Normal 3.5-10.5 [facility] Comment on above: Performed By: #### 9 290248, 53554243, 7647448, 3500485273, 1898418, 360700863, 8334140, 6248975, 0132599, 0840176 #### [facility] (DEFAULT) [address] [place] [address] Standardon 10-01-2018 eGFR Non AA >60 [facility] Comment on above: Performed By: #### 9 842418, 36550216, 8485760, 3248129979, 8117429, 152845986, 3365244, 1608232, 3055593, 9127313 #### [facility] (DEFAULT) [address] [place] [address] eGFR AA >60 [facility] Comment on above: Result Comment: Account Management Specialist richard Kidney disease could be indicated at eGFRs of less than 60 ml/min/1.73m2. Kidney Failure is indicated at less than 15 ml/min/1.73m2 Performed By: #### 9 561728, 72256987, 4503499, 1849592955, 8465610, 888160935, 8369996, 2717180, 7433627, 5032736 #### [facility] (DEFAULT) [address] [place] [address] Albumin mass conc 4.1 g/dL Normal 3.5-5.0 [facility] Comment on above: Performed By: #### 9 240857, 33752674, 8832184, 8682043140, 9679770, 850128477, 5400204, 8862711, 1571510, 6586970 #### [facility] (DEFAULT) [address] [place] [address] Albumin/Globulin mass ratio 1.2 {ratio} Low 1.4-2.6 [facility] Comment on above: Performed By: #### 9 762283, 05025462, 8354906, 3181670970, 6558567, 111334690, 3689678, 2046605, 3973849, 9874923 #### [facility] (DEFAULT) [address] [place] [address] Alk Phos 57 IU/L Normal 32-91 [facility] Comment on above: Performed By: #### 9 043963, 68934111, 0085166, 6621534281, 4277993, 682922041, 7921337, 1363320, 1459808, 2469008 #### [facility] (DEFAULT) [address] [place] [address] ALT/SGPT 68.0 IU/L High 14.0-54.0 [facility] Comment on above: Performed By: #### 9 790724, 56971532, 5296779, 2554900331, 0916838, 426159686, 5021450, 4437366, 0553033, 0172213 #### [facility] (DEFAULT) [address] [place] [address] Anion gap molar conc 15.0 mmol/L Normal 5.0-19.0 [facility] Comment on above: Performed By: #### 9 612516, 50571076, 1813512, 3630376141, 5274071, 553142717, 0276952, 6734584, 9500920, 5545140 #### [facility] (DEFAULT) [address] [place] [address] AST/SGOT 40 IU/L Normal 15-41 [facility] Comment on above: Performed By: #### 9 618980, 52348318, 4105329, 4517794138, 6984604, 198889041, 8015449, 4118466, 3105524, 9216720 #### [facility] (DEFAULT) [address] [place] [address] Bili Total 0.2 mg/dL Low 0.3-1.2 [facility] Comment on above: Performed By: #### 9 602686, 89185025, 9878665, 9252488362, 2165351, 250633865, 5016321, 3711054, 0248683, 7411636 #### [facility] (DEFAULT) [address] [place] [address] Calcium mass conc 9.1 mg/dL Normal 8.9-10.3 [facility] Comment on above: Performed By: #### 9 965102, 83862269, 1722647, 6099618721, 7153678, 284223738, 0353055, 7134896, 5557728, 6933961 #### [facility] (DEFAULT) [address] [place] [address] Chloride molar conc 103 mmol/L Normal 101-111 [facility] Comment on above: Performed By: #### 9 953592, 72840317, 9201025, 2204648205, 8753441, 487893661, 9969232, 0192800, 4923385, 0247195 #### [facility] (DEFAULT) [address] [place] [address] CO2 molar conc 24 mmol/L Normal 21-32 [facility] Comment on above: Performed By: #### 9 095750, 40751853, 9011411, 5554638040, 8676284, 306581283, 6871006, 6018861, 5085223, 2268777 #### [facility] (DEFAULT) [address] [place] [address] Creatinine mass conc 0.71 mg/dL Normal 0.60-1.30 [facility] Comment on above: Performed By: #### 9 513145, 56133060, 2961157, 8511871370, 3294711, 343652442, 5680362, 2541989, 1188943, 9132860 #### [facility] (DEFAULT) [address] [place] [address] Globulin mass conc (S) 3.3 g/dL Normal 1.5-4.3 [facility] Comment on above: Performed By: #### 9 327260, 97389759, 1816888, 5125833478, 5511943, 856820355, 9442056, 0533375, 0129829, 2678397 #### [facility] (DEFAULT) [address] [place] [address] Glucose mass conc 94.0 mg/dL Normal 74.0-118.0 [facility] Comment on above: Performed By: #### 9 072280, 91885410, 6803607, 7910043112, 6730562, 106978772, 4960239, 0246161, 1900245, 2206092 #### [facility] (DEFAULT) [address] [place] [address] Osmolality 274 mOsm/L [facility] Comment on above: Performed By: #### 9 726209, 67545064, 8759064, 7108055214, 3357511, 845388916, 9475387, 3707564, 9770929, 8523574 #### [facility] (DEFAULT) [address] [place] [address] Potassium molar conc 3.8 mmol/L Normal 3.6-5.1 [facility] Comment on above: Performed By: #### 9 915603, 98621970, 3549198, 4809652415, 0768037, 638033281, 6011193, 3235652, 8432642, 1225338 #### [facility] (DEFAULT) [address] [place] [address] Protein mass conc 7.4 g/dL Normal 6.5-8.1 [facility] Comment on above: Performed By: #### 9 077468, 86845233, 9620280, 9575545771, 7965151, 714325464, 2976956, 1028524, 9394731, 4774843 #### [facility] (DEFAULT) [address] [place] [address] Sodium molar conc 138.0 mmol/L Normal 136.0-144.0 [facility] Comment on above: Performed By: #### 9 789183, 42532525, 8416770, 9089050739, 7995195, 205216908, 5164046, 3796090, 8200439, 1123683 #### [facility] (DEFAULT) [address] [place] [address] Urea nitrogen mass conc 10 mg/dL Normal 8-26 [facility] Comment on above: Performed By: #### 9 450979, 92667524, 2292987, 4002465494, 6903206, 409603680, 7561289, 4290927, 6323702, 3324265 #### [facility] (DEFAULT) [address] [place] [address] Urea nitrogen/Creatinine mass ratio 14.0 mg/mg Normal 4.6-16.2 [facility] Comment on above: Performed By: #### 9 801569, 60378488, 8492805, 2429744222, 9578086, 290843135, 7829332, 7361956, 4670016, 2550384 #### [facility] (DEFAULT) [address] [place] [address] Folateon 10-01-2018 Folic Acid Level 13.29 ng/mL Normal 5.90-24.80 [facility] Comment on above: Result Comment: Norm al folate results > 3.0 ng/mL. Performed By: #### 9 609972, 92324821, 1769146, 1476777772, 8868528, 308754913, 1021478, 7001707, 0380289, 1982894 #### [facility] (DEFAULT) [address] [place] [address] 70273 Iron Levelon 10-01-2018 Iron mass conc 53.0 ug/dL Normal 28.0-170.0 [facility] Comment on above: Performed By: #### 9 082739, 06153327, 1555989, 0626915419, 2519643, 254102927, 5208094, 3542514, 2444701, 4458716 #### [facility] (DEFAULT) [address] [place] [address] Magnesiumon 10-01-2018 Magnesium mass conc 2.01 mg/dL Normal 1.80-2.50 [facility] Comment on above: Result Comment: The reference range for magnesium has changed from 0.40-2.10 mg/dl to 1.80-2.50 mg/dl as of 08/15/15. Performed By: #### 9 797110, 36423699, 0853988, 6900672282, 9171967, 221131837, 8771338, 5340995, 3316734, 5801762 #### [facility] (DEFAULT) [address] [place] [address]78[address] Phoson 10-01-2018 Phosphate mass conc 3.1 mg/dL Normal 2.5-4.6 [facility] Comment on above: Performed By: #### 9 030574, 13289444, 4989904, 7478919541, 3400365, 019952516, 0855037, 8547023, 9444160, 7917619 #### [facility] (DEFAULT) [address] [place] [address] Vit B12 Lvlon 10-01-2018 Cobalamin (Vitamin B12) mass conc 1488 pg/mL High 180-914 [facility] Comment on above: Performed By: #### 9 347204, 26600964, 4148486, 3775216448, 0108479, 332608368, 0064360, 6403003, 5930139, 3748512 #### [facility] (DEFAULT) [address] [place] [address] 28988 Vit D25 OHon 10-01-2018 Vitamin D 25 OH 41 ng/mL [facility] Comment on above: Result Comment: In [...] J Clin Endocrinol Metab 2011; 96 (7): 9542-9356. Performed By: #### 9 498956, 40859504, 1298934, 3121410706, 0540003, 040500674, 5806790, 7483508, 6512254, 9298174 #### [facility] (DEFAULT) [address] [place] [address] Vital Signs Date Time Vital Sign Value Performing Clinician Facility 10-28-2024 08:58-0400 Body mass index (BMI) [Ratio] 32.83 kg/m2 Maddie WRIGHT Work Phone: [facility] 10-28-2024 08:58-0400 Body weight 78.81 kg Maddie WRIGHT Work Phone: [facility] 10-28-2024 08:58-0400 Diastolic blood pressure 82 mm[Hg] Maddie WRIGHT Work Phone: [facility] 10-28-2024 08:58-0400 Systolic blood pressure 122 mm[Hg] Maddie WRIGHT Work Phone: [facility] 10-07-2024 14:10-0400 Body mass index (BMI) [Ratio] [...] 06-17-2024 08:57-0500 Body weight 73.03 kg Maddie WRIGTH Work Phone: [facility] 06-17-2024 [...] 04-17-2024 11:01-0500 Systolic blood pressure 118 mm[Hg] [facility] Nurse [facility] 01-09-2024 15:59-0400 [...] Pressure Location Scotty LOGAN [facility] 08-16-2021 10:22-0400 Diastolic blood pressure 72 mm[Hg] Scotty LOGAN [facility] 08-16-2021 10:22-0400 Heart rate 84 /min Scotty LOGAN [facility] 08-16-2021 10:22-0400 Respiratory rate 16 /min Scotty LOGAN [facility] 08-16-2021 10:22-0400 Systolic blood pressure 104 mm[Hg] Scotty LOGAN [facility] Encounters Encounter Date Encounter Type Care Provider Facility Start: 10-28-2024 End: 10-28-2024 Cornelioo flowsheet Maddie WRIGHT Work Phone: [facility] Start: 10-28-2024 End: 10-28-2024 Bamboo flowsstephanie WRIGHT Work Phone: [facility] Start: 10-28-2024 End: 10-28-2024 Clinisync Result Encounter Douglas Debbie DO Work Phone: [facility] Unsolicited Start: 10-28-2024 End: 10-28-2024 flow sheet Maddie Harp PA Work Phone: [facility] Comment on above: Third trimester preg lian (HHS-HCC); 36 weeks gestation of (HHS-HCC) Start: 10-21-2024 End: 10-21-2024 Bamboo flowsheet Douglas Debbie DO Work Phone: [facility] Start: 10-21-2024 End: 10-21-2024 Bamboo flowsheet Douglas Debbie DO Work Phone: [facility] Start: 10-21-2024 End: 10-21-2024 Clinisync Result Encounter Generic External Data Provider [facility] Unsolicited Start: 10-21-2024 End: 10-21-2024 ambulatory DOUGLAS DEBBIE Not Available Start: 10-14-2024 End: 10-14-2024 Clinisync Result Encounter Generic External Data Provider [facility] Unsolicited Start: 10-14-2024 End: 10-14-2024 Clinisync Result Encounter Generic External Data Provider [...] Start: 09-23-2024 End: 09-23-2024 Bamboo flowsheet Douglas Edbbie DO Work Phone: [facility] Start: [...] DO Work Phone: [facility] Start: 07-16-2024 End: 07-16-2024 Bamboo flowsheet Douglas Debbie DO Work Phone: [facility] Start: 07-16-2024 End: 07-16-2024 flow sheet Douglas Debbie DO Work Phone: [facility] Comment on above: 22 weeks gestation o f ; Second trimester ; Diabetes mellitus screening; History of gastric bypass; Nonintractable headache, unspecified chronicity pattern, unspecified headache type Start: 07-16-2024 End: 07-16-2024 ambulatory DOUGLAS QUINTEROO Not Available Start: 07-09-2024 End: 07-09-2024 ambulatory MADDIE HARP Not Available Start: 06-17-2024 End: 06-17-2024 Bamboo flowsheet Maddie WRIGHT Work Phone: [facility] Start: 06-17-2024 End: 06-17-2024 Bamboo flowsheet Maddie WRIGHT Work Phone: [facility] Start: 06-17-2024 End: 06-17-2024 flow sheet Maddie WRIGHT Work Phone: [facility] Comment on [...] Start: 07-24-2023 End: 07-25-2023 ambulatory Scotty LOGAN Facility:[facility] Start: 07-24-2023 End: 07-24-2023 Patient encounter procedure Scotty LOGAN [facility] Start: 05-09-2022 ambulatory CHERYL TOTH Facility:[facility] Start: 04-09-2022 End: 04-10-[address] SCOTTY LOGAN Facility:[facility] Start: 02-28-2022 End: 03-01-2022 ambulatory CHERYL TOTH Facility:[facility] Start: 12-28-2021 End: 12-29-[address] DOCTOR WHALEN Facility:[facility] Start: 09-01-2021 End: 09-02-[address] DOCTOR WHALEN Facility:[facility] Start: 08-16-2021 End: 08-16-2021 Patient encounter procedure Scotty LOGAN [facility] Start: 08-11-2021 End: 08-12-[address] DOCTOR WHALEN Facility:[facility] Start: 05-22-2021 End: 05-29-[address] DOUGLAS LEWIS Facility:[facility] Start: 05-11-2021 End: 05-14-2021 Evaluation and management of inpatient DR DOUGLAS LEWIS Facility:[facility] Procedures Date Procedure Procedure Detail Performing Clinician Start: 10-28-2024 US OB BPP W NON-STRESS Douglas Lewis DO Work Phone: Start: 10-21-2024 US OB BPP W NON-STRESS Generic External Data Provider Start: 10-14-2024 US OB BPP W NON-STRESS Generic External Data Provider Start: 10-07-2024 US OB BPP W NON-STRESS Generic External Data Provider Start: 09-23-2024 Urnls dip stick/tabl et rgnt non-auto w/o micrscp Douglas Debbie DO Work Phone: Start: 07-22-2024 [facility] CMP (CMP) (FOR R EMOTE C USE) Douglas Debbie DO Work Phone: Start: [...] object) Scotty LOGAN Bypass of stomach Scotty MALDONADO Cholecystectomy Scotty LOGAN Plan of Treatment Date Care Activity Detail Author Start: 12-28-2024 Influenza vaccination [facility] Start: 11-10-2024 End: 11-10-2024 Patient encounter procedure 11/10/2024 10:00 AM EDT Office Visit [facility] [address] [place] [address] Douglas eLwis, DO [address] [place], [place] [address] [facility] Start: 11-04-2024 End: 11-04-2024 Patient encounter procedure 11/04/2024 10:50 AM EDT Routine [facility] [address] [place] [address] Douglas Lewis, DO [address] [place] [address] [facility] Start: 10-28-2024 End: 10-28-2024 Patient encounter procedure [facility] Comment on above: Arrived Start: 10-26-2024 Influenza vaccination Influenza Vacc ine (#1) [facility] Comment on above: Postponed from 12/28 (Patient Refused) Start: 10-21-2024 End: 10-21-2024 Patient encounter procedure 10/21/2024 1:30 PM EDT Routine [facility] [address] [place] [address] Douglas Lewis, DO [address] [place] [address] [facility] Start: 10-07-2024 End: 10-07-2024 Patient encounter procedure 10/07/2024 1:50 PM EDT Routine [facility] [address] [place] [id number] Douglas Lewis, DO [address] [place] [address] [facility] Start: 09-23-2024 End: 09-23-2024 Patient encounter procedure 09/23/2024 11:30 AM EDT Routine [facility] [address] [facility] [place] [place] [address] Douglas Lewis, DO [address] [place] [address] [facility] Start: 09-15-2024 End: 09-15-2024 Professional / ancillary services management 09/15/2024 11:30 AM EDT Ancillary Procedure [facility] [address] [facility] [place] [place] [phone] [facility] Start: 09-08-2024 End: 03-11-2025 US biophysical profile w non stress test US biophysical profile w non stress test Imaging Routine History of gastric bypass Expected: 09/08/2024 (Approximate), Expires: 03/11/2025 [facility] Work Phone: Comment on above: Expected: 09/08/2024 (Approximate), Expires: 03/11/2025 Start: 09-08-2024 End: 01-09-2025 US for US OB follow up transabdominal approach Imaging Routine History of gastric bypass Expected: 09/08/2024, Expires: 01/09/2025 [facility] Comment on above: Expected: 09/08/2024 , Expires: 01/09/2025 Start: 09-08-2024 End: 09-08-2024 Patient encounter procedure 09/08/2024 9:20 AM EDT Routine [facility] [address] [facility] [place] [phone] Douglas Lewis, DO [address] [place] [address] [facility] Start: 08-26-2024 End: 08-26-2024 Patient encounter procedure 08/26/2024 8:50 AM EDT Routine [facility] [address] [facility] [place] [place] [phone] Ingrid Villalta, MAGAZINE PUBLISHER [address] [facility] [place] [phone] [facility] Start: 08-13-2024 End: 08-13-2024 Patient encounter procedure 08/13/2024 9:10 AM EDT Routine [facility] [address] [facility] [place] [phone] Douglas Lewis, DO [address] [place] [address] [facility] Start: 07-16-2024 End: 07-16-2025 [...] EDT Ancillary Procedure [facility] [address] [facility] [address] [facility] Start: 06-17-2024 End: 06-17-2025 [...] age Expected: 04/17/2024 (Approximate), Expires: 04/17/2025 [facility] Comment on above: Expected: 04/17/2024 (Approximate), Expires: 04/17/2025 Start: 04-17-2024 End: 04-17-2025 Blood type and Indirect antibody screen panel - Blood Type and screen Lab Routine Missed menses , unspecified gestational age Expected: 04/17/2024 (Approximate), Expires: 04/17/2025 [facility] Work Phone: Comment on above: Expected: 04/17/2024 (Approximate), Expires: 04/17/2025 Start: 04-17-2024 End: 04-17-2025 Drugs of abuse panel - Urine by Screen method Rapid drug screen, urine Lab Routine , unspecified gestational age Encounter for supervision of normal first in first trimester Expected: 04/17/2024 (Approximate), Expires: 04/17/2025 [facility] Comment on above: Expected: 04/17/2024 (Approximate), Expires: 04/17/2025 Start: 04-17-2024 End: 04-17-2025 US Pelvis transvaginal US OB transvaginal Imaging Routine Missed menses Expected: 04/17/2024 (Approximate), Expires: 04/17/[address] [facility] Comment on above: Expected: 04/17/2024 (Approximate), Expires: 04/17/2025 Start: 01-16-2024 End: 01-16-2024 Professional / ancillary services management 01/16/2024 10:00 AM EDT [facility] [address] [place] [address] [facility] [address] Start: 01-11-2024 End: 01-10-2025 CT Abdomen [...] Immunization Date Immunization Notes Care Provider Fa [facility] 05-03-2020 influenza, injectabl e, quadrivalent, contains preservative Xena Mccallum MD Work Phone: [facility] 05-03-2020 influenza virus vacc ine, unspecified formulation Xena Mccallum MD Work Phone: [facility] 01-29-2018 influenza, injectabl e, quadrivalent, contains preservative Xena Mccallum MD Work Phone: [facility] 02-21-2016 influenza, seasonal, injectable, preservative free Xena Mccallum MD Work Phone: [facility] Payers Date Payer Category Payer [facility] [id number] [id number] 2023 Unknown [id number] 2022 Medicaid [facility] MEDICAID [place] MEDICA[place] [id number] 2022-Present [address] [place] [address] [id number] 2022 Medicaid (Managed Care) [facility] MEDICAID [id number] 1995 Unknown [id number] 2.16840.1.808281.3.579.2. 593 1995 Unknown [id number] 2.16.840.1.350508.3.579.2. 593 1995 Unknown [id number] 2.16.840.1.575616.3.579.2. 593 1995 Unknown [id number] 2.16.840.1.977836.3.579.2. 593 1995 Unknown [id number] 2.16.840.1.794156.3.579.2. 593 1995 Unknown [id number] 2.16.840.1.596096.3.579.2. 593 1995 Unknown [id number] 2.16.840.1.811682.3.579.2. 593 1995 Unknown [id number] 2.16.840.1.786933.3.579.2. 593 1995 Unknown [id number] 2.16.840.1.921871.3.579.2. 593 1995 Unknown [id number] 2.16.840.1.345344.3.579.2. 727 1995 Unknown [id number] 2.16.840.1.000696.3.579.2. 1259 1995 Unknown [id number] 2.16.840.1.699408.3.579.2. 1259 1995 Unknown [id number] 2.16.840.1.982533.3.579.2. 1259 1995 Unknown [id number] 2.16.840.1.755784.3.579.2. 1259 1995 Unknown [id number] 2.16.840.1.622543.3.579.2. 1259 1995 Unknown [id number] 2.16.840.1.593249.3.579.2. 1259 1995 Unknown [id number] 2.16.840.1.739254.3.579.2. 1259 1995 Unknown [id number] 2.16.840.1.561903.3.579.2. 1259 1995 Unknown [id number] 2.16.840.1.039380.3.579.2. 1259 1995 Unknown [id number] 2.16.840.1.408163.3.579.2. 1259 1995 Unknown [id number] 2.16.840.1.177244.3.579.2. 1259 1995 Unknown [id number] 2.16.840.1.250413.3.579.2. 1259 1995 Unknown [id number] 2.16.840.1.772768.3.579.2. 1259 1995 Unknown [id number] 2.16.840.1.099924.3.579.2. 1259 1959 Self-pay [id number] 1959 Unknown [id number] Social History Date Type Detail Facility Start: 04-29-2020 End: 06-18-2023 Tobacco smoking status Never smoked tobacco (finding) [facility] Comment on above: Pt. denies Tobacco smoking status Never [facility] Comment on above: Pt. denies Start: 06-18-2023 End: 01-13-2024 Sex Assigned At Female [facility] Start: 06-18-2023 Tobacco use and exposure Smokeless [...] file N [facility] Start: 02-27-2024 [facility] Clinical Notes 05-11-2021 to 10-28-2024 KYLE Martinez - 10/28/2024 9:00 AM López Perry LPN - 10/07/2024 1:50 PM López Perry LPN - 09/23/2024 11:30 AM López Perry LPN - 09/08/2024 9:20 AM KYLE Pinto - 06/17/2024 8:40 AM EST Note Date & Type Note Facility 10-28-2024 History of Presen t illness Narrative Reason [...] 08/10/2021 Insomnia 06/18/2023 22 weeks gestation of ([facility]) 07/16/2024 Second trimester ([facility]) 07/16/2024 Resolved Ambulatory Problems Diagnosis Date Noted [...] COSMETIC SURGERY 05/17/2020 [facility] [place] ELBOW SURGERY Left 2000 OTHER SURGICAL HISTORY [...] Vitals: Estimated body mass index is 32.83 kg/m as calculated from the following: Height as of 01/09/24: 5' 1 . Weight as of this encounter: 173 lb 12 oz. BP: 122/82 Patient's last menstrual period was 02/13/2024. ASSESSMENT & PLAN ICD-10-CM 1. Third trimester ([facility] Z34.93 2. 36 weeks gestation of ([facility]) Z3A.36 Return OB: Patient presents today for [...] in this encounter [facility] 10-07-2024 History of Presen t illness Narrative [...] Active Ambulatory Problems Diagnosis Date Noted Depression ([facility]) 06/18/2023 Anemia 06/18/2023 Anxiety 06/18/2023 Recurrent nephrolithiasis 09/05/2016 Essential thrombocythemia ([facility]) 06/18/2023 Gastric bypass status for obesity 08/10/2021 [...] COSMETIC SURGERY 05/17/2020 [facility] [place] ELBOW SURGERY Left 2000 OTHER SURGICAL HISTORY [...] nursing note reviewed. Exam conducted with a chiropractic neurologist present. Vitals: Estimated body mass index is [...] Active Ambulatory Problems Diagnosis Date Noted Depression ([facility]) 06/18/2023 Anemia 06/18/2023 Anxiety 06/18/2023 Recurrent nephrolithiasis 09/05/2016 Essential thrombocythemia ([facility]) 06/18/2023 Gastric bypass status for obesity 08/10/2021 [...] COSMETIC SURGERY 05/17/2020 [facility] [place] ELBOW SURGERY Left 2000 OTHER SURGICAL HISTORY [...] nursing note reviewed. Exam conducted with a chiropractic neurologist present. Vitals: Estimated body mass index is [...] Active Ambulatory Problems Diagnosis Date Noted Depression ([facility]) 06/18/2023 Anemia 06/18/2023 Anxiety 06/18/2023 Recurrent nephrolithiasis 09/05/2016 Essential thrombocythemia ([facility]) 06/18/2023 Gastric bypass status for obesity 08/10/2021 [...] COSMETIC SURGERY 05/17/2020 [facility] [place] ELBOW SURGERY Left 2000 OTHER SURGICAL HISTORY [...] nursing note reviewed. Exam conducted with a chiropractic neurologist present. Vitals: Estimated body mass index is [...] Active Ambulatory Problems Diagnosis Date Noted Depression ([facility]) 06/18/2023 Anemia 06/18/2023 Anxiety 06/18/2023 Recurrent nephrolithiasis 09/05/2016 Essential thrombocythemia ([facility]) 06/18/2023 Gastric bypass status for obesity 08/10/2021 [...] COSMETIC SURGERY 05/17/2020 [facility] [place] ELBOW SURGERY Left 1999 OTHER SURGICAL HISTORY [...] nursing note reviewed. Exam conducted with a chiropractic neurologist present. Vitals: Estimated body mass index is [...] Active Ambulatory Problems Diagnosis Date Noted Depression ([facility]) 06/18/2023 Anemia 06/18/2023 Anxiety 06/18/2023 Recurrent nephrolithiasis 09/05/2016 Essential thrombocythemia ([facility]) 06/18/2023 Gastric bypass status for obesity 08/10/2021 [...] 07/2018 CHOLECYSTECTOMY 05/2014 Laparoscopic COSMETIC SURGERY 05/17/2020 [facility] [place] ELBOW SURGERY Left 1999 OTHER SURGICAL HISTORY [...] nursing note reviewed. Exam conducted with a chiropractic neurologist present. Vitals: Estimated body mass index is [...] Active Ambulatory Problems Diagnosis Date Noted Depression ([facility]) 06/18/2023 Anemia 06/18/2023 Anxiety 06/18/2023 Recurrent nephrolithiasis 09/05/2016 Essential thrombocythemia ([facility]) 06/18/2023 Gastric bypass status for obesity 08/10/2021 [...] 07/2018 CHOLECYSTECTOMY 05/2014 Laparoscopic COSMETIC SURGERY 05/17/2020 [facility] in [place] ELBOW SURGERY Left 1999 OTHER SURGICAL HISTORY [...] nursing note reviewed. Exam conducted with a chiropractic neurologist present. Vitals: Estimated body mass index is [...] Active Ambulatory Problems Diagnosis Date Noted Depression ([facility]) 06/18/2023 Anemia 06/18/2023 Anxiety 06/18/2023 Recurrent nephrolithiasis 09/05/2016 Essential thrombocythemia ([facility]) 06/18/2023 Gastric bypass status for obesity 08/10/2021 [...] COSMETIC SURGERY 05/17/2020 [facility] [place] ELBOW SURGERY Left 2000 OTHER SURGICAL HISTORY [...] nursing note reviewed. Exam conducted with a chiropractic neurologist present. Vitals: Estimated body mass index is [...] or undercooked meat, and stay away from [facility]. Patient has been consulted regarding any further [...] COSMETIC SURGERY 05/17/2020 [facility] [place] ELBOW SURGERY Left 1999 OTHER SURGICAL HISTORY 2015 kidney stent WRIST SURGERY Left 2000 Allergies [...] or undercooked meat, and stay away from [facility]. Patient has also been advised to not [...] 07/2018 CHOLECYSTECTOMY 05/2014 Laparoscopic COSMETIC SURGERY 05/17/2020 [facility] in [place] ELBOW SURGERY Left 2000 OTHER SURGICAL HISTORY [...] this encounter [facility] 08-16-2021 [facility] Discharg e instructions Follow Up Care 08/16/2021 11:11:34 With:DESMOND BURKS, Scotty English, URL Address: [address] [place], [place] [id number]- When: Unknown [facility] 08-16-2021 Hospital Discharg e instructions Patient Education 08/16/2021 11:04:11 Kidney Stones, Lpsy-[id number]-[id number] Kidney Stones Kidney stones are rock-like masses [...] Follow these instructions at home: Medicines Take ekax-dyj-yegfqat and prescription medicines only as told by [...] 10/01/2008 Document Revised: 09/01/2019 Document Reviewed: 09/01/2019 [employer] Patient Education 2020 [employer]. 08/16/2021 11:04:10 Calorie Counting for Weight Loss [...] 04/15/2006 Document Revised: 01/02/2019 Document Reviewed: 03/15/2017 [employer] Patient Education 2020 [employer]. Follow Up Care 03/22/2021 11:46:26 With:DESMOND BURKS, Scotty English, URL Address: When:Within 6 Month(s) Comments:w/MAGALYS [facility] 05-11-2021 Note DISCHARGE SUMMARY PRIMARY DIAGNOSES: [...] and no longer on narcotics. [facility] Signed and Approved by: DR DOUGLAS LEWIS . 06/08/2021 22:19:00 [facility] 05-11-2021 Note OPERATIVE NOTE PROCEDURE: Primary low transverse section. PREOPERATIVE DIAGNOSIS: 1. Intrauterine at 39 weeks. 2. Non-reassuring heart tones. POSTOPERATIVE DIAGNOSIS: 1. Intrauterine at 39 weeks. 2. Non-reassuring heart tones. SURGEON: Douglas Lewis D.O. SPRAY PAINTER: MELINA ANESTHESIA: Epidural with Duramorph. BLOOD LOSS: [...] Recovery Room in stable condition. [facility] Signed and Approved by: DR DOUGLAS LEWIS . 06/08/2021 22:19:00 [facility] Evaluation + Plan note Future Appointments Appointment Date:09/19/2021 11:00:00 AM Scheduled Provider:Scotty LOGAN MD Location:[facility] [place] Appointment Type:URO Phone Visit Appointment Date:02/21/2022 11:15:00 AM Scheduled Provider:Scotty LOGAN MD Location:[facility] Appointment Type:URO Office Visit [facility] Evaluation note Diagnosis Neck pain Cervicalgia [...] [facility] Diagnosis Third trimester ([facility]) state, incidental 36 weeks gestation of ([facility]) [facility] Narrative No data available for this section [facility] Progress note No data available for this section [facility] [place] Summary Purpose Family History No Family History [...] pelvis wo IV contrast Xena Mccallum MD [address] [place] [address] Referral ID Status Reason Start Date Expiration Date V isits Requested Visits Authorized [id number] Pending Review 01/11/2024 07/09/2024 1 1 Additional Source Comments INFORMATION SOURCE (unrecogn ized section and content) DATE CREATED AUTHOR 10/05/2018 [facility] DATE CREATED AUTHOR AUTHOR'S ORGANIZ ATION 06/06/2021 [facility] DATE CREATED AUTHOR AUTHOR'S ORGANIZ ATION 07/13/2021 [facility] DATE CREATED AUTHOR AUTHOR'S ORGANIZ ATION 05/09/2022 [facility] DATE CREATED AUTHOR AUTHOR'S ORGANIZ ATION 07/26/2023 [facility] DATE CREATED AUTHOR AUTHOR'S ORGANIZ ATION 10/22/2024 [facility] EPIC Patient Care team informatio n (unrecognized section and content) Interlocker Maintainer Relationship Specialty Start Date End Date Xena Mccallum MD [address] [facility] [place] [address] PCP - General Family Medicine 09/04/22 Isabel Li NP [address] [facility] [place] [address] PCP - [facility] 10/28/23 Interlocker Maintainer Relationship Specialty Start Date End Date Xena Mccallum MD [address] [place] [address] PCP - General Family Medicine 09/04/22 Isabel Li, JENNY [address] [place] [address] PCP - [facility] 10/28/23 Interlocker Maintainer Relationship Specialty Start Date End Date Xena Mccallum MD [address] [place] [address] PCP - General Family Medicine 09/04/22 Isabel Li, MAGAZINE PUBLISHER [address] [place] [address] PCP - [facility] 10/28/23 Interlocker Maintainer Relationship Specialty Start Date End Date Xena Mccallum MD [address] [place] [address] PCP - General Family Medicine 09/04/22 Isabel Li, MAGAZINE PUBLISHER [address] [place] [address] PCP - [facility] 10/28/23 Interlocker Maintainer Relationship Specialty Start Date End Date Xena Mccallum MD [address] [place] [address] PCP - General Family Medicine 09/04/22 Isabel Li NP [address] [place] [address] PCP - [facility] 10/28/23 Interlocker Maintainer Relationship Specialty Start Date End Date Xena Mcacllum MD [address] [place] [address] PCP - General Family Medicine 09/04/22 Isabel Li MAGAZINE PUBLISHER PCP - [facility] 10/28/23 Interlocker Maintainer Relationship Specialty Start Date End Date Xena Mccallum MD [address] [place] [address] PCP - General Family Medicine 09/04/22 Isabel Li MAGAZINE PUBLISHER PCP - [facility] 10/28/23 Interlocker Maintainer Relationship Specialty Start Date End Date Xena Mccallum MD [address] [place] [address] PCP - General Family Medicine 09/04/22 Isabel Li MAGAZINE PUBLISHER PCP - [facility] 10/28/23 Interlocker Maintainer Relationship Specialty Start Date End Date Xena Mccallum MD [address] [place] [address] PCP - General Family Medicine 09/04/22 Isabel Li, MAGAZINE PUBLISHER PCP - [facility] 10/28/23 Interlocker Maintainer Relationship Specialty Start Date End Date Xena Mccallum MD [address] [place] [address] PCP - General Family Medicine 09/04/22 Isabel Li, MAGAZINE PUBLISHER PCP [facility] 10/28/23 Interlocker Maintainer Relationship Specialty Start Date End Date Xena Mccallum MD [address] [place] [address] PCP - General Family Medicine 09/04/22 Isabel Li MAGAZINE PUBLISHER PCP - [facility] 10/28/23 Interlocker Maintainer Relationship Specialty Start Date End Date Xena Mccallum MD [address] [place] [address] PCP - General Family Medicine 09/04/22 Isabel Li MAGAZINE PUBLISHER PCP - [facility] 10/28/23 Interlocker Maintainer Relationship Specialty Start Date End Date Xena Mccallum MD [address] [place] [address] PCP - General Family Medicine 09/04/22 Isabel Li MAGAZINE PUBLISHER PCP - [facility] 10/28/23 Interlocker Maintainer Relationship Specialty Start Date End Date Xena Mccallum MD [address] [place] [address] PCP - General Family Medicine 09/04/22 Isabel Li, MAGAZINE PUBLISHER PCP - [facility] 10/28/23 Interlocker Maintainer Relationship Specialty Start Date End Date Xena Mccallum MD [address] [place] [address] PCP - General Family Medicine 09/04/22 Isabel Li, MAGAZINE PUBLISHER PCP [facility] 10/28/23 Interlocker Maintainer Relationship Specialty Start Date End Date Xena Mccallum MD [address] [place] [address] PCP - General Family Medicine 09/04/22 Isabel Li, JENNY [facility] - [facility] 10/28/23 Interlocker Maintainer Relationship Specialty Start Date End Date Xena Mccallum MD [address] [facility] [place] [address] PCP - [facility] 09/04/22 Isabel Li MAGAZINE PUBLISHER [facility] - [facility] 10/28/23 Interlocker Maintainer Relationship Specialty Start Date End Date Xena Mccallum MD [address] [facility] [place] [address] PCP - [facility] Family [facility] 09/04/22 Isabel Li MAGAZINE PUBLISHER [facility] - [facility] 10/28/23 Reason for Visit (unrecogniz ed [...] BE BASED ON THE PRIMARY CLINICAL RECORDS. [employer] [facility]. provides no warranty or guarantee of the accuracy or completeness of information in this document.
== END 2024-10-28 14:42 | disposition home or self-care (01) ==
LOC: US 13:39 → FBC 13:43
PROVIDERS: PCP Family Medicine; Visit Provider Obstetrics & Gynecology
DX: O26.893 Other specified pregnancy related conditions, third trimester (principal); Z3A.36 36 weeks gestation of pregnancy
CPT/HCPCS: 59025; 76818

== ENCOUNTER 2024-11-04 08:12 | Outpatient (OUT) | payer BC, SELFPAY ==
--- OUTSIDE RECORDS SUMMARY | 2024-03-19 09:15 | XMS_ITS | Continuity of Care Document ---
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 [address] [place] [address] [address], [place], [place], [address], [place]. tel:[phone] Referring Provider: Anjali Caicedo, [address] [place] [address] [address], [place], [address]. tel:[phone] OFFICE/OUTPATI ENT VISIT, [facility] [employer] [facility], [address] [place] [address] [address], [place], [place], [address], [place] tel:[phone] [facility] No Information Endy Cordero. [address] [place] [address] [address], [place], [place], [address], [place]. tel:[phone] Referring Provider: Gil Bentley, [address] [place] [address] [address], [place], [address]. tel:[phone] OFFICE/OUTPATI ENT VISIT, [facility] [employer] [facility], [address] [place] [address] [address], [place], [place], [address], [place] tel:[phone] [facility] No Information Endy Cordero. [address] [place] [address] [address], [place], [place], [address], [place]. tel:[phone] Referring Provider: Gil Bentley, [address] [place] [address] [address], [place], [address]. tel:[phone] [facility], [address] [place] [address] [address], [place], [place], [address], [place] tel:[phone] [facility] No Information Sascha Alba. [address] [place] [address] [address], [place], [place], [address], [place]. tel:[phone] Referring Provider: Anjali Caicedo, [address] [place] [address] [address], [place], [address]. tel:[phone] [facility], [address] [place] [address] [address], [place], [place], [address], [place] tel:[phone] [facility] No Information Sascha Alba. [address] [facility] [address], [place], [place], [address], [place]. tel:[phone] Referring Provider: Anjali Caicedo, [address] [place] [address] [address], [place], [address]. tel:[phone] [facility], [address] [place] [address] [address], [place], [place], [address], [place] tel:[phone] [facility] IP No Information Sascha Alba. [address] [place] [address] [address], [place], [place], [address], [place]. tel:[phone] Referring Provider: Anjali Caicedo, [address] [place] [address] [address], [place], [address]. tel:[phone] [email or web address] [facility], [address] [place] [address] [address], [place], [place], [address], [place] tel:[phone] [facility] IP No Information Endy Cordero. [address] [place] [address] [address], [place], [place], [address], [place]. tel:[phone] Referring Provider: Gil Bentley, [address] [place] [address] [address], [place], [address]. tel:[phone] OFFICE/OUTPATI ENT VISIT, [facility] [employer] [facility], [address] [place] [address] [address], [place], [place], [address], [place] tel:[phone] [facility] No Information Endy Cordero. [address] [place] [address] [address], [place], [place], [address], [place]. tel:[phone] Referring Provider: Gil Bentley, [address] [place] [address] [address], [place], [address]. tel:[phone] OFFICE/OUTPATI ENT VISIT, [facility] [employer] [facility], [address] [place] [address] [address], [place], [place], [address], [place] tel:[phone] [facility] No Information aSscha Alba. [address] [facility] [address], [place], [place], [address], [place]. tel:[phone] Referring Provider: Anjali Caicedo, [address] [place] [address] [address], [place], [address]. tel:[phone] [facility], [address] [place] [address] [address], [place], [place], [address], [place] tel:[phone] [facility] No Information Endy Cordero. [address] [facility] [address], [place], [place], [address], [place]. tel:[phone] Referring Provider: Gil Bentley, [address] [place] [address] [address], [place], [address]. tel:[phone] OFFICE/OUTPATI ENT VISIT, [facility] [employer] [facility], [address] [place] [address] [address], [place], [place], [address], [place] tel:[phone] [facility] No Information Sascha Alba. [address] [place] [address] [address], [place], [place], [address], [place]. tel:[phone] Referring Provider: Anjali Caicedo, [address] [place] [address] [address], [place], [address]. tel:[phone] OFFICE/OUTPATI ENT VISIT, [facility] [employer] [facility], [address] [place] [address] [address], [place], [place], [address], [place] tel:[phone] [facility] No Information Sascha Alba. [address] [place] [address] [address], [place], [place], [address], [place]. tel:[phone] Referring Provider: Anjali Ciacedo, [address] [place] [address] [address], [place], [address]. tel:[phone] OFFICE/OUTPATI ENT VISIT, [facility] [email or web address] [facility], [address] [place] [address] [address], [place], [place], [address], [place] tel:[phone] [facility] No Information Sascha Alba. [address] [facility] [address], [place], [place], [address], [place]. tel:[phone] Referring Provider: Anjali Caicedo, [address] [place] [address] [address], [place], [address]. tel:[phone] OFFICE/OUTPATI ENT VISIT, [facility] [email or web address] [facility], [address] [place] [address] [address], [place], [place], [address], [place] tel:[phone] [facility] No Information Sascha Alba. [facility] [address] [facility] [address], [place], [place], [address], [place]. tel:[phone] Referring Provider: Anjali Caicedo, [address] [place] [address] [address], [place], [address]. tel:[phone] OFFICE/OUTPATI ENT VISIT, [facility] [email or web address] [facility], [address] [place] [address] [address], [place], [place], [address], [place] tel:[phone] [facility] No Information Sascha Alba. [address] [place] [address] [address], [place], [place], [address], [place]. tel:[phone] Referring Provider: Anjali Caicedo, [address] [place] [address] [address], [place], [address]. tel:[phone] [facility], [address] [place] [address] [address], [place], [place], [address], [place] tel:[phone] [facility] No Information Sascha Alba. [address] [place] [address] [address], [place], [place], [address], [place]. tel:[phone] Referring Provider: Anjali Caicedo, [address] [place] [address] [address], [place], [address]. tel:[phone] [facility], [address] [place] [address] [address], [place], [place], [address], [place] tel:[phone] [facility] No Information Sascha Alba. [address] [facility] [address], [place], [place], [address], [place]. tel:[phone] Referring Provider: Anjali Caicedo, [address] [facility] [address], [place], [address]. tel:[phone] [facility], [address] [place] [address] [address], [place], [place], [address], [place] tel:[phone] [facility] IP No Information Endy Cordero. [address] [place] [address] [address], [place], [place], [address], [place]. tel:[phone] Referring Provider: Gil Bentley, [address] [place] [address] [address], [place], [address]. tel:[phone] [facility], [address] [place] [address] [address], [place], [place], [address], [place] tel:[phone] [facility] IP No Information Sascha Alba. [address] [place] [address] [address], [place], [place], [address], [place]. tel:[phone] Referring Provider: Anjali Caicedo, [address] [place] [address] [address], [place], [address]. tel:[phone] OFFICE/OUTPATI ENT VISIT, [facility] [employer] [facility], [address] [place] [address] [address], [place], [place], [address], [place] tel:[phone] [facility] No Information Endy Cordero. [address] [place] [address] [address], [place], [place], [address], [place]. tel:[phone] Referring Provider: Gil Bentley, [address] [place] [address] [address], [place], [address]. tel:[phone] OFFICE/OUTPATI ENT VISIT, [facility] [employer] [facility], [address] [place] [address] [address], [place], [place], [address], [place] tel:[phone] [facility] No Information Endy Cordero. [address] [facility] [address], [place], [place], [address], [place]. tel:[phone] Referring Provider: Gil Bentley, [address] [facility] [address], [place], [address]. tel:[phone] OFFICE CONSULTATION [facility], [address] [place] [address] [address], [place], [place], [address], tel:[phone] [facility] No Information Endy Cordero. [address] [place] [address] [address], [place], [place], [address], [place]. tel:[phone] Referring Provider: Gil Bentley, [address] [place] [address] [address], [place], [address]. tel:[phone] Family History Family Member Type Diagnosis Age At Onset No Information Payers Payer name Insurance type Covered republican ID James sanmarianne(s) [employer] [place] [employer] CI [id number] Social History Type Description Quantity Date Captured [...]
--- OUTSIDE RECORDS SUMMARY | 2024-09-22 06:14 | XMS_ITS | Continuity of Care Document ---
Author Organization [facility] Address [address] [place] [address] Phone Care Team Providers Care Geriatric Personal Care Aide Name Role Phone Lauri Jimenez DMD Unavailable [...] Prophylaxis Adult Nutrit Couns For Control Of [place] Dis Jul Oral Hygiene Instruction Periodic Oral Eval Estab Patient 2024 Oral Hygiene Instruction Resin Composite 1s; Posterior 4 Resin Composite 1s; Posterior 4 Prophylaxis Adult Nutrit Couns For Control Of [place] Dis Oct Oral Hygiene Instruction Prophylaxis Adult Nutrit Couns For Control Of [place] Dis Jan Oral Hygiene Instruction Oral Hygiene Instruction Resin Composite 2s; Posterior Intraoral-complete Series (bw) Oral Hygiene Instruction Comp Oral Eval New/estab Patient 2022 Advance Directives Directive Yes / No Effective Date File Name No Information Encounters Encounter Description Practice Location Reason(s) For Visit Diagnoses Date Provider Providers Copied on Encounter [facility], [address] [place] [address], [id number], [place] tel:[phone] [facility] (chief complaint) Body mass index [BMI] 32.0-32.9, adultEncounter for screening for dental disorders Tony Proctoral. [address] [place] [address], [id number] , [place]. tel:[phone] [facility], [address] [place] [address], [id number], [place] tel:[phone] [facility] pa (chief complaint) Encounter for screening for dental disordersBody mass index [BMI] 32.0-32.9, adult Tony DMD Lauri. [address] [place], [place], [id number] , [place]. tel:[phone] [facility], [address] [place] [address], [id number], [place] tel:[phone] [facility] filling (chief complaint) Encounter for screening for dental disorders Tony DMD Lauri. [address] [place], [place], [id number] , [place]. tel:[phone] [facility], [address] [place] [address], [id number], [place] tel:[phone] [facility] [place] (chief complaint) Encounter for screening for dental disorders Tony DMD Lauri. [address] [place], [place], [id number] , [place]. tel:[phone] [facility], [address] [place] [address], [id number], [place] tel:[phone] [facility] [place] (chief complaint) Encounter for screening for dental disorders Tony Carreon. [address] [place], [place], [id number] , [place]. tel:[phone] [facility], [address] [place] [address], [id number], [place] tel:[phone] [facility] DAVIDA (chief complaint) Encounter for screening for dental disorders Tony Carreon. [address] [place], [place], [id number] , [place]. tel:[phone] [facility], [address] [place] [address], [id number], tel:[phone] [facility] Dental Clinic DN (chief complaint) Encounter for screening for dental disorders Tony Carreon. [address] [place], [place], [id number] , [place]. [phone] Family History Family Member Type Diagnosis Age At Onset No Information Payers Payer name Insurance type Covered green party ID Authoriza tion(s) No Information Social [...] nt education, guidance, and counseling completed Goal Unhealthy drug use screening . Due on due Goal Depression screening. Due on due Goal PRAPARE ASSESSMENT. Due on A due Goal Tdap Vaccine. Due on 2024 due Goal RLP. Due on due Goal Influenza vaccine. Due on Ap r due Goal Hepatitis C screening. Due o n due Goal PAP. Due on due Goal Tdap. Due on due Goal Hep A. Due on du e Goal Dietary manageme nt education, guidance, and counseling completed Goal Tdap. Due on due Goal PAP. Due on due Goal PRAPARE ASSESSMENT. Due on N due Goal Tdap Vaccine. Due on 2023 due Goal Hepatitis C screening. Due o n due Goal RLP. Due on due Goal Influenza vaccine. Due on No due Goal Unhealthy drug use screening . Due on due Goal Depression screening. Due on due Goal Depression screening. Due on due Goal PRAPARE ASSESSMENT. Due on J due Goal Hepatitis C screening. Due o n due Goal Tdap. Due on due Goal Unhealthy drug use screening . Due on due Goal Tdap Vaccine. Due on 2023 due Goal PAP. Due on due Goal Hep A. Due on du e Goal RLP. Due on due Goal Influenza [...] C screening. Due o n due Goal RLP. Due on due Goal Influenza vaccine. Due on Se p due Goal PRAPARE ASSESSMENT. Due on S ep due Goal Tdap. Due on due Goal Depression screening. Due on due Goal PAP. Due on due Goal Tdap Vaccine. Due on 2022 due Goal Influenza vaccine. Due on Au due Goal PRAPARE ASSESSMENT. Due on A due Goal Tdap. Due on due Goal Depression screening. Due on due Goal PAP. Due on due Goal Tdap Vaccine. Due on 2022 due Goal RLP. Due on due Referral Ordered: Xena Mccallum timeframe: 6 [...]
--- OUTSIDE RECORDS SUMMARY | 2024-10-21 13:30 | XMS_ITS | Encounter Summary ---
Author Organization [facility] Address [address] [place] [address] Care Team Providers Care Systems Lead Name Role Phone Xena Mccallum MD Primary Care Provider [phone] Isabel Li SENIOR COST ACCOUNTANT Unavailable Reason for Visit * Reason Comments Routine Visit Encounter Details Date Type Department Care Team (Late Contact Info) Description 10/21/2024 1:30 PM EDT Routine [facility] OB [address] [place] [phone] Douglas Lewis, DO [address] [place], [facility]11 Nausea (Primary Dx); Third trimester ([facility]); 35 weeks gestation of ([facility]); Anxiety, generalized Social History Tobacco Use Types [...] documented in this encounter Progress Notes * Ingrid Villalta NP - 10/21/2024 1:30 PM EDT Reason for Appointment: Patient ID: [...] Active Ambulatory Problems Diagnosis Date Noted Depression 06/18/2023 Anemia 06/18/2023 Anxiety 06/18/2023 Recurrent nephrolithiasis 09/05/2016 Essential thrombocythemia (HCC) 06/18/2023 Gastric bypass status for obesity 08/10/2021 Gastroesophageal reflux disease 06/18/2023 Iron deficiency anemia secondary to inadequate dietary iron intake 08/10/2021 Insomnia 06/18/2023 22 weeks gestation of ([facility]) 07/16/2024 Second trimester ([facility]) 07/16/2024 Resolved Ambulatory Problems Diagnosis Date Noted [...] COSMETIC SURGERY 05/17/2020 [facility] [place] ELBOW SURGERY Left 2000 OTHER SURGICAL HISTORY 2014 kidney stent WRIST SURGERY Left 2000 REVIEW OF SYSTEMS Review of Systems: Review of Systems Constitutional: Negative. HENT: Positive for congestion. Patient reports recent congestion and allergy symptoms. She reports I haven't been hungry because of the congestion and this is causing nausea again. I have continued using the phenergan and I am about out Eyes: Negative. Respiratory: Negative. Cardiovascular: Negative. Gastrointestinal: [...] nursing note reviewed. Exam conducted with a tip inserter present. Vitals: Estimated body mass index is 33.35 kg/m?? as calculated from the following: Height as of 24: 5' 1 . Weight as of this encounter: 176 lb 8 oz. BP: 120/84 Patient's last menstrual period was 02/13/2024. ASSESSMENT & PLAN ICD-10-CM 1. Third trimester ([facility]) Z34.93 POCT urinalysis dipstick manually resulted CULTURE, GROUP B STREP WITH SUSCEPTIBLITY CULTURE, GROUP B STREP WITH SUSCEPTIBLITY 2. 35 weeks gestation of ([facility]) Z3A.35 Return OB: Patient presents today for a routine obstetrics appointment. Patient is currently 35w6d . Patient states she is doing well but has complaints of being tired due to current . Patient has verbalizes frequent movement. labor precautions was discussed/given and patient was instructed to perform kick counts three times a day. Orders Placed This Encounter Procedures CULTURE, GROUP B STREP WITH SUSCEPTIBLITY POCT urinalysis dipstick manually resulted Follow Up: Patient given a prescription for refill of phenergan and refill of PRN Buspar (1/2 tab) at night. Patient continues with NST/ BPP and doing well. Patient is to return to office in 1 week for routine OB appointment. Documented by Ingrid Villalta NP on behalf of: Douglas Lewis DO documented in this encounter Plan of Treatment Upcoming Encounters Date Type Department Care Team (Late st Contact Info) Description 11/04/2024 10:50 AM EDT Routine [facility] B[facility] OB [address] [place] [address] Douglas Lewis DO [address] [place] [address] documented as of this encounter Procedures Procedure Name Priority Date/Time Associated Diagnosis Comments POCT URINALYSIS DIPSTICK Routine 10/21/2024 2:12 PM EDT Third trimester ([facility]) CULTURE, GROUP B STREP WITH SUSCEPTIBLITY Routine 10/21/2024 1:52 PM EDT Third trimester ([facility]) documented in this encounter Results * (ABNORMAL) POCT urinalysis dipstick manually resulted (10/21/2024 2:12 PM EDT) Color, UA Yellow Clarity, UA Clear Glucose, UA Negative Negative - 2000(110) ++++ mg/dL Bilirubin, UA Negative Negative - 4(70) +++ mg/dL Ketones, UA Negative Negative - 160(16) ++++ mg/dL Spec Grav, UA 1.030 1 - 1.03 Blood, UA Negative Negative - 50 Liam/mcL pH, UA 6.0 5 - 9 Protein, UA Negative Negative - 2000(20) ++++ mg/dL Urobilinogen, UA 0.2 0.2 - 12 mg/dL Leukocytes, UA Positive Negative - 500+++ Mele/mcL Comment:small Nitrite, UA Negative Negative - Positive Urine 10/21/2024 2:12 PM EDT [employer] DO POINT OF CARE TEST ENTER/EDIT OR DERABLES Edited Result - Final * CULTURE, GROUP B STREP WITH SUSCEPTIBLITY (10/21/2024 1:52 PM EDT) Swab 10/21/2024 1:52 PM EDT [employer] DO LAB BLOOD ORDERABLES Final Resul t EXTERNAL LAB documented in this encounter Visit Diagnoses Diagnosis Nausea- Primary Nausea alone Third trimester ([facility]) state, incidental 35 weeks gestation of ([facility]) Anxiety, generalized documented in this encounter Care Teams Systems Lead Relationship Specialty Start Date End Date Xena Mccallum MD [address] [place] [address] PCP - General Family Medicine 09/04/22 Isabel Li NP [facility] 10/28/23 documented as of this encounter
--- OUTSIDE RECORDS SUMMARY | 2024-10-28 09:00 | XMS_ITS | Encounter Summary ---
Author Organization [facility] Address [address] [facility] [place] [address] Care Team Providers Care Sterile Products Processor Name Role Phone Xena Mccallum MD Primary Care Provider [phone] Isabel Li PERSONNEL ARBITRATOR Unavailable Reason for Visit * Reason Comments Routine Visit Encounter Details Date Type Department Care Team (Late Contact Info) Description 10/28/2024 9:00 AM EDT Routine [facility] BCP OB [address] [facility] [place] [address] Maddie Chan PA [address] [place], [place] [address] Third trimester ([facility]); 36 weeks gestation of ([facility]) Social History Tobacco Use Types Packs/Day [...] 08/10/2021 Insomnia 06/18/2023 22 weeks gestation of ([facility]) 07/16/2024 Second trimester ([facility]) 07/16/2024 Resolved Ambulatory Problems Diagnosis Date [...] COSMETIC SURGERY 05/17/2020 [facility] [place] ELBOW SURGERY Left 2000 OTHER SURGICAL HISTORY [...] Vitals: Estimated body mass index is 32.83 kg/m?? as calculated from the following: Height [...] AM EDT Routine [facility] BCP OB [address] [facility] [place] [phone] Douglas Lewis DO [address] [facility] [address] [place], [place] [id number] documented as of this encounter Visit Diagnoses Diagnosis Third trimester ([facility]) state, incidental 36 weeks gestation of ([facility]) documented in this encounter Care Teams Sterile Products Processor Relationship Specialty Start Date End Date Xena Mccallum MD [address] [place] [address] PCP - General Family Medicine 09/04/22 Isabel Li NP PCP - [facility] 10/28/23 documented as of this encounter
--- OUTSIDE RECORDS SUMMARY | 2024-11-04 08:16 | XMS_ITS | Clinical Summary ---
Author Organization [facility] Address [address] [place] [address] Care Team Providers Care Cleaning Handyman Name Role Phone Xena Hernandez MD Primary Care Provider [phone] Isabel Li CPA TAX Unavailable Allergies Active Allergy Reactions Criticality Noted [...] Date Diagnosed Date 22 weeks gestation of ([facility]) 2024 Second trimester ([facility]) 07/16/2024 Depression 06/18/2023 Anemia 06/18/2023 [...] BCP OB [address] [place] [address] Maddie Chan PA Third trimester ([facility]); 36 weeks gestation of ([facility]) 10/28/2024 Clinisync Result Encounter [facility] External Department Unsolicited Clinton Lewis DO 10/28/2024 Bamboo flowsheet [facility] [address] [place] [address] Maddie Chan PA 10/21/2024 1:30 PM EDT Routine [facility] OB [address] [place] [address] Clinton Lewis DO Nausea (Primary Dx); Third trimester ([facility]); 35 weeks gestation of ([facility]); Anxiety, generalized 10/21/2024 Clinisync Result Encounter [facility] External Department Unsolicited Provider, Generic External Data 10/21/2024 Bamboo flowsheet [facility] [address] [place] [address] Clinton Lewis DO 10/20/2024 Refill [facility] [address] [place] [address] Clinton Lewis DO Nausea; Mood changes 10/20/2024 Refill [facility] [address] [place] [address] Xena Hernandez MD Anxiety 10/14/2024 Clinisync Result Encounter [facility] External Department Unsolicited Provider, Generic External Data 10/07/2024 1:50 PM EDT Routine [facility] BCP OB [address] [place] [address] Clinton Lewis DO Third trimester ([facility]); 33 weeks gestation of ([facility]) 10/07/2024 Clinisync Result Encounter [facility] External Department Unsolicited Provider, Generic External Data 09/23/2024 11:30 AM EDT Routine [facility] BCP OB [address] [place] [address] Clinton Lewis DO 31 weeks gestation of ([facility]); Third trimester ([facility]) 09/23/2024 Bamboo flowsheet [facility] [address] [place] [address] Clinton Lewis DO 09/15/2024 11:30 AM EDT Ancillary Procedure [facility] [address] [place] [phone] History of gastric bypass 09/10/20[address] [facility] [address] [place] [address] Leticia Pina ND 09/09/[address] [facility] [address] [place] [phone] Leticia Pina MA 09/08/2024 9:20 AM EDT Routine [facility] [address] [place] [address] Clinton Lewis DO Third trimester ([facility]); 29 weeks gestation of ([facility]); History of gastric bypass; Mood changes 09/08/2024 Bamboo flowsheet [facility] [address] [place] [address] Clinton Lewis DO 08/13/2024 9:10 AM EDT Routine [facility] [address] [place] [address] Clinton Lewis DO Second trimester ([facility]); 26 weeks gestation of ([facility]); Nonintractable headache, unspecified chronicity pattern, unspecified headache type 08/13/2024 Bamboo flowsheet [facility] [address] [place] [address] Clinton Lewis DO from Last 3 Months [...] Description 11/04/2024 10:50 AM EDT Routine [facility] [address] [place] [phone] Clinton Lewis, DO [address] [place] [address] Health Maintenance Due Date Last Done Comments Influenza Vaccine (#1) 2024 05/03/2020, 2017, 02/21/2016 Procedures Procedure Name Priority Date/Time Associated Diagnosis Comments US OB BPP W NON-STRESS 10/28/2024 2:46 PM EDT US OB BPP W NON-STRESS 10/21/2024 4:12 PM EDT POCT URINALYSIS DIPSTICK Routine 10/21/2024 2:12 PM EDT Third trimester ([facility]) CULTURE, GROUP B STREP WITH SUSCEPTIBLITY Routine 10/21/2024 1:52 PM EDT Third trimester ([facility]) STREP GP B CULTURE+RFLX Routine 10/22/19 1:51 PM EDT US OB BPP W NON-STRESS 10/14/2024 9:51 AM EDT US OB BPP W NON-STRESS 10/07/2024 9:21 AM EDT POCT URINALYSIS DIPSTICK Routine 09/23/2024 11:52 AM EDT 31 weeks gestation of ([facility]) Third trimester ([facility]) US OB FOLLOW UP TRANSABDOMINAL APPROACH Routine 09/15/2024 12:02 PM EDT History of gastric bypass from Last 3 Months Results * US OB BPP W NON-STRESS (10/28/2024 2:46 PM EDT) Only the most recent of4 resultswithin the time period is included. Anatomical Region Laterality Modality Other 10/28/2024 2:46 PM EDT Narrative 10/28/2024 2:49 PM EDT [facility] [place] [id number] Ultrasound Report Signed Patient: TAN MARS MR#: [id number] : 1995 Acct:[id number] Age/Sex: 29 / F ADM Date: 10/28/24 Loc: US Attending Dr: Clinton Lewis D.O. Ordering Physician: Clinton Lewis D.O. Date of Service: 10/28/24 Procedure(s): US OB BPP w non-stress Accession Number(s): [id number] cc: XENA HERNANDEZ ; Clinton Lewis D.O. The [address] [address] Patient Name: TAN MARS MRN: [id number] date: 1995 Sex: F Assigned Patient Location: [facility] Current Patient Location: Accession/Order Number: [id number] Exam Date: 10/28/2024 14:44 Report Date: 10/28/2024 14:46 At the request of: CLINTON LEWIS DO Procedure: US OB BPP w non-stress Biophysical profile. Reason for exam: History of gastric bypass. COMPARISON: BPP 10/21/2024 TECHNIQUE: Transabdominal imaging of the gravid uterus was obtained. FINDINGS: Meters Superintendent reports a BPP of 8 out of 8. PATITO is normal at 23.7 cm. heart rate 145 bpm. US/US OB BPP w non-stress IMPRESSION: BPP 8 out of 8. Impression dictated by: Isac Becker Jr., D.O. 10/28/2024 2:46 PM Dictation Location: [place] [address] Electronically authenticated by: [id number] Y Date: 10/28/2024 14:46 Dictated By: Isac Becker M.D. Signed By: 10/28/24 1449 DD/ 1446 TD/TT: Buffing And Sueding Machine Operator: Procedure Note Radiology, Radiologist, - 10/28/2024 [facility] [place] [id number] Ultrasound Report Signed Patient: TAN MARS RMR#: [id number] : 1995Acct:[id number] Age/Sex: 29 / FADM Date: 10/28/24 Loc: US Attending Dr: Clinton Lewis D.O. Ordering Physician: Clinton Lewis D.O. Date of Service: 10/28/24 Procedure(s): US OB BPP w non-stress Accession Number(s): [id number] cc: XENA HERNANDEZ ; Clinton Lewis D.O. [place] [address] Patient Name: TAN MARS MRN: [id number] date: 1995 Sex: F Assigned Patient Location: [facility] Current Patient Location: Accession/Order Number: [id number] Exam Date: 10/28/2024 14:44 Report Date: 10/28/2024 14:46 At the request of: CLINTON LEWIS DO Procedure: US OB BPP w non-stress Biophysical profile. Reason for exam: History of gastric bypass. COMPARISON: BPP 10/21/2024 TECHNIQUE: Transabdominal imaging of the gravid uterus was obtained. FINDINGS: Meters Superintendent reports a BPP of 8 out of 8. PATITO is normal at 23.7cm. heart rate 145 bpm. US/US OB BPP w non-stress IMPRESSION: BPP 8 out of 8. Impression dictated by: Isac Becker Jr., D.O. 10/28/2024 2:46 PM Dictation Location: [place] [address] Electronically authenticated by: [id number] Y Date: 4:46 Dictated By: Isac Becker M.D. Signed By:10/28/24 1449 DD/ 144 TD/TT: Buffing And Sueding Machine Operator: us Clinton Lewis DO [facility] Final Result * (ABNORMAL) POCT [...] - Positive Urine 10/21/2024 2:12 PM EDT [facility] DO POINT OF CARE TEST ENTER/EDIT OR DERABLES Edited Result - Final * CULTURE, GROUP B STREP WITH SUSCEPTIBLITY (10/21/2024 1:52 PM EDT) Swab 10/21/2024 1:52 PM EDT [facility] DO LAB BLOOD ORDERABLES Final Resul t EXTERNAL LAB * STREP GP B CULTURE+RFLX (10/21/2024 1:51 PM EDT) STREP GP B CULTURE+RFLX Strep Gp B Culture+Rflx [facility] STREP GP B CULTURE+RFLX Negative [facility] STREP GP B CULTURE+RFLX Centers for Disease Control and Prevention (CDC) and [facility] STREP GP B CULTURE+RFLX [employer] [facility] STREP [...] [facility] STREP GP B CULTURE+RFLX Performed at: [facility] STREP GP B CULTURE+RFLX [address], [place] [id number] [facility] STREP GP B CULTURE+RFLX Store Host: Braulio Armstrong PhD, Phone: [phone] [facility] 10/21/2024 1:51 PM EDT 10/21/2024 9:04 PM EDT Narrative АНДРЕЙ - 10/26/2024 12:13 PM EDT us Generic External Data Provider LAB BLOOD ORDERAB LES Final Result [facility] * US OB follow up transabdominal approach [...] II, MD, PHD at 15-Sep-2024 10:59:56 PM [facility] Procedure Note Starr Palomino MD - [...] signed by STARR PALOMINO II, MD, PHD [id number] 10:59:56 PM [facility] us Clinton Lewis DO IMG OB US PROCEDURES Final Resul t from Last 3 Months Insurance BS Care Teams Cleaning Handyman Relationship Specialty Start Date End Date Xena Hernandez MD [address] [place] [address] PCP - General Family Medicine 09/04/22 Isabel Li NP PCP - [facility] 10/28/23
--- OUTSIDE RECORDS SUMMARY | 2024-11-04 08:16 | XMS_ITS | Encounter Summary ---
Author Organization [facility] Address [address] [facility] [place] [address] Care Team Providers Care Trimming Cutter Machine Name Role Phone Narinder Hernandez MD Primary Care Provider [phone] Narinder Hernandez MD Unavailable Isabel Li RN PICU Unavailable Encounter Details Date Type Department Care [...] 10:50 AM EDT Routine [facility] BCP OB [address] [place] [address] [place] [address] Clinton Lewis, DO [address] [place] [address] [place] [address] documented as of this encounter Procedures Procedure Name Priority Date/Time Associated Diagnosis Comments US PELVIS W/ TRANSVAGINAL 08/13/2023 2:53 PM EDT documented in this encounter Results * US PELVIS W/ TRANSVAGINAL (08/13/2023 2:53 PM EDT) Anatomical Region Laterality Modality Other 08/13/2023 2:53 PM EDT Narrative 08/13/2023 2:56 PM EDT [address] [address] Ultrasound Report Signed Patient: Tan Weiner MR#: [id number] : 1995 Acct:[id number] Age/Sex: 28 / F ADM Date: 08/13/23 Loc: [facility] Attending Dr: Clinton Lewis D.O. Ordering Physician: Clinton Lewis D.O. Date of Service: 08/13/23 Procedure(s): US pelvis w/ transvaginal Accession Number(s): [id number] cc: NARINDER HERNANDEZ ; Clinton Lewis D.O. The [address] [address] Patient Name: TAN WEINER MRN: [id number] date: 1995 Sex: F Assigned Patient Location: [facility] Current Patient Location: [facility] Accession/Order Number: [id number] Exam Date: 08/13/2023 11:33 Report Date: 08/13/2023 [...] Signed By: 08/13/23 1456 DD/ 1453 TD/TT: Agricultural Economist: Procedure Note Radiology, Radiologist, MD - 08/13/2023 [place] [address] Ultrasound Report Signed Patient: Tan Weiner R#: [id number] : 1995Acct:[id number] Age/Sex: 28 / FADM Date: 08/13/23 Loc: [facility] Attending Dr: Clinton Lewis D.O. Ordering Physician: Clinton Lewis D.O. Date of Service: 08/13/23 Procedure(s): US pelvis w/ transvaginal Accession Number(s): [id number] cc: NARINDER HERNANDEZ ; Clinton Lewis D.O. The [place] [id number] Patient Name: TAN WEINER MRN: [id number] date: 1995 Sex: F Assigned Patient Location: [facility] Current Patient Location: [facility] Accession/Order Number: [id number] Exam Date: 08/13/2023 11:33 Report Date: 08/13/2023 [...] M.D. Signed By:08/13/23 1456 DD/ 1453 TD/TT: Agricultural Economist: us Generic External Data Provider [facility] Final Result documented in this encounter Visit Diagnoses Not on filedocumented in this encounter Care Teams Trimming Cutter Machine Relationship Specialty Start Date End Date Narinder Hernandez MD [address] [place] [address] PCP - General Family Medicine 09/04/22 Narinder Hernandez MD [address] [place] [address] PCP - [facility] 07/29/23 Isabel Li NP PCP - [facility] 10/28/23 documented as of this encounter
--- OUTSIDE RECORDS SUMMARY | 2024-11-04 08:16 | XMS_ITS | Encounter Summary ---
Author Organization [facility] Address [address] [facility] [place] [address] Care Team Providers Care Package Liner Name Role Phone Xena Mccallum MD Primary Care Provider [phone] Xena Mccallum MD Unavailable Isabel Li NP Unavailable Encounter Details Date Type Department Care Team (Late st Contact Info) Description 07/22/2023 Abstract [facility] FNR [address] [place] [address] Isabel Li ANTENNA RIGGER Social History Tobacco Use Types Packs/Day Years [...] [address] [facility] [place] [address] Douglas Lewis DO [address] [place] [address] [place] [address] documented as of this encounter Visit Diagnoses Not on filedocumented in this encounter Care Teams Package Liner Relationship Specialty Start Date End Date Xena Mccallum MD [address] [place], [place] [id number] PCP - General Family Medicine 09/04/22 Xena Mccallum MD [address] [place], [place] [address] PCP - [facility] 07/29/23 Isabel Li NP PCP - [facility] 10/28/23 documented as of this encounter
--- OUTSIDE RECORDS SUMMARY | 2024-11-04 08:16 | XMS_ITS | Encounter Summary ---
Author Organization [facility] Address [address] [facility] [place] [address] Care Team Providers Care Net Lead Developer Name Role Phone Xena Mccallum MD Primary Care Provider [phone] Isabel Li DINKEY PRESS OPERATOR Unavailable Encounter Details Date Type Department Care Team (Late st Contact Info) Description 05/18/2024 Abstract [facility] OB [address] [place] [address] Douglas Lewis, DO [address] [place], [facility] [...] AM EDT Routine [facility] BCP OB [address] [facility] [place] [address] Douglas Lewis, DO [address] [facility] [place] [address] documented as of this encounter Visit Diagnoses Not on filedocumented in this encounter Care Teams Net Lead Developer Relationship Specialty Start Date End Date Xena Mccallum MD [address] [place] [address] PCP - General Family Medicine 09/04/22 Isabel Li NP PCP - [facility] 10/28/23 documented as of this encounter
--- OUTSIDE RECORDS SUMMARY | 2024-11-04 08:16 | XMS_ITS | Encounter Summary ---
Author Organization [facility] Address [address] [facility] [place] [address] Care Team Providers Care First Coat Operator Name Role Phone Xena Mccallum MD Primary Care Provider [phone] Isabel Li POULTRY PROCESSING SUPERVISOR Unavailable Encounter Details Date Type Department Care Team (Late st Contact Info) Description 10/21/2024 Bamboo flowsheet [facility] BCP OB [address] [place] [address] Douglas Lewis, DO [address] [facility] [address] [place], [id number] Social History Tobacco Use Types Packs/Day Years [...] AM EDT Routine [facility] BCP OB [address] [facility] [place] [address] Douglas Lewis, DO [address] [facility] [address] [place], [place] [id number] documented as of this encounter Visit Diagnoses Not on filedocumented in this encounter Care Teams First Coat Operator Relationship Specialty Start Date End Date Xena Mccallum MD [address] [place] [address] PCP - General Family Medicine 09/04/22 Isabel Li NP PCP - [facility] 10/28/23 documented as of this encounter
--- OUTSIDE RECORDS SUMMARY | 2024-11-04 08:16 | XMS_ITS | Encounter Summary ---
Author Organization [facility] Address [address] [facility] [place] [address] Care Team Providers Care Bus Analyst Name Role Phone Xena Mccallum MD Primary Care Provider [phone] Xena Mccallum MD Unavailable Isabel Li NP Unavailable Encounter Details Date Type Department Care Team (Late st Contact Info) Description 08/10/2023 Abstract [facility] FNR [address] [place] [address] Isabel Li BLACKSMITH HELPER Social History Tobacco Use Types Packs/Day Years [...] [address] [facility] [place] [address] Douglas Lewis DO [address] [place] [address] [place] [address] documented as of this encounter Visit Diagnoses Not on filedocumented in this encounter Care Teams Bus Analyst Relationship Specialty Start Date End Date Xena Mccallum MD [address] [place], [place] [id number] PCP - General Family Medicine 09/04/22 Xena Mccallum MD [address] [place], [place] [address] PCP - [facility] 07/29/23 Isabel Li NP PCP - [facility] 10/28/23 documented as of this encounter
--- OUTSIDE RECORDS SUMMARY | 2024-11-04 08:16 | XMS_ITS | Encounter Summary ---
Author Organization [facility] Address [address] [facility] [place] [address] Care Team Providers Care Conference Reservationist Name Role Phone Xena Mccallum MD Primary Care Provider [phone] Isabel Li LANDING GEAR MECHANIC Unavailable Encounter Details Date Type Department Care Team (Late st Contact Info) Description 10/28/2024 Bamboo flowsheet [facility] BCP OB [address] [place] [address] Maddie Chan PA [address] [facility] [address] [place], [facility] Social History Tobacco Use Types Packs/Day Years [...] AM EDT Routine [facility] BCP OB [address] [facility] [address] Douglas Lewis, DO [address] [facility] [address] [place], [place] [address] documented as of this encounter Visit Diagnoses Not on filedocumented in this encounter Care Teams Conference Reservationist Relationship Specialty Start Date End Date Xena Mccallum MD [address] [place] [address] PCP - General Family Medicine 09/04/22 Isabel Li NP PCP - [facility] 10/28/23 documented as of this encounter
--- OUTSIDE RECORDS SUMMARY | 2024-11-04 08:16 | XMS_ITS | Encounter Summary ---
Author Organization [facility] Address [address] [facility] [place] [address] Care Team Providers Care Resource Room Special Education Teacher Name Role Phone Narinder Hernandez MD Primary Care Provider Isabel Li COMPLIANCE ENGINEER Unavailable Encounter Details Date Type Department Care Team (Late st Contact Info) Description 10/28/2024 Clinisync Result Encounter [facility] External Department Unsolicited Clinton Lewis, DO [address] [facility] [place] [address] Social History Tobacco Use Types Packs/Day Years [...] AM EDT Routine [facility] BCP OB [address] [facility] [place] [address] Clinton Lewis DO [address] [place] [address] documented as of this encounter Procedures Procedure Name Priority Date/Time Associated Diagnosis Comments US OB BPP W NON-STRESS 10/28/2024 2:46 PM EDT documented in this encounter Results * US OB BPP W NON-STRESS (10/28/2024 2:46 PM EDT) Anatomical Region Laterality Modality Other 10/28/2024 2:46 PM EDT Narrative 10/28/2024 2:49 PM EDT [place] [id number] Ultrasound Report Signed Patient: TAN MARS MR#: [id number] : 1995 Acct:[id number] Age/Sex: 29 / F ADM Date: 10/28/24 Loc: US Attending Dr: Clinton Lewis D.O. Ordering Physician: Clinton Lewis D.O. Date of Service: 10/28/24 Procedure(s): US OB BPP w non-stress Accession Number(s): [id number] cc: NARINDER HERNANDEZ ; Clinton Lewis D.O. The [address] [address] Patient Name: TAN MARS MRN: [id number] date: 1995 Sex: F Assigned Patient Location: [facility] Current Patient Location: Accession/Order Number: [id number] Exam Date: 10/28/2024 14:44 Report Date: 10/28/2024 14:46 At the request of: CLINTON LEWIS DO Procedure: US OB BPP w non-stress Biophysical profile. Reason for exam: History of gastric bypass. COMPARISON: BPP 10/21/2024 TECHNIQUE: Transabdominal imaging of the gravid uterus was obtained. FINDINGS: Home Supervisor reports a BPP of 8 out of 8. PATITO is normal at 23.7 cm. heart rate 145 bpm. US/US OB BPP w non-stress IMPRESSION: BPP 8 out of 8. Impression dictated by: Isac Becker Jr., D.O. 10/28/2024 2:46 PM Dictation Location: [place] [address] Electronically authenticated by: [id number] Y Date: 10/28/2024 14:46 Dictated By: Isac Becker M.D. Signed By: 10/28/24 1449 DD/ 1446 TD/TT: Chairman Emeritus: Procedure Note Radiology, Radiologist, - 10/28/2024 [place] [address] Ultrasound Report Signed Patient: TAN MARS RMR#: [id number] : 1995Acct:[id number] Age/Sex: 29 FADM Date: 10/28/24 Loc: US Attending Dr: Clinton Lewis D.O. Ordering Physician: Clinton Lewis D.O. Date of Service: 10/28/24 Procedure(s): US OB BPP w non-stress Accession Number(s): [id number] cc: NARINDER HERNANDEZ ; Clinton Lewis D.O. The [place] [id number] Patient Name: TAN MARS MRN: [id number] date: 1995 Sex: F Assigned Patient Location: [facility] Current Patient Location: Accession/Order Number: [id number] Exam Date: 10/28/2024 14:44 Report Date: 10/28/2024 14:46 At the request of: CLINTON LEWIS DO Procedure: US OB BPP w non-stress Biophysical profile. Reason for exam: History of gastric bypass. COMPARISON: BPP 10/21/2024 TECHNIQUE: Transabdominal imaging of the gravid uterus was obtained. FINDINGS: Home Supervisor reports a BPP of 8 out of 8. PATITO is normal at 23.7cm. heart rate 145 bpm. US/US OB BPP w non-stress IMPRESSION: BPP 8 out of 8. Impression dictated by: Isac Becker Jr., D.O. 10/28/2024 2:46 PM Dictation Location: [facility] Electronically authenticated by: [id number] Y Date: 4:46 Dictated By: Isac Becker M.D. Signed By:10/28/24 1449 DD/ 1446 TD/TT: Chairman Emeritus: us Clinton Debbie DO [facility] Final Result documented in this encounter Visit Diagnoses Not on filedocumented in this encounter Care Teams Resource Room Special Education Teacher Relationship Specialty Start Date End Date Narinder Hernandez MD [address] [place] [address] PCP - General Family Medicine 09/04/22 Isabel Li NP PCP - [facility] 10/28/23 documented as of this encounter
--- OUTSIDE RECORDS SUMMARY | 2024-11-04 08:16 | XMS_ITS | Encounter Summary ---
Author Organization [facility] Address [address] [facility] [place] [address] Care Team Providers Care Job Coach Name Role Phone Narinder Hernandez MD Primary Care Provider [phone] Isabel Li NURSING CENTER TUTOR Unavailable Encounter Details Date Type Department Care [...] BCP OB [address] [place] [address] Clinton Lewis, DO [address] [facility] [place] [address] documented as of this encounter Procedures Procedure Name Priority Date/Time Associated Diagnosis Comments US OB BPP W NON-STRESS 10/21/2024 4:12 PM EDT STREP GP B CULTURE+RFLX Routine 10/21/2024 1:51 PM EDT documented in this encounter Results * US OB BPP W NON-STRESS (10/21/2024 4:12 PM EDT) Anatomical Region Laterality Modality Other 10/21/2024 4:12 PM EDT Narrative 10/21/2024 4:14 PM EDT The [place] [id number] Ultrasound Report Signed Patient: TAN MARS MR#: [id number] : 1995 Acct:[id number] Age/Sex: 29 / F ADM Date: 10/21/24 Loc: US Attending Dr: Clinton Lewis D.O. Ordering Physician: Clinton Lewis D.O. Date of Service: 10/21/24 Procedure(s): US OB BPP w non-stress Accession Number(s): [id number] cc: NARINDER HERNANDEZ ; Clinton Lewis D.O. The [address] [address] Patient Name: TAN MARS MRN: [id number] date: 1995 Sex: F Assigned Patient Location: US Current Patient Location: US Accession/Order Number: [id number] Exam Date: 10/21/2024 16:11 Report Date: 10/21/2024 16:12 At the request of: CLINTON LEWIS DO Procedure: US OB BPP w non-stress Biophysical profile. Reason for exam: History of gastric bypass. COMPARISON: BPP 10/14/2024. TECHNIQUE: Transabdominal imaging of the gravid uterus was obtained. FINDINGS: Metal Control Worker reports a BPP of 8 out of 8. PATITO is normal at 20.6 cm. heart rate 147 bpm. US/US OB BPP w non-stress IMPRESSION: BPP 8 out of 8. Impression dictated by: Isac Becker Jr., D.O. 10/21/2024 4:12 PM Dictation Location: [place] [address] Electronically authenticated by: [id number] Y Date: 10/21/2024 16:12 Dictated By: Isac Becker M.D. Signed By: 10/21/241613 DD/ 11 TD/TT: Mapping Specialist: Procedure Note Radiology, Radiologist, MD - 10/21/2024 [place] [address] Ultrasound Report Signed Patient: TAN MARS RMR#: [id number] : 1995Acct:[id number] Age/Sex: 29 / FADM Date: 10/21/24 Loc: US Attending Dr: Clinton Lewis D.O. Ordering Physician: Clinton Lewis D.O. Date of Service: 10/21/24 Procedure(s): US OB BPP w non-stress Accession Number(s): [id number] cc: NARINDER HERNANDEZ ; Clinton Lewis D.O. The [place] [address] Patient Name: TAN MARS MRN: [id number] date: 1995 Sex: F Assigned Patient Location: US Current Patient Location: US Accession/Order Number: [id number] Exam Date: 10/21/2024 16:11 Report Date: 10/21/2024 16:12 At the request of: CLINTON LEWIS DO Procedure: US OB BPP w non-stress Biophysical profile. Reason for exam: History of gastric bypass. COMPARISON: BPP 10/14/2024. TECHNIQUE: Transabdominal imaging of the gravid uterus was obtained. FINDINGS: Metal Control Worker reports a BPP of 8 out of 8. PATITO is normal at 20.6cm. heart rate 147 bpm. US/US OB BPP w non-stress IMPRESSION: BPP 8 out of 8. Impression dictated by: Isac Becker Jr., D.O. 10/21/2024 4:12 PM Dictation Location: [place] [address] Electronically authenticated by: [id number] Y Date: 6:12 Dictated By: Isac Becker M.D. Signed By:10/21/244 DD/ 11 TD/TT: Mapping Specialist: us Generic External Data Provider [facility] Final Result * STREP GP B CULTURE+RFLX (10/21/2024 1:51 PM EDT) STREP GP B CULTURE+RFLX Strep Gp B Culture+Rflx TBH STREP GP B CULTURE+RFLX Negative TBH STREP GP B CULTURE+RFLX Centers for Disease Control and Prevention (CDC) and [facility] STREP GP B CULTURE+RFLX [place] [employer] TBH STREP [...] TBH STREP GP B CULTURE+RFLX Performed at: [facility] STREP GP B CULTURE+RFLX [address] [place], [place] [id number] TBH STREP GP B CULTURE+RFLX Heat And Frost Insulator: Braulio Armstrong PhD, Phone: [phone] [facility] 10/21/2024 1:51 PM EDT 10/21/2024 9:04 PM EDT Narrative [facility] - 10/26/2024 12:13 PM EDT us Generic External Data Provider LAB BLOOD ORDERAB LES Final Result Performing Organization Address City/State/[facility] Co de Phone Number [facility] documented in this encounter Visit Diagnoses Not on filedocumented in this encounter Care Teams Job Coach Relationship Specialty Start Date End Date Narinder Hernandez MD [address] [place] [address] PCP - General Family Medicine 09/04/22 Isabel Li NP PCP - [facility] 10/28/23 documented as of this encounter
--- OUTSIDE RECORDS SUMMARY | 2024-11-04 08:16 | XMS_ITS | Encounter Summary ---
Author Organization [facility] Address [address] [facility] [place] [address] Care Team Providers Care Supervisor Building Maintenance Name Role Phone Narinder Hernandez MD Primary Care Provider [phone] Isabel iL LAB SPECIALIST Unavailable Encounter Details Date Type Department [...] OB [address] [place] [address] Clinton Lewis, DO [address] [facility] [place] [address] documented as of this encounter Procedures Procedure Name Priority Date/Time Associated Diagnosis Comments US OB TRANSVAGINAL 04/17/2024 11 :10 AM EST documented in this encounter Results * US OB TRANSVAGINAL (04/17/2024 11:10 AM EST) Anatomical Region Laterality Modality Other 04/17/2024 11:1 0 AM EST Narrative 04/17/2024 2:43 PM EST The [address] [address] Ultrasound Report Signed Patient: TAN MARS MR#: [id number] : 1995 Acct:[id number] Age/Sex: 29 / F ADM Date: 04/17/24 Loc: NOMS Attending Dr: Clinton Lewis D.O. Ordering Physician: Clinton Lewis D.O. Date of Service: 04/17/24 Procedure(s): US OB transvaginal Accession Number(s): [id number] cc: NARINDER HERNANDEZ ; Clinotn Lewis D.O. The [address] [address] Patient Name: TAN MARS MRN: [id number] date: 1995 Sex: F Assigned Patient Location: [facility] Current Patient Location: [facility] Accession/Order Number: [id number] Exam Date: 04/17/2024 09:28 Report Date: 04/17/2024 [...] Signed By: 04/17/24 1443 DD/ 1110 TD/TT: Brick Picker: Procedure Note Radiology, Radiologist, MD - 04/17/2024 [place] [address] Ultrasound Report Signed Patient: TAN MARS RMR#: [id number] : 1995Acct:[id number] Age/Sex: 29 / FADM Date: 04/17/24 Loc: NOMS Attending Dr: Clinton Lewis D.O. Ordering Physician: Clinton Lewis D.O. Date of Service: 04/17/24 Procedure(s): US OB transvaginal Accession Number(s): [id number] cc: NARINDER HERNANDEZ ; Clinton Lewis D.O. The [address] [id number] Patient Name: TAN MARS MRN: [facility]:[id number] date: 1995 Sex: F Assigned Patient Location: [facility] Current Patient Location[facility] Accession/Order Number: [id number] Exam Date: 04/17/2024 09:28 Report Date: 04/17/2024 [...] M.D. Signed By:04/17/24 1443 DD/ 1110 TD/TT: Brick Picker: us Generic External Data Provider [facility] Final Result documented in this encounter Visit Diagnoses Not on filedocumented in this encounter Care Teams Supervisor Building Maintenance Relationship Specialty Start Date End Date Narinder Hernandez MD [address] [place] [address] PCP - General Family Medicine 09/04/22 Isabel Li NP PCP - [facility] 10/28/23 documented as of this encounter
--- OUTSIDE RECORDS SUMMARY | 2024-11-04 08:16 | XMS_ITS | Encounter Summary ---
Author Organization [facility] Address [address] [facility] [place] [address] Care Team Providers Care Invertebrate Paleontologist Name Role Phone Xena Mccallum MD Primary Care Provider [phone] Isabel Li PHOSPHORIC ACID OPERATOR Unavailable Encounter Details Date Type Department Care Team (Late st Contact Info) Description 11/11/2023 Orders Only [facility] BCP OB [address] [place] [address] Maribell Peraza LPN [address] [facility] [id number] Social History Tobacco Use Types Packs/Day Years [...] AM EDT Routine [facility] BCP OB [address] [facility] [place] [address] Douglas Lewis [address] [place] [address] documented as of this encounter Procedures Procedure Name Priority Date/Time Associated Diagnosis Comments PAP SMEAR Routine 11/05/2023 12:00 AM EDT documented in this encounter Results * Pap Smear (11/05/2023 12:00 AM EDT) Swab Cervical swab / Unknown Debbie Nurse [facility] Bcp Ob LAB CYTOLOGY ORDERABLES Final Result EXTERNAL LAB documented in this encounter Visit Diagnoses Not on filedocumented in this encounter Care Teams Invertebrate Paleontologist Relationship Specialty Start Date End Date Xena Mccallum MD [address] [place] [address] PCP - General Family Medicine 09/04/22 Isabel Li NP PCP - [facility] 10/28/23 documented as of this encounter
--- NOTE | 2024-11-04 09:10 | US_ITS ---
The [address] [address] Patient Name: SAMREEN MARS MRN: [id number] date: 1995 Sex: F Assigned Patient Location: Current Patient Location: US Accession/Order Number: [id number] Exam Date: 11/04/2024 09:43 Report Date: 11/04/2024 09:44 At the request of: CLINTON GALLARDO DO Procedure: US OB BPP w non-stress BIOPHYSICAL PROFILE: CLINICAL INFORMATION: History of gastric bypass COMPARISON: 10/28/2024 There is a single live intrauterine gestation in cephalic presentation. The reported gestational age is 37 weeks 6 days. The heart rate measures 141 beats per minute. FINDINGS: TONE: 1 or more episodes of activity extension and flexion of extremity or opening and closing of the hand [Y] 2/2 GROSS BODY MOVEMENTS: 3 or more discrete body or limb movements [Y] 2/2 BREATHING MOVEMENTS: 1 or more episodes of breathing lasting at least 30 seconds [Y] 2/2 PATITO: A single deepest vertical pocket of amniotic fluid greater than 2 cm [Y] 2/2 PATITO: 21.7 cm. This is in upper normal range (95th percentile 23.9 cm) Total score: 8/8 US/ OB BPP w non-stress IMPRESSION: NORMAL BIOPHYSICAL PROFILE Impression dictated by: Thelma Morales M.D. 11/04/2024 9:44 AM Dictation Location: [place] [address] Electronically authenticated by: [id number] Y Date: 11/04/2024 09:44
[2024-11-04 09:27] VITALS: BP 133/74; PULSE 105
== END 2024-11-04 09:55 | disposition home or self-care (01) ==
LOC: US 08:18 → FBC 09:14
PROVIDERS: PCP Family Medicine; Visit Provider Obstetrics & Gynecology
DX: O26.893 Other specified pregnancy related conditions, third trimester (principal)
CPT/HCPCS: 76818

== ENCOUNTER 2024-11-11 08:58 | Outpatient (OUT) | payer BC, SELFPAY ==
--- NOTE | 2024-11-11 | US_ITS ---
The [address] [address] Patient Name: SAMREEN MARS MRN: [id number] date: 1995 Sex: F Assigned Patient Location: [facility] Current Patient Location: [facility] Accession/Order Number: [id number] Exam Date: 11/11/2024 10:06 Report Date: 11/11/2024 10:08 At the request of: CLINTON GALLARDO DO Procedure: US OB BPP w non-stress BIOPHYSICAL PROFILE: CLINICAL INFORMATION: History of gastric bypass Z98.84 COMPARISON: 11/04/2024 There is a single live intrauterine gestation in cephalic presentation. The reported gestational age is 38 weeks 6 days. The heart rate measures 147 beats per minute. FINDINGS: TONE: 1 or more episodes of activity extension and flexion of extremity or opening and closing of the hand [Y] 2/2 GROSS BODY MOVEMENTS: 3 or more discrete body or limb movements [Y] 2/2 BREATHING MOVEMENTS: 1 or more episodes of breathing lasting at least 30 seconds [Y] 0/2 PATITO: A single deepest vertical pocket of amniotic fluid greater than 2 cm [Y] 2/2 PATITO: 21.4 cm. This is in upper normal range. Total score: 6/8 US/ OB BPP w non-stress IMPRESSION: FAILED BIOPHYSICAL PROFILE WITH NO BREATHING OBSERVED Impression dictated by: Thelma Morales M.D. 11/11/2024 10:08 AM Dictation Location: [place] [address] Electronically authenticated by: [id number] Y Date: 11/11/2024 10:08
[2024-11-11 09:51] VITALS: BP 135/79; PULSE 77
--- NOTE | 2024-11-11 10:28 | PC.NURSE ---
1015: Patient requests SVE -states was having contractions hourly and lost mucus plug this morning and was damp feeling. No leaking of fluid since. SVE- closed and dry feeling- green/yellow mucus onexam glove. Informed if discharge becomes watery or panties wet- to return before scheduled c/section in the morning..verbalized understanding.
== END 2024-11-11 10:13 | disposition home or self-care (01) ==
LOC: US 08:58 → FBC 09:01
PROVIDERS: PCP Family Medicine; Visit Provider Obstetrics & Gynecology
DX: O26.893 Other specified pregnancy related conditions, third trimester (principal); Z3A.38 38 weeks gestation of pregnancy; O99.843 Bariatric surgery status complicating pregnancy, third trimester
CPT/HCPCS: 76818

== ENCOUNTER 2024-11-12 05:30 | Inpatient (IN) | payer BC, SELFPAY ==
[2024-11-12] VITALS (69 sets, daily range): BP systolic 118–158; BP diastolic 73–105; PULSE 64–86; TEMP 36.6–37; O2SAT 94–98
--- OUTSIDE RECORDS SUMMARY | 2024-11-12 05:43 | XMS_ITS | CCD ---
Author Organization [facility] Care Team Providers Care Rn Allergy Name Role Phone XENA MCCALLUM Primary Care [...] Provider Guillermo ALVARADO, Isabel Higgins Unavailable Guillermo MAGNETIC TESTER, Isabel R Unavailable DEBBIE, DOUGLAS Attending Unavailable DUSTIN, MADDIE Attending Unavailable DUSTIN, MADDIE Referring Unavailable DEBBIE, DOUGLAS Attending Unavailable DEBBIE, DOUGLAS Attending Unavailable DEBBIE, DOUGLAS Attending Unavailable MARY, XENA Bentley Attending Unavailable MARY, XENA Bentley Referring Unavailable DEBBIE, DOUGLAS Referring Unavailable DEBBIE, DOUGLAS Attending Unavailable DEBBIE, DOUGLAS Attending Unavailable DEBBIE, DOUGLAS Attending Unavailable DUSTIN, MADDIE Attending Unavailable DEBBIE, DOUGLAS Attending Unavailable Allergies Allergy Classification Reported Allergen(s) Allergy Type Date of Onset Reaction(s) Facility (20 sources) Clindamycin; Translations: [clindamycin] Drug Allergy 4 Swelling [facility] (3 sources) Penicillin; Translations: [penicillin] Drug Allergy Rash [facility] (2 sources) Clindamycin Drug Allergy 1 [facility] (1 source) Penicillins Drug allergy (disorder) 4 [facility] (20 sources) Lamotrigine Allergy to substance 4 [facility] (20 sources) Morphine Drug Allergy 4 Hives [facility] (20 sources) Penicillins Drug Allergy 6 Rash, Unknown [facility] Medications Current Medications Medication Drug Class(es) [...] Start Date: 03/22/21 Status: Ordered Calcium Carbonate (18 sources) take 1 tablet by mouth once daily Calcium Carbonate (CALCIUM 500 PO) Take 1 tablet by mouth Daily Active cephalexin 500 mg oral capsule (2 sources) Cephalosporin Antibacterial Start: 03-22-20 take 1 mg by mouth every twelve hours Keflex 500 mg Cap mg cap(s), Oral, q12hr, Refills(s) 0 Start Date: 03/22/21 Status: Ordered citalopram 20 mg oral tablet (20 sources) Serotonin Reuptake Inhibitor Start: 09-09-19 End: 10-21-19 take 1 tablet by mouth once daily citalopram (CeleXA) 20 MG tablet Indications: Mood changes Take 1 tablet (20 mg) by mouth Daily 30 tablet 11 10/20/2024 10/20/2025 Active ferrous sulfate 325 mg oral tablet (18 sources) take 1 tablet by mouth once daily Ferrous Sulfate (iron) 325 (65 Fe) MG tablet Take 1 tablet by mouth Daily Active magnesium oxide 400 mg oral tablet (18 sources) Start: 07-17-19 End: 09-24-19 take 1.5 tablets by mouth once daily [...] Status: Ordered MV-Min-Fe Fum-FA-DHA ( 1 PO) (18 sources) MV-Min-Fe Fum-FA-DHA ( 1 PO) Take 1 tablet by mouth Daily Active promethazine hydrochloride 12.5 mg oral tablet (20 sources) Phenothiazine Start: 10-20-2024 End: 11-04-2024 take 1 tablet by mouth every six hours as needed for nausea and vomiting and nausea and nausea promethazine (Phenergan) 12.5 MG tablet Indications: Nausea Take 1 tablet (12.5 mg) by mouth every 6 (six) hours if needed for nausea or vomiting for up to 30 doses Take 1 tablet by mouth every 6 hours as needed for nausea. 30 tablet 2 10/20/2024 Active Start: 08-03-2024 take 1 tablet by [...] mouth Daily 30 tablet 08/08/2023 09/23/2024 Discontinued Completed/Discontinued Medications Medication Drug Class(es) Dates Sig (Normalized) Sig (Original) cyclobenzaprine hydrochloride 5 mg oral tablet (20 sources) Muscle Relaxant Start: 09-11-2024 End: 11-04-2024 take 1 tablet by mouth twice daily as needed for muscle spasms cyclobenzaprine (Flexeril) 5 MG tablet Indications: Nonintractable headache, unspecified chronicity pattern, unspecified headache type , Cramp and spasm Take 1 tablet (5 mg) by mouth 2 (two) times a day as needed for muscle spasms 60 tablet 09/16/2024 11/04/2024 Discontinued Start: 08-03-2024 End: 09-02-2024 take 1 tablet by mouth in the morning cyclobenzaprine (Flexeril) 5 MG tablet Indications: Cramp and spasm Take 1 tablet (5 mg) by mouth in the morning and 1 tablet (5 mg) before bedtime. 60 tablet 08/03/2024 09/02/2024 Active Problems Active Problems Problem Classification Problem [...] [Emotional lability] 09-08-2024 Episodic Nausea and vomiting (4 sources) Nausea; Translations: [Nausea] 06-17-2024 Episodic Neoplasms [...] [36 weeks gestation of ] 10-28-2024 Episodic Residual codes; unclassified (2 sources) Gestation period, 35 weeks; Translations: [35 weeks gestation of ] 10-21-2024 Episodic Residual codes; unclassified (2 sources) Gestation period, 37 weeks; Translations: [37 weeks gestation of ] 11-04-2024 Episodic Spondylosis; intervertebral disc disorders; other back [...] 06-18-2023 Episodic Other aftercare (1 source) 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 Ordering Physician: Douglas Lewis D.O. Date of Service: 11/11/24 Procedure(s): US OB BPP w non-stress Accession Number(s): [id number] cc: XENA MCCALLUM ; Douglas Lewis D.O. [place] [id number] Patient Name: TAN MARS MRN: [facility]:[id number] date: 1995 Sex: F Assigned Patient Location: [facility] Current Patient Location: [facility] Accession/Order Number: [id number] Exam Date: 11/11/2024 10:06 Report Date: 11/11/2024 10:08 At the request of: DOUGLAS LEWIS DO Procedure: US OB BPP w non-stress BIOPHYSICAL PROFILE: CLINICAL INFORMATION: History of gastric bypass Z98.84 COMPARISON: 11/04/2024 There is a single live intrauterine gestation in cephalic presentation. The reported gestational age is 38 weeks 6 days. The heart rate measures 147 beats per minute. FINDINGS: TONE: 1 or more episodes of activity extension and flexion of extremity or opening and closing of the hand [Y] 2/2 GROSS BODY MOVEMENTS: 3 or more discrete body or limb movements [Y] 2/2 BREATHING MOVEMENTS: 1 or more episodes of breathing lasting at least 30 seconds [Y] 0/2 PATITO: A single deepest vertical pocket of amniotic fluid greater than 2 cm [Y] 2/2 PATITO: 21.4 cm. This is in upper normal range. Total score: 6/8 US/US OB BPP w non-stress IMPRESSION: FAILED BIOPHYSICAL PROFILE WITH NO BREATHING OBSERVED Impression dictated by: Thelma Morales M.D. 11/11/2024 10:08 AM Dictation Location: [place] [address] Electronically authenticated by: [id number] Y Date: 11/11/2024 10:08 Dictated By: Thelma Morales M.D. Signed By: 11/11/24 1010 DD/ 1008 TD/TT: Medication Nurse: [facility] Radiology, Radiologist, - 11/11/2024 [place] [address] Ultrasound Report Signed Patient: TAN MARS MR#: [id number] : 1995 Acct:[id number] Age/Sex: 29 / F ADM Date: 11/11/24 Loc: [facility] 256-[address]: Douglas Lewis D.O. Ordering Physician: Douglas Lewis D.O. Date of Service: 11/11/24 Procedure(s): US OB BPP w non-stress Accession Number(s): [id number] cc: XENA MCCALLUM ; Douglas Lewis D.O. [place] [id number] Patient Name: TAN MARS MRN: [facility]:[id number] date: 1995 Sex: F Assigned Patient Location: [facility] Current Patient Location: [facility] Accession/Order Number: [id number] Exam Date: 11/11/2024 10:06 Report Date: 11/11/2024 10:08 At the request of: DOUGLAS LEWIS DO Procedure: US OB BPP w non-stress BIOPHYSICAL PROFILE: CLINICAL INFORMATION: History of gastric bypass Z98.84 COMPARISON: 11/04/2024 There is a single live intrauterine gestation in cephalic presentation. The reported gestational age is 38 weeks 6 days. The heart rate measures 147 beats per minute. FINDINGS: TONE: 1 or more episodes of activity extension and flexion of extremity or opening and closing of the hand [Y] 2/2 GROSS BODY MOVEMENTS: 3 or more discrete body or limb movements [Y] 2/2 BREATHING MOVEMENTS: 1 or more episodes of breathing lasting at least 30 seconds [Y] 0/2 PATITO: A single deepest vertical pocket of amniotic fluid greater than 2 cm [Y] 2/2 PATITO: 21.4 cm. This is in upper normal range. Total score: 6/8 US/US OB BPP w non-stress IMPRESSION: FAILED BIOPHYSICAL PROFILE WITH NO BREATHING OBSERVED Impression dictated by: Thelma Morales M.D. 11/11/2024 10:08 AM Dictation Location: [place] [address] Electronically authenticated by: [id number] Y Date: 11/11/2024 10:08 Dictated By: Thelma Morales M.D. Signed By: 11/11/24 1010 DD/ 1008 TD/TT: Medication Nurse: [facility] Radiology Study observation (narrative) [facility] US OB BPP W NON-STRESS Ordered By: Radiologist Radiology on 11-11-2024 [facility] [employer] Work Phone: OB BPP W NON-STRESS on 11-04-2024 [place] [address] Ultrasound Report Signed Patient: TAN MARS MR#: [id number] : 1995 Acct:[id number] Age/Sex: 29 / F ADM Date: 11/04/24 Loc: [facility] 250-[address]: Douglas Lewis D.O. Ordering Physician: Douglas Lewis D.O. Date of Service: 11/04/24 Procedure(s): US OB BPP w non-stress Accession Number(s): [id number] cc: XENA MCCALLUM ; Douglas Lewis D.O. [address] [address] Patient Name: TAN MARS MRN: H:[id number] date: 1995 Sex: F Assigned Patient Location: Current Patient Location: US Accession/Order Number: [id number] Exam Date: 11/04/2024 09:43 Report Date: 11/04/2024 09:44 At the request of: DOUGLAS LEWIS DO Procedure: US OB BPP w non-stress BIOPHYSICAL PROFILE: CLINICAL INFORMATION: History of gastric bypass COMPARISON: 10/28/2024 There is a single live intrauterine gestation in cephalic presentation. The reported gestational age is 37 weeks 6 days. The heart rate measures 141 beats per minute. FINDINGS: TONE: 1 or [...] greater than 2 cm [Y] 2/2 PATITO: 21.7 cm. This is in upper normal range (95th percentile 23.9 cm) Total score: 8/8 US/US OB BPP w non-stress IMPRESSION: NORMAL BIOPHYSICAL PROFILE Impression dictated by: Thelma Morales M.D. 11/04/2024 9:44 AM Dictation Location: [place] [address] Electronically authenticated by: [id number] Y Date: 11/04/2024 09:44 Dictated By: Thelma Morales M.D. Signed By: 11/04/24946 DD/ 3 TD/TT: Medication Nurse: [facility] Radiology, Radiologist, MD - 11/04/2024 [place] [address] Ultrasound Report Signed Patient: TAN MARS MR#: [id number] : 1995 Acct:[id number] Age/Sex: 29 / F ADM Date: 11/04/24 Loc: [facility] [address]: Douglas Lewis D.O. Ordering Physician: Douglas Lewis D.O. Date of Service: 11/04/24 Procedure(s): US OB BPP w non-stress Accession Number(s): [id number] cc: XENA MCCALLUM ; Douglas Lewis D.O. The [address] [address] Patient Name: TAN MARS MRN: [facility]:[id number] date: 1995 Sex: F Assigned Patient Location: Current Patient Location: US Accession/Order Number: [id number] Exam Date: 11/04/2024 09:43 Report Date: 11/04/2024 09:44 At the request of: DOUGLAS LEWIS DO Procedure: US OB BPP w non-stress BIOPHYSICAL PROFILE: CLINICAL INFORMATION: History of gastric bypass COMPARISON: 10/28/2024 There is a single live intrauterine gestation in cephalic presentation. The reported gestational age is 37 weeks 6 days. The heart rate measures 141 beats per minute. FINDINGS: TONE: 1 or [...] greater than 2 cm [Y] 2/2 PATITO: 21.7 cm. This is in upper normal range (95th percentile 23.9 cm) Total score: 8/8 US/US OB BPP w non-stress IMPRESSION: NORMAL BIOPHYSICAL PROFILE Impression dictated by: Thelma Morales M.D. 11/04/2024 9:44 AM Dictation Location: [place] [address] Electronically authenticated by: [id number] Y Date: 11/04/2024 09:44 Dictated By: Thelma Morales M.D. Signed By: 11/04/24946 DD/ 3 TD/TT: Medication Nurse: [facility] Radiology Study observation (narrative) [facility] US OB BPP W NON-STRESS Ordered By: Radiologist Radiology on 11-04-2024 [facility] Work Phone: Urinalysis macro (dipstick) panel (U)on 11-04-2024 Bilirubin, UA Negative Negative - 4(70) +++ mg/dL [facility] Blood, UA Negative Negative - 50 Liam/mcL [facility] Clarity, UA Clear [facility] Color, UA Yellow [facility] Glucose, UA Negative Negative - 2000(110) ++++ mg/dL [facility] Interpretation and review of laboratory results Abnormal [facility] Ketones, UA Negative Negative - 160(16) ++++ mg/dL [facility] Leukocytes, UA Negative Negative - 500+++ Mele/mcL [facility] Nitrite, UA Negative Negative - Positive [facility] pH, UA 6 5 - 9 [facility] Protein, UA Trace Negative - 2000(20) ++++ mg/dL [facility] Spec Grav, UA 1.025 1 - 1.03 [facility] Urobilinogen, UA 1.0 0.2 - 12 mg/dL [facility] No Panel InformationOrdered By: Jordyn Smith on 10-28-2024 [facility] US OB BPP W NON-STRESS on 10-28-[address] [address] Ultrasound Report Signed Patient: TAN MARS MR#: [id number] : 1995 Acct:[id number] Age/Sex: 29 / F ADM Date: 10/28/24 Loc: US Attending Dr: Douglas Lewis D.O. Ordering Physician: Douglas Lewis D.O. Date of Service: 10/28/24 Procedure(s): US OB BPP w non-stress Accession Number(s): [id number] cc: XENA MCCALLUM ; Douglas Lewis D.O. The [address] [address] Patient Name: TAN MARS MRN: [facility]:[id number] date: 1995 Sex: F Assigned Patient Location: [facility] Current Patient Location: Accession/Order Number: [id number] Exam Date: 10/28/2024 14:44 Report Date: 10/28/2024 14:46 At the request of: DOUGLAS LEWIS DO Procedure: US OB BPP w non-stress Biophysical profile. Reason for exam: History of gastric bypass. COMPARISON: BPP 10/21/2024 TECHNIQUE: Transabdominal imaging of the gravid uterus was obtained. FINDINGS: Terminal Superintendent reports a BPP of 8 out of 8. PATITO is normal at 23.7 cm. heart rate 145 bpm. US/US OB BPP w non-stress IMPRESSION: BPP 8 out of 8. Impression dictated by: Isac Becker Jr., D.O. 10/28/2024 2:46 PM Dictation Location: [place] [address] Electronically authenticated by: [id number] Y Date: 10/28/2024 14:46 Dictated By: Isac Becker M.D. Signed By: 10/28/24 1449 DD/ 1446 TD/TT: Medication Nurse: [facility] Radiology, Radiologist, - 10/28/2024 The [place] [id number] Ultrasound Report Signed Patient: TAN MARS MR#: [id number] : 1995 Acct:[id number] Age/Sex: 29 / F ADM Date: 10/28/24 Loc: US Attending Dr: Douglas Lewis D.O. Ordering Physician: Douglas Lewis D.O. Date of Service: 10/28/24 Procedure(s): US OB BPP w non-stress Accession Number(s): [id number] cc: XENA MCCALLUM ; Douglas Lewis D.O. [place] [address] Patient Name: TAN MARS MRN: [id number] date: 1995 Sex: F Assigned Patient Location: [facility] Current Patient Location: Accession/Order Number: [id number] Exam Date: 10/28/2024 14:44 Report Date: 10/28/2024 14:46 At the request of: DOUGLAS LEWIS DO Procedure: US OB BPP w non-stress Biophysical profile. Reason for exam: History of gastric bypass. COMPARISON: BPP 10/21/2024 TECHNIQUE: Transabdominal imaging of the gravid uterus was obtained. FINDINGS: Terminal Superintendent reports a BPP of 8 out of 8. PATITO is normal at 23.7 cm. heart rate 145 bpm. US/US OB BPP w non-stress IMPRESSION: BPP 8 out of 8. Impression dictated by: Isac Becker Jr., D.O. 10/28/2024 2:46 PM [facility] Electron[facility] authenticated by: [id number] Y Date: 10/28/2024 14:46 Dictated By: Isac Becker M.D. Signed By: 10/28/24 1449 DD/ 45 TD/TT: Medication Nurse: [facility] Radiology Study observation (narrative) [facility] US OB BPP W NON-STRESS Ordered By: Radiologist Radiology on 10-28-2024 [facility] Work Phone: US OB BPP W NON-STRESS on 10-21-[address] [address] Ultrasound Report Signed Patient: TAN MARS MR#: [id number] : 1995 Acct:[id number] Age/Sex: 29 / F ADM Date: 10/21/24 Loc: US Attending Dr: Douglas Lewis D.O. Ordering Physician: Douglas Lewis D.O. Date of Service: 10/21/24 Procedure(s): US OB BPP w non-stress Accession Number(s): [id number] cc: XENA MCCALLUM ; Douglas Lewis D.O. The [place] [id number] Patient Name: TAN MARS MRN: [facility]:[id number] date: 1995 Sex: F Assigned Patient Location: US Current Patient Location: US Accession/Order Number: [id number] Exam Date: 10/21/2024 16:11 Report Date: 10/21/2024 16:12 At the request of: DOUGLAS LEWIS DO Procedure: US OB BPP w non-stress Biophysical profile. Reason for exam: History of gastric bypass. COMPARISON: BPP 10/14/2024. TECHNIQUE: Transabdominal imaging of the gravid uterus was obtained. FINDINGS: Terminal Superintendent reports a BPP of 8 out of 8. PATITO is normal at 20.6 cm. heart rate 147 bpm. US/US OB BPP w non-stress IMPRESSION: BPP 8 out of 8. Impression dictated by: Isac Becker Jr., D.O. 10/21/2024 4:12 PM Dictation Location: [place] [address] Electronically authenticated by: [id number] Y Date: 10/21/2024 16:12 Dictated By: Isac Becker M.D. Signed By: 10/21/24 161 DD/ 161 TD/TT: Medication Nurse: [facility] Radiology, Radiologist, - 10/21/[address] [address] Ultrasound Report Signed Patient: TAN MARS MR#: [id number] : 1995 Acct:[id number] Age/Sex: 29 / F ADM Date: 10/21/24 Loc: US Attending Dr: Douglas Lewis D.O. Ordering Physician: Douglas Lewis D.O. Date of Service: 10/21/24 Procedure(s): US OB BPP w non-stress Accession Number(s): [id number] cc: XENA MCCALLUM ; Douglas Lewis D.O. The [address] [address] Patient Name: TAN MARS MRN: [facility]:[id number] date: 1995 Sex: F Assigned Patient Location: US Current Patient Location: US Accession/Order Number: [id number] Exam Date: 10/21/2024 16:11 Report Date: 10/21/2024 16:12 At the request of: DOUGLAS LEWIS DO Procedure: US OB BPP w non-stress Biophysical profile. Reason for exam: History of gastric bypass. COMPARISON: BPP 10/14/2024. TECHNIQUE: Transabdominal imaging of the gravid uterus was obtained. FINDINGS: Terminal Superintendent reports a BPP of 8 out of 8. PATITO is normal at 20.6 cm. heart rate 147 bpm. US/US OB BPP w non-stress IMPRESSION: BPP 8 out of 8. Impression dictated by: Isac Becker Jr., D.O. 10/21/2024 4:12 PM Dictation Location: [place] [address] Electronically authenticated by: [id number] Y Date: 10/21/2024 16:12 Dictated By: Isac Becker M.D. Signed By: 10/21/241613 DD/ 11 TD/TT: Medication Nurse: [facility] Radiology Study observation (narrative) [facility] US OB BPP W NON-STRESS Ordered By: Radiologist Radiology on 10-21-2024 [facility] Work Phone: Urinalysis macro (dipstick) panel (U)on 10-21-2024 Bilirubin, UA Negative Negative - 4(70) +++ mg/dL [facility] Blood, UA Negative Negative - 50 Liam/mcL [facility] Clarity, UA Clear [facility] Color, UA Yellow [facility] Glucose, UA Negative Negative - 1999(110) ++++ mg/dL [facility] Interpretation and review of laboratory results Abnormal [facility] Ketones, UA Negative Negative - 160(16) ++++ mg/dL [facility] Leukocytes, UA Positive Negative - 500+++ Mele/mcL [facility] Comment on above: small Nitrite, UA Negative Negative - Positive [facility] pH, UA 6 5 - 9 [facility] Protein, UA Negative Negative - 1999(20) ++++ mg/dL [facility] Spec Grav, UA 1.03 1 - 1.03 [facility] Urobilinogen, UA 0.2 0.2 - 12 mg/dL [facility] US OB BPP W NON-STRESS on 10-14-2024 [place] [address] Ultrasound Report Signed Patient: TAN MARS MR#: [id number] : 1995 Acct:[id number] Age/Sex: 29 / F ADM Date: 10/14/24 Loc: US Attending Dr: Douglas Lewis D.O. Ordering Physician: Douglas Lewis D.O. Date of Service: 10/14/24 Procedure(s): US OB BPP w non-stress Accession Number(s): [id number] cc: XENA MCCALLUM ; Douglas Lewis D.O. [address] [address] Patient Name: TAN MARS MRN: [id number] date: 1995 Sex: F Assigned Patient Location: [facility] Current Patient Location: Accession/Order Number: [id number] Exam Date: 10/14/2024 09:47 Report Date: 10/14/2024 [...] Morales M.D. 10/14/2024 9:51 AM Dictation Location: [place] [address] Electronically authenticated by: [id number] Y Date: 10/14/2024 09:51 Dictated By: Thelma Morales M.D. Signed By: 10/14/24 0954 DD/ 0951 TD/TT: Medication Nurse: [facility] Radiology, Radiologist, - 10/14/2024 [place] [address] Ultrasound Report Signed Patient: TAN MARS MR#: [id number] : 1995 Acct:[id number] Age/Sex: 29 / F ADM Date: 10/14/24 Loc: US Attending Dr: Douglas Lewis D.O. Ordering Physician: Douglas Lewis D.O. Date of Service: 10/14/24 Procedure(s): US OB BPP w non-stress Accession Number(s): [id number] cc: XENA MCCALLUM ; Douglas Lewis D.O. The [place] [id number] Patient Name: TAN MARS MRN: [id number] date: 1995 Sex: F Assigned Patient Location: [facility] Current Patient Location: Accession/Order Number: [id number] Exam Date: 10/14/2024 09:47 Report Date: 10/14/2024 [...] Morales M.D. 10/14/2024 9:51 AM Dictation Location: [place] [address] Electronically authenticated by: [id number] Y Date: 10/14/2024 09:51 Dictated By: Thelma Morales M.D. Signed By: 10/14/24 0954 DD/ TD/TT: Medication Nurse: [facility] Radiology Study observation (narrative) [facility] US OB BPP W NON-STRESS Ordered By: Radiologist Radiology on 10-14-2024 [facility] Work Phone: US OB BPP W NON-STRESS on 10-07-[address] [address] Ultrasound Report Signed Patient: TAN MARS MR#: [id number] : 1995 Acct:[id number] Age/Sex: 29 / F ADM Date: 10/07/24 Loc: US Attending Dr: Douglas Lewis D.O. Ordering Physician: Douglas Lewis D.O. Date of Service: 10/07/24 Procedure(s): US OB BPP w non-stress Accession Number(s): [id number] cc: XENA MCCALLUM ; Douglas Lewis D.O. The [place] [id number] Patient Name: TAN MARS MRN: [id number] date: 1995 Sex: F Assigned Patient Location: [facility] Current Patient Location: Accession/Order Number: [id number] Exam Date: 10/07/2024 09:20 Report Date: 10/07/2024 [...] Morales M.D. 10/07/2024 9:21 AM Dictation Location: [place] [address] Electronically authenticated by: [id number] Y Date: 10/07/2024 09:21 Dictated By: Thelma Morales M.D. Signed By: 10/07/24923 DD/ 0 TD/TT: Medication Nurse: [facility] Radiology, Radiologist, - 10/07/2024 [place] [address] Ultrasound Report Signed Patient: TAN MARS MR#: [id number] : 1995 Acct:[id number] Age/Sex: 29 / F ADM Date: 10/07/24 Loc: US Attending Dr: Douglas Lewis D.O. Ordering Physician: Douglas Lewis D.O. Date of Service: 10/07/24 Procedure(s): US OB BPP w non-stress Accession Number(s): [id number] cc: XENA MCCALLUM ; Douglas Lewis D.O. The [place] [address] Patient Name: TAN MARS MRN: [facility]:[id number] date: 1995 Sex: F Assigned Patient Location: [facility] Current Patient Location: Accession/Order Number: [id number] Exam Date: 10/07/2024 09:20 Report Date: 10/07/2024 [...] Morales M.D. 10/07/2024 9:21 AM Dictation Location: [place] [address] Electronically authenticated by: [id number] Y Date: 10/07/2024 09:21 Dictated By: Thelma Morales M.D. Signed By: 10/07/24923 DD/ 0 TD/TT: Medication Nurse: [facility] Radiology Study observation (narrative) [facility] US OB BPP W NON-STRESS Ordered By: Radiologist Radiology on 10-07-2024 [facility] Work Phone: Urinalysis macro (dipstick) panel (U)on 09-23-2024 Bilirubin, UA Negative Negative - 4(70) +++ mg/dL [facility] Blood, UA Negative Negative - 50 Liam/mcL [facility] Clarity, UA Clear [facility] Color, UA Yellow [facility] Glucose, UA Negative Negative - 2000(110) ++++ mg/dL [facility] Interpretation and review of laboratory results Abnormal [facility] Ketones, UA Negative Negative - 160(16) ++++ mg/dL [facility] Leukocytes, UA Trace Negative - 500+++ Mele/mcL [facility] Nitrite, UA Negative Negative - Positive [facility] pH, UA 7.5 5 - 9 [facility] Protein, UA Negative Negative - 2000(20) ++++ mg/dL [facility] Spec Grav, UA 1.02 1 - 1.03 [facility] Urobilinogen, UA 0.2 0.2 - 12 mg/dL [facility] US OB FOLLOW UP TRANSABDOMIN AL APPROACHon [...] II, MD, PHD at 15-Sep-2024 10:59:56 PM [facility] Normal Not Available Comment on above: Order Comment: US OB SCAN FOR GROWTH Estimated Date of Delivery: 11/19/24 Gestational Age as of 09/08/2024: 29w5d [facility] CMP (CMP) (FOR REMOTE FH C USE)on 07-22-2024 Albumin [Mass/Vol] 2.9 g/dL Low 3.4 - 5.0 g/dL [facility] ALBUMIN GLOBULIN RATIO 0.7 NO [facility] ALP [Catalytic activity/Vol] 72 U/L 46 - 116 U/L [facility] ALT [Catalytic activity/Vol] 17 U/L 14 - 59 U/L [facility] Anion gap [Moles/Vol] 11.3 mmol/L NO [facility] AST [Catalytic activity/Vol] 17 U/L 15 - 37 U/L [facility] Bilirubin [Mass/Vol] 0.2 mg/dL 0.2 - 1 .0 mg/dL [facility] Calcium [Mass/Vol] 8.5 mg/dL 8.5 - 10. 1 mg/dL [facility] Chloride [Moles/Vol] 104 mmol/L 98 - 10 7 mmol/L [facility] CO2 [Moles/Vol] 25.6 mmol/L 21.0 - 32.0 mmol/L [facility] Creatinine [Mass/Vol] 0.49 mg/dL Low 0.55 - 1.02 mg/dL [facility] GFR/1.73 sq M.predicted CKD-EPI (S/P/Bld) [Vol rate/Area] >60 >=60 mL/min/1.73m 2 [facility] Globulin (S) [Mass/Vol] 4.1 g/dL [facility] Glucose [Mass/Vol] 85 mg/dL 74 - 106 mg/dL [facility] Interpretation and review of laboratory results Abnormal [facility] Potassium [Moles/Vol] 3.9 mmol/L 3.5 - 5.1 mmol/L [facility] Protein [Mass/Vol] 7 g/dL 6.4 - 8.2 g/dL [facility] Sodium [Moles/Vol] 137 mmol/L 136 - 145 mmol/L [facility] TBH EGFR-NON AF TURKS AND CAIC[place] ISLANDER >60 >=60 mL/min/1.73m 2 [facility] Urea nitrogen [Mass/Vol] 10 mg/dL 7.0 - 18.0 mg/dL [facility] Urea nitrogen/Creatinine [Mass ratio] 20.4 mg/mg [facility] [employer] BILIRUBIN, DIRECTon Bilirubin.indirect [Mass/Vol] mg/dL 0.0 - 0.2 mg/dL [facility] No Panel Informationon 07-[address] [facility] Urinalysis macro (dipstick) panel (U)on 07-16-2024 Bilirubin, UA Negative Negative - 4(70) +++ mg/dL [facility] Blood, UA Negative Negative - 50 Liam/mcL [facility] Clarity, UA Cloudy [facility] Color, UA Yellow [facility] Glucose, UA 1+ Negative - 1999(110) ++++ mg/dL [facility] Comment on above: 500mg Interpretation and review of laboratory results Abnormal [facility] Ketones, UA Positive Negative - 160(16) ++++ mg/dL [facility] Comment on above: trace Leukocytes, UA Trace Negative - 500+++ Mele/mcL [facility] Nitrite, UA Negative Negative - Positive [facility] pH, UA 7 5 - 9 [facility] Protein, UA Negative Negative - 2000(20) ++++ mg/dL [facility] Spec Grav, UA 1.015 1 - 1.03 [facility] Urobilinogen, UA 0.2 0.2 - 12 mg/dL [facility] US OB 14+ WEEKS ANATOMY SCAN on [...] II, MD, PHD at 11-Jul-2024 06:17:29 PM [facility] Normal Not Available Comment on above: Order Comment: US OB ANATOMY SINGLE W US OB CERVICAL LENGTH Estimated Date of Delivery: 11/19/24 Gestational Age as of 06/17/2024: 17w6d Urinalysis macro (dipstick) panel (U)on 06-17-2024 Bilirubin, UA Negative Negative - 4(70) +++ mg/dL [facility] Blood, UA Negative Negative - 50 Liam/mcL [facility] Clarity, UA Clear [facility] Color, UA Yellow [facility] Glucose, UA Negative Negative - 1999(110) ++++ mg/dL [facility] Interpretation and review of laboratory results Abnormal [facility] Ketones, UA Negative Negative - 160(16) ++++ mg/dL [facility] Leukocytes, UA Positive Negative - 500+++ Mele/mcL [facility] Comment on above: small Nitrite, UA Negative Negative - Positive [facility] pH, UA 7 5 - 9 [facility] Protein, UA Positive Negative - 1999(20) ++++ mg/dL [facility] Comment on above: 30 mg Spec Grav, UA 1.015 1 - 1.03 [facility] Urobilinogen, UA 0.2 0.2 - 12 mg/dL [facility] Urinalysis macro (dipstick) panel (U)on 05-20-2024 Bilirubin, UA Negative Negative - 4(70) +++ mg/dL [facility] Blood, UA Negative Negative - 50 Liam/mcL [facility] Clarity, UA Clear [facility] Color, UA Yellow [facility] Glucose, UA Negative Negative - 1999(110) ++++ mg/dL [facility] Interpretation and review of laboratory results Normal [facility] Ketones, UA Negative Negative - 160(16) ++++ mg/dL [facility] Leukocytes, UA Negative Negative - 500+++ Mele/mcL [facility] Nitrite, UA Negative Negative - Positive [facility] pH, UA 5.5 5 - 9 [facility] Protein, UA Negative Negative - 1999(20) ++++ mg/dL [facility] Spec Grav, UA 1.03 1 - 1.03 [facility] Urobilinogen, UA 0.2 0.2 - 12 mg/dL [facility] BOX TESTon 05-11-2024 BOX TEST SENT OUT [facility] BOX1 [facility] BOX2 05/11/2024 [facility] BOX [facility] HCG ( test) Ql (U)o n 04-17-2024 Interpretation and review of laboratory results Abnormal [facility] Preg Test, Ur Positive Negative [facility] Urinalysis macro (dipstick) panel (U)on 04-17-2024 Bilirubin, UA Negative Negative - 4(70) +++ mg/dL [facility] Blood, UA Negative Negative - 50 Liam/mcL [facility] Clarity, UA Clear [facility] Color, UA Yellow [facility] Glucose, UA Negative Negative - 1999(110) ++++ mg/dL [facility] Interpretation and review of laboratory results Normal [facility] Ketones, UA Negative Negative - 160(16) ++++ mg/dL [facility] Leukocytes, UA Negative Negative - 500+++ Mele/mcL [facility] Nitrite, UA Negative Negative - Positive [facility] pH, UA 6.5 5 - 9 [facility] Protein, UA Negative Negative - 1999(20) ++++ mg/dL [facility] Spec Grav, UA 1.02 1 - 1.03 [facility] Urobilinogen, UA 0.2 0.2 - 12 mg/dL [facility] ALL CBC WITH AUTO DIFFon BASOPHILS ABSOLUTE AUTO 0.1 [facility] Basophils/100 WBC (Bld) 0.6 % 0.2 - 2.0 % [facility] Eosinophils/100 WBC (Bld) 0.9 % 0.9 - 7.0 % [facility] Erythrocyte distribution width (RBC) [Ratio] 12.4 % 11.0 - 15.0 % [facility] Hematocrit (Bld) [Volume fraction] 43.7 % 36.0 - 48.0 % [facility] Hemoglobin (Bld) [Mass/Vol] 14.4 g/dL 12.0 - 16.0 g/dL [facility] IMMATURE GRANULOCYTES ABS AUTO 0.03 [facility] Immature granulocytes/100 WBC (Bld) 0.3 % 0.0 - 0.5 % [facility] Interpretation and review of laboratory results Abnormal [facility] LYMPHOCYTES ABSOLUTE AUTO 4.[address] [facility] Lymphocytes/100 WBC (Bld) 38.1 % 20.5 - 60.0 % [facility] MCH (RBC) [Entitic mass] 28.5 pg 26.7 - 34.[address] [facility] MCHC (RBC) [Mass/Vol] 33.0 g/dL 29.9 - 35.2 g/dL [facility] MCV (RBC) [Entitic vol] 86.4 fL 81.0 - 99.[address] [facility] MONOCYTES ABSOLUTE AUTO 0.7 [facility] Monocytes/100 WBC (Bld) 6.2 % 1.7 - 12.0 % [facility] NEUTROPHILS ABSOLUTE AUTO 5.9 [facility] Neutrophils/100 WBC (Bld) 53.9 % 43.0 - 75.0 % [facility] Platelet mean volume (Bld) [Entitic vol] 9.8 fL 9.5 - 13.[address] [facility] TBH EO # 0.1 [facility] PLT 430 [facility] RBC 5.06 [facility] WBC 11.0 [facility] CT ABDOMEN PELVIS WO IV CONT Luzmaria [...] report is generated using voice recognition reporting ([employer]). On occasion [employer] erroneously drops words from the report or replaces the spoken word with similar sounding words. Please call with any questions/concerns regarding this report.* Dictated and transcribed 01/17/2024/anna Preliminary report sent to [facility] on 01/17/2024 at 9:45 a.m. Nikkie confirmed doctor has report in hand. This report has been electronically signed and approved by the interpreting radiologist. Electronically Signed Ab Retana M.D. 2024-01-17 11:31:48 Normal Not Available Comment on above: Order Comment: PEKVI C PAIN, PRESSURE, HEMATURIA, HX KIDNEY STONES Bacteria identified Cx Nom ( U)on 01-11-2024 Appearance (U) Adequate [facility] Internal identifier for Provider [id number] [facility] Healthcare Specimen source Nom (Unsp spec) URINE [facility] Healthcare STATUS FINAL [facility] Laboratory - Microbiology an d Antimicrobial susceptibilityon 01-11-2024 Bacteria identified Cx Nom (U) SEE NOTE [facility] Comment on above: Less than 10,000 CFU/mL of single Gram negative organism isolated. No further testing will be performed. If clinically indicated, recollection using a method to minimize contamination, with prompt transfer to Urine Culture Transport Tube, is recommended. Laboratory - Miscellaneous t estson 01-11-2024 Service comment (Unsp spec) [Interp] [facility] Comment on above: This urine was sanju zed for the presence of WBC, RBC, bacteria, casts, and other formed elements. Only those elements seen were reported. No Panel Informationon 01-10 Performing Organization Information Site ID: QPT Name: [employer] [facility] Address: Gumaro Salcedo , [address] [place] [id number] Director: Brenden Conde MD [facility] Urinalysis complete panel (U )on 01-11-2024 Appearance (U) CLEAR CLEAR [facility] Bacteria LM.HPF (Urine sed) [#/Area] NONE SEEN NONE SEEN /HPF [facility] Bilirubin Ql (U) Negative NEGATIVE [facility] Color (U) YELLOW YELLOW [facility] Epithelial cells.squamous LM.HPF (Urine sed) [#/Area] 0-5 < OR = 5 /HPF [facility] Glucose Ql (U) Negative NEGATIVE [facility] Hemoglobin Ql (U) Negative NEGATIVE [facility] Hyaline casts (Urine sed) [#/Area] NONE SEEN NONE SEEN /LPF [facility] Interpretation and review of laboratory results Abnormal [facility] Ketones Ql (U) Negative NEGATIVE [facility] Leukocyte esterase Test strip Ql (U) 1+ Abnormal NEGATIVE [facility] Nitrite Ql (U) Negative NEGATIVE [facility] pH (U) 7.0 [pH] 5.0 - 8.0 [facility] Protein Ql (U) Negative NEGATIVE [facility] RBC LM.HPF (Urine sed) [#/Area] 3-10 Abnormal < OR = 2 /HPF [facility] Specific gravity (U) [Rel density] 1.015 1.001 - 1.035 [facility] WBC LM.HPF (Urine sed) [#/Area] 0-5 < OR = 5 /HPF [facility] Urinalysis macro (dipstick) panel (U)on 01-09-2024 Bilirubin, UA Negative Negative - 4(70) +++ mg/dL [facility] Blood, UA Positive Negative - 50 Liam/mcL [facility] Clarity, UA Clear [facility] Color, UA Light Yellow [facility] Glucose, UA Negative Negative - 2000(110) ++++ mg/dL [facility] Interpretation and review of laboratory results Abnormal [facility] Ketones, UA Negative Negative - 160(16) ++++ mg/dL [facility] Leukocytes, UA 1+ Negative - 500+++ Mele/mcL [facility] Nitrite, UA Negative Negative - Positive [facility] pH, UA 6.0 5 - 9 [facility] Protein, UA Trace Negative - 1999(20) ++++ mg/dL [facility] Spec Grav, UA 1.020 1 - 1.03 [facility] Urobilinogen, UA 1.0 0.2 - 12 mg/dL [facility] Physician Orderon 03-26-2023 Physician Order [id number] #[id number] Normal [facility] Formson 09-13-2022 Forms [id number] #[id number]:[id number] [facility] XR KUB 1 VIEWon 04-09-2022 XR [...] by: GENARO RODRÍGUEZ Date: 2022-04-09 18:02 Normal [facility] VITAMIN B1 (THIAMINE)on Vit. B1, Whole Blood 117.7 nmol/L Normal 66.5-200.0 [facility] Comment on above: Performed By: #### C VDTBH #### [facility] [address] [address] [address] Kerrie Russell CBC AUTO DIFFon 02-28-2022 BASO # 0.1 103/ul Normal 0.0-0.1 [facility] Comment on above: Performed By: #### C BC #### [facility] [address] [address] [address] Kerrie Russell Basophils/100 WBC (Bld) 0.6 % Normal 0.2-2.0 [facility] Comment on above: Performed By: #### C BC #### [facility] [address] [place] [address] Dr. Kerrie Russell EO # 0.1 103/ul Normal 0.0-0.7 [facility] Comment on above: Performed By: #### C BC #### [facility] [address] [place] [address] Dr. Kerrie Russell Eosinophils/100 WBC (Bld) 1.3 % Normal 0.9-7.0 [facility] Comment on above: Performed By: #### C BC #### [facility] [address] [place] [address] Dr. Kerrie Russell Erythrocyte distribution width (RBC) [Ratio] 13.2 % Normal 11.0-15.0 [facility] Comment on above: Performed By: #### C BC #### [facility] [address] [place] [address] Dr. Kerrie Russell Hematocrit (Bld) [Volume fraction] 40.6 % Normal 36.0-48.0 [facility] Comment on above: Performed By: #### C BC #### [facility] [address] [place] [address] Dr. Kerrie Russell Hemoglobin (Bld) [Mass/Vol] 13.8 g/dL Normal 12.0-16.0 [facility] Comment on above: Performed By: #### C BC #### [facility] [address] [place] [address] Dr. Kerrie Russell IG # 0.02 10e3/ul Normal 0.00-0.03 [facility] Comment on above: Performed By: #### C BC #### [facility] [address] [place] [address] Dr. Kerrie Russell IG % 0.2 % Normal 0.0-0.5 [facility] Comment on above: Performed By: #### C BC #### [facility] [address] [place] [address] Dr. Kerrie Russell LYMPH # 4.3 103/ul Critically high 1.2-3.8 [facility] Comment on above: Performed By: #### C BC #### [facility] [address] [place] [address] Dr. Kerrie Russell Lymphocytes/100 WBC (Bld) 49.2 % Normal 20.5-60.0 [facility] Comment on above: Performed By: #### C BC #### [facility] [address] [place] [address] Dr. Kerrie Russell MANUAL DIFF REQ NO Normal [facility] Comment on above: Performed By: #### C BC #### [facility] [address] [place] [address] Dr. Kerrie Russell MCH (RBC) [Entitic mass] 28.3 pg Normal 26.7-34.0 [facility] Comment on above: Performed By: #### C BC #### [facility] [address] [place] [address] Dr. Kerrie Russell MCHC (RBC) [Mass/Vol] 34.0 g/dL Normal 29.9-35.2 [facility] Comment on above: Performed By: #### C BC #### [facility] [address] [place] [address] Dr. Kerrie Russell MCV (RBC) [Entitic vol] 83.2 fL Normal 81.0-99.0 [facility] Comment on above: Performed By: #### C BC #### [facility] [address] [place] [address] Dr. Kerrie Russell MONO # 0.5 103/ul Normal 0.3-0.8 [facility] Comment on above: Performed By: #### C BC #### [facility] [address] [place] [address] Dr. Kerrie Russell Monocytes/100 WBC (Bld) 5.9 % Normal 1.7-12.0 [facility] Comment on above: Performed By: #### C BC #### [facility] [address] [place] [address] Dr. Kerrie Russell NEUT # 3.7 103/ul Normal 1.4-6.5 [facility] Comment on above: Performed By: #### C BC #### [facility] [address] [address] [address] Kerrie Russell Neutrophils/100 WBC (Bld) 42.8 % Critically low 43.0-75.0 [facility] Comment on above: Performed By: #### C BC #### [facility] [address] [address] [address] Kerrie Russell Platelet mean volume (Bld) [Entitic vol] 9.6 fL Normal 9.5-13.5 [facility] Comment on above: Performed By: #### C BC #### [facility] [address] [address] [address] Kerrie Russell PLT 403 103/ul Normal 150-450 [facility] Comment on above: Performed By: #### C BC #### [facility] [address] [place] [address] Dr. Kerrie Russell RBC 4.88 106/ul Normal 4.20-5.40 [facility] Comment on above: Performed By: #### C BC #### [facility] [address] [place] [address] Dr. Kerrie Russell WBC 8.7 103/ul Normal 4.0-11.0 [facility] Comment on above: Performed By: #### C BC #### [facility] [address] [place] [address] Dr. Kerrie Russell FERRITINon 02-28-2022 Ferritin [Mass/Vol] 73.0 ng/mL Normal 6.2-137.0 [facility] Comment on above: Performed By: #### P HOS, MG, CMP #### [facility] [address] [place] [address] Dr. Kerrie Russell IRON AND TIBCon 02-28-2022 % SATURATION 12.4 % Normal [facility] Comment on above: Performed By: #### P HOS, MG, CMP #### [facility] [address] [place] [address] Dr. Kerrie Russell Iron [Mass/Vol] 44.0 ug/dL Critically low 50.0-170.0 [facility] Comment on above: Performed By: #### P HOS, MG, CMP #### [facility] [address] [place] [address] Dr. Kerrie Russell TIBC DIRECT 354.0 ug/dL Normal 250.0-450.0 [facility] Comment on above: Performed By: #### P HOS, MG, CMP #### [facility] [address] [place] [address] Dr. Kerrie Russell MAGNESIUMon 02-28-2022 Magnesium [Mass/Vol] 1.9 mg/dL Normal 1.8-2.4 [facility] Comment on above: Performed By: #### M G PHOS, CMP #### [facility] [address] [place] [address] Dr. Kerrie Russell PHOSPHORUSon 02-28-2022 Phosphate [Mass/Vol] 3.7 mg/dL Normal 2.6-4.7 [facility] Comment on above: Performed By: #### M Daisha PHOS, CMP #### [facility] [address] [place] [address] Dr. Kerrie Russell PROF 14(COMP METB)on 022 Albumin [Mass/Vol] 3.9 g/dL Normal 3.4-5.0 [facility] Comment on above: Performed By: #### M Daisha PHOS, CMP #### [facility] [address] [place] [address] Dr. Kerrie Russell Albumin/Globulin [Mass ratio] 1.1 {ratio} Normal [facility] Comment on above: Performed By: #### M Daisha PHOS, CMP #### [facility] [address] [place] [address] Dr. Kerrie Russell ALP [Catalytic activity/Vol] 99 U/L Normal 46-116 [facility] Comment on above: Performed By: #### M Daisha PHOS, CMP #### [facility] [address] [place] [address] Dr. Kerrie Russell ALT [Catalytic activity/Vol] 32 U/L Normal 14-59 [facility] Comment on above: Performed By: #### M Daisha PHOS, CMP #### [facility] [address] [address] [address] Kerrie Russell Anion gap [Moles/Vol] 9.3 mmol/L Normal [facility] Comment on above: Performed By: #### M SUZANNE Ashton, CMP #### [facility] [address] [address] [address] Kerrie Russell AST [Catalytic activity/Vol] 17 U/L Normal 15-37 [facility] Comment on above: Performed By: #### M SUZANNE Ashton, CMP #### [facility] [address] [place] [address] Dr. Kerrie Russell Bilirubin [Mass/Vol] 0.2 mg/dL Normal 0.2-1.0 [facility] Comment on above: Performed By: #### M SUZANNE Ashton, CMP #### [facility] [address] [place] [address] Dr. Kerrie Russell Calcium [Mass/Vol] 8.5 mg/dL Normal 8.5-10.1 [facility] Comment on above: Performed By: #### M SUZANNE Ashton, CMP #### [facility] [address] [address] [address] Kerrie Russell Chloride [Moles/Vol] 107 mmol/L Normal 98-107 [facility] Comment on above: Performed By: #### M SUZANNE Ashton, CMP #### [facility] [address] [place] [address] Dr. Kerrie Russell CO2 [Moles/Vol] 27.0 mmol/L Normal 21.0-32.0 [facility] Comment on above: Performed By: #### Bryan Ashton PHOS, CMP #### [facility] [address] [place] [address] Dr. Kerrie Russell Creatinine [Mass/Vol] 0.65 mg/dL Normal 0.55-1.02 [facility] Comment on above: Performed By: #### Bryan Ashton PHOS, CMP #### [facility] [address] [place] [address] Dr. Kerrie Russell EGFR-AF TURKS AND CAICOS ISLANDER >60 Normal >=60 [facility] Comment on above: Performed By: #### M Daisha, PHOS, CMP #### [facility] [address] [address] [address] Kerrie Russell EGFR-NON AF TURKS AND CAICOS ISLANDER >60 Normal >=60 [facility] Comment on above: Performed By: #### M G, PHOS, CMP #### [facility] [address] [address] [address] Kerrie Russell Globulin (S) [Mass/Vol] 3.6 g/dL Normal [facility] Comment on above: Performed By: #### M G, PHOS, CMP #### [facility] [address] [address] [address] Kerrie Russell Glucose [Mass/Vol] 89 mg/dL Normal 74-106 [facility] Comment on above: Performed By: #### M Daisha, PHOS, CMP #### [facility] [address] [address] [address] Kerrie Russell Potassium [Moles/Vol] 3.3 mmol/L Critically low 3.5-5.1 [facility] Comment on above: Performed By: #### M Daisha PHOS, CMP #### [facility] [address] [address] [address] Kerrie Russell Protein [Mass/Vol] 7.5 g/dL Normal 6.4-8.2 [facility] [place] [facility] Comment on above: Performed By: #### M Daisha, PHOS, CMP #### [facility] [address] [address] [address] Kerrie Russell Sodium [Moles/Vol] 140 mmol/L Normal 136-145 [facility] [place] [facility] Comment on above: Performed By: #### M Daisha, PHOS, CMP #### [facility] [address] [address] [address] Kerrie Russell Urea nitrogen [Mass/Vol] 9.0 mg/dL Normal 7.0-18.0 [facility] Comment on above: Performed By: #### M G, PHOS, CMP #### [facility] [address] [address] [address] Kerrie Russell Urea nitrogen/Creatinine [Mass ratio] 13.8 mg/mg Normal [facility] Comment on above: Performed By: #### M G, PHOS, CMP #### [facility] [address] [address] [address] Kerrie Russell VIT B12 AND FOLATEon 022 Cobalamin (Vitamin B12) [Mass/Vol] 538.0 pg/mL Normal 193.0-986.0 [facility] Comment on above: Performed By: #### P HOS, MG, CMP #### [facility] [address] [address] [address] Kerrie Russell FOLATE 8.50 ng/mL Critically low 8.60-58.90 [facility] Comment on above: Performed By: #### P HOS, MG, CMP #### [facility] [address] [place] [address] Dr. Kerrie Russell VITAMIN D 25 OHon 02-28-2022 VIT D 25-OH 33.0 ng/mL Normal [facility] Comment on above: Performed By: #### P HOS, MG, CMP #### [facility] [address] [place] [address] Dr. Kerrie Russell VIT D RANGES SEE BELOW Normal [facility] Comment on above: Result Comment: <20 ng/mL Vit D deficient 20 - <30 ng/mL Vit D insufficient 30 - 100 ng/mL Vit D sufficient >100 ng/mL Potential Toxicity Performed By: #### P HOS, MG, CMP #### [facility] [address] [place] [address] Dr. Kerrie Russell Covid-19 PCR (CVDTB)on SARS-CoV-2 (COVID-19) RNA DEZ+probe Ql (Unsp spec) Not detected Normal NOT DETECTED [facility] Comment on above: Result Comment: This test is not yet approved or cleared by the [place] FDA. When there are no FDA-approved or cleared tests available, and other criteria are met, FDA can make tests available under an emergency access mechanism called an Emergency Use Authorization (EUA). The EUA for this test is supported by the [employer] Tender of Health and Human Service's (HHS's) declaration [...] SARS-CoV-2. Performed By: #### C VDTBH #### [facility] [address] [place] [address] Dr. Kerrie Russell Covid-19 PCR ([facility])on SARS-CoV-2 (COVID-19) RNA DEZ+probe Ql (Unsp spec) Not detected Normal NOT DETECTED [facility] Comment on above: Result Comment: This test is not yet approved or cleared by the [place] FDA. When there are no FDA-approved or cleared tests available, and other criteria are met, FDA can make tests available under an emergency access mechanism called an Emergency Use Authorization (EUA). The EUA for this test is supported by the [employer] Tender of Health and Human Service's (HHS's) declaration [...] By: #### P HOS, MG, CMP #### [facility] [address] [place] [address] Dr. Kerrie Rusesll VITAMIN B1 (THIAMINE)on 07-29 Vit. B1, Whole Blood 118.6 nmol/L Normal 66.5-200.0 [facility] Comment on above: Performed By: #### C VDTBH #### [facility] [address] [place] [address] Dr. Kerrie Russell CBC AUTO DIFFon 08-11-2021 BASO # 0.0 103/ul Normal 0.0-0.1 [facility] Comment on above: Performed By: #### P HOS, MG, CMP #### [facility] [address] [place] [address] Dr. Kerrie Russell Basophils/100 WBC (Bld) 0.3 % Normal 0.2-2.0 [facility] Comment on above: Performed By: #### P HOS, MG, CMP #### [facility] [address] [place] [address] Dr. Kerrie Russell EO # 0.1 103/ul Normal 0.0-0.7 [facility] Comment on above: Performed By: #### P HOS, MG, CMP #### [facility] [address] [place] [address] Dr. Kerrie Russell Eosinophils/100 WBC (Bld) 1.5 % Normal 0.9-7.0 [facility] Comment on above: Performed By: #### P HOS, MG, CMP #### [facility] [address] [place] [address] Dr. Kerrie Russell Erythrocyte distribution width (RBC) [Ratio] 15.9 % Critically high 11.0-15.0 [facility] Comment on above: Performed By: #### P HOS, MG, CMP #### [facility] [address] [place] [address] Dr. Kerrie Russell Hematocrit (Bld) [Volume fraction] 34.2 % Critically low 36.0-48.0 [facility] Comment on above: Performed By: #### P HOS, MG, CMP #### [facility] [address] [place] [address] Dr. Kerrie Russell Hemoglobin (Bld) [Mass/Vol] 10.1 g/dL Critically low 12.0-16.0 [facility] Comment on above: Performed By: #### P HOS, MG, CMP #### [facility] [address] [address] [address] Kerrie Russell IG # 0.03 10e3/ul Normal 0.00-0.03 [facility] Comment on above: Performed By: #### P HOS, MG, CMP #### [facility] [address] [place] [address] Dr. Kerrie Russell IG % 0.3 % Normal 0.0-0.5 [facility] Comment on above: Performed By: #### P HOS, MG, CMP #### [facility] [address] [place] [address] Dr. Kerrie Russell LYMPH # 3.3 103/ul Normal 1.2-3.8 [facility] Comment on above: Performed By: #### P HOS, MG, CMP #### [facility] [address] [place] [address] Dr. Kerrie Russell Lymphocytes/100 WBC (Bld) 37.2 % Normal 20.5-60.0 [facility] Comment on above: Performed By: #### P HOS, MG, CMP #### [facility] [address] [place] [address] Dr. Kerrie Russell MANUAL DIFF REQ NO Normal [facility] Comment on above: Performed By: #### P HOS, MG, CMP #### [facility] [address] [place] [address] Dr. Kerrie Russell MCH (RBC) [Entitic mass] 20.7 pg Critically low 26.7-34.0 [facility] Comment on above: Performed By: #### P HOS, MG, CMP #### [facility] [address] [place] [address] Dr. Kerrie Russell MCHC (RBC) [Mass/Vol] 29.5 g/dL Critically low 29.9-35.2 [facility] Comment on above: Performed By: #### P HOS, MG, CMP #### [facility] [address] [place] [address] Dr. Kerrie Russell MCV (RBC) [Entitic vol] 70.1 fL Critically low 81.0-99.0 [facility] Comment on above: Performed By: #### P HOS, MG, CMP #### [facility] [address] [address] [address] Kerrie Russell MONO # 0.6 103/ul Normal 0.3-0.8 [facility] Comment on above: Performed By: #### P HOS, MG, CMP #### [facility] [address] [place] [address] Dr. Kerrie Russell Monocytes/100 WBC (Bld) 7.3 % Normal 1.7-12.0 [facility] Comment on above: Performed By: #### P HOS, MG, CMP #### [facility] [address] [place] [address] Dr. Kerrie Russell NEUT # 4.7 103/ul Normal 1.4-6.5 [facility] Comment on above: Performed By: #### P HOS, MG, CMP #### [facility] [address] [place] [address] Dr. Kerrie Russell Neutrophils/100 WBC (Bld) 53.4 % Normal 43.0-75.0 [facility] Comment on above: Performed By: #### P HOS, MG, CMP #### [facility] [address] [place] [address] Dr. Kerrie Russell Platelet mean volume (Bld) [Entitic vol] 9.1 fL Critically low 9.5-13.5 [facility] Comment on above: Performed By: #### P HOS, MG, CMP #### [facility] [address] [place] [address] Dr. Kerrie Russell PLT 339 103/ul Normal 150-450 [facility] Comment on above: Performed By: #### P HOS, MG, CMP #### [facility] [address] [place] [address] Dr. Kerrie Russell RBC 4.88 106/ul Normal 4.20-5.40 [facility] Comment on above: Performed By: #### P HOS, MG, CMP #### [facility] [address] [place] [address] Dr. Kerrie Russell WBC 8.8 103/ul Normal 4.0-11.0 [facility] Comment on above: Performed By: #### P HOS, MG, CMP #### [facility] [address] [place] [address] Dr. Kerrie Russell FERRITINon 08-11-2021 Ferritin [Mass/Vol] 4.0 ng/mL Critically low 6.2-137.0 [facility] Comment on above: Performed By: #### C VDTBH #### [facility] [address] [place] [address] Dr. Kerrie Russell IRON AND TIBCon 08-11-2021 % SATURATION 3.7 % Normal [facility] Comment on above: Performed By: #### C VDTBH #### [facility] [address] [place] [address] Dr. Kerrie Russell Iron [Mass/Vol] 19.0 ug/dL Critically low 37.0-170.0 [facility] Comment on above: Performed By: #### C VDTBH #### [facility] [address] [place] [address] Dr. Kerrie Russell TIBC DIRECT 513.0 ug/dL Critically high 261.0-497.0 [facility] [place] [facility] Comment on above: Performed By: #### C VDTBH #### [facility] [address] [place] [address] Dr. Kerrie Russell MAGNESIUMon 08-11-2021 Magnesium [Mass/Vol] 2.0 mg/dL Normal 1.6-2.3 [facility] Comment on above: Performed By: #### P HOS, MG, CMP #### [facility] [address] [place] [address] Dr. Kerrie Russell PHOSPHORUSon 08-11-2021 Phosphate [Mass/Vol] 4.8 mg/dL Critically high 2.5-4.5 [facility] Comment on above: Performed By: #### P HOS, MG, CMP #### [facility] [address] [place] [address] Dr. Kerrie Russell PROF 14(COMP METB)on 022 Albumin [Mass/Vol] 3.8 g/dL Normal 3.4-5.0 [facility] [place] [facility] Comment on above: Performed By: #### P HOS, MG, CMP #### [facility] [address] [address] [address] Kerrie Russell Albumin/Globulin [Mass ratio] 0.9 {ratio} Normal [facility] Comment on above: Performed By: #### P HOS, MG, CMP #### [facility] [address] [address] [address] Kerrie Russell ALP [Catalytic activity/Vol] 74 U/L Normal 46-116 [facility] Comment on above: Performed By: #### P HOS, MG, CMP #### [facility] [address] [address] [address] Kerrie Russell ALT [Catalytic activity/Vol] 15 U/L Normal 14-59 [facility] Comment on above: Performed By: #### P HOS, MG, CMP #### [facility] [address] [address] [address] Krerie Russell Anion gap [Moles/Vol] 13.3 mmol/L Normal [facility] Comment on above: Performed By: #### P HOS, MG, CMP #### [facility] [address] [address] [address] Kerrie Russell AST [Catalytic activity/Vol] 11 U/L Critically low 15-37 [facility] Comment on above: Performed By: #### P HOS, MG, CMP #### [facility] [address] [address] [address] Kerrie Russell Bilirubin [Mass/Vol] 0.2 mg/dL Normal 0.2-1.3 [facility] Comment on above: Performed By: #### P HOS, MG, CMP #### [facility] [address] [address] [address] Kerrie Russell Calcium [Mass/Vol] 8.3 mg/dL Critically low 8.5-10.1 [facility] Comment on above: Performed By: #### P HOS, MG, CMP #### [facility] [address] [address] [address] Kerrie Russell Chloride [Moles/Vol] 104 mmol/L Normal 98-107 [facility] Comment on above: Performed By: #### P HOS, MG, CMP #### [facility] [address] [place] [address] Dr. Kerrie Russell CO2 [Moles/Vol] 26.5 mmol/L Normal 22.0-30.0 [facility] Comment on above: Performed By: #### P HOS, MG, CMP #### [facility] [address] [place] [address] Dr. Kerrie Russell Creatinine [Mass/Vol] 0.60 mg/dL Normal 0.52-1.04 [facility] Comment on above: Performed By: #### P HOS, MG, CMP #### [facility] [address] [place] [address] Dr. Kerrie Russell EGFR-AF TURKS AND CAICOS ISLANDER >60 Normal >=60 [facility] Comment on above: Performed By: #### P HOS, MG, CMP #### [facility] [address] [place] [address] Dr. Kerrie Russell EGFR-NON AF TURKS AND CAICOS ISLANDER >60 Normal >=60 [facility] Comment on above: Performed By: #### P HOS, MG, CMP #### [facility] [address] [place] [address] Dr. Kerrie Russell Globulin (S) [Mass/Vol] 4.1 g/dL Normal [facility] Comment on above: Performed By: #### P HOS, MG, CMP #### [facility] [address] [place] [address] Dr. Kerrie Russell Glucose [Mass/Vol] 93 mg/dL Normal 74-106 [facility] Comment on above: Performed By: #### P HOS, MG, CMP #### [facility] [address] [place] [address] Dr. Kerrie Russell Potassium [Moles/Vol] 3.8 mmol/L Normal 3.4-5.0 [facility] Comment on above: Performed By: #### P HOS, MG, CMP #### [facility] [address] [place] [address] Dr. Kerrie Russell Protein [Mass/Vol] 7.9 g/dL Normal 6.1-8.2 [facility] [place] [facility] Comment on above: Performed By: #### P HOS, MG, CMP #### [facility] [address] [place] [address] Dr. Kerrie Russell Sodium [Moles/Vol] 140 mmol/L Normal 137-145 [facility] Comment on above: Performed By: #### P HOS, MG, CMP #### [facility] [address] [place] [address] Dr. Kerrie Russell Urea nitrogen [Mass/Vol] 14.0 mg/dL Normal 7.0-18.0 [facility] Comment on above: Performed By: #### P HOS, MG, CMP #### [facility] [address] [place] [address] Dr. Kerrie Russell Urea nitrogen/Creatinine [Mass ratio] 23.3 mg/mg Normal [facility] Comment on above: Performed By: #### P HOS, MG, CMP #### [facility] [address] [place] [address] Dr. Kerrie Russell VIT B12 AND FOLATEon 022 Cobalamin (Vitamin B12) [Mass/Vol] 546.0 pg/mL Normal 239.0-931.0 [facility] Comment on above: Performed By: #### C VDTBH #### [facility] [address] [place] [address] Dr. Kerrie Russell FOLATE 17.80 ng/mL Normal >=2.76 [facility] Comment on above: Performed By: #### C VDTBH #### [facility] [address] [place] [address] Dr. Kerrie Russell VITAMIN D 25 OHon 08-11-2021 VIT D 25-OH 35.1 ng/mL Normal [facility] Comment on above: Performed By: #### C VDTBH #### [facility] [address] [place] [address] Dr. Kerrie Russell VIT D RANGES SEE BELOW Normal [facility] Comment on above: Result Comment: <20 ng/mL Vit D deficient 20 - <30 ng/mL Vit D insufficient 30 - 100 ng/mL Vit D sufficient >100 ng/mL Potential Toxicity Performed By: #### C VDTB #### [facility] [address] [place], [place] [address] Dr. Kerrie Russell XR KUB 1 VIEWon [...] MELLISSA SEGAL Date: 2021-08-11 09:44 Normal [facility] Complete Blood Count with Au to Diffon 07-12-2021 Basophils (Bld) [#/Vol] 0.01 10*3/uL Normal 0.00-0.20 [facility] Comment on above: Performed By: #### F ERR, CBCAD, FE Prof, smear, CMP #### [facility] [address] [place], [place] [id number] Basophils/100 WBC (Bld) 0.2 % Normal [facility] [employer] Comment on above: Performed By: #### F ERR, CBCAD, FE Prof, smear, CMP #### [facility] [address] [place], [place] [id number] Eosinophils (Bld) [#/Vol] 0.14 10*3/uL Normal 0.02-0.50 [facility] [employer] Comment on above: Performed By: #### F ERR, CBCAD, FE Prof, smear, CMP #### [facility] [address] [place], [place] [id number] Eosinophils/100 WBC (Bld) 2.8 % Normal [facility] [employer] Comment on above: Performed By: #### F ERR, CBCAD, FE Prof, smear, CMP #### [facility] [address] [place], [place] [id number] Erythrocyte distribution width (RBC) [Ratio] 17.0 % High 11.0-15.0 [facility] Comment on above: Performed By: #### F ERR, CBCAD, FE Prof, smear, CMP #### [facility] [address] [place], [place] [id number] Hematocrit (Bld) [Volume fraction] 34.8 % Low 35.0-47.0 [facility] Comment on above: Performed By: #### F ERR, CBCAD, FE Prof, smear, CMP #### [facility] [address] [place], [place] [id number] Hemoglobin (Bld) [Mass/Vol] 9.8 g/dL Low 11.6-15.5 [facility] Comment on above: Performed By: #### F ERR, CBCAD, FE Prof, smear, CMP #### [facility] [address] [place], [place] [id number] Lymphocytes (Bld) [#/Vol] 2.1 10*3/uL Normal 0.9-3.9 [facility] Comment on above: Performed By: #### F ERR, CBCAD, FE Prof, smear, CMP #### [facility] [address] [place], [place] [id number] Lymphocytes/100 WBC (Bld) 42.3 % Normal [facility] Comment on above: Performed By: #### F ERR, CBCAD, FE Prof, smear, CMP #### [facility] [address] [place], [place] [id number] MCH (RBC) [Entitic mass] 20.3 pg Low 27.0-33.0 [facility] Comment on above: Performed By: #### F ERR, CBCAD, FE Prof, smear, CMP #### [facility] [address] [place], [place] [id number] MCHC (RBC) [Mass/Vol] 28.2 g/dL Low 32.0-36.0 [facility] Comment on above: Performed By: #### F ERR, CBCAD, FE Prof, smear, CMP #### [facility] [address] [place], [place] [id number] MCV (RBC) [Entitic vol] 72 fL Low 80-100 [facility] Comment on above: Performed By: #### F ERR, CBCAD, FE Prof, smear, CMP #### [facility] [address] [place], [place] [id number] Monocytes (Bld) [#/Vol] 0.6 10*3/uL Normal 0.2-0.9 [facility] Comment on above: Performed By: #### F ERR, CBCAD, FE Prof, smear, CMP #### [facility] [address] [place], [place] [id number] Monocytes/100 WBC (Bld) 11.4 % Normal [facility] Comment on above: Performed By: #### F ERR, CBCAD, FE Prof, smear, CMP #### [facility] [address] [place], [place] [id number] Neutrophils (Bld) [#/Vol] 2.1 10*3/uL Normal 1.5-7.8 [facility] Comment on above: Performed By: #### F ERR, CBCAD, FE Prof, smear, CMP #### [facility] [address] [place], [place] [id number] Neutrophils/100 WBC (Bld) 42.9 % Normal [facility] Comment on above: Performed By: #### F ERR, CBCAD, FE Prof, smear, CMP #### [facility] [address] [place], [place] [id number] Platelet mean volume (Bld) [Entitic vol] 10.10 fL Normal 7.50-12.50 [facility] [place] Comment on above: Performed By: #### F ERR, CBCAD, FE Prof, smear, CMP #### [facility] [address] [place], [place] [id number] Platelets (Bld) [#/Vol] 368 10*3/uL Normal 140-400 [facility] Comment on above: Performed By: #### F ERR, CBCAD, FE Prof, smear, CMP #### [facility] [address] [place], [place] [id number] RBC (Bld) [#/Vol] 4.82 10*6/uL Normal 3.90-5.20 [place] [employer] Comment on above: Performed By: #### F ERR, CBCAD, FE Prof, smear, CMP #### [facility] [address] [place], [place] [id number] RDW-SD 43.4 fL Normal 37.0-50.0 [facility] Comment on above: Performed By: #### F ERR, CBCAD, FE Prof, smear, CMP #### [facility] [address] [place], [place] [id number] REFLEX Smear Review Normal [facility] Comment on above: Performed By: #### F ERR, CBCAD, FE Prof, smear, CMP #### [facility] [address] [place], [place] [id number] WBC (Bld) [#/Vol] 4.9 10*3/uL Normal 3.8-11.0 [facility] [employer] Comment on above: Performed By: #### F ERR, CBCAD, FE Prof, smear, CMP #### [facility] [address] [place], [place] [id number] Comprehensive Metabolic Pane celestino 07-12-2021 Albumin [Mass/Vol] 4.5 g/dL Normal 3.6-5.1 [facility] [employer] Comment on above: Performed By: #### F ERR, CBCAD, FE Prof, smear, CMP #### [facility] [address] [place], [place] [id number] Albumin/Globulin [Mass ratio] 1.7 {ratio} Normal 1.0-2.5 [facility] [employer] Comment on above: Performed By: #### F ERR, CBCAD, FE Prof, smear, CMP #### [facility] [address] [place], [place] [id number] ALP [Catalytic activity/Vol] 80 U/L Normal 35-119 [facility] [employer] Comment on above: Performed By: #### F ERR, CBCAD, FE Prof, smear, CMP #### [facility] [address] [place], [place] [id number] ALT [Catalytic activity/Vol] 12 U/L Normal 6-33 [facility] [employer] Comment on above: Result Comment: 03/29 Female reference range changed. Performed By: #### F ERR, CBCAD, FE Prof, smear, CMP #### [facility] [address] [place], [place] [id number] Anion gap [Moles/Vol] 18 mmol/L Normal 12-20 [facility] Comment on above: Result Comment: Rach ctive 05/04/2019 reference range changed. Performed By: #### F ERR, CBCAD, FE Prof, smear, CMP #### [facility] [address] [place], [place] [id number] AST [Catalytic activity/Vol] 20 U/L Normal 9-34 [facility] Comment on above: Performed By: #### F ERR, CBCAD, FE Prof, smear, CMP #### [facility] [address] [place], [place] [id number] BUN/CREA 19 Ratio Normal 6-22 [facility] Comment on above: Performed By: #### F ERR, CBCAD, FE Prof, smear, CMP #### [facility] [address] [place], [place] [id number] Calcium [Mass/Vol] 8.8 mg/dL Normal 8.6-10.2 [facility] Comment on above: Performed By: #### F ERR, CBCAD, FE Prof, smear, CMP #### [facility] [address] [place], [place] [id number] Chloride [Moles/Vol] 104 mmol/L Normal 98-107 [facility] Comment on above: Performed By: #### F ERR, CBCAD, FE Prof, smear, CMP #### [facility] [address] [place], [place] [id number] CO2 [Moles/Vol] 22 mmol/L Normal 20-31 [facility] Comment on above: Performed By: #### F ERR, CBCAD, FE Prof, smear, CMP #### [facility] [address] [place], [place] [id number] Creatinine [Mass/Vol] 0.6 mg/dL Normal 0.6-1.4 [facility] Comment on above: Performed By: #### F ERR, CBCAD, FE Prof, smear, CMP #### [facility] [address] [place], [place] [id number] eGFRAA 155 mL/min/1.73m2 Normal >60 [facility] Comment on above: Performed By: #### F ERR, CBCAD, FE Prof, smear, CMP #### [facility] [address] [place], [place] [id number] eGFRNAA 128 mL/min/1.73m2 Normal >60 [facility] Comment on above: Performed By: #### F ERR, CBCAD, FE Prof, smear, CMP #### [facility] [address] [place], [place] [id number] Globulin (S) [Mass/Vol] 2.6 g/dL Normal 1.9-3.7 [facility] Comment on above: Performed By: #### F ERR, CBCAD, FE Prof, smear, CMP #### [facility] [address] [place], [place] [id number] Glucose [Mass/Vol] 80 mg/dL Normal 65-99 [facility] [employer] Comment on above: Result Comment: For FASTING Glucose --- ADA reference ranges: Normal 65-99 mg/dl Prediabetes 100-125 Diabetes >/= 126 Performed By: #### F ERR, CBCAD, FE Prof, smear, CMP #### [facility] [address] [place], [place] [id number] Potassium [Moles/Vol] 4.2 mmol/L Normal 3.5-5.5 [facility] Specialist Comment on above: Performed By: #### F ERR, CBCAD, FE Prof, smear, CMP #### [facility] [address] [place], [place] [id number] Protein [Mass/Vol] 7.1 g/dL Normal 6.1-8.1 [facility] [employer] Comment on above: Performed By: #### F ERR, CBCAD, FE Prof, smear, CMP #### [facility] [address] [place], [place] [id number] Sodium [Moles/Vol] 139 mmol/L Normal 135-146 [facility] [place] [employer] Comment on above: Performed By: #### F ERR, CBCAD, FE Prof, smear, CMP #### [facility] [address] [place], [place] [id number] TBIL <0.3 Normal [facility] Specialist Comment on above: Performed By: #### F ERR, CBCAD, FE Prof, smear, CMP #### [facility] [address] [place], [place] [id number] Urea nitrogen [Mass/Vol] 11 mg/dL Normal 7-25 [facility] Specialist Comment on above: Performed By: #### F ERR, CBCAD, FE Prof, smear, CMP #### [facility] [address] [place], [place] [id number] Ferritinon 07-12-2021 FERR 12.1 ng/mL Low 15.0-150.0 [facility] Specialist Comment on above: Performed By: #### F ERR, CBCAD, FE Prof, smear, CMP #### [facility] [address] [place], [place] [id number] Iron Profileon 07-12-2021 %FESAT 6 % Low 11-50 [facility] Specialist Comment on above: Performed By: #### F ERR, CBCAD, FE Prof, smear, CMP #### [facility] [address] [place], [place] [id number] FE 25 ug/dL Low 40-190 [facility] [employer] Comment on above: Result Comment: Refe rence range change 03/15/2017. Prior reference range F 37-145 ug/dL, M 59-158 ug/dL. Performed By: #### F ERR, CBCAD, FE Prof, smear, CMP #### [facility] [address] [place], [place] [id number] TIBC 441 ug/dL Normal 250-450 [facility] Specialist Comment on above: Performed By: #### F ERR, CBCAD, FE Prof, smear, CMP #### [facility] [address] [place], [place] [id number] UIBC 416 ug/dL High 112-347 [facility] [employer] Comment on above: Performed By: #### F ERR, CBCAD, FE Prof, smear, CMP #### [facility] [address] [place], [place] [id number] Smear Reviewon 07-12-2021 PLT EST Adequate Normal [facility] Specialist Comment on above: Performed By: #### F ERR, CBCAD, FE Prof, smear, CMP #### [facility] [address] [facility] [place] [place] [id number] RBC morphology finding Nom (Bld) RBC morphology review confirms RBC indices Normal [facility] Comment on above: Performed By: #### F ERR, CBCAD, FE Prof, smear, CMP #### [facility] [address] [place], [place] [id number] CBC AUTO DIFFon 05-13-2021 BASO # 0.0 103/ul Normal 0.0-0.1 [facility] Comment on above: Performed By: #### C BC #### [facility] [address] [place] [address] Dr. Kerrie Russell Basophils/100 WBC (Bld) 0.1 % Critically low 0.2-2.0 [facility] Comment on above: Performed By: #### C BC #### [facility] [address] [place] [address] Dr. Kerrie Russell EO # 0.0 103/ul Normal 0.0-0.7 [facility] Comment on above: Performed By: #### C BC #### [facility] [address] [address] [address] Kerrie Russell Eosinophils/100 WBC (Bld) 0.0 % Critically low 0.9-7.0 [facility] Comment on above: Performed By: #### C BC #### [facility] [address] [place] [address] Dr. Kerrie Russell Erythrocyte distribution width (RBC) [Ratio] 15.0 % Normal 11.0-15.0 [facility] Comment on above: Performed By: #### C BC #### [facility] [address] [address] [address] Kerrie Russell Hematocrit (Bld) [Volume fraction] 25.2 % Critically low 36.0-48.0 [facility] Comment on above: Performed By: #### C BC #### [facility] [address] [place] [address] Dr. Kerrie Russell Hemoglobin (Bld) [Mass/Vol] 7.6 g/dL Critically low 12.0-16.0 [facility] Comment on above: Result Comment: Post delivery Performed By: #### C BC #### [facility] [address] [address] [address] Kerrie Russell IG # 0.08 10e3/ul Critically high 0.00-0.03 [facility] Comment on above: Performed By: #### C BC #### [facility] [address] [address] [address] Kerrie Russell IG % 1.0 % Critically high 0.0-0.5 [facility] Comment on above: Performed By: #### C BC #### [facility] [address] [address] [address] Kerrie Russell LYMPH # 2.2 103/ul Normal 1.2-3.8 [facility] Comment on above: Performed By: #### C BC #### [facility] [address] [place] [address] Dr. Kerrie Russell Lymphocytes/100 WBC (Bld) 26.5 % Normal 20.5-60.0 [facility] Comment on above: Performed By: #### C BC #### [facility] [address] [place] [address] Dr. Kerrie Russell MANUAL DIFF REQ NO Normal [facility] Comment on above: Performed By: #### C BC #### [facility] [address] [place] [address] Dr. Kerrie Russell MCH (RBC) [Entitic mass] 21.7 pg Critically low 26.7-34.0 [facility] Comment on above: Performed By: #### C BC #### [facility] [address] [place] [address] Dr. Kerrie Russell MCHC (RBC) [Mass/Vol] 30.2 g/dL Normal 29.9-35.2 [facility] Comment on above: Performed By: #### C BC #### [facility] [address] [address] [address] Kerrie Russell MCV (RBC) [Entitic vol] 72.0 fL Critically low 81.0-99.0 [facility] Comment on above: Performed By: #### C BC #### [facility] [address] [place] [address] Dr. Kerrie Russell MONO # 0.7 103/ul Normal 0.3-0.8 [facility] Comment on above: Performed By: #### C BC #### [facility] [address] [address] [address] Kerrie Russell Monocytes/100 WBC (Bld) 9.1 % Normal 1.7-12.0 [facility] Comment on above: Performed By: #### C BC #### [facility] [address] [place] [address] Dr. Kerrie Russell NEUT # 5.1 103/ul Normal 1.4-6.5 [facility] Comment on above: Performed By: #### C BC #### [facility] [address] [place] [address] Dr. Kerrie Russell Neutrophils/100 WBC (Bld) 63.3 % Normal 43.0-75.0 [facility] Comment on above: Performed By: #### C BC #### [facility] [address] [place] [address] Dr. Kerrie Russell Platelet mean volume (Bld) [Entitic vol] 10.1 fL Normal 9.5-13.5 [facility] Comment on above: Performed By: #### C BC #### [facility] [address] [place] [address] Dr. Kerrie Russell PLT 181 103/ul Normal 150-450 [facility] Comment on above: Performed By: #### C BC #### [facility] [address] [place] [address] Dr. Kerrie Russell RBC 3.50 106/ul Critically low 4.20-5.40 [facility] Comment on above: Performed By: #### C BC #### [facility] [address] [place] [address] Dr. Kerrie Russell WBC 8.1 103/ul Normal 4.0-11.0 [facility] Comment on above: Performed By: #### C BC #### [facility] [address] [place] [address] Dr. Kerrie Russell CBC AUTO DIFFon 05-11-2021 BASO # 0.0 103/ul Normal 0.0-0.1 [facility] Comment on above: Performed By: #### C VDTBH #### [facility] [address] [place] [address] Dr. Kerrie Russell Basophils/100 WBC (Bld) 0.4 % Normal 0.2-2.0 [facility] Comment on above: Performed By: #### C VDTBH #### [facility] [address] [place] [address] Dr. Kerrie Russell EO # 0.0 103/ul Normal 0.0-0.7 [facility] Comment on above: Performed By: #### C VDTBH #### [facility] [address] [place] [address] Dr. Kerrie Russell Eosinophils/100 WBC (Bld) 0.3 % Critically low 0.9-7.0 [facility] Comment on above: Performed By: #### C VDTBH #### [facility] [address] [place] [address] Dr. Kerrie Russell Erythrocyte distribution width (RBC) [Ratio] 14.8 % Normal 11.0-15.0 [facility] Comment on above: Performed By: #### C VDTBH #### [facility] [address] [place] [address] Dr. Kerrie Russell Hematocrit (Bld) [Volume fraction] 31.2 % Critically low 36.0-48.0 [facility] Comment on above: Performed By: #### C VDTBH #### [facility] [address] [place] [address] Dr. Kerrie Russell Hemoglobin (Bld) [Mass/Vol] 9.6 g/dL Critically low 12.0-16.0 [facility] Comment on above: Performed By: #### C VDTBH #### [facility] [address] [place] [address] Dr. Kerrie Russell IG # 0.07 10e3/ul Critically high 0.00-0.03 [facility] Comment on above: Performed By: #### C VDTBH #### [facility] [address] [address] [address] Kerrie Russell IG % 1.0 % Critically high 0.0-0.5 [facility] Comment on above: Performed By: #### C VDTBH #### [facility] [address] [address] [address] Kerrie Russell LYMPH # 1.5 103/ul Normal 1.2-3.8 [facility] Comment on above: Performed By: #### C VDTBH #### [facility] [address] [address] [address] Kerrie Russell Lymphocytes/100 WBC (Bld) 21.7 % Normal 20.5-60.0 [facility] Comment on above: Performed By: #### C VDTBH #### [facility] [address] [address] [address] Kerrie Russell MANUAL DIFF REQ NO Normal [facility] Comment on above: Performed By: #### C VDTBH #### [facility] [address] [address] [address] Kerrie Russell MCH (RBC) [Entitic mass] 21.8 pg Critically low 26.7-34.0 [facility] Comment on above: Performed By: #### C VDTBH #### [facility] [address] [address] [address] Kerrie Russell MCHC (RBC) [Mass/Vol] 30.8 g/dL Normal 29.9-35.2 [facility] Comment on above: Performed By: #### C VDTBH #### [facility] [address] [address] [address] Kerrie Russell MCV (RBC) [Entitic vol] 70.7 fL Critically low 81.0-99.0 [facility] Comment on above: Performed By: #### C VDTBH #### [facility] [address] [address] [address] Kerrie Russell MONO # 0.7 103/ul Normal 0.3-0.8 [facility] Comment on above: Performed By: #### C VDTBH #### [facility] [address] [place] [address] Dr. Kerrie Russell Monocytes/100 WBC (Bld) 9.7 % Normal 1.7-12.0 [facility] Comment on above: Performed By: #### C VDTBH #### [facility] [address] [place] [address] Dr. Kerrie Russell NEUT # 4.7 103/ul Normal 1.4-6.5 [facility] Comment on above: Performed By: #### C VDTBH #### [facility] [address] [place] [address] Dr. Kerrie Russell Neutrophils/100 WBC (Bld) 66.9 % Normal 43.0-75.0 [facility] Comment on above: Performed By: #### C VDTBH #### [facility] [address] [place] [address] Dr. Kerrie Russell Platelet mean volume (Bld) [Entitic vol] 10.0 fL Normal 9.5-13.5 [facility] Comment on above: Performed By: #### C VDTBH #### [facility] [address] [place] [address] Dr. Kerrie Russell PLT 272 103/ul Normal 150-450 [facility] Comment on above: Performed By: #### C VDTBH #### [facility] [address] [place] [address] Dr. Kerrie Russell RBC 4.41 106/ul Normal 4.20-5.40 [facility] Comment on above: Performed By: #### C VDTBH #### [facility] [address] [place] [address] Dr. Kerrie Russell WBC 7.0 103/ul Normal 4.0-11.0 [facility] Comment on above: Performed By: #### C VDTBH #### [facility] [address] [place] [address] Dr. Kerrie Russell [facility] SARS-CoV-2 (COVID-19) RNA DEZ+probe Ql (Unsp spec) Detected Critically abnormal NOT DETECTED [facility] Comment on above: Result Comment: This test is not yet approved or cleared by the [place] FDA. When there are no FDA-approved or cleared tests available, and other criteria are met, FDA can make tests available under an emergency access mechanism called an Emergency Use Authorization (EUA). The EUA for this test is supported by the Breading Machine Tender of Health and Human Service's declaration that [...] used). Performed By: #### C VDTBH #### [facility] [address] [place] [address] Dr. Kerrie Russell DRUG SCREEN RAPID (URINE)on 05-11-2021 AMP Negative Normal NEGATIVE [facility] Comment on above: Performed By: #### C VDTBH #### [facility] [address] [place] [address] Dr. Kerrie Russell BAR Negative Normal NEGATIVE [facility] Comment on above: Performed By: #### C VDTBH #### [facility] [address] [place] [address] Dr. Kerrie Russell BUP Negative Normal NEGATIVE [facility] Comment on above: Performed By: #### C VDTBH #### [facility] [address] [place] [address] Dr. Kerrie Russell BZO Negative Normal NEGATIVE [facility] Comment on above: Performed By: #### C VDTBH #### [facility] [address] [place] [address] Dr. Kerrie Russell ESTRELLA Negative Normal NEGATIVE [facility] Comment on above: Performed By: #### C VDTBH #### [facility] [address] [place] [address] Dr. Kerrie Russell CUT-OFFS SEE BELOW Normal [facility] Comment on above: Result Comment: [...] ng/mL Performed By: #### C VDTBH #### [facility] [address] [place] [address] Dr. Kerrie Russell DRUG CUT HEADER DRUG CLASS TEST SYSTEM CUT-OFF CONCENTRATIONS ARE FOLLOWS: Normal [facility] Comment on above: Performed By: #### C VDTBH #### [facility] [address] [place] [address] Dr. Kerrie Russell mAMP Negative Normal NEGATIVE [facility] Comment on above: Performed By: #### C VDTBH #### [facility] [address] [place] [address] Dr. Kerrie Russell MTD Negative Normal NEGATIVE [facility] Comment on above: Performed By: #### C VDTBH #### [facility] [address] [place] [address] Dr. Kerire Russell OPI Negative Normal NEGATIVE [facility] Comment on above: Performed By: #### C VDTBH #### [facility] [address] [place] [address] Dr. Kerrie Russell OXY Negative Normal NEGATIVE [facility] Comment on above: Performed By: #### C VDTBH #### [facility] [address] [place] [address] Dr. Kerrie Russell PCP Negative Normal NEGATIVE [facility] Comment on above: Performed By: #### C VDTBH #### [facility] [address] [place] [address] Dr. Kerrie Russell PPX Negative Normal NEGATIVE [facility] Comment on above: Performed By: #### C VDTBH #### [facility] [address] [address] [address] Kerrie Russell TCA Negative Normal NEGATIVE [facility] Comment on above: Performed By: #### C VDTBH #### [facility] [address] [address] [address] Kerrie Russell THC Negative Normal NEGATIVE [facility] Comment on above: Performed By: #### C VDTBH #### [facility] [address] [address] [address] Kerrie Russell TYPE AND SCREENon 05-11-2021 TYPE AND SCREEN Negative Normal [facility] Comment on above: Performed By: #### P HOS, MG, CMP #### [facility] [address] [address] [address] Kerrie Russell Complete Blood Count Auto Di ffon 07-25-2020 Basophils (Bld) [#/Vol] 0.1 10*3/uL Normal 0.0-0.[address] [facility] Comment on above: Result Comment: PERF ORMED BY: [place] [address] PATHOLOGIST DENTAL CHAIRSIDE ASSISTANT TOLU MANUEL M.D. Performed By: #### F E PRO, [id number], CMP, MG, [id number], PHOS, CBC #### [facility] [address] [place] [address] #### VITB1 #### [facility] , Basophils/100 WBC (Bld) 0.7 % Normal . [facility] Comment on above: Performed By: #### F E PRO, [id number], CMP, MG, [id number], PHOS, CBC #### [facility] [address] [place] [address] #### VITB1 #### [facility] , Eosinophils (Bld) [#/Vol] 0.1 10*3/uL Normal 0.0-0.[address] [facility] Comment on above: Performed By: #### F E PRO, [id number], CMP, MG, [id number], PHOS, CBC #### [address] #### VITB1 #### [facility] , Eosinophils/100 WBC (Bld) 1.6 % Normal . [facility] Comment on above: Performed By: #### F E PRO, [id number], CMP, MG, [id number], PHOS, CBC #### [address] #### VITB1 #### [facility] , Erythrocyte distribution width (RBC) [Ratio] 13.0 % Normal 11.9-15.[address] [facility] Comment on above: Performed By: #### F E PRO, [id number], CMP, MG, [id number], PHOS, CBC #### [address] #### VITB1 #### [facility] , Hematocrit (Bld) [Volume fraction] 38.3 % Normal 34.0-46.[address] [facility] Comment on above: Performed By: #### F E PRO, [id number], CMP, MG, [id number], PHOS, CBC #### [address] #### VITB1 #### [facility] , Hemoglobin (Bld) [Mass/Vol] 12.9 g/dL Normal 11.8-15.[address] [facility] Comment on above: Performed By: #### F E PRO, [id number], CMP, MG, [id number], PHOS, CBC #### [place] [address] [place] #### VITB1 #### [facility] , Lymphocytes (Bld) [#/Vol] 4.6 10*3/uL Normal 1.00-4.[address] [facility] Comment on above: Performed By: #### F E PRO, [id number], CMP, MG, [id number], PHOS, CBC #### [address] #### VITB1 #### [facility] , Lymphocytes/100 WBC (Bld) 49.5 % Normal . [facility] Comment on above: Performed By: #### F E PRO, [id number], CMP, MG, [id number], PHOS, CBC #### [address] #### VITB1 #### [facility] , MCH (RBC) [Entitic mass] 28.6 pg Normal 24.7-34.[address] [facility] Comment on above: Performed By: #### F E PRO, [id number], CMP, MG, [id number], PHOS, CBC #### [address] #### VITB1 #### [facility] , MCV (RBC) [Entitic vol] 84.5 fL Normal 80-[address] [facility] Comment on above: Performed By: #### F E PRO, [id number], CMP, MG, [id number], PHOS, CBC #### [address] #### VITB1 #### [facility] , Mean Corpuscular HGB Conc 33.8 g/dL Normal 32.0-35.[address] [facility] Comment on above: Performed By: #### F E PRO, [id number], CMP, MG, [id number], PHOS, CBC #### [address] #### VITB1 #### [facility] , Monocytes (Bld) [#/Vol] 0.7 10*3/uL Normal 0.0-0.[address] [facility] Comment on above: Performed By: #### F E PRO, [id number], CMP, MG, [id number], PHOS, CBC #### [address] #### VITB1 #### [facility] , Monocytes/100 WBC (Bld) 7.5 % Normal . [facility] Comment on above: Performed By: #### F E PRO, [id number], CMP, MG, [id number], PHOS, CBC #### [address] #### VITB1 #### [facility] , Neutrophils (Bld) [#/Vol] 3.8 10*3/uL Normal 1.8-7.[address] [facility] Comment on above: Performed By: #### F E PRO, [id number], CMP, MG, [id number], PHOS, CBC #### [address] #### VITB1 #### [facility] , Neutrophils/100 WBC (Bld) 40.7 % Normal . [facility] Comment on above: Performed By: #### F E PRO, [id number], CMP, MG, [id number], PHOS, CBC #### [address] #### VITB1 #### [facility] , Nucleated RBC/100 WBC (Bld) [Ratio] 0.4 % Normal 0-0.[address] [facility] Comment on above: Performed By: #### F E PRO, [id number], CMP, MG, [id number], PHOS, CBC #### [place] [address] [place] #### VITB1 #### [facility] , Platelet mean volume (Bld) [Entitic vol] 7.8 fL Normal 6.3-10.[address] [facility] Comment on above: Performed By: #### F E PRO, [id number], CMP, MG, [id number], PHOS, CBC #### [place] [address] [place] #### VITB1 #### [facility] , Platelets (Bld) [#/Vol] 354 10*3/uL Normal 150-[address] [facility] Comment on above: Performed By: #### F E PRO, [id number], CMP, MG, [id number], PHOS, CBC #### [address] #### VITB1 #### [facility] , RBC (Bld) [#/Vol] 4.53 10*6/uL Normal 3.60-5.00 [facility] Comment on above: Performed By: #### F E PRO, [id number], CMP, MG, [id number], PHOS, CBC #### [address] #### VITB1 #### [facility] , WBC (Bld) [#/Vol] 9.3 10*3/uL Normal 4.5-11.0 [facility] Comment on above: Performed By: #### F E PRO, [id number], CMP, MG, [id number], PHOS, CBC #### [place] [address] [place] #### VITB1 #### [facility] , Comprehensive Metabolic Pane celestino 07-25-2020 Albumin [Mass/Vol] 4.0 g/dL Normal 3.2-5.5 [facility] Comment on above: Performed By: #### F E PRO, [id number], CMP, MG, [id number], PHOS, CBC #### [address] #### VITB1 #### [facility] , Albumin/Globulin [Mass ratio] 1.4 {ratio} Normal [facility] Comment on above: Performed By: #### F E PRO, [id number], CMP, MG, [id number], PHOS, CBC #### [facility] [address] [place] [address] #### VITB1 #### [facility] , ALP [Catalytic activity/Vol] 58 U/L Normal 32-[address] [facility] Comment on above: Performed By: #### F E PRO, [id number], CMP, MG, [id number], PHOS, CBC #### [facility] [address] [place] [address] #### VITB1 #### [facility] , ALT [Catalytic activity/Vol] 12 U/L Normal 10-[address] [facility] Comment on above: Performed By: #### F E PRO, [id number], CMP, MG, [id number], PHOS, CBC #### [facility] [address] [place] [address] #### VITB1 #### [facility] , AST [Catalytic activity/Vol] 19 U/L Normal 10-[address] [facility] Comment on above: Performed By: #### F E PRO, [id number], CMP, MG, [id number], PHOS, CBC #### [facility] [address] [place] [address] [place] #### VITB1 #### [facility] , Bilirubin [Mass/Vol] 0.5 mg/dL Normal 0.3-1.2 [facility] Comment on above: Performed By: #### F E PRO, [id number], CMP, MG, [id number], PHOS, CBC #### [facility] [address] [place] [address] [place] #### VITB1 #### [facility] , Calcium [Mass/Vol] 9.0 mg/dL Normal 8.2-10.2 [facility] Comment on above: Performed By: #### F E PRO, [id number], CMP, MG, [id number], PHOS, CBC #### [facility] [address] [place] [address] [place] #### VITB1 #### [facility] , Chloride [Moles/Vol] 100 mmol/L Normal 95-114 [facility] Comment on above: Performed By: #### F E PRO, [id number], CMP, MG, [id number], PHOS, CBC #### [facility] [address] [place] [address] #### VITB1 #### [facility] , CO2 [Moles/Vol] 27.3 mmol/L Normal 22.0-30.0 [facility] Comment on above: Performed By: #### F E PRO, [id number], CMP, MG, [id number], PHOS, CBC #### [address] #### VITB1 #### [facility] , Creatinine [Mass/Vol] 0.59 mg/dL Normal 0.44-1.03 [facility] Comment on above: Performed By: #### F E PRO, [id number], CMP, MG, [id number], PHOS, CBC #### [facility] [address] [place] [address] [place] #### VITB1 #### [facility] , Estimated GFR ( Monica > [address] [facility] Comment on above: Result Comment: GFR estimated reference range: According to KDOQI guidelines, <60 ml/min/1.73m2 is sufficient to diagnose a patient with chronic kidney disease. Performed By: #### F E PRO, [id number], CMP, MG, [id number], PHOS, CBC #### [facility] [address] [place] [address] [place] #### VITB1 #### [facility] , Estimated GFR (Non- Am > [address] [facility] Comment on above: Performed By: #### F E PRO, [id number], CMP, MG, [id number], PHOS, CBC #### [facility] [address] [place] [address] [place] #### VITB1 #### [facility] , Globulin (S) [Mass/Vol] 2.8 g/dL Normal [facility] Comment on above: Performed By: #### F E PRO, [id number], CMP, MG, [id number], PHOS, CBC #### [facility] [address] [place] [address] [place] #### VITB1 #### [facility] , Glucose [Mass/Vol] 118 mg/dL High 70-100 [facility] Comment on above: Result Comment: [facility] Glucose Reference Range is dependent on time and content of last meal. Glucose of more than 200 mg/dL in a nonstressed, ambulatory subject supports the diagnosis of Diabetes Mellitus. ADA recommended reference range Performed By: #### F E PRO, [id number], CMP, MG, [id number], PHOS, CBC #### [facility] [address] [place] [address] [place] #### VITB1 #### [facility] , Potassium [Moles/Vol] 3.6 mmol/L Normal 3.5-5.1 [facility] Comment on above: Performed By: #### F E PRO, [id number], CMP, MG, [id number], PHOS, CBC #### [facility] [address] [place] [address] [place] #### VITB1 #### [facility] , Protein [Mass/Vol] 6.8 g/dL Normal 6.1-7.9 [facility] Comment on above: Performed By: #### F E PRO, [id number], CMP, MG, [id number], PHOS, CBC #### [place] [address] [place] #### VITB1 #### [facility] , Sodium [Moles/Vol] 136 mmol/L Normal 136-146 [facility] Comment on above: Performed By: #### F E PRO, [id number], CMP, MG, [id number], PHOS, CBC #### [place] [address] [place] #### VITB1 #### [facility] , Urea nitrogen [Mass/Vol] 10 mg/dL Normal 9-[address] [facility] Comment on above: Performed By: #### F E PRO, [id number], CMP, MG, [id number], PHOS, CBC #### [address] #### VITB1 #### [facility] , FE PROon 07-25-2020 % Iron Saturation 15.0 % Low 20-50 [facility] Comment on above: Performed By: #### F E PRO, [id number], CMP, MG, [id number], PHOS, CBC #### [address] #### VITB1 #### [facility] , Ferritin [Mass/Vol] 8.8 ng/mL Low 11-306.8 [facility] Comment on above: Performed By: #### F E PRO, [id number], CMP, MG, [id number], PHOS, CBC #### [facility] [address] [place] [address] [place] #### VITB1 #### [facility] , Iron [Mass/Vol] 68 ug/dL Normal 40-[address] [facility] Comment on above: Performed By: #### F E PRO, [id number], CMP, MG, [id number], PHOS, CBC #### [place] [address] [place] #### VITB1 #### [facility] , Total Iron Binding Capacity 441 ug/dL Normal 255-[address] [facility] Comment on above: Performed By: #### F E PRO, [id number], CMP, MG, [id number], PHOS, CBC #### [facility] [address] [place] [address] [place] #### VITB1 #### [facility] , Transferrin [Mass/Vol] 315 mg/dL Normal 180-380 [facility] Comment on above: Performed By: #### F E PRO, [id number], CMP, MG, [id number], PHOS, CBC #### [facility] [address] [place] [address] #### VITB1 #### [facility] , Magnesiumon 07-25-2020 Magnesium [Mass/Vol] 1.9 mg/dL Normal 1.6-2.6 [facility] Comment on above: Performed By: #### F E PRO, [id number], CMP, MG, [id number], PHOS, CBC #### [facility] [address] [place] [address] [place] #### VITB1 #### [facility] , Phosphoruson 07-25-2020 Phosphate [Mass/Vol] 3.8 mg/dL Normal 2.5-4.6 [facility] Comment on above: Performed By: #### F E PRO, [id number], CMP, MG, [id number], PHOS, CBC #### [facility] [address] [place] [address] [place] #### VITB1 #### [facility] , Vit. B12/Folate Profileon Cobalamin (Vitamin B12) [Mass/Vol] 613 pg/mL Normal 180-[address] [facility] Comment on above: Performed By: #### F E PRO, [id number], CMP, MG, [id number], PHOS, CBC #### [facility] [address] [place] [address] [place] #### VITB1 #### [facility] , Folate 21.8 ng/mL Normal >5.[address] [facility] Comment on above: Result Comment: Hiral te reference range: >5.9 ng/ml The WHO technical consultation on folate and vitamin b12 deficiencies has determined that folate concentrations less than 4 ng/ml are considered deficient. Performed By: #### F E PRO, [id number], CMP, MG, [id number], PHOS, CBC #### [facility] [address] [place] [address] [place] #### VITB1 #### [facility] , Vitamin B1 (Thiamine) Bloodo n 07-25-2020 Vitamin B1 (Thiamine) Blood 120.7 Normal 66.5-200.[address] [facility] Comment on above: Order Comment: Speci men Comment: Test(s) 383543-Mzn. B1, Whole Blood Specimen Comment: was developed and its performance characteristics Specimen Comment: determined by [facility]. It has not been cleared or approved Specimen Comment: by the Food and Drug Administration. Result Comment: Perf ormed at: - [facility] [id number] [place] Cutter Operator: Jaren Bishop MD, Phone: [phone] PERFORMED BY: [place] [address] PATHOLOGIST DENTAL CHAIRSIDE ASSISTANT TOLU MANUEL M.D. Performed By: #### F E PRO, [id number], CMP, MG, [id number], PHOS, CBC #### [facility] [address] [place], [place] [address] [place] #### VITB1 #### [facility] , Vitamin D 25 Hydroxy Totalon 07-25-2020 Vitamin D 25 Hydroxy Total 33.5 ng/mL Normal 30-[address] [facility] Comment on above: Result Comment: LISANDRO MIN D STATUS 25(OH)VITAMIN D RANGE (ng/mL) Deficient <20 Insufficient 20 to <30 Sufficient 30 to 100 Reference: Sejal MF,Shraddha GANDHI, Filiberto GREENBERG, et al. Evaluation,treatment, and prevention of vitamin D deficiency; an Endocrine Society clinical practice guideline. JCEM. 2010; 96(7):1911-30. PERFORMED BY: [facility] [address] [place] [address] PATHOLOGIST DENTAL CHAIRSIDE ASSISTANT TOLU MANUEL M.D. Performed By: #### F E PRO, [id number], CMP, MG, [id number], PHOS, CBC #### [facility] [address] #### VITB1 #### [facility] , COVID-19 [...] its performance Sharda Disclaimer characteristic determined by [employer] and Sharda Disclaimer validated at [facility]. This Sharda Disclaimer test has not [...] is terminated or revoked sooner. PERFORMED BY: [facility] [address] [place] [address] PATHOLOGIST DENTAL CHAIRSIDE ASSISTANT TOLU MANUEL M.D. [facility] Comment on above: Performed By: #### C OVID-19 SHARDA, SOFIANEG #### [facility] [address] Sharda Ag Negativeon 07-21-19 Sharda Ag Negative Negative Normal Negative [facility] Comment on above: Result Comment: This is a duplicate Sharda SARS Antigen (SIERRA) result to be used for statistical tracking purpose only. PERFORMED BY: [facility] [address] [place] [address] PATHOLOGIST DENTAL CHAIRSIDE ASSISTANT TOLU MANUEL M.D. Performed By: #### C OVID-19 SHARDA, SOFIANEG #### [facility] [address] [place] [id number] [facility] Vitamin B1 (Thiamine) Whl Bl ood LCon 10-05-2018 Vit B1 Whl Bld LC 154.0 nmol/L 66.5-200.0 [facility] Comment on above: Result Comment: This test was developed and its performance characteristics determined by [facility]. It has not been cleared or approved by the Food and Drug Administration. Performed At: [address] [id number] Dario Eastman MD Ph:[phone] Performed By: #### 9 957231, 33082634, 9695502, 6687125785, 6504369, 937818791, 8615034, 7786273, 8052224, 4094756 #### [facility] (DEFAULT) [address] [place] [address] Provider Orderson 10-03-2018 Protein mass conc [id number]# [id number] [facility] Coding Summaryon 10-02-2018 Coding Summary CODING DATE: 10/02/[address] [facility] STATUS: Home PAYOR: Commercial Insurance ADMIT [...] Jordyn Martinez Date Saved: 10/02/2018 03:39 pm [facility] .Auto Diff 1on 10-01-2018 Auto Baso % 0.3 % Normal 0.2-2.0 [facility] Comment on above: Performed By: #### 9 260681, 00750710, 2944696, 2408678202, 3387539, 626799876, 0434397, 2363510, 0973158, 2902197 #### [facility] ([facility]) [address] [place] [address] Auto Torrance % 6 % Normal 1-12 [facility] Comment on above: Performed By: #### 9 339785, 03650597, 5861189, 5119307215, 8524362, 495934982, 5723890, 2764369, 0710487, 8378377 #### [facility] ([facility]) [address] [place] [address] Auto Neut % 60 % Normal 44-88 [facility] Comment on above: Performed By: #### 9 727313, 49380042, 2651069, 1058754629, 8461674, 638741512, 5452951, 9933769, 8656942, 1944483 #### [facility] ([facility]) [address] [place] [address] Baso Abs# 0.0 x10 Normal 0.0-0.2 [facility] Comment on above: Performed By: #### 9 044507, 14771540, 7800774, 4666180357, 5274309, 163748112, 4359153, 7915295, 9885117, 3110397 #### [facility] ([facility]) [address] [place] [address] Eos Abs# 0.1 x10 Normal 0.0-0.4 [facility] Comment on above: Performed By: #### 9 983296, 59332081, 3221674, 6807616115, 2761622, 191130050, 4156977, 7274420, 4069882, 2856829 #### [facility] ([facility]) [address] [place] [address] Eosinophils/100 WBC (Bld) 0.9 % Normal 0.9-4.0 [facility] Comment on above: Performed By: #### 9 314388, 07267270, 9872165, 7213679513, 0417649, 248401601, 8271428, 1939662, 0629150, 9218970 #### [facility] ([facility]) [address] [place] [address] Lymphocytes #/vol (Bld) 3.4 x10 High 1.3-2.9 [facility] Comment on above: Performed By: #### 9 648294, 06284846, 4200920, 7844216076, 2020565, 863992043, 0885034, 1931692, 3204368, 2558880 #### [facility] ([facility]) [address] [place] [address] Lymphocytes/100 WBC (Bld) 33 % Normal 14-48 [facility] Comment on above: Performed By: #### 9 774492, 15990443, 7353753, 9459307652, 2517613, 365584950, 1194828, 6246417, 8339632, 3346385 #### [facility] ([facility]) [address] [place] [address] Torrance Abs# 0.6 x10 Normal 0.0-0.8 [facility] Comment on above: Performed By: #### 9 747584, 67752143, 3863746, 5139758778, 3705581, 263108724, 9536647, 3408025, 4380609, 5700099 #### [facility] ([facility]) [address] [place] [address] Neut Abs# 6.2 x10 Normal 1.5-9.2 [facility] Comment on above: Performed By: #### 9 933804, 74138916, 8434318, 8633120088, 1392649, 473968036, 0902174, 7476807, 7772739, 8777857 #### [facility] ([facility]) [address] [place] [address] CBC w/ Auto Diffon 9 Erythrocyte distribution width Ratio (RBC) 14.6 % Normal 11.5-15.0 [facility] Comment on above: Performed By: #### 9 312638, 39677172, 3692802, 8452363070, 8767964, 587911265, 3141325, 3718016, 0754569, 5230869 #### [facility] ([facility]) [address] [place] [address] Hematocrit Volume Fraction (Bld) 41.2 % High 33.7-40.4 [facility] Comment on above: Performed By: #### 9 612819, 14661644, 5552483, 4942287844, 0636232, 327971499, 6706404, 9507200, 6255584, 2684492 #### [facility] ([facility]) [address] [place] [address] Hemoglobin mass conc (Bld) 13.7 g/dL Normal 11.3-15.9 [facility] Comment on above: Performed By: #### 9 936930, 97383890, 9275769, 8389352762, 9261590, 643443914, 5799591, 5976945, 2398783, 4317997 #### [facility] ([facility]) [address] [place] [address] Man Diff? Auto Normal [facility] Comment on above: Performed By: #### 9 998852, 81318438, 8108267, 1857254322, 9445208, 950168390, 0284446, 9652352, 7137184, 8145972 #### [facility] ([facility]) [address] [place] [address] MCH Entitic mass (RBC) 28 pg Normal 24-34 [facility] Comment on above: Performed By: #### 9 795414, 12881974, 0947493, 8333319763, 8769945, 237857037, 9812562, 9703410, 7453838, 3664653 #### [facility] ([facility]) [address] [place] [address] MCHC mass conc (RBC) 33 g/dL Normal 26-37 [facility] Comment on above: Performed By: #### 9 690865, 27457823, 6706370, 6944382871, 5190063, 662080686, 5874559, 5538655, 2770394, 8135047 #### [facility] ([facility]) [address] [place] [address] MCV Entitic volume (RBC) 85 fL Normal 81-100 [facility] Comment on above: Performed By: #### 9 425922, 67502940, 1660968, 3483598062, 7186869, 514041637, 6318202, 5343584, 2316046, 1922343 #### [facility] ([facility]) [address] [place] [address] Platelet mean volume Entitic volume (Bld) 9.8 fL Normal 6.3-10.2 [facility] Comment on above: Performed By: #### 9 333131, 64362371, 0278832, 9290451853, 8525053, 050878912, 3977408, 3190094, 1011512, 6182190 #### [facility] ([facility]) [address] [place] [address] Platelets #/vol (Bld) 378 x10 Normal 138-427 [facility] Comment on above: Performed By: #### 9 889661, 50906770, 0865789, 0523600818, 1746085, 271041328, 1873750, 3979730, 4562496, 4102458 #### [facility] ([facility]) [address] [place] [address] RBC #/vol (Bld) 4.84 x10 Normal 3.70-5.30 [facility] Comment on above: Performed By: #### 9 858784, 93133984, 2218611, 8040586659, 1060736, 718019016, 9261800, 1541717, 7583306, 4661649 #### [facility] ([facility]) [address] [place] [address] WBC #/vol (Bld) 10.4 x10 Normal 3.5-10.5 [facility] Comment on above: Performed By: #### 9 507501, 17733832, 6697231, 4083285032, 7679059, 818085983, 5673966, 5050184, 9447551, 4383240 #### [facility] ([facility]) [address] [place] [address] CMP Standardon 10-01-2018 eGFR Non AA >60 [facility] Comment on above: Performed By: #### 9 301889, 95974046, 0739813, 2770328581, 7451178, 068076022, 5383770, 5160684, 6860860, 9320644 #### [facility] ([facility]) [address] [place] [address] eGFR AA >60 [facility] Comment on above: Result Comment: Saw Repairer richard Kidney disease could be indicated at eGFRs of less than 60 ml/min/1.73m2. Kidney Failure is indicated at less than 15 ml/min/1.73m2 Performed By: #### 9 845466, 48377685, 2298506, 2649693465, 1609332, 464794359, 9731769, 2883338, 1915700, 5304285 #### [facility] ([facility]) [address] [place] [address] Albumin mass conc 4.1 g/dL Normal 3.5-5.0 [facility] Comment on above: Performed By: #### 9 174018, 45241093, 3558200, 4847771368, 4957145, 689664730, 0096527, 9360647, 2279324, 5770140 #### [facility] ([facility]) [address] [place] [address] Albumin/Globulin mass ratio 1.2 {ratio} Low 1.4-2.6 [facility] Comment on above: Performed By: #### 9 769646, 14697004, 6091880, 2988727877, 9504882, 667346533, 1295983, 5394660, 8483937, 8476492 #### [facility] ([facility]) [address] [place] [address] Alk Phos 57 IU/L Normal 32-91 [facility] Comment on above: Performed By: #### 9 347456, 21308181, 6430807, 6475268496, 6577513, 635937771, 5017048, 9375055, 6578961, 5627905 #### [facility] ([facility]) [address] [place] [address] ALT/SGPT 68.0 IU/L High 14.0-54.0 [facility] Comment on above: Performed By: #### 9 142895, 58634237, 0052985, 0349403267, 7507547, 187666281, 4626991, 3357951, 9579053, 5831008 #### [facility] ([facility]) [address] [place] [address] Anion gap molar conc 15.0 mmol/L Normal 5.0-19.0 [facility] Comment on above: Performed By: #### 9 781794, 53729685, 4835268, 1303177694, 1114321, 524939364, 1056087, 9350333, 5339295, 2180770 #### [facility] ([facility]) [address] [place] [address] AST/SGOT 40 IU/L Normal 15-41 [facility] Comment on above: Performed By: #### 9 614648, 35797912, 4888359, 1628298993, 9192302, 601972021, 5721261, 2887888, 3795379, 5777267 #### [facility] ([facility]) [address] [place] [address] Bili Total 0.2 mg/dL Low 0.3-1.2 [facility] Comment on above: Performed By: #### 9 274774, 09785409, 4285716, 5724565093, 6434227, 944712996, 2323694, 6830807, 1189493, 5370131 #### [facility] ([facility]) [address] [place] [address] Calcium mass conc 9.1 mg/dL Normal 8.9-10.3 [facility] Comment on above: Performed By: #### 9 702980, 24296456, 9156394, 2173004304, 8472217, 940290904, 3245101, 9266872, 7694249, 8308369 #### [facility] ([facility]) [address] [place] [address] Chloride molar conc 103 mmol/L Normal 101-111 [facility] Comment on above: Performed By: #### 9 435216, 36557435, 0841331, 1460872056, 2914929, 293437197, 9494099, 6383946, 3348186, 8648897 #### [facility] ([facility]) [address] [place] [address] CO2 molar conc 24 mmol/L Normal 21-32 [facility] Comment on above: Performed By: #### 9 487319, 48223677, 9599323, 9843223437, 2163932, 109378526, 0142302, 2982166, 2845833, 4318377 #### [facility] ([facility]) [address] [place] [address] Creatinine mass conc 0.71 mg/dL Normal 0.60-1.30 [facility] Comment on above: Performed By: #### 9 376220, 21743692, 2116953, 6057129212, 0475011, 490214558, 7172686, 1779159, 6212830, 9548675 #### [facility] ([facility]) [address] [place] [address] Globulin mass conc (S) 3.3 g/dL Normal 1.5-4.3 [facility] Comment on above: Performed By: #### 9 028999, 04227164, 6445240, 3441259447, 3654357, 556376828, 4742692, 6724140, 4251012, 6160770 #### [facility] ([facility]) [address] [place] [address] Glucose mass conc 94.0 mg/dL Normal 74.0-118.0 [facility] Comment on above: Performed By: #### 9 849217, 81360039, 7965696, 3260455050, 3609983, 345324606, 8096079, 6523245, 1381210, 6729212 #### [facility] (DEFAULT) [address] [place] [address] Osmolality 274 mOsm/L [facility] Comment on above: Performed By: #### 9 333049, 95662873, 9727892, 0020681760, 7545234, 093970607, 4149594, 7736354, 0754949, 8332385 #### [facility] (DEFAULT) [address] [place] [address] Potassium molar conc 3.8 mmol/L Normal 3.6-5.1 [facility] Comment on above: Performed By: #### 9 325051, 32657938, 2743312, 3997957097, 8138794, 499648389, 5447064, 7897668, 4944903, 9355645 #### [facility] (DEFAULT) [address] [place] [address] Protein mass conc 7.4 g/dL Normal 6.5-8.1 [facility] Comment on above: Performed By: #### 9 935787, 71519106, 7649706, 5496702117, 3835373, 418692770, 9674825, 4084205, 9266167, 3387657 #### [facility] (DEFAULT) [address] [place] [address] 11395 Sodium molar conc 138.0 mmol/L Normal 136.0-144.0 [facility] Comment on above: Performed By: #### 9 703872, 57283718, 0267415, 7895173743, 7184048, 021724963, 6384266, 6200073, 7558410, 2249882 #### [facility] ([facility]) [address] [place] [address] 19462 Urea nitrogen mass conc 10 mg/dL Normal 8-26 [facility] Comment on above: Performed By: #### 9 040020, 17037116, 5202357, 6711115656, 9172474, 328175896, 6711665, 0976189, 0080181, 0521574 #### [facility] (DEFAULT) [address] [place] [address] 47089 Urea nitrogen/Creatinine mass ratio 14.0 mg/mg Normal 4.6-16.2 [facility] Comment on above: Performed By: #### 9 561867, 05186477, 7248283, 0642648618, 4338679, 813760962, 0422815, 8584481, 1929727, 2673779 #### [facility] ([facility]) [address] [place] [address] Folateon 10-01-2018 Folic Acid Level 13.29 ng/mL Normal 5.90-24.80 [facility] Comment on above: Result Comment: Norm al folate results > 3.0 ng/mL. Performed By: #### 9 461172, 83903629, 6316036, 5866365526, 6744484, 708686306, 6325104, 7781615, 6732689, 8506274 #### [facility] (DEFAULT) [address] [place] [address] 12837 Iron Levelon 10-01-2018 Iron mass conc 53.0 ug/dL Normal 28.0-170.0 [facility] Comment on above: Performed By: #### 9 036848, 01622293, 4254787, 1672989121, 6179743, 817348942, 3544250, 9803972, 8614727, 4200973 #### [facility] (DEFAULT) [address] [place] [address]3657 Magnesiumon 10-01-2018 Magnesium mass conc 2.01 mg/dL Normal 1.80-2.50 [facility] Comment on above: Result Comment: The reference range for magnesium has changed from 0.40-2.10 mg/dl to 1.80-2.50 mg/dl as of 08/15/15. Performed By: #### 9 749688, 94859946, 1830498, 8008758871, 1686412, 164205009, 4664869, 8098090, 9404297, 6480025 #### [facility] ([facility]) [address] [place] [address] 98099 Phoson 10-01-2018 Phosphate mass conc 3.1 mg/dL Normal 2.5-4.6 [facility] Comment on above: Performed By: #### 9 857439, 60963309, 9081961, 9723646378, 1858980, 707824492, 9810210, 0160413, 3528088, 2915828 #### [facility] (DEFAULT) [address] [place] [id number] Vit B12 Lvlon 10-01-2018 Cobalamin (Vitamin B12) mass conc 1488 pg/mL High 180-914 [facility] Comment on above: Performed By: #### 9 [id number], [id number], [id number], [id number], [id number], [id number], [id number], [id number], [id number], [id number] #### [facility] (DEFAULT) [address] [place] [address]804 Vit D25 OHon 10-01-2018 Vitamin D 25 OH 41 ng/mL [facility] Comment on above: Result Comment: In 2 [...] J Clin Endocrinol Metab 2011; 96 (7): 8835-8337. Performed By: #### 9 [id number], [id number], [id number], [id number], [id number], [id number], [id number], 7142086, [id number], [id number] #### [facility] (DEFAULT) [address] [place] [address]142 Vital Signs Date Time Vital Sign Value Performing Clinician Facility 11-04-2024 11:03-0400 Body mass index (BMI) [Ratio] 33.25 kg/m2 [facility] Phone: [facility] 11-04-2024 11:03-0400 Body weight 79.83 kg Douglas Debbie DO Work Phone: [facility] 11-04-2024 11:03-0400 Diastolic blood pressure 80 mm[Hg] Douglas Debbie DO Work Phone: [facility] 11-04-2024 11:03-0400 Systolic blood pressure 120 mm[Hg] Douglas Debbie DO Work Phone: [facility] 10-28-2024 08:58-0400 Body mass index (BMI) [Ratio] 32.83 kg/m2 Maddie WRIGHT Work Phone: [facility] 10-28-2024 08:58-0400 Body weight 78.81 kg Maddie WRIGHT Work Phone: [facility] 10-28-2024 08:58-0400 Diastolic blood pressure 82 mm[Hg] Maddie WRIGHT Work Phone: [facility] 10-28-2024 08:58-0400 Systolic blood pressure 122 mm[Hg] Maddie WRIGHT Work Phone: [facility] 10-21-2024 14:00-0400 Body mass index (BMI) [Ratio] 33.35 kg/m2 Douglas Debbie DO Work Phone: [facility] 10-21-2024 14:00-0400 Body weight 80.06 kg Douglas Debbie DO Work Phone: [facility] 10-21-2024 14:00-0400 Diastolic blood pressure 84 mm[Hg] Douglas Debbie DO Work Phone: [facility] 10-21-2024 14:00-0400 Systolic blood pressure 120 mm[Hg] Douglas Debbie DO Work Phone: [facility] 10-07-2024 14:10-0400 Body mass index (BMI) [Ratio] 33.78 kg/m2 Douglas Debbie DO Work Phone: [facility] 10-07-2024 14:10-0400 Body weight 81.1 kg Douglas Debbie DO Work Phone: [facility] 10-07-2024 14:10-0400 Diastolic blood pressure 68 mm[Hg] Douglas Debbie DO Work Phone: [facility] 10-07-2024 14:10-0400 Systolic blood pressure 114 mm[Hg] Douglas Debbie DO Work Phone: [facility] 09-23-2024 11:46-0400 Body mass index (BMI) [Ratio] 33.09 kg/m2 Douglas Debbie DO Work Phone: [facility] 09-23-2024 11:46-0400 Body weight 79.43 kg Douglas Debbie DO Work Phone: [facility] 09-23-2024 11:46-0400 Diastolic blood pressure 74 mm[Hg] Douglas Debbie DO Work Phone: [facility] 09-23-2024 11:46-0400 Systolic blood pressure 110 mm[Hg] Douglas Debbie DO Work Phone: [facility] 09-08-2024 09:43-0400 Body mass index (BMI) [Ratio] 32.88 kg/m2 Douglas Debbie DO Work Phone: [facility] 09-08-2024 09:43-0400 Body weight 78.93 kg Douglas Debbie DO Work Phone: [facility] 09-08-2024 09:43-0400 Diastolic blood pressure 70 mm[Hg] Douglas Debbie DO Work Phone: [facility] 09-08-2024 09:43-0400 Systolic blood pressure 112 mm[Hg] Douglas Debbie DO Work Phone: [facility] 08-13-2024 09:32-0400 Body mass index (BMI) [Ratio] 32.08 kg/m2 Douglas Debbie DO Work Phone: [facility] 08-13-2024 09:32-0400 Body weight 77.02 kg Douglas Debbie DO Work Phone: [facility] 08-13-2024 09:32-0400 Diastolic blood pressure 76 mm[Hg] Douglas Debbie DO Work Phone: [facility] 08-13-2024 09:32-0400 Systolic blood pressure 116 mm[Hg] Douglas Debbie DO Work Phone: [facility] 07-16-2024 09:08-0400 Body mass index (BMI) [Ratio] 30.42 kg/m2 Douglas Debbie DO Work Phone: [facility] 07-16-2024 09:08-0400 Body weight 73.03 kg Douglas Debbie DO Work Phone: [facility] 07-16-2024 09:08-0400 Diastolic blood pressure 82 mm[Hg] Douglas Debbie DO Work Phone: [facility] 07-16-2024 09:08-0400 Systolic blood pressure 118 mm[Hg] Douglas Debbie DO Work Phone: [facility] 06-17-2024 08:57-0500 Body mass index (BMI) [Ratio] 30.42 kg/m2 Maddie Harp PA Work Phone: [facility] 06-17-2024 08:57-0500 Body weight 73.03 kg Maddie Dustin PA Work Phone: [facility] 06-17-2024 08:57-0500 Diastolic blood pressure 72 mm[Hg] Maddie Dustin PA Work Phone: [facility] 06-17-2024 08:57-0500 Systolic blood pressure 112 mm[Hg] Maddie Dustin PA Work Phone: [facility] 05-20-2024 15:27-0500 Body mass index (BMI) [Ratio] 29.55 kg/m2 Douglas Debbie DO Work Phone: [facility] 05-20-2024 15:27-0500 Body weight 70.94 kg Douglas Debbie DO Work Phone: [facility] 05-20-2024 15:27-0500 Diastolic blood pressure 70 mm[Hg] Douglas Debbie DO Work Phone: [facility] 05-20-2024 15:27-0500 Systolic blood pressure 102 mm[Hg] Douglas Debbie DO Work Phone: [facility] 04-17-2024 11:01-0500 Body mass index (BMI) [Ratio] 28.72 kg/m2 [facility] Nurse [facility] 04-17-2024 11:01-0500 Body weight 68.95 kg [facility] Nurse [facility] 04-17-2024 11:01-0500 Diastolic blood pressure 70 mm[Hg] [facility] Nurse [facility] 04-17-2024 11:01-0500 Systolic blood pressure 118 mm[Hg] [facility] Nurse [facility] 01-09-2024 15:59-0400 Body height 154.9 cm Xena Mccallum MD Work Phone: [facility] 01-09-2024 15:59-0400 Body mass index (BMI) [Ratio] 29.25 kg/m2 Xena Mccallum MD Work Phone: [facility] 01-09-2024 15:59-0400 Body weight 70.22 kg Xena Mccallum MD Work Phone: [facility] 01-09-2024 15:59-0400 Diastolic blood pressure 70 mm[Hg] Xena Mccallum MD Work Phone: [facility] 01-09-2024 15:59-0400 Heart rate 82 /min Xena Mccallum MD Work Phone: [facility] 01-09-2024 15:59-0400 Respiratory rate 18 /min Xena Mccallum MD Work Phone: [facility] 01-09-2024 15:59-0400 SaO2% (BldA) [Mass fraction] 99 % Xena Mccallum MD Work Phone: [facility] 01-09-2024 15:59-0400 Systolic blood pressure 122 mm[Hg] Xena Mccallum MD Work Phone: [facility] 08-16-2021 10:22-0400 Blood Pressure Location Scotty LOGAN [facility] 08-16-2021 10:22-0400 Diastolic blood pressure 72 mm[Hg] Scotty LOGAN [facility] 08-16-2021 10:22-0400 Heart rate 84 /min Scotty LOGAN [facility] 08-16-2021 10:22-0400 Respiratory rate 16 /min Scotty LOGAN [facility] 08-16-2021 10:22-0400 Systolic blood pressure 104 mm[Hg] Scotty LOGAN [facility] Encounters Encounter Date Encounter Type Care Provider Facility Start: 11-11-2024 End: 11-11-2024 Clinisync Result Encounter Generic External Data Provider [facility] Unsolicited Start: 11-11-2024 End: 11-11-2024 Clinisync Result Encounter Generic External Data Provider [facility] Unsolicited Start: 11-04-2024 End: 11-04-2024 Clinisync Result Encounter Generic External Data Provider [facility] Unsolicited Start: 11-04-2024 End: 11-04-2024 Clinisync Result Encounter Generic External Data Provider [facility] Unsolicited Start: 11-04-2024 End: 11-04-2024 ambulatory DOUGLAS DEBBIE Not Available Start: 11-04-2024 End: 11-04-2024 flow sheet Douglas Debbie DO Work Phone: [facility] Comment on above: 37 weeks gestation o f ([facility]); Third trimester ([facility]); Anxiety, generalized ; History of gastric bypass Start: 10-28-2024 End: 10-28-2024 Bamboo flowsheet Maddie WRIGHT Work Phone: [facility] Start: 10-28-2024 End: 10-28-2024 Bamboo flowsheet Maddie WRIGHT Work Phone: [facility] Start: 10-28-2024 End: 10-28-2024 Clinisync Result Encounter Douglas Debbie DO Work Phone: [facility]solicited Start: 10-28-2024 End: 10-28-2024 flow sheet Maddie WRIGHT Work Phone: [facility] Comment on above: Third trimester preg lian ([facility]); 36 weeks gestation of ([facility]) Start: 10-28-2024 End: 10-28-2024 ambulatory MADDIE HARP Not Available Start: 10-21-2024 End: 10-21-2024 Bamboo flowsheet Douglas Debbie DO Work Phone: [facility] Start: 10-21-2024 End: 10-21-2024 Bamboo flowsheet Douglas Debbie DO Work Phone: [facility] Start: 10-21-2024 End: 10-21-2024 Clinisync Result Encounter Generic External Data Provider [facility] Unsolicited Start: 10-21-2024 End: 10-21-2024 ambulatory DOUGLAS DEBBIE Not Available Start: 10-21-2024 End: 10-21-2024 flow sheet Douglas Debbie DO Work Phone: [facility] Comment on above: Nausea (Primary Dx); Third trimester ([facility]); 35 weeks gestation of ([facility]); Anxiety, generalized Start: 10-14-2024 End: 10-14-2024 Clinisync Result Encounter [...] Phone: [facility] Comment on above: 22 weeks gestation o f ; Second trimester ; Diabetes mellitus screening; History of gastric bypass; Nonintractable headache, unspecified chronicity pattern, unspecified headache type Start: 07-16-2024 End: 07-16-2024 ambulatory DOUGLAS DEBBIE Not Available Start: 07-09-2024 End: 07-09-2024 ambulatory MADDIE HARP Not Available Start: 06-17-2024 End: 06-17-2024 Bamboo flowsheet Maddie WRIGHT Work Phone: [facility] Start: 06-17-2024 End: 06-17-2024 Bamboo [...] Start: 05-20-2024 End: 05-20-2024 flow sheet Douglas Deleono DO Work Phone: [facility] Comment [...] above: GA: 9w1d Start: 02-19-2024 End: 02-20-2024 Refpatrick Mccallum MD Work Phone: [facility] Comment on above: Neck pain; Cervicogenic headache Start: 02-03-2024 End: 02-03-2024 Clinisync Result Encounter Generic External Data Provider [facility] Unsolicited Start: 02-03-2024 End: 02-03-2024 Clinisync Result Encounter Generic External Data Provider [facility] Unsolicited Start: 01-16-2024 End: 01-16-2024 ambulatory XENA MCACLLUM Not Available Start: 01-11-2024 End: 01-11-2024 Orders [...] (CMS/HCC); Anxiety; Neck pain; Cervicogenic headache Start: 07-24-2023 End: 07-25-2023 ambulatory Scotty LOGAN Facility:[facility] [place] Start: 07-24-2023 End: 07-24-2023 Patient encounter procedure Scotty LOGAN [facility] Start: 05-09-2022 ambulatory CHERYL TOTH Facility:[facility] Start: 04-09-2022 End: 04-10-[address] SCOTTY LOGAN Facility:[facility] Start: 02-28-2022 End: 03-01-2022 ambulatory CHERYL TOTH Facility:[facility] Start: 12-28-2021 End: 12-29-[address] DOCTOR WHALEN Facility:[facility] Start: 09-01-2021 End: 09-02-[address] DOCTOR WHALEN Facility:[facility] Start: 08-16-2021 End: 08-16-2021 Patient encounter procedure Scotty LOGAN [facility] Start: 08-11-2021 End: 08-12-[address] DOCTOR WHALEN Facility:[facility] Start: 05-22-2021 End: 05-29-[address] DOUGLAS LEIWS Facility:[facility] Start: 05-11-2021 End: 05-14-2021 Evaluation and management of inpatient DR DOUGLAS LEWIS Facility:[facility] Procedures Date Procedure Procedure Detail Performing Clinician Start: 11-11-2024 OB BPP W NON-STRESS Generic External Data Provider Start: 11-04-2024 Urnls dip stick/tabl et rgnt non-auto w/o micrscp Douglas Debbie DO Work Phone: Start: 11-04-2024 US OB BPP W NON-STRESS Generic External Data Provider Start: 10-28-2024 US OB BPP W NON-STRESS Douglas Debbie DO Work Phone: Start: 10-21-2024 OB BPP W NON-STRESS Generic External Data Provider Start: 10-21-2024 Urnls dip stick/tabl et rgnt non-auto w/o micrscp Douglas Debbie DO Work Phone: Start: 10-21-2024 CULTURE, GROUP B STR EP WITH SUSCEPTIBLITY Douglas Debbie DO Work Phone: Start: 10-14-2024 OB BPP W NON-STRESS Generic External Data Provider Start: 10-07-2024 OB BPP W NON-STRESS Generic External Data Provider Start: 09-23-2024 Urnls dip stick/tabl et rgnt non-auto w/o micrscp Douglas Debbie DO Work Phone: Start: 07-22-2024 [facility] CMP (CMP) (FOR R EMOTE [facility] USE) Douglas Debbie DO Work Phone: Start: [...] 12-28-2024 Influenza vaccination [facility] Start: 11-19-2024 End: 11-19-2024 Patient encounter procedure 11/19/2024 9:40 AM EDT Office Visit [facility] [address] [place] [address] Douglas Lewis, DO [address] [place] [address] [facility] Start: 11-10-2024 End: 11-10-2024 Patient encounter procedure 11/10/2024 10:00 AM EDT Office Visit [facility] [address] [place] [address] Douglas Lewis, DO [address] [place] [address] [facility] Start: 11-04-2024 End: 11-04-2024 Patient encounter procedure 11/04/2024 10:50 AM EDT Routine [facility] [address] [place] [phone] Douglas Lewis, DO [address] [place] [address] [facility] Start: 10-28-2024 End: 10-28-2024 Patient encounter procedure [facility] Comment on above: Arrived Start: 10-26-2024 Influenza vaccination Influenza Vacc ine (#1) [facility] Comment on above: Postponed from 12/28 (Patient Refused) Start: 10-21-2024 End: 10-21-2024 Patient encounter procedure 10/21/2024 1:30 PM EDT Routine [facility] [address] [place] [address] Douglas Lewis, DO [address] [place] [address] [facility] Start: 10-07-2024 End: 10-07-2024 Patient encounter procedure 10/07/2024 1:50 PM EDT Routine [facility] [address] [place] [phone] Douglas Lewis, DO [address] [place] [address] [facility] Start: 09-23-2024 End: 09-23-2024 Patient encounter procedure 09/23/2024 11:30 AM EDT Routine [facility] [address] [place] [phone] Douglas Lewis, DO [address] [place] [address] [facility] Start: 09-15-2024 End: 09-15-2024 Professional / ancillary services management 09/15/2024 11:30 AM EDT Ancillary Procedure [facility] [address] [place] [phone] [facility] Start: 09-08-2024 End: 03-11-2025 US biophysical profile w non stress test US biophysical profile w non stress test Imaging Routine History of gastric bypass Expected: 09/08/2024 (Approximate), Expires: 03/11/2025 [facility] Work Phone: Comment on above: Expected: 09/08/2024 (Approximate), Expires: 03/11/2025 Start: 09-08-2024 End: 01-09-2025 US for US OB follow up transabdominal approach Imaging Routine History of gastric bypass Expected: 09/08/2024, Expires: 01/09/2025 [facility] Comment on above: Expected: 09/08/2024 , Expires: 01/09/2025 Start: 09-08-2024 End: 09-08-2024 Patient encounter procedure 09/08/2024 9:20 AM EDT Routine [facility] [address] [place] [phone] Douglas Lewis, DO [address] [place], [place] [id number] [facility] Start: 08-26-2024 End: 08-26-2024 Patient encounter procedure 08/26/2024 8:50 AM EDT Routine [facility] [address] [facility] [phone] Ingrid Villalta, [employer] [address] [place] [address] [facility] Start: 08-13-2024 End: 08-13-2024 Patient encounter procedure 08/13/2024 9:10 AM EDT Routine [facility] [address] [facility] [address] Douglas Lewis DO [address] [place], [place] [id number] [facility] Start: 07-16-2024 End: 07-16-2025 CBC panel - Blood by Automated count CBC Lab Routine 22 weeks gestation of Second trimester Diabetes mellitus screening Expected: 07/16/2024 (Approximate), Expires: 07/16/2025 [facility] Work Phone: Comment on above: Expected: 07/16/2024 (Approximate), Expires: 07/16/2025 Start: 07-16-2024 End: 07-16-2024 Patient encounter procedure [facility] Comment on above: Arrived Start: 07-15-2024 End: 07-15-2024 Alpha fetoprotein, maternal Alpha fetoprotein, maternal Lab Routine Need for maternal serum alpha-protein (MSAFP) screening Expected: 07/15/2024 (Approximate), Expires: 07/15/2024 [facility] Comment on above: Expected: 07/15/2024 (Approximate), Expires: 07/15/2024 Start: 07-09-2024 End: 07-09-2024 Professional / ancillary services management 07/09/2024 8:00 AM EDT Ancillary Procedure [facility] [address] [facility] [address] [address] [facility] Start: 06-17-2024 End: 06-17-2025 US for US OB 14+ weeks anatomy scan Imaging Routine Screening, , for anatomic survey Expected: 06/17/2024 (Approximate), Expires: 06/17/2025 [facility] Comment on above: Expected: 06/17/2024 (Approximate), Expires: 06/17/2025 Start: 06-17-2024 End: 06-17-2024 Patient encounter procedure [facility] Comment on above: Arrived Start: 05-20-2024 End: 05-20-2024 Patient encounter procedure [facility] Comment on above: Arrived Start: 04-17-2024 End: 04-17-2025 ABO/Rh ABO/Rh Lab Routine Missed menses , unspecified gestational age Expected: 04/17/2024 (Approximate), Expires: 04/17/2025 [facility] Comment on above: Expected: 04/17/2024 (Approximate), Expires: 04/17/2025 Start: 04-17-2024 End: 04-17-2025 Blood type and Indirect antibody screen panel - Blood Type and screen Lab Routine Missed menses , unspecified gestational age Expected: 04/17/2024 (Approximate), Expires: 04/17/2025 [facility] Work Phone: Comment on above: Expected: 04/17/2024 (Approximate), Expires: 04/17/2025 Start: 04-17-2024 End: 04-17-2025 Drugs of abuse panel - Urine by Screen method Rapid drug screen, urine Lab Routine , unspecified gestational age Encounter for supervision of normal first in first trimester Expected: 04/17/2024 (Approximate), Expires: 04/17/2025 [facility] Comment on above: Expected: 04/17/2024 (Approximate), Expires: 04/17/2025 Start: 04-17-2024 End: 04-17-2025 US Pelvis transvaginal US OB transvaginal Imaging Routine Missed menses Expected: 04/17/2024 (Approximate), Expires: 04/17/2025 [facility] Comment on above: Expected: 04/17/2024 (Approximate), Expires: 04/17/2025 Start: 01-16-2024 End: 01-16-2024 Professional / ancillary services management 01/16/2024 10:00 AM EDT [facility] [address] [place] [id number] [facility] CT Start: 01-11-2024 End: 01-10-2025 CT Abdomen and Pelvis WO contrast CT abdomen pelvis wo IV contrast Imaging Routine Other microscopic hematuria Expected: 01/11/2024, Expires: 01/10/2025 [facility] Work Phone: Comment on above: Expected: 01/11/2024 , Expires: 01/10/2025 Bacteria identified in Urine by Culture Urine culture Microbiology Routine Missed menses Ordered: 04/17/2024 [facility] Comment on above: Ordered: 04/17/2024 CBC W Auto Different ial panel - Blood CBC and differential Lab Routine Missed menses , unspecified gestational age Ordered: 04/17/2024 [facility] Comment on above: Ordered: 04/17/2024 CHLAMYDIA TRACHOMATI S (GENITO/STI) CHLAMYDIA TRACHOMATIS (GENITO/STI) Lab Routine Screening examination for STI Ordered: 06/17/2024 [facility] Comment on above: Ordered: 06/17/2024 Hemoglobin A1c/Hemoglobin.total in Blood Hemoglobin A1c Lab Routine Missed menses , unspecified gestational age Ordered: 04/17/2024 [facility] Comment on above: Ordered: 04/17/2024 Hemoglobin A1c/Hemoglobin.total in Blood Hemoglobin A1c Lab Routine 22 weeks gestation of Second trimester Diabetes mellitus screening History of gastric bypass Ordered: 07/16/2024 [facility] Comment on above: Ordered: 07/16/2024 Hepatitis B virus surface Ag [Presence] in Serum or Plasma by Immunoassay Hepatitis B surface antigen Lab Routine Missed menses , unspecified gestational age Ordered: 04/17/2024 [facility] Comment on above: Ordered: 04/17/2024 Hepatitis C virus Ab [Presence] in Serum or Plasma by Immunoassay Hepatitis C antibody Lab Routine Missed menses , unspecified gestational age Ordered: 04/17/2024 [facility] Comment on above: Ordered: 04/17/2024 HIV-1/HIV-2 antigen/antibody combination immunoassay HIV-1 and HIV-2 antibodies Lab Routine Missed menses , unspecified gestational age Ordered: 04/17/2024 [facility] Comment on above: Ordered: 04/17/2024 Neisseria gonorrhoea e DNA [Presence] in Unspecified specimen by DEZ with probe detection Neisseria gonorrhea DNA probe, direct Lab Routine Screening examination for STI Ordered: 06/17/2024 [facility] Comment on above: Ordered: 06/17/2024 Reagin Ab [Presence] in Serum by RPR RPR Lab Routine Missed menses , unspecified gestational age Ordered: 04/17/2024 [facility] Comment on above: Ordered: 04/17/2024 Rubella antibody, IgG Rubella an tibody, IgG Lab Routine Missed menses , unspecified gestational age Ordered: 04/17/2024 [facility] Comment on above: Ordered: 04/17/2024 SURESWAB(R) ADVANCED VAGINITIS PLUS, TMA SURESWAB(R) ADVANCED VAGINITIS PLUS, TMA Pathology and Cytology Routine Screening examination for STI Ordered: 06/17/2024 [facility] Work Phone: Comment on above: Ordered: 06/17/2024 Immunizations Immunization Date Immunization Notes Care Provider Fa cili 05-03-2020 influenza, injectabl e, quadrivalent, contains preservative Xena Mccallum MD Work Phone: [facility] 05-03-2020 influenza virus vacc ine, unspecified formulation Xena Mccallum MD Work Phone: [facility] 01-29-2018 influenza, injectabl e, quadrivalent, contains preservative Xena Mccallum MD Work Phone: [facility] 02-21-2016 influenza, seasonal, injectable, preservative free Xena Mccallum MD Work Phone: [facility] Payers Date Payer Category Payer [facility] [id number] 2023 Unknown [id number] 2022 Medicaid [employer] [place] [employer] [id number] 2022-Present [address] [place] [address] [id number] 2022 Medicaid (Managed Care) [employer] [id number] 1995 Unknown [id number] 2.16.840.1.331991.3.579.2. 593 1995 Unknown [id number] 2.16.840.1.587991.3.579.2. 593 1995 Unknown [id number] 2.16.840.1.346518.3.579.2. 593 1995 Unknown [id number] 2.16.840.1.482099.3.579.2. 593 1995 Unknown [id number] 2.16.840.1.963708.3.579.2. 593 1995 Unknown [id number] 2.16.840.1.322831.3.579.2. 593 1995 Unknown [id number] 2.16.840.1.312688.3.579.2. 593 1995 Unknown [id number] 2.16.840.1.759425.3.579.2. 593 1995 Unknown [id number] 2.16.840.1.801304.3.579.2. 593 1995 Unknown [id number] 2.16.840.1.742358.3.579.2. 727 1995 Unknown [id number] 2.16.840.1.349524.3.579.2. 1259 1995 Unknown [id number] 2.16.840.1.787540.3.579.2. 1259 1995 Unknown [id number] 2.16.840.1.575307.3.579.2. 1259 1995 Unknown [id number] 2.16.840.1.368021.3.579.2. 1259 1995 Unknown [id number] 2.16.840.1.743373.3.579.2. 1259 1995 Unknown [id number] 2.16.840.1.789771.3.579.2. 1259 1995 Unknown [id number] 2.16.840.1.089643.3.579.2. 1259 1995 Unknown [id number] 2.16.840.1.104965.3.579.2. 1259 1995 Unknown [id number] 2.16.840.1.030323.3.579.2. 9 1995 Unknown [id number] 2.16.840.1.248276.3.579.2. 1259 1995 Unknown [id number] 2.16.840.1.715501.3.579.2. 1259 1995 Unknown [id number] 2.16.840.1.760416.3.579.2. 1259 1995 Unknown [id number] 2.16.840.1.361120.3.579.2. 1258 1995 Unknown [id number] 2.16.840.1.443169.3.579.2. 9 1995 Unknown [id number] 2.16.840.1.925042.3.579.2. 1259 1959 Self-pay [id number] 1959 Unknown [id number] Social History Date Type Detail Facility Start: 04-29-2020 End: 06-18-2023 Tobacco smoking status Never smoked tobacco (finding) [facility] Comment on above: Pt. denies Tobacco smoking status Never [facility] Comment on above: Pt. denies Start: 06-18-2023 End: 01-13-2024 Sex Assigned At Female [facility] Start: 06-18-2023 Tobacco use and exposure Smokeless tobacco non-user [facility] Start: 01-13-2024 End: 11-04-2024 Alcoholic beverage intake Current drinker of alcohol [...] [facility] Clinical Notes 05-11-2021 to 11-04-2024 Thelma Perry LPN - 11/04/2024 10:50 AM KYLE Pinto - 10/28/2024 9:00 AM Yimi Villalta NP - 10/21/2024 1:30 PM López Perry LPN - 10/07/2024 1:50 PM EDT Note Date & Type Note Facility 11-04-2024 History of Presen t illness Narrative Reason for Appointment: Patient ID: Tan Mars is a 29 y.o. female who presents for Routine Visit Patient presents today for Return OB appointment. MEDICATIONS Current Outpatient Medications Medication Instructions busPIRone (BUSPAR) 10 mg, Oral, As needed Calcium Carbonate (CALCIUM 500 PO) 1 tablet, Daily citalopram (CELEXA) 20 mg, Oral, Daily Ferrous Sulfate (iron) 325 (65 Fe) MG [...] 08/10/2021 Insomnia 06/18/2023 22 weeks gestation of ([facility]) 07/16/2024 Second trimester ([facility]) 07/16/2024 Resolved Ambulatory Problems Diagnosis Date Noted [...] COSMETIC SURGERY 05/17/2020 [facility] [place] ELBOW SURGERY Left 2000 OTHER SURGICAL HISTORY [...] nursing note reviewed. Exam conducted with a patient's librarian present. Vitals: Estimated body mass index is 33.25 kg/m as calculated from the following: Height as of 24: 5' 1 . Weight as of this encounter: 176 lb. BP: 120/80 Patient's last menstrual period was 02/13/2024. ASSESSMENT & PLAN ICD-10-CM 1. 37 weeks gestation of ([facility]) Z3A.37 POCT urinalysis dipstick manually resulted 2. Third trimester ([facility]) Z34.93 POCT urinalysis dipstick manually resulted 3. Anxiety, generalized F41.1 4. History of gastric bypass Z98.84 Return OB: Patient presents today for a routine obstetrics appointment. Patient is currently 37w6d . Patient states she is doing well but has complaints of being tired due to current . Patient has verbalizes frequent movement. labor precautions was discussed/given and patient was instructed to perform kick counts three times a day. Orders Placed This Encounter Procedures POCT urinalysis dipstick manually resulted Follow Up: Patient is to return to office in 1 week for routine OB appointment. Documented by Thelma Perry LPN on behalf of: Douglas Lewis DO documented in this encounter [facility] 10-28-2024 History of Presen t illness Narrative [...] 08/10/2021 Insomnia 06/18/2023 22 weeks gestation of ([facility]) 07/16/2024 Second trimester ([facility]) 07/16/2024 Resolved Ambulatory Problems Diagnosis Date Noted [...] COSMETIC SURGERY 05/17/2020 [facility] [place] ELBOW SURGERY Left 2000 OTHER SURGICAL HISTORY [...] ASSESSMENT & PLAN ICD-10-CM 1. Third trimester ([facility]) Z34.93 2. 36 weeks gestation of ([facility]) Z3A.36 Return OB: Patient presents today for [...] of: KYLE Martinez documented in this encounter [facility] 10-21-2024 History of Presen t illness Narrative Reason [...] 08/10/2021 Insomnia 06/18/2023 22 weeks gestation of ([facility]) 07/16/2024 Second trimester ([facility]) 07/16/2024 Resolved Ambulatory Problems Diagnosis Date Noted [...] COSMETIC SURGERY 05/17/2020 [facility] [place] ELBOW SURGERY Left 2000 OTHER SURGICAL HISTORY [...] nursing note reviewed. Exam conducted with a patient's librarian present. Vitals: Estimated body mass index is 33.35 kg/m as calculated from the following: Height as of 01/09/24: 5' 1 . Weight as of this encounter: 176 lb 8 oz. BP: 120/84 Patient's last menstrual period was 02/13/2024. ASSESSMENT & PLAN ICD-10-CM 1. Third trimester ([facility]) Z34.93 POCT urinalysis dipstick manually resulted CULTURE, GROUP B STREP WITH SUSCEPTIBLITY CULTURE, GROUP B STREP WITH SUSCEPTIBLITY 2. 35 weeks gestation of ([facility]) Z3A.35 Return OB: Patient presents today for [...] Douglas Lewis DO documented in this encounter [facility] 10-07-2024 History of Presen t illness Narrative [...] Active Ambulatory Problems Diagnosis Date Noted Depression ([facility]) 06/18/2023 Anemia 06/18/2023 Anxiety 06/18/2023 Recurrent nephrolithiasis 09/05/2016 Essential thrombocythemia ([facility]) 06/18/2023 Gastric bypass status for [...] COSMETIC SURGERY 05/17/2020 [facility] [place] ELBOW SURGERY Left 2000 OTHER SURGICAL HISTORY [...] nursing note reviewed. Exam conducted with a patient's librarian present. Vitals: Estimated body mass index is [...] Douglas Lewis DO documented in this encounter [facility] 09-23-2024 History of Presen t illness Narrative [...] Active Ambulatory Problems Diagnosis Date Noted Depression ([facility]) 06/18/2023 Anemia 06/18/2023 Anxiety 06/18/2023 Recurrent nephrolithiasis 09/05/2016 Essential thrombocythemia ([facility]) 06/18/2023 Gastric bypass status for [...] COSMETIC SURGERY 05/17/2020 [facility] [place] ELBOW SURGERY Left 1999 OTHER SURGICAL HISTORY [...] nursing note reviewed. Exam conducted with a patient's librarian present. Vitals: Estimated body mass index is [...] Douglas Lewis DO documented in this encounter [facility] 09-08-2024 History of Presen t illness Narrative [...] Active Ambulatory Problems Diagnosis Date Noted Depression ([facility]) 06/18/2023 Anemia 06/18/2023 Anxiety 06/18/2023 Recurrent nephrolithiasis 09/05/2016 Essential thrombocythemia ([facility] 06/18/2023 Gastric bypass status for obesity 08/10/2021 [...] COSMETIC SURGERY 05/17/2020 [facility] [place] ELBOW SURGERY Left 2000 OTHER SURGICAL HISTORY [...] nursing note reviewed. Exam conducted with a patient's librarian present. Vitals: Estimated body mass index is [...] week for routine OB appointment. Documented by Thelam Perry LPN on behalf of: Douglas Lewis DO documented in this encounter [facility] 08-13-2024 History of Presen t illness Narrative [...] Active Ambulatory Problems Diagnosis Date Noted Depression ([facility]) 06/18/2023 Anemia 06/18/2023 Anxiety 06/18/2023 Recurrent nephrolithiasis 09/05/2016 Essential thrombocythemia ([facility]) 06/18/2023 Gastric bypass status for [...] Metal plate in upper extremity Nephrolithiasis Pneumonia 2016 HISTORY PAST MEDICAL HISTORY SOCIAL HISTORY Past [...] COSMETIC SURGERY 05/17/2020 [facility] [place] ELBOW SURGERY Left 2000 OTHER SURGICAL HISTORY [...] nursing note reviewed. Exam conducted with a patient's librarian present. Vitals: Estimated body mass index is [...] Douglas Lewis DO documented in this encounter [facility] 07-16-2024 History of Presen t illness Narrative [...] Active Ambulatory Problems Diagnosis Date Noted Depression ([facility]) 06/18/2023 Anemia 06/18/2023 Anxiety 06/18/2023 Recurrent nephrolithiasis 09/05/2016 Essential thrombocythemia ([facility]) 06/18/2023 Gastric bypass status for [...] COSMETIC SURGERY 05/17/2020 [facility] [place] ELBOW SURGERY Left 2000 OTHER SURGICAL HISTORY [...] nursing note reviewed. Exam conducted with a patient's librarian present. Vitals: Estimated body mass index is [...] Maddie Harp PA-C documented in this encounter [facility] 06-17-2024 History of Presen t illness Narrative [...] Active Ambulatory Problems Diagnosis Date Noted Depression ([facility]) 06/18/2023 Anemia 06/18/2023 Anxiety 06/18/2023 Recurrent nephrolithiasis 09/05/2016 Essential thrombocythemia ([facility]) 06/18/2023 Gastric bypass status for [...] COSMETIC SURGERY 05/17/2020 [facility] [place] ELBOW SURGERY Left 1999 OTHER SURGICAL HISTORY [...] nursing note reviewed. Exam conducted with a patient's librarian present. Vitals: Estimated body mass index is [...] of: KYLE Martinez documented in this encounter [facility] 05-20-2024 History of Presen t illness Narrative [...] Active Ambulatory Problems Diagnosis Date Noted Depression ([facility]) 06/18/2023 Anemia 06/18/2023 Anxiety 06/18/2023 [...] COSMETIC SURGERY 05/17/2020 [facility] [place] ELBOW SURGERY Left 2000 OTHER SURGICAL HISTORY [...] nursing note reviewed. Exam conducted with a patient's librarian present. Vitals: Estimated body mass index is [...] or undercooked meat, and stay away from [facility]. Patient has been consulted regarding any further do's and don'ts of . Patient voiced understanding and all questions and concerns were answered. Orders Placed This Encounter Procedures POCT urinalysis dipstick manually resulted Follow Up: Patient is to return in 4 weeks for routine OB appointment. Documented by Thelma Perry LPN on behalf of: Douglas Lewis DO documented in this encounter [facility] 04-17-2024 History of Presen t illness Narrative Reason for Appointment: Patient ID: Tan MARS is a 29 y.o. female who presents for Amenorrhea Patient presents today for a Nurse OB Intake appointment. Patient is 9w1d with a Estimated Date of Delivery: 11/19/24 OB History Para Term AB Living 1 SAB IAB Ectopic Multiple Live Births # Outcome Date GA Lbr Abrahma/2nd Weight Sex Type Anes PTL Lv 1 [...] COSMETIC SURGERY 05/17/2020 [facility] [place] ELBOW SURGERY Left 1999 OTHER SURGICAL HISTORY [...] or undercooked meat, and stay away from [facility]. Patient has also been advised [...] Cecy Nicholas MA documented in this encounter [facility] 02-20-2024 Telephone encounter Note Approvals with refills [facility] 02-20-2024 Miscellaneous Notes Approvals with refills documented in this encounter [facility] 01-09-2024 History of Presen t illness [...] COSMETIC SURGERY 05/17/2020 [facility] [place] ELBOW SURGERY Left 1999 OTHER SURGICAL HISTORY [...] Assessment & Plan documented in this encounter [facility] 01-09-2024 Telephone encounter Note Patient is losing her insurance any day now. Can you refill all these for 90 days? Uses [facility] in [place]. She recently got and is switching to her husbands insurance. Thank you [facility] 01-09-2024 Miscellaneous Notes Patient is losing her insurance any day now. Can you refill all these for 90 days? [facility]ses [facility] [place]. She recently got and is switching to her husbands insurance. Thank you documented in this encounter [facility] 08-16-2021 [facility] Discharg e instructions Follow Up Care 08/16/2021 11:11:34 With:DESMOND BURKS, JANELL Valentine Address: [address] [place] [address]- When: Unknown [facility] 08-16-2021 Hospital Discharg e instructions Patient Education 08/16/2021 11:04:11 Kidney Stones, Qzlk-df-Wsid Kidney Stones Kidney stones are rock-like masses [...] Follow these instructions at home: Medicines Take svqe-etw-lntdaae and prescription medicines only as told by [...] 10/01/2008 Document Revised: 09/01/2019 Document Reviewed: 09/01/2019 [employer] Patient Education 2020 [employer] 08/16/2021 11:04:10 Calorie Counting for Weight Loss [...] 04/15/2006 Document Revised: 01/02/2019 Document Reviewed: 03/15/2017 [employer] Patient Education [employer]. Follow Up Care 03/22/2021 11:46:26 With:DESMOND BURKS, Scotty English, URL Address: When:Within 6 Month(s) Comments:w/MAGALYS [facility] 05-11-2021 Note DISCHARGE SUMMARY PRIMARY DIAGNOSES: [...] pain free and no longer on narcotics. [facility] Signed and Approved by: DR DOUGLAS LEWIS . 06/08/2021 22:19:00 [facility] 05-11-2021 Note OPERATIVE NOTE PROCEDURE: Primary low transverse section. PREOPERATIVE DIAGNOSIS: 1. Intrauterine at 39 weeks. 2. Non-reassuring heart tones. POSTOPERATIVE DIAGNOSIS: 1. Intrauterine at 39 weeks. 2. Non-reassuring heart tones. SURGEON: Douglas Lewis D.O. RELAY CHECKER: MELINA ANESTHESIA: Epidural with Duramorph. BLOOD LOSS: [...] to the Recovery Room in stable condition. [facility] Signed and Approved by: DR DOUGLAS LEWIS . 06/08/2021 22:19:00 [facility] Evaluation + Plan note Future Appointments Appointment Date:09/19/2021 11:00:00 AM Scheduled Provider:Scotty LOGAN MD Location:[facility] Appointment Type:URO Phone Visit Appointment Date:02/21/2022 11:15:00 AM Scheduled Provider:Scotty LOGAN MD Location:[facility] Appointment Type:URO Office Visit [facility] Evaluation note Diagnosis Neck pain Cervicalgia Cervicogenic headache Headache [facility] Diagnosis Intractable chronic migraine without aura and with status migrainosus ([facility]) Anxiety Anxiety state, unspecified Neck pain Cervicalgia [...] of ([facility]) [facility] Diagnosis Nausea- Primary Nausea alone Third trimester ([facility]) state, incidental 35 weeks gestation of ([facility]) Anxiety, generalized [facility] Diagnosis 37 weeks gestation of ([facility]) Third trimester ([facility]) state, incidental Anxiety, generalized History of gastric bypass [facility] Narrative No data available for this section [facility] Progress note No data available for this section [facility] Summary Purpose Family History No Family [...] IV contrast Xena Mccallum MD [address] [place] [address] Referral ID Status Reason Start Date Expiration Date V isits Requested Visits Authorized [id number] Pending Review 01/11/2024 07/09/2024 1 1 Additional Source Comments INFORMATION SOURCE (unrecogn ized section and content) DATE CREATED AUTHOR 10/05/2018 [facility] DATE CREATED AUTHOR AUTHOR'S ORGANIZ ATION 06/06/2021 [facility] DATE CREATED AUTHOR AUTHOR'S ORGANIZ ATION 07/13/2021 [facility] dical Specialist DATE CREATED AUTHOR AUTHOR'S ORGANIZ ATION 05/09/2022 [facility] DATE CREATED AUTHOR AUTHOR'S ORGANIZ ATION 07/26/2023 [facility] DATE CREATED AUTHOR AUTHOR'S ORGANIZ ATION 11/08/2024 [facility] dical Specialists EPIC Patient Care team informatio n (unrecognized section and content) Rn Allergy Relationship Specialty Start Date End Date Xena Mccallum MD [address] [place] [address] PCP - General Family Medicine 09/04/22 Isabel Li, MAGNETIC TESTER [address] [place] [address] PCP - [facility] 10/28/23 Rn Allergy Relationship Specialty Start Date End Date Xena Mccallum MD [address] [place] [address] PCP - General Family Medicine 09/04/22 Isabel Li, JENNY [address] [place] [address] PCP - [facility] 10/28/23 Rn Allergy Relationship Specialty Start Date End Date Xena Mccallum MD [address] [place] [address] PCP - General Family Medicine 09/04/22 Isabel Li, JENNY [address] [place] [address] PCP - [facility] 10/28/23 Rn Allergy Relationship Specialty Start Date End Date Xena Mccallum MD [address] [place] [address] PCP - General Family Medicine 09/04/22 Isabel Li, JENNY [address] [place] [address] PCP - [facility] 10/28/23 Rn Allergy Relationship Specialty Start Date End Date Xena Mccallum MD [address] [place] [address] PCP - General Family Medicine 09/04/22 Isabel Li, MAGNETIC TESTER [address] [place] [place] [address] PCP - [facility] 10/28/23 Rn Allergy Relationship Specialty Start Date End Date Xena Mccallum MD [address] [facility] [place] [address] PCP - General Family Medicine 09/04/22 Isabel Li, MAGNETIC TESTER PCP - [facility] 10/28/23 Rn Allergy Relationship Specialty Start Date End Date Xena Mccallum MD [address] [facility] [place] [address] PCP - General Family Medicine 09/04/22 Isabel Li, MAGNETIC TESTER PCP - [facility] 10/28/23 Rn Allergy Relationship Specialty Start Date End Date Xena Mccallum MD [address] [place] [address] PCP - General Family Medicine 09/04/22 Isabel Li MAGNETIC TESTER PCP - [facility] 10/28/23 Rn Allergy Relationship Specialty Start Date End Date Xena Mccallum MD [address] [place] [address] PCP - General Family Medicine 09/04/22 Isabel Li MAGNETIC TESTER PCP - [facility] 10/28/23 Rn Allergy Relationship Specialty Start Date End Date Xena Mccallum MD [address] [place] [address] PCP - General Family Medicine 09/04/22 Isabel Li NP PCP [facility] 10/28/23 Rn Allergy Relationship Specialty Start Date End Date Xena Mccallum MD [address] [place] [address] PCP - General Family Medicine 09/04/22 Isabel Li MAGNETIC TESTER PCP [facility] 10/28/23 Rn Allergy Relationship Specialty Start Date End Date Xena Mccallum MD [address] [place] [address] PCP - General Family Medicine 09/04/22 Isabel Li MAGNETIC TESTER PCP [facility] 10/28/23 Rn Allergy Relationship Specialty Start Date End Date Xena Mccallum MD [address] [facility] [place] [address] PCP - General Family Medicine 09/04/22 Isabel Li MAGNETIC TESTER PCP - [facility] 10/28/23 Rn Allergy Relationship Specialty Start Date End Date Xena Mccallum MD [address] [place] [address] PCP - General Family Medicine 09/04/22 Isabel Li MAGNETIC TESTER PCP - [facility] 10/28/23 Rn Allergy Relationship Specialty Start Date End Date Xena Mccallum MD [address] [place] [address] PCP - General Family Medicine 09/04/22 Isabel Li NP PCP [facility] 10/28/23 Rn Allergy Relationship Specialty Start Date End Date Xena Mccallum MD [address] [place] [address] PCP - General Family Medicine 09/04/22 Isabel Li MAGNETIC TESTER PCP [facility] 10/28/23 Rn Allergy Relationship Specialty Start Date End Date Xena Mccallum MD [address] [place] [address] PCP - General Family Medicine 09/04/22 Isabel Li MAGNETIC TESTER PCP [facility] 10/28/23 Rn Allergy Relationship Specialty Start Date End Date Xena Mccallum MD [address] [facility] [place] [address] PCP - General Family Medicine 09/04/22 Isabel Li MAGNETIC TESTER [facility] 10/28/23 Rn Allergy Relationship Specialty Start Date End Date Xena Mccallum MD [address] [place] [address] PCP - General Family Medicine 09/04/22 Isabel Li MAGNETIC TESTER [facility] 10/28/23 Rn Allergy Relationship Specialty Start Date End Date Xena Mccallum MD [address] [place] [address] PCP - [facility] 09/04/22 Isabel Li NP [facility] 10/28/23 Rn Allergy Relationship Specialty Start Date End Date Xena Mccallum MD [address] [place] [address] PCP - [facility] 09/04/22 Isabel Li MAGNETIC TESTER [facility] 10/28/23 Reason for Visit (unrecogniz ed section [...] BE BASED ON THE PRIMARY CLINICAL RECORDS. [facility] [email or web address] [facility]. provides no warranty or guarantee of the accuracy or completeness of information in this document.
[2024-11-12] MEDS: 0.9 % SODIUM CHLORIDE 1,000 ML 1000 ML IV ×2 (06:05→07:05)
[2024-11-12 06:28] LABS: Hematocrit 32.8 % (36.0-48.0); Hemoglobin 10.1 g/dL (12.0-16.0); Immature Granulocytes Abs Auto 0.04 10^3/uL (0.00-0.03); Immature Granulocytes Pct Auto 0.4 % (0.0-0.5); Lymphocytes Absolute Auto 3.5 10^3/uL (1.2-3.8); Mean Corpuscular HGB Conc 30.8 g/dL (29.9-35.2); Mean Corpuscular Hemoglobin 21.4 pg (26.7-34.0); Mean Corpuscular Volume 69.6 fL (81.0-99.0); Platelet Count 313 10^3/uL (150-450); Red Blood Count 4.71 10^6/uL (4.20-5.40); White Blood Count 9.0 10^3/uL (4.0-11.0)
[2024-11-12] MEDS: FAMOTIDINE/PF 20 MG/2 ML VIAL IV (07:32)
[2024-11-12] MEDS: CITRIC ACID/SODIUM CITRATE 30 ML SOLUTION ORACIT SHOHL'S SOLN PO (07:32)
[2024-11-12] MEDS: CEFAZOLIN SODIUM/DEXTROSE,ISO 2 GM/50 ML PIGGYBACK IV ×2 (07:34→13:40)
[2024-11-12 08:08] LABS: Cannabinoid Screen Urine NEGATIVE (NEGATIVE); Methamphetamines Screen Urine NEGATIVE (NEGATIVE); Tricyclic Antidepressant Urine NEGATIVE (NEGATIVE)
--- NOTE | 2024-11-12 08:35 | PM.OBPRCCS ---
Procedure Pre-op/Post-op diagnoses: Pre-Op/Post-Op Diagnoses Operation Date: 11/12/24 07:30 <No data on this case meets the specified criteria> Procedure: Procedures Operation Date: 11/12/24 07:30 Actual Procedure Side Surgeon p Repeat Not Applicable Douglas Lewis DO Chief Of [employer] Patrol: Talya Ramos Disposition: PACU Anesthesia type: Spinal
--- NOTE | 2024-11-12 08:36 | PM.ONB ---
Brief Operative Note Date of procedure: 11/12/24 Pre-op diagnosis general: iup at 39wks, previous c/s Post-op diagnosis: same as pre-op Procedure: NAME OF PROCEDURE: [ section ] PROCEDURE: Patient was taken back to the Operating Room where she was given a spinal anesthesia with Duramorph without difficulty. She was prepped and draped in the normal sterile fashion. A Pfannenstiel skin incision was then made 2 cm above the symphysis pubis and carried down to underlying rectus fascia using a Bovie. The fascia was incised in the midline and extended laterally using Thomas scissors. Two Tone clamps were placed on the superior aspect of the fascia and dissected off the underlying rectus muscles. The same was performed on the inferior aspect as well. The muscles were then in the midline. Peritoneum was identified and entered bluntly. The peritoneum was then extended superiorly and inferiorly with good visualization of the bladder. The bladder blade was inserted. A low transverse incision was made on the patient's uterus and extended laterally digitally. The was then delivered atraumatically after the bladder blade was removed in the cephalic position. The cord was clamped and cut. Cord blood was obtained. The was handed off to awaiting team. The patient's placenta was spontaneously delivered. The uterus was then exteriorized. The uterus was cleared of all clots and debris. The bladder blade was reinserted. The patient's uterine incision was closed using #0 Vicryl in a running lock fashion. Excellent hemostasis was assured. The uterus was then returned to the patient's abdomen. The patient's abdomen was copiously irrigated using warm saline. Peritoneal gutters were cleared of all clots and debris. Again excellent hemostasis was assured. The patient's peritoneum was closed using 3-0 Vicryl in a running fashion. The patient's fascia was closed using #0 Vicryl in a running fashion. The patient's skin was closed using 4-0 Vicryl subcuticularly. The patient tolerated the procedure well. Sponge, lap, and needle counts were correct x2. The patient was taken to the Recovery Room in stable condition. Anesthesia: spinal Surgeon: Douglas Lewis Earth Science Technical Officer: Talya Ramos Estimated blood loss (mL): 575 Pathology: other (placenta) Condition: stable Disposition: PACU Urinary Catheter Management Urinary Catheter Management Urethral: Cath placed during this visit: no
[2024-11-12] MEDS: 0.9 % SODIUM CHLORIDE 1,000 ML 125 ML IV (13:40)
[2024-11-12] MEDS: KETOROLAC TROMETHAMINE 30 MG/ML VIAL IVP ×2 (16:30→23:09)
[2024-11-12] MEDS: OXYCODONE HCL/ACETAMINOPHEN 5MG/325MG 2 TAB PO ×2 (17:29→21:30)
[2024-11-12] MEDS: ENOXAPARIN SODIUM 40 MG/0.4 ML SYRINGE SUBQ (20:46)
[2024-11-12] MEDS: LABETALOL HCL 100 MG TABLET 200 MG PO (22:06)
[2024-11-13] VITALS (7 sets, daily range): BP systolic 117–131; BP diastolic 74–96; PULSE 89–91; TEMP 36.8–37.1
[2024-11-13] MEDS: OXYCODONE HCL/ACETAMINOPHEN 5MG/325MG 2 TAB PO ×3 (04:43→19:32)
[2024-11-13 06:33] LABS: Hematocrit 25.4 % (36.0-48.0); Hemoglobin 7.6 g/dL (12.0-16.0); Immature Granulocytes Abs Auto 0.11 10^3/uL (0.00-0.03); Immature Granulocytes Pct Auto 0.7 % (0.0-0.5); Lymphocytes Absolute Auto 4.6 10^3/uL (1.2-3.8); Mean Corpuscular HGB Conc 29.9 g/dL (29.9-35.2); Mean Corpuscular Hemoglobin 21.0 pg (26.7-34.0); Mean Corpuscular Volume 70.2 fL (81.0-99.0); Platelet Count 244 10^3/uL (150-450); Red Blood Count 3.62 10^6/uL (4.20-5.40); White Blood Count 15.5 10^3/uL (4.0-11.0)
--- NOTE | 2024-11-13 08:27 | PM.OBPN ---
OB - PN: Subj Subjective Patient comments: no complaints and pain well controlled [place] status: doing well Exam Constitutional Vital Signs, click to edit/add: Last Vital Signs Temp 98.8 F 11/13/24 04:33 Pulse 75 11/12/24 11:05 Resp 16 11/13/24 04:30 BP 131/96 H 11/13/24 04:33 Pulse Ox 98 11/12/24 11:05 O2 Del Method Room Air 11/13/24 04:30 Documenting provider has reviewed patient's vital signs: yes Common normals: no apparent distress Respiratory Common normals: normal respiratory effort and clear to auscultation bilaterally Cardio Common normals: regular rate and regular rhythm GI Common normals: Normal to inspection, nondistended, normoactive bowel sounds present Extremity Common normals: no clubbing, cyanosis or edema and no calf tenderness Results Labs Labs: Short CBC 11/13/24 Range/Units 06:16 WBC 15.5 H (4.0-11.0) 10^3/uL Hgb 7.6 L (12.0-16.0) g/dL Hct 25.4 L (36.0-48.0) % Plt Count 244 (150-450) 10^3/uL Urinary Catheter Management Urinary Catheter Management Urethral: Cath placed during this visit: yes, but has since been removed by the nurse Insertion date: 11/12/24 Insertion time: 07:50 Removal date: 11/12/24 Removal time: 16:10 OB - PN: A/P Plan - day: 1 Plan: routine postop care Time Spent with Patient Time: Total time spent is greater than 50% in coordination of care (as documented) at patient's floor/unit and/or counseling patient: Total time spent with greater than 50% in coordination of care (as documented) at patient's floor/unit and/or counseling patient: less than 15 minutes
[2024-11-13] MEDS: KETOROLAC TROMETHAMINE 30 MG/ML VIAL IVP ×2 (13:33→19:34)
[2024-11-13] MEDS: LABETALOL HCL 100 MG TABLET 200 MG PO (21:52)
[2024-11-13] MEDS: ENOXAPARIN SODIUM 40 MG/0.4 ML SYRINGE SUBQ (21:52)
[2024-11-14] MEDS: KETOROLAC TROMETHAMINE 30 MG/ML VIAL IVP (01:47)
[2024-11-14] MEDS: OXYCODONE HCL/ACETAMINOPHEN 5MG/325MG 2 TAB PO ×2 (01:47→06:44)
[2024-11-14 01:54] VITALS: BP 124/81; TEMP 36.9
[2024-11-14 08:42] VITALS: BP 122/88; TEMP 36.6
[2024-11-14] MEDS: IBUPROFEN 400 MG TABLET 800 MG PO (08:49)
[2024-11-14] MEDS: LABETALOL HCL 100 MG TABLET 200 MG PO (08:49)
--- NOTE | 2024-11-14 09:17 | PM.OBPN ---
OB - PN: Subj Subjective Patient comments: no complaints [place] status: doing well Exam Constitutional Vital Signs, click to edit/add: Last Vital Signs Temp 97.9 F 11/14/24 08:42 Pulse 89 11/13/24 16:21 Resp 18 11/14/24 08:42 BP 122/88 11/14/24 08:42 Pulse Ox 98 11/12/24 11:05 O2 Del Method Room Air 11/14/24 08:45 Common normals: no apparent distress GI Inspection: normal to inspection Other: Incision - dry and intact with steri strips, no erythema Other: uterus - firm, below umbilicus perineum - minimal bleeding Neuro Common normals: oriented x3 Psych Common normals: mental status grossly normal Urinary Catheter Management Urinary Catheter Management Urethral: Cath placed during this visit: yes, but has since been removed by the nurse Insertion date: 11/12/24 Insertion time: 07:50 Removal date: 11/12/24 Removal time: 16:10 OB - PN: A/P Assessment and Plan (1) Term delivered: Plan ok for discharge follow up as scheduled Plan - day: 2 Plan: routine postop care and discharge home Time Spent with Patient Time: Total time spent is greater than 50% in coordination of care (as documented) at patient's floor/unit and/or counseling patient: Total time spent with greater than 50% in coordination of care (as documented) at patient's floor/unit and/or counseling patient: less than 15 minutes
[2024-11-14] MEDS: ONDANSETRON 4 MG RAPDIS TABLET PO (11:17)
--- NOTE | 2024-11-14 14:19 | RESP.RT ---
Done per nursing
== END 2024-11-14 12:00 | disposition home or self-care (01) | DRG 788 ==
PROVIDERS: Admitting Provider Obstetrics & Gynecology; PCP Family Medicine; Visit Provider Obstetrics & Gynecology
PROC: 10D00Z1 Extraction of Products of Conception, Low, Open Approach (ICD-10-PCS; CPT 59514; principal; 2024-11-12 07:30)
DX: O34.211 Maternal care for low transverse scar from previous cesarean delivery (principal); Z3A.39 39 weeks gestation of pregnancy; Z37.0 Single live birth; Z87.442 Personal history of urinary calculi; Z90.49 Acquired absence of other specified parts of digestive tract; O99.844 Bariatric surgery status complicating childbirth
CPT/HCPCS: 36415; 51702; 64488; 80307; 85025; 86850; 86900; 86901; 88307; 94667; 94668; J0131; J0665; J0690; J1100; J1200; J1650; J1885; J2274; J2371; J2405; J2590; J3490; Q0162

== ENCOUNTER 2025-01-02 15:35 | Emergency (ER) | payer BC, SELFPAY ==
--- OUTSIDE RECORDS SUMMARY | 2024-03-19 09:15 | XMS_ITS | Continuity of Care Document ---
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 [employer] [facility], [address] [facility] [address], [place], [place], [address], [place] tel:[phone] [facility] No Information Sascha Alba. [address] [place] [address] [address], [place], [place], [address], [place]. tel:[phone] Referring Provider: Anjali Caicedo, [address] [place] [address] [address], [place], [address]. tel:[phone] OFFICE/OUTPATI ENT VISIT, [facility] [employer] [facility], [address] [place] [address] [address], [place], [place], [address], [place] tel:[phone] [facility] No Information Endy Cordero. [address] [place] [address] [address], [place], [place], [address], [place]. tel:[phone] Referring Provider: Gil Bentley, [address] [place] [address] [address], [place], [address]. tel:[phone] OFFICE/OUTPATI ENT VISIT, [facility] [employer] [facility], [address] [place] [address] [address], [place], [place], [address], [place] tel:[phone] [facility] No Information Endy Cordero. [address] [place] [address] [address], [place], [place], [address], [place]. tel:[phone] Referring Provider: Gil Bentley, [address] [place] [address] [address], [place], [address]. tel:[phone], [address] [place] [address] [address], [place], [place], [address], [place] tel:[phone] [facility] No Information Sascha Alba. [address] [place] [address] [address], [place], [place], [address], [place]. tel:[phone] Referring Provider: Anjali Caicedo, [address] [place] [address] [address], [place], [address]. tel:[phone], [address] [place] [address] [address], [place], [place], [address], [place] tel:[phone] [facility] No Information Sascha Alba. [address] [facility] [address], [place], [place], [address], [place]. tel:[phone] Referring Provider: Anjali Caicedo, [address] [place] [address] [address], [place], [address]. tel:[phone] [facility], [address] [place] [address] [address], [place], [place], [address], [place] tel:[phone] [facility] No Information Sascha Alba. [address] [place] [address] [address], [place], [place], [address], [place]. tel:[phone] Referring Provider: Anjali Caicedo, [address] [place] [address] [address], [place], [address]. tel:[phone] [employer] [facility], [address] [place] [address] [address], [place], [place], [address], [place] tel:[phone] [facility] No Information Endy Cordero. [address] [place] [address] [address], [place], [place], [address], [place]. tel:[phone] Referring Provider: Gil Bentley, [address] [place] [address] [address], [place], [address]. tel:[phone] OFFICE/OUTPATI ENT VISIT, [facility] [employer] [facility], [address] [place] [address] [address], [place], [place], [address], [place] tel:[phone] [facility] No Information Endy Cordero. [address] [place] [address] [address], [place], [place], [address], [place]. tel:[phone] Referring Provider: Gil Bentley, [address] [place] [address] [address], [place], [address]. tel:[phone] OFFICE/OUTPATI ENT VISIT, [facility] [employer] [facility], [address] [place] [address] [address], [place], [place], [address], [place] tel:[phone] [facility] No Information Sascha Alba. [address] [facility] [address], [place], [place], [address], [place]. tel:[phone] Referring Provider: Anjali Caicedo, [address] [place] [address] [address], [place], [address]. tel:[phone] [facility], [address] [place] [address] [address], [place], [place], [address], [place] tel:[phone] [facility] No Information Endy Cordero. [address] [facility] [address], [place], [place], [address], [place]. tel:[phone] Referring Provider: Gil Bentley, [address] [place] [address] [address], [place], [address]. tel:[phone] OFFICE/OUTPATI ENT VISIT, [facility] [employer] [facility], [address] [place] [address] [address], [place], [place], [address], [place] tel:[phone] [facility] No Information Sascha Alba. [address] [place] [address] [address], [place], [place], [address], [place]. tel:[phone] Referring Provider: Anjali Caicedo, [address] [place] [address] [address], [place], [address]. tel:[phone] OFFICE/OUTPATI ENT VISIT, [facility] [employer] [facility], [address] [place] [address] [address], [place], [place], [address], [place] tel:[phone] [facility] No Information Sascha Alba. [address] [place] [address] [address], [place], [place], [address], [place]. tel:[phone] Referring Provider: Anjali Caicedo, [address] [place] [address] [address], [place], [address]. tel:[phone] OFFICE/OUTPATI ENT VISIT, [facility] [employer] [facility], [address] [place] [address] [address], [place], [place], [address], [place] tel:[phone] [facility] No Information Sascha Alba. [address] [facility] [address], [place], [place], [address], [place]. tel:[phone] Referring Provider: Ajnali Caicedo, [address] [place] [address] [address], [place], [address]. tel:[phone] OFFICE/OUTPATI ENT VISIT, [facility] [employer] [facility], [address] [place] [address] [address], [place], [place], [address], [place] tel:[phone] [facility] No Information Sascha Alba. [facility] [address] [facility] [address], [place], [place], [address], [place]. tel:[phone] Referring Provider: Anjali Caicedo, [address] [place] [address] [address], [place], [address]. tel:[phone] OFFICE/OUTPATI ENT VISIT, [facility] [employer] [facility], [address] [place] [address] [address], [place], [place], [address], [place] tel:[phone] [facility] No Information Sascha Alba. [address] [place] [address] [address], [place], [place], [address], [place]. tel:[phone] Referring Provider: Anjali Caiceod, [address] [place] [address] [address], [place], [address]. tel:[phone], [address] [place] [address] [address], [place], [place], [address], [place] tel:[phone] [facility] No Information Sascha Alba. [address] [place] [address] [address], [place], [address], [place]. tel:[phone] Referring Provider: Anjali Caicedo, [address] [place] [address] [address], [place], [address]. tel:[phone], [address] [place] [address] [address], [place], [place], [address], [place] tel:[phone] [facility] No Information Sascha Alba. [address] [facility] [address], [place], [place], [address], [place]. tel:[phone] Referring Provider: Anjali Caicedo, [address] [facility] [address], [place], [address]. tel:[phone], [address] [place] [address] [address], [place], [place], [address], [place] tel:[phone] [facility] IP No Information Endy Cordero. [address] [place] [address] [address], [place], [address], [place]. tel:[phone] Referring Provider: Gil Bentley, [address] [place] [address] [address], [place], [address]. tel:[phone], [address] [place] [address] [address], [place], [place], [address], [place] tel:[phone] [facility] IP No Information Sascha Alba. [address] [place] [address] [address], [place], [place], [address], [place]. tel:[phone] Referring Provider: Anjali Caicedo, [address] [place] [address] [address], [place], [address]. tel:[phone] OFFICE/OUTPATI ENT VISIT, [facility], [address] [place] [address] [address], [place], [place], [address], [place] tel:[phone] [facility] No Information Endy Cordero. [address] [place] [address] [address], [place], [place], [address], [place]. tel:[phone] Referring Provider: Gil Bentley, [address] [place] [address] [address], [place], [address]. tel:[phone] OFFICE/OUTPATI ENT VISIT, [facility] [employer] [facility], [address] [place] [address] [address], [place], [place], [address], [place] tel:[phone] [facility] No Information Endy Cordero. [address] [facility] [address], [place], [place], [address], [place]. tel:[phone] Referring Provider: Gil Bentley, [address] [facility] [address], [place], [address]. tel:[phone] [facility], [address] [place] [address] [address], [place], [place], [address], tel:[phone] [facility] No Information Endy Cordero. [address] [place] [address] [address], [place], [place], [address], [place]. tel:[phone] Referring Provider: Gil Bentley, [address] [place] [address] [address], [place], [address]. tel:[phone] Family History Family Member Type Diagnosis Age At Onset No Information Payers Payer name Insurance type Covered republican ID James sanmarianne(s) [employer] [place] [employer] CI [id number] Social History Type Description Quantity Date Captured [...]
--- OUTSIDE RECORDS SUMMARY | 2024-09-22 06:14 | XMS_ITS | Continuity of Care Document ---
Author Organization [facility] Address [address] [place] [address] Phone Care Team Providers Care Comb Setter Name Role Phone Lauri Jimenez DMD Unavailable [...] Prophylaxis Adult Nutrit Couns For Control Of [place] Dis Jul Oral Hygiene Instruction Periodic Oral Eval Estab Patient 2024 Oral Hygiene Instruction Resin Composite 1s; Posterior 4 Resin Composite 1s; Posterior 4 Prophylaxis Adult Nutrit Couns For Control Of [place] Dis Oct Oral Hygiene Instruction Prophylaxis Adult Nutrit Couns For Control Of [place] Dis Jan Oral Hygiene Instruction Oral Hygiene Instruction Resin Composite 2s; Posterior Intraoral-complete Series (bw) Oral Hygiene Instruction Comp Oral Eval New/estab Patient 2022 Advance Directives Directive Yes / No Effective Date File Name No Information Encounters Encounter Description Practice Location Reason(s) For Visit Diagnoses Date Provider Providers Copied on Encounter [facility], [address] [place] [address], [id number], [place] tel:[phone] [facility] (chief complaint) Body mass index [BMI] 32.0-32.9, adultEncounter for screening for dental disorders Tony Proctoral. [address] [place] [address], [id number] , [place]. tel:[phone] [facility], [address] [place] [address], [id number], [place] tel:[phone] [facility] pa (chief complaint) Encounter for screening for dental disordersBody mass index [BMI] 32.0-32.9, adult Tony DMD Lauri. [address] [place], [place], [id number] , [place]. tel:[phone] [facility], [address] [place] [address], [id number], [place] tel:[phone] [facility] filling (chief complaint) Encounter for screening for dental disorders Tony DMD Lauri. [address] [place], [place], [id number] , [place]. tel:[phone] [facility], [address] [place] [address], [id number], [place] tel:[phone] [facility] (chief complaint) Encounter for screening for dental disorders Tony DMD Lauri. [address] [place], [place], [id number] , [place]. tel:[phone] [facility], [address] [place] [address], [id number], [place] tel:[phone] [facility] (chief complaint) Encounter for screening for dental disorders Tony Carreon. [address] [place], [place], [id number] , [place]. tel:[phone] [facility], [address] [place] [address], [id number], [place] tel:[phone] [facility] DAVIDA (chief complaint) Encounter for screening for dental disorders Tony Carreon. [address] [place], [place], [id number] , [place]. tel:[phone] [facility], [address] [place] [address], [id number], tel:[phone] [facility] Dental Clinic DN (chief complaint) Encounter for screening for dental disorders Tony Carreon. [address] [place], [place], [id number] , [place]. [phone] Family History Family Member Type Diagnosis Age At Onset No Information Payers Payer name Insurance type Covered republican ID Authoriza tion(s) No Information Social History [...] C screening. Due o n due Goal Depression screening. Due on due Goal PRAPARE ASSESSMENT. Due on M due Goal Dietary manageme nt education, guidance, and counseling completed Goal Unhealthy drug use screening . Due on due Goal Depression screening. Due on due Goal PRAPARE ASSESSMENT. Due on A due Goal Tdap Vaccine. Due on 2024 due Goal RLP. Due on due Goal Influenza vaccine. Due on Ap due Goal Hepatitis C screening. Due o [...] C screening. Due o n due Goal Influenza vaccine. Due on No due Goal Unhealthy drug use screening . Due on due Goal Depression screening. Due on due Goal RLP. Due on due Goal Depression screening. Due [...] PRAPARE ASSESSMENT. Due on O due Goal RLP. Due on due Goal Influenza vaccine. Due on Se p due Goal PRAPARE ASSESSMENT. Due on S due Goal Tdap. Due on due Goal Depression screening. Due on due Goal PAP. Due on due Goal Tdap Vaccine. Due on 2022 due Goal RLP. Due on due Goal [...]
--- OUTSIDE RECORDS SUMMARY | 2024-12-22 13:40 | XMS_ITS | Encounter Summary ---
Author Organization [facility] Address [address] [facility] [place] [address] Care Team Providers Care Button Maker And Installer Name Role Phone Xena Mccallum MD Primary Care Provider [phone] Isabel Li APPLIED TECHNOLOGIST Unavailable Reason for Visit * Reason Comments Headache Encounter Details Date Type Department Care Team (Late st Contact Info) Description 12/22/2024 1:40 PM EDT Office Visit [facility] Family Medicine [address] [place] [phone] Xena Mccallum MD [address] [place] [address] Intractable chronic migraine without aura and with status migrainosus (Primary Dx); Iron deficiency anemia secondary to inadequate dietary iron intake; Depression, unspecified depression type Social History Tobacco Use Types Packs/Day Years [...] Sign Reading Time Taken Comments Blood Pressure 116/74 12/22/2024 1:46 PM EDT Pulse 71 12/22/2024 1:46 PM EDT Temperature - - Respiratory Rate 18 12/22/2024 1:46 PM EDT Oxygen Saturation 100% 12/22/2024 1:46 PM EDT Inhaled Oxygen Concentration - - Weight 67.6 kg (149 lb) 12/22/2024 1:46 PM EDT Height 154.9 cm (5' 1 ) 12/22/2024 1:46 PM EDT Body Mass Index 28.15 12/22/2024 1:46 PM EDT documented in this encounter Progress Notes * Xena Mccallum MD - 12/22/2024 1:40 PM EDTAssociated Problem(s): Iron deficiency anemia secondary to inadequate dietary iron intake Orders: CBC and differential; Future TSH W/REFLEX TO FT4; Future * Xena Mccallum MD - 12/22/2024 1:40 PM EDTAssociated Problem(s): Depression Orders: TSH W/REFLEX TO FT4; Future * Xena Mccallum MD - 12/22/2024 1:40 PM EDT Images from the original note were not included. Subjective ?Quick Links Last Note in Specialty Snapshot Edit RFV/CC Edit Screenings Current Meds Patient ID: Tan Contreras is a 29 y.o. female who presents for Headache. HPI History of Present Illness The patient is a female who presents for migraines, depression, anemia, and breast pain. She has been experiencing migraines for the past 1.5 years. Initially, Topamax was prescribed and found effective. However, due to her in 02/2024, Topamax was discontinued. During , a combination of magnesium and Phenergan managed her symptoms. Post-delivery, Topamax was resumed but found less effective, leading to its discontinuation a week ago. Labetalol was taken during her hospital stay and for a week after returning home, but it caused significant drops in blood pressure, leading to its discontinuation. No other medications have been tried for her headaches due to previous Medicaid limitations. Her headaches are most severe in the morning, prompting coffee consumption. She maintains good hydration by drinking plenty of water. Currently, no medication is taken for headaches as Tylenol has proven ineffective. Excedrin has not been tried. Citalopram is taken in the morning and BuSpar at night, both prescribed during and found beneficial. She believes she has found a good balance for anxiety and depression issues but now feels she is dealing with depression. Extensive walking is possible, and weight has dropped from 154 pounds pre- to below her normal weight. Weight loss surgery was undergone, and she struggles with eating large amounts at once, often feeling constantly hungry. Higher protein foods are consumed to increase intake. A slow-release iron supplement is currently taken, and constipation is managed with a probiotic. Additionally, a probiotic is taken to aid hormonal balance and sunflower lecithin for breastpain. Diet: Grazing all day long, higher protein foods, healthy carbs Coffee/Tea/Caffeine-containing Drinks: One coffee per day PAST SURGICAL HISTORY: Weight loss surgery ?Quick Review Review Full History Edit History Meds - busPIRone (Buspar) 10 MG tablet Calcium Carbonate (CALCIUM 500 PO) citalopram (CeleXA) 20 MG tablet Ferrous Sulfate (iron) 325 (65 Fe) MG tablet labetalol (Normodyne) 200 MG tablet MV-Min-Fe Fum-FA-DHA ( 1 PO) promethazine (Phenergan) 12.5 MG tablet topiramate (Topamax) 25 MG tablet --- PMH - Gallstones H/O left wrist surgery History of ankle surgery Kidney stones Metal plate in upper extremity Nephrolithiasis Pneumonia Objective ?Quick Links Add Vitals Timeline (Adult) Labs Imaging Results Review Trend Vitals ?? Avoid pulling in long tables of results. Comment on relevant results to support your medical decision making. LMP 02/13/2024 Visit Vitals BP 116/74 (BP Location: Right arm, Patient Position: Sitting, BP Cuff Size: Adult) Pulse 71 Resp 18 Ht 5' 1 Wt 149 lb LMP 02/13/2024 SpO2 100% BMI 28.15 kg/m?? OB Status Recent Smoking Status Never BSA 1.71 m?? Physical Exam Constitutional: Appearance: Normal appearance. She [...] Content: Thought content normal. Judgment: Judgment normal. Physical Exam General: Patient appears fatigued but in no acute distress. Neurological: Alert and oriented, no focal deficits noted. ?Quick Links Full Problem List GI Assessment & Plan Intractable chronic migraine without aura and with status migrainosus Orders: propranolol LA (Inderal LA) 80 MG 24 hr capsule; Take 1 capsule (80 mg) by mouth Daily Do not crush, chew, or split. Iron deficiency anemia secondary to inadequate dietary iron intake Orders: CBC and differential; Future TSH W/REFLEX TO FT4; Future Depression, unspecified depression type Orders: TSH W/REFLEX TO FT4; Future Assessment & Plan 1. Migraines: - Migraines have been persistent and severe, especially in the mornings. - Inderal (propranolol) will be initiated as a safer option during . - Excedrin will be used as needed for headache relief. - If symptoms worsen, she should return sooner. 2. depression: - She continues to experience significant emotional distress and physical pain . - She is currently on citalopram and BuSpar, which have been helpful. - She is advised to continue these medications and monitor her symptoms closely. 3. Anemia: - Her blood count has dropped significantly, indicating anemia. - A recheck of her blood count will be conducted today. Her thyroid function will also be assessed. 4. Breast pain: - She is taking ibuprofen for breast pain, which she initially thought was due to a clogged duct. - She is using sunflower lecithin and a probiotic to help with hormonal balance and prevent clogs. Follow-up: A follow-up visit is scheduled in 2 to 3 weeks. documented in this encounter Plan of Treatment Upcoming Encounters Date Type Department Care Team (Late st Contact Info) Description 01/04/2025 10:50 AM EDT Office Visit [facility] [address] [place] [place] [phone] Ingrid Villalta NP [address] [place] [address] 01/04/2025 2:00 PM EDT Office Visit [facility] Medicine [address] [place] [address] Xena Mccallum MD [address] [place], [place] [id number] documented as of this encounter Procedures Procedure Name Priority Date/Time Associated Diagnosis Comments TSH W/REFLEX TO FT4 Routine 12/22/2024 2 :03 PM EDT Iron deficiency anemia secondary to inadequate dietary iron intake Depression, unspecified depression type CBC (INCLUDES DIFF/PLT) Routine 12/22/2024 2:03 PM EDT Iron deficiency anemia secondary to inadequate dietary iron intake documented in this encounter Results * TSH W/REFLEX TO FT4 (12/22/2024 2:03 PM EDT) TSH W/REFLEX TO FT4 1.32 mIU/L [facility] Comment: Reference Range > or = 20 Years 0.40-4.50 Ranges First trimester 0.26-2.66 Second trimester 0.55-2.73 Third trimester 0.43-2.91 12/22/2024 2:03 PM EDT 12/22/2024 2:04 PM EDT Narrative Resulting Agency Comment Performing Organization Information Site ID: QPT Name: [facility] [facility] Address: [address] [place] [address], [address] [place] [phone] Director: Brenden Conde MD Xena Mccallum MD LAB BLOOD ORDERABLES Final Resul t [facility] * (ABNORMAL) CBC and differential (12/22/2024 2:03 PM EDT) WHITE BLOOD CELL COUNT 5.3 3.8 - 10.8 Thousand/u L [facility] RED BLOOD CELL COUNT 4.65 3.80 - 5.10 Million/uL [facility] HEMOGLOBIN 10.5(L) 11.7 - 15.5 g/dL [facility] HEMATOCRIT 34.4(L) 35.0 - 45.0 % [facility] MCV 74.0(L) 80.0 - 100.0 fL [facility] MCH 22.6(L) 27.0 - 33.0 pg [facility] MCHC 30.5(L) 32.0 - 36.0 g/dL [facility] Comment: For adults, a slight decrease in the calculated MCHC value (in the range of 30 to 32 g/dL) is most likely not clinically significant; however, it should be interpreted with caution in correlation with other red cell parameters and the patient's clinical condition. RDW 21.2(H) 11.0 - 15.0 % [facility] PLATELET COUNT 299 140 - 400 Thousand/u L [facility] MPV 10.3 7.5 - 12.5 fL [facility] ABSOLUTE NEUTROPHILS 1,945 1,500 - 7,800 cells/uL [facility] ABSOLUTE LYMPHOCYTES 2,565 850 - 3,900 cells/uL [facility] ABSOLUTE MONOCYTES 700 200 - 950 cells/uL [facility] ABSOLUTE EOSINOPHILS 69 15 - 500 cells/uL [facility] ABSOLUTE BASOPHILS 21 0 - 200 cells/uL [facility] NEUTROPHILS 36.7 % [facility] LYMPHOCYTES 48.4 % [facility] MONOCYTES 13.2 % [facility] EOSINOPHILS 1.3 % [facility] BASOPHILS 0.4 % [facility] Blood Venous blood specimen / Unknown 12/22/2024 2:03 PM EDT 12/22/2024 2:04 PM EDT Narrative Resulting Agency Comment Performing Organization Information Site ID: QPT Name: [employer] [facility] Address: [address] [place] [address], [address] [place] [phone] Director: Brenden Conde MD Xena Mccallum MD LAB BLOOD ORDERABLES Final Resul t [facility] documented in this encounter Visit Diagnoses Diagnosis Intractable chronic migraine without aura and with status migrainosus- Primary Iron deficiency anemia secondary to inadequate dietary iron intake Depression, unspecified depression type documented in this encounter Care Teams Button Maker And Installer Relationship Specialty Start Date End Date Xena Mccallum MD [address] [place] [address] PCP - General Family Medicine 09/04/22 Isabel Li NP PCP - [facility] 10/28/23 documented as of this encounter
[2025-01-02 15:39] VITALS: BP 112/79; PULSE 78; TEMP 36.7; O2SAT 99; BMI 28.3
--- OUTSIDE RECORDS SUMMARY | 2025-01-02 15:41 | XMS_ITS | Encounter Summary ---
Author Organization [facility] Address [address] [facility] [place] [address] Care Team Providers Care Proof Inspector Name Role Phone Xena Mccallum MD Primary Care Provider [phone] Isabel Li NP Unavailable Encounter Details Date Type Department Care Team (Latest Contact Info) Description 12/22/2024 Travel Social History Tobacco Use Types Packs/Day Years [...] AM EDT Office Visit NICOLETTE AVERY [address] [place] [address] Ingrid Villalta NP [address] [place] [address] 01/04/2025 2:00 PM EDT Office Visit [facility] [address] [place] [place] [phone] Xena Mccallum MD [address] [facility] [place] [address] documented as of this encounter Visit Diagnoses Not on filedocumented in this encounter Care Teams Proof Inspector Relationship Specialty Start Date End Date Xena Mccallum MD [address] [facility] [place] [address] PCP - General Family Medicine 09/04/22 Isabel Li NP PCP - [facility] 10/28/23 documented as of this encounter
--- OUTSIDE RECORDS SUMMARY | 2025-01-02 15:41 | XMS_ITS | Encounter Summary ---
Author Organization [facility] Address [address] [facility] [place] [address] Care Team Providers Care Director Of Professional Services Name Role Phone Xena Mccallum MD Primary Care Provider [phone] Xena Mccallum MD Unavailable Isabel Li NP Unavailable Encounter Details Date Type Department Care Team (Late Contact Info) Description 07/22/2023 Abstract [facility] Medicine [address] [place] [phone] Isabel Li, TANK PROCESSOR Social History Tobacco Use Types Packs/Day Years [...] AM EDT Office Visit NICOLETTE AVERY [address] [facility] [place] [address] Ingrid Villalta, JENNY [address] [facility] [place] [address] 01/04/2025 2:00 PM EDT Office Visit [facility] [address] [facility] [place] [phone] Xena Mccallum MD [address] [facility] [place], [place] [phone] documented as of this encounter Visit Diagnoses Not on filedocumented in this encounter Care Teams Director Of Professional Services Relationship Specialty Start Date End Date Xena Mccallum MD [address] [facility] [place], [place] [phone] PCP - General Family Medicine 09/04/22 Xena Mccallum MD [address] [facility] [place], [place] [phone] PCP - [facility] 07/29/23 Isabel Li NP PCP - [facility] 10/28/23 documented as of this encounter
--- OUTSIDE RECORDS SUMMARY | 2025-01-02 15:41 | XMS_ITS | Encounter Summary ---
Author Organization [facility] Address [address] [facility] [place] [address] Care Team Providers Care Type Rolling Machine Operator Name Role Phone Xena Mccallum MD Primary Care Provider [phone] Isabel Li MULTISENSOR INTELLIGENCE OFFICER Unavailable Encounter Details Date Type Department Care Team (Late st Contact Info) Description 11/18/2024 Abstract [facility]E [place] OBJOVANNIN [address] [facility] [place] [address] Douglas Lewis DO [address] [facility] [address] [place] [id number] Social History Tobacco Use Types Packs/Day Years [...] AM EDT Office Visit NICOLETTE AVERY [address] [facility] [place] [address] Ingrid Villalta NP [address] [facility] [place] [address] 01/04/2025 2:00 PM EDT Office Visit [facility] [address] [facility] [place] [phone] Xena Mccallum MD [address] [facility] [address] [place], [place] [phone] documented as of this encounter Visit Diagnoses Not on filedocumented in this encounter Care Teams Type Rolling Machine Operator Relationship Specialty Start Date End Date Xena Mccallum MD [facility] [facility] [address] [place], [place] [phone] PCP - General Family Medicine 09/04/22 Isabel Li NP PCP - [facility] 10/28/23 documented as of this encounter
--- OUTSIDE RECORDS SUMMARY | 2025-01-02 15:41 | XMS_ITS | Encounter Summary ---
Author Organization [facility] Address [address] [facility] [address] Care Team Providers Care Neurourologist Name Role Phone Narinder Hernandez MD Primary Care Provider [phone] Narinder Hernandez MD Unavailable Isabel Li STRAIGHTENER HAND Unavailable Encounter Details Date Type Department Care [...] Department Care Team (Late Contact Info) Description 01/04/2025 10:50 AM EDT [place] [address] Ingrid Villalta NP [address] [place] [address] 01/04/2025 2:00 PM EDT Office Visit [facility] [address] [place] [address] Narinder Hernandez MD [address] [place], [place] [phone] documented as of this encounter Procedures Procedure Name Priority Date/Time Associated Diagnosis Comments US PELVIS W/ TRANSVAGINAL 08/13/2023 2:53 PM EDT documented in this encounter Results * US PELVIS W/ TRANSVAGINAL (08/13/2023 2:53 PM EDT) Anatomical Region Laterality Modality Other 08/13/2023 2:53 PM EDT Narrative 08/13/2023 2:56 PM EDT [address] [address] Ultrasound Report Signed Patient: Tan Weiner MR#: [id number] : 1995 Acct:[id number] Age/Sex: 28 / F ADM Date: 08/13/23 Loc: [facility] Attending Dr: Clinton Lewis D.O. Ordering Physician: Clinton Lewis D.O. Date of Service: 08/13/23 Procedure(s): US pelvis w/ transvaginal Accession Number(s): [id number] cc: NARINDER HERNANDEZ Corey D.O. The [address] [address] Patient Name: TAN WEINER MRN: [id number] date: 1995 Sex: F Assigned Patient [facility]: [facility] Current Patient Location: [facility] Accession/Order Number: [id number] Exam Date: 08/13/2023 11:33 Report Date: 08/13/2023 [...] Signed By: 08/13/23 1456 DD/ 1453 TD/TT: Milk Drier: Procedure Note Radiology, Radiologist, MD - 08/13/2023 [place] [address] Ultrasound Report Signed Patient: Tan Weiner RMR#: [id number] : 1995Acct:[id number] Age/Sex: 28 / FADM Date: 08/13/23 Loc: [facility] Attending Dr: Clinton Lewis D.O. Ordering Physician: Clinton Lewis D.O. Date of Service: 08/13/23 Procedure(s): US pelvis w/ transvaginal Accession Number(s): [id number] cc: NARINDER HERNANDEZ Corey D.O. The [address] [address] Patient Name: TAN WEINER MRN: [id number] date: 1995 Sex: F Assigned Patient Location: [facility] Current Patient Location: [facility] Accession/Order Number: [id number] Exam Date: 08/13/2023 11:33 Report Date: 08/13/2023 [...] M.D. Signed By:08/13/23 1456 DD/ 1453 TD/TT: Milk Drier: us Generic External Data Provider [facility] Final Result documented in this encounter Visit Diagnoses Not on filedocumented in this encounter Care Teams Neurourologist Relationship Specialty Start Date End Date Narinder Hernandez MD [address] [place] [address] PCP - General Family Medicine 09/04/22 Narinder Hernandez MD [address] [place] [address] PCP - [facility] 07/29/23 Isabel Li NP PCP - [facility] 10/28/23 documented as of this encounter
--- OUTSIDE RECORDS SUMMARY | 2025-01-02 15:41 | XMS_ITS | Clinical Summary ---
Author Organization [facility] Address [address] [facility] [place] [address] Care Team Providers Care Event Mgr Name Role Phone Xena Mccallum MD Primary Care Provider [phone] Isabel Li MANAGER OF RECRUITING Unavailable Allergies Active Allergy Reactions Criticality Noted Date Comments Clindamycin Swelling 06/18/2023 Other Reaction(s): Tongue swelling Lamotrigine 06/18/2023 Other Reaction(s): worsened depression Morphine Hives 06/18/2023 Penicillins Rash,Unknown Low 04/26/2016 Medications MV-Min-Fe Fum-FA-DHA ( 1 PO) Take 1 [...] for nausea. 30 tablet 2 5 Active Additional Information Patient not taking.Reported on 12/22/2024 citalopram (CeleXA) 20 MG tabletIndicatio ns:Mood changes Take 1 tablet (20 mg) by mouth Daily 30 tablet 11 5 026 Active busPIRone (Buspar) 10 MG tabletIndicatio ns:Anxiety, generalized TAKE 1 TABLET BY MOUTH IF NEEDED (1/2 TABLET NEEDED AT BEDTIME) 135 tablet 1 5 Active propranolol LA (Inderal LA) 80 MG 24 hr capsuleIndicati ons:Intractable chronic migraine without aura and with status migrainosus Take 1 capsule (80 mg) by mouth Daily Do not crush, chew, or split. 30 capsule 11 5 026 Active labetalol (Normodyne) 200 MG tablet Take 1 tablet by mouth in the morning and 1 tablet before bedtime. 5 025 Discontin ued(Thera py completed ) topiramate (Topamax) 25 MG tabletIndicatio ns:Postop check,Migraine without aura and without status migrainosus, not intractable Take 1 tablet (25 mg) by mouth in the morning and 1 tablet (25 mg) before bedtime. 180 tablet 3 5 025 Discontin ued(Thera py completed ) Active Problems Problem Noted Date Diagnosed Date 22 weeks gestation of ([facility]) 2024 Second trimester ([facility]) 07/16/2024 Depression 06/18/2023 Assessment & Plan (12/22/2024 2:57 PM EDT): Orders: TSH W/REFLEX TO FT4; Future Anemia 06/18/2023 Anxiety 06/18/2023 Essential thrombocythemia 06/18/2023 Gastroesophageal reflux disease 06/18/2023 Insomnia 06/18/2023 Gastric bypass status for obesity 08/10/2021 Iron deficiency anemia secon efren to inadequate dietary iron intake 08/10/2021 Assessment & Plan (12/22/2024 2:57 PM EDT): Orders: CBC and differential; Future TSH W/REFLEX TO FT4; Future Recurrent nephrolithiasis 09/05/2016 Encounters Date Type Department Care Team Description 12/23/2024 Results Follow-Up [facility] [address] [place] [address] Deidre Cazares NP CBC and differential, TSH W/REFLEX TO FT4 12/22/2024 1:40 PM EDT Office Visit [facility] [address] [facility] [place] [address] Xena Mccallum MD Intractable chronic migraine without aura and with status migrainosus (Primary Dx); Iron deficiency anemia secondary to inadequate dietary iron intake; Depression, unspecified depression type 12/22/[address] [facility] [address] [place] [phone] Xena Mccallum MD 12/22/2024 Travel 12/07/2024 Abstract [facility] [address] [place] [address] Clinton Lewis, 11/19/2024 9:40 AM EDT Office Visit [facility] [address] [place] [address] Clinton Lewis, Encounter for visit ([facility]); Postop check; S/P section; Migraine without aura and without status migrainosus, not intractable 11/19/2024 Bamboo flowsheet [facility] [address] [place] [address] Clinton Lewis, 11/18/2024 Abstract [facility] [address] [place] [address] Clinton Lewis, DO 11/17/2024 Patient Outreach [facility] [address] [place] [address] Maddie Townsend LPN 11/14/2024 Refill [facility] [address] [place] [address] Ingrid Villalta, EJNNY Anxiety, generalized 11/13/2024 Clinisync Result Encounter NOMS External Department Unsolicited Clinton Lewis, DO 11/12/2024 Abstract [facility] [address] [facility] [place] [address] Clinton Lewis, DO 11/12/2024 Abstract [facility] [address] [place] [address] Clinton Lewis, DO 11/12/2024 Abstract [facility] [address] [place] [phone] Clinton Lewis, DO 11/12/2024 Clinisync Result Encounter NOMS External Department Unsolicited Clinton Lewis, DO 11/11/2024 Clinisync Result Encounter NOMS External Department Unsolicited Provider, Generic External Data 11/04/2024 10:50 AM EDT Routine [facility] [address] [place] [phone] Clinton Lewis, 37 weeks gestation of ([facility]); Third trimester ([facility]); Anxiety, generalized ; History of gastric bypass 11/04/2024 Clinisync Result Encounter NOMS External Department Unsolicited Provider, Generic External Data 10/28/2024 9:00 AM EDT Routine [facility] [address] [place] [phone] Maddie Chan PA Third trimester ([facility]); 36 weeks gestation of ([facility]) 10/28/2024 Clinisync Result Encounter NOMS External Department Unsolicited Clinton Lewis, DO 10/28/2024 Bamboo flowsheet [facility] [address] [place] [address] Maddie Chan PA 10/21/2024 1:30 PM EDT Routine [facility] [address] [place] [address] Clinton Lewis, Nausea (Primary Dx); Third trimester ([facility]); 35 weeks gestation of ([facility]); Anxiety, generalized 10/21/2024 Clinisync Result Encounter NOMS External Department Unsolicited Provider, Generic External Data 10/21/2024 Bamboo flowsheet [facility] [address] [place] [address] Clinton Lewis DO 10/20/2024 Refill [facility] [address] [place] [phone] Clinton Lewis DO Nausea; Mood changes 10/20/2024 Refill [facility] [address] [place] [phone] Xena Mccallum MD Anxiety 10/14/2024 Clinisync Result Encounter NOMS External Department Unsolicited Provider, Generic External Data 10/07/2024 1:50 PM EDT Routine [facility] [address] [place] [phone] Clinton Lewis DO Third trimester ([facility]); 33 weeks gestation of ([facility]) 10/07/2024 Clinisync Result Encounter NOMS External [...] Mass Index 28.15 12/22/2024 1:46 PM EDT Plan of Treatment Upcoming Encounters Date Type Department Care Team (Late st Contact Info) Description 01/04/2025 10:50 AM EDT Office Visit [facility] [address] [place] [address] Ingrid Villalta, JENNY [address] [facility] [place] [address] 01/04/2025 2:00 PM EDT [facility] [address] [place] [address] Xena Mccallum MD [address] [place], [place] [phone] Health Maintenance Due Date Last Done Comments Influenza Vaccine (#1) 2024 05/03/2020, 2017, 02/21/2016 Procedures Procedure Name Priority Date/Time Associated Diagnosis Comments TSH W/REFLEX TO FT4 Routine 12/22/2024 2 :03 PM EDT Iron deficiency anemia secondary to inadequate dietary iron intake Depression, unspecified depression type CBC (INCLUDES DIFF/PLT) Routine 12/22/2024 2:03 PM EDT Iron deficiency anemia secondary to inadequate dietary iron intake ALL CBC WITH AUTO DIFF Routine 6:16 AM EDT ALL CBC WITH AUTO DIFF Routine 6:00 AM EDT TB[facility] DRUG SCREEN RAPID (URINE) Routine 11/12/2024 5:50 AM EDT US OB BPP W NON-STRESS 11/11/2024 10:08 AM EDT POCT URINALYSIS DIPSTICK Routine 11/04/2024 11:09 AM EDT 37 weeks gestation of ([facility]) Third trimester ([facility]) US OB BPP W NON-STRESS 11/04/2024 9:44 AM EDT US OB BPP W NON-STRESS 10/28/2024 2:46 PM EDT US OB BPP W NON-STRESS 10/21/2024 4:12 PM EDT POCT URINALYSIS DIPSTICK Routine 10/21/2024 2:12 PM EDT Third trimester ([facility]) CULTURE, GROUP B STREP WITH SUSCEPTIBLITY Routine 10/21/2024 1:52 PM EDT Third trimester ([facility]) STREP GP B CULTURE+RFLX Routine 10/21/2024 1:51 PM EDT US OB BPP W NON-STRESS 10/14/2024 9:51 AM EDT US OB BPP W NON-STRESS 10/07/2024 9:21 AM EDT from Last 3 Months Results * TSH W/REFLEX TO FT4 (12/22/2024 2:03 PM EDT) Pathologist [facility] TSH W/REFLEX TO FT4 1.32 mIU/L [facility] Comment: Reference Range > or = 20 Years 0.40-4.50 Ranges First trimester 0.26-2.66 Second trimester 0.55-2.73 Third trimester 0.43-2.91 12/22/2024 2:03 PM EDT 12/22/2024 2:04 PM EDT Narrative Resulting Agency Comment Performing Organization Information Site ID: QPT Name: [facility] Address: [address] [place] [address], [address] [place] [phone] Director: Brenden Conde MD Xena Mccallum MD LAB BLOOD ORDERABLES Final Resul t [facility] * (ABNORMAL) CBC and differential (12/22/2024 2:03 PM EDT) Pathologist [facility] WHITE BLOOD CELL COUNT 5.3 3.8 - [...] Performing Organization Information Site ID: QPT Name: [facility] Address: [facility] [place] , [address] [place] [phone] Director: Brenden Conde MD Xena Mccallum MD LAB BLOOD ORDERABLES Final Resul t [facility] * (ABNORMAL) ALL CBC WITH AUTO DIFF (11/13/2024 6:16 AM EDT) Only the most recent of2 resultswithin the time period is included. [facility] WBC 15.5(H) 4.0 - 11.0 10 3/uL [facility] TBH RBC 3.62(L) 4.20 - 5.40 10 6/uL [facility]H TBH HGB 7.6(L) 12.0 - 16.0 g/dL TBH TBH HCT 25.4(L) 36.0 - 48.0 % [facility]H TBH MCV 70.2(L) 81.0 - 99.0 fL TBH TBH MCH 21.0(L) 26.7 - 34.0 pg TBH TBH MCHC 29.9 29.9 - 35.2 g/dL TBH TBH RDW 15.6(H) 11.0 - 15.0 % TBH TBH PLT 244 150 - 450 10 3/uL TBH TBH MPV 10.4 9.5 - 13.5 fL [facility]H NEUTROPHILS PERCENT AUTO 61.0 43.0 - 75.0 % TBH LYMPHOCYTES PERCENT AUTO 29.8 20.5 - 60.0 % TBH MONOCYTES PERCENT AUTO 8.0 1.7 - 12.0 % TBH TBH EO % 0.1(L) 0.9 - 7.0 % [facility]H BASOPHILS PERCENT AUTO 0.4 0.2 - 2.0 % [facility]H IMMATURE GRANULOCYTES PCT AUTO 0.7(H) 0.0 - 0.5 % [facility]H NEUTROPHILS ABSOLUTE AUTO 9.5(H) 1.4 - 6.5 10 3/uL [facility]H LYMPHOCYTES ABSOLUTE AUTO 4.6(H) 1.2 - 3.8 10 3/uL TBH MONOCYTES ABSOLUTE AUTO 1.2(H) 0.3 - 0.8 10 3/uL TBH TBH EO # 0.0 0.0 - 0.7 10 3/uL TBH BASOPHILS ABSOLUTE AUTO 0.1 0.0 - 0.1 10 3/uL [facility] IMMATURE GRANULOCYTES ABS AUTO 0.11(H) 0.00 - 0.03 10 3/uL [facility] 11/13/2024 6:1 6 AM EDT 11/13/2024 6:28 AM EDT Narrative [facility] - 11/13/2024 6:35 AM EDT Clinton Debbie DO CLINISYNC Final Result Performing Organization Address City/State/[facility] Co de Phone Number [facility] * TB DRUG SCREEN RAPID (URINE) (11/12/2024 5:50 AM EDT) CANNABINOID SCREEN URINE NEGATIVE NEGATIVE TBH PHENCYCLIDINE SCREEN URINE NEGATIVE NEGATIVE TBH COCAINE SCREEN URINE NEGATIVE NEGATIVE TBH METHAMPHETAMINES SCREEN URINE NEGATIVE NEGATIVE TBH OPIATE SCREEN URINE NEGATIVE NEGATIVE TBH AMPHETAMINE SCREEN URINE NEGATIVE NEGATIVE TBH BENZODIAZEPINES SCREEN URINE NEGATIVE NEGATIVE TBH TRICYCLIC ANTIDEPRESSANT URINE NEGATIVE NEGATIVE TBH METHADONE SCREEN URINE NEGATIVE NEGATIVE TBH BARBITURATES SCREEN URINE NEGATIVE NEGATIVE TBH OXYCODONE SCREEN URINE NEGATIVE NEGATIVE TBH BUPRENORPHINE SCREEN URINE NEGATIVE NEGATIVE TBH Comment: DRUG CLASS TEST SYSTEM CUT-OFF CONCENTRATIONS ARE FOLLOWS: AMP (Amphetamine): 500 ng/mL BAR (Barbiturates): 200 ng/mL BZO (Benzodiazepines): 150 ng/mL BUP (Buprenorphine): 10 ng/mL ESTRELLA (Cocaine): 150 ng/mL mAMP (Methamphetamine): 500 ng/mL MTD (Methadone): 200 ng/mL OPI (Opiates): 100 ng/mL OXY (Oxycodone): 100 ng/mL PCP (Phencyclidine): 25 ng/mL THC (Cannabinoids): 50 ng/mL TCA (Trycyclic Antidepressants): 300 ng/mL 11/12/2024 5:50 AM EDT 11/12/2024 7:53 AM EDT Narrative CLINISYNC - 11/12/2024 8:09 AM EDT Clinton Lewis DO CLINVIRA Final Result [facility] * US OB BPP W NON-STRESS (11/11/2024 10:08 AM EDT) Only the most recent of6 resultswithin the time period is included. Anatomical Region Laterality Modality Other 11/11/2024 10:0 8 AM EDT Narrative 11/11/2024 10:[place] [address] Ultrasound Report Signed Patient: TAN MARS MR#: [id number] : 1995 Acct:[id number] Age/Sex: 29 / F ADM Date: 11/11/24 Loc: [facility] 256-[address]: Clinton Lewis D.O. Ordering Physician: Clinton Lewis D.O. Date of Service: 11/11/24 Procedure(s): US OB BPP w non-stress Accession Number(s): [id number] cc: XENA MCCALLUM ; Clinton Lewis D.O. The [address] [address] Patient Name: TAN MARS MRN: [id number] date: 1995 Sex: F Assigned Patient Location: [facility] Current Patient Location: [facility] Accession/Order Number: [id number] Exam Date: 11/11/2024 10:06 Report Date: 11/11/2024 10:08 At the request of: CLINTON LEWIS DO [...] WITH NO BREATHING OBSERVED Impression dictated by: Thlema Morales M.D. 11/11/2024 10:08 AM Dictation Location: [place] [address] Electronically authenticated by: [id number] Y Date: 11/11/2024 10:08 Dictated By: Thelma Morales M.D. Signed By: 11/11/24 1010 DD/ 1008 TD/TT: Grassland Conservationist: Procedure Note Radiology, Radiologist, MD - 11/11/2024 [place] [address] Ultrasound Report Signed Patient: TAN MARS RMR#: [id number] : 1995Acct:[id number] Age/Sex: 29 / FADM Date: 11/11/24 Loc: [facility] 256-[address]: Clinton Lewis D.O. Ordering Physician: Clinton Lewis D.O. Date of Service: 11/11/24 Procedure(s): US OB BPP w non-stress Accession Number(s): [id number] cc: XENA MCCALLUM ; Clinton Lewis D.O. The [address] [address] Patient Name: TAN MARS MRN: [id number] date: 1995 Sex: F Assigned Patient Location: [facility] Current Patient Location: [facility] Accession/Order Number: [id number] Exam Date: 11/11/2024 10:06 Report Date: 11/11/2024 10:08 At the request of: CLINTON LEWIS DO Procedure: US OB BPP w non-stress BIOPHYSICAL PROFILE: CLINICAL INFORMATION: History of gastric bypass Z98.84 COMPARISON: 11/04/2024 There is a single live intrauterine gestation in cephalic presentation.The reported gestational age is 38 weeks 6 days. The heart ratemeasures 147 beats per minute. FINDINGS: TONE: 1 or more episodes of activity extension and flexion of extremity or opening and closing of the hand [Y] 2/2 GROSS BODY MOVEMENTS: 3 or more discrete body or limb movements [Y] 2/2 BREATHING MOVEMENTS: 1 or more episodes of breathing lastingat least 30 seconds [Y] 0/2 PATITO: A single deepest vertical pocket of amniotic fluid greater than 2 cm [Y] 2/2 PATITO: 21.4 cm. This is in upper normal range. Total score: 6/8 US/US OB BPP w non-stress IMPRESSION: FAILED BIOPHYSICAL PROFILE WITH NO BREATHING OBSERVED Impression dictated by: Thelma Morales M.D. 11/11/2024 10:08 AM Dictation Location: [place] [address] Electronically authenticated by: [id number] Y Date: 0:08 Dictated By: Thelma Morales M.D. Signed By:11/11/24 1010 DD/ 1008 TD/TT: Grassland Conservationist: Generic External Data Provider [facility] IMAGING Final Result * (ABNORMAL) POCT urinalysis dipstick manually resulted (11/04/2024 11:09 AM EDT) Only the most recent of2 resultswithin the time period is included. Color, UA Yellow Clarity, UA Clear Glucose, UA Negative Negative - 2000(110) ++++ mg/dL Bilirubin, UA Negative Negative - 4(70) +++ mg/dL Ketones, UA Negative Negative - 160(16) ++++ mg/dL Spec Grav, UA 1.025 1 - 1.03 Blood, UA Negative Negative - 50 Liam/mcL pH, UA 6.0 5 - 9 Protein, UA Trace Negative - 2000(20) ++++ mg/dL Urobilinogen, UA 1.0 0.2 - 12 mg/dL Leukocytes, UA Negative Negative - 500+++ Mele/mcL Nitrite, UA Negative Negative - Positive Urine 11/04/2024 11:0 9 AM EDT us Clinton Debbie DO POINT OF CARE TEST ENTER/EDIT OR DERABLES Final Result * CULTURE, GROUP B STREP WITH SUSCEPTIBLITY (10/21/2024 1:52 PM EDT) Swab 10/21/2024 1:52 PM EDT us Clinton Debbie DO LAB BLOOD ORDERABLES Final Resul t EXTERNAL LAB * STREP GP B CULTURE+RFLX (10/21/2024 1:51 PM EDT) Pathologist [facility] STREP GP B CULTURE+RFLX Strep Gp B Culture+Rflx TBH STREP GP B CULTURE+RFLX Negative TBH STREP GP B CULTURE+RFLX Centers for Disease Control and Prevention (CDC) and TBH STREP GP B CULTURE+RFLX [place] [employer] TBH STREP [...] TBH STREP GP B CULTURE+RFLX Performed at: [facility] TBH STREP GP B CULTURE+RFLX [address] [place], [place] [id number] TBH STREP GP B CULTURE+RFLX Transport Coordinator: Braulio Armstrong PhD, Phone: [phone] [facility] 10/21/2024 1:51 PM EDT 10/21/2024 9:04 PM EDT Narrative CLINISYNC - 10/26/2024 12:13 PM EDT us Generic External Data Provider LAB BLOOD ORDERAB LES Final Result [facility] from Last 3 Months Insurance BCBS Care Teams Event Mgr Relationship Specialty Start Date End Date Xena Mccallum MD [address] [place] [address] PCP - General Family Medicine 09/04/22 Isabel Li NP PCP - [facility] 10/28/23
--- OUTSIDE RECORDS SUMMARY | 2025-01-02 15:41 | XMS_ITS | Encounter Summary ---
Author Organization [facility] Address [address] [facility] [place] [address] Care Team Providers Care Zone Supervisor Firearms Name Role Phone Xena Mccallum MD Primary Care Provider [phone] Isabel Li WOOD LATHE OPERATOR Unavailable Encounter Details Date Type Department Care Team (Late st Contact Info) Description 11/11/2023 Orders Only [facility] [address] [place] [address] Maribell Peraza LPN [address] [place] [id number] Social History Tobacco Use Types Packs/Day Years [...] 01/04/2025 10:50 AM EDT Office Visit NICO[facility]TTE SIM[facility] [address] [facility] [place] [address] Ingrid Villalta NP [address] [facility] [place] [address] 01/04/2025 2:00 PM EDT Office Visit [facility] [address] [facility] [place] [phone] Xena Mccallum MD [address] [facility] [place], [place] [phone] documented as of this encounter Procedures Procedure Name Priority Date/Time Associated Diagnosis Comments PAP SMEAR Routine 11/05/2023 12:00 AM EDT documented in this encounter Results * Pap Smear (11/05/2023 12:00 AM EDT) Swab Cervical swab / Unknown us Debbie Nurse [facility] LAB CYTOLOGY ORDERABLES Final Result EXTERNAL LAB documented in this encounter Visit Diagnoses Not on filedocumented in this encounter Care Teams Zone Supervisor Firearms Relationship Specialty Start Date End Date Xena Mccallum MD [address] [facility] [place], [place] [phone] PCP - General Family Medicine 09/04/22 Isabel Li NP PCP - [facility] 10/28/23 documented as of this encounter
--- OUTSIDE RECORDS SUMMARY | 2025-01-02 15:41 | XMS_ITS | Encounter Summary ---
Author Organization [facility] Address [address] [facility] [place] [address] Care Team Providers Care Sugar Cane Planter Name Role Phone Xena Mccallum MD Primary Care Provider [phone] Isabel Li PROTEIN CHEMIST Unavailable Encounter Details Date Type Department Care Team (Late st Contact Info) Description 11/12/2024 Abstract NICOLETTE [facility] OBJOVANNIN [address] [facility] [place] [address] Douglas Lewis DO [address] [facility] [address] [place] [address] Social History Tobacco Use Types Packs/Day Years [...] Patient Health Questionnaire-2 Score 0 06/18/2023 Comments Yes Sex and Gender Information Value Date Recorded Sex Assigned at Not on file Legal Sex Female 6:33 PM EDT Gender Identity Not on file Sexual Orientation Not on file documented as of this encounter Plan of Treatment Upcoming Encounters Date Type Department Care Team (Late st Contact Info) Description 01/04/2025 10:50 AM EDT Office Visit NICOLETTE AVERY [address] [facility] [place] [address] Ingrid Villalta NP [address] [facility] [place] [address] 01/04/2025 2:00 PM EDT Office Visit [facility] [address] [facility] [place] [phone] Xena Mccallum MD [address] [facility] [address] [place], [place] [phone] documented as of this encounter Visit Diagnoses Not on filedocumented in this encounter Care Teams Sugar Cane Planter Relationship Specialty Start Date End Date Xena Mccallum MD [facility] [facility] [address] [place], [place] [phone] PCP - General Family Medicine 09/04/22 Isabel Li NP PCP - [facility] 10/28/23 documented as of this encounter
--- OUTSIDE RECORDS SUMMARY | 2025-01-02 15:41 | XMS_ITS | Encounter Summary ---
Author Organization [facility] Address [address] [facility] [place] [address] Care Team Providers Care Doctor Naturopathic Name Role Phone Xena Mccallum MD Primary Care Provider [phone] Isabel Li SOURCING ANALYST Unavailable Encounter Details Date Type Department Care Team (Late st Contact Info) Description 11/12/2024 Abstract NICOLETTE [place] OBJOVANNIN [address] [place] [address] Douglas Lewis DO [address] [facility] [address] [place] [phone] Social History Tobacco Use Types Packs/Day Years [...] AM EDT Office Visit NICOLETTE AVERY [address] [place] [address] Ingrid Villalta NP [address] [facility] [place] [address] 01/04/2025 2:00 PM EDT Office Visit [facility] [address] [place] [address] Xena Mccallum MD [address] [facility] [address] [place], [place] [address] documented as of this encounter Visit Diagnoses Not on filedocumented in this encounter Care Teams Doctor Naturopathic Relationship Specialty Start Date End Date Xena Mccallum MD [facility] [facility] [address] [place], [place] [phone] PCP - General Family Medicine 09/04/22 Isabel Li NP PCP - [facility] 10/28/23 documented as of this encounter
--- OUTSIDE RECORDS SUMMARY | 2025-01-02 15:41 | XMS_ITS | Encounter Summary ---
Author Organization [facility] Address [address] [facility] [place] [address] Care Team Providers Care Social Services Designee Name Role Phone Xena Mccallum MD Primary Care Provider [phone] Xena Mccallum MD Unavailable Isabel Li NP Unavailable Encounter Details Date Type Department Care Team (Late Contact Info) Description 08/10/2023 Abstract [facility] [address] [place] [phone] Isabel Li, CREDIT AND COLLECTION MANAGER Social History Tobacco Use Types Packs/Day Years [...] AM EDT Office Visit NICOLETTE AVERY [address] [place] [address] Ingrid Villalta, JENNY [address] [facility] [place] [address] 01/04/2025 2:00 PM EDT Office Visit [facility] [address] [place] [phone] Xena Mccallum MD [address] [facility] [place], [place] [phone] documented as of this encounter Visit Diagnoses Not on filedocumented in this encounter Care Teams Social Services Designee Relationship Specialty Start Date End Date Xena Mccallum MD [address] [facility] [place], [place] [phone] PCP - General Family Medicine 09/04/22 Xena Mccallum MD [address] [facility] [place], [place] [phone] PCP - [facility] 07/29/23 Isabel Li NP PCP - [facility] 10/28/23 documented as of this encounter
--- OUTSIDE RECORDS SUMMARY | 2025-01-02 15:41 | XMS_ITS | Encounter Summary ---
Author Organization [facility] Address [address] [facility] [place] [address] Care Team Providers Care Java Tech Lead Name Role Phone Narinder Hernandez MD Primary Care Provider [phone] Isabel Li SEARCH ENGINE MARKETING MANAGER Unavailable Encounter Details Date Type Department Care [...] Upcoming Encounters Date Type Department Care Team ([facility] Contact Info) Description 01/04/2025 10:50 AM EDT Office Visit [facility] Steve AVERY [address] [place] [address] [place] [address] Ingrid Villalta, JENNY [address] [place] [address] [place] [address] 01/04/2025 2:00 PM EDT Office Visit [facility] [address] [place] [phone] Narinder Hernandez MD [address] [place], [place] [phone] documented as of this encounter Procedures Procedure Name Priority Date/Time Associated Diagnosis Comments US OB TRANSVAGINAL 04/17/2024 11 :10 AM EST documented in this encounter Results * US OB TRANSVAGINAL (04/17/2024 11:10 AM EST) Anatomical Region Laterality Modality Other 04/17/2024 11:1 0 AM EST Narrative 04/17/2024 2:43 PM EST [address] [address] Ultrasound Report Signed Patient: TAN MARS MR#: [id number] : 1995 Acct:[id number] Age/Sex: 29 / F ADM Date: 04/17/24 Loc: [facility] Attending Dr: Clinton Lewis D.O. Ordering Physician: Clinton Lewis D.O. Date of Service: 04/17/24 Procedure(s): US OB transvaginal Accession Number(s): [id number] cc: NARINDER HERNANDEZ Corey D.O. The [address] [address] Patient Name: TAN MARS MRN: [id number] date: 1995 Sex: F Assigned Patient Location: [facility] Current Patient Location: [facility] Accession/Order Number: [id number] Exam Date: 04/17/2024 09:28 Report Date: 04/17/2024 [...] Signed By: 04/17/24 1443 DD/ 1110 TD/TT: Adult Ministries Director: Procedure Note Radiology, Radiologist, MD - 04/17/2024 [place] [address] Ultrasound Report Signed Patient: TAN MARS RMR#: [id number] : 1995Acct:[id number] Age/Sex: Date: 04/17/24 Loc: [facility] Attending Dr: Clinton Lewis D.O. Ordering Physician: Clinton Lewis D.O. Date of Service: 04/17/24 Procedure(s): US OB transvaginal Accession Number(s): [id number] cc: NARINDER HERNANDEZ ; Clinton Lewis D.O. The [address] [address] Patient Name: TAN MARS MRN: [id number] date: 1995 Sex: F Assigned Patient Location: [facility] Current Patient Location: [facility] Accession/Order Number: [id number] Exam Date: 04/17/2024 09:28 Report Date: 04/17/2024 11:10 At the request of: CLINTON LEIWS Procedure: US OB transvaginal EXAMINATION: US OB [...] M.D. Signed By:04/17/24 1443 DD/ 1110 TD/TT: Adult Ministries Director: us Generic External Data Provider [facility] Final Result documented in this encounter Visit Diagnoses Not on filedocumented in this encounter Care Teams Java Tech Lead Relationship Specialty Start Date End Date Narinder Hernandez MD [address] [place] [address] PCP - General Family Medicine 09/04/22 Isabel Li NP PCP - [facility] 10/28/23 documented as of this encounter
--- OUTSIDE RECORDS SUMMARY | 2025-01-02 15:41 | XMS_ITS | Encounter Summary ---
Author Organization [facility] Address [address] [facility] [place] [address] Care Team Providers Care Sewer Bricklayer Name Role Phone Xena Mccallum MD Primary Care Provider [phone] Isabel Li SEWING INSPECTOR Unavailable Encounter Details Date Type Department Care Team (Late st Contact Info) Description 12/07/2024 Abstract [facility] Wilson OBJOVANNIN [address] [facility] [place] [address] Douglas Lewis DO [address] [facility] [address] [place] [id number] Social History Tobacco Use Types Packs/Day Years [...] AM EDT Office Visit [facility]E AVERY [address] [facility] [place] [address] Ingrid Villalta NP [address] [facility] [place] [address] 01/04/2025 2:00 PM EDT Office Visit [facility] [address] [facility] [place] [phone] Xena Mccallum MD [address] [facility] [place], [place] [phone] documented as of this encounter Visit Diagnoses Not on filedocumented in this encounter Care Teams Sewer Bricklayer Relationship Specialty Start Date End Date Xena Mccallum MD [facility] [facility] [place], [place] [phone] PCP - General Family Medicine 09/04/22 Isabel Li NP PCP - [facility] 10/28/23 documented as of this encounter
--- OUTSIDE RECORDS SUMMARY | 2025-01-02 15:41 | XMS_ITS | Encounter Summary ---
Author Organization [facility] Address [address] [facility] [place] [address] Care Team Providers Care Dry Kiln Burner Name Role Phone Xena Mccallum MD Primary Care Provider [phone] Isabel Li NP Unavailable Encounter Details Date Type Department Care Team (Late st Contact Info) Description 12/23/2024 Results Follow-Up [facility] [address] [place] [address] Deidre Cazares NP [address] [place], [place] [phone] CBC and differential, TSH W/REFLEX TO FT4 Social History Tobacco Use Types Packs/Day Years [...] Office Visit NICOLETTE AVERY [address] [facility] [place] [phone] Ingrid Villalta NP [address] [facility] [place] [address] 01/04/2025 2:00 PM EDT Office Visit [facility] [address] [place] [phone] Xena Mccallum MD [address] [place], [place] [phone] Scheduled Orders Name Type Priority Associated Diagnoses Orde r Schedule CBC and differential Lab Routine Iron deficiency anemia secondary to inadequate dietary iron intake Expected: 03/25/2025 (Approximate), Expires: 12/23/2025 documented as of this encounter Visit Diagnoses Diagnosis Iron deficiency anemia secondary to inadequate dietary iron intake- Primary documented in this encounter Care Teams Dry Kiln Burner Relationship Specialty Start Date End Date Xena Mccallum MD [address] [facility] [place], [place] [phone] PCP - General Family Medicine 09/04/22 Isabel Li NP PCP - [facility] 10/28/23 documented as of this encounter
--- OUTSIDE RECORDS SUMMARY | 2025-01-02 15:41 | XMS_ITS | Encounter Summary ---
Author Organization [facility] Address [address] [place] [facility] [place] [address] Care Team Providers Care Hammer Adjuster Name Role Phone Xena Mccallum MD Primary Care Provider [phone] Isabel Li INTERNAL CORROSION SPECIALIST Unavailable Encounter Details Date Type Department Care Team (Late st Contact Info) Description 12/22/2024 Bamboo flowsheet [facility] [address] [place] [address] Xena Mccallum MD [address] [place] [address] Social History Tobacco Use Types Packs/Day Years [...] AM EDT Office Visit NICOLETTE AVERY [address] [facility] [place] [address] Ingrid Villalta NP [address] [facility] [place] [address] 01/04/2025 2:00 PM EDT Office Visit [facility] [address] [place] [phone] Xena Mccallum MD [address] [facility] [place] [address] documented as of this encounter Visit Diagnoses Not on filedocumented in this encounter Care Teams Hammer Adjuster Relationship Specialty Start Date End Date Xena Mccallum MD [facility] [place], [place] [phone] PCP - General Family Medicine 09/04/22 Isabel Li NP PCP - [facility] 10/28/23 documented as of this encounter
--- OUTSIDE RECORDS SUMMARY | 2025-01-02 15:41 | XMS_ITS | Encounter Summary ---
Author Organization [facility] Address [address] [facility] [place] [address] Care Team Providers Care Engineering Equipment Operator Name Role Phone Xena Mccallum MD Primary Care Provider [phone] Isabel Li DIRECTOR OF PURCHASING Unavailable Encounter Details Date Type Department Care Team (Late st Contact Info) Description 11/12/2024 Abstract NICOLETTE Wilson OBJOVANNIN [address] [facility] [place] [address] Douglas Lewis DO [address] [facility] [address] [place] [phone] Social History Tobacco Use Types Packs/Day Years [...] [place] [address] Ingrid Villalta NP [address] [facility] [place] [address] 01/04/2025 2:00 PM EDT Office Visit [facility] [address] [facility] [place] [phone] Xena Mccallum MD [address] [facility] [place], [place] [address] documented as of this encounter Visit Diagnoses Not on filedocumented in this encounter Care Teams Engineering Equipment Operator Relationship Specialty Start Date End Date Xena Mccallum MD [facility] [facility] [place], [place] [phone] PCP - General Family Medicine 09/04/22 Isabel Li NP PCP - [facility] 10/28/23 documented as of this encounter
--- OUTSIDE RECORDS SUMMARY | 2025-01-02 15:42 | XMS_ITS | CCD ---
Author Organization [facility] Care Team Providers Care Mask Designer Name Role Phone XENA MCCALLUM Primary Care [...] Unavailable Xena Mccallum MD Primary Care Provider [phone] Guillermo ALVARADO, Isabel Higgins Unavailable Guillermo [employer], Isabel R Unavailable Debbie DO, Douglas Attending Provider [phone] Debbie, Douglas Attending Unavailable Debbie, Douglas Admitting Unavailable DEBBIE, DOUGLAS Attending Unavailable DUSTIN, MADDIE Attending Unavailable DUSTIN, MADDIE Referring Unavailable DEBBIE, DOUGLAS Attending Unavailable DEBBIE, DOUGLAS Attending Unavailable DEBBIE, DOUGLAS Attending Unavailable DEBBIE, DOUGLAS Referring Unavailable DEBBIE, DOUGLAS Attending Unavailable DEBBIE, DOUGLAS Attending Unavailable DEBBIE, DOUGLAS Attending Unavailable DUSTIN, MADDIE Attending Unavailable DEBBIE, DOUGLAS Attending Unavailable DEBBIE, DOUGLAS Attending Unavailable MARY, XNEA F Attending Unavailable MARY, XENA F Attending Unavailable MARY, XENA F Referring Unavailable Allergies Allergy Classification Reported Allergen(s) Allergy Type Date of Onset Reaction(s) Facility (20 sources) Clindamycin; Translations: [clindamycin] Drug Allergy 4 Swelling [facility] (3 sources) Penicillin; Translations: [penicillin] Drug Allergy Rash [facility] (2 sources) Clindamycin Drug Allergy 1 [facility] (1 source) Penicillins Drug allergy (disorder) 4 [facility] (20 sources) Lamotrigine Allergy to substance 4 [facility] (20 sources) Morphine Drug Allergy 4 Hives [facility] (20 sources) Penicillins Drug Allergy 6 Rash, Unknown [facility] Medications Current Medications Medication Drug Class(es) Dates Sig (Normalized) Sig (Original) busPIRone hydrochloride 10 mg oral tablet (20 sources) Start: 12-10-2023 End: 01-08-2025 busPIRone (Buspar) 10 MG tablet Indications: Anxiety, generalized TAKE 1 TABLET BY MOUTH IF NEEDED (1/2 TABLET NEEDED AT BEDTIME) 135 tablet 1 11/16/2024 Active Start: 03-22-2021 take 1 mg by mouth twice daily busPIRone 5 mg Tab mg tab(s), Oral, BID, Refills(s) 0 Start Date: 03/22/21 Status: Ordered Calcium Carbonate (20 sources) take 1 tablet by mouth once [...] (20 mg) by mouth Daily 30 tablet 10/20/2024 10/20/2025 Active ferrous sulfate 325 mg oral tablet (20 sources) take 1 tablet by mouth once [...] Status: Ordered MV-Min-Fe Fum-FA-DHA ( 1 PO) (20 sources) MV-Min-Fe Fum-FA-DHA ( 1 PO) Take [...] for nausea. 30 tablet 2 06/17/2024 Active 24 hr propranolol hydrochloride 80 mg extended release oral capsule (2 sources) beta-Adrenergic Marichuy Start: 12-22-2024 End: 12-22-2025 take 1 capsule by mouth once daily propranolol LA (Inderal LA) 80 MG 24 hr capsule Indications: Intractable chronic migraine without aura and with status migrainosus Take 1 capsule (80 mg) by mouth Daily Do not crush, chew, or split. 30 capsule 11 12/22/2024 12/22/2025 Active sulfamethoxazole 800 mg / trimethoprim 160 [...] muscle spasms 270 tablet 02/20/2024 09/23/2024 Discontinued traZODone hydrochloride 100 mg oral [...] before bedtime. 60 tablet 08/03/2024 09/02/2024 Active labetalol hydrochloride 200 mg oral tablet (5 sources) beta-Adrenergic Marichuy Start: 11-14-2024 End: 12-22-2024 take 1 tablet by mouth in the morning labetalol (Normodyne) 200 MG tablet Take 1 tablet by mouth in the morning and 1 tablet before bedtime. 11/14/2024 12/22/2024 Discontinued (Therapy completed) topiramate 25 mg oral tablet (20 sources) Start: 08-08-2023 End: 02-17-2025 take 1 tablet by mouth in the morning topiramate (Topamax) 25 MG tablet Indications: Postop check , Migraine without aura and without status migrainosus, not intractable Take 1 tablet (25 mg) by mouth in the morning and 1 tablet (25 mg) before bedtime. 180 tablet 3 11/19/2024 12/22/2024 Discontinued (Therapy completed) Problems Active Problems Problem Classification Problem Date Documented Da te Episodic/Chronic Anxiety disorders (20 sources) Anxiety; Translations: [Anxiety disorder, unspecified] Onset: 4 06-18-2023 Chronic Deficiency and other anemia (20 sources) Iron deficiency anemia secondary to inadequate dietary iron intake; Translations: [Other iron deficiency anemias] Onset: 2 06-18-2023 Episodic Esophageal disorders (20 sources) Gastroesophageal reflux disease; Translations: [Gastro-esophageal reflux disease without esophagitis] Onset: 4 06-18-2023 Chronic Genitourinary symptoms and ill-defined conditions (3 sources) Microscopic hematuria; Translations: [Other microscopic hematuria] 01-11-2024 Episodic Headache; including migraine (5 sources) Refractory migraine without aura; Translations: [Chronic migraine [...] (hemorrhagic) thrombocythemia] Onset: 4 06-18-2023 Chronic Other aftercare (2 sources) Surgical follow-up; Translations: [Encounter for follow-up examination after completed treatment for conditions other than malignant neoplasm] 11-19-2024 Episodic Other gastrointestinal disorders (4 sources) Intestinal malabsorption, [...] Translations: [Anemia, unspecified] Onset: 06-18-2023 06-18-2023 Episodic Other aftercare (1 source) Other terminal carman (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; Translations: [OTH [facility] CURRENT DRUG THERAPY] Onset: 06-09-2021 Episodic Other [...] WITH AUTO DIFFon BASOPHILS ABSOLUTE AUTO 0.1 [facility] Basophils/100 WBC (Bld) 0.4 % 0.2 - 2.0 % [facility] Eosinophils/100 WBC (Bld) 0.1 % Low 0.9 - 7.0 % [facility] Erythrocyte distribution width (RBC) [Ratio] 15.6 % High 11.0 - 15.0 % [facility] Hematocrit (Bld) [Volume fraction] 25.4 % Low 36.0 - 48.0 % [facility] Hemoglobin (Bld) [Mass/Vol] 7.6 g/dL Low 12.0 - 16.0 g/dL [facility] IMMATURE GRANULOCYTES ABS AUTO 0.11 High [facility] Immature granulocytes/100 WBC (Bld) 0.7 % High 0.0 - 0.5 % [facility] Interpretation and review of laboratory results Abnormal [facility] LYMPHOCYTES ABSOLUTE AUTO 4.6 High [facility] Lymphocytes/100 WBC (Bld) 29.8 % 20.5 - 60.0 % [facility] MCH (RBC) [Entitic mass] 21 pg Low 26.7 - 34.0 pg [facility] MCHC (RBC) [Mass/Vol] 29.9 g/dL 29.9 - 35.2 g/dL [facility] MCV (RBC) [Entitic vol] 70.2 fL Low 81.0 - 99.0 fL [facility] MONOCYTES ABSOLUTE AUTO 1.2 High [facility] Monocytes/100 WBC (Bld) 8 % 1.7 - 12.0 % [facility] NEUTROPHILS ABSOLUTE AUTO 9.5 High [facility] Neutrophils/100 WBC (Bld) 61 % 43.0 - 75.0 % [facility] Platelet mean volume (Bld) [Entitic vol] 10.4 fL 9.5 - 13.5 fL [facility] TBH EO # 0 [facility] TBH PLT 244 [facility] RBC 3.62 Low [facility] TB WBC 15.5 High [facility] ALL CBC WITH AUTO DIFFon BASOPHILS ABSOLUTE AUTO 0 [facility] Basophils/100 WBC (Bld) 0.4 % 0.2 - 2.0 % [facility] Eosinophils/100 WBC (Bld) 0.4 % Low 0.9 - 7.0 % [facility] Erythrocyte distribution width (RBC) [Ratio] 15.8 % High 11.0 - 15.0 % [facility] Hematocrit (Bld) [Volume fraction] 32.8 % Low 36.0 - 48.0 % [facility] Hemoglobin (Bld) [Mass/Vol] 10.1 g/dL Low 12.0 - 16.0 g/dL [facility] IMMATURE GRANULOCYTES ABS AUTO 0.04 High [facility] Immature granulocytes/100 WBC (Bld) 0.4 % 0.0 - 0.5 % [facility] Interpretation and review of laboratory results Abnormal [facility] LYMPHOCYTES ABSOLUTE AUTO 3.5 [facility] Lymphocytes/100 WBC (Bld) 39.4 % 20.5 - 60.0 % [facility] MCH (RBC) [Entitic mass] 21.4 pg Low 26.7 - 34.0 pg [facility] MCHC (RBC) [Mass/Vol] 30.8 g/dL 29.9 - 35.2 g/dL [facility] MCV (RBC) [Entitic vol] 69.6 fL Low 81.0 - 99.0 fL [facility] MONOCYTES ABSOLUTE AUTO 0.5 [facility] Monocytes/100 WBC (Bld) 5.8 % 1.7 - 12.0 % [facility] NEUTROPHILS ABSOLUTE AUTO 4.8 [facility] Neutrophils/100 WBC (Bld) 53.6 % 43.0 - 75.0 % [facility] Platelet mean volume (Bld) [Entitic vol] 10.4 fL 9.5 - 13.5 fL [facility] EO # 0 [facility] PLT 313 [facility] RBC 4.71 [facility] WBC 9 [facility] Dayo 11-12-2024 L Specimen: [id number] Received: 11/13/24 Status: NUHA Sharifcj Num: [id number] Spec Type: Surgical Subm Dr: Douglas Lewis Tissues: A Placenta - 3rd Trimester (Greater than 28 weeks) (PLACENTA) Procedures: HE/3, Gross/Micro L5 Age/ Patient Sex Location Account Attending Physician Tan Mars 29/ LABELL [id number] Douglas Lewis SPEC NUM: [id number] RECD: 11/13/24 STATUS: NUHA ELIDIA NUM: [id number] OMID: 11/12/[address]: Douglas Lewis ENTERED: 11/13/[address]: Steve,Lab SPEC TYPE: Surgical DEPT: YAEL TRUONG ENTERED BY: [id number] RECV BY: [id number] ORDERED: HE/3, Gross/Micro L5 ORDERED: HE/3, Gross/Micro L5 Pathological Diagnosis Placenta, clinically 39 weeks gestational age, section delivery: - Three-vessel umbilical cord with no evidence of acute funisitis identified. - membranes with pigment-laden macrophages consistent with meconium staining - Histologically mature third trimester placental disc (Weight: 586 grams) with focal subchorionic hemorrhage and intervillous thrombosis. Clinical Information Previous , placenta-: 2, parity: 2, gestational age of 39 weeks, meconium stained Gross Description Part A is received in formalin labeled with the patients name, date of , and placenta : Single MEMBRANES: Placenta Sac Rupture (cm from margin): Indeterminate, greater than 95% disrupted Color: Blue-tobin to tannish Other Characteristics: Partially stripped amnion and mucoid Insertion Site: 85% marginal, 15% circummarginate CORD: Appearance: Unremarkable Specimen: [id number] Received: 11/13/24 Status: NUHA Chavarria Num: [id number] Spec Type: Surgical Subm Dr: Douglas Lewis Tissues: A Placenta - 3rd Trimester (Greater than 28 weeks) (PLACENTA) Procedures: LIDAParesh, Gross/Micro L5 Patient: Tan Mars [id number] (Continued) Specimen: [id number] Received: 11/13/24 (Continued) Gross Description (Continued) Signed (signature on file) Cody Cherry MD 11/18/24 1049 Specimen: [id number] Received: 11/13/24 Status: NUHA Chavarira Num: [id number] Spec Type: Surgical Subm Dr: Douglas Lewis Tissues: A Placenta - 3rd Trimester (Greater than 28 weeks) (PLACENTA) Procedures: HE/3, Gross/Micro L5 Patient: Tan Mars [id number] (Continued) Specimen: [id number] Received: 11/13/24 (Continued) Gross Description (Continued) Site of Insertion: Eccentric, 4 cm from the margin Length Diameter (cm): 33 x 1.1 cm Number of revolutions: 16 True Knots: No Number of vessels: 3 GENERAL: Trimmed Weight (grams): 586 g Complete: Yes Size 1 x Size 2 x Size 3 (cm): 18.5 x 17 x 3.2 cm Accessory Lobe(s): No PLACENTAL DISK: Color of Surface: Blue-tobin to tannish Sub-amniotic Cyst: No Amnion Nodosum: No Subchorionic Fibrin: Yes, up to 0.3 cm in thickness, less than 5% Appearance of Cut Surface: There are 2 paramarginally located thrombi, 0.8 and 1.2 cm in greatest dimension (less than 5%). Maternal floor: Unremarkable Retroplacental hematoma: There is a paramarginally located, 1.1 cm in greatest dimension subchorionic hematoma (less than 5%). Cassettes: A1 Rolled membrane, two sections of cord A2-A3 Diagnostic Radiologist sections of placenta (to include thrombus in A2 with subchorionic hematoma in A3) (3, ss, WF14-012 A) Microscopic Description Microscopic examination is performed. CPT Codes 69376 Specimen: [id number] Received: 11/13/24 Status: NUHA Chavarria Num: [id number] Spec Type: Surgical Subm Dr: Douglas Lewis Tissues: A Placenta - 3rd Trimester (Greater than 28 weeks) (PLACENTA) Procedures: HE/3, Gross/Micro L5 Patient: Macario (more content not included)... Normal [facility] US OB BPP W NON-STRESS on 11-11-2024 [place] [address] Ultrasound Report Signed Patient: TAN MARS MR#: [id number] : 1995 Acct:[id number] Age/Sex: 29 / F ADM Date: 11/11/24 Loc: [facility] 256-[address]: Douglas Lewis D.O. Ordering Physician: Douglas Lewis D.O. Date of Service: 11/11/24 Procedure(s): US OB BPP w non-stress Accession Number(s): [id number] cc: XENA MCCALLUM ; Douglas Lewis D.O. [address] [address] Patient Name: TAN MARS MRN: [facility]:[id number] date: 1995 Sex: F Assigned Patient Location: [facility] Current Patient Location: [facility] Accession/Order Number: [id number] Exam Date: 11/11/2024 10:06 Report Date: 11/11/2024 [...] Morales M.D. 11/11/2024 10:08 AM Dictation Location: [place] [address] Electronically authenticated by: [id number] Y Date: 11/11/2024 10:08 Dictated By: Thelma Morales M.D. Signed By: 11/11/24 1010 DD/ 1008 TD/TT: Sample Color Maker: [facility] Radiology, Radiologist, - 11/11/2024 [place] [address] Ultrasound Report Signed Patient: TAN MARS MR#: [id number] : 1995 Acct:[id number] Age/Sex: 29 / F ADM Date: 11/11/24 Loc: [facility] 256-[address]: Douglas Lewis D.O. Ordering Physician: Douglas Lewis D.O. Date of Service: 11/11/24 Procedure(s): US OB BPP w non-stress Accession Number(s): [id number] cc: XENA MCCALLUM ; Douglas Lewis D.O. The [address] [address] Patient Name: TAN MARS MRN: [facility]:[id number] date: 1995 Sex: F Assigned Patient Location: [facility] Current Patient Location: [facility] Accession/Order Number: [id number] Exam Date: 11/11/2024 10:06 Report Date: 11/11/2024 [...] Morales M.D. 11/11/2024 10:08 AM Dictation Location: [place] [address] Electronically authenticated by: [id number] Y Date: 11/11/2024 10:08 Dictated By: Thelma Morales M.D. Signed By: 11/11/24 1010 DD/ 1008 TD/TT: Sample Color Maker: [facility] Radiology Study observation (narrative) [facility] US OB BPP W NON-STRESS Ordered By: Radiologist Radiology on 11-11-2024 [facility] Work Phone: US OB BPP W NON-STRESS on 11-04-2024 [place] [address] Ultrasound Report Signed Patient: TAN MARS MR#: [id number] : 1995 Acct:[id number] Age/Sex: 29 / F ADM Date: 11/04/24 Loc: [facility] 250-[address]: Douglas Lewis D.O. Ordering Physician: Douglas Lewis D.O. Date of Service: 11/04/24 Procedure(s): US OB BPP w non-stress Accession Number(s): [id number] cc: XENA MCCALLUM ; Douglas Lewis D.O. The [address] [address] Patient Name: TAN MARS MRN: [facility]:[id number] date: 1995 Sex: F Assigned Patient Location: Current Patient Location: US Accession/Order Number: [id number] Exam Date: 11/04/2024 09:43 Report Date: 11/04/2024 [...] Morales M.D. 11/04/2024 9:44 AM Dictation Location: [place] [address] Electronically authenticated by: [id number] Y Date: 11/04/2024 09:44 Dictated By: Thelma Morales M.D. Signed By: 11/04/24946 DD/ 3 TD/TT: Sample Color Maker: [facility] Radiology, Radiologist, - 11/04/2024 [place] [address] Ultrasound Report Signed Patient: TAN MARS MR#: [id number] : 1995 Acct:[id number] Age/Sex: 29 / F ADM Date: 11/04/24 Loc: [facility] 250-[address]: Douglas Lewis D.O. Ordering Physician: Douglas Lewis D.O. Date of Service: 11/04/24 Procedure(s): US OB BPP w non-stress Accession Number(s): [id number] cc: XENA MCCALLUM ; Douglas Lewis D.O. [place] [address] Patient Name: TAN MARS MRN: [facility]:[id number] date: 1995 Sex: F Assigned Patient Location: Current Patient Location: US Accession/Order Number: [id number] Exam Date: 11/04/2024 09:43 Report Date: 11/04/2024 [...] Morales M.D. 11/04/2024 9:44 AM Dictation Location: [place] [address] Electronically authenticated by: [id number] Y Date: 11/04/2024 09:44 Dictated By: Thelma Morales M.D. Signed By: 11/04/24946 DD/ 3 TD/TT: Sample Color Maker: [facility] Radiology Study observation (narrative) [facility] US OB BPP W NON-STRESS Ordered By: Radiologist Radiology on 11-04-2024 [facility] Work Phone: Urinalysis macro (dipstick) panel (U)on 11-04-2024 Bilirubin, UA Negative Negative - 4(70) +++ mg/dL [facility] Blood, UA Negative Negative - 50 Liam/mcL [facility] Clarity, UA Clear [facility] Color, UA Yellow [facility] Glucose, UA Negative Negative - 1999(110) ++++ mg/dL [facility] Interpretation and review of laboratory results Abnormal [facility] Ketones, UA Negative Negative - 160(16) ++++ mg/dL [facility] Leukocytes, UA Negative Negative - 500+++ Mele/mcL [facility] Nitrite, UA Negative Negative - Positive [facility] pH, UA 6 5 - 9 [facility] Protein, UA Trace Negative - 1999(20) ++++ mg/dL [facility] Spec Grav, UA 1.025 1 - 1.03 [facility] Urobilinogen, UA 1.0 0.2 - 12 mg/dL [facility] No Panel InformationOrdered By: Jordyn Smith on 10-28-2024 [facility] US OB BPP W NON-STRESS on 10-28-[address] [address] Ultrasound Report Signed Patient: TAN MARS MR#: [id number] : 1995 Acct:[id number] Age/Sex: 29 / F ADM Date: 10/28/24 Loc: US Attending Dr: Douglas Lewis D.O. Ordering Physician: Douglas Lewis D.O. Date of Service: 10/28/24 Procedure(s): US OB BPP w non-stress Accession Number(s): [id number] cc: XENA MCCALLUM ; Douglas Lewis D.O. [address] [address] Patient Name: TAN MARS MRN: [facility]:[id number] date: 1995 Sex: F Assigned Patient Location: [facility] Current Patient Location: Accession/Order Number: [id number] Exam Date: 10/28/2024 14:44 Report Date: 10/28/2024 14:46 At the request of: DOUGLAS LEWIS DO Procedure: US OB BPP w non-stress Biophysical profile. Reason for exam: History of gastric bypass. COMPARISON: BPP 10/21/2024 TECHNIQUE: Transabdominal imaging of the gravid uterus was obtained. FINDINGS: Telecommunications Equipment Installer reports a BPP of 8 out of 8. PATITO is normal at 23.7 cm. heart rate 145 bpm. US/US OB BPP w non-stress IMPRESSION: BPP 8 out of 8. Impression dictated by: Isac Becker Jr., D.O. 10/28/2024 2:46 PM Dictation Location: [place] [address] Electronically authenticated by: [id number] Y Date: 10/28/2024 14:46 Dictated By: Isac Becker M.D. Signed By: 10/28/24 1449 DD/ 1446 TD/TT: Sample Color Maker: [facility] Radiology, Radiologist, MD - 10/28/2024 [place] [address] Ultrasound Report Signed Patient: TAN MARS MR#: [id number] : 1995 Acct:[id number] Age/Sex: 29 / F ADM Date: 10/28/24 Loc: US Attending Dr: Douglas Lewis D.O. Ordering Physician: Douglas Lewis D.O. Date of Service: 10/28/24 Procedure(s): US OB BPP w non-stress Accession Number(s): [id number] cc: XENA MCCALLUM ; Douglas Lewis D.O. The [place] [id number] Patient Name: TAN MARS MRN: [facility]:[id number] date: 1995 Sex: F Assigned Patient Location: [facility] Current Patient Location: Accession/Order Number: [id number] Exam Date: 10/28/2024 14:44 Report Date: 10/28/2024 14:46 At the request of: DOUGLAS LEWIS DO Procedure: US OB BPP w non-stress Biophysical profile. Reason for exam: History of gastric bypass. COMPARISON: BPP 10/21/2024 TECHNIQUE: Transabdominal imaging of the gravid uterus was obtained. FINDINGS: Telecommunications Equipment Installer reports a BPP of 8 out of 8. PATITO is normal at 23.7 cm. heart rate 145 bpm. US/US OB BPP w non-stress IMPRESSION: BPP 8 out of 8. Impression dictated by: Isac Becker Jr., D.O. 10/28/2024 2:46 PM Dictation Location: [place] [address] Electronically authenticated by: [id number] Y Date: 10/28/2024 14:46 Dictated By: Isac Becker M.D. Signed By: 10/28/24 1449 DD/ 1446 TD/TT: Sample Color Maker: [facility] [email or web address] Radiology Study observation (narrative) [facility] US OB BPP W NON-STRESS Ordered By: Radiologist Radiology on 10-28-2024 [facility] [email or web address] Work Phone: US OB BPP W NON-STRESS on 10-21-2024 [place] [address] Ultrasound Report Signed Patient: TAN MARS MR#: [id number] : 1995 Acct:[id number] Age/Sex: 29 / F ADM Date: 10/21/24 Loc: US Attending Dr: Douglas Lewis D.O. Ordering Physician: Douglas Lewis D.O. Date of Service: 10/21/24 Procedure(s): US OB BPP w non-stress Accession Number(s): [id number] cc: XENA MCCALLUM ; Douglas Lewis D.O. [address] [address] Patient Name: TAN MARS MRN: [facility]:[id number] date: 1995 Sex: F Assigned Patient Location: US Current Patient Location: US Accession/Order Number: [id number] Exam Date: 10/21/2024 16:11 Report Date: 10/21/2024 16:12 At the request of: DOUGLAS LEWIS DO Procedure: US OB BPP w non-stress Biophysical profile. Reason for exam: History of gastric bypass. COMPARISON: BPP 10/14/2024. TECHNIQUE: Transabdominal imaging of the gravid uterus was obtained. FINDINGS: Telecommunications Equipment Installer reports a BPP of 8 out of 8. PATITO is normal at 20.6 cm. heart rate 147 bpm. US/US OB BPP w non-stress IMPRESSION: BPP 8 out of 8. Impression dictated by: Isac Becker Jr., D.O. 10/21/2024 4:12 PM Dictation Location: [place] [address] Electronically authenticated by: [id number] Y Date: 10/21/2024 16:12 Dictated By: Isac Becker M.D. Signed By: 10/21/24 1614 DD/ 161 TD/TT: Sample Color Maker: [facility] Radiology, Radiologist, - 10/21/2024 [place] [address] Ultrasound Report Signed Patient: TAN MARS MR#: [id number] : 1995 Acct:[id number] Age/Sex: 29 / F ADM Date: 10/21/24 Loc: US Attending Dr: Douglas Lewis D.O. Ordering Physician: Douglas Lewis D.O. Date of Service: 10/21/24 Procedure(s): US OB BPP w non-stress Accession Number(s): [id number] cc: XENA MCCALLUM ; Douglas Lewis D.O. The [address] [address] Patient Name: TAN MARS MRN: [facility]:[id number] date: 1995 Sex: F Assigned Patient Location: Current Patient Location: US Accession/Order Number: [id number] Exam Date: 10/21/2024 16:11 Report Date: 10/21/2024 16:12 At the request of: DOUGLAS LEWIS DO Procedure: US OB BPP w non-stress Biophysical profile. Reason for exam: History of gastric bypass. COMPARISON: BPP 10/14/2024. TECHNIQUE: Transabdominal imaging of the gravid uterus was obtained. FINDINGS: Telecommunications Equipment Installer reports a BPP of 8 out of 8. PATITO is normal at 20.6 cm. heart rate 147 bpm. US/US OB BPP w non-stress IMPRESSION: BPP 8 out of 8. Impression dictated by: Isac Becker Jr., D.O. 10/21/2024 4:12 PM Dictation Location: [place] [address] Electronically authenticated by: [id number] Y Date: 10/21/2024 16:12 Dictated By: Isac Becker M.D. Signed By: 10/21/24 1614 DD/ 1612 TD/TT: Sample Color Maker: [facility] Radiology Study observation (narrative) [facility] US OB BPP W NON-STRESS Ordered By: Radiologist Radiology on 10-21-2024 [facility] Work Phone: Urinalysis macro (dipstick) panel (U)on 10-21-2024 Bilirubin, UA Negative Negative - 4(70) +++ mg/dL [facility] Blood, UA Negative Negative - 50 Liam/mcL [facility] Clarity, UA Clear [facility] Color, UA Yellow [facility] Glucose, UA Negative Negative - 1999(110) ++++ mg/dL [facility] Interpretation and review of laboratory results Abnormal [facility] Ketones, UA Negative Negative - 160(16) ++++ mg/dL [facility] Leukocytes, UA Positive Negative - 500+++ Mele/mcL [facility] Comment on above: small Nitrite, UA Negative Negative - Positive [facility] pH, UA 6 5 - 9 [facility] Protein, UA Negative Negative - 1999(20) ++++ mg/dL [facility] Spec Grav, UA 1.03 1 - 1.03 [facility] Urobilinogen, UA 0.2 0.2 - 12 mg/dL [facility] OB BPP W NON-STRESS on 10-14-[address] [address] Ultrasound Report Signed Patient: TAN MARS MR#: [id number] : 1995 Acct:[id number] Age/Sex: 29 / F ADM Date: 10/14/24 Loc: US Attending Dr: Douglas Lewis D.O. Ordering Physician: Douglas Lewis D.O. Date of Service: 10/14/24 Procedure(s): US OB BPP w non-stress Accession Number(s): [id number] cc: XENA MCCALLUM ; Douglas Lewis D.O. [address] [id number] Patient Name: TAN MARS MRN: [id number] date: 1995 Sex: F Assigned Patient Location: [facility] Current Patient Location: Accession/Order Number: [id number] Exam Date: 10/14/2024 09:47 Report Date: 10/14/2024 [...] Morales M.D. 10/14/2024 9:51 AM Dictation Location: [place] [address] Electronically authenticated by: [id number] Y Date: 10/14/2024 09:51 Dictated By: Thelma Morales M.D. Signed By: 10/14/2454 DD/ TD/TT: Sample Color Maker: [facility] Radiology, Radiologist, MD - 10/14/2024 [place] [address] Ultrasound Report Signed Patient: TAN MARS MR#: [id number] : 1995 Acct:[id number] Age/Sex: 29 / F ADM Date: 10/14/24 Loc: US Attending Dr: Douglas Lewis D.O. Ordering Physician: Douglas Lewis D.O. Date of Service: 10/14/24 Procedure(s): US OB BPP w non-stress Accession Number(s): [id number] cc: XENA MCCALLUM ; Douglas Lewis D.O. The [place] [address] Patient Name: TAN MARS MRN: [facility]:[id number] date: 1995 Sex: F Assigned Patient Location: [facility] Current Patient Location: Accession/Order Number: [id number] Exam Date: 10/14/2024 09:47 Report Date: 10/14/2024 [...] Morales M.D. 10/14/2024 9:51 AM Dictation Location: [place] [address] Electronically authenticated by: [id number] Y Date: 10/14/2024 09:51 Dictated By: Thelma Morales M.D. Signed By: 10/14/24 0954 DD/ 0951 TD/TT: Sample Color Maker: [facility] Radiology Study observation (narrative) [facility] US OB BPP W NON-STRESS Ordered By: Radiologist Radiology on 10-14-2024 [facility] [email or web address] Work Phone: US OB BPP W NON-STRESS on 10-07-2024 [place] [address] Ultrasound Report Signed Patient: TAN MARS MR#: [id number] : 1995 Acct:[id number] Age/Sex: 29 / F ADM Date: 10/07/24 Loc: US Attending Dr: Douglas Lewis D.O. Ordering Physician: Douglas Lewis D.O. Date of Service: 10/07/24 Procedure(s): US OB BPP w non-stress Accession Number(s): [id number] cc: XENA MCCALLUM ; Douglas Lewis D.O. The [address] [address] Patient Name: TAN MARS MRN: [facility]:[id number] date: 1995 Sex: F Assigned Patient Location: [facility] Current Patient Location: Accession/Order Number: [id number] Exam Date: 10/07/2024 09:20 Report Date: 10/07/2024 [...] Morales M.D. 10/07/2024 9:21 AM Dictation Location: [place] [address] Electronically authenticated by: [id number] Y Date: 10/07/2024 09:21 Dictated By: Thelma Morales M.D. Signed By: 10/07/24923 DD/ 0 TD/TT: Sample Color Maker: [facility] Radiology, Radiologist, MD - 10/07/2024 [place] [address] Ultrasound Report Signed Patient: TAN MARS MR#: [id number] : 1995 Acct:[id number] Age/Sex: 29 / F ADM Date: 10/07/24 Loc: US Attending Dr: Douglas Lewis D.O. Ordering Physician: Douglas Lewis D.O. Date of Service: 10/07/24 Procedure(s): US OB BPP w non-stress Accession Number(s): [id number] cc: XENA MCCALLUM Corey D.O. The [place] [id number] Patient Name: TAN MARS MRN: [id number] date: 1995 Sex: F Assigned Patient Location: [facility] Current Patient Location: Accession/Order Number: [id number] Exam Date: 10/07/2024 09:20 Report Date: 10/07/2024 [...] Morales M.D. 10/07/2024 9:21 AM Dictation Location: [place] [address] Electronically authenticated by: [id number] Y Date: 10/07/2024 09:21 Dictated By: Thelma Morales M.D. Signed By: 10/07/24923 DD/ 0 TD/TT: Sample Color Maker: [facility] Radiology Study observation (narrative) [facility] OB BPP W NON-STRESS Ordered By: Radiologist Radiology on 10-07-2024 [facility] Work Phone: Urinalysis macro (dipstick) panel (U)on 09-23-2024 Bilirubin, UA Negative Negative - 4(70) +++ mg/dL [facility] Blood, UA Negative Negative - 50 Liam/mcL [facility] Clarity, UA Clear [facility] Color, UA Yellow [facility] Glucose, UA Negative Negative - 1999(110) ++++ mg/dL [facility] Interpretation and review of laboratory results Abnormal [facility] Ketones, UA Negative Negative - 160(16) ++++ mg/dL [facility] Leukocytes, UA Trace Negative - 500+++ Mele/mcL [facility] Nitrite, UA Negative Negative - Positive [facility] pH, UA 7.5 5 - 9 [facility] Protein, UA Negative Negative - 1999(20) ++++ mg/dL [facility] Spec Grav, UA 1.02 1 - 1.03 [facility] Urobilinogen, UA 0.2 0.2 - 12 mg/dL [facility] US OB FOLLOW UP TRANSABDOMIN AL APPROACHon [...] II, MD, PHD at 15-Sep-2024 10:59:56 PM [facility] Normal Not Available Comment on above: Order Comment: US OB SCAN FOR GROWTH Estimated Date of Delivery: 11/19/24 Gestational Age as of 09/08/2024: 29w5d [facility] CMP (CMP) (FOR REMOTE FH C USE)on 07-22-2024 Albumin [Mass/Vol] 2.9 g/dL Low 3.4 - 5.0 g/dL [facility] ALBUMIN GLOBULIN RATIO 0.7 NO [facility] ALP [Catalytic activity/Vol] 72 U/L 46 - 116 U/L [facility] ALT [Catalytic activity/Vol] 17 U/L 14 - 59 U/L [facility] Anion gap [Moles/Vol] 11.3 mmol/L NO [facility] AST [Catalytic activity/Vol] 17 U/L 15 - 37 U/L [facility] Bilirubin [Mass/Vol] 0.2 mg/dL 0.2 - 1 .0 mg/dL [facility] Calcium [Mass/Vol] 8.5 mg/dL 8.5 - 10. 1 mg/dL [facility] Chloride [Moles/Vol] 104 mmol/L 98 - 10 7 mmol/L [facility] CO2 [Moles/Vol] 25.6 mmol/L 21.0 - 32.0 mmol/L [facility] Creatinine [Mass/Vol] 0.49 mg/dL Low 0.55 - 1.02 mg/dL [facility] GFR/1.73 sq M.predicted CKD-EPI (S/P/Bld) [Vol rate/Area] >60 >=60 mL/min/1.73m 2 [facility] Globulin (S) [Mass/Vol] 4.1 g/dL [facility] Glucose [Mass/Vol] 85 mg/dL 74 - 106 mg/dL [facility] Interpretation and review of laboratory results Abnormal [facility] Potassium [Moles/Vol] 3.9 mmol/L 3.5 - 5.1 mmol/L [facility] Protein [Mass/Vol] 7 g/dL 6.4 - 8.2 g/dL [facility] Sodium [Moles/Vol] 137 mmol/L 136 - 145 mmol/L [facility] TBH EGFR-NON AF TAIWANESE >60 >=60 mL/min/1.73m 2 [facility] Urea nitrogen [Mass/Vol] 10 mg/dL 7.0 - 18.0 mg/dL [facility] Urea nitrogen/Creatinine [Mass ratio] 20.4 mg/mg [facility] METRO BILIRUBIN, DIRECTon Bilirubin.indirect [Mass/Vol] mg/dL 0.0 - 0.2 mg/dL [facility] No Panel Informationon 07-22 [facility] Urinalysis macro (dipstick) panel (U)on 07-16-2024 Bilirubin, UA Negative Negative - 4(70) +++ mg/dL [facility] Blood, UA Negative Negative - 50 Liam/mcL [facility] Clarity, UA Cloudy [facility] Color, UA Yellow [facility] Glucose, UA 1+ Negative - 2000(110) ++++ mg/dL [facility] Comment on above: 500mg Interpretation and review of laboratory results Abnormal [facility] Ketones, UA Positive Negative - 160(16) ++++ mg/dL [facility] Comment on above: trace Leukocytes, UA Trace Negative - 500+++ Mele/mcL [facility] Nitrite, UA Negative Negative - Positive [facility] pH, UA 7 5 - 9 [facility] Protein, UA Negative Negative - 2000(20) ++++ mg/dL [facility] Spec Grav, UA 1.015 1 - 1.03 [facility] Urobilinogen, UA 0.2 0.2 - 12 mg/dL [facility] US OB 14+ WEEKS ANATOMY SCAN on [...] II, MD, PHD at 11-Jul-2024 06:17:29 PM [facility] Normal Not Available Comment on above: Order Comment: US OB ANATOMY SINGLE W US OB CERVICAL LENGTH Estimated Date of Delivery: 11/19/24 Gestational Age as of 06/17/2024: 17w6d Urinalysis macro (dipstick) panel (U)on 06-17-2024 Bilirubin, UA Negative Negative - 4(70) +++ mg/dL [facility] Blood, UA Negative Negative - 50 Liam/mcL [facility] Clarity, UA Clear [facility] Color, UA Yellow [facility] Glucose, UA Negative Negative - 1999(110) ++++ mg/dL [facility] Interpretation and review of laboratory results Abnormal [facility] Ketones, UA Negative Negative - 160(16) ++++ mg/dL [facility] Leukocytes, UA Positive Negative - 500+++ Mele/mcL [facility] Comment on above: small Nitrite, UA Negative Negative - Positive [facility] pH, UA 7 5 - 9 [facility] Protein, UA Positive Negative - 1999(20) ++++ mg/dL [facility] Comment on above: 30 mg Spec Grav, UA 1.015 1 - 1.03 [facility] Urobilinogen, UA 0.2 0.2 - 12 mg/dL [facility] Urinalysis macro (dipstick) panel (U)on 05-20-2024 Bilirubin, UA Negative Negative - 4(70) +++ mg/dL [facility] Blood, UA Negative Negative - 50 Liam/mcL [facility] Clarity, UA Clear [facility] Color, UA Yellow [facility] Glucose, UA Negative Negative - 1999(110) ++++ mg/dL [facility] Interpretation and review of laboratory results Normal [facility] Ketones, UA Negative Negative - 160(16) ++++ mg/dL [facility] Leukocytes, UA Negative Negative - 500+++ Mele/mcL [facility] Nitrite, UA Negative Negative - Positive [facility] pH, UA 5.5 5 - 9 [facility] Protein, UA Negative Negative - 1999(20) ++++ mg/dL [facility] Spec Grav, UA 1.03 1 - 1.03 [facility] Urobilinogen, UA 0.2 0.2 - 12 mg/dL [facility] BOX TESTon 05-11-2024 BOX TEST SENT OUT [facility] BOX1 [facility] BOX2 05/11/2024 [facility] Ql (U)o n 04-17-2024 Interpretation and review of laboratory results Abnormal [facility] Preg Test, Ur Positive Negative [facility] Urinalysis macro (dipstick) panel (U)on 04-17-2024 Bilirubin, UA Negative Negative - 4(70) +++ mg/dL [facility] Blood, UA Negative Negative - 50 Liam/mcL [facility] Clarity, UA Clear [facility] Color, UA Yellow [facility] Glucose, UA Negative Negative - 1999(110) ++++ mg/dL [facility] Interpretation and review of laboratory results Normal [facility] Ketones, UA Negative Negative - 160(16) ++++ mg/dL [facility] Leukocytes, UA Negative Negative - 500+++ Mele/mcL [facility] Nitrite, UA Negative Negative - Positive [facility] pH, UA 6.5 5 - 9 [facility] Protein, UA Negative Negative - 1999(20) ++++ mg/dL [facility] Spec Grav, UA 1.02 1 - 1.03 [facility] Urobilinogen, UA 0.2 0.2 - 12 mg/dL [facility] ALL CBC WITH AUTO DIFFon BASOPHILS ABSOLUTE AUTO 0.1 [facility] Basophils/100 WBC (Bld) 0.6 % 0.2 - 2.0 % [facility] Eosinophils/100 WBC (Bld) 0.9 % 0.9 - 7.0 % [facility] Erythrocyte distribution width (RBC) [Ratio] 12.4 % 11.0 - 15.0 % [facility] Hematocrit (Bld) [Volume fraction] 43.7 % 36.0 - 48.0 % [facility] Hemoglobin (Bld) [Mass/Vol] 14.4 g/dL 12.0 - 16.0 g/dL [facility] IMMATURE GRANULOCYTES ABS AUTO 0.03 [facility] Immature granulocytes/100 WBC (Bld) 0.3 % 0.0 - 0.5 % [facility] Interpretation and review of laboratory results Abnormal [facility] LYMPHOCYTES ABSOLUTE AUTO 4.2 High [facility] Lymphocytes/100 WBC (Bld) 38.1 % 20.5 - 60.0 % [facility] MCH (RBC) [Entitic mass] 28.5 pg 26.7 - 34.0 pg [facility] MCHC (RBC) [Mass/Vol] 33.0 g/dL 29.9 - 35.2 g/dL [facility] MCV (RBC) [Entitic vol] 86.4 fL 81.0 - 99.0 fL [facility] MONOCYTES ABSOLUTE AUTO 0.7 [facility] Monocytes/100 WBC (Bld) 6.2 % 1.7 - 12.0 % [facility] NEUTROPHILS ABSOLUTE AUTO 5.9 [facility] Neutrophils/100 WBC (Bld) 53.9 % 43.0 - 75.0 % [facility] Platelet mean volume (Bld) [Entitic vol] 9.8 fL 9.5 - 13.5 fL [facility] TBH EO # 0.1 [facility] TB PLT 430 [facility] RBC 5.06 [facility] WBC 11.0 [facility] CT ABDOMEN PELVIS WO IV CONT [facility] 01-16-2024 CT ABDOMEN PELVIS WO IV CONTRAST [...] report is generated using voice recognition reporting ([employer]). On occasion [employer] erroneously drops words from the report or replaces the spoken word with similar sounding words. Please call with any questions/concerns regarding this report.* Dictated and transcribed 01/17/2024/anna Preliminary report sent to [facility] on 01/17/2024 at 9:45 a.m. Nikkie confirmed doctor has report in hand. This report has been electronically signed and approved by the interpreting radiologist. Electronically Signed Ab Retana M.D. 2024-01-17 11:31:48 Normal Not Available Comment on above: Order Comment: PEKVI C PAIN, PRESSURE, HEMATURIA, HX KIDNEY STONES Bacteria identified Cx Nom ( U)on 01-11-2024 Appearance (U) Adequate [facility] Internal identifier for Provider [id number] [facility] Specimen source Nom (Unsp spec) URINE [facility] STATUS FINAL [facility] - Microbiology an d Antimicrobial susceptibilityon 01-11-2024 Bacteria identified Cx Nom (U) SEE NOTE [facility] Comment on above: Less than 10,000 CFU/mL of single Gram negative organism isolated. No further testing will be performed. If clinically indicated, recollection using a method to minimize contamination, with prompt transfer to Urine Culture Transport Tube, is recommended. Laboratory - Miscellaneous t estson 01-11-2024 Service comment (Unsp spec) [Interp] [facility] Comment on above: This urine was sanju zed for the presence of WBC, RBC, bacteria, casts, and other formed elements. Only those elements seen were reported. No Panel Informationon 01-10 Performing Organization Information Site ID: QPT Name: [facility] Address: [address] [place] [address], [address] [place] [id number] Director: Brenden Conde MD [facility] Urinalysis complete panel (U )on 01-11-2024 Appearance (U) CLEAR CLEAR [facility] Bacteria LM.HPF (Urine sed) [#/Area] NONE SEEN NONE SEEN /HPF [facility] Bilirubin Ql (U) Negative NEGATIVE [facility] Color (U) YELLOW YELLOW [facility] Epithelial cells.squamous LM.HPF (Urine sed) [#/Area] 0-5 < OR = 5 /HPF [facility] Glucose Ql (U) Negative NEGATIVE [facility] Hemoglobin Ql (U) Negative NEGATIVE [facility] Hyaline casts (Urine sed) [#/Area] NONE SEEN NONE SEEN /LPF [facility] Interpretation and review of laboratory results Abnormal [facility] Ketones Ql (U) Negative NEGATIVE [facility] Leukocyte esterase Test strip Ql (U) 1+ Abnormal NEGATIVE [facility] Nitrite Ql (U) Negative NEGATIVE [facility] pH (U) 7.0 [pH] 5.0 - 8.0 [facility] Protein Ql (U) Negative NEGATIVE [facility] RBC LM.HPF (Urine sed) [#/Area] 3-10 Abnormal < OR = 2 /HPF [facility] Specific gravity (U) [Rel density] 1.015 1.001 - 1.035 [facility] WBC LM.HPF (Urine sed) [#/Area] 0-5 < OR = 5 /HPF [facility] Urinalysis macro (dipstick) panel (U)on 01-09-2024 Bilirubin, UA Negative Negative - 4(70) +++ mg/dL [facility] Blood, UA Positive Negative - 50 Liam/mcL [facility] Clarity, UA Clear [facility] Color, UA Light Yellow [facility] Glucose, UA Negative Negative - 1999(110) ++++ mg/dL [facility] Interpretation and review of laboratory results Abnormal [facility] Ketones, UA Negative Negative - 160(16) ++++ mg/dL [facility] Leukocytes, UA 1+ Negative - 500+++ Mele/mcL [facility] Nitrite, UA Negative Negative - Positive [facility] pH, UA 6.0 5 - 9 [facility] Protein, UA Trace Negative - 1999(20) ++++ mg/dL [facility] Spec Grav, UA 1.020 1 - 1.03 [facility] Urobilinogen, UA 1.0 0.2 - 12 mg/dL [facility] Physician Orderon 03-26-2023 Physician Order [id number] #1.00TIFF [facility] Formson 09-13-2022 Forms [id number] #1.00CD:127 [facility] XR KUB 1 VIEWon 04-09-2022 XR [...] by: GENARO RODRÍGUEZ Date: 2022-04-09 18:02 Normal [facility] VITAMIN B1 (THIAMINE)on Vit. B1, Whole Blood 117.7 nmol/L Normal 66.5-200.0 [facility] Comment on above: Performed By: #### C VDTBH #### [facility] [address] [place] [address] Dr. Kerrie Russell CBC AUTO DIFFon 02-28-2022 BASO # 0.1 103/ul Normal 0.0-0.1 [facility] Comment on above: Performed By: #### C BC #### [facility] [address] [place] [address] Dr. Kerrie Russell Basophils/100 WBC (Bld) 0.6 % Normal 0.2-2.0 [facility] Comment on above: Performed By: #### C BC #### [facility] [address] [place] [address] Dr. Kerrie Russell EO # 0.1 103/ul Normal 0.0-0.7 [facility] Comment on above: Performed By: #### C BC #### [facility] [address] [place] [address] Dr. Kerrie Russell Eosinophils/100 WBC (Bld) 1.3 % Normal 0.9-7.0 [facility] Comment on above: Performed By: #### C BC #### [facility] [address] [place] [address] Dr. Kerrie Russell Erythrocyte distribution width (RBC) [Ratio] 13.2 % Normal 11.0-15.0 [facility] Comment on above: Performed By: #### C BC #### [facility] [address] [place] [address] Dr. Kerrie Russell Hematocrit (Bld) [Volume fraction] 40.6 % Normal 36.0-48.0 [facility] Comment on above: Performed By: #### C BC #### [facility] [address] [place] [address] Dr. Kerrie Russell Hemoglobin (Bld) [Mass/Vol] 13.8 g/dL Normal 12.0-16.0 [facility] Comment on above: Performed By: #### C BC #### [facility] [address] [place] [address] Dr. Kerrie Russell IG # 0.02 10e3/ul Normal 0.00-0.03 [facility] Comment on above: Performed By: #### C BC #### [facility] [address] [place] [address] Dr. Kerrie Russell IG % 0.2 % Normal 0.0-0.5 [facility] Comment on above: Performed By: #### C BC #### [facility] [address] [place] [address] Dr. Kerrie Russell LYMPH # 4.3 103/ul Critically high 1.2-3.[address] [facility] Comment on above: Performed By: #### C BC #### [facility] [address] [place] [address] Dr. Kerrie Russell Lymphocytes/100 WBC (Bld) 49.2 % Normal 20.5-60.0 [facility] Comment on above: Performed By: #### C BC #### [facility] [address] [place] [address] Dr. Kerrie Russell MANUAL DIFF REQ NO Normal [facility] Comment on above: Performed By: #### C BC #### [facility] [address] [place] [address] Dr. Kerrie Russell MCH (RBC) [Entitic mass] 28.3 pg Normal 26.7-34.0 [facility] Comment on above: Performed By: #### C BC #### [facility] [address] [place] [address] [address] Kerrie Russell MCHC (RBC) [Mass/Vol] 34.0 g/dL Normal 29.9-35.2 [facility] Comment on above: Performed By: #### C BC #### [facility] [address] [place] [address] [address] Kerrie Russell MCV (RBC) [Entitic vol] 83.2 fL Normal 81.0-99.0 [facility] Comment on above: Performed By: #### C BC #### [facility] [address] [place] [address] [address] Kerrie Russell MONO # 0.5 103/ul Normal 0.3-0.8 [facility] Comment on above: Performed By: #### C BC #### [facility] [address] [place] [address] Dr. Kerrie Russell Monocytes/100 WBC (Bld) 5.9 % Normal 1.7-12.0 [facility] Comment on above: Performed By: #### C BC #### [facility] [address] [place] [address] Dr. Kerrie Russell NEUT # 3.7 103/ul Normal 1.4-6.5 [facility] Comment on above: Performed By: #### C BC #### [facility] [address] [place], [place] [id number] Dr. Kerrie Russell Neutrophils/100 WBC (Bld) 42.8 % Critically low 43.0-75.0 [facility] Comment on above: Performed By: #### C BC #### [facility] [address] [place], [place] [address] Dr. Kerrie Russell Platelet mean volume (Bld) [Entitic vol] 9.6 fL Normal 9.5-13.5 [facility] Comment on above: Performed By: #### C BC #### [facility] [address] [place] [address] Dr. Kerrie Russell PLT 403 103/ul Normal 150-450 [facility] Comment on above: Performed By: #### C BC #### [facility] [address] [place] [address] [address] Kerrie Russell RBC 4.88 106/ul Normal 4.20-5.40 [facility] Comment on above: Performed By: #### C BC #### [facility] [address] [place] [address] Dr. Kerrie Russell WBC 8.7 103/ul Normal 4.0-11.0 [facility] Comment on above: Performed By: #### C BC #### [facility] [address] [place] [address] Dr. Kerrie Russell FERRITINon 02-28-2022 Ferritin [Mass/Vol] 73.0 ng/mL Normal 6.2-137.0 [facility] Comment on above: Performed By: #### P HOS, MG, CMP #### [facility] [address] [place] [address] Dr. Kerrie Russell IRON AND TIBCon 02-28-2022 % SATURATION 12.4 % Normal [facility] Comment on above: Performed By: #### P HOS, MG, CMP #### [facility] [address] [place] [address] Dr. Kerrie Russell Iron [Mass/Vol] 44.0 ug/dL Critically low 50.0-170.0 [facility] Comment on above: Performed By: #### P HOS, MG, CMP #### [facility] [address] [place] [address] Dr. Kerrie Russell TIBC DIRECT 354.0 ug/dL Normal 250.0-450.0 [facility] Comment on above: Performed By: #### P HOS, MG, CMP #### [facility] [address] [place] [address] Dr. Kerrie Russell MAGNESIUMon 02-28-2022 Magnesium [Mass/Vol] 1.9 mg/dL Normal 1.8-2.4 [facility] Comment on above: Performed By: #### M G, PHOS, CMP #### [facility] [address] [place] [address] Dr. Kerrie Russell PHOSPHORUSon 02-28-2022 Phosphate [Mass/Vol] 3.7 mg/dL Normal 2.6-4.7 [facility] Comment on above: Performed By: #### SUZANNE Cook, CMP #### [facility] [address] [place] [address] Dr. Kerrie Russell PROF 14(COMP METB)on 022 Albumin [Mass/Vol] 3.9 g/dL Normal 3.4-5.0 [facility] Comment on above: Performed By: #### SUZANNE Cook, CMP #### [facility] [address] [place] [address] Dr. Kerrie Russell Albumin/Globulin [Mass ratio] 1.1 {ratio} Normal [facility] Comment on above: Performed By: #### SUZANNE Cook, CMP #### [facility] [address] [place] [address] Dr. Kerrie Russell ALP [Catalytic activity/Vol] 99 U/L Normal 46-116 [facility] Comment on above: Performed By: #### SUZANNE Cook, CMP #### [facility] [address] [place] [address] Dr. Kerrie Russell ALT [Catalytic activity/Vol] 32 U/L Normal 14-59 [facility] Comment on above: Performed By: #### SUZANNE Cook, CMP #### [facility] [address] [place] [address] Dr. Kerrie Russell Anion gap [Moles/Vol] 9.3 mmol/L Normal [facility] Comment on above: Performed By: #### SUZANNE Cook, CMP #### [facility] [address] [place] [address] Dr. Kerrie Russell AST [Catalytic activity/Vol] 17 U/L Normal 15-37 [facility] Comment on above: Performed By: #### SUZANNE Cook, CMP #### [facility] [address] [place] [address] Dr. Kerrie Russell Bilirubin [Mass/Vol] 0.2 mg/dL Normal 0.2-1.0 [facility] Comment on above: Performed By: #### SUZANNE Cook, CMP #### [facility] [address] [address] [address] Kerrie Russell Calcium [Mass/Vol] 8.5 mg/dL Normal 8.5-10.1 [facility] Comment on above: Performed By: #### M Daisha PHOS, CMP #### [facility] [address] [address] [address] Kerrie Russell Chloride [Moles/Vol] 107 mmol/L Normal 98-107 [facility] Comment on above: Performed By: #### M Daisha PHOS, CMP #### [facility] [address] [address] [address] Kerrie Russell CO2 [Moles/Vol] 27.0 mmol/L Normal 21.0-32.0 [facility] Comment on above: Performed By: #### Bryan Ashton PHOS, CMP #### [facility] [address] [place] [address] Dr. Kerrie Russell Creatinine [Mass/Vol] 0.65 mg/dL Normal 0.55-1.02 [facility] Comment on above: Performed By: #### Bryan Ashton PHOS, CMP #### [facility] [address] [address] [address] Kerrie Russell EGFR-AF TAIWANESE >60 Normal >=60 [facility] Comment on above: Performed By: #### NATHALY CookS, CMP #### [facility] [address] [address] [address] Kerrie Russell EGFR-NON AF TAIWANESE >60 Normal >=60 [facility] Comment on above: Performed By: #### Bryan Ashton PHOS, CMP #### [facility] [address] [address] [address] Kerrie Russell Globulin (S) [Mass/Vol] 3.6 g/dL Normal [facility] Comment on above: Performed By: #### Bryan Ashton PHOS, CMP #### [facility] [address] [address] [address] Kerrie Russell Glucose [Mass/Vol] 89 mg/dL Normal 74-106 [facility] Comment on above: Performed By: #### Bryan Ashton PHOS, CMP #### [facility] [address] [place] [address] Dr. Kerrie Russell Potassium [Moles/Vol] 3.3 mmol/L Critically low 3.5-5.1 [facility] Comment on above: Performed By: #### M Daisha PHOS, CMP #### [facility] [address] [place] [address] Dr. Kerrie Russell Protein [Mass/Vol] 7.5 g/dL Normal 6.4-8.2 [facility] Comment on above: Performed By: #### M G PHOS, CMP #### [facility] [address] [place] [address] Dr. Kerrie Russell Sodium [Moles/Vol] 140 mmol/L Normal 136-145 [facility] Comment on above: Performed By: #### M G PHOS, CMP #### [facility] [address] [place] [address] Dr. Kerrie Russell Urea nitrogen [Mass/Vol] 9.0 mg/dL Normal 7.0-18.0 [facility] Comment on above: Performed By: #### M Daisha PHOS, CMP #### [facility] [address] [place] [address] Dr. Kerrie Rsusell Urea nitrogen/Creatinine [Mass ratio] 13.8 mg/mg Normal [facility] Comment on above: Performed By: #### M Daisha PHOS, CMP #### [facility] [address] [place] [address] Dr. Kerrie Russell VIT B12 AND FOLATEon 022 Cobalamin (Vitamin B12) [Mass/Vol] 538.0 pg/mL Normal 193.0-986.0 [facility] Comment on above: Performed By: #### P HOS, MG, CMP #### [facility] [address] [place] [address] Dr. Kerrie Russell FOLATE 8.50 ng/mL Critically low 8.60-58.90 [facility] Comment on above: Performed By: #### P HOS, MG, CMP #### [facility] [address] [address] [address] Kerrie Russell VITAMIN D 25 OHon 02-28-2022 VIT D 25-OH 33.0 ng/mL Normal [facility] Comment on above: Performed By: #### P HOS, MG, CMP #### [facility] [address] [address] [address] Kerrie Russell VIT D RANGES SEE BELOW Normal [facility] Comment on above: Result Comment: <20 ng/mL Vit D deficient 20 - <30 ng/mL Vit D insufficient 30 - 100 ng/mL Vit D sufficient >100 ng/mL Potential Toxicity Performed By: #### P HOS, MG, CMP #### [facility] [address] [address] [address] Kerrie Russell Covid-19 PCR (CVDTBH)on SARS-CoV-2 (COVID-19) RNA DEZ+probe Ql (Unsp spec) Not detected Normal NOT DETECTED [facility] Comment on above: Result Comment: This test is not yet approved or cleared by the [place] FDA. When there are no FDA-approved or cleared tests available, and other criteria are met, FDA can make tests available under an emergency access mechanism called an Emergency Use Authorization (EUA). The EUA for this test is supported by the [employer] of Health and Human Service's (HHS's) declaration [...] SARS-CoV-2. Performed By: #### C VDTBH #### [facility] [address] [place] [address] Dr. Kerrie Russell Covid-19 PCR (CVDTBH)on SARS-CoV-2 (COVID-19) RNA DEZ+probe Ql (Unsp spec) Not detected Normal NOT DETECTED [facility] Comment on above: Result Comment: This test is not yet approved or cleared by the [place] FDA. When there are no FDA-approved or cleared tests available, and other criteria are met, FDA can make tests available under an emergency access mechanism called an Emergency Use Authorization (EUA). The EUA for this test is supported by the [employer] of Health and Human Service's (HHS's) declaration [...] By: #### P HOS, MG, CMP #### [facility] [address] [place] [address] Dr. Kerrie Rsusell VITAMIN B1 (THIAMINE)on 07-29 Vit. B1, Whole Blood 118.6 nmol/L Normal 66.5-200.0 [facility] Comment on above: Performed By: #### C VDTBH #### [facility] [address] [place] [address] Dr. Kerrie Russell CBC AUTO DIFFon 08-11-2021 BASO # 0.0 103/ul Normal 0.0-0.1 [facility] Comment on above: Performed By: #### P HOS, MG, CMP #### [facility] [address] [address] [address] Kerrie Russell Basophils/100 WBC (Bld) 0.3 % Normal 0.2-2.0 [facility] Comment on above: Performed By: #### P HOS, MG, CMP #### [facility] [address] [place] [address] Dr. Kerrie Russell EO # 0.1 103/ul Normal 0.0-0.7 [facility] Comment on above: Performed By: #### P HOS, MG, CMP #### [facility] [address] [place] [address] Dr. Kerrie Russell Eosinophils/100 WBC (Bld) 1.5 % Normal 0.9-7.0 [facility] Comment on above: Performed By: #### P HOS, MG, CMP #### [facility] [address] [place] [address] Dr. Kerrie Russell Erythrocyte distribution width (RBC) [Ratio] 15.9 % Critically high 11.0-15.0 [facility] Comment on above: Performed By: #### P HOS, MG, CMP #### [facility] [address] [place] [address] Dr. Kerrie Russell Hematocrit (Bld) [Volume fraction] 34.2 % Critically low 36.0-48.0 [facility] Comment on above: Performed By: #### P HOS, MG, CMP #### [facility] [address] [place] [address] Dr. Kerrie Russell Hemoglobin (Bld) [Mass/Vol] 10.1 g/dL Critically low 12.0-16.0 [facility] Comment on above: Performed By: #### P HOS, MG, CMP #### [facility] [address] [place] [address] Dr. Kerrie Russell IG # 0.03 10e3/ul Normal 0.00-0.03 [facility] Comment on above: Performed By: #### P HOS, MG, CMP #### [facility] [address] [place] [address] Dr. Kerrie Russell IG % 0.3 % Normal 0.0-0.5 [facility] Comment on above: Performed By: #### P HOS, MG, CMP #### [facility] [address] [place] [address] Dr. Kerrie Russell LYMPH # 3.3 103/ul Normal 1.2-3.8 [facility] Comment on above: Performed By: #### P HOS, MG, CMP #### [facility] [address] [address] [address] Kerrie Russell Lymphocytes/100 WBC (Bld) 37.2 % Normal 20.5-60.0 [facility] Comment on above: Performed By: #### P HOS, MG, CMP #### [facility] [address] [place] [address] Dr. Kerrie Russell MANUAL DIFF REQ NO Normal [facility] Comment on above: Performed By: #### P HOS, MG, CMP #### [facility] [address] [place] [address] Dr. Kerrie Russell MCH (RBC) [Entitic mass] 20.7 pg Critically low 26.7-34.0 [facility] Comment on above: Performed By: #### P HOS, MG, CMP #### [facility] [address] [place] [address] Dr. Kerrie Russell MCHC (RBC) [Mass/Vol] 29.5 g/dL Critically low 29.9-35.2 [facility] Comment on above: Performed By: #### P HOS, MG, CMP #### [facility] [address] [place] [address] Dr. Kerrie Russell MCV (RBC) [Entitic vol] 70.1 fL Critically low 81.0-99.0 [facility] Comment on above: Performed By: #### P HOS, MG, CMP #### [facility] [address] [place] [address] Dr. Kerrie Russell MONO # 0.6 103/ul Normal 0.3-0.8 [facility] Comment on above: Performed By: #### P HOS, MG, CMP #### [facility] [address] [place] [address] Dr. Kerrie Russell Monocytes/100 WBC (Bld) 7.3 % Normal 1.7-12.0 [facility] Comment on above: Performed By: #### P HOS, MG, CMP #### [facility] [address] [place] [address] Dr. Kerrie Russell NEUT # 4.7 103/ul Normal 1.4-6.5 [facility] Comment on above: Performed By: #### P HOS, MG, CMP #### [facility] [address] [address] [address] Kerrie Russell Neutrophils/100 WBC (Bld) 53.4 % Normal 43.0-75.0 [facility] Comment on above: Performed By: #### P HOS, MG, CMP #### [facility] [address] [place] [address] Dr. Kerrie Russell Platelet mean volume (Bld) [Entitic vol] 9.1 fL Critically low 9.5-13.5 [facility] Comment on above: Performed By: #### P HOS, MG, CMP #### [facility] [address] [place] [address] Dr. Kerrie Russell PLT 339 103/ul Normal 150-450 [facility] Comment on above: Performed By: #### P HOS, MG, CMP #### [facility] [address] [place] [address] Dr. Kerrie Russell RBC 4.88 106/ul Normal 4.20-5.40 [facility] Comment on above: Performed By: #### P HOS, MG, CMP #### [facility] [address] [place] [address] Dr. Kerrie Russell WBC 8.8 103/ul Normal 4.0-11.0 [facility] Comment on above: Performed By: #### P HOS, MG, CMP #### [facility] [address] [place] [address] Dr. Kerrie Russell FERRITINon 08-11-2021 Ferritin [Mass/Vol] 4.0 ng/mL Critically low 6.2-137.0 [facility] Comment on above: Performed By: #### C VDTBH #### [facility] [address] [place] [address] Dr. Kerrie Russell IRON AND TIBCon 08-11-2021 % SATURATION 3.7 % Normal [facility] Comment on above: Performed By: #### C VDTBH #### [facility] [address] [place] [address] Dr. Kerrie Russell Iron [Mass/Vol] 19.0 ug/dL Critically low 37.0-170.0 [facility] Comment on above: Performed By: #### C VDTBH #### [facility] [address] [place] [address] Dr. Kerrie Russell TIBC DIRECT 513.0 ug/dL Critically high 261.0-497.0 [facility] Comment on above: Performed By: #### C VDTBH #### [facility] [address] [place] [address] Dr. Kerrie Russell MAGNESIUMon 08-11-2021 Magnesium [Mass/Vol] 2.0 mg/dL Normal 1.6-2.3 [facility] Comment on above: Performed By: #### P HOS, MG, CMP #### [facility] [address] [place] [address] Dr. Kerrie Russell PHOSPHORUSon 08-11-2021 Phosphate [Mass/Vol] 4.8 mg/dL Critically high 2.5-4.5 [facility] Comment on above: Performed By: #### P HOS, MG, CMP #### [facility] [address] [place] [address] Dr. Kerrie Russell PROF 14(COMP METB)on 022 Albumin [Mass/Vol] 3.8 g/dL Normal 3.4-5.0 [facility] Comment on above: Performed By: #### P HOS, MG, CMP #### [facility] [address] [place] [address] Dr. Kerrie Russell Albumin/Globulin [Mass ratio] 0.9 {ratio} Normal [facility] Comment on above: Performed By: #### P HOS, MG, CMP #### [facility] [address] [place] [address] Dr. Kerrie Russell ALP [Catalytic activity/Vol] 74 U/L Normal 46-116 [facility] Comment on above: Performed By: #### P HOS, MG, CMP #### [facility] [address] [place] [address] Dr. Kerrie Russell ALT [Catalytic activity/Vol] 15 U/L Normal 14-59 [facility] Comment on above: Performed By: #### P HOS, MG, CMP #### [facility] [address] [address] [address] Kerrie Russell Anion gap [Moles/Vol] 13.3 mmol/L Normal [facility] Comment on above: Performed By: #### P HOS, MG, CMP #### [facility] [address] [place] [address] Dr. Kerrie Russell AST [Catalytic activity/Vol] 11 U/L Critically low 15-37 [facility] Comment on above: Performed By: #### P HOS, MG, CMP #### [facility] [address] [place] [address] Dr. Kerrie Russell Bilirubin [Mass/Vol] 0.2 mg/dL Normal 0.2-1.3 [facility] Comment on above: Performed By: #### P HOS, MG, CMP #### [facility] [address] [place] [address] Dr. Kerrie Russell Calcium [Mass/Vol] 8.3 mg/dL Critically low 8.5-10.1 [facility] Comment on above: Performed By: #### P HOS, MG, CMP #### [facility] [address] [place] [address] Dr. Kerrie Russell Chloride [Moles/Vol] 104 mmol/L Normal 98-107 [facility] Comment on above: Performed By: #### P HOS, MG, CMP #### [facility] [address] [place] [address] Dr. Kerrie Russell CO2 [Moles/Vol] 26.5 mmol/L Normal 22.0-30.0 [facility] Comment on above: Performed By: #### P HOS, MG, CMP #### [facility] [address] [place] [address] Dr. Kerrie Russell Creatinine [Mass/Vol] 0.60 mg/dL Normal 0.52-1.04 [facility] Comment on above: Performed By: #### P HOS, MG, CMP #### [facility] [address] [place] [address] Dr. Kerrie Russell EGFR-AF TAIWANESE >60 Normal >=60 [facility] Comment on above: Performed By: #### P HOS, MG, CMP #### [facility] [address] [place] [address] Dr. Kerrie Russell EGFR-NON AF TAIWANESE >60 Normal >=60 [facility] Comment on above: Performed By: #### P HOS, MG, CMP #### [facility] [address] [place] [address] Dr. Kerrie Russell Globulin (S) [Mass/Vol] 4.1 g/dL Normal [facility] Comment on above: Performed By: #### P HOS, MG, CMP #### [facility] [address] [place] [address] Dr. Kerrie Russell Glucose [Mass/Vol] 93 mg/dL Normal 74-106 [facility] Comment on above: Performed By: #### P HOS, MG, CMP #### [facility] [address] [place] [address] Dr. Kerrie Russell Potassium [Moles/Vol] 3.8 mmol/L Normal 3.4-5.0 [facility] Comment on above: Performed By: #### P HOS, MG, CMP #### [facility] [address] [place] [address] Dr. Kerrie Russell Protein [Mass/Vol] 7.9 g/dL Normal 6.1-8.2 [facility] Comment on above: Performed By: #### P HOS, MG, CMP #### [facility] [address] [place] [address] Dr. Kerrie Russell Sodium [Moles/Vol] 140 mmol/L Normal 137-145 [facility] Comment on above: Performed By: #### P HOS, MG, CMP #### [facility] [address] [place] [address] Dr. Kerrie Russell Urea nitrogen [Mass/Vol] 14.0 mg/dL Normal 7.0-18.0 [facility] Comment on above: Performed By: #### P HOS, MG, CMP #### [facility] [address] [place] [address] Dr. Kerrie Russell Urea nitrogen/Creatinine [Mass ratio] 23.3 mg/mg Normal [facility] Comment on above: Performed By: #### P HOS, MG, CMP #### [facility] [address] [place] [address] Dr. Kerrie Russell VIT B12 AND FOLATEon 022 Cobalamin (Vitamin B12) [Mass/Vol] 546.0 pg/mL Normal 239.0-931.0 [facility] Comment on above: Performed By: #### C VDTBH #### [facility] [address] [place] [address] Dr. Kerrie Russell FOLATE 17.80 ng/mL Normal >=2.76 [facility] Comment on above: Performed By: #### C VDTBH #### [facility] [address] [place] [address] Dr. Kerrie Russell VITAMIN D 25 OHon 08-11-2021 VIT D 25-OH 35.1 ng/mL Normal [facility] Comment on above: Performed By: #### C VDTBH #### [facility] [address] [place] [address] Dr. Kerrie Russell VIT D RANGES SEE BELOW Normal [facility] Comment on above: Result Comment: <20 ng/mL Vit D deficient 20 - <30 ng/mL Vit D insufficient 30 - 100 ng/mL Vit D sufficient >100 ng/mL Potential Toxicity Performed By: #### C VDTBH #### [facility] [address] [place] [address] Dr. Kerrie Russell XR KUB 1 VIEWon [...] MELLISSA SEGAL Date: 2021-08-11 09:44 Normal [facility] Complete Blood Count with Au to Diffon 07-12-2021 Basophils (Bld) [#/Vol] 0.01 10*3/uL Normal 0.00-0.20 [facility] Comment on above: Performed By: #### F ERR, CBCAD, FE Prof, smear, CMP #### [facility] [address], [place] [id number] Basophils/100 WBC (Bld) 0.2 % Normal [facility] Comment on above: Performed By: #### F ERR, CBCAD, FE Prof, smear, CMP #### [facility] [address], [place] [id number] Eosinophils (Bld) [#/Vol] 0.14 10*3/uL Normal 0.02-0.50 [facility] Comment on above: Performed By: #### F ERR, CBCAD, FE Prof, smear, CMP #### [facility] [address], [place] [id number] Eosinophils/100 WBC (Bld) 2.8 % Normal [facility] Comment on above: Performed By: #### F ERR, CBCAD, FE Prof, smear, CMP #### [facility] [address], [place] [id number] Erythrocyte distribution width (RBC) [Ratio] 17.0 % High 11.0-15.0 [facility] Comment on above: Performed By: #### F ERR, CBCAD, FE Prof, smear, CMP #### [facility] [address], [place] [id number] Hematocrit (Bld) [Volume fraction] 34.8 % Low 35.0-47.0 [facility] Comment on above: Performed By: #### F ERR, CBCAD, FE Prof, smear, CMP #### [facility] [address], [place] [id number] Hemoglobin (Bld) [Mass/Vol] 9.8 g/dL Low 11.6-15.5 [facility] Comment on above: Performed By: #### F ERR, CBCAD, FE Prof, smear, CMP #### [facility] [address], [place] [id number] Lymphocytes (Bld) [#/Vol] 2.1 10*3/uL Normal 0.9-3.9 [facility] Comment on above: Performed By: #### F ERR, CBCAD, FE Prof, smear, CMP #### [facility] [address], [place] [id number] Lymphocytes/100 WBC (Bld) 42.3 % Normal [facility] Comment on above: Performed By: #### F ERR, CBCAD, FE Prof, smear, CMP #### [facility] [address], [place] [id number] MCH (RBC) [Entitic mass] 20.3 pg Low 27.0-33.0 [facility] Special[facility] Comment on above: Performed By: #### F ERR, CBCAD, FE Prof, smear, CMP #### [facility] [address], [place] [id number] MCHC (RBC) [Mass/Vol] 28.2 g/dL Low 32.0-36.0 [facility] Comment on above: Performed By: #### F ERR, CBCAD, FE Prof, smear, CMP #### [facility] [address], [place] [id number] MCV (RBC) [Entitic vol] 72 fL Low 80-100 [facility] Comment on above: Performed By: #### F ERR, CBCAD, FE Prof, smear, CMP #### [facility] [address], [place] [id number] Monocytes (Bld) [#/Vol] 0.6 10*3/uL Normal 0.2-0.9 [facility] Comment on above: Performed By: #### F ERR, CBCAD, FE Prof, smear, CMP #### [facility] [address], [place] [id number] Monocytes/100 WBC (Bld) 11.4 % Normal [facility] Special[facility] Comment on above: Performed By: #### F ERR, CBCAD, FE Prof, smear, CMP #### [facility] [address], [place] [id number] Neutrophils (Bld) [#/Vol] 2.1 10*3/uL Normal 1.5-7.8 [facility] Comment on above: Performed By: #### F ERR, CBCAD, FE Prof, smear, CMP #### [facility] [address], [place] [id number] Neutrophils/100 WBC (Bld) 42.9 % Normal [facility] Comment on above: Performed By: #### F ERR, CBCAD, FE Prof, smear, CMP #### [facility] [address], [place] [id number] Platelet mean volume (Bld) [Entitic vol] 10.10 fL Normal 7.50-12.50 [facility] Comment on above: Performed By: #### F ERR, CBCAD, FE Prof, smear, CMP #### [facility] [address], [place] [id number] Platelets (Bld) [#/Vol] 368 10*3/uL Normal 140-400 [facility] Comment on above: Performed By: #### F ERR, CBCAD, FE Prof, smear, CMP #### [facility] [address], [place] [id number] RBC (Bld) [#/Vol] 4.82 10*6/uL Normal 3.90-5.20 [facility] Comment on above: Performed By: #### F ERR, CBCAD, FE Prof, smear, CMP #### [facility] [address], [place] [id number] RDW-SD 43.4 fL Normal 37.0-50.0 [facility] Comment on above: Performed By: #### F ERR, CBCAD, FE Prof, smear, CMP #### [facility] [address], [place] [id number] REFLEX Smear Review Normal [facility] Comment on above: Performed By: #### F ERR, CBCAD, FE Prof, smear, CMP #### [facility] [address], [place] [id number] WBC (Bld) [#/Vol] 4.9 10*3/uL Normal 3.8-11.0 [facility] Comment on above: Performed By: #### F ERR, CBCAD, FE Prof, smear, CMP #### [facility] [address] [facility] [place] [id number] Comprehensive Metabolic Pane dayo 07-12-2021 Albumin [Mass/Vol] 4.5 g/dL Normal 3.6-5.1 [facility] Comment on above: Performed By: #### F ERR, CBCAD, FE Prof, smear, CMP #### [facility] [address] [facility] [place] [place] [id number] Albumin/Globulin [Mass ratio] 1.7 {ratio} Normal 1.0-2.5 [facility] Specialist Comment on above: Performed By: #### F ERR, CBCAD, FE Prof, smear, CMP #### [facility] [address], [place] [id number] ALP [Catalytic activity/Vol] 80 U/L Normal 35-119 [facility] Special[facility] Comment on above: Performed By: #### F ERR, CBCAD, FE Prof, smear, CMP #### [facility] [address] [facility] [place] [place] [id number] ALT [Catalytic activity/Vol] 12 U/L Normal 6-33 [facility] Comment on above: Result Comment: 03/29 Female reference range changed. Performed By: #### F ERR, CBCAD, FE Prof, smear, CMP #### [facility] [address] [facility] [place] [id number] Anion gap [Moles/Vol] 18 mmol/L Normal 12-20 [facility] Comment on above: Result Comment: Effe ctive 05/04/2019 reference range changed. Performed By: #### F ERR, CBCAD, FE Prof, smear, CMP #### [facility] [address] [facility] [place] [id number] AST [Catalytic activity/Vol] 20 U/L Normal 9-34 [facility] Specialist Comment on above: Performed By: #### F ERR, CBCAD, FE Prof, smear, CMP #### [facility] [address] [facility] [place] [id number] BUN/CREA 19 Ratio Normal 6-22 [facility] Specialist Comment on above: Performed By: #### F ERR, CBCAD, FE Prof, smear, CMP #### [facility] [address] [place], [place] [id number] Calcium [Mass/Vol] 8.8 mg/dL Normal 8.6-10.2 [facility] Specialist Comment on above: Performed By: #### F ERR, CBCAD, FE Prof, smear, CMP #### [facility] [address] [place], [place] [id number] Chloride [Moles/Vol] 104 mmol/L Normal 98-107 [facility] Comment on above: Performed By: #### F ERR, CBCAD, FE Prof, smear, CMP #### [facility] [address] [place], [place] [id number] CO2 [Moles/Vol] 22 mmol/L Normal 20-31 [facility] Comment on above: Performed By: #### F ERR, CBCAD, FE Prof, smear, CMP #### [facility] [address] [place], [place] [id number] Creatinine [Mass/Vol] 0.6 mg/dL Normal 0.6-1.4 [facility] Comment on above: Performed By: #### F ERR, CBCAD, FE Prof, smear, CMP #### [facility] [address] [place], [place] [id number] eGFRAA 155 mL/min/1.73m2 Normal >60 [facility] Comment on above: Performed By: #### F ERR, CBCAD, FE Prof, smear, CMP #### [facility] [address] [place], [place] [id number] eGFRNAA 128 mL/min/1.73m2 Normal >60 [facility] Specialist Comment on above: Performed By: #### F ERR, CBCAD, FE Prof, smear, CMP #### [facility] [address] [place], [place] [id number] Globulin (S) [Mass/Vol] 2.6 g/dL Normal 1.9-3.7 [facility] Specialist Comment on above: Performed By: #### F ERR, CBCAD, FE Prof, smear, CMP #### [facility] [address] [place], [place] [id number] Glucose [Mass/Vol] 80 mg/dL Normal 65-99 [facility] [place] [facility] Comment on above: Result Comment: For FASTING Glucose --- ADA reference ranges: Normal 65-99 mg/dl Prediabetes 100-125 Diabetes >/= 126 Performed By: #### F ERR, CBCAD, FE Prof, smear, CMP #### [facility] [address] [place], [place] [id number] Potassium [Moles/Vol] 4.2 mmol/L Normal 3.5-5.5 [facility] Comment on above: Performed By: #### F ERR, CBCAD, FE Prof, smear, CMP #### [facility] [address] [place], [place] [id number] Protein [Mass/Vol] 7.1 g/dL Normal 6.1-8.1 [facility] [place] [facility] Comment on above: Performed By: #### F ERR, CBCAD, FE Prof, smear, CMP #### [facility] [address] [place], [place] [id number] Sodium [Moles/Vol] 139 mmol/L Normal 135-146 [facility] [place] [facility] Comment on above: Performed By: #### F ERR, CBCAD, FE Prof, smear, CMP #### [facility] [address] [place], [place] [id number] TBIL <0.3 Normal [facility] Phys[facility] Assistant Certified Comment on above: Performed By: #### F ERR, CBCAD, FE Prof, smear, CMP #### [facility] [address] [place], [place] [id number] Urea nitrogen [Mass/Vol] 11 mg/dL Normal 7-25 [facility] Phys[facility] Assistant Certified Comment on above: Performed By: #### F ERR, CBCAD, FE Prof, smear, CMP #### [facility] [address] [place], [place] [id number] Ferritinon 07-12-2021 FERR 12.1 ng/mL Low 15.0-150.0 [facility] Phys[facility] Assistant Certified Comment on above: Performed By: #### F ERR, CBCAD, FE Prof, smear, CMP #### [facility] [address] [place], [place] [id number] Iron Profileon 07-12-2021 %FESAT 6 % Low 11-50 [facility] Specialist Comment on above: Performed By: #### F ERR, CBCAD, FE Prof, smear, CMP #### [facility] [address] [place], [place] [id number] FE 25 ug/dL Low 40-190 [facility] Specialist Comment on above: Result Comment: Refe rence range change 03/15/2017. Prior reference range F 37-145 ug/dL, M 59-158 ug/dL. Performed By: #### F ERR, CBCAD, FE Prof, smear, CMP #### [facility] [address] [place], [place] [id number] TIBC 441 ug/dL Normal 250-450 [facility] Comment on above: Performed By: #### F ERR, CBCAD, FE Prof, smear, CMP #### [facility] [address] [place], [place] [id number] UIBC 416 ug/dL High 112-347 [facility] Comment on above: Performed By: #### F ERR, CBCAD, FE Prof, smear, CMP #### [facility] [address] [place], [place] [id number] Smear Reviewon 07-12-2021 PLT EST Adequate Normal [facility] Comment on above: Performed By: #### F ERR, CBCAD, FE Prof, smear, CMP #### [facility] [address] [place], [place] [id number] RBC morphology finding Nom (Bld) RBC morphology review confirms RBC indices Normal [facility] Comment on above: Performed By: #### F ERR, CBCAD, FE Prof, smear, CMP #### [facility] [address] [place], [place] [id number] CBC AUTO DIFFon 05-13-2021 BASO # 0.0 103/ul Normal 0.0-0.1 [facility] Comment on above: Performed By: #### C BC #### [facility] [address] [place], [place] [address] Dr. Kerrie Russell Basophils/100 WBC (Bld) 0.1 % Critically low 0.2-2.0 [facility] Comment on above: Performed By: #### C BC #### [facility] [address] [place] [address] [address] Kerrie Russell EO # 0.0 103/ul Normal 0.0-0.7 [facility] Comment on above: Performed By: #### C BC #### [facility] [address] [address] [address] Kerrie Russell Eosinophils/100 WBC (Bld) 0.0 % Critically low 0.9-7.0 [facility] Comment on above: Performed By: #### C BC #### [facility] [address] [place] [address] Dr. Kerrie Russell Erythrocyte distribution width (RBC) [Ratio] 15.0 % Normal 11.0-15.0 [facility] Comment on above: Performed By: #### C BC #### [facility] [address] [place] [address] Dr. Kerrie Russell Hematocrit (Bld) [Volume fraction] 25.2 % Critically low 36.0-48.0 [facility] Comment on above: Performed By: #### C BC #### [facility] [address] [place] [address] Dr. Kerrie Russell Hemoglobin (Bld) [Mass/Vol] 7.6 g/dL Critically low 12.0-16.0 [facility] Comment on above: Result Comment: Post delivery Performed By: #### C BC #### [facility] [address] [place] [address] Dr. Kerrie Russell IG # 0.08 10e3/ul Critically high 0.00-0.03 [facility] Comment on above: Performed By: #### C BC #### [facility] [address] [place] [address] Dr. Kerrie Russell IG % 1.0 % Critically high 0.0-0.[address] [facility] Comment on above: Performed By: #### C BC #### [facility] [address] [place] [address] Dr. Kerrie Russell LYMPH # 2.2 103/ul Normal 1.2-3.8 [facility] Comment on above: Performed By: #### C BC #### [facility] [address] [place] [address] Dr. Kerrie Russell Lymphocytes/100 WBC (Bld) 26.5 % Normal 20.5-60.0 [facility] Comment on above: Performed By: #### C BC #### [facility] [address] [place] [address] Dr. Kerrie Russell MANUAL DIFF REQ NO Normal [facility] Comment on above: Performed By: #### C BC #### [facility] [address] [place] [address] Dr. Kerrie Russell MCH (RBC) [Entitic mass] 21.7 pg Critically low 26.7-34.0 [facility] Comment on above: Performed By: #### C BC #### [facility] [address] [place] [address] Dr. Kerrie Russell MCHC (RBC) [Mass/Vol] 30.2 g/dL Normal 29.9-35.2 [facility] Comment on above: Performed By: #### C BC #### [facility] [address] [place] [address] Dr. Kerrie Russell MCV (RBC) [Entitic vol] 72.0 fL Critically low 81.0-99.0 [facility] Comment on above: Performed By: #### C BC #### [facility] [address] [place] [address] Dr. Kerrie Russell MONO # 0.7 103/ul Normal 0.3-0.8 [facility] Comment on above: Performed By: #### C BC #### [facility] [address] [place] [address] Dr. Kerrie Russell Monocytes/100 WBC (Bld) 9.1 % Normal 1.7-12.0 [facility] Comment on above: Performed By: #### C BC #### [facility] [address] [place] [address] Dr. Kerrie Russell NEUT # 5.1 103/ul Normal 1.4-6.5 [facility] Comment on above: Performed By: #### C BC #### [facility] [address] [place] [address] Dr. Kerrie Russell Neutrophils/100 WBC (Bld) 63.3 % Normal 43.0-75.0 [facility] Comment on above: Performed By: #### C BC #### [facility] [address] [place] [address] [address] Kerrie Russell Platelet mean volume (Bld) [Entitic vol] 10.1 fL Normal 9.5-13.5 [facility] Comment on above: Performed By: #### C BC #### [facility] [address] [place] [address] Dr. Kerrie Russell PLT 181 103/ul Normal 150-450 [facility] Comment on above: Performed By: #### C BC #### [facility] [address] [place] [address] Dr. Kerrie Russell RBC 3.50 106/ul Critically low 4.20-5.40 [facility] Comment on above: Performed By: #### C BC #### [facility] [address] [place] [address] Dr. Kerrie Russell WBC 8.1 103/ul Normal 4.0-11.0 [facility] Comment on above: Performed By: #### C BC #### [facility] [address] [place] [address] Dr. Kerrie Russell CBC AUTO DIFFon 05-11-2021 BASO # 0.0 103/ul Normal 0.0-0.1 [facility] Comment on above: Performed By: #### C VDTBH #### [facility] [address] [place] [address] Dr. Kerrie Russell Basophils/100 WBC (Bld) 0.4 % Normal 0.2-2.0 [facility] Comment on above: Performed By: #### C VDTBH #### [facility] [address] [place] [address] Dr. Kerrie Russell EO # 0.0 103/ul Normal 0.0-0.7 [facility] Comment on above: Performed By: #### C VDTBH #### [facility] [address] [place] [address] [address] Kerrie Russell Eosinophils/100 WBC (Bld) 0.3 % Critically low 0.9-7.0 [facility] Comment on above: Performed By: #### C VDTBH #### [facility] [address] [place] [address] Dr. Kerrie Russell Erythrocyte distribution width (RBC) [Ratio] 14.8 % Normal 11.0-15.0 [facility] Comment on above: Performed By: #### C VDTBH #### [facility] [address] [place] [address] Dr. Kerrie Russell Hematocrit (Bld) [Volume fraction] 31.2 % Critically low 36.0-48.0 [facility] Comment on above: Performed By: #### C VDTBH #### [facility] [address] [place] [address] Dr. Kerrie Russell Hemoglobin (Bld) [Mass/Vol] 9.6 g/dL Critically low 12.0-16.0 [facility] Comment on above: Performed By: #### C VDTBH #### [facility] [address] [place] [address] Dr. Kerrie Russell IG # 0.07 10e3/ul Critically high 0.00-0.03 [facility] Comment on above: Performed By: #### C VDTBH #### [facility] [address] [place] [address] Dr. Kerrie Russell IG % 1.0 % Critically high 0.0-0.[address] [facility] Comment on above: Performed By: #### C VDTBH #### [facility] [address] [place] [address] Dr. Kerrie Russell LYMPH # 1.5 103/ul Normal 1.2-3.8 [facility] Comment on above: Performed By: #### C VDTBH #### [facility] [address] [place] [address] Dr. Kerrie Russell Lymphocytes/100 WBC (Bld) 21.7 % Normal 20.5-60.0 [facility] Comment on above: Performed By: #### C VDTBH #### [facility] [address] [place] [address] Dr. Kerrie Russell MANUAL DIFF REQ NO Normal [facility] Comment on above: Performed By: #### C VDTBH #### [facility] [address] [place] [address] Dr. Kerrie Russell MCH (RBC) [Entitic mass] 21.8 pg Critically low 26.7-34.0 [facility] Comment on above: Performed By: #### C VDTBH #### [facility] [address] [place] [address] Dr. Kerrie Russell MCHC (RBC) [Mass/Vol] 30.8 g/dL Normal 29.9-35.2 [facility] Comment on above: Performed By: #### C VDTBH #### [facility] [address] [place] [address] Dr. Kerrie Russell MCV (RBC) [Entitic vol] 70.7 fL Critically low 81.0-99.0 [facility] Comment on above: Performed By: #### C VDTBH #### [facility] [address] [place] [address] Dr. Kerrie Russell MONO # 0.7 103/ul Normal 0.3-0.8 [facility] Comment on above: Performed By: #### C VDTBH #### [facility] [address] [place] [address] Dr. Kerrie Russell Monocytes/100 WBC (Bld) 9.7 % Normal 1.7-12.0 [facility] Comment on above: Performed By: #### C VDTBH #### [facility] [address] [place] [address] Dr. Kerrie Russell NEUT # 4.7 103/ul Normal 1.4-6.5 [facility] Comment on above: Performed By: #### C VDTBH #### [facility] [address] [place] [address] Dr. Kerrie Russell Neutrophils/100 WBC (Bld) 66.9 % Normal 43.0-75.0 [facility] Comment on above: Performed By: #### C VDTBH #### [facility] [address] [place] [address] [address] Kerrie Russell Platelet mean volume (Bld) [Entitic vol] 10.0 fL Normal 9.5-13.5 [facility] Comment on above: Performed By: #### C VDTBH #### [facility] [address] [place] [address] Dr. Kerrie Russell PLT 272 103/ul Normal 150-450 [facility] Comment on above: Performed By: #### C VDTBH #### [facility] [address] [place] [address] [address] Kerrie Russell RBC 4.41 106/ul Normal 4.20-5.40 [facility] Comment on above: Performed By: #### C VDTBH #### [facility] [address] [place] [address] Dr. Kerrie Russell WBC 7.0 103/ul Normal 4.0-11.0 [facility] Comment on above: Performed By: #### C VDTBH #### [facility] [address] [place] [address] Dr. Kerrie Russell Covid-19 PCR ([facility]on 04-29 SARS-CoV-2 (COVID-19) RNA DEZ+probe Ql (Unsp spec) Detected Critically abnormal NOT DETECTED [facility] Comment on above: Result Comment: This test is not yet approved or cleared by the [place] FDA. When there are no FDA-approved or cleared tests available, and other criteria are met, FDA can make tests available under an emergency access mechanism called an Emergency Use Authorization (EUA). The EUA for this test is supported by the [employer] of Health and Human Service's declaration that [...] used). Performed By: #### C VDTBH #### [facility] [address] [place] [address] Dr. Kerrie Russell DRUG SCREEN RAPID (URINE)on 05-11-2021 AMP Negative Normal NEGATIVE [facility] Comment on above: Performed By: #### C VDTBH #### [facility] [address] [place] [address] Dr. Kerrie Russell BAR Negative Normal NEGATIVE [facility] Comment on above: Performed By: #### C VDTBH #### [facility] [address] [place] [address] Dr. Kerrie Russell BUP Negative Normal NEGATIVE [facility] Comment on above: Performed By: #### C VDTBH #### [facility] [address] [place] [address] Dr. Kerrie Russell BZO Negative Normal NEGATIVE [facility] Comment on above: Performed By: #### C VDTBH #### [facility] [address] [place] [address] Dr. Kerrie Russell ESTRELLA Negative Normal NEGATIVE [facility] Comment on above: Performed By: #### C VDTBH #### [facility] [address] [place] [address] Dr. Kerrie Russell CUT-OFFS SEE BELOW Normal [facility] Comment on above: Result Comment: AMP [...] ng/mL Performed By: #### C VDTBH #### [facility] [address] [place] [address] Dr. Kerrie Russell DRUG CUT HEADER DRUG CLASS TEST SYSTEM CUT-OFF CONCENTRATIONS ARE FOLLOWS: Normal [facility] Comment on above: Performed By: #### C VDTBH #### [facility] [address] [place] [address] Dr. Kerrie Russell mAMP Negative Normal NEGATIVE [facility] Comment on above: Performed By: #### C VDTBH #### [facility] [address] [place] [address] Dr. Kerrie Russell MTD Negative Normal NEGATIVE [facility] Comment on above: Performed By: #### C VDTBH #### [facility] [address] [place] [address] Dr. Kerrie Russell OPI Negative Normal NEGATIVE [facility] Comment on above: Performed By: #### C VDTBH #### [facility] [address] [place] [address] Dr. Kerrie Russell OXY Negative Normal NEGATIVE [facility] Comment on above: Performed By: #### C VDTBH #### [facility] [address] [place] [address] Dr. Kerrie Russell PCP Negative Normal NEGATIVE [facility] Comment on above: Performed By: #### C VDTBH #### [facility] [address] [place] [address] Dr. Kerrie Russell PPX Negative Normal NEGATIVE [facility] Comment on above: Performed By: #### C VDTBH #### [facility] [address] [place] [address] Dr. Kerrie Russell TCA Negative Normal NEGATIVE [facility] Comment on above: Performed By: #### C VDTBH #### [facility] [address] [place] [address] Dr. Kerrie Russell THC Negative Normal NEGATIVE [facility] Comment on above: Performed By: #### C VDTBH #### [facility] [address] [place] [address] Dr. Kerrie Russell TYPE AND SCREENon 05-11-2021 TYPE AND SCREEN Negative Normal [facility] Comment on above: Performed By: #### P HOS, MG, CMP #### [facility] [address] [place] [address] Dr. Kerrie Russell Vitamin B1 (Thiamine) Whl Bl ood LCon 10-05-2018 Vit B1 l Bld LC 154.0 nmol/L 66.5-200.0 [facility] Comment on above: Result Comment: This test was developed and its performance characteristics determined by [facility]. It has not been cleared or approved by the Food and Drug Administration. 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 ADMIT DX: [...] Jordyn Martinez Date Saved: 10/02/2018 03:39 pm [facility] .Auto Diff 1on 10-01-2018 Auto Baso % 0.3 % Normal 0.2-2.0 [facility] Comment on above: Performed By: #### 9 [id number], [id number], 3845236, [id number], 4923285, 994577202, 5666039, 4827323, 6270030, 2860184 #### [facility] (DEFAULT) [address] [place] [address] Auto [place] % 6 % Normal 1-12 [facility] Comment on above: Performed By: #### 9 127423, [id number], 7515640, [id number], 7099303, 462553614, 4979969, 6250680, 7526214, 5035101 #### [facility] (DEFAULT) [address] [place] [address] Auto Neut % 60 % Normal 44-88 [facility] Comment on above: Performed By: #### 9 219361, 89893582, 6208159, [id number], 5619019, 158887728, 4811798, 5840420, 6943455, 0119286 #### [facility] (DEFAULT) [address] [place] [address] Baso Abs# 0.0 x10 Normal 0.0-0.2 [facility] Comment on above: Performed By: #### 9 481034, 42209264, 6954756, [id number], 5561763, 347417441, 4373304, 0974494, 2921678, 3452598 #### [facility] (DEFAULT) [address] [place] [address] Eos Abs# 0.1 x10 Normal 0.0-0.4 [facility] Comment on above: Performed By: #### 9 200764, 26457893, 2051952, [id number], 3429699, 549734490, 3658248, 8175701, 8667494, 0347709 #### [facility] (DEFAULT) [address] [place] [address] Eosinophils/100 WBC (Bld) 0.9 % Normal 0.9-4.0 [facility] Comment on above: Performed By: #### 9 224450, 53890063, 5100173, 9691072057, 7210870, 713328016, 7626244, 9526032, 5344397, 5926309 #### [facility] (DEFAULT) [address] [place] [address] Lymphocytes #/vol (Bld) 3.4 x10 High 1.3-2.9 [facility] Comment on above: Performed By: #### 9 495669, 25336100, 2385870, [id number], 7530326, 200361194, 2299276, 2401503, 2120242, 2413996 #### [facility] (DEFAULT) [address] [place] [address] Lymphocytes/100 WBC (Bld) 33 % Normal 14-48 [facility] Comment on above: Performed By: #### 9 301765, 03565719, 8480853, [id number], 0452020, 431988783, 7925698, 6817943, 0030763, 1640148 #### [facility] (DEFAULT) [address] [place] [address] [place] Abs# 0.6 x10 Normal 0.0-0.8 [facility] Comment on above: Performed By: #### 9 824329, 39552290, 7946623, 6464352036, 6017624, 722921844, 9423855, 7800081, 9591532, 6961680 #### [facility] (DEFAULT) [address] [place] [address] Neut Abs# 6.2 x10 Normal 1.5-9.2 [facility] Comment on above: Performed By: #### 9 280266, 82055964, 1843947, 3844258740, 4497852, 225892120, 1713841, 6244193, 3343258, 5225744 #### [facility] (DEFAULT) [address] [place] [address] CBC w/ Auto Diffon 9 Erythrocyte distribution width Ratio (RBC) 14.6 % Normal 11.5-15.0 [facility] Comment on above: Performed By: #### 9 369784, 66324791, 8025967, 3744757910, 0623106, 231067937, 7109423, 3887080, 9063636, 5660900 #### [facility] (DEFAULT) [address] [place] [address] Hematocrit Volume Fraction (Bld) 41.2 % High 33.7-40.4 [facility] Comment on above: Performed By: #### 9 662580, 15339517, 6469008, [id number], 9032816, 409764120, 4467543, 8928487, 0012760, 5348934 #### [facility] (DEFAULT) [address] [place] [address] Hemoglobin mass conc (Bld) 13.7 g/dL Normal 11.3-15.9 [facility] Comment on above: Performed By: #### 9 366076, 38397617, 1544224, [id number], 3430830, 687523968, 9758755, 5809618, 3900890, 1656877 #### [facility] (DEFAULT) [address] [place] [address] Man Diff? Auto Normal [facility] Comment on above: Performed By: #### 9 171824, 21001318, 2710550, [id number], 8056902, 911440080, 2645384, 8703665, 3105402, 1177977 #### [facility] (DEFAULT) [address] [place] [address] MCH Entitic mass (RBC) 28 pg Normal 24-34 [facility] Comment on above: Performed By: #### 9 953116, 21672986, 6320086, 0928108179, 6130197, 473742927, 1839873, 2544532, 6107054, 6021148 #### [facility] (DEFAULT) [address] [place] [address] MCHC mass conc (RBC) 33 g/dL Normal 26-37 [facility] Comment on above: Performed By: #### 9 512430, 97018953, 8628899, 6273798444, 9178356, 620320543, 0370179, 4984558, 6620218, 5720821 #### [facility] (DEFAULT) [address] [place] [address] MCV Entitic volume (RBC) 85 fL Normal 81-100 [facility] Comment on above: Performed By: #### 9 908597, 24748018, 1065378, 4785907220, 6938333, 512492133, 4516273, 4252996, 8479255, 1271095 #### [facility] (DEFAULT) [address] [place] [address] Platelet mean volume Entitic volume (Bld) 9.8 fL Normal 6.3-10.2 [facility] Comment on above: Performed By: #### 9 234538, 20772516, 5529094, 8385544290, 7172674, 668504613, 9219172, 7585926, 7088914, 2641638 #### [facility] (DEFAULT) [address] [place] [address] Platelets #/vol (Bld) 378 x10 Normal 138-427 [facility] Comment on above: Performed By: #### 9 052961, 14847104, 3758253, 6701100553, 9951529, 688417365, 3086535, 6444205, 0518772, 7779699 #### [facility] (DEFAULT) [address] [place] [address] RBC #/vol (Bld) 4.84 x10 Normal 3.70-5.30 [facility] Comment on above: Performed By: #### 9 237724, 39140954, 0804974, 4691537302, 6193535, 612402105, 5079875, 2929241, 1888274, 7672728 #### [facility] (DEFAULT) [address] [place] [address] WBC #/vol (Bld) 10.4 x10 Normal 3.5-10.5 [facility] Comment on above: Performed By: #### 9 811897, 48155085, 3679500, 3803567780, 7662543, 207637422, 4101988, 3935018, 3740970, 0043117 #### [facility] (DEFAULT) [address] [place] [address] CMP Standardon 10-01-2018 eGFR Non AA >60 [facility] Comment on above: Performed By: #### 9 825249, 08488696, 1627046, 1374920656, 6714780, 241039497, 1250320, 1953366, 3590611, 0513322 #### [facility] (DEFAULT) [address] [place] [address] eGFR AA >60 [facility] Comment on above: Result Comment: Guest Relation Officer richard Kidney disease could be indicated at eGFRs of less than 60 ml/min/1.73m2. Kidney Failure is indicated at less than 15 ml/min/1.73m2 Performed By: #### 9 413504, 29497856, 6656146, 1012219870, 5220536, 085098373, 5604544, 1801078, 6788619, 0329948 #### [facility] (DEFAULT) [address] [place] [address] Albumin mass conc 4.1 g/dL Normal 3.5-5.0 [facility] Comment on above: Performed By: #### 9 917371, 13763155, 0527385, 9224112351, 3984476, 638459759, 9327775, 6246649, 5245066, 0990265 #### [facility] (DEFAULT) [address] [place] [address] Albumin/Globulin mass ratio 1.2 {ratio} Low 1.4-2.6 [facility] Comment on above: Performed By: #### 9 697233, 23683714, 5669226, 6520321572, 7211103, 579233515, 6199525, 5146973, 7173097, 0842077 #### [facility] (DEFAULT) [address] [place] [address] Alk Phos 57 IU/L Normal 32-91 [facility] Comment on above: Performed By: #### 9 851248, 82253366, 3469972, 3484256799, 7047477, 185474763, 6732376, 2228035, 8831896, 2295299 #### [facility] (DEFAULT) [address] [place] [address] ALT/SGPT 68.0 IU/L High 14.0-54.0 [facility] Comment on above: Performed By: #### 9 838972, 69788362, 5015880, 1409222481, 0292037, 049793445, 1949286, 3310481, 0619078, 4509586 #### [facility] (DEFAULT) [address] [place] [address] Anion gap molar conc 15.0 mmol/L Normal 5.0-19.0 [facility] Comment on above: Performed By: #### 9 418022, 85274495, 5566341, 3189423317, 4943594, 048957853, 5446732, 2383344, 9160801, 3902556 #### [facility] (DEFAULT) [address] [place] [address] AST/SGOT 40 IU/L Normal 15-41 [facility] Comment on above: Performed By: #### 9 581949, 64169110, 9489660, 9206013981, 2162392, 509410288, 2114629, 7262624, 7427333, 8383447 #### [facility] (DEFAULT) [address] [place] [address] Bili Total 0.2 mg/dL Low 0.3-1.2 [facility] Comment on above: Performed By: #### 9 200926, 67007479, 2697809, 3877001603, 0983293, 479561332, 7296764, 8690247, 9203240, 5521474 #### [facility] (DEFAULT) [address] [place] [address] Calcium mass conc 9.1 mg/dL Normal 8.9-10.3 [facility] Comment on above: Performed By: #### 9 106244, 46185982, 1945379, 4641329769, 1616207, 819541414, 6431328, 4299367, 1492480, 6114149 #### [facility] (DEFAULT) [address] [place] [address] Chloride molar conc 103 mmol/L Normal 101-111 [facility] Comment on above: Performed By: #### 9 356470, 89578812, 4632309, 6885229234, 4607366, 486979707, 8925259, 0529387, 0926962, 8531229 #### [facility] (DEFAULT) [address] [place] [address] CO2 molar conc 24 mmol/L Normal 21-32 [facility] Comment on above: Performed By: #### 9 068970, 43157324, 8950404, 2326581898, 2494172, 613832649, 4294427, 6234701, 0876094, 8729872 #### [facility] (DEFAULT) [address] [place] [address] Creatinine mass conc 0.71 mg/dL Normal 0.60-1.30 [facility] Comment on above: Performed By: #### 9 712345, 29151600, 4976557, 2915699818, 0769730, 568639820, 3248061, 9222118, 5561574, 8356107 #### [facility] (DEFAULT) [address] [place] [address] Globulin mass conc (S) 3.3 g/dL Normal 1.5-4.3 [facility] Comment on above: Performed By: #### 9 086663, 70021801, 2831497, 2803139736, 9923151, 689409484, 0289796, 8746341, 7310870, 4712916 #### [facility] (DEFAULT) [address] [place] [address] Glucose mass conc 94.0 mg/dL Normal 74.0-118.0 [facility] Comment on above: Performed By: #### 9 209945, 12319601, 4363739, 4773495055, 5176080, 934895614, 5199895, 9415827, 6468190, 5752569 #### [facility] (DEFAULT) [address] [place] [address] Osmolality 274 mOsm/L [facility] Comment on above: Performed By: #### 9 094620, 36928817, 9610309, 5480660580, 8168439, 284043804, 7531416, 6350386, 7516678, 3297509 #### [facility] (DEFAULT) [address] [place] [address] Potassium molar conc 3.8 mmol/L Normal 3.6-5.1 [facility] Comment on above: Performed By: #### 9 770876, 96224295, 9298577, 0828072441, 4822990, 013681828, 9353633, 4601113, 3880680, 9611421 #### [facility] (DEFAULT) [address] [place] [address] Protein mass conc 7.4 g/dL Normal 6.5-8.1 [facility] Comment on above: Performed By: #### 9 163434, 69375061, 0979855, 9639105958, 0581841, 457031658, 9361911, 4765988, 6229969, 7063389 #### [facility] (DEFAULT) [address] [place] [address] Sodium molar conc 138.0 mmol/L Normal 136.0-144.0 [facility] Comment on above: Performed By: #### 9 513916, 34739344, 0372192, 9376705505, 9319437, 616602388, 3473432, 6029967, 5450956, 5517462 #### [facility] (DEFAULT) [address] [place] [address] Urea nitrogen mass conc 10 mg/dL Normal 8-26 [facility] Comment on above: Performed By: #### 9 387758, 73749810, 1889604, 0666461515, 5861053, 662858899, 5363106, 7812100, 1489070, 4893569 #### [facility] (DEFAULT) [address] [place] [address] Urea nitrogen/Creatinine mass ratio 14.0 mg/mg Normal 4.6-16.2 [facility] Comment on above: Performed By: #### 9 493121, 63633306, 6923948, 5095904040, 6077930, 052263284, 0483669, 5088798, 1641365, 9848057 #### [facility] (DEFAULT) [address] [place] [address] 35354 Folateon 10-01-2018 Folic Acid Level 13.29 ng/mL Normal 5.90-24.80 [facility] Comment on above: Result Comment: Norm al folate results > 3.0 ng/mL. Performed By: #### 9 280677, 02572917, 9894391, 5573318249, 0548422, 949641661, 8888487, 2311942, 7759813, 5063904 #### [facility] (DEFAULT) [address] [place] [address] 15910 Iron Levelon 10-01-2018 Iron mass conc 53.0 ug/dL Normal 28.0-170.0 [facility] Comment on above: Performed By: #### 9 751483, 77088745, 4152387, 7085644528, 2129893, 113571902, 0894666, 7335843, 6969216, 3235439 #### [facility] (DEFAULT) [address] [place] [address] 69858 Magnesiumon 10-01-2018 Magnesium mass conc 2.01 mg/dL Normal 1.80-2.50 [facility] Comment on above: Result Comment: The reference range for magnesium has changed from 0.40-2.10 mg/dl to 1.80-2.50 mg/dl as of 08/15/15. Performed By: #### 9 812985, 99730883, 4980325, 8183570734, 2266717, 087602219, 1394560, 2930610, 7245495, 0826267 #### [facility] (DEFAULT) [address] [place] [address] 68883 Phoson 10-01-2018 Phosphate mass conc 3.1 mg/dL Normal 2.5-4.6 [facility] Comment on above: Performed By: #### 9 165223, 13886641, 8068230, 9323899703, 0787440, 575435989, 3535873, 8721785, 6239105, 1691703 #### [facility] (DEFAULT) [address] [place] [address] 54075 Vit B12 Lvlon 10-01-2018 Cobalamin (Vitamin B12) mass conc 1488 pg/mL High 180-914 [facility] Comment on above: Performed By: #### 9 838003, 39043872, 2198263, 0937212786, 5869063, 235368513, 3519482, 5074220, 9407791, 3000948 #### [facility] (DEFAULT) [address] [place] [address] 75680 Vit D25 OHon 10-01-2018 Vitamin D 25 OH 41 ng/mL [facility] Comment on above: Result Comment: In , [...] J Clin Endocrinol Metab 2011; 96 (7): 5324-1107. Performed By: #### 9 833569, 35726375, 3984568, 6724272079, 5075019, 418302695, 1503357, 4909390, 8739349, 8044609 #### [facility] (DEFAULT) [address] [place] [address] 57103 Vital Signs Date Time Vital Sign Value Performing Clinician Facility 12-22-2024 13:46-0400 Body height 154.9 cm Xena Mccallum MD Work Phone: [facility] 12-22-2024 13:46-0400 Body mass index (BMI) [Ratio] 28.15 kg/m2 Xena Mccallum MD Work Phone: [facility] 12-22-2024 13:46-0400 Body weight 67.59 kg Xena Mccallum MD Work Phone: [facility] 12-22-2024 13:46-0400 Diastolic blood pressure 74 mm[Hg] Xena Mccallum MD Work Phone: [facility] 12-22-2024 13:46-0400 Heart rate 71 /min Xena Mccallum MD Work Phone: [facility] 12-22-2024 13:46-0400 Respiratory rate 18 /min Xena Mccallum MD Work Phone: [facility] 12-22-2024 13:46-0400 SaO2% (BldA) [Mass fraction] 100 % Xena Mccallum MD Work Phone: [facility] 12-22-2024 13:46-0400 Systolic blood pressure 116 mm[Hg] Xena Mccallum MD Work Phone: [facility] 11-19-2024 10:31-0400 Body mass index (BMI) [Ratio] 28.72 kg/m2 Douglas Debbie DO Work Phone: [facility] 11-19-2024 10:31-0400 Body weight 68.95 kg Douglas Debbie DO Work Phone: [facility] 11-19-2024 10:31-0400 Diastolic blood pressure 64 mm[Hg] Douglas Debbie DO Work Phone: [facility] 11-19-2024 10:31-0400 Systolic blood pressure 98 mm[Hg] Douglas Debbie DO Work Phone: [facility] 11-04-2024 11:03-0400 Body mass index (BMI) [Ratio] 33.25 kg/m2 Douglas Debbie DO Work Phone: [facility] 11-04-2024 11:03-0400 Body weight 79.83 kg Douglas Debbie DO Work Phone: [facility] 11-04-2024 11:03-0400 Diastolic blood pressure 80 mm[Hg] Douglas Debbie DO Work Phone: [facility] 11-04-2024 11:03-0400 Systolic blood pressure 120 mm[Hg] Douglas Debbie DO Work Phone: [facility] 10-28-2024 08:58-0400 Body mass index (BMI) [Ratio] 32.83 kg/m2 Maddie Harp PA Work Phone: [facility] 10-28-2024 08:58-0400 Body weight 78.81 kg Maddie Harp PA Work Phone: [facility] 10-28-2024 08:58-0400 Diastolic blood pressure 82 mm[Hg] Maddie Harp PA Work Phone: [facility] 10-28-2024 08:58-0400 Systolic blood pressure 122 mm[Hg] Maddie Harp PA Work Phone: [facility] 10-21-2024 14:00-0400 Body mass index (BMI) [Ratio] 33.35 kg/m2 Douglas Debbie DO Work Phone: [facility] 10-21-2024 14:00-0400 Body weight 80.06 kg Douglas Debbie DO Work Phone: [facility] 10-21-2024 14:00-0400 Diastolic blood pressure 84 mm[Hg] Douglas Debbie DO Work Phone: [facility] 10-21-2024 14:00-0400 Systolic blood pressure 120 mm[Hg] Douglas Debbie DO Work Phone: [facility] 10-07-2024 14:10-0400 Body mass index (BMI) [Ratio] 33.78 kg/m2 Douglas Debbie DO Work Phone: [facility] 10-07-2024 14:10-0400 Body weight 81.1 kg Douglas Debbie DO Work Phone: [facility] 10-07-2024 14:10-0400 Diastolic blood pressure 68 mm[Hg] Douglas Debbie DO Work Phone: [facility] 10-07-2024 14:10-0400 Systolic blood pressure 114 mm[Hg] Douglas Debbie DO Work Phone: [facility] 09-23-2024 11:46-0400 Body mass index (BMI) [Ratio] 33.09 kg/m2 Douglas Debbie DO Work Phone: [facility] 09-23-2024 11:46-0400 Body weight 79.43 kg Douglas Debbie DO Work Phone: [facility] 09-23-2024 11:46-0400 Diastolic blood pressure 74 mm[Hg] Douglas Debbie DO Work Phone: [facility] 09-23-2024 11:46-0400 Systolic blood pressure 110 mm[Hg] Douglas Debbie DO Work Phone: [facility] 09-08-2024 09:43-0400 Body mass index (BMI) [Ratio] 32.88 kg/m2 Douglas Debbie DO Work Phone: [facility] 09-08-2024 09:43-0400 Body weight 78.93 kg Douglas Debbie DO Work Phone: [facility] 09-08-2024 09:43-0400 Diastolic blood pressure 70 mm[Hg] Douglas Debbie DO Work Phone: [facility] 09-08-2024 09:43-0400 Systolic blood pressure 112 mm[Hg] Douglas Debbie DO Work Phone: [facility] 08-13-2024 09:32-0400 Body mass index (BMI) [Ratio] 32.08 kg/m2 Douglas Debbie DO Work Phone: [facility] 08-13-2024 09:32-0400 Body weight 77.02 kg Douglas Debbie DO Work Phone: [facility] 08-13-2024 09:32-0400 Diastolic blood pressure 76 mm[Hg] Douglas Debbie DO Work Phone: [facility] 08-13-2024 09:32-0400 Systolic blood pressure 116 mm[Hg] Douglas Debbie DO Work Phone: [facility] 07-16-2024 09:08-0400 Body mass index (BMI) [Ratio] 30.42 kg/m2 Douglas Debbie DO Work Phone: [facility] 07-16-2024 09:08-0400 Body weight 73.03 kg Douglas Debbie DO Work Phone: [facility] 07-16-2024 09:08-0400 Diastolic blood pressure 82 mm[Hg] Douglas Debbie DO Work Phone: [facility] 07-16-2024 09:08-0400 Systolic blood pressure 118 mm[Hg] Douglas Debbie DO Work Phone: [facility] 06-17-2024 08:57-0500 Body mass index (BMI) [Ratio] 30.42 kg/m2 Maddie Dustin PA Work Phone: [facility] 06-17-2024 08:57-0500 Body weight 73.03 kg Maddie Dustin PA Work Phone: [facility] 06-17-2024 08:57-0500 Diastolic blood pressure 72 mm[Hg] Maddie Dustin PA Work Phone: [facility] 06-17-2024 08:57-0500 Systolic blood pressure 112 mm[Hg] Maddie [place] PA Work Phone: [facility] 05-20-2024 15:27-0500 Body mass index (BMI) [Ratio] 29.55 kg/m2 Douglas Debbie DO Work Phone: [facility] 05-20-2024 15:27-0500 Body weight 70.94 kg Douglas Debbie DO Work Phone: [facility] 05-20-2024 15:27-0500 Diastolic blood pressure 70 mm[Hg] Douglas Debbie DO Work Phone: [facility] 05-20-2024 15:27-0500 Systolic blood pressure 102 mm[Hg] Douglas Debbie DO Work Phone: [facility] 04-17-2024 11:01-0500 Body mass index (BMI) [Ratio] 28.72 kg/m2 [facility] 04-17-2024 11:01-0500 Body weight 68.95 kg [facility] Nurse [facility] 04-17-2024 11:01-0500 Diastolic blood pressure 70 mm[Hg] [facility] Nurse [facility] 04-17-2024 11:01-0500 Systolic blood pressure 118 mm[Hg] [facility] Nurse [facility] 01-09-2024 15:59-0400 Body height 154.9 cm Xena Mccallum MD Work Phone: [facility] 01-09-2024 15:59-0400 Body mass index (BMI) [Ratio] 29.25 kg/m2 Xena Mccallum MD Work Phone: [facility] 01-09-2024 15:59-0400 Body weight 70.22 kg Xena Mccallum MD Work Phone: [facility] 01-09-2024 15:59-0400 Diastolic blood pressure 70 mm[Hg] Xena Mccallum MD Work Phone: [facility] 01-09-2024 15:59-0400 Heart rate 82 /min Xena Mccallum MD Work Phone: [facility] 01-09-2024 15:59-0400 Respiratory rate 18 /min Xena Mccallum MD Work Phone: [facility] 01-09-2024 15:59-0400 SaO2% (BldA) [Mass fraction] 99 % Xena Mccallum MD Work Phone: [facility] 01-09-2024 15:59-0400 Systolic blood pressure 122 mm[Hg] Xena Mccallum MD Work Phone: [facility] 08-16-2021 10:22-0400 Blood Pressure Location Scotty LOGAN [facility] 08-16-2021 10:22-0400 Diastolic blood pressure 72 mm[Hg] Scotty DESMOND [facility] 08-16-2021 10:22-0400 Heart rate 84 /min Scotty LOGAN [facility] 08-16-2021 10:22-0400 Respiratory rate 16 /min Scotty LOGAN [facility] 08-16-2021 10:22-0400 Systolic blood pressure 104 mm[Hg] Scotty LOGAN [facility] Encounters Encounter Date Encounter Type Care Provider Facility Start: 12-22-2024 End: 12-22-2024 Bamboo flowsstephanie Mccallum MD Work Phone: [facility] Start: 12-22-2024 End: 12-22-2024 Bamboo Flash Valetstephanie Mccallum MD Work Phone: [facility] Start: 12-22-2024 End: 12-22-2024 ambulatory XENA MCCALLUM Not Available Start: 12-22-2024 End: 12-22-2024 Office outpatient visit 25 minutes Xena Mccallum MD Work Phone: [facility] Comment on above: Intractable chronic migraine without aura and with status migrainosus (Primary Dx); Iron deficiency anemia secondary to inadequate dietary iron intake; Depression, unspecified depression type Start: 11-19-2024 End: 11-19-2024 Bamboo flowsheet Douglas Debbie DO Work Phone: [facility] Start: 11-19-2024 End: 11-19-2024 Bamboo flowsheet Douglas Debbie DO Work Phone: [facility] Start: 11-19-2024 End: 11-19-2024 ambulatory DOUGLAS DEBBIE Not Available Start: 11-19-2024 End: 11-19-2024 Postop follow up visit related to original px Douglas Debbie DO Work Phone: [facility] Comment on above: Encounter for postpa rtum visit ([facility]); Postop check; S/P section; Migraine without aura and without status migrainosus, not intractable Start: 11-13-2024 End: 11-13-2024 Clinisync Result Encounter Douglas Debbie DO Work Phone: [facility] Unsolicited Start: 11-13-2024 End: 11-13-2024 Clinisync Result Encounter Douglas Debbie DO Work Phone: [facility] Unsolicited Start: 11-12-2024 End: 11-12-2024 Clinisync Result Encounter Douglas Debbie DO Work Phone: [facility] Unsolicited Start: 11-12-2024 End: 11-12-2024 Clinisync Result Encounter Douglas Debbie DO Work Phone: [facility] Unsolicited Start: 11-12-2024 End: 11-12-2024 ambulatory Douglas Debbie [facility] Work Phone: Start: 11-12-2024 End: 11-12-2024 Departed Referred Douglas Debbie -[facility] Start: 11-11-2024 End: 11-11-2024 Clinisync Result Encounter [...] Phone: [facility] Comment on above: 37 weeks gestation o f ([facility]); Third trimester ([facility]); Anxiety, generalized ; History of gastric bypass Start: 10-28-2024 End: 10-28-2024 Bamboo flowsheet Maddie WRIGHT Work Phone: [facility] Start: 10-28-2024 End: 10-28-2024 Bamboo flowsheet Maddie WRIGHT Work Phone: [facility] Start: 10-28-2024 End: 10-28-2024 Clinisync Result Encounter Douglas Debbie DO Work Phone: [facility] Unsolicited Start: 10-28-2024 End: 10-28-2024 flow sheet Maddie WRIGHT Work Phone: [facility] Comment on above: Third trimester preg lian ([facility]); 36 weeks gestation of ([facility]) Start: 10-28-2024 End: 10-28-2024 ambulatory MADDIE HARP [...] on above: Nausea (Primary Dx); Third trimester ([facility]); 35 weeks gestation of ([facility]); Anxiety, generalized Start: 10-14-2024 End: 10-14-2024 Clinisync [...] Start: 06-17-2024 End: 06-17-2024 Bamboo flowsheet Maddie Harp PA Work Phone: [facility] Start: 06-17-2024 [...] 07-24-2023 End: 07-25-2023 ambulatory Scotty LOGAN Facility:[facility] [place] Start: 07-24-2023 End: 07-24-2023 Patient encounter procedure Scotty LOGAN [facility] Start: 05-09-2022 ambulatory CHERYL TOTH Facility:[facility] Start: 04-09-2022 End: 04-10-[address] SCOTTY LOGAN Facility:[facility] Start: 02-28-2022 End: 03-01-2022 ambulatory CHERYL TOTH Facility:[facility] Start: 12-28-2021 End: 12-29-[address] DOCTOR WHALEN Facility:[facility] Start: 09-01-2021 End: 09-02-[address] DOCTOR WHALEN Facility:[facility] Start: 08-16-2021 End: 08-16-2021 Patient encounter procedure Scotty LOGAN [facility] Start: 08-11-2021 End: 08-12-[address] DOCTOR WHALEN Facility:[facility] Start: 05-22-2021 End: 05-29-[address] DOUGLAS LEWIS Facility:[facility] Start: 05-11-2021 End: 05-14-2021 Evaluation and management of inpatient DR DOUGLAS LEWIS Facility:[facility] Procedures Date Procedure Procedure Detail Performing Clinician Start: 11-13-2024 ALL CBC WITH AUTO DIFF Douglas Debbie DO Work Phone: Start: 11-12-2024 ALL CBC WITH AUTO DIFF Douglas Debbie DO Work Phone: Start: 11-11-2024 US OB BPP W NON-STRESS Generic External Data Provider Start: 11-04-2024 Urnls dip stick/tablet rgnt non-auto w/o micrscp Douglas Debbie DO Work Phone: Start: 11-04-2024 US OB BPP W NON-STRESS Generic External Data Provider Start: 10-28-2024 US OB BPP W NON-STRESS Douglas Debbie DO Work Phone: Start: 10-21-2024 US OB BPP W NON-STRESS Generic External Data Provider Start: 10-21-2024 Urnls dip stick/tablet rgnt non-auto w/o micrscp Douglas Debbie DO Work Phone: Start: 10-21-2024 CULTURE, GROUP B STREP WITH SUSCEPTIBLITY Douglas Debbie DO Work Phone: Start: 10-14-2024 US OB BPP W NON-STRESS Generic External Data Provider Start: 10-07-2024 US OB BPP W NON-STRESS Generic External Data Provider Start: 09-23-2024 Urnls dip stick/tablet rgnt non-auto w/o micrscp Douglas Debbie DO Work Phone: Start: 07-22-2024 [facility] CMP (CMP) (FOR REMOTE [facility] USE) Douglas Debbie DO Work Phone: Start: 07-22-2024 METRO BILIRUBIN, DIRECT Douglas Debbie DO Work Phone: Start: 07-16-2024 Urnls dip stick/tablet rgnt non-auto w/o micrscp Maddie WRIGHT Work Phone: Start: 06-17-2024 Urnls dip stick/tablet rgnt non-auto w/o micrscp Maddie WRIGHT Work Phone: Start: 05-20-2024 Urnls dip stick/tablet rgnt non-auto w/o micrscp Douglas Debbie DO Work Phone: Start: 05-11-2024 BOX TEST Douglas Debbie DO Work Phone: Start: 04-17-2024 Urine test visual color cmprsn meths Douglas Debbie DO Work Phone: Start: 04-17-2024 Urnls dip stick/tablet rgnt non-auto w/o micrscp Douglas Debbie DO Work Phone: Start: 02-03-2024 ALL CBC WITH AUTO DIFF Generic External Data Provider Start: 01-09-2024 Culture bacterial quanttative colony count urine Xena Mccallum MD Work Phone: Start: 01-09-2024 NOTE Xena Mccallum MD Work Phone: Start: 01-09-2024 End: 01-09-2024 Urnls dip stick/tablet rgnt non-auto w/o micrscp Xena Mccallum MD Work Phone: Start: 05-12-2021 Extraction of Products of Conception, Low Cervical, Open Approach DR SCOTTY LOGAN Start: 05-12-2021 Drainage of Amniotic Fluid, Therapeutic from Products of Conception, Via Natural or Artificial Opening DR SCOTTY LOGAN Start: 05-12-2021 Introduction of Hormone into Female Reproductive, Via Natural or Artificial Opening DR SCOTTY LOGAN Start: 03-19-2021 Cystoscope, device (physical object) Scotty LOGAN Bypass of stomach Scotty MALDONADO Cholecystectomy Scotty LOGAN H/O: section S/P sectio n Douglas Lewis DO Work Phone: Plan of Treatment Date Care Activity Detail Author Start: 01-04-2025 End: 01-04-2025 Patient encounter procedure NICOLETTE AVERY Start: 12-28-2024 Influenza vaccination [facility] Start: 12-23-2024 End: 12-23-2024 Patient encounter procedure 12/23/2024 1:10 PM EDT Office Visit NICOLETTE AVERY [address] [place] [address] Douglas Lewis, DO [address] [place], [place] [id number] NICOLETTE AVERY Start: 12-22-2024 End: 12-22-2025 CBC W Auto Differential panel - Blood CBC and differential Lab Routine Iron deficiency anemia secondary to inadequate dietary iron intake Expected: 12/22/2024 (Approximate), Expires: 12/22/2025 [facility] Work Phone: Comment on above: Expected: 12/22/2024 (Approximate), Expires: 12/22/2025 Start: 12-22-2024 End: 12-22-2025 TSH W/REFLEX TO FT4 TSH W/REFLEX TO FT4 Lab Routine Iron deficiency anemia secondary to inadequate dietary iron intake Depression, unspecified depression type Expected: 12/22/2024 (Approximate), Expires: 12/22/2025 [facility] Comment on above: Expected: 12/22/2024 (Approximate), Expires: 12/22/2025 Start: 11-19-2024 End: 11-19-2024 Patient encounter procedure 11/19/2024 9:40 AM EDT Office Visit [facility] [address] [facility] [place] [phone] Douglas Lewis, DO [address] [place], [place] [address] [facility] Start: 11-10-2024 End: 11-10-2024 Patient encounter procedure 11/10/2024 10:00 AM EDT Office Visit [facility] [address] [place] [phone] Douglas Lewis, DO [address] [place] [address] [facility] Start: 11-04-2024 End: 11-04-2024 Patient encounter procedure 11/04/2024 10:50 AM EDT Routine [facility] [address] [place] [phone] Douglas Lewis, DO [address] [place] [address] [facility] Start: 10-28-2024 End: 10-28-2024 Patient encounter procedure [facility] Comment on above: Arrived Start: 10-26-2024 Influenza vaccination Influenza Vacc ine (#1) [facility] Comment on above: Postponed from 12/28 (Patient Refused) Start: 10-21-2024 End: 10-21-2024 Patient encounter procedure 10/21/2024 1:30 PM EDT Routine [facility] [address] [place] [phone] Douglas Lewis, DO [address] [place] [address] [facility] Start: 10-07-2024 End: 10-07-2024 Patient encounter procedure 10/07/2024 1:50 PM EDT Routine [facility] [address] [place] [phone] Douglas Lewis, DO [address] [place] [address] [facility] Start: 09-23-2024 End: 09-23-2024 Patient encounter procedure 09/23/2024 11:30 AM EDT Routine [facility] [address] [facility] [place] [phone] Douglas Lewis, DO [address] [place] [address] [facility] Start: 09-15-2024 End: 09-15-2024 Professional / ancillary services management 09/15/2024 11:30 AM EDT Ancillary Procedure [facility] [address] [facility] [place] [address] [facility] Start: [...] AM EDT Routine [facility] [address] [facility] [place] [phone] Douglas Lewis, DO [address] [place] [address] [facility] Start: 08-26-2024 End: 08-26-2024 Patient encounter procedure 08/26/2024 8:50 AM EDT Routine [facility] [address] [facility] [place] [address] Ingrid Villalta, JENNY [address] [facility] [place] [address] [facility] Start: 08-13-2024 End: 08-13-2024 Patient encounter procedure 08/13/2024 9:10 AM EDT Routine [facility] [address] [facility] [place] [address] Douglas Lewis, [address] [facility] [address] [place], [place] [id number] [facility] Start: 07-16-2024 End: 07-16-2025 [...] Ancillary Procedure [facility] [address] [facility] [place] [address] [facility] Start: 06-17-2024 End: 06-17-2025 [...] first trimester Expected: 04/17/2024 (Approximate), Expires: 04/17/2025 [facility] Comment on above: Expected: 04/17/2024 (Approximate), Expires: 04/17/2025 Start: 04-17-2024 End: 04-17-2025 US Pelvis transvaginal US OB transvaginal Imaging Routine Missed menses Expected: 04/17/2024 (Approximate), Expires: 04/17/2025 [facility] Comment on above: Expected: 04/17/2024 (Approximate), Expires: 04/17/2025 Start: 01-16-2024 End: 01-16-2024 Professional / ancillary services management 01/16/2024 10:00 AM EDT Ancillary Procedure [facility] [address] [place] [address] Start: 01-11-2024 End: 01-10-2025 CT Abdomen and Pelvis WO contrast CT abdomen pelvis wo IV contrast Imaging Routine Other microscopic hematuria Expected: 01/11/2024, Expires: 01/10/2025 [facility] Work Phone: Comment on above: Expected: 01/11/2024 , Expires: 01/10/2025 Bacteria identified in Urine by Culture Urine culture Microbiology Routine Missed menses Ordered: 04/17/2024 [facility] Comment on above: Ordered: 04/17/2024 CBC W Auto Different ial panel - Blood CBC and differential Lab Routine Missed menses , unspecified gestational age Ordered: 04/17/2024 [facility] Comment on above: Ordered: 04/17/2024 CHLAMYDIA TRACHOMATI S (GENITO/STI) CHLAMYDIA TRACHOMATIS (GENITO/STI) Lab Routine Screening examination for STI Ordered: 06/17/2024 [facility] Comment on above: Ordered: 06/17/2024 Hemoglobin A1c/Hemoglobin.total in Blood Hemoglobin A1c Lab Routine Missed menses , unspecified gestational age Ordered: 04/17/2024 [facility] Comment on above: Ordered: 04/17/2024 Hemoglobin A1c/Hemoglobin.total in Blood Hemoglobin A1c Lab Routine 22 weeks gestation of Second trimester Diabetes mellitus screening History of gastric bypass Ordered: 07/16/2024 [facility] Comment on above: Ordered: 07/16/2024 Hepatitis B virus surface Ag [Presence] in Serum or Plasma by Immunoassay Hepatitis B surface antigen Lab Routine Missed menses , unspecified gestational age Ordered: 04/17/2024 [facility] Comment on above: Ordered: 04/17/2024 Hepatitis C virus Ab [Presence] in Serum or Plasma by Immunoassay Hepatitis C antibody Lab Routine Missed menses , unspecified gestational age Ordered: 04/17/2024 [facility] Comment on above: Ordered: 04/17/2024 HIV-1/HIV-2 antigen/antibody combination immunoassay HIV-1 and HIV-2 antibodies Lab Routine Missed menses , unspecified gestational age Ordered: 04/17/2024 [facility] Comment on above: Ordered: 04/17/2024 Neisseria gonorrhoea e DNA [Presence] in Unspecified specimen by DEZ with probe detection Neisseria gonorrhea DNA probe, direct Lab Routine Screening examination for STI Ordered: 06/17/2024 [facility] Comment on above: Ordered: 06/17/2024 Reagin Ab [Presence] in Serum by RPR RPR Lab Routine Missed menses , unspecified gestational age Ordered: 04/17/2024 [facility] Comment on above: Ordered: 04/17/2024 Rubella antibody, IgG Rubella an tibody, IgG Lab Routine Missed menses , unspecified gestational age Ordered: 04/17/2024 [facility] Comment on above: Ordered: 04/17/2024 SURESWAB(R) ADVANCED VAGINITIS PLUS, TMA SURESWAB(R) ADVANCED VAGINITIS PLUS, TMA Pathology and Cytology Routine Screening examination for STI Ordered: 06/17/2024 [facility] Work Phone: Comment on above: Ordered: 06/17/2024 Immunizations Immunization Date Immunization Notes Care Provider Fa cility 05-03-2020 influenza, injectabl e, quadrivalent, contains preservative Xena Mccallum MD Work Phone: [facility] 05-03-2020 influenza virus vacc ine, unspecified formulation Xena Mccallum MD Work Phone: [facility] 01-29-2018 influenza, injectabl e, quadrivalent, contains preservative Xena Mccallum MD Work Phone: [facility] 02-21-2016 influenza, seasonal, injectable, preservative free Xena Mccallum MD Work Phone: [facility] Payers Date Payer Category Payer Self-pay 2023 [facility] [id number] 2023 Unknown [id number] 2022 Medicaid [employer] [place] [employer] [id number] 2022-Present [address] [place] [address] [id number] 2022 Medicaid (Managed Care) [employer] [id number] 1995 Unknown [id number] 2.16.840.1.894522.3.579.2. 593 1995 Unknown [id number] 2.16.840.1.303610.3.579.2. 593 1995 Unknown [id number] 2.16.840.1.104005.3.579.2. 593 1995 Unknown [id number] 2.16.840.1.626247.3.579.2. 593 1995 Unknown [id number] 2.16.840.1.499485.3.579.2. 593 1995 Unknown [id number] 2.16.840.1.590229.3.579.2. 593 1995 Unknown [id number] 2.16.840.1.008051.3.579.2. 593 1995 Unknown [id number] 2.16.840.1.265223.3.579.2. 593 1995 Unknown [id number] 2.16.840.1.130222.3.579.2. 593 1995 Unknown [id number] 2.16.840.1.459407.3.579.2. 727 1995 Unknown [id number] 2.16.840.1.155189.3.579.2. 1259 1995 Unknown [id number] 2.16.840.1.771576.3.579.2. 1259 1995 Unknown [id number] 2.16.840.1.901444.3.579.2. 9 1995 Unknown [id number] 2.16.840.1.399311.3.579.2. 9 1995 Unknown [id number] 2.16.840.1.509728.3.579.2. 9 1995 Unknown [id number] 2.16.840.1.892428.3.579.2. 1258 1995 Unknown [id number] 2.16.840.1.250570.3.579.2. 1258 1995 Unknown [id number] 2.16.840.1.600472.3.579.2. 1258 1995 Unknown [id number] 2.16.840.1.210442.3.579.2. 1258 1995 Unknown [id number] 2.16.840.1.308588.3.579.2. 1258 1995 Unknown [id number] 2.16.840.1.108141.3.579.2. 1258 1995 Unknown [id number] 2.16.840.1.892692.3.579.2. 9 1995 Unknown [id number] 2.16.840.1.287327.3.579.2. 1258 1995 Unknown [id number] 2.16.840.1.053466.3.579.2. 1258 1995 Unknown [id number] 2.16.840.1.857962.3.579.2. 1258 1995 Unknown [id number] 2.16.840.1.065217.3.579.2. 1258 1995 Unknown [id number] 2.16.840.1.398440.3.579.2. 1259 1959 Self-pay [id number] 1959 Unknown [id number] Unknown [facility] Employees [id number] Unknown [id number] 2.16.840.1.771154.3.579.2. 531 Social History Date Type Detail Facility Start: 04-29-2020 End: 06-18-2023 Tobacco smoking status Never smoked tobacco (finding) [facility] Comment on above: Pt. denies Tobacco smoking status Never [facility] Comment on above: Pt. denies Start: 06-18-2023 End: 12-22-2024 Sex Assigned At Female [facility] Start: 06-18-2023 Tobacco use and exposure Smokeless tobacco non-user [facility] Start: 01-13-2024 End: 12-22-2024 Alcoholic beverage intake Current drinker of alcohol (finding) [facility] Start: 06-18-2023 End: 12-22-2024 History of Social function [facility] How [...] [facility] Start: 02-27-2024 [facility] Tobacco smoking stat us NHIS Unknown if ever smoked [facility] Work Phone: Sex Female (finding) [facility] Start: 1995 Sex Assigned At Female [facility] Clinical Notes 05-11-2021 to 12-22-2024 Xena Mccallum MD - 12/22/2024 1:40 PM Leslie Mccallum MD - 12/22/2024 1:40 PM EDEfrain Mccallum MD - 12/22/2024 1:40 PM EDTCshweta Lewis DO - 11/19/2024 9:40 AM EDT Note Date & Type Note Facility 12-22-2024 History of Presen t illness Narrative Associated Problem(s): Iron deficiency anemia secondary to inadequate dietary iron intake Orders: CBC and differential; Future TSH W/REFLEX TO FT4; Future Associated Problem(s): Depression Orders: TSH W/REFLEX TO FT4; Future Images from the original note were not included. Subjective ?Quick Links Last Note in Specialty Snapshot Edit RFV/CC Edit Screenings Current Meds Patient ID: Tan Mars is a 29 [...] aid hormonal balance and sunflower lecithin for breast pain. Diet: Grazing all day long, higher protein [...] lb LMP 02/13/2024 SpO2 100% BMI 28.15 kg/m OB Status Recent Smoking Status Never BSA 1.71 m Physical Exam Constitutional: Appearance: Normal appearance. [...] to 3 weeks. documented in this encounter [facility] 11-19-2024 History of Presen t illness Narrative Reason for Appointment: Patient ID: Tan Mars is a 29 y.o. female who presents for Care and Post-op Visit Patient presents today for 1 Week Post Op Follow Up appointment. MEDICATIONS Current Outpatient Medications Medication Instructions busPIRone (Buspar) 10 MG tablet TAKE 1 TABLET BY MOUTH IF NEEDED (1/2 TABLET NEEDED AT BEDTIME) Calcium Carbonate (CALCIUM 500 PO) 1 tablet, Daily citalopram (CELEXA) 20 mg, Oral, Daily Ferrous Sulfate (iron) 325 (65 Fe) MG tablet 1 tablet, Daily labetalol (Normodyne) 200 MG tablet 1 tablet, 2 times daily MV-Min-Fe Fum-FA-DHA ( 1 PO) 1 tablet, [...] 08/10/2021 Insomnia 06/18/2023 22 weeks gestation of ([facility]) 07/16/2024 Second trimester ([facility]) 07/16/2024 Resolved Ambulatory Problems Diagnosis Date Noted [...] History: Procedure Laterality Date BARIATRIC SURGERY 07/2018 SECTION, LOW TRANSVERSE 11/12/2024 CHOLECYSTECTOMY 05/2014 Laparoscopic COSMETIC SURGERY 05/17/2020 [facility] [place] ELBOW SURGERY Left 1999 OTHER SURGICAL HISTORY [...] Breath sounds: Normal breath sounds. Abdominal: General: A surgical scar is present. Bowel sounds are normal. There is no [...] nursing note reviewed. Exam conducted with a custodial supervisor present. Vitals: Estimated body mass index is 28.72 kg/m as calculated from the following: Height as of 24: 5' 1 . Weight as of this encounter: 152 lb. BP: 98/64 Patient's last menstrual period was 02/13/2024. ASSESSMENT & PLAN ICD-10-CM 1. Encounter for visit ([facility]) Z39.2 2. Postop check Z09 3. S/P section Z98.891 Patient presents today for a one week postop section check. Patient is doing well with minor complaints of pain. Incision has been noted as healing well with no signs and symptoms of infection. Follow Up: Patient is to return in 5 weeks for 6 week evaluation. Documented by Noemy Zapata LPN on behalf of: Douglas Lewis DO documented in this encounter [facility] 11-04-2024 History of Presen t illness Narrative [...] 08/10/2021 Insomnia 06/18/2023 22 weeks gestation of ([facility]) 07/16/2024 Second trimester ([facility]) 07/16/2024 Resolved Ambulatory Problems Diagnosis Date Noted [...] COSMETIC SURGERY 05/17/2020 [facility] [place] ELBOW SURGERY Left 1999 OTHER SURGICAL HISTORY [...] nursing note reviewed. Exam conducted with a custodial supervisor present. Vitals: Estimated body mass index is 33.25 kg/m as calculated from the following: Height as of 24: 5' 1 . Weight as of this encounter: 176 lb. BP: 120/80 Patient's last menstrual period was 02/13/2024. ASSESSMENT & PLAN ICD-10-CM 1. 37 weeks gestation of ([facility]) Z3A.37 POCT urinalysis dipstick manually resulted 2. Third trimester ([facility]) Z34.93 POCT urinalysis dipstick manually resulted 3. [...] Douglas Lewis DO documented in this encounter [facility] 10-28-2024 History of Presen t illness Narrative [...] 08/10/2021 Insomnia 06/18/2023 22 weeks gestation of ([facility]) 07/16/2024 Second trimester ([facility]) 07/16/2024 Resolved Ambulatory Problems Diagnosis [...] COSMETIC SURGERY 05/17/2020 [facility] [place] ELBOW SURGERY Left 1999 OTHER SURGICAL HISTORY [...] ASSESSMENT & PLAN ICD-10-CM 1. Third trimester ([facility]) Z34.93 2. 36 weeks gestation of ([facility]) Z3A.36 Return OB: Patient presents [...] of: KYLE Martinez documented in this encounter [facility] 10-21-2024 History of Presen t illness Narrative [...] 08/10/2021 Insomnia 06/18/2023 22 weeks gestation of ([facility]) 07/16/2024 Second trimester ([facility]) 07/16/2024 Resolved Ambulatory Problems Diagnosis [...] COSMETIC SURGERY 05/17/2020 [facility] [place] ELBOW SURGERY Left 2000 OTHER SURGICAL HISTORY [...] nursing note reviewed. Exam conducted with a custodial supervisor present. Vitals: Estimated body mass index is 33.35 kg/m as calculated from the following: Height as of 24: 5' 1 . Weight as of this encounter: 176 lb 8 oz. BP: 120/84 Patient's last menstrual period was 02/13/2024. ASSESSMENT & PLAN ICD-10-CM 1. Third trimester ([facility]) Z34.93 POCT urinalysis dipstick manually resulted CULTURE, GROUP B STREP WITH SUSCEPTIBLITY CULTURE, GROUP B STREP WITH SUSCEPTIBLITY 2. 35 weeks gestation of ([facility]) Z3A.35 Return OB: Patient presents today for [...] Douglas Lewis DO documented in this encounter [facility] 10-07-2024 History of Presen t illness Narrative [...] Active Ambulatory Problems Diagnosis Date Noted Depression ([facility]) 06/18/2023 Anemia 06/18/2023 Anxiety 06/18/2023 [...] COSMETIC SURGERY 05/17/2020 [facility] [place] ELBOW SURGERY Left 2000 OTHER SURGICAL HISTORY [...] nursing note reviewed. Exam conducted with a custodial supervisor present. Vitals: Estimated body mass index is [...] Douglas Lewis DO documented in this encounter [facility] 09-23-2024 History of Presen t illness [...] Active Ambulatory Problems Diagnosis Date Noted Depression ([facility]) 06/18/2023 Anemia 06/18/2023 Anxiety 06/18/2023 Recurrent nephrolithiasis 09/05/2016 Essential thrombocythemia ([facility]) 06/18/2023 Gastric bypass status for [...] COSMETIC SURGERY 05/17/2020 [facility] [place] ELBOW SURGERY Left 1999 OTHER SURGICAL HISTORY [...] nursing note reviewed. Exam conducted with a custodial supervisor present. Vitals: Estimated body mass index is [...] Douglas Lewis DO documented in this encounter [facility] 09-08-2024 History of Presen t illness [...] Active Ambulatory Problems Diagnosis Date Noted Depression ([facility]) 06/18/2023 Anemia 06/18/2023 Anxiety 06/18/2023 Recurrent nephrolithiasis 09/05/2016 Essential thrombocythemia ([facility]) 06/18/2023 Gastric bypass status for [...] COSMETIC SURGERY 05/17/2020 [facility] [place] ELBOW SURGERY Left 2000 OTHER SURGICAL HISTORY [...] nursing note reviewed. Exam conducted with a custodial supervisor present. Vitals: Estimated body mass index is [...] Douglas Lewis DO documented in this encounter [facility] 08-13-2024 History of Presen t illness [...] Active Ambulatory Problems Diagnosis Date Noted Depression ([facility]) 06/18/2023 Anemia 06/18/2023 Anxiety 06/18/2023 Recurrent nephrolithiasis 09/05/2016 Essential thrombocythemia ([facility]) 06/18/2023 Gastric bypass status for [...] COSMETIC SURGERY 05/17/2020 [facility] [place] ELBOW SURGERY Left 2000 OTHER SURGICAL HISTORY [...] nursing note reviewed. Exam conducted with a custodial supervisor present. Vitals: Estimated body mass index is [...] Douglas Lewis DO documented in this encounter [facility] 07-16-2024 History of Presen t illness [...] Active Ambulatory Problems Diagnosis Date Noted Depression ([facility]) 06/18/2023 Anemia 06/18/2023 Anxiety 06/18/2023 Recurrent nephrolithiasis 09/05/2016 Essential thrombocythemia ([facility]) 06/18/2023 Gastric bypass status for [...] COSMETIC SURGERY 05/17/2020 [facility] [place] ELBOW SURGERY Left 1999 OTHER SURGICAL HISTORY 2015 kidney stent WRIST SURGERY Left 2001 REVIEW OF SYSTEMS Review of Systems: Review [...] nursing note reviewed. Exam conducted with a custodial supervisor present. Vitals: Estimated body mass index is [...] Maddie Harp PA-C documented in this encounter [facility] 06-17-2024 History of Presen t illness [...] Active Ambulatory Problems Diagnosis Date Noted Depression ([facility]) 06/18/2023 Anemia 06/18/2023 Anxiety 06/18/2023 Recurrent nephrolithiasis 09/05/2016 Essential thrombocythemia ([facility]) 06/18/2023 Gastric bypass status for [...] COSMETIC SURGERY 05/17/2020 [facility] [place] ELBOW SURGERY Left 2000 OTHER SURGICAL HISTORY [...] nursing note reviewed. Exam conducted with a custodial supervisor present. Vitals: Estimated body mass index is [...] of: KYLE Martinez documented in this encounter [facility] 05-20-2024 History of Presen t illness [...] Active Ambulatory Problems Diagnosis Date Noted Depression ([facility]) 06/18/2023 Anemia 06/18/2023 Anxiety 06/18/2023 Recurrent nephrolithiasis 09/05/2016 Essential thrombocythemia ([facility]) 06/18/2023 Gastric bypass status for [...] COSMETIC SURGERY 05/17/2020 [facility] [place] ELBOW SURGERY Left 1999 OTHER SURGICAL HISTORY [...] nursing note reviewed. Exam conducted with a custodial supervisor present. Vitals: Estimated body mass index is [...] or undercooked meat, and stay away from [facility]. Patient has been consulted regarding any further do's and don'ts of . Patient voiced understanding and all questions and concerns were answered. Orders Placed This Encounter Procedures POCT urinalysis dipstick manually resulted Follow Up: Patient is to return in 4 weeks for routine OB appointment. Documented by Thelma Perry LPN on behalf of: Douglas Lewis DO documented in this encounter [facility] 04-17-2024 History of Presen t illness [...] Active Ambulatory Problems Diagnosis Date Noted Depression ([facility]) 06/18/2023 Anemia 06/18/2023 Anxiety 06/18/2023 Recurrent nephrolithiasis 09/05/2016 Essential thrombocythemia ([facility]) 06/18/2023 Gastric bypass status for [...] COSMETIC SURGERY 05/17/2020 [facility] [place] ELBOW SURGERY Left 1999 OTHER SURGICAL HISTORY [...] or undercooked meat, and stay away from [facility]. Patient has also been advised to not [...] Cecy Nicholas MA documented in this encounter [facility] 02-20-2024 Telephone encounter Note Approvals with refills [facility] 02-20-2024 Miscellaneous Notes Approvals with refills documented in this encounter [facility] 01-09-2024 History of Presen t illness [...] COSMETIC SURGERY 05/17/2020 [facility] [place] ELBOW SURGERY Left 1999 OTHER SURGICAL HISTORY [...] & Plan documented in this encounter [facility] 01-09-2024 Telephone encounter Note Patient is losing her insurance any day now. Can you refill all these for 90 days? Uses [facility] in [place]. She recently got and is switching to her husbands insurance. Thank you [facility] 01-09-2024 Miscellaneous Notes Patient is losing her insurance any day now. Can you refill all these for 90 days? Uses [facility] in [place]. She recently got and is switching to her husbands insurance. Thank you documented in this encounter [facility] 08-16-2021 Hospital Discharg e instructions Follow Up [facility] 08/16/2021 11:11:34 With:DESMOND BURKS, Scotty English, URL Address: [address] [place] [address] [address]- When: Unknown [facility] 08-16-2021 Hospital Discharg e instructions Patient Education 08/16/2021 11:04:11 Kidney Stones, Yubq-vg-Qxwa Kidney Stones Kidney stones are rock-like masses [...] Follow these instructions at home: Medicines Take raxq-yui-cayhunn and prescription medicines only as told by [...] 10/01/2008 Document Revised: 09/01/2019 Document Reviewed: 09/01/2019 [employer] Patient Education 2020 [employer] 08/16/2021 11:04:10 Calorie Counting for Weight Loss [...] 04/15/2006 Document Revised: 01/02/2019 Document Reviewed: 03/15/2017 [employer] Patient Education [employer]apps. Follow Up Care 03/22/2021 11:46:26 With:DESMOND BURKS, Scotty English, URL Address: When:Within 6 Month(s) Comments:sean/MAGALYS [facility] 05-11-2021 Note DISCHARGE SUMMARY PRIMARY DIAGNOSES: 1. [...] free and no longer on narcotics. [facility] Signed and Approved by: DR DOUGLAS LEWIS . 06/08/2021 22:19:00 [facility] 05-11-2021 Note OPERATIVE NOTE PROCEDURE: Primary low transverse section. PREOPERATIVE DIAGNOSIS: 1. Intrauterine at 39 weeks. 2. Non-reassuring heart tones. POSTOPERATIVE DIAGNOSIS: 1. Intrauterine at 39 weeks. 2. Non-reassuring heart tones. SURGEON: Douglas Lewis D.O. MERCURY WASHER: MELINA ANESTHESIA: Epidural with Duramorph. BLOOD LOSS: [...] the Recovery Room in stable condition. [facility] Signed and Approved by: DR DOUGLAS LEWIS . 06/08/2021 22:19:00 [facility] Evaluation + Plan note Future Appointments Appointment Date:09/19/2021 11:00:00 AM Scheduled Provider:Scotty LOGAN MD Location:[facility] Appointment Type:URO Phone Visit Appointment Date:02/21/2022 11:15:00 AM Scheduled Provider:Scotty LOGAN MD Location:[facility] Appointment Type:URO Office Visit [facility] Evaluation note Diagnosis Neck pain Cervicalgia Cervicogenic [...] [facility] Diagnosis Third trimester ([facility]) state, incidental 36 weeks gestation of ([facility]) documented [facility]* Diagnosis Nausea- Primary Nausea alone Third trimester ([facility]) state, incidental 35 weeks gestation of ([facility]) Anxiety, generalized [facility]* Diagnosis 37 weeks gestation of ([facility]) Third trimester ([facility]) state, incidental Anxiety, generalized History of gastric bypass documented [facility] noteNo assessment information [facility] Work Phone: Evaluation note* Diagnosis Encounter for visit ([facility]) Postop check Follow-up examination, following unspecified surgery S/P section Other postprocedural status Migraine without aura and without status migrainosus, not intractable [facility]* Diagnosis Intractable chronic migraine without aura and with status migrainosus- Primary Iron deficiency anemia secondary to inadequate dietary iron intake Depression, unspecified depression type [facility] Narrative No data available for this section [facility] Progress note No data available for this section [facility] Reason for referral (narrative)No reason for referral information [facility] Work Phone: Summary Purpose Family History No Family History Records FoundNo Family History Records FoundNo Family History Records Found No data available for this section No Family History Records FoundNo Family History Records FoundNo Family History Records Found Advance Directives No Advanced Directives Records Found Advance Directive Response Recorded Date/ Time Advance Directives No February 12, 2019 1:58pm Reason for Referral Specialty Diagnoses / Procedures Referred By Contac t Referred To Contact Radiology Diagnoses Other microscopic hematuria Procedures CT abdomen pelvis wo IV contrast Xena Mccallum MD [address] [place] [address] Referral ID Status Reason Start Date Expiration Date V isits Requested Visits Authorized [id number] Pending Review 01/11/2024 07/09/2024 1 1 Additional Source Comments INFORMATION SOURCE (unrecogn ized section and content) DATE CREATED AUTHOR 10/05/2018 [facility] l DATE CREATED AUTHOR AUTHOR'S ORGANIZ ATION 07/13/2021 [facility] dical Specialist DATE CREATED AUTHOR AUTHOR'S ORGANIZ ATION 05/09/2022 [facility] DATE CREATED AUTHOR AUTHOR'S ORGANIZ ATION 07/26/2023 Candelaria Michael [facility] DATE CREATED AUTHOR AUTHOR'S ORGANIZ ATION 11/19/2024 [facility] DATE CREATED AUTHOR AUTHOR'S ORGANIZ ATION 12/24/2024 [facility] dical Specialists EPIC Patient Care team informatio n (unrecognized section and content) Mask Designer Relationship Specialty Start Date End Date Xena Mccallum MD [address] [facility] [place] [address] PCP - General Family Medicine 09/04/22 Isabel Li NP [address] [facility] [place] [address] PCP - [facility] 10/28/23 Mask Designer Relationship Specialty Start Date End Date Xena Mccallum MD [address] [facility] [place] [address] PCP - General Family Medicine 09/04/22 Isabel Li NP [address] [facility] [place] [address] PCP - [facility] 10/28/23 Mask Designer Relationship Specialty Start Date End Date Xena Mccallum MD [address] [facility] [place] [address] PCP - General Family Medicine 09/04/22 Isabel Li NP [address] [facility] [place] [address] PCP - [facility] 10/28/23 Mask Designer Relationship Specialty Start Date End Date Xena Mccallum MD [address] [facility] [place] [address] PCP - General Family Medicine 09/04/22 Isabel Li NP [address] [facility] [place] [address] PCP - [facility] 10/28/23 Mask Designer Relationship Specialty Start Date End Date Xena Mccallum MD [address] [facility] [place] [address] PCP - General Family Medicine 09/04/22 Isabel Li [employer] [address] [facility] [place] [address] PCP - [facility] 10/28/23 Mask Designer Relationship Specialty Start Date End Date Xena Mccallum MD [address] [facility] [place] [address] PCP - General Family Medicine 09/04/22 Isabel Li NP PCP - [facility] 10/28/23 Mask Designer Relationship Specialty Start Date End Date Xena Mccallum MD [address] [place] [address] PCP - General Family Medicine 09/04/22 Isabel Li [employer] PCP [facility] 10/28/23 Mask Designer Relationship Specialty Start Date End Date Xena Mccallum MD [address] [place] [facility] [place] [address] PCP - General Family Medicine 09/04/22 Isabel Li [employer] PCP - [facility] 10/28/23 Mask Designer Relationship Specialty Start Date End Date Xena Mccallum MD [address] [facility] [place] [address] PCP - General Family [facility] 09/04/22 Isabel Li NP PCP [facility] 10/28/23 Mask Designer Relationship Specialty Start Date End Date Xena Mccallum MD [address] [facility] [place] [address] PCP - General Family Medicine 09/04/22 Isabel Li [employer] PCP [facility] 10/28/23 Mask Designer Relationship Specialty Start Date End Date Xena Mccallum MD [address] [facility] [place] [address] PCP - General Family Medicine 09/04/22 Isabel Li NP PCP [facility] 10/28/23 Mask Designer Relationship Specialty Start Date End Date Xena Mccallum MD [address] [facility] [place] [address] PCP - General Family Medicine 09/04/22 Isabel Li [employer] PCP [facility] 10/28/23 Mask Designer Relationship Specialty Start Date End Date Xena Mccallum MD [address] [facility] [place] [address] PCP - General Family Medicine 09/04/22 Isabel Li [employer] PCP - [facility] 10/28/23 Mask Designer Relationship Specialty Start Date End Date Xena Mccallum MD [address] [facility] [place] [address] PCP - General Family [facility] 09/04/22 Isabel Li NP PCP [facility] 10/28/23 Mask Designer Relationship Specialty Start Date End Date Xena Mccallum MD [address] [facility] [place] [address] PCP - General Family Medicine 09/04/22 Isabel Li [employer] PCP [facility] 10/28/23 Mask Designer Relationship Specialty Start Date End Date Xena Mccallum MD [address] [facility] [place] [address] PCP - General Family Medicine 09/04/22 Isabel Li NP PCP [facility] 10/28/23 Mask Designer Relationship Specialty Start Date End Date Xena Mccallum MD [address] [facility] [place] [address] PCP - General Family Medicine 09/04/22 Isabel Li [employer] PCP [facility] 10/28/23 Mask Designer Relationship Specialty Start Date End Date Xena Mccallum MD [address] [place] [address] PCP - General Family Medicine 09/04/22 Isabel Li [employer] PCP [facility] 10/28/23 Mask Designer Relationship Specialty Start Date End Date Xena Mccallum MD [address] [place] [address] PCP - [facility] Family [facility] 09/04/22 Isabel Li NP [facility] 10/28/23 Mask Designer Relationship Specialty Start Date End Date Xena Mccallum MD [address] [place] [address] PCP - [facility] 09/04/22 Isabel Li [employer] PCP [facility] 10/28/23 Mask Designer Relationship Specialty Start Date End Date Xena Mccallum MD [address] [place] [address] PCP - General Family Medicine 09/04/22 Isabel Li NP [facility] 10/28/23 Team Status: Inactive Member Role Status Dates Douglas Lewis DO Attending Provider Active Start : November 12, 2024 End: November 12, 2024 Reason for Visit (unrecogniz ed section and content) Reason Comments UTI Patient presents tod ay for painful urination, pink colored urine. Patient states that it started about 2 days ago. Reason Comments Amenorrhea Reason Comments Routine Visit Reason Comments Care Post-op Visit Reason Comments Headache Goals (unrecognized section and content) Goals may be documented in a n alternate section FOR RECORDS PERTAINING TO PATIENTS WHO ARE [...] BE BASED ON THE PRIMARY CLINICAL RECORDS. [employer] provides no warranty or guarantee of the accuracy or completeness of information in this document.
[2025-01-02 16:42] VITALS: BP 129/72; PULSE 71; O2SAT 97
--- NOTE | 2025-01-02 18:27 | ED.GENADUL1 ---
HPI HPI - General Adult General Chief complaint: Extremity Problem, Nontraumatic Stated complaint: breast pain Time Seen by Provider: 01/02/25 15:52 Source: patient Mode of arrival: walk-in History of Present Illness HPI narrative: Patient is a healthy 29-year-old female with no medical conditions, presenting to the emergency department for evaluation of right breast pain. Patient states that she is currently breast-feeding as she had a baby 3 weeks ago. She states that over the last 24 hours she has had worsening redness, swelling, and pain throughout the inner part of her right breast. She states she has flulike symptoms as well, feels generally fatigued and ill. She denies any other symptoms such as cough, congestion, abdominal pain, nausea, or vomiting. Related Data Home Medications ?Medication ?Instructions ?Recorded ?Confirmed Busperone 11/04/24 Celexa 11/04/24 Magnesium 11/04/24 PNV 11/04/24 Phenergan 11/04/24 Slow FE 11/04/24 buspirone 10 mg tablet mg 11/12/24 citalopram 20 mg tablet mg 11/12/24 magnesium oxide 400 mg (241.3 mg mg 11/12/24 magnesium) tablet promethazine 12.5 mg tablet mg 11/12/24 Previous Rx's ?Medication ?Instructions ?Recorded cyclobenzaprine 5 mg tablet 5 mg PO BID PRN muscle spasm 14 11/13/24 days #28 tabs ibuprofen 800 mg tablet 800 mg PO Q8H PRN pain 14 days #40 11/13/24 tabs oxycodone-acetaminophen 5 mg-325 1 tab PO Q6H PRN pain 4 days #16 11/13/24 mg tablet (Percocet) tabs cephalexin 500 mg capsule 500 mg PO Q6H 10 days #40 caps 01/02/25 Allergies Allergy/AdvReac Type Severity Reaction Status Date / Time morphine Allergy Intermediate Rash Verified 11/12/24 06:53 clindamycin AdvReac Severe Anaphylaxis Verified 11/12/24 06:53 Penicillins AdvReac Severe Rash Verified 11/12/24 06:53 Opioid HPI Opioid Management Most Recent Opioid Data: Last Pain Scale 7 11/14/24, 08:49 Ur Phencyclidine Scrn, (NEGATIVE) Negative 11/12/24, 05:50 Review of Systems ROS Status of ROS 10 or more systems reviewed and unremarkable except as noted in history and below [facility] Medical History (Updated 01/02/25 @ 16:11 by Ruslan Zurita DO) H/O anxiety disorder ?Z86.59 - Personal history of other mental and behavioral disorders (ICD-10) Surgical History (Updated 11/04/24 @ 11:08 by Sharita Holcomb) H/O section ?Z98.891 - History of uterine scar from previous surgery (ICD-10) Hx of lithotripsy ?Z98.890 - Other specified postprocedural states (ICD-10) H/O abdominoplasty (~04/2020) ?Z98.890 - Other specified postprocedural states (ICD-10) H/O gastric bypass (~12/2021) ?Z98.84 - Bariatric surgery status (ICD-10) H/O gastric sleeve (~07/2018) ?Z90.3 - Acquired absence of stomach [part of] (ICD-10) H/O elbow surgery (~2004) ?Z98.890 - Other specified postprocedural states (ICD-10) Social History Highest level of school completed/degree received: some college, no degree Little interest or pleasure in doing things: not at all Feeling down, depressed, or hopeless: not at all Exam Narrative Exam Narrative: CONSTITUTIONAL: Nontoxic-appearing, answering questions and following commands appropriately SKIN: Was warm and dry. EYES: Sclerae white. EARS, NOSE, THROAT: Moist oral mucosa. RESPIRATORY: Nonlabored respirations CARDIOVASCULAR: Normal rate and regular rhythm. GASTROINTESTINAL: Abdomen is nondistended. MUSCULOSKELETAL: No peripheral edema. NEUROLOGIC: Patient is awake and alert. Facies were symmetrical. BREAST: The right breast is erythematous from the 3 o'clock to 6 o'clock position. There is induration and tenderness to palpation. No nipple retraction or discharge. No crepitus. No purulent draining or fluctuance. Constitutional Vital Signs, click to edit/add: Last Vital Signs Temp 98.1 F 01/02/25 15:39 Pulse 71 01/02/25 16:42 Resp 14 01/02/25 16:42 BP 129/72 01/02/25 16:42 Pulse Ox 97 01/02/25 16:42 O2 Del Method Room Air 01/02/25 16:42 Course Vital Signs Vital signs: Vital Signs Temperature 98.1 F 01/02/25 15:39 Pulse Rate 78 01/02/25 15:39 Respiratory Rate 18 01/02/25 15:39 Blood Pressure 112/79 01/02/25 15:39 Pulse Oximetry 99 01/02/25 15:39 Oxygen Delivery Method Room Air 01/02/25 15:39 Temperature 98.1 F 01/02/25 15:39 Pulse Rate 71 01/02/25 16:42 Respiratory Rate 14 01/02/25 16:42 Blood Pressure 129/72 01/02/25 16:42 Pulse Oximetry 97 01/02/25 16:42 Oxygen Delivery Method Room Air 01/02/25 16:42 Medical Decision Making MDM Narrative Medical decision making narrative: Patient is a 29-year-old female, currently breast-feeding, presenting to the emergency department with a 24-hour history of flulike symptoms and right sided breast pain/erythema. Her vital signs are within normal limits. She is afebrile and hemodynamically stable. Other than the right breast tenderness, she has no other systemic symptoms. She is nontoxic and generally appears well. Patient's history and physical examination is consistent with right side mastitis. She was given a prescription for Keflex 500 mg every 6 hours x 10 days for treatment. She was instructed to continue breast-feeding. She has an appointment with her LOOP CUTTER in 2 days. I recommended she maintain this appointment for further care. Return precautions were given inlcuding any new or concerning symptoms, such as intractable fevers, nausea, vomiting, or other concerning systemic symptoms. Patient understands and agrees to the plan. FINAL IMPRESSION: #Acute right sided mastitis DISPOSITION: Discharged home CONDITION: Fair Discharge Plan Discharge Chief Complaint: Extremity Problem, Nontraumatic Clinical Impression: Mastitis Patient Disposition: Home, Self-Care Time of Disposition Decision: 16:11 Condition: Good Mode of Transportation: Private Vehicle Prescriptions / Home Meds: New cephalexin 500 mg capsule 500 mg PO Q6H 10 Days Qty: 40 0RF No Action Busperone Celexa Magnesium PNV Phenergan Slow FE promethazine 12.5 mg tablet citalopram 20 mg tablet magnesium oxide 400 mg (241.3 mg magnesium) tablet buspirone 10 mg tablet ibuprofen 800 mg tablet 800 mg PO Q8H PRN (Reason: pain) 14 Days Qty: 40 0RF oxycodone-acetaminophen [Percocet] 5-325 mg tablet 1 tab PO Q6H PRN (Reason: pain) 4 Days Qty: 16 0RF cyclobenzaprine 5 mg tablet 5 mg PO BID PRN (Reason: muscle spasm) 14 Days Qty: 28 0RF Print Language: Arabic Instructions: Mastitis (ED) Referrals: NARINDER HERNANDEZ [Primary Care Provider, Family Practice] - 1 week Discharge Date/Time: 01/02/25 16:43
== END 2025-01-02 16:43 | disposition home or self-care (01) ==
PROVIDERS: Emergency Provider Student in an Organized Health Care Education/Training Program; PCP Family Medicine
DX: O91.23 Nonpurulent mastitis associated with lactation (principal); Z98.84 Bariatric surgery status
CPT/HCPCS: 99283